=== PATIENT | female | born 1995 | race Caucasian/White ===

== ENCOUNTER 2023-11-01 23:56 | Emergency (ER) | payer BC, SELFPAY ==
[2023-11-02 00:06] VITALS: BP 163/98; PULSE 86; TEMP 36.7; O2SAT 100; BMI 32.1
--- NOTE | 2023-11-02 00:14 | ED_ITS ---
HPI - Abdominal Pain General Chief Complaint: Abdominal Pain Stated Complaint: nauseous/vomiting Time Seen by Provider: 11/02/23 00:04 Source: patient Mode of arrival: walk-in Limitations: no limitations History of Present Illness HPI narrative: This 28-year-old female who is 8 months and status post appendectomy presents for evaluation of low back and generalized abdominal pain. She states the majority of her pain is in the right lower quadrant. She is very nauseated but has not vomited. She has not had any diarrhea. She denies any urinary symptoms. She does the possibility of but is uncertain if she could be . She is not having any urinary symptoms. She thinks she may have had a fever several days ago. She is not breast-feeding. Related Data Allergies Allergy/AdvReac Type Severity Reaction Status Date / Time amoxicillin AdvReac Mild Hives Verified 11/02/23 00:06 Review of Systems ROS Status of ROS 10 or more systems reviewed and unremark able except as noted in history and below Exam Narrative Exam Narrative: Nurses note and vital signs reviewed and patient is not hypoxic. Blood pressure noted to be elevated at 163/98 General: Alert, nontoxic female, she is uncomfortable appearing, she is rubbing her lower abdomen, no respiratory distress, no active vomiting Skin: Warm, dry, no pallor noted. There is no rash noted. Head: Normocephalic, atraumatic Eye: Normal conjunctiva, no drainage, EOMI. PERRL. No scleral icterus Ears, Nose, Mouth, and Throat: oral mucosa is moist. Nares patent. Mouth without vesicles. Ear canals patent. Tm's without Erythema Cardiovascular: Regular Rate and Rhythm Respiratory: Patient is in no distress, no accessory muscle use, lungs are clear to auscultation, no wheezing, rales or rhonchi Back: non-tender, no CVA tenderness bilaterally to percussion. GI: Normal bowel sounds, Obese, soft, generalized abdominal tenderness, she localizes to the epigastrium and RUQ There is no McBurney's point tenderness, negative Rovsing sign Musculoskeletal:No CVA tenderness, no lower extremity swelling or tenderness Neurological: A&O x4, normal speech Psychiatric: Cooperative Constitutional Vital Signs, click to edit/add: Last Vital Signs Temp 98.1 F 11/02/23 00:06 Pulse 86 11/02/23 00:06 Resp 20 11/02/23 00:06 BP 163/98 H 11/02/23 00:06 Pulse Ox 100 11/02/23 00:06 O2 Del Method Room Air 11/02/23 00:06 Course Vital Signs Vital signs: Vital Signs Temperature 98.1 F 11/02/23 00:06 Pulse Rate 86 11/02/23 00:06 Respiratory Rate 20 11/02/23 00:06 Blood Pressure 163/98 H 11/02/23 00:06 Pulse Oximetry 100 11/02/23 00:06 Oxygen Delivery Method Room Air 11/02/23 00:06 Temperature 98.1 F 11/02/23 00:06 Pulse Rate 86 11/02/23 00:06 Respiratory Rate 20 11/02/23 00:06 Blood Pressure 163/98 H 11/02/23 00:06 Pulse Oximetry 100 11/02/23 00:06 Oxygen Delivery Method Room Air 11/02/23 00:06 MDM - Abdominal Pain MDM Narrative Medical decision making narrative: This 28-year-old female presents for evaluation of 3 days of abdominal pain and low back pain. She has had nausea but no vomiting. She does possibility of but is not on control. She thinks she may have had a fever several days ago but has not had a documented fever. She was tender in epigastrium and right upper quadrant. She has had her appendix out in the past. She denies any chest pain or shortness of breath. Her test was negative and she was medicated with IV fluids, Zofran and Toradol. She is driving so narcotics were withheld. She had moderate relief of her pain but still had ongoing nausea and was remedicated with IV Reglan. Routine labs are reviewed. She has a normal white count and hemoglobin. Electrolytes and liver function tests are normal. Her lipase is mildly elevated at 94. CT scan of the abdomen and pelvis shows gallbladder wall thickening and some cholecystic fluid without notable gallstones and a 7 mm left-sided kidney stone. The results of the scans were discussed with her and she was given a copy to share with her family physician. It also recommended the right upper quadrant ultrasound for further evaluation of the gallbladder. She will be discharged home with 2 [place] as a home pack and prescription for [place], Zofran and a requisition for right upper quadrant ultrasound with referral to outpatient general surgery. A low fat diet was discussed with her. Medical Records Medical records narrative: The [address] [address] [address] Scan Report Signed Patient: SILVER ALCOCER MR#: [id number] : 1995 Acct:[id number] Age/Sex: 28 / F ADM Date: 11/01/23 Loc: ER Attending Dr: Ordering Physician: Therese Carey Date of Service: 11/02/23 Procedure(s): CT abdomen pelvis w con Accession Number(s): [id number] cc: Physician,Non-Staff M.D.~ The [address] [address] Patient Name: SILVER ALCOCER MRN: [facility]:[id number] date: 1995 Sex: F Assigned Patient Location: ER Current Patient Location: ER Accession/Order Number: [id number] Exam Date: 11/02/2023 01:03 Report Date: 11/02/2023 01:40 At the request of: THERESE CAREY Procedure: CT abdomen pelvis w con EXAM: CT abdomen pelvis w con HISTORY: RLQ abd pain COMPARISON: Pelvic ultrasound 02/27/2020 TECHNIQUE: CT of abdomen and pelvis with intravenous contrast. Dose reduction techniques were achieved by using automated exposure control and/or adjustment of mA and/or kV according to patient size and/or use of iterative reconstruction technique. FINDINGS: TUBES AND IMPLANTS: None. LOWER CHEST: Unremarkable ABDOMEN and PELVIS ABDOMINAL WALL AND SOFT TISSUES: Unremarkable. BONES: No suspicious lesions. Multilevel degenerative changes of the spine. ARTERIES: No aortoiliac aneurysm VEINS: Unremarkable. LYMPH NODES: Unremarkable. PERITONEUM/ RETROPERITONEUM: Trace free pelvic fluid BOWEL: No obstruction APPENDIX: Unremarkable as visualized portions. LIVER: No suspicious lesions. GALLBLADDER: There is submucosal edema or pericholecystic fluid. No radiopaque stones. BILE DUCTS: Not dilated SPLEEN: Borderline enlarged measuring 12.6 centimeters PANCREAS: Unremarkable. ADRENALS: Unremarkable. KIDNEYS/ URETERS: Nonobstructive 7 millimeter left renal calculus seen within a mid pole calyx. No right stones or hydronephrosis.. REPRODUCTIVE ORGANS: Unremarkable URINARY BLADDER: Unremarkable. CT/CT abdomen pelvis w con IMPRESSION: 1. Gallbladder wall edema or pericholecystic fluid without radiopaque stones. This may represent acute on chronic cholecystitis. Right upper quadrant ultrasound for further evaluation as warranted. 2. Appendix appears unremarkable in its visualized segments. No secondary signs of inflammation to suggest acute appendicitis. 3. Trace pelvic fluid thought to be physiologic. 4. Nonobstructing 7 millimeter left renal calculus. 5. Borderline enlarged spleen. Electronically authenticated by: FORD BARRY Date: 11/02/2023 01:40 Lab Data Labs: Lab Results 11/02/23 11/02/23 Range/Units 00:25 00:30 WBC 10.4 (4.0-11.0) 10^3/uL RBC 4.85 (4.20-5.40) 10^6/uL Hgb 14.6 (12.0-16.0) g/dL Hct 41.6 (36.0-48.0) % MCV 85.8 (81.0-99.0) fL MCH 30.1 (26.7-34.0) pg MCHC 35.1 (29.9-35.2) g/dL RDW 11.9 (11.0-15.0) % Plt Count 335 (150-450) 10^3/uL MPV 9.6 (9.5-13.5) fL Neut % (Auto) 66.0 (43.0-75.0) % Lymph % (Auto) 25.0 (20.5-60.0) % Dougherty % (Auto) 8.0 (1.7-12.0) % Eos % (Auto) 0.3 L (0.9-7.0) % Baso % (Auto) 0.4 (0.2-2.0) % Neut # (Auto) 6.9 H (1.4-6.5) 10^3/uL Lymph # (Auto) 2.6 (1.2-3.8) 10^3/uL Dougherty # (Auto) 0.8 (0.3-0.8) 10^3/uL Eos # (Auto) 0.0 (0.0-0.7) 10^3/uL Baso # (Auto) 0.0 (0.0-0.1) 10^3/uL Abs Immat Gran (auto) 0.03 (0.00-0.03) 10^3/uL Imm/Tot Granulo (auto) 0.3 (0.0-0.5) % Sodium 136 (136-145) mmol/L Potassium 3.3 L (3.5-5.1) mmol/L Chloride 98 (98-107) mmol/L Carbon Dioxide 27.6 (21.0-32.0) mmol/L Anion Gap 13.7 BUN 19.0 H (7.0-18.0) mg/dL Creatinine 1.07 H (0.55-1.02) mg/dL Est GFR ( Amer) >60 (>=60) Est GFR (Non-Af Amer) >60 (>=60) BUN/Creatinine Ratio 17.8 Glucose 107 H (74-106) mg/dL Calcium 12.0 H (8.5-10.1) mg/dL Total Bilirubin 0.4 (0.2-1.0) mg/dL AST 17 (15-37) U/L ALT 32 (14-59) U/L Alkaline Phosphatase 106 (46-116) U/L Total Protein 9.1 H (6.4-8.2) g/dL Albumin 4.7 (3.4-5.0) g/dL Globulin 4.4 g/dL Albumin/Globulin Ratio 1.1 Lipase 94.0 H (16.0-77.0) U/L Urine Color Lt. yellow (YELLOW) Urine Clarity Clear (CLEAR) Urine pH 8.0 (5.0-9.0) Ur Specific Perkins 1.015 (1.005-1.025) Urine Protein Negative (NEG/TRACE) mg/dL Urine Glucose (UA) Negative (NEGATIVE) mg/dL Urine Ketones Negative (NEGATIVE) mg/dL Urine Occult Blood Negative (NEGATIVE) Urine Nitrite Negative (NEGATIVE) Urine Bilirubin Negative (NEGATIVE) Urine Urobilinogen 0.2 (0.2-1.0) EU/dL Ur Leukocyte Esterase Negative (NEGATIVE) Urine RBC 0-2 (0-2) #/HPF Urine WBC None seen (NONE SEEN) #/HPF Ur Squamous Epith Cells Many A (NONE/RARE) #/LPF Urine Crystals Seen A (None Seen) #/HPF Amorphous Sediment Many Urine Bacteria Moderate A (NONE SEEN) #/HPF Urine Casts None seen (NONE SEEN) #/LPF Urine Mucus None seen (NONE SEEN) Ur Culture Indicated? Yes Urine HCG, Qual Negative (NEGATIVE) Discharge Plan Discharge Stand Alone Forms: Portal Instructions Chief Complaint: Abdominal Pain Clinical Impression: Abdominal pain, Biliary colic Patient Disposition: Home, Self-Care Time of Disposition Decision: 02:14 Condition: Good Print Language: Hebrew Instructions: Biliary Colic (ED), Low Fat Diet (ED) Referrals: Milan Betts MD [Physician] - 1 week Physician,Non-StaffMD [Primary Care Provider] - 1 week
--- NOTE | 2023-11-02 00:35 | PC.NURSE ---
patient describes abdominal and back pain x3 days. Back pain is right sided to mid back, abdominal pain is bilateral lower abdomen. Pain increased last evening and has gotten so bad it is causing the patient to vomit and have constant nausea. she states she is not having pain with urination, but bladder feels heavy . Urine sample is obtained. Patient states she had 8 months ago and her incision has been hurting for a few weeks. She mentions wondering if the pain in her back could be from her epidural, but is not sure if it is in the same location. She denies history of kidney stones.
--- NOTE | 2023-11-02 00:40 | CT_ITS ---
[address] [address] Patient Name: SILVER ALCOCER MRN: [id number] date: 1995 Sex: F Assigned Patient Location: ER Current Patient Location: ER Accession/Order Number: [id number] Exam Date: 11/02/2023 01:03 Report Date: 11/02/2023 01:40 At the request of: KARINA MARKER Procedure: CT abdomen pelvis w con EXAM: CT abdomen pelvis w con HISTORY: RLQ abd pain COMPARISON: Pelvic ultrasound 02/27/2020 TECHNIQUE: CT of abdomen and pelvis with intravenous contrast. Dose reduction techniques were achieved by using automated exposure control and/or adjustment of mA and/or kV according to patient size and/or use of iterative reconstruction technique. FINDINGS: TUBES AND IMPLANTS: None. LOWER CHEST: Unremarkable ABDOMEN and PELVIS ABDOMINAL WALL AND SOFT TISSUES: Unremarkable. BONES: No suspicious lesions. Multilevel degenerative changes of the spine. ARTERIES: No aortoiliac aneurysm VEINS: Unremarkable. LYMPH NODES: Unremarkable. PERITONEUM/ RETROPERITONEUM: Trace free pelvic fluid BOWEL: No obstruction APPENDIX: Unremarkable as visualized portions. LIVER: No suspicious lesions. GALLBLADDER: There is submucosal edema or pericholecystic fluid. No radiopaque stones. BILE DUCTS: Not dilated SPLEEN: Borderline enlarged measuring 12.6 centimeters PANCREAS: Unremarkable. ADRENALS: Unremarkable. KIDNEYS/ URETERS: Nonobstructive 7 millimeter left renal calculus seen within a mid pole calyx. No right stones or hydronephrosis.. REPRODUCTIVE ORGANS: Unremarkable URINARY BLADDER: Unremarkable. CT/CT abdomen pelvis w con IMPRESSION: 1. Gallbladder wall edema or pericholecystic fluid without radiopaque stones. This may represent acute on chronic cholecystitis. Right upper quadrant ultrasound for further evaluation as warranted. 2. Appendix appears unremarkable in its visualized segments. No secondary signs of inflammation to suggest acute appendicitis. 3. Trace pelvic fluid thought to be physiologic. 4. Nonobstructing 7 millimeter left renal calculus. 5. Borderline enlarged spleen. Electronically authenticated by: FORD BARRY Date: 11/02/2023 01:40
[2023-11-02] MEDS: 0.9 % SODIUM CHLORIDE 1,000 ML 1000 ML IV (00:45)
[2023-11-02] MEDS: ONDANSETRON PF 4 MG/2 ML VIAL IV (00:45)
[2023-11-02 00:48] LABS: Basophils Percent Auto 0.4 % (0.2-2.0); Eosinophils Percent Auto 0.3 % (0.9-7.0); Hematocrit 41.6 % (36.0-48.0); Hemoglobin 14.6 g/dL (12.0-16.0); Immature Granulocytes Abs Auto 0.03 10^3/uL (0.00-0.03); Immature Granulocytes Pct Auto 0.3 % (0.0-0.5); Lymphocytes Absolute Auto 2.6 10^3/uL (1.2-3.8); Mean Corpuscular HGB Conc 35.1 g/dL (29.9-35.2); Mean Corpuscular Hemoglobin 30.1 pg (26.7-34.0); Mean Corpuscular Volume 85.8 fL (81.0-99.0); Mean Platelet Volume 9.6 fL (9.5-13.5); Monocytes Absolute Auto 0.8 10^3/uL (0.3-0.8); Neutrophils Absolute Auto 6.9 10^3/uL (1.4-6.5); Platelet Count 335 10^3/uL (150-450); Red Blood Count 4.85 10^6/uL (4.20-5.40); Red Cell Distribution Width 11.9 % (11.0-15.0); White Blood Count 10.4 10^3/uL (4.0-11.0)
[2023-11-02 00:53] LABS: HCG Qualitative Urine* NEGATIVE (NEGATIVE)
[2023-11-02 00:59] LABS: Bilirubin Urine NEGATIVE (NEGATIVE); Blood Urine NEGATIVE (NEGATIVE); Clarity Urine CLEAR (CLEAR); Color Urine LT. YELLOW (YELLOW); Glucose Urine UA NEGATIVE (NEGATIVE); Ketones Urine NEGATIVE (NEGATIVE); Leukocyte Esterase Urine NEGATIVE (NEGATIVE); Nitrite Urine NEGATIVE (NEGATIVE); Protein Urine NEGATIVE (NEG/TRACE); Specific Gravity Urine 1.015 (1.005-1.025); Urobilinogen Urine 0.2 EU/dL (0.2-1.0)
[2023-11-02 01:04] LABS: Alanine Aminotransferase 32 U/L (14-59); Albumin Globulin Ratio 1.1; Albumin Level 4.7 g/dL (3.4-5.0); Alkaline Phosphatase 106 U/L (46-116); Anion Gap 13.7; Aspartate Amino Transferase 17 U/L (15-37); BUN Creatinine Ratio 17.8; Bilirubin Total 0.4 mg/dL (0.2-1.0); Carbon Dioxide 27.6 mmol/L (21.0-32.0); Chloride 98 mmol/L (98-107); Estimated GFR (African America >60 (>=60); Estimated GFR (Non-African Ame >60 (>=60); Globulin 4.4 g/dL; Glucose 107 mg/dL (74-106); Potassium 3.3 mmol/L (3.5-5.1); Sodium 136 mmol/L (136-145); Total Protein 9.1 g/dL (6.4-8.2)
[2023-11-02 01:04] LABS: Amorphous Sediment Urine MANY; Bacteria Urine MODERATE #/HPF (NONE SEEN); Cast Seen? NONE SEEN #/LPF (NONE SEEN); Crystals Seen? Seen #/HPF (None Seen); Mucus Urine NONE SEEN (NONE SEEN); RBC Urine 0-2 #/HPF (0-2); Squamous Epithelial Cell Urine MANY #/LPF (NONE/RARE); Urine Culture Indicated YES; WBC Urine NONE SEEN #/HPF (NONE SEEN)
[2023-11-02] MEDS: KETOROLAC TROMETHAMINE 30 MG/ML VIAL IVP (01:45)
[2023-11-02] MEDS: METOCLOPRAMIDE HCL 10 MG/2 ML VIAL IVP (02:07)
[2023-11-02] MEDS: ONDANSETRON 4 MG RAPDIS TABLET SL (02:30)
[2023-11-02] MEDS: HYDROCODONE/ACET 5-325 MG TABLET 2 TAB PO (02:30)
== END 2023-11-02 02:30 | disposition home or self-care (01) ==
PROVIDERS: Emergency Provider Emergency Medicine
DX: R10.9 Unspecified abdominal pain (principal); N23 Unspecified renal colic
CPT/HCPCS: 36415; 74177; 80053; 81001; 83690; 84703; 85025; 87086; 96374; 96375; 99284; Q9967

== ENCOUNTER 2023-11-08 08:33 | Outpatient (OUT) | payer BC, SELFPAY ==
--- NOTE | 2023-11-08 08:35 | US_ITS ---
The [address] [address] Patient Name: SILVER ALCOCER MRN: [id number] date: 1995 Sex: F Assigned Patient Location: US Current Patient Location: US Accession/Order Number: [id number] Exam Date: 11/08/2023 08:40 Report Date: 11/08/2023 09:44 At the request of: KARINA MARKER Procedure: US right upper quadrant EXAM: US right upper quadrant HISTORY: Right Upper Abdominal Pain COMPARISON: None. TECHNIQUE: Grayscale, color and Doppler FINDINGS: The liver is normal in size, contour and echotexture measuring 17.2 cm in length. No hepatic mass. Hepatopedal flow in the main portal vein with velocity of 34 cm/s. The gallbladder is normal in size. The wall measures 2.5 mm, normal. Negative sonographic García sign. Echogenic material completely fills the gallbladder with acoustic shadowing likely representing a combination of gallbladder sludge and cholelithiasis. No pericholecystic fluid. The common bile duct measures 2.2 mm, normal. The visualized pancreatic body is normal. The pancreas is poorly visualized The right kidney is normal measuring 11.2 x 5.0 x 4.3 cm. Diffuse medullary hyperechogenicity, consider a medullary nephrocalcinosis No ascites US/US right upper quadrant IMPRESSION: Extensive cholelithiasis/gallbladder sludge without evidence of acute cholecystitis Findings suggesting right renal medullary nephrocalcinosis Electronically authenticated by: CALDERON OLSON Date: 11/08/2023 09:44
== END 2023-11-08 08:34 | disposition home or self-care (01) ==
LOC: US 08:33
PROVIDERS: Visit Provider Emergency Medicine
DX: R10.11 Right upper quadrant pain (principal); K80.20 Calculus of gallbladder without cholecystitis without obstruction; E83.59 Other disorders of calcium metabolism; N29 Other disorders of kidney and ureter in diseases classified elsewhere
CPT/HCPCS: 76705

== ENCOUNTER 2023-11-27 02:16 | Emergency (ER) | payer BC, SELFPAY ==
[2023-11-27 02:20] VITALS: BP 169/105; PULSE 86; TEMP 36.9; O2SAT 99; BMI 32.1
[2023-11-27 02:24] VITALS: BP 142/88; PULSE 84; O2SAT 99
--- NOTE | 2023-11-27 02:33 | ED.ABDPAIN1 ---
HPI - Abdominal Pain General Chief Complaint: Abdominal Pain Stated Complaint: ABD PAIN vomiting Time Seen by Provider: 11/27/23 02:28 Source: patient Mode of arrival: walk-in Limitations: no limitations History of Present Illness HPI narrative: patient has known gallbladder sludge/stones. Scheduled for elective cholecystectomy first week of December. Presents now complaining of pain since yesterday . Pain continues along with recurrent vomiting. No fever or dyspnea. Related Data Home Medications ?Medication ?Instructions ?Recorded ?Confirmed hydrocodone 5 mg-acetaminophen 325 tab 11/27/23 mg tablet ondansetron HCl 4 mg tablet mg 11/27/23 Allergies Allergy/AdvReac Type Severity Reaction Status Date / Time amoxicillin AdvReac Mild Hives Verified 11/27/23 02:23 Review of Systems ROS Status of ROS 10 or more systems reviewed and unremarkable except as noted in history and below Exam Constitutional Vital Signs, click to edit/add: Last Vital Signs Temp 98.4 F 11/27/23 02:20 Pulse 84 11/27/23 02:24 Resp 22 H 11/27/23 02:24 BP 142/88 H 11/27/23 02:24 Pulse Ox 99 11/27/23 02:24 Common normals: average body habitus, oriented x3, no limitations, healthy appearing, alert and well nourished General appearance: in distress (mild) Eye Common normals: EOMs intact bilaterally and conjunctivae normal Respiratory Common normals: normal respiratory effort, no retractions, no use of accessory muscles and clear to auscultation bilaterally Cardio Common normals: regular rate, regular rhythm, S1 normal heart sound and S2 normal heart sound GI Other: soft. RUQ tenderness Extremity Common normals: normal to inspection and full ROM Neuro Common normals: oriented x3, CN's II-XII intact bilaterally, moves all extremities and no focal motor deficits Psych Appearance: grossly normal Course Vital Signs Vital signs: Vital Signs Temperature 98.4 F 11/27/23 02:20 Pulse Rate 86 11/27/23 02:20 Respiratory Rate 18 11/27/23 02:20 Blood Pressure 169/105 H 11/27/23 02:20 Pulse Oximetry 99 11/27/23 02:20 Temperature 98.4 F 11/27/23 02:20 Pulse Rate 84 11/27/23 02:24 Respiratory Rate 22 H 11/27/23 02:24 Blood Pressure 142/88 H 11/27/23 02:24 Pulse Oximetry 99 11/27/23 02:24 MDM - Abdominal Pain MDM Narrative Medical decision making narrative: patient re examined after labs returned. States pain and nausea are returning. Additional fluids, anti emetics and pain meds order. GB US ordered for later this AM. care transferred to Dr Dolan at change of shift to review results of US and disposition the patient Lab Data Labs: Lab Results 11/27/23 11/27/23 Range/Units 02:58 05:37 WBC 15.1 H (4.0-11.0) 10^3/uL RBC 4.47 (4.20-5.40) 10^6/uL Hgb 13.1 (12.0-16.0) g/dL Hct 38.5 (36.0-48.0) % MCV 86.1 (81.0-99.0) fL MCH 29.3 (26.7-34.0) pg MCHC 34.0 (29.9-35.2) g/dL RDW 12.1 (11.0-15.0) % Plt Count 401 (150-450) 10^3/uL MPV 9.6 (9.5-13.5) fL Neut % (Auto) 72.7 (43.0-75.0) % Lymph % (Auto) 19.9 L (20.5-60.0) % Grainger % (Auto) 6.2 (1.7-12.0) % Eos % (Auto) 0.6 L (0.9-7.0) % Baso % (Auto) 0.3 (0.2-2.0) % Neut # (Auto) 11.0 H (1.4-6.5) 10^3/uL Lymph # (Auto) 3.0 (1.2-3.8) 10^3/uL Grainger # (Auto) 0.9 H (0.3-0.8) 10^3/uL Eos # (Auto) 0.1 (0.0-0.7) 10^3/uL Baso # (Auto) 0.1 (0.0-0.1) 10^3/uL Abs Immat Gran (auto) 0.05 H (0.00-0.03) 10^3/uL Imm/Tot Granulo (auto) 0.3 (0.0-0.5) % Sodium 140 (136-145) mmol/L Potassium 3.8 (3.5-5.1) mmol/L Chloride 101 (98-107) mmol/L Carbon Dioxide 22.9 (21.0-32.0) mmol/L Anion Gap 19.9 BUN 21.0 H (7.0-18.0) mg/dL Creatinine 1.11 H (0.55-1.02) mg/dL Est GFR ( Amer) >60 (>=60) Est GFR (Non-Af Amer) 58 L (>=60) BUN/Creatinine Ratio 18.9 Glucose 116 H (74-106) mg/dL Lactate 2.9 H* 0.8 (0.4-2.0) mmol/L Calcium 10.8 H (8.5-10.1) mg/dL Total Bilirubin 0.5 (0.2-1.0) mg/dL AST 12 L (15-37) U/L ALT 22 (14-59) U/L Alkaline Phosphatase 85 (46-116) U/L Troponin I High Sens 12.1 (4.0-51.3) pg/mL Total Protein 8.3 H (6.4-8.2) g/dL Albumin 4.4 (3.4-5.0) g/dL Globulin 3.9 g/dL Albumin/Globulin Ratio 1.1 Lipase 74.0 (16.0-77.0) U/L Discharge Plan Discharge Chief Complaint: Abdominal Pain Clinical Impression: Abdominal pain Patient Disposition: Still a Patient Prescriptions / Home Meds: No Action hydrocodone-acetaminophen 5-325 mg tablet ondansetron HCl 4 mg tablet Print Language: Italian Referrals: Physician,Non-Staff, MD [Primary Care Provider] - 1 week
--- OUTSIDE RECORDS SUMMARY | 2023-11-27 02:40 | XMS_ITS | CCD ---
Author Organization [facility] Care Team Providers Care Account Receivable Associate Name Role Phone Jeremiah, Vikas Unavailable Unavailable Aichholz, Mia Halie Unavailable Unavailable Mariza, Rosita C Unavailable Unavailable Jeremiah, Vikas J Unavailable Unavailable Aichholz, Mia Halie Unavailable Unavailable Mariza, Rosita C Unavailable Unavailable Jeremiah, Vikas J Unavailable Unavailable KARASIK ., DR RASHID Admitting Unavailabl e KARASIK ., DR RASHID Attending Unavailabl e MISC, DR ELAINE Primary Care Unavailable KARASIK ., DR RASHID Consulting Unavailabl e KARASIK ., DR RASHID Admitting Unavailabl e KARASIK ., DR RASHID Attending Unavailabl e MISC, DR ELAINE Primary Care Unavailable KARASIK ., DR RASHID Consulting Unavailabl e KARASIK ., DR RASHID Admitting Unavailabl e KARASIK ., DR RASHID Attending Unavailabl e MISC, DR ELAINE Primary Care Unavailable KARASIK ., DR RASHID Consulting Unavailabl e KARASIK ., DR RASHID Admitting Unavailabl e KARASIK ., DR RASHID Attending Unavailabl e REQUEST, DR NONE LISTED Primary Care Unavaila ble KARASIK ., DR RASHID Consulting Unavailabl e ZIEBUMBERTO, DR YOMAIRA De Jesus Consulting Unavailable MISC, DR EALINE Primary Care Unavailable PAY ., DR RUSSO Admitting Unavailable PAY ., DR RUSSO Attending Unavailable PAY ., DR RUSSO Consulting Unavailable HAY ., DR PARR Admitting Unavailable HAY ., DR PARR Attending Unavailable MISC, DR ELAINE Primary Care Unavailable HAY ., DR PARR Consulting Unavailable JENNIFER, DR JOSEPH Admitting Unavailable JENNIFER, DR JOSEPH Attending Unavailable AICHHOLZ, CASINO INVESTIGATOR MIA Primary Care Unavailable KARASIK ., DR RASHID Admitting Unavailabl e KARASIK ., DR RASHID Attending Unavailabl e REQUEST, DR NONE LISTED Primary Care Unavaila ble KARASIK ., DR RASHID Consulting Unavailabl e KARASIK ., DR RASHID Admitting Unavailisabel GLEZ ., DR RASHID Attending Unavailabl e [facility], DR ELAINE Primary Care Unavailable [place] ., DR RASHID Consulting Unavailabl e [place], DR CALDERON Young Consulting Unavailable Nataprjean carlosra, DO Dinaa Attending Provider [phone] NO FAMILY, PHYSICIAN Primary Care Provider Unava ilable Nataprjean carlosra, DO Diana Admit Provider [phone] MUNDO Ely Primary Care Provider MD Lilia Huber Attending Provider NO FAMILY, PHYSICIAN Primary Care Unavailable Nataprawira, Diana Admitting Unavailable Natnelsonra, Diana Attending Unavailable Celestina Ely Primary Care Unavailable Lilia Huber Admitting Unavailable Lilia Huber Attending Unavailable Nataprawira, Diana Admitting Unavailable Natnelsonra, Diana Attending Unavailable Celestina Ely Primary Care Unavailable NO PCP, NO PCP Primary Care Unavailable HUI POLLOCK Attending Unavailable NO PCP, NO PCP Primary Care Unavailable Allergies Allergy Classification Reported Allergen(s) Allergy Type Date of Onset Reaction(s) Facility Penicillins (antibiotic) (1 source) Amoxicillin Drug Allergy [facility] Work Phone: (10 sources) Amoxicillin; Translations: [Amoxicillin] Drug Allergy 10-12-2015 [facility] Repository Medications Current Medications Medication Drug Class(es) Dates Sig (Normalized) Sig (Original) acetaminophen 500 mg oral tablet (2 sources) Start: 02-23-2023 take 2 tablets by mouth every six hours Acetaminophen (Acetaminophen Extra Strength) 500 mg tablet Active 1000 MG PO Q6H 60 February 23, 2023 12:00am docusate sodium 100 mg oral capsule (2 sources) Start: 02-23-2023 take 1 capsule by mouth once daily at bedtime Docusate Sodium (Colace) 100 mg capsule Active 100 MG PO Daily at bedtime 30 February 23, 2023 12:00am ibuprofen 600 mg oral tablet (2 sources) Nonsteroidal Anti-inflammatory Drug Start: 02-23-2023 take 600 mg by mouth every six hours Ibuprofen Active 600 MG PO Q6H 60 February 23, 2023 12:00am Pnv,Calcium 19-Fxub-Uboxc Acid (M-Liza Plus) 27 mg iron- 1 mg tablet (2 sources) Start: 02-23-2023 Pnv,Calcium 51-Frsv-Hphok Acid (M-Liza Plus) 27 mg iron- 1 mg tablet Active TAB TABLET February 23, 2023 12:00am traMADol hydrochloride 50 mg oral tablet (2 sources) Opioid Agonist Start: 02-25-2023 take 50 mg by mouth every six hours Tramadol Active 50 MG PO Q6H 30 7 February 25, 2023 12:00am Completed/Discontinued Medications Medication Drug Class(es) Dates Sig (Normalized) Sig (Original) Nexplanon IMPL (6 sources) Progestin Nexplanon IMPL R efills: 0 DO Active Nexplanon IMPL R efills: 0 Active Magnesium (6 sources) Magnesium 500 MG Oral Tablet Refills: 0 DO Active Magnesium 500 MG Oral Tablet Refills: 0 Active ondansetron 4 mg disintegrating oral tablet (2 sources) Serotonin-3 Receptor Antagonist Start: 02-23-2023 End: 02-25-2023 take 1 tablet by mouth every six hours Ondansetron (Zofran Odt) 4 mg Tablet,Disintegrating Discontinued 4 MG PO Q6H February 23, 2023 12:00am February 25, 2023 9:36am tiZANidine 4 mg oral capsule (6 sources) Central alpha-2 Adrenergic Agonist tiZANidine HCl - 4 M G Oral Capsule Refills: 0 Active Problems Active Problems Problem Classification Problem Date Documented Date Episodic/Chronic Biliary tract disease (1 source) Calculus of gallbladder with chronic cholecystitis without obstruction; Translations: [Calculus of gallbladder with chronic cholecystitis without obstruction] Onset: 11-22-2023 Episodic Calculus of urinary tract (1 source) Calculus of kidney; Translations: [Calculus of kidney] Onset: 11-22-2023 Episodic Headache; including migraine (6 sources) Migraine; Translations: [Migraine, unspecified, without mention of intractable migraine without mention of status migrainosus] Chronic Miscellaneous mental health disorders (1 source) Primary insomnia; Translations: [PRIMARY INSOMNIA] Onset: 11-10-2021 Chronic Nausea and vomiting (4 sources) Nausea with vomiting, unspecified; Translations: [Nausea] Onset: 07-08-2022 Episodic Other complications of ; puerperium affecting management of mother (2 sources) Deliveries by ; Translations: [Encounter for delivery without indication] 02-24-2023 Episodic Other complications of ; puerperium affecting management of mother (2 sources) Encounter for delivery without indication; Translations: [ delivery, without mention of indication, delivered, with or without mention of antepartum condition] 02-26-2023 Episodic Other and delivery including normal (13 sources) Encounter for supervision of normal first , first trimester; Translations: [Encounter for supervision of other normal , first trimester] Onset: 08-10-2022 Episodic Other screening for suspected conditions (not mental disorders or infectious disease) (5 sources) Encounter for other specified screening; Translations: [Encounter for screening, unspecified] Onset: 10-07-2022 Episodic Other skin disorders (6 sources) Mass of neck; Translations: [Swelling, mass, or lump in head and neck] Episodic Other skin disorders (6 sources) Mass of thoracic structure; Translations: [Swelling, mass, or lump in chest] Episodic Residual codes; unclassified (4 sources) Obstructive sleep apnea (adult) (pediatric); Translations: [OBSTRUCTIVE SLEEP APNEA] Onset: 11-08-2021 Chronic Residual codes; unclassified (1 source) Idiopathic hypersomnia with long sleep time; Translations: [IDIO HYPERSOMNIA W/LONG SLEEP TIME] Onset: 11-10-2021 Chronic Residual codes; unclassified (1 source) History of uterine scar from previous surgery; Translations: [History of uterine scar from previous surgery] Onset: 02-23-2023 Episodic Residual codes; unclassified (1 source) Pain, unspecified; Translations: [Pain, unspecified] Onset: 11-22-2023 Episodic Spondylosis; intervertebral disc disorders; other back problems (6 sources) Neck pain; Translations: [Cervicalgia] Episodic Substance-related disorders (1 source) Cannabis use, unspecified, uncomplicated; Translations: [Cannabis use, unspecified, uncomplicated] Onset: 11-22-2023 Episodic Unclassified (1 source) Encounter for care and examination of lactating mother; Translations: [Encounter for care and examination of lactating mother] Onset: 02-27-2023 Unclassified (1 source) Encounter for screening for Streptococcus B; Translations: [Encounter for screening for Streptococcus B] Onset: 01-31-2023 Unclassified (1 source) Cholelithiasis Onset: 11-22-2023 Past or Other Problems Problem Classification Problem Date Documented Da te Episodic/Chronic Fluid and electrolyte disorders (1 source) Dehydration; Translations: [DEHYDRATION] Onset: 07-14-2022 Episodic Other aftercare (1 source) Other termite treater (current) drug therapy; Translations: [OTH LAN SUPPORT SPECIALIST CURRENT DRUG THERAPY] Onset: 07-12-2022 Episodic Other complications of (4 sources) Mild hyperemesis gravidarum; Translations: [MILD HYPEREMESIS GRAVIDARUM] Onset: 07-12-2022 Episodic Other complications of (1 source) Hyperemesis gravidarum with metabolic disturbance; Translations: [HYPEREMESIS W/METAB DISTURB] Onset: 07-14-2022 Episodic Other complications of (1 source) Other specified related conditions, first trimester; Translations: [OTH SPEC PREG RELATED COND 1ST TRI] Onset: 07-14-2022 Episodic Other complications of (1 source) Unspecified infection of urinary tract in , first trimester; Translations: [UNS INF URINARY TRACT PREG 1ST TRI] Onset: 07-14-2022 Episodic Residual codes; unclassified (1 source) 8 weeks gestation of ; Translations: [8 WEEKS GESTATION OF ] Onset: 07-14-2022 Episodic Residual codes; unclassified (1 source) Less than 8 weeks gestation of ; Translations: [< 8 WEEKS GESTATION ] Onset: 07-12-2022 Episodic Screening and history of mental health and substance abuse codes (1 source) Personal history of nicotine dependence; Translations: [PERSONAL HISTORY OF NICOTINE DEPEND] Onset: 07-14-2022 Episodic Unclassified (5 sources) Patient encounter status; Translations: [Preop testing] Urinary tract infections (1 source) Urinary tract infection, site not specified; Translations: [UTI SITE NOT SPECIFIED] Onset: 07-14-2022 Episodic NEGATED: Highlighted row has not occurred!Residual codes; unclassified (4 sources) Disease Episodic Results Test Name Value Interpretation Reference Range Facil ity Alanine aminotransferase [En zymatic activity/volume] in Serum or PlasmaOrdered By: Mitra Degroot on 02-25-2023 ALT [Catalytic activity/Vol] 12 U/L 752 [facility] Albumin [Mass/volume] in Ser um or Plasma by Bromocresol green (BCG) dye binding methoOrdered By: Mitra Degroot on 02-25-2023 Albumin BCG dye [Mass/Vol] 3.4 g/dL 3.5-5.7 [facility] Alkaline phosphatase [Enzyma tic activity/volume] in Serum or PlasmaOrdered By: Mitra Degroot on 02-25-2023 ALP [Catalytic activity/Vol] 107 U/L 34-104 [facility] Aspartate aminotransferase [ Enzymatic activity/volume] in Serum or PlasmaOrdered By: Mitra Degroot on 02-25-2023 AST [Catalytic activity/Vol] 11 U/L 13-39 [facility] Basophils Auto (Bld) [#/Vol] Ordered By: Mitra Degroot on 02-25-2023 Basophils (Bld) [#/Vol] 0.1 10*3/uL 0.0-0.2 [facility] Basophils/100 WBC Auto (Bld) Ordered By: Mitra Degroot on 02-25-2023 Basophils/100 WBC (Bld) 0.4 % . [facility] Bilirubin.total [Mass/volume ] in Serum or PlasmaOrdered By: Mitra Degroot on 02-25-2023 Bilirubin [Mass/Vol] 0.3 mg/dL 0.3-1.0 [facility] Calcium [Mass/volume] in Ser um or PlasmaOrdered By: Mitra Degroot 02-25-2023 Calcium [Mass/Vol] 11.3 mg/dL 8.6-10.3 [facility] Carbon dioxide, total [Moles /volume] in Serum or PlasmaOrdered By: Mitra Degroot on 02-25-2023 CO2 [Moles/Vol] 26.0 mmol/L 21.0-31.0 [facility] Chloride [Moles/volume] in S ophelia or PlasmaOrdered By: Mitra Degroot on 02-25-2023 Chloride [Moles/Vol] 106 mmol/L 98-107 [facility] Complete Blood Count Auto Di ffon 02-25-2023 Basophils (Bld) [#/Vol] 0.1 10*3/uL Normal 0.0-0.2 [facility] Comment on above: Result Comment: PERF ORMED BY: [place] [address] PATHOLOGIST [employer] FLORY JAIN M.D. Performed By: #### C MP, CBC #### [address] Basophils/100 WBC (Bld) 0.4 % Normal . [facility] Comment on above: Performed By: #### C MP, CBC #### [address] Eosinophils (Bld) [#/Vol] 0.0 10*3/uL Normal 0.0-0.45 [facility] Comment on above: Performed By: #### C MP, CBC #### [address] Eosinophils/100 WBC (Bld) 0.3 % Normal . [facility] Comment on above: Performed By: #### C MP, CBC #### [address] Erythrocyte distribution width (RBC) [Ratio] 14.1 % Normal 11.9-15.3 [facility] Comment on above: Performed By: #### C MP, CBC #### [address] Hematocrit (Bld) [Volume fraction] 34.4 % Normal 34.0-46.4 [facility] Comment on above: Performed By: #### C MP, CBC #### [place] [address] [place] Hemoglobin (Bld) [Mass/Vol] 11.5 g/dL Low 11.8-15.4 [facility] Comment on above: Performed By: #### C MP, CBC #### [address] Lymphocytes (Bld) [#/Vol] 2.3 10*3/uL Normal 1.00-4.8 [facility] Comment on above: Performed By: #### C MP, CBC #### [address] Lymphocytes/100 WBC (Bld) 14.7 % Normal . [facility] Comment on above: Performed By: #### C MP, CBC #### [address] MCH (RBC) [Entitic mass] 29.9 pg Normal 24.7-34.3 [facility] Comment on above: Performed By: #### C MP, CBC #### [address] MCV (RBC) [Entitic vol] 90.1 fL Normal 80-100 [facility] Comment on above: Performed By: #### C MP, CBC #### [address] Mean Corpuscular HGB Conc 33.2 g/dL Normal 32.0-35.0 [facility] Comment on above: Performed By: #### C MP, CBC #### [address] Monocytes (Bld) [#/Vol] 1.0 10*3/uL High 0.0-0.8 [facility] Comment on above: Performed By: #### C MP, CBC #### [address] Monocytes/100 WBC (Bld) 6.6 % Normal . [facility] Comment on above: Performed By: #### C MP, CBC #### [address] Neutrophils (Bld) [#/Vol] 12.2 10*3/uL High 1.8-7.7 [facility] Comment on above: Performed By: #### C MP, CBC #### [address] Neutrophils/100 WBC (Bld) 78.0 % Normal . [facility] Comment on above: Performed By: #### C MP, CBC #### [place] [address] [place] NRBC% 0.0 /100{WBC} Normal 0-0.5 [facility] Comment on above: Performed By: #### C MP, CBC #### [address] Platelet mean volume (Bld) [Entitic vol] 7.8 fL Normal 6.3-10.7 [facility] Comment on above: Performed By: #### C MP, CBC #### [address] Platelets (Bld) [#/Vol] 348 10*3/uL Normal 150-450 [facility] Comment on above: Performed By: #### C MP, CBC #### [address] RBC (Bld) [#/Vol] 3.82 10*6/uL Normal 3.60-5.00 [facility] Comment on above: Performed By: #### C MP, CBC #### [address] WBC (Bld) [#/Vol] 15.7 10*3/uL High 3.8-11.6 [facility] Comment on above: Performed By: #### C MP, CBC #### [address] Comprehensive Metabolic Pane namrata 02-25-2023 Albumin [Mass/Vol] 3.4 g/dL Low 3.5-5.7 [facility] Comment on above: Performed By: #### C MP, CBC #### [address] Albumin/Globulin [Mass ratio] 1.0 {ratio} Normal [facility] Comment on above: Performed By: #### C MP, CBC #### [address] ALP [Catalytic activity/Vol] 107 U/L High 34-104 [facility] Comment on above: Performed By: #### C MP, CBC #### [place] [id number] [place] ALT [Catalytic activity/Vol] 12 U/L Normal 7-52 [facility] Comment on above: Performed By: #### C MP, CBC #### [address] Anion gap [Moles/Vol] 9.5 mmol/L Normal 6.0-15.0 [facility] Comment on above: Performed By: #### C MP, CBC #### [address] AST [Catalytic activity/Vol] 11 U/L Low 13-39 [facility] Comment on above: Performed By: #### C MP, CBC #### [address] Bilirubin [Mass/Vol] 0.3 mg/dL Normal 0.3-1.0 [facility] Comment on above: Performed By: #### C MP, CBC #### [address] Calcium [Mass/Vol] 11.3 mg/dL High 8.6-10.3 [facility] Comment on above: Performed By: #### C MP, CBC #### [address] Chloride [Moles/Vol] 106 mmol/L Normal 98-107 [facility] Comment on above: Performed By: #### C MP, CBC #### [facility] [address] [place] [address] CO2 [Moles/Vol] 26.0 mmol/L Normal 21.0-31.0 [facility] Comment on above: Performed By: #### C MP, CBC #### [facility] [address] [place] [address] Creatinine [Mass/Vol] 0.99 mg/dL Normal 0.60-1.20 [facility] Comment on above: Performed By: #### C MP, CBC #### [facility] [address] [place] [address] [place] Creatinine Clr Calc Pharmacy 81.19 Normal [facility] Comment on above: Result Comment: PERF ORMED BY: [place] [address] PATHOLOGIST [employer] FLORY JAIN M.D. Performed By: #### C MP, CBC #### [place] [address] [place] GFR/1.73 sq M.predicted MDRD (S/P/Bld) [Vol rate/Area] mL/min/{1.73_m2} [facility] Comment on above: Performed By: #### C MP, CBC #### [place] [address] [place] Globulin (S) [Mass/Vol] 3.3 g/dL [facility] Comment on above: Performed By: #### C MP, CBC #### [address] Glucose [Mass/Vol] 73 mg/dL Normal 70-100 [facility] Comment on above: Result Comment: [facility] Glucose Reference Range is dependent on time and content of last meal. Glucose of more than 200 mg/dL in a nonstressed, ambulatory subject supports the diagnosis of Diabetes Mellitus. ADA recommended reference range Performed By: #### C MP, CBC #### [address] Potassium [Moles/Vol] 4.5 mmol/L Normal 3.5-5.1 [facility] Comment on above: Performed By: #### C MP, CBC #### [place] [address] [place] Protein [Mass/Vol] 6.7 g/dL Normal 6.4-8.9 [facility] Comment on above: Performed By: #### C MP, CBC #### [place] [address] [place] Sodium [Moles/Vol] 137 mmol/L Normal 136-145 [facility] Comment on above: Performed By: #### C MP, CBC #### [place] [address] [place] Urea nitrogen [Mass/Vol] 12 mg/dL Normal 7-25 [facility] Comment on above: Performed By: #### C MP, CBC #### [facility] [address] Creatinine [Mass/volume] in Serum or PlasmaOrdered By: Mitra Degroot on 02-25-2023 Creatinine [Mass/Vol] 0.99 mg/dL 0.60-1.20 [facility] Eosinophils Auto (Bld) [#/Vo l]Ordered By: Mitra Degroot on 02-25-2023 Eosinophils (Bld) [#/Vol] 0.0 10*3/uL 0.0-0.45 [facility] Eosinophils/100 WBC Auto (Bl d)Ordered By: Mitra Degroot on 02-25-2023 Eosinophils/100 WBC (Bld) 0.3 % . [facility] Erythrocyte distribution wid th Auto (RBC) [Ratio]Ordered By: Mitra Degroot on 02-25-2023 Erythrocyte distribution width (RBC) [Ratio] 14.1 % 11.9-15.3 [facility] Globulin Calc (S) [Mass/Vol] Ordered By: Mitra Degroot 02-25-2023 Globulin (S) [Mass/Vol] 3.3 g/dL [facility] Glucose [Mass/volume] in Ser um or PlasmaOrdered By: Mitra Degroot on 02-25-2023 Glucose [Mass/Vol] 73 mg/dL 70-100 [facility] Comment on above: ADA recommended refe rence rangeRandom Glucose Reference Range is dependent on time and content of last meal. Glucose of more than 200 mg/dL in a nonstressed, ambulatory subject supports the diagnosis of Diabetes Mellitus. Hematocrit Auto (Bld) [Volum e fraction]Ordered By: Mitra Degroot on 02-25-2023 Hematocrit (Bld) [Volume fraction] 34.4 % 34.0-46.4 [facility] Hemoglobin [Mass/volume] in BloodOrdered By: Mitra Degroot 02-25-2023 Hemoglobin (Bld) [Mass/Vol] 11.5 g/dL 11.8-15.4 [facility] Leukocytes [#/volume] correc rojas for nucleated erythrocytes in Blood by Automated counOrdered By: Mitra Degroot on 02-25-2023 WBC corrected for nucl RBC Auto (Bld) [#/Vol] 15.7 10*3/uL 3.8-11.6 [facility] Lymphocytes Auto (Bld) [#/Vo l]Ordered By: Mitra Degroot on 02-25-2023 Lymphocytes (Bld) [#/Vol] 2.3 10*3/uL 1.00-4.8 [facility] Lymphocytes/100 WBC Auto (Bl d)Ordered By: Mitra Degroot on 02-25-2023 Lymphocytes/100 WBC (Bld) 14.7 % . [facility] MCH Auto (RBC) [Entitic mass ]Ordered By: Mitra Degroot on 02-25-2023 MCH (RBC) [Entitic mass] 29.9 pg 24.7-34.3 [facility] MCHC Auto (RBC) [Mass/Vol]Or dered By: Mitra Degroot on 02-25-2023 MCHC (RBC) [Mass/Vol] 33.2 g/dL 32.0-35.0 [facility] MCV Auto (RBC) [Entitic vol] Ordered By: Mitra Degroot on 02-25-2023 MCV (RBC) [Entitic vol] 90.1 fL 80-100 [facility] Monocytes Auto (Bld) [#/Vol] Ordered By: Mitra Degroot on 02-25-2023 Monocytes (Bld) [#/Vol] 1.0 10*3/uL 0.0-0.8 [facility] Monocytes/100 WBC Auto (Bld) Ordered By: Mitra Degroot on 02-25-2023 Monocytes/100 WBC (Bld) 6.6 % . [facility] Neutrophils Auto (Bld) [#/Vo l]Ordered By: Mitra Degroot on 02-25-2023 Neutrophils (Bld) [#/Vol] 12.2 10*3/uL 1.8-7.7 [facility] Neutrophils/100 WBC Auto (Bl d)Ordered By: Mitra Degroot on 02-25-2023 Neutrophils/100 WBC (Bld) 78.0 % . [facility] No Panel InformationOrdered By: Mitra Degroot on 02-25-2023 Estimated GFR (CKD-EPI) > 60.0 mL/Min [facility] Creatinine Clearance (Chem 81.19 [facility] Nucleated erythrocytes [Pres ence] in Blood by Automated countOrdered By: Mitra Degroot on 02-25-2023 Nucleated RBC Auto Ql (Bld) 0.0 /100{WBC} 0-0.5 [facility] Platelet mean volume Auto (B ld) [Entitic vol]Ordered By: Mitra Degroot on 02-25-2023 Platelet mean volume (Bld) [Entitic vol] 7.8 fL 6.3-10.7 [facility] Platelets Auto (Bld) [#/Vol] Ordered By: Mitra Degroot on 02-25-2023 Platelets (Bld) [#/Vol] 348 10*3/uL 150-450 [facility] Potassium [Moles/volume] in Serum or PlasmaOrdered By: Mitra Degroot on 02-25-2023 Potassium [Moles/Vol] 4.5 mmol/L 3.5-5.1 [facility] Protein [Mass/volume] in Ser um or PlasmaOrdered By: Mitra Degroot on 02-25-2023 Protein [Mass/Vol] 6.7 g/dL 6.4-8.9 [facility] RBC Auto (Bld) [#/Vol]Ordere d By: Mitra Degroot on 02-25-2023 RBC (Bld) [#/Vol] 3.82 10*6/uL 3.60-5.00 [facility] Serum or plasma albumin/glob ulin mass ratioOrdered By: Mitra Degroot on 02-25-2023 Albumin/Globulin [Mass ratio] 1.0 {ratio} [facility] Serum or plasma anion gap de terminationOrdered By: Mitra Degroot on 02-25-2023 Anion gap [Moles/Vol] 9.5 mmol/L 6.0-15.0 [facility] Sodium [Moles/volume] in Ser um or PlasmaOrdered By: Mitra Degroot on 02-25-2023 Sodium [Moles/Vol] 137 mmol/L 136-145 [facility] Urea nitrogen [Mass/volume] in Serum or PlasmaOrdered By: Mitra Degroot on 02-25-2023 Urea nitrogen [Mass/Vol] 12 mg/dL 7-25 [facility] WBC Auto (Bld) [#/Vol]Ordere d By: Mitra Degroot on 02-25-2023 WBC (Bld) [#/Vol] 15.7 10*3/uL 3.8-11.6 [facility] Complete Blood Count Auto Di ffon 02-24-2023 Basophils (Bld) [#/Vol] 0.0 10*3/uL Normal 0.0-0.2 [facility] Comment on above: Result Comment: PERF ORMED BY: [facility] [address] [place] [address] PATHOLOGIST [employer] FLORY JAIN M.D. Performed By: #### R MS W RFX #### [facility] , Basophils/100 WBC (Bld) 0.2 % Normal . [facility] Comment on above: Performed By: #### R MS W RFX #### [facility] , Eosinophils (Bld) [#/Vol] 0.0 10*3/uL Normal 0.0-0.45 [facility] Comment on above: Performed By: #### R MS W RFX #### [facility] , Eosinophils/100 WBC (Bld) 0.0 % Normal . [facility] Comment on above: Performed By: #### R MS W RFX #### [facility] , Erythrocyte distribution width (RBC) [Ratio] 13.8 % Normal 11.9-15.3 [facility] Comment on above: Performed By: #### R MS W RFX #### [facility] , Hematocrit (Bld) [Volume fraction] 28.8 % Low 34.0-46.4 [facility] Comment on above: Performed By: #### R MS W RFX #### [facility] , Hemoglobin (Bld) [Mass/Vol] 9.9 g/dL Low 11.8-15.4 [facility] Comment on above: Performed By: #### R MS W RFX #### [facility] , Lymphocytes (Bld) [#/Vol] 3.1 10*3/uL Normal 1.00-4.8 [facility] Comment on above: Performed By: #### R MS W RFX #### [facility] , Lymphocytes/100 WBC (Bld) 15.8 % Normal . [facility] [facility] Comment on above: Performed By: #### R MS W RFX #### [facility] , MCH (RBC) [Entitic mass] 30.5 pg Normal 24.7-34.3 [facility] Comment on above: Performed By: #### R MS W RFX #### [facility] , MCV (RBC) [Entitic vol] 88.7 fL Normal 80-100 [facility] Comment on above: Performed By: #### R MS W RFX #### [facility] , Mean Corpuscular HGB Conc 34.4 g/dL Normal 32.0-35.0 [facility] Comment on above: Performed By: #### R MS W RFX #### [facility] , Monocytes (Bld) [#/Vol] 1.2 10*3/uL High 0.0-0.8 [facility] Comment on above: Performed By: #### R MS W RFX #### [facility] , Monocytes/100 WBC (Bld) 6.3 % Normal . [facility] Comment on above: Performed By: #### R MS W RFX #### [facility] , Neutrophils (Bld) [#/Vol] 15.1 10*3/uL High 1.8-7.7 [facility] Comment on above: Performed By: #### R MS W RFX #### [facility] , Neutrophils/100 WBC (Bld) 77.7 % Normal . [facility] Comment on above: Performed By: #### R MS W RFX #### [facility] , NRBC% 0.0 /100{WBC} Normal 0-0.5 [facility] Comment on above: Performed By: #### R MS W RFX #### [facility] , Platelet mean volume (Bld) [Entitic vol] 8.1 fL Normal 6.3-10.7 [facility] Comment on above: Performed By: #### R MS W RFX #### [facility] , Platelets (Bld) [#/Vol] 286 10*3/uL Normal 150-450 [facility] Comment on above: Performed By: #### R MS W RFX #### [facility] , RBC (Bld) [#/Vol] 3.24 10*6/uL Low 3.60-5.00 [facility] Comment on above: Performed By: #### R MS W RFX #### [facility] , WBC (Bld) [#/Vol] 19.4 10*3/uL High 3.8-11.6 [facility] Comment on above: Performed By: #### R MS W RFX #### [facility] , ABO/RH Typeon 02-23-2023 ABO and Rh group Nom (Bld) Blood group A Rh(D) positive Normal [facility] Comment on above: Result Comment: PERF ORMED BY: [facility] [place] [address] PATHOLOGIST [employer] FLORY JAIN M.D. ABO/Rh Retypeon 02-23-2023 ABO/RH Recheck Result Positive Normal [facility] Comment on above: Result Comment: PERF ORMED BY: [facility] [place] [address] PATHOLOGIST [employer] JAIN M.D. Amphetamine Screen Ql (U)Ord ered By: DIANA SORENSON on 02-23-2023 Amphetamines Ql (U) Negative Negative [facility] Automated erythrocytes count in urine sediment (number/area)Ordered By: DIANA SORENSON on 02-23-2023 RBC Auto (Urine sed) [#/Area] 3-4 [HPF] 0-4 [facility] Automated leukocytes count i n urine sediment (number/area)Ordered By: DIANA SORENSON on 02-23-2023 WBC Auto (Urine sed) [#/Area] 10-19 [HPF] 0-4 [facility] Automated urine hyaline cast s count (number/volume)Ordered By: DIANA SORENSON on 02-23-2023 Hyaline casts Auto (U) [#/Vol] None seen [LPF] 0-1 [facility] Barbiturates [Presence] in U rine by Screen methodOrdered By: DIANA SORENSON on 02-23-2023 Barbiturates Screen Ql (U) Negative Negative [facility] Benzodiazepines Screen Ql (U )Ordered By: DIANA SORENSON on 02-23-2023 Benzodiazepines Ql (U) Negative Negative [facility] Benzoylecgonine [Presence] i n Urine by Screen methodOrdered By: DIANA SORENSON on 02-23-2023 Benzoylecgonine Screen Ql (U) Negative Negative [facility] Bilirubin Test strip Ql (U)O rdered By: DIANA SORENSON on 02-23-2023 Bilirubin Ql (U) Negative Negative [facility] Casts typing in urine sedime nt by light microscopyOrdered By: DIANA SORENSON on 02-23-2023 Casts LM Nom (Urine sed) None seen [LPF] None Seen [facility] Color Auto (U)Ordered By: GILMAR SORENSON on 02-23-2023 Color (U) Yellow Yellow [facility] Complete Blood Count Auto Di ffon 02-23-2023 Basophils (Bld) [#/Vol] 0.0 10*3/uL Normal 0.0-0.2 [facility] Comment on above: Result Comment: PERF ORMED BY: [place] [address] PATHOLOGIST [employer] JAIN M.D. Performed By: #### C BC #### [address] Basophils/100 WBC (Bld) 0.4 % Normal . [facility] Comment on above: Performed By: #### C BC #### [address] Eosinophils (Bld) [#/Vol] 0.0 10*3/uL Normal 0.0-0.45 [facility] Comment on above: Performed By: #### C BC #### [address] Eosinophils/100 WBC (Bld) 0.4 % Normal . [facility] Comment on above: Performed By: #### C BC #### [address] Erythrocyte distribution width (RBC) [Ratio] 14.1 % Normal 11.9-15.3 [facility] Comment on above: Performed By: #### C BC #### [address] Hematocrit (Bld) [Volume fraction] 34.7 % Normal 34.0-46.4 [facility] Comment on above: Performed By: #### C BC #### [place] [address] [place] Hemoglobin (Bld) [Mass/Vol] 12.0 g/dL Normal 11.8-15.4 [facility] Comment on above: Performed By: #### C BC #### [address] Lymphocytes (Bld) [#/Vol] 2.9 10*3/uL Normal 1.00-4.8 [facility] Comment on above: Performed By: #### C BC #### [address] Lymphocytes/100 WBC (Bld) 23.1 % Normal . [facility] Comment on above: Performed By: #### C BC #### [address] MCH (RBC) [Entitic mass] 30.2 pg Normal 24.7-34.3 [facility] Comment on above: Performed By: #### C BC #### [address] MCV (RBC) [Entitic vol] 87.6 fL Normal 80-100 [facility] Comment on above: Performed By: #### C BC #### [address] Mean Corpuscular HGB Conc 34.5 g/dL Normal 32.0-35.0 [facility] Comment on above: Performed By: #### C BC #### [address] Monocytes (Bld) [#/Vol] 0.7 10*3/uL Normal 0.0-0.8 [facility] Comment on above: Performed By: #### C BC #### [address] Monocytes/100 WBC (Bld) 5.5 % Normal . [facility] Comment on above: Performed By: #### C BC #### [address] Neutrophils (Bld) [#/Vol] 9.0 10*3/uL High 1.8-7.7 [facility] Comment on above: Performed By: #### C BC #### [address] Neutrophils/100 WBC (Bld) 70.6 % Normal . [facility] Comment on above: Performed By: #### C BC #### [address] NRBC% 0.0 /100{WBC} Normal 0-0.5 [facility] Comment on above: Performed By: #### C BC #### [address] Platelet mean volume (Bld) [Entitic vol] 8.1 fL Normal 6.3-10.7 [facility] Comment on above: Performed By: #### C BC #### [address] Platelets (Bld) [#/Vol] 331 10*3/uL Normal 150-450 [facility] Comment on above: Performed By: #### C BC #### [address] RBC (Bld) [#/Vol] 3.96 10*6/uL Normal 3.60-5.00 [facility] Comment on above: Performed By: #### C BC #### [address] WBC (Bld) [#/Vol] 12.7 10*3/uL High 3.8-11.6 [facility] Comment on above: Performed By: #### C BC #### [address] Cord Blood Gason 02-23-2023 Cord Arterial Blood Total CO2 25.1 mmol/L Normal 23.0-27.0 [facility] Comment on above: Performed By: #### C ORDBG #### Point of Care testing , Cord Blood Base Excess -0.3 mmol/L Normal -3.0-3.0 [facility] Comment on above: Performed By: #### C ORDBG #### Point of Care testing , Cord Blood Capillary PO2 20.1 mm[Hg] Off scale low 90.0-100.0 [facility] Comment on above: Performed By: #### C ORDBG #### Point of Care testing , Cord Blood Frac Inspired O2 21 % Normal [facility] Comment on above: Performed By: #### C ORDBG #### Point of Care testing , Cord Blood HCO3 23.9 mmol/L Normal 23.0-29.0 [facility] Comment on above: Performed By: #### C ORDBG #### Point of Care testing , Cord Blood Oxygen Content 5.1 mmol/L Low 6.6-9.7 [facility] Comment on above: Performed By: #### C ORDBG #### Point of Care testing , Cord Blood Oxygen Sat 54.3 % Low 95.0-99.0 [facility] Comment on above: Performed By: #### C ORDBG #### Point of Care testing , Cord Blood PCO2 38.2 mm[Hg] Normal 35.0-45.0 [facility] Comment on above: Performed By: #### C ORDBG #### Point of Care testing , Cord Blood pH 7.42 Normal 7.35-7.45 [facility] Comment on above: Performed By: #### C ORDBG #### Point of Care testing , Respiratory Critical Normal [facility] Comment on above: Result Comment: Crit ical Value called on: 02/23/2023 at 14:53 PERFORMED BY: [place] [address] PATHOLOGIST [employer] JAIN M.D. Performed By: #### C ORDBG #### Point of Care testing , VBG Draw Site Umbilical Cord Normal [facility] Comment on above: Performed By: #### C ORDBG #### Point of Care testing , Dipstick and Microscopicon 0 02-23-2023 Appearance (U) Cloudy Critically abnormal Clear [facility] Comment on above: Order Comment: Name Collection Type:: Clean-Voided Midstream Performed By: #### A FEMI ONEAL OBUDS #### [facility] [address] [place] [address] [place] Bacteria,Urine 2+ High None Seen [facility] Comment on above: Order Comment: Name Collection Type:: Clean-Voided Midstream Performed By: #### A FEMI ONEAL OBUDS #### [facility] [address] [place] [address] [place] Bilirubin,Urine Negative Normal Negative [facility] Comment on above: Order Comment: Name Collection Type:: Clean-Voided Midstream Performed By: #### A DDONUAPLUS, CUU, OBUDS #### [facility] [address] [place] [address] [place] Color (U) Yellow Normal Yellow [facility] Comment on above: Order Comment: Name Collection Type:: Clean-Voided Midstream Performed By: #### A DDONUAPLUS, CUU, OBUDS #### [facility] [address] [place] [address] [place] Glucose Ql (U) Normal Normal Normal [facility] Comment on above: Order Comment: Name Collection Type:: Clean-Voided Midstream Performed By: #### A DDONUAPLUS, CUU, OBUDS #### [facility] [address] [place] [address] [place] Hyaline Casts,Urine None Seen Normal 0-1 [facility] Comment on above: Order Comment: Name Collection Type:: Clean-Voided Midstream Performed By: #### A DDONUAPLUS, CUU, OBUDS #### [facility] [address] [place] [address] [place] Ketones Ql (U) Trace High Negative [facility] Comment on above: Order Comment: Name Collection Type:: Clean-Voided Midstream Performed By: #### A DDONUAPLUS, CUU, OBUDS #### [facility] [address] [place] [address] [place] Leukocyte esterase Test strip Ql (U) 2+ High Negative [facility] Comment on above: Order Comment: Name Collection Type:: Clean-Voided Midstream Performed By: #### A DDONUAPLUS, CUU, OBUDS #### [facility] [address] [place] [address] [place] Nitrite,Urine Negative Normal Negative [facility] Comment on above: Order Comment: Name Collection Type:: Clean-Voided Midstream Performed By: #### A DDONUAPLUS, CUU, OBUDS #### [address] Occult Blood,Urine Negative Normal Negative [facility] Comment on above: Order Comment: Name Collection Type:: Clean-Voided Midstream Result Comment: PERF ORMED BY: [place] [address] PATHOLOGIST [employer] JAIN M.D. Performed By: #### A DDONUAPLUS, CUU, OBUDS #### [address] Other Casts,Urine None Seen Normal None Seen [facility] Comment on above: Order Comment: Name Collection Type:: Clean-Voided Midstream Result Comment: PERF ORMED BY: [place] [address] PATHOLOGIST [employer] JAIN M.D. Performed By: #### A DDONUAPLUS, CUU, OBUDS #### [address] pH (U) 7.0 [pH] Normal 5.0-9.0 [facility] Comment on above: Order Comment: Name Collection Type:: Clean-Voided Midstream Performed By: #### A DDONUAPLUS, CUU, OBUDS #### [address] Protein (U) [Mass/Vol] 30 mg/dL High Negative [facility] Comment on above: Order Comment: Name Collection Type:: Clean-Voided Midstream Performed By: #### A DDONUAPLUS, CUU, OBUDS #### [place] [address] [place] RBC,Urine 3-4 Normal 0-4 [facility] Comment on above: Order Comment: Name Collection Type:: Clean-Voided Midstream Performed By: #### A DDONUAPLUS, CUU, OBUDS #### [place] [address] [place] Specificy [employer],Urine 1.016 Normal 1.001-1.030 [facility] Comment on above: Order Comment: Name Collection Type:: Clean-Voided Midstream Performed By: #### A DDONUAPLUS, CUU, OBUDS #### [facility] [address] Squamous Epithelial Cell,Urine 10-19 High 0-2 [facility] Comment on above: Order Comment: Name Collection Type:: Clean-Voided Midstream Performed By: #### A DDONUAPLUS, CUU, OBUDS #### [facility] [address] Urobilinogen,Urine Normal Normal Normal [facility] Comment on above: Order Comment: Name Collection Type:: Clean-Voided Midstream Performed By: #### A DDONUAPLUS, CUU, OBUDS #### [facility] [address] [place] [address] WBC,Urine 10-19 High 0-4 [facility] Comment on above: Order Comment: Name Collection Type:: Clean-Voided Midstream Performed By: #### A DDONUAPLUS, CUU, OBUDS #### [facility] [address] [place] [address] Ketones Auto test strip (U) [Mass/Vol]Ordered By: DIANA SORENSON on 02-23-2023 Ketones (U) [Mass/Vol] Trace Negative [facility] Nitrite Test strip Ql (U)Ord ered By: DIANA SORENSON on 02-23-2023 Nitrite Ql (U) Negative Negative [facility] No Panel InformationOrdered By: DIANA SORENSON on 02-23-2023 Blood Gas Critical Value See comment [facility] Comment on above: Critical Value louis d on: 02/23/2023 at 14:53 Blood Gas Sample Site Umbilical cord [facility] Cord Arterial Bld Oxygen Saturation 54.3 % 95.0-99.0 [facility] Cord Arterial Blood Base Excess -0.3 mmol/L -3.0-3.0 [facility] Cord Arterial Blood O2 Content 5.1 mmol/L 6.6-9.7 [facility] Cord Blood HCO3 23.9 mmol/L 23.0-29.0 [facility] Cord Blood PCO2 38.2 mm[Hg] 35.0-45.0 [facility] Cord Blood pH 7.42 7.35-7.45 [facility] Cord Blood PO2 20.1 mm[Hg] 90.0-100.0 [facility] Cord Blood Total CO2 25.1 mmol/L 23.0-27.0 [facility] FiO2 21 % [facility] OB Urine Drug Screen (NO THC )on 02-23-2023 Amphetamine Screen,Urine Negative Normal Negative [facility] Comment on above: Performed By: #### A DDONUAPLUS, CUU, OBUDS #### [facility] [address] [place] [address] [place] Barbiturate Screen,Urine Negative Normal Negative [facility] Comment on above: Performed By: #### A DDONUAPLUS, CUU, OBUDS #### [facility] [address] [place] [address] [place] Benzodiazepines Screen,Urine Negative Normal Negative [facility] Comment on above: Performed By: #### A DDONUAPLUS, CUU, OBUDS #### [facility] [address] [place] [address] [place] Cocaine Screen,Urine Negative Normal Negative [facility] Comment on above: Performed By: #### A DDONUAPLUS, CUU, OBUDS #### [facility] [address] [place] [address] [place] Opiate Screen,Urine Negative Normal Negative [facility] Comment on above: Performed By: #### A DDONUAPLUS, CUU, OBUDS #### [facility] [address] [place] [address] [place] Phencyclidine Screen, Urine Negative Normal Negative [facility] Comment on above: Result Comment: Thes e are unconfirmed results and should not be used for legal purposes. Drug Cut-Off Concentration: AMPH 1000 ng/mL KIMMY 200 ng/mL DILMA 200 ng/mL COCM 300 ng/mL OP 300 ng/mL PCP 25 ng/mL PERFORMED BY: [place] [address] PATHOLOGIST [employer] JAIN M.D. Performed By: #### A FEMI ONEAL OBUDS #### [address] Opiates [Presence] in Urine by Screen methodOrdered By: DIANA SORENSON on 02-23-2023 Opiates Screen Ql (U) Negative Negative [facility] Phencyclidine Screen Ql (U)O rdered By: DIANA SORENSON on 02-23-2023 Phencyclidine Ql (U) Negative Negative [facility] Comment on above: These are unconfirme d results and should not be used for legal purposes. Drug Cut-Off Concentration: AMPH 1000 ng/mL KIMMY 200 ng/mL DILMA 200 ng/mL COCM 300 ng/mL OP 300 ng/mL PCP 25 ng/mL Protein Auto test strip (U) [Mass/Vol]Ordered By: DIANA SORENSON on 02-23-2023 Protein (U) [Mass/Vol] 30 mg/dL Negative [facility] RPR w/rfx to Quant TP Abson 02-23-2023 RPR, Rfx Quant RPR Non-Reactive Normal Non Reactive [facility] Comment on above: Result Comment: Perf ormed at: - [facility] [address] [place], [place] [id number] Director Private: Rashaad Trevino PhD, Phone: [phone] PERFORMED BY: [place] [address] PATHOLOGIST [employer] JAIN M.D. Performed By: #### R MS W RFX #### [facility] , Reagin Ab [Presence] in Seru m by RPROrdered By: DIANA SORENSON on 02-23-2023 Reagin Ab RPR Ql (S) Non-Reactive Non Reactive [facility] Comment on above: Performed at: - [facility] [address] [place] [id number] Director: Rashaad Trevino PhD, Phone: [phone] Specific gravity Auto test s trip (U) [Rel density]Ordered By: DIANA SORENSON on 02-23-2023 Specific gravity (U) [Rel density] 1.016 1.001-1.030 [facility] Squamous epithelial cells de tection in urine sediment by light microscopyOrdered By: DIANA SORENSON on 02-23-2023 Epithelial cells.squamous LM Ql (Urine sed) 10-19 [HPF] 0-2 [facility] Urine Cultureon 02-23-2023 Bacteria identified Cx Nom (U) <9,000 colonies/ml mixed bacterial skin contaminants 2 Days PERFORMED BY: [place] [address] PATHOLOGIST [employer] FL[employer] JAIN M.D. Normal [facility] Comment on above: Performed By: #### A DDONUAPLUS, CUU, OBUDS #### [address] Urine bacteria detection by automated methodOrdered By: DIANA SORENSON on 02-23-2023 Bacteria Auto Ql (U) 2+ None Seen [facility] Urine clarity by refractomet ry automatedOrdered By: DIANA SORENSON on 02-23-2023 Clarity Refractometry automated (U) Cloudy Clear [facility] Urine culture routineOrdered By: DIANA SORENSON on 02-23-2023 Bacteria identified Cx Nom (U) 2 Days [facility] Urine glucose measurement by automated test strip (mass/volume)Ordered By: DIANA SORENSON on 02-23-2023 Glucose Auto test strip (U) [Mass/Vol] Normal mg/dL Normal [facility] Urine hemoglobin detection b y automated test stripOrdered By: DIANA SORENSON on 02-23-2023 Hemoglobin Auto test strip Ql (U) Negative Negative [facility] Urine leukocyte esterase det ection by automated test stripOrdered By: DIANA SORENSON on 02-23-2023 Leukocyte esterase Auto test strip Ql (U) 2+ Negative [facility] Urobilinogen Auto test strip (U) [Mass/Vol]Ordered By: DIANA SORENSON on 02-23-2023 Urobilinogen (U) [Mass/Vol] Normal mg/dL Normal [facility] pH Auto test strip (U)Ordere d By: DIANA SORENSON on 02-23-2023 pH (U) 7.0 [pH] 5.0-9.0 [facility] Bacterial susceptibility wooten el EZEQUIEL (Isol)on 01-31-2023 Microorganism identified Cx Nom (Unsp spec) [id number] Abnormal [facility] Comment on above: Order Comment: Speci men Type: MICROBIAL ISOLATE Ordering Facility: [facility] Address: [address] [place] [address] Result Comment: Stre ptococcus agalactiae (group b streptococcus) Identification performed by client. Performed By: #### Hannah CRANE, [id number] #### [facility] CLIA [id number] [address] [place] [address] [place] MINIMUM INHIBITORY CONCENTRA TION (VIZION)on 01-31-2023 cefTRIAXone [Susc] 0.25 Susceptible Susceptib le <=0.5 , Nonsusceptible >.5 [facility] Comment on above: Order Comment: Order ing Facility: [facility] Address: [address] [place] [address] Performed By: #### Hannah CRANE, [id number] #### [facility] CLIA [id number] [address] [place] [address] [place] Clindamycin [Susc] <=0.12 Susceptible Susceptib le <=0.25 , Intermediate >.25 , Resistant >.5 [facility] Comment on above: Order Comment: Order ing Facility: [facility] Address: [address] [place], [place] [id number] Performed By: #### Hannah CRANE, 37461-9 #### [facility] CLIA [id number] [address] [place] [address] [place] Erythromycin [Susc] <=0.25 Susceptible Suscepti ble <=0.25 , Intermediate >.25 , Resistant >=1 [facility] Comment on above: Order Comment: Order ing Facility: [facility] Address: [address] [place] [address] Performed By: #### Hannah CRANE [id number] #### [facility] CLIA [id number] [address] [place] [address] Penicillin [Susc] 0.06 Susceptible Susceptibl e <=0.125 , Nonsusceptible >.125 [facility] Comment on above: Order Comment: Order ing Facility: [facility] Address: [address] [place] [address] Performed By: #### Hannah CRANE [id number] #### [facility] CLIA [id number] [address] [place] [address] Vancomycin [Susc] <=0.50 Susceptible Susceptibl e <=1 , Nonsusceptible >1 [facility] Comment on above: Order Comment: Order ing Facility: [facility] Address: [address] [place] [address] Performed By: #### Hannah CRANE [id number] #### [facility] CLIA [id number] [address] [place] [address] No Panel InformationOrdered By: DIANA SORENSON on 01-31-2023 Group B Streptococcus Culture Strep. agalactiae Grp B [facility] Strep B Culture (PCN Allergi c)on 01-31-2023 Strep B Culture (PCN Allergic) ORGANISM: Strep. agalactiae Grp B (O:B) Comments Sent to [facility] for Sensitivity Testing Please see scanned report located in the Laboratory/Scanned Reports section of the EMR. PERFORMED BY: [address] [place] [address] PATHOLOGIST [employer]ORY JAIN M.D. Normal [facility] Comment on above: Performed By: #### R MS W RFX #### [facility] , PREG ANATOMY SINGLEon US PREG ANATOMY SINGLE EXAMINATION: US P REG ANATOMY SINGLE HISTORY: screening COMPARISON: No relevant comparison available. TECHNIQUE: Transabdominal sonographic examination was performed for obstetrical and evaluation. FINDINGS: Number: 1 Heart Rate: 160.0 bpm H.B. /min Amniotic Fluid Volume: Subjectively normal Placental Location: Posterior with lower margin 3.5 cm from os. Cervix Length: 4.5 cm in length, closed. ANATOMY: Normal Structures -cerebellum, choroid plexus, cisterna magna, lateral cerebral ventricles, orbits, midline falx, hard palate, four-chamber heart, RVOT, LVOT, stomach, kidneys, bladder, umbilical cord insertion into abdomen, three-vessel cord, cervical spine, thoracic spine, lumbar spine, sacral spine, right upper extremity, left upper extremity, right lower extremity, left lower extremity. SUBOPTIMALLY SEEN: None ABNORMALITIES: None BIOMETRY: BPD: 4.9 cm , 21 weeks 0 days HC: 20.2 cm , 22 weeks 3 days AC: 16.6 cm , 21 weeks 5 days FL: 3.4 cm, 20 weeks 6 days EFW:417.8 grams; 72% by LMP; 33% by ultrasound FL/AC: 0.2 FL/BPD: 0.7 HC/AC: 1.2 GESTATIONAL AGE: Age by EDC: 20 weeks 6 days SERENE by EDC: 03/02/2023 Age by current US: 21 weeks 4 days SERENE by current US: 02/25/2023 IMPRESSION: 1. Single live intrauterine with growth detailed above. Electronically authenticated by: YOMAIRA SOSA Date: 2022-10-19 15:24 [address] [facility] AFP MATERNAL FOR SPINA BIFID Aon 10-07-2022 AFP MoM 1.[address] [facility] Comment on above: Performed By: #### A FPMAT #### [facility] [address] [address] [address] Calin Marshall AFP Value 45.3 ng/mL Normal [facility] Comment on above: Performed By: #### A FPMAT #### [facility] [address] [place], [place] [address] Dr. Calin Marshall AFP, Serum for Spina Bifida Report Normal [facility] Comment on above: Performed By: #### A FPMAT #### [facility] [address] [address] [address] Calin Marshall Comment Comment Normal [facility] Comment on above: Result Comment: Les Miller, Ph.D., [facility] Director . References: Available Upon Request. . Multiples Of Median Cutoffs For AFP Elevations Perry 2.5 Black 2.8 IDD 2.0 Twins 4.5 Abbreviation Definitions IDD - Insulin Dep Diabetes OSBR - Open Spina Bifida Risk . For further inquiries contact [facility] at [phone]. . This test was developed and its performance characteristics determined by [employer]. It has not been cleared or approved by the Food and Drug Administration. Performed By: #### A FPMAT #### [facility] [address] [address] [address] Calin Marshall Gest Age Collection Date 18.9 weeks Normal [facility] Comment on above: Performed By: #### A FPMAT #### [facility] [address] [address] [address] Calin Marshall Gestat, Age Based on Ultrasound Normal [facility] Comment on above: Result Comment: 8.6 on 07/25/2022 Recalculations are not recommended when gestational dating by LMP and ultrasound are within 10 days. Performed By: #### A FPMAT #### [facility] [address] [address] [address] Calin Marshall Insulin Dep Diabetes No Normal [facility] Comment on above: Performed By: #### A FPMAT #### [facility] [address] [address] [address] Calin Marshall Interpretation Comment Normal [facility] Comment on above: Result Comment: Inte rpretation: Screen Negative . This result is screen negative for OSB. The AFP MoM calculated is based on the gestational age provided. MS-AFP can identify up to 80% of open neural tube defects. Closed neural tube defects and some open defects may not be detected by this test. This test does not screen for Down Syndrome or Trisomy 18. If screening for Down Syndrome or Trisomy 18 is desired, contact [facility] to discuss available options. The [employer] recommends amniocentesis be offered to women age 35 and older. Performed By: #### A FPMAT #### [facility] [address] [place] [address] Dr. Calin Marshall Maternal Age at SERENE 27.[address] [facility] Comment on above: Performed By: #### A FPMAT #### [facility] [address] [place] [address] Dr. Calin Marshall Multiple Gestation No [facility] Comment on above: Performed By: #### A FPMAT #### [facility] [address] [place] [address] Dr. Calin Marshall OS[place] [address] [place] [id number] [facility] Comment on above: Performed By: #### A FPMAT #### [facility] [address] [place] [address] Dr. Calin Marshall PDF . [facility] Comment on above: Performed By: #### A FPMAT #### [facility] [address] [place] [address] Dr. Calin Marshall Race [facility] Comment on above: Performed By: #### A FPMAT #### [facility] [address] [place] [address] Dr. Calin Marshall Test Results: Negative [facility] Comment on above: Performed By: #### A FPMAT #### [facility] [address] [place] [address] Dr. Calin Marshall PAP ACOG PANEL 2: 21 to 29on 09-12-[address] [facility] Comment on above: Performed By: #### R UBIGG #### [facility] [address] [place] [address] Dr. Calin Marshall Age Gdln ACOG Testing - [facility] Comment on above: Performed By: #### R UBIGG #### [facility] [address] [place] [address] Dr. Calin Marshall DIAGNOSIS: Comment [facility] Comment on above: Result Comment: NEGA TIVE FOR INTRAEPITHELIAL LESION OR MALIGNANCY. Performed By: #### R UBIGG #### [facility] [address] [place] [address] Dr. Calin Marshall Methodology: Comment Normal [facility] Comment on above: Result Comment: This liquid based ThinPrep(R) pap test was screened with the use of an image guided system. Performed By: #### R UBIGG #### [facility] [address] [place] [address] Dr. Calin Marshall Note: Comment Normal [facility] Comment on above: Result Comment: The Pap smear is a screening test designed to aid in the detection of premalignant and malignant conditions of the uterine cervix. It is not a diagnostic procedure and should not be used as the sole means of detecting cervical cancer. Both false-positive and false-negative reports do occur. . Performed By: #### R UBIGG #### [facility] [address] [place] [address] Dr. Calin Marshall Performed by: Comment Normal [facility] Comment on above: Result Comment: Essence Salazar, Rn Urology (ASCP) Performed By: #### R UBIGG #### [facility] [address] [place] [address] Dr. Calin Marshall Reflex Criteria: Comment Normal [facility] Comment on above: Result Comment: The HPV DNA reflex criteria were not met with this specimen result therefore, no HPV testing was performed. . Performed By: #### R UBIGG #### [facility] [address] [place] [address] Dr. Calin Marshall Specimen adequacy: Comment Normal [facility] Comment on above: Result Comment: Sati sfactory for evaluation. No endocervical component is identified. Performed By: #### R UBIGG #### [facility] [address] [place] [address] Dr. Calin Marshall CHLAMYDIA/GONOCOCCUS RAUL (SW AB/URINE/PAPon 09-08-2022 Chlamydia trachomatis, RAUL Negative Normal Negative [facility] Comment on above: Performed By: #### C T/NGNA #### [facility] [address] [place] [address] Dr. Calin Marshall Neisseria gonorrhoeae, RAUL Negative Normal Negative [facility] Comment on above: Performed By: #### C T/NGNA #### [facility] [address] [place] [address] Dr. Calin Marshall HEP B SURFACE ANTIGEN SCREEN on 08-11-2022 HBsAg Screen Negative Normal Negative [facility] Comment on above: Performed By: #### C MP, LIPA #### [facility] [address] [place] [address] Dr. Calin Marshall HEPATITIS C VIRUS AB W/ REFL EX QUANTon 08-11-2022 HCV AB <0.1 Normal 0.0-0.9 [facility] Comment on above: Performed By: #### R UBIGG #### [facility] [address] [place] [address] Dr. Calin Marshall Interpretation: Comment Normal [facility] Comment on above: Result Comment: Nega tive Not infected with HCV, unless recent infection is suspected or other evidence exists to indicate HCV infection. Performed By: #### R UBIGG #### [facility] [address] [place] [address] Dr. Calin Marshall HIV 1 AND 2 WITH REFLEXon HIV Screen 4th Generation wRfx Non-Reactive Normal Non Reactive [facility] Comment on above: Result Comment: HIV Negative HIV-1/HIV-2 antibodies and HIV-1 p24 antigen were NOT detected. There is no laboratory evidence of HIV infection. Performed By: #### H IV12 #### [facility] [address] [place] [address] Dr. Calin Marshall RPR QUANTon 08-11-2022 Rapid Plasma Reagin, Quant Non-Reactive Normal NonRea<1:[address] [facility] Comment on above: Result Comment: Plea se Note: This test does not meet current guidelines for screening and diagnosis of syphilis. This test is intended for following treatment response in patients being treated for syphilis infection. To screen for syphilis infection, a reflex cascade that includes both RPR and a treponema-specific assay should be utilized, such as Treponema pallidum (Syphilis) Screening [place] (720356) or Rapid Plasma Reagin (RPR) Test With Reflex to Quantitative RPR and Confirmatory Treponema pallidum Antibodies (001560). Performed By: #### R PRQ #### [facility] [address] [place] [address] Dr. Calin Marshall RUBELLA AB IGGon 08-11-2022 Rubella Antibodies, IgG 12.10 index Normal Immune >0.99 [facility] Comment on above: Result Comment: Non- immune <0.90 Equivocal 0.90 - 0.99 Immune >0.99 Performed By: #### R UBIGG #### [facility] [address] [place] [address] Dr. Calin Marshall CBC AUTO DIFFon 08-10-2022 BASO # 0.0 103/ul Normal 0.0-0.1 [facility] Comment on above: Performed By: #### R UBIGG #### [facility] [address] [place] [address] Dr. Calin Marshall Basophils/100 WBC (Bld) 0.4 % Normal 0.2-2.0 [facility] Comment on above: Performed By: #### R UBIGG #### [facility] [address] [place] [address] Dr. Calin Marshall EO # 0.1 103/ul Normal 0.0-0.7 [facility] Comment on above: Performed By: #### R UBIGG #### [facility] [address] [place] [address] Dr. Calin Marshall Eosinophils/100 WBC (Bld) 0.7 % Critically low 0.9-7.0 [facility] Comment on above: Performed By: #### R UBIGG #### [facility] [address] [place] [address] Dr. Calin Marshall Erythrocyte distribution width (RBC) [Ratio] 12.6 % Normal 11.0-15.0 [facility] Comment on above: Performed By: #### R UBIGG #### [facility] [address] [place] [address] Dr. Calin Marshall Hematocrit (Bld) [Volume fraction] 37.6 % Normal 36.0-48.0 [facility] Comment on above: Performed By: #### R UBIGG #### [facility] [address] [place] [address] Dr. Calin Marshall Hemoglobin (Bld) [Mass/Vol] 12.5 g/dL Normal 12.0-16.0 [facility] Comment on above: Performed By: #### R UBIGG #### [facility] [address] [place] [address] Dr. Calin Marshall IG # 0.03 10e3/ul Normal 0.00-0.03 [facility] Comment on above: Performed By: #### R UBIGG #### [facility] [address] [place] [address] Dr. Calin Marshall IG % 0.3 % Normal 0.0-0.5 [facility] Comment on above: Performed By: #### R UBIGG #### [facility] [address] [place] [address] Dr. Calin Marshall LYMPH # 2.5 103/ul Normal 1.2-3.8 [facility] Comment on above: Performed By: #### R UBIGG #### [facility] [address] [place] [address] Dr. Calin Marshall Lymphocytes/100 WBC (Bld) 22.3 % Normal 20.5-60.0 [facility] Comment on above: Performed By: #### R UBIGG #### [facility] [address] [place] [address] Dr. Calin Marshall MANUAL DIFF REQ NO Normal [facility] Comment on above: Performed By: #### R UBIGG #### [facility] [address] [place] [address] Dr. Calin Marshall MCH (RBC) [Entitic mass] 29.8 pg Normal 26.7-34.0 [facility] Comment on above: Performed By: #### R UBIGG #### [facility] [address] [place] [address] Dr. Calin Marshall MCHC (RBC) [Mass/Vol] 33.2 g/dL Normal 29.9-35.[address] [facility] Comment on above: Performed By: #### R UBIGG #### [facility] [address] [place] [address] Dr. Calin Marshall MCV (RBC) [Entitic vol] 89.5 fL Normal 81.0-99.[address] [facility] Comment on above: Performed By: #### R UBIGG #### [facility] [address] [place] [address] Dr. Calin Marshall MONO # 0.5 103/ul Normal 0.3-0.[address] [facility] Comment on above: Performed By: #### R UBIGG #### [facility] [address] [place] [address] Dr. Calin Marshall Monocytes/100 WBC (Bld) 4.3 % Normal 1.7-12.0 [facility] Comment on above: Performed By: #### R UBIGG #### [facility] [address] [place] [address] Dr. Calin Marshall NEUT # 8.0 103/ul Critically high 1.4-6.5 [facility] Comment on above: Performed By: #### R UBIGG #### [facility] [address] [place] [address] Dr. Calin Marshall Neutrophils/100 WBC (Bld) 72.0 % Normal 43.0-75.0 [facility] Comment on above: Performed By: #### R UBIGG #### [facility] [address] [place] [address] Dr. Calin Marshall Platelet mean volume (Bld) [Entitic vol] 10.2 fL Normal 9.5-13.[address] [facility] Comment on above: Performed By: #### R UBIGG #### [facility] [address] [place] [address] Dr. Calin Marshall PLT 362 103/ul Normal 150-[address] [facility] Comment on above: Performed By: #### R UBIGG #### [facility] [address] [place] [address] Dr. Calin Marshall RBC 4.20 106/ul Normal 4.20-5.40 [facility] Comment on above: Performed By: #### R UBIGG #### [facility] [address] [place] [address] Dr. Calin Marshall WBC 11.0 103/ul Normal 4.0-11.0 [facility] Comment on above: Performed By: #### R UBIGG #### [facility] [address] [place] [address] Dr. Calin Marshall CULTURE URINEon 08-10-2022 CULTURE URINE Culture Observations : LIGHT GROWTH OF MIXED GENITAL MARIO. NO POTENTIAL PATHOGENS SEEN. Normal [facility] Comment on above: Performed By: #### R UBIGG #### [facility] [address] [place] [address] Dr. Calin Marshall DRUG SCREEN RAPID (URINE)on 08-10-2022 AMP Negative Normal NEGATIVE [facility] Comment on above: Performed By: #### D RUGRPD #### [facility] [address] [place] [address] Dr. Calin Marshall BAR Negative Normal NEGATIVE [facility] Comment on above: Performed By: #### D RUGRPD #### [facility] [address] [place] [address] Dr. Calin Marshall BUP Negative Normal NEGATIVE [facility] Comment on above: Performed By: #### D RUGRPD #### [facility] [address] [place] [address] Dr. Calin Marshall BZO Negative Normal NEGATIVE [facility] Comment on above: Performed By: #### D RUGRPD #### [facility] [address] [place] [address] Dr. Calin Marshall ROSARIO Negative Normal NEGATIVE [facility] Comment on above: Performed By: #### D RUGRPD #### [facility] [address] [place] [address] Dr. Calni Marshall CUT-OFFS SEE BELOW Normal [facility] Comment on above: Result Comment: AMP (Amphetamine): 500ng/mL, BAR (Barbituates): 200 ng/mL, BZO (Benzodiazepines): 150 ng/mL, BUP (Buprenorphine): 10 ng/mL, ROSARIO (Cocaine): 150 ng/mL, mAMP (Methamphetamine): 500 ng/mL, MTD (Methadone): 200 ng/mL, OPI (Opiates): 100 ng/mL, OXY (Oxycodone): 100 ng/mL, PCP (Phencyclidine): 25 ng/mL, PPX (Propoxyphene): 300 ng/mL, THC (Cannabinoids): 50 ng/mL, TCA (Trycyclic Antidepressants): 300 ng/mL Performed By: #### D RUGRPD #### [facility] [address] [place] [address] Dr. Calin Marshall DRUG CUT HEADER DRUG CLASS TEST SYST EM CUT-OFF CONCENTRATIONS ARE FOLLOWS: Normal [facility] Comment on above: Performed By: #### D RUGRPD #### [facility] [address] [place] [address] Dr. Calin Marshall mAMP Negative Normal NEGATIVE [facility] Comment on above: Performed By: #### D RUGRPD #### [facility] [address] [place] [address] Dr. Calin Marshall MTD Negative Normal NEGATIVE [facility] Comment on above: Performed By: #### D RUGRPD #### [facility] [address] [place] [address] Dr. Calin Marshall OPI Negative Normal NEGATIVE [facility] Comment on above: Performed By: #### D RUGRPD #### [facility] [address] [place] [address] Dr. Calin Marshall OXY Negative Normal NEGATIVE [facility] Comment on above: Performed By: #### D RUGRPD #### [facility] [address] [place] [address] Dr. Calin Marshall PCP Negative Normal NEGATIVE [facility] Comment on above: Performed By: #### D RUGRPD #### [facility] [address] [place] [address] Dr. Calin Marshall PPX Negative Normal NEGATIVE [facility] Comment on above: Performed By: #### D RUGRPD #### [facility] [address] [address] [address] Calin Marshall TCA Positive Abnormal NEGATIVE [facility] Comment on above: Performed By: #### D RUGRPD #### [facility] [address] [address] [address] Calin Marshall THC Positive Abnormal NEGATIVE [facility] Comment on above: Performed By: #### D RUGRPD #### [facility] [address] [place] [address] Dr. Calin Marshall GLYCOHEMOGLOBIN A1Con 2022 ADA RECOMMENDATION SEE BELOW Normal [facility] Comment on above: Result Comment: ADA RECOMMENDED LIMIT 4.0 - 6.0 ADA THERAPEUTIC TARGET < 7.0 ACTION SUGGESTED > 7.0 Performed By: #### C YULIANA, LIPA #### [facility] [address] [place] [address] Dr. Calin Marshall Glucose [Mass/Vol] 97 mg/dL Normal [facility] Comment on above: Performed By: #### C YULIANA, LIPA #### [facility] [address] [place] [address] Dr. Calin Marshall HbA1c (Bld) [Mass fraction] 5.0 % Normal 4.5-6.2 [facility] Comment on above: Performed By: #### C YULIANA, LIPA #### [facility] [address] [place] [address] Dr. Calin Marshall CHON BOX TEST PT SEND OUTo n 08-10-2022 SENT TO REF LAB 08/10/2022 Normal [facility] Comment on above: Performed By: #### R UBIGG #### [facility] [address] [place] [address] Dr. Calin Marshall TYPE AND SCREENon 08-10-2022 TYPE AND SCREEN Negative Normal [facility] Comment on above: Performed By: #### R UBIGG #### [facility] [address] [place] [address] Dr. Calin Marshall US PREG TVon 07-26-2022 US PREG TV EXAMINATION: US PREG TV HISTORY: Missed period COMPARISON: No relevant comparison available. FINDINGS: Transvaginal images Perry intrauterine gestation Gestational sac: Normal morphology Yolk sac: 5.2 mm CRL: 1.93 cm, 8 weeks 4 days Heart rate: 170 bpm The cervix is closed measuring 4.6 cm in length The uterus is normal, anteverted, anteflexed The ovaries are normal Clinical age: 10 weeks 2 days Clinical SERENE: 02/18/2023 Ultrasound age: 8 weeks 4 days Ultrasound SERENE: 03/02/2023 IMPRESSION: Viable perry intrauterine gestation measuring 8 weeks 4 days Electronically authenticated by: CALDERON OLSON Date: 2022-07-26 07:08 [address] [facility] CBC AUTO DIFFon 07-12-2022 BASO # 0.1 103/ul Normal 0.0-0.[address] [facility] Comment on above: Performed By: #### R UBIGG #### [facility] [address] [place] [address] Dr. Calin Marshall Basophils/100 WBC (Bld) 0.3 % Normal 0.2-2.0 [facility] Comment on above: Performed By: #### R UBIGG #### [facility] [address] [place] [address] Dr. Calin Marshall EO # 0.0 103/ul Normal 0.0-0.[address] [facility] Comment on above: Performed By: #### R UBIGG #### [facility] [address] [place] [address] Dr. Calin Marshall Eosinophils/100 WBC (Bld) 0.2 % Critically low 0.9-7.0 [facility] Comment on above: Performed By: #### R UBIGG #### [facility] [address] [place] [address] Dr. Calin Marshall Erythrocyte distribution width (RBC) [Ratio] 11.9 % Normal 11.0-15.[address] [facility] Comment on above: Performed By: #### R UBIGG #### [facility] [address] [place] [address] Dr. Calin Marshall Hematocrit (Bld) [Volume fraction] 40.8 % Normal 36.0-48.[address] [facility] Comment on above: Performed By: #### R UBIGG #### [facility] [address] [address] [address] Calin Marshall Hemoglobin (Bld) [Mass/Vol] 14.4 g/dL Normal 12.0-16.[address] [facility] Comment on above: Performed By: #### R UBIGG #### [facility] [address] [place] [address] Dr. Calin Marshall IG # 0.06 10e3/ul Critically high 0.00-0.03 [facility] Comment on above: Performed By: #### R UBIGG #### [facility] [address] [place] [address] Dr. Calin Marshall IG % 0.3 % Normal 0.0-0.[address] [facility] Comment on above: Performed By: #### R UBIGG #### [facility] [address] [place] [address] Dr. Calin Marshall LYMPH # 3.4 103/ul Normal 1.2-3.[address] [facility] Comment on above: Performed By: #### R UBIGG #### [facility] [address] [place] [address] Dr. Calin Marshall Lymphocytes/100 WBC (Bld) 18.6 % Critically low 20.5-60.0 [facility] Comment on above: Performed By: #### R UBIGG #### [facility] [address] [place] [address] Dr. Calin Marshall MANUAL DIFF REQ NO Normal [facility] Comment on above: Performed By: #### R UBIGG #### [facility] [address] [place] [address] Dr. Calin Marshall MCH (RBC) [Entitic mass] 30.3 pg Normal 26.7-34.[address] [facility] Comment on above: Performed By: #### R UBIGG #### [facility] [address] [place] [address] Dr. Calin Marshall MCHC (RBC) [Mass/Vol] 35.3 g/dL Critically high 29.9-35.[address] [facility] Comment on above: Performed By: #### R UBIGG #### [facility] [address] [address] [address] Calin Marshall MCV (RBC) [Entitic vol] 85.7 fL Normal 81.0-99.0 [facility] Comment on above: Performed By: #### R UBIGG #### [facility] [address] [place] [address] Dr. Calin Marshall MONO # 0.9 103/ul Critically high 0.3-0.8 [facility] Comment on above: Performed By: #### R UBIGG #### [facility] [facility] [address] [place] [address] Dr. Calin Marshall Monocytes/100 WBC (Bld) 4.9 % Normal 1.7-12.0 [facility] Comment on above: Performed By: #### R UBIGG #### [facility] [address] [place] [address] Dr. Calin Marshall NEUT # 13.8 103/ul Critically high 1.4-6.5 [facility] Comment on above: Performed By: #### R UBIGG #### [facility] [address] [place] [address] Dr. Calin Marshall Neutrophils/100 WBC (Bld) 75.7 % Critically high 43.0-75.0 [facility] Comment on above: Performed By: #### R UBIGG #### [facility] [address] [place] [address] Dr. Calin Marshall Platelet mean volume (Bld) [Entitic vol] 9.5 fL Normal 9.5-13.[address] [facility] Comment on above: Performed By: #### R UBIGG #### [facility] [address] [place] [address] Dr. Calin Marshall PLT 427 103/ul Normal 150-[address] [facility] Comment on above: Performed By: #### R UBIGG #### [facility] [address] [place] [address] Dr. Calin Marshall RBC 4.76 106/ul Normal 4.20-5.[address] [facility] Comment on above: Performed By: #### R UBIGG #### [facility] [address] [place] [address] Dr. Calin Marshall WBC 18.2 103/ul Critically high 4.0-11.0 [facility] Comment on above: Performed By: #### R UBIGG #### [facility] [address] [place] [address] Dr. Calin SHIPMAN URINE PROFILEon 3 Bilirubin Ql (U) Negative Normal NEGATIVE [facility] Comment on above: Performed By: #### C MP, LIPA #### [facility] [address] [place] [address] Dr. Calin Marshall Clarity (U) CLEAR Normal CLEAR [facility] Comment on above: Performed By: #### C MP, LIPA #### [facility] [address] [place] [address] Dr. Calin Marshall Color (U) YELLOW Normal YELLOW [facility] Comment on above: Performed By: #### C MP, LIPA #### [facility] [address] [place] [address] Dr. Calin HANDY A micrscopic examination will be performed if indicated. Normal [facility] Comment on above: Performed By: #### C MP, LIPA #### [facility] [address] [place] [address] Dr. Calin Marshall Glucose Ql (U) Negative Normal NEGATIVE [facility] Comment on above: Performed By: #### C MP, LIPA #### [facility] [address] [place] [address] Dr. Calin Marshall Hemoglobin Ql (U) SMALL Abnormal NEGATIVE [facility] Comment on above: Performed By: #### C MP, LIPA #### [facility] [address] [place] [address] Dr. Calin Marshall Ketones Ql (U) >=80 Abnormal NEGATIVE [facility] Comment on above: Performed By: #### C MP, LIPA #### [facility] [address] [place] [address] Dr. Calin Marshall LEUKOCYTES Negative Normal NEGATIVE [facility] Comment on above: Performed By: #### C MP, LIPA #### [facility] [address] [place] [address] Dr. Calin Marshall Nitrite Ql (U) Negative Normal NEGATIVE [facility] Comment on above: Performed By: #### C MP, LIPA #### [facility] [address] [place] [address] Dr. Calin Marshall pH (U) 6.0 [pH] Normal 5-9 [facility] Comment on above: Performed By: #### C MP, LIPA #### [facility] [address] [place] [address] Dr. Calin Marshall Protein (U) [Mass/Vol] 30 mg/dL Abnormal NEGATIVE/ TRA CE [facility] Comment on above: Performed By: #### C MP, LIPA #### [facility] [address] [place] [address] Dr. Calin Marshall SPEC GRAVITY >=1.030 Abnormal 1.005-<=1.025 [facility] Comment on above: Performed By: #### C MP, LIPA #### [facility] [address] [place] [address] Dr. Calin Marshall UR MICRO IND INDICATED Normal [facility] Comment on above: Performed By: #### C MP, LIPA #### [facility] [address] [place] [address] Dr. Calin Marshall Urobilinogen Qn (U) 0.2 {Bridger'U}/dL Normal 0.2 - 1. 0 [facility] Comment on above: Performed By: #### C MP, LIPA #### [facility] [address] [place] [address] Dr. Calin Marshall LIPASEon 07-12-2022 Lipase [Catalytic activity/Vol] 186.0 U/L Normal 73.0-393.0 [facility] Comment on above: Performed By: #### C MP, LIPA #### [facility] [address] [place] [address] Dr. Calin Marshall PROF 14(COMP METB)on 023 Albumin [Mass/Vol] 4.6 g/dL Normal 3.4-5.0 [facility] Comment on above: Performed By: #### C MP, LIPA #### [facility] [address] [place] [address] Dr. Calin Marshall Albumin/Globulin [Mass ratio] 1.0 {ratio} Normal [facility] Comment on above: Performed By: #### C MP, LIPA #### [facility] [address] [place] [address] Dr. Calin Marshall ALP [Catalytic activity/Vol] 100 U/L Normal 46-116 [facility] Comment on above: Performed By: #### C MP, LIPA #### [facility] [address] [place] [address] Dr. Calin Marshall ALT [Catalytic activity/Vol] 25 U/L Normal 14-59 [facility] Comment on above: Performed By: #### C MP, LIPA #### [facility] [address] [place] [address] Dr. Calin Marshall Anion gap [Moles/Vol] 18.6 mmol/L Normal [facility] Comment on above: Performed By: #### C MP, LIPA #### [facility] [address] [place] [address] Dr. Calin Marshall AST [Catalytic activity/Vol] 15 U/L Normal 15-37 [facility] Comment on above: Performed By: #### C MP, LIPA #### [facility] [address] [place] [address] Dr. Calin Marshall Bilirubin [Mass/Vol] 0.5 mg/dL Normal 0.2-1.0 [facility] Comment on above: Performed By: #### C MP, LIPA #### [facility] [address] [place] [address] Dr. Calin Marshall Calcium [Mass/Vol] 10.8 mg/dL Critically high 8.5-10.1 [facility] Comment on above: Performed By: #### C MP, LIPA #### [facility] [address] [place] [address] Dr. Calin Marshall Chloride [Moles/Vol] 95 mmol/L Critically low 98-[address] [facility] Comment on above: Performed By: #### C MP, LIPA #### [facility] [address] [place] [address] Dr. Calin Masrhall CO2 [Moles/Vol] 22.8 mmol/L Normal 21.0-32.0 [facility] Comment on above: Performed By: #### C MP, LIPA #### [facility] [address] [place] [address] Dr. Calin Marshall Creatinine [Mass/Vol] 0.86 mg/dL Normal 0.55-1.[address] [facility] Comment on above: Performed By: #### C MP, LIPA #### [facility] [address] [place] [address] Dr. Calin Marshall EGFR-AF SAMMARINESE >60 Normal >=60 [facility] Comment on above: Performed By: #### C MP, LIPA #### [facility] [address] [place] [address] Dr. Calin Marshall EGFR-NON AF SAMMARINESE >60 Normal >=60 [facility] Comment on above: Performed By: #### C MP, LIPA #### [facility] [address] [place] [address] Dr. Calin Marshall Globulin (S) [Mass/Vol] 4.6 g/dL Normal [facility] Comment on above: Performed By: #### C MP, LIPA #### [facility] [address] [place] [address] Dr. Calin Marshall Glucose [Mass/Vol] 79 mg/dL Normal 74-[address] [facility] Comment on above: Performed By: #### C MP, LIPA #### [facility] [address] [place] [address] Dr. Calin Marshall Potassium [Moles/Vol] 3.4 mmol/L Critically low 3.5-5.[address] [facility] Comment on above: Performed By: #### C MP, LIPA #### [facility] [address] [place] [address] Dr. Calin Marshall Protein [Mass/Vol] 9.2 g/dL Critically high 6.4-8.2 T [facility] Comment on above: Performed By: #### C MP, LIPA #### [facility] [address] [place] [address] Dr. Calin Marshall Sodium [Moles/Vol] 133 mmol/L Critically low 136-[address] [facility] Comment on above: Performed By: #### C MP, LIPA #### [facility] [address] [place] [address] Dr. Calin Marshall Urea nitrogen [Mass/Vol] 10.0 mg/dL Normal 7.0-18.0 [facility] Comment on above: Performed By: #### C MP, LIPA #### [facility] [address] [place] [address] Dr. Calin Marshall Urea nitrogen/Creatinine [Mass ratio] 11.6 mg/mg Normal [facility] Comment on above: Performed By: #### C MP, LIPA #### [facility] [address] [place] [address] Dr. Calin Marshall URINE MICROSCOPIC ONLYon BACTERIA TRACE Abnormal NONE SEEN [facility] Comment on above: Performed By: #### C YULIANA, LIPA #### [facility] [address] [place] [address] Dr. Calin Marshall Bacteria identified Cx Nom (U) NOT INDICATED Normal [facility] Comment on above: Performed By: #### C YULIANA, LIPA #### [facility] [address] [place] [address] Dr. Calin Marshall CAST NONE SEEN Normal NONE SEEN [facility] Comment on above: Performed By: #### C MP, LIPA #### [facility] [address] [place] [address] Dr. Calin Marshall Crystals LM Nom (Urine sed) NONE SEEN Normal NONE SEEN [facility] Comment on above: Performed By: #### C MP, LIPA #### [facility] [address] [place] [address] Dr. Calin Marshall Epithelial cells LM Ql (Urine sed) RARE Normal NONE SEEN /RARE [facility] Comment on above: Performed By: #### C MP, LIPA #### [facility] [address] [place] [address] Dr. Calin Marshall MUCOUS NONE SEEN Normal NONE SEEN [facility] Comment on above: Performed By: #### C MP, LIPA #### [facility] [address] [place] [address] Dr. Calin Marshall RBC 0-2 Normal 0-[address] [facility] Comment on above: Performed By: #### C MP, LIPA #### [facility] [address] [place] [address] Dr. Calin Marshall WBC NONE SEEN Normal NONE SEEN [facility] Comment on above: Performed By: #### C MP, LIPA #### [facility] [address] [place] [address] Dr. Calin Marshall CBC AUTO DIFFon 07-08-2022 BASO # 0.1 103/ul Normal 0.0-0.1 [facility] Comment on above: Performed By: #### C MP, LIPA #### [facility] [address] [place] [address] Dr. Calin Marshall Basophils/100 WBC (Bld) 0.4 % Normal 0.2-2.0 [facility] Comment on above: Performed By: #### C MP, LIPA #### [facility] [address] [place] [address] Dr. Calin Marshall EO # 0.1 103/ul Normal 0.0-0.[address] [facility] Comment on above: Performed By: #### C MP, LIPA #### [facility] [address] [place] [address] Dr. Calin Marshall Eosinophils/100 WBC (Bld) 0.3 % Critically low 0.9-7.[address] [facility] Comment on above: Performed By: #### C MP, LIPA #### [facility] [address] [place] [address] Dr. Calin Marshall Erythrocyte distribution width (RBC) [Ratio] 12.0 % Normal 11.0-15.0 [facility] Comment on above: Performed By: #### C MP, LIPA #### [facility] [address] [place] [address] Dr. Calin Marshall Hematocrit (Bld) [Volume fraction] 40.3 % Normal 36.0-48.0 [facility] Comment on above: Performed By: #### C MP, LIPA #### [facility] [address] [place] [address] Dr. Calin Marshall Hemoglobin (Bld) [Mass/Vol] 14.3 g/dL Normal 12.0-16.0 [facility] Comment on above: Performed By: #### C MP, LIPA #### [facility] [address] [place] [address] Dr. Calin Marshall IG # 0.05 10e3/ul Critically high 0.00-0.03 [facility] Comment on above: Performed By: #### C MP, LIPA #### [facility] [address] [place] [address] Dr. Calin Marshall IG % 0.3 % Normal 0.0-0.5 [facility] Comment on above: Performed By: #### C MP, LIPA #### [facility] [address] [place] [address] Dr. Calin Marshall LYMPH # 3.5 103/ul Normal 1.2-3.8 [facility] Comment on above: Performed By: #### C MP, LIPA #### [facility] [address] [place] [address] Dr. Calin Marshall Lymphocytes/100 WBC (Bld) 20.3 % Critically low 20.5-60.0 [facility] Comment on above: Performed By: #### C MP, LIPA #### [facility] [address] [place] [address] Dr. Calin Marshall MANUAL DIFF REQ NO Normal [facility] Comment on above: Performed By: #### C MP, LIPA #### [facility] [address] [place] [address] Dr. Calin Marshall MCH (RBC) [Entitic mass] 30.5 pg Normal 26.7-34.0 [facility] Comment on above: Performed By: #### C MP, LIPA #### [facility] [address] [place] [address] Dr. Calin Marshall MCHC (RBC) [Mass/Vol] 35.5 g/dL Critically high 29.9-35.[address] [facility] Comment on above: Performed By: #### C MP, LIPA #### [facility] [address] [place] [address] Dr. Calin Marshall MCV (RBC) [Entitic vol] 85.9 fL Normal 81.0-99.[address] [facility] Comment on above: Performed By: #### C MP, LIPA #### [facility] [address] [place] [address] Dr. Calin Marshall MONO # 0.8 103/ul Normal 0.3-0.[address] [facility] Comment on above: Performed By: #### C MP, LIPA #### [facility] [address] [place] [address] Dr. Calin Marshall Monocytes/100 WBC (Bld) 4.6 % Normal 1.7-12.[address] [facility] Comment on above: Performed By: #### C MP, LIPA #### [facility] [address] [place] [address] Dr. Calin Marshall NEUT # 12.8 103/ul Critically high 1.4-6.5 [facility] Comment on above: Performed By: #### C MP, LIPA #### [facility] [address] [place] [address] Dr. Calin Marshall Neutrophils/100 WBC (Bld) 74.1 % Normal 43.0-75.[address] [facility] Comment on above: Performed By: #### C MP, LIPA #### [facility] [address] [place] [address] Dr. Calin Marshall Platelet mean volume (Bld) [Entitic vol] 9.6 fL Normal 9.5-13.5 [facility] Comment on above: Performed By: #### C MP, LIPA #### [facility] [address] [place] [address] Dr. Calin Marshall PLT 415 103/ul Normal 150-[address] [facility] Comment on above: Performed By: #### C YULIANA, LIPA #### [facility] [address] [place] [address] Dr. Calin Marshall RBC 4.69 106/ul Normal 4.20-5.40 [facility] Comment on above: Performed By: #### C YULIANA, LIPA #### [facility] [address] [place] [address] Dr. Calin Marshall WBC 17.3 103/ul Critically high 4.0-11.0 [facility] Comment on above: Performed By: #### C YULIANA, LIPA #### [facility] [address] [place] [address] Dr. Calin Marshall CULTURE URINEon 07-08-2022 CULTURE URINE Culture Observations : MODERATE GROWTH OF MIXED GENITAL MARIO. NO POTENTIAL PATHOGENS SEEN. Normal [facility] Comment on above: Performed By: #### R UBIGG #### [facility] [address] [place] [address] Dr. Calin Marshall ER URINE PROFILEon Bilirubin Ql (U) Negative Normal NEGATIVE [facility] Comment on above: Performed By: #### ELDA ZHOURO #### [facility] [address] [place] [address] Dr. Calin Marshall Clarity (U) CLEAR Normal CLEAR [facility] Comment on above: Performed By: #### ELDA ZHOURO #### [facility] [address] [place] [address] Dr. Calin Marshall Color (U) LT. YELLOW Normal YELLOW [facility] Comment on above: Performed By: #### ELDA ZHOURO #### [facility] [address] [place] [address] Dr. Calin Marshall ERUAHJosh A micrscopic examination will be performed if indicated. Normal [facility] Comment on above: Performed By: #### Ivan FRAUSTO UMICRO #### [facility] [address] [place] [address] Dr. Calin Marshall Glucose Ql (U) Negative Normal NEGATIVE [facility] Comment on above: Performed By: #### Ivan FRAUSTO UMICRO #### [facility] [address] [place] [address] Dr. Calin Marshall Hemoglobin Ql (U) SMALL Abnormal NEGATIVE [facility] Comment on above: Performed By: #### E LISBET, UMICRO #### [facility] [address] [place] [address] Dr. Calin Marshall Ketones Ql (U) 15 mg/dl Abnormal NEGATIVE [facility] Comment on above: Performed By: #### Ivan FRAUSTO UMICRO #### [facility] [address] [place] [address] Dr. Calin Marshall LEUKOCYTES Negative Normal NEGATIVE [facility] Comment on above: Performed By: #### Ivan FRAUSTO UMICRO #### [facility] [address] [place] [address] Dr. Calin Marshall Nitrite Ql (U) Negative Normal NEGATIVE [facility] Comment on above: Performed By: #### Ivan FRAUSTO UMICRO #### [facility] [address] [place] [address] Dr. Calin Marshall pH (U) 6.0 [pH] Normal 5-9 [facility] Comment on above: Performed By: #### Ivan FRAUSTO UMICRO #### [facility] [address] [place] [address] Dr. Calin Marshall SPEC GRAVITY <=1.005 Abnormal 1.005-<=1.025 [facility] Comment on above: Performed By: #### Ivan FRAUSTO UMICRO #### [facility] [address] [place] [address] Dr. Calin Marshall UA PROTEIN Negative Normal NEGATIVE/ TRACE [facility] Comment on above: Performed By: #### Ivan FRAUSTO UMICRO #### [facility] [address] [place] [address] Dr. Calin Marshall UR MICRO IND INDICATED Normal [facility] Comment on above: Performed By: #### Ivan FRAUSTO UMICRO #### [facility] [address] [place] [address] Dr. Calin Marshall Urobilinogen Qn (U) 0.2 {Bridger'U}/dL Normal 0.2 - 1. 0 [facility] Comment on above: Performed By: #### E KENNA FRAUSTO #### [facility] [address] [place] [address] Dr. Calin Marshall PROF 14(COMP METB)on 022 Albumin [Mass/Vol] 4.4 g/dL Normal 3.4-5.0 [facility] Comment on above: Performed By: #### C MP, LIPA #### [facility] [address] [place] [address] Dr. Calin Marshall Albumin/Globulin [Mass ratio] 1.0 {ratio} Normal [facility] Comment on above: Performed By: #### C MP, LIPA #### [facility] [address] [place] [address] Dr. Calin Marshall ALP [Catalytic activity/Vol] 93 U/L Normal 46-116 [facility] Comment on above: Performed By: #### C MP, LIPA #### [facility] [address] [place] [address] Dr. Calin Marshall ALT [Catalytic activity/Vol] 34 U/L Normal 14-59 [facility] Comment on above: Performed By: #### C MP, LIPA #### [facility] [address] [place] [address] Dr. Calin Marshall Anion gap [Moles/Vol] 17.3 mmol/L Normal [facility] Comment on above: Performed By: #### C MP, LIPA #### [facility] [address] [place] [address] Dr. Calin Marshall AST [Catalytic activity/Vol] 21 U/L Normal 15-37 [facility] Comment on above: Performed By: #### C MP, LIPA #### [facility] [address] [place] [address] Dr. Calin Marshall Bilirubin [Mass/Vol] 0.6 mg/dL Normal 0.2-1.0 [facility] Comment on above: Performed By: #### C MP, LIPA #### [facility] [address] [place] [address] Dr. Calin Marshall Calcium [Mass/Vol] 10.7 mg/dL Critically high 8.5-10.1 [facility] Comment on above: Performed By: #### C MP, LIPA #### [facility] [address] [place] [address] Dr. Calin Marshall Chloride [Moles/Vol] 96 mmol/L Critically low 98-107 [facility] Comment on above: Performed By: #### C MP, LIPA #### [facility] [address] [place] [address] Dr. Calin Marshall CO2 [Moles/Vol] 23.1 mmol/L Normal 21.0-32.0 [facility] Comment on above: Performed By: #### C MP, LIPA #### [facility] [address] [place] [address] Dr. Calin Marshall Creatinine [Mass/Vol] 0.83 mg/dL Normal 0.55-1.02 [facility] Comment on above: Performed By: #### C MP, LIPA #### [facility] [address] [place] [address] Dr. Calin Marshall EGFR-AF SAMMARINESE >60 Normal >=60 [facility] Comment on above: Performed By: #### C MP, LIPA #### [facility] [address] [place] [address] Dr. Calin Marshall EGFR-NON AF SAMMARINESE >60 Normal >=60 [facility] Comment on above: Performed By: #### C MP, LIPA #### [facility] [address] [place] [address] Dr. Calin Marshall Globulin (S) [Mass/Vol] 4.4 g/dL Normal [facility] Comment on above: Performed By: #### C MP, LIPA #### [facility] [address] [place] [address] Dr. Calin Marshall Glucose [Mass/Vol] 98 mg/dL Normal 74-106 [facility] Comment on above: Performed By: #### C MP, LIPA #### [facility] [address] [place] [address] Dr. Calin Marshall Potassium [Moles/Vol] 3.4 mmol/L Critically low 3.5-5.1 [facility] Comment on above: Performed By: #### C MP, LIPA #### [facility] [address] [place] [address] Dr. Calin Marshall Protein [Mass/Vol] 8.8 g/dL Critically high 6.4-8.2 T [facility] Comment on above: Performed By: #### C MP, LIPA #### [facility] [address] [place] [address] Dr. Calin Marshall Sodium [Moles/Vol] 133 mmol/L Critically low 136-145 [facility] Comment on above: Performed By: #### C MP, LIPA #### [facility] [address] [place] [address] Dr. Calin Marshall Urea nitrogen [Mass/Vol] 8.0 mg/dL Normal 7.0-18.0 [facility] Comment on above: Performed By: #### C MP, LIPA #### [facility] [address] [place] [address] Dr. Calin Marshall Urea nitrogen/Creatinine [Mass ratio] 9.6 mg/mg Normal [facility] Comment on above: Performed By: #### C MP, LIPA #### [facility] [address] [place] [address] Dr. Calin Marshall URINE MICROSCOPIC ONLYon BACTERIA SMALL Abnormal NONE SEEN [facility] Comment on above: Performed By: #### ELDA ZHOURO #### [facility] [address] [place] [address] Dr. Calin Marshall Bacteria identified Cx Nom (U) INDICATED Normal [facility] Comment on above: Performed By: #### E LISBET UMICRO #### [facility] [address] [place] [address] Dr. Calin Marshall CAST NONE SEEN Normal NONE SEEN [facility] Comment on above: Performed By: #### E RUR, UMICRO #### [facility] [address] [address] [address] Calin Marshall Crystals LM Nom (Urine sed) NONE SEEN Normal NONE SEEN [facility] Comment on above: Performed By: #### E RUR, UMICRO #### [facility] [address] [address] [address] Calin Marshall Epithelial cells LM Ql (Urine sed) MODERATE Abnormal NONE SEEN /RARE [facility] Comment on above: Performed By: #### E RUR, UMICRO #### [facility] [address] [address] [address] Calin Marshall MUCOUS NONE SEEN Normal NONE SEEN [facility] Comment on above: Performed By: #### E RUR, UMICRO #### [facility] [address] [place] [address] Dr. Calin Marshall RBC 2-5 Abnormal 0-2 [facility] Comment on above: Performed By: #### E RUR, UMICRO #### [facility] [address] [address] [address] Calin Marshall WBC 2-5 Abnormal NONE SEEN [facility] Comment on above: Performed By: #### E RUR, UMICRO #### [facility] [address] [place] [address] Dr. Calin Marshall Vitamin D 25-OHon 08-09-2021 VIT D 25 OH 29 ng/ml Low >29 [facility] Comment on above: Result Comment: Baylee min D Status Deficiency <20 ng/mL Insufficiency 20-29 ng/mL Optimal 30-100 ng/mL Possible Toxicity >=150 ng/mL Performed By: #### V ITD #### [facility] [address] [facility] [facility] [place] [id number] [place] 06-15-2020 Consent [id number]. [id number]:127 Normal [facility] Registrationon 06-15-2020 Registration [id number]. [id number]:127 Normal [facility] Follow Up (Plastic Surgery)o n 07-17-2019 Follow Up (Plastic Surgery) Provider Impressions Status post excision epidermoid cyst right neck and chest, doing well Follow-up when necessary *Chief Complaint Chief Complaint Free Text Note Form: pt here for post op chest and neck History of Present Illness Status post excision epidermoid cysts of right neck and chest. Review of Systems Complete-Female_UH_opt imization: Constitutional: no fever, no chills, no recent weight gain, no recent weight loss and not feeling poorly. *Active Problems Chest mass (786.6) (R22.2) Migraine headache (346.90) (G43.909) Neck mass (784.2) (R22.1) Neck pain (723.1) (M54.2) Preop testing (V72.84) (Z01.818) Surgical History History of Appendectomy History of [place] tooth extraction Family History Family history of depression (V17.0) (Z81.8) Family history of diabetes mellitus (V18.0) (Z83.3) Family history of hypertension (V17.49) (Z82.49) Family history of diabetes mellitus (V18.0) (Z83.3) Social History Former smoker (V15.82) (Z87.891) quit 2014 Marijuana Occasional alcohol use *Allergies amoxicillin Hives;; Recorded By: Aimee Romero; 06/21/2019 9:07:24 AM *Current Meds Medication NameInstruction Magnesium 500 MG Oral Tablet Nexplanon IMPL tiZANidine HCl - 4 MG Oral Capsule *Vitals Vital Signs Recorded: 17Jul2019 09:48AM Jlgwmjkxyqq94.2 F, Oral Iunmpxlf047 Daxktlwty25 Height5 ft 2.5 in Gpyyht567 lb BMI Arnanojnup68.2 BSA Calculated1.88 Pain Scale0 Physical Exam Examination reveals some erythema in both sites. I have removed the sutures from the chest incision. We have discussed scar maturation and the use of mederma or scar guard 'Scores and Scales' Signatures Electronically signed by : Vikas Garrido MD,; Jul 17 2019 10:00AM EST (Author) Normal [facility]2019 [facility] Name NATALEE GUERRA Pathologist: BRIAN SHAH DO Date of Procedure: 06/25/2019 Date Received: 06/25/2019 Date Reported 06/27/2019 Submitting Physician: VIKAS GARRIDO MD Location: [facility] Copy To/Referring/Attending : VIKAS GARRIDO MD Other External # FINAL DIAGNOSIS A. RIGHT NECK MASS: -- EPIDERMOID CYST. B. RIGHT CHEST MASS: -- EPIDERMOID CYST. Electronically Signed Out By BRIAN SHAH DO/KXN By the signature on this report, the individual or group listed as making the Final Interpretation/Diagnos is certifies that they have reviewed this case. Clinical History: MASS RIGHT NECK AND CHEST Specimens Submitted As: A: RIGHT NECK MASS B: RIGHT CHEST MASS Gross Description: A. Received in formalin, labeled with the patient's name, hospital number, and Right Neck Mass , is an unoriented skin ellipse with subcutaneous tissue. The specimen measures 1.7 x 0.6 x 0.6 cm. The skin surface is cabello. The deep tissue is inked in black and the specimen is serially sectioned. The cut surface reveals a well-circumscribed cyst measuring 0.2 cm in diameter. The cyst contains white soft material. Submitted entirely in two cassettes. TAS B. Received in formalin, labeled with the patient's name, hospital number, and Right Chest Mass , is one irregular pale yellow to brown soft tissue fragment, measuring 1.9 x 1.4 x 1.3 cm. The specimen is inked and serially sectioned. The cut surface reveals a cyst containing white cabello soft material. Submitted entirely in one cassette. Summary of Cassettes: Specimen Label Site A 1 tips of ellipse 2 central area of specimen tas/06/26/2019 Normal [facility] History and Physical - Surgi endy Update < 30 dayson 06-25-2019 History and Physical - Surgical Update < 30 days History & Physical Reviewed: I have reviewed the History and Physical dated: 25-Jun-2019 History and Physical reviewed and relevant findings noted. Patient examined to review pertinent physical findings.: No significant changes Home Medications Reviewed: no changes noted Allergies Reviewed: no changes noted This patient has been seen and discussed with the attending physician responsible for performing the procedure: yes Signatures/Attestation /Certification: Note Completion: Attending Provider Inpatient Certification StatementObservation patient/other outpatient visits Electronic Signatures: Jeremiah, Vikas (MD) (Signed 25-Jun-2019 07:07) Authored: History & Physical Reviewed, Signatures/Attestation /Certification Last Updated: 25-Jun-2019 07:07 by Vikas Garrido) [facility] Operative Reports - [place] 06-25-2019 Operative Reports - [place] PREOPERATIVE DIAGNOSIS: Mass of right neck and chest. POSTOPERATIVE DIAGNOSIS: Mass of right neck and chest. PROCEDURE: Excision of mass of right neck and chest. TIN CONTAINER STRAIGHTENER: Henok Sanchez. ANESTHESIA: MAC. OPERATIVE INDICATIONS: The patient is a 24-year-old white female with a recurrent cystic mass on the right neck that became inflamed and infected and now has resolved but with a residual cystic mass which measures approximately 1.5 cm. There is also a mass in the sternal notch measuring 2 cm. The patient now is to undergo excision of both under MAC anesthesia. OPERATIVE PROCEDURE: The patient was taken to the operating suite and placed in supine position. After successful sedation by the anesthesia personnel, the each site was then locally infiltrated with 2% lidocaine with 1:100,000 epinephrine. After obtaining good anesthesia, the each site was then prepped and draped in appropriate sterile fashion. The operation was begun by first verifying the operative site verbally with the operating staff. Next, each mass was then removed in total by excising in a lenticular shaped fashion down to subcutaneous tissue. Hemostasis was then obtained using electrocautery for the neck lesion. There was residual scarring noted. The cyst was removed in its entirety. The sternal notch cystic mass was also excised in lenticular shaped fashion down the subcutaneous tissue. Again, hemostasis obtained using electrocautery. Both wounds were then irrigated with normal saline. Closure was then done using interrupted 4-0 Vicryl subdermal sutures and subcutaneous sutures interruptedly followed by a 5-0 fast absorbing sutures to reapproximate the skin of the neck lesion and 4-0 plain gut sutures in simple interrupted fashion to reapproximate the chest lesion. Aquacel Silver and thin DuoDerm were then applied. Gentamicin ointment was then applied to the neck lesion and left open to the air. The patient tolerated the procedure well. All instrument and sponge counts were correct. ESTIMATED BLOOD LOSS: Minimal. Vikas Garrido MD EST EST DICTATION NUMBER: [id number] INTERNAL JOB NUMBER: [id number] CC: MIA PENA JEFFERYBrendaCRISTOPHERJordy Electronic Signatures: Vikas Garrido) (Signed on 25-Jun-2019 09:40) Authored Unsigned, Draft (SYS GENERATED) (Entered on 25-Jun-2019 09:03) Entered Last Updated: 25-Jun-2019 09:40 by Vikas Garrido) [facility] Otheron 06-25-2019 Name NATALEE GUERRA Pathologist: AYALA BENTONate of Procedure: 06/25/2019Date Received: 06/25/2019Date Reported 06/27/2019Submitting Physician: VIKAS GARRIDO MDLocation: [facility] Copy To/Referring/Attending :VIKAS GARRIDO MD Other External # FINAL DIAGNOSISA. RIGHT NECK MASS: -- EPIDERMOID CYST.B. RIGHT CHEST MASS: -- EPIDERMOID CYST. Electronically Signed Out By BRIAN SHAH DO/KXNBy the signature on this report, the individual or group listed as making theFinal Interpretation/Diagnos is certifies that they have reviewed this case. Clinical History:MASS RIGHT NECK AND CHESTSpecimens Submitted As:A: RIGHT NECK MASS B: RIGHT CHEST MASS Gross Description:A. Received in formalin, labeled with the patient's name, hospital number, and Right Neck Mass , is an unoriented skin ellipse with subcutaneous tissue. Thespecimen measures 1.7 x 0.6 x 0.6 cm. The skin surface is cabello. The deep tissueis inked in black and the specimen is serially sectioned. The cut surfacereveals a well-circumscribed cyst measuring 0.2 cm in diameter. The cystcontains white soft material. Submitted entirely in two cassettes.TASB. Received in formalin, labeled with the patient's name, hospital number, and Right Chest Mass , is one irregular pale yellow to brown soft tissue fragment,measuring 1.9 x 1.4 x 1.3 cm. The specimen is inked and serially sectioned. Thecut surface reveals a cyst containing white cabello soft material. Submittedentirely in one cassette.Summary of Cassettes:Specimen Label SiteA 1 tips of ellipse 2 central area of specimen tas/06/26/2019 [facility] Work Phone: Preop Checkliston 06-25-2019 Preop Checklist Preop Checklist: Preop Checklist: Arrival [id number] Arrival Time05:51 Procedure Typecyst off neck, right and upper right chest NPO [id number] 23:00 ID Band Onyes Allergy Bandyes Consent Signedpending H&P Completepending Anesthesia Assessment Completedpending EKG Performednot ordered Chest X-Ray Performednot ordered HCG Urine TestComplete negative Chlorhexadine Bath Givennot applicable Nasal Antiseptic Appliednot applicable Hair Washednot applicable Soap and water bath with hair shampoo the night before surgerynot applicable Hat placed on prior to transportnot applicable SCD's Appliednot applicable ROJAS Hose Appliednot ordered Denturesnot applicable Prostheticsnot applicable Hearing Aidsnot applicable Valuables Securedpiercings in lip, bilateral breasts and belly button plastic not metal Glasses / Contactsnot applicable Bowel Prepno Cardiovascular Assessment: Commentsdeer to anthesia Respiratory Assessment: Breath Soundsdefer to anthesia Neurological Assessment: Level of Consciousnessalert, oriented Mobilitymoves all extremities Able to Express Selfyes Age Appropriateyes Emotional Statuscalm Preop Education: Surgical Site Infection Preventionyes Pain Scales and Managementyes Language / Communication: Language / CommunicationEnglish Electronic Signatures: Mary Jaimes (HALEY) (Signed 25-Jun-2019 06:11) Authored: Preop Checklist Last Updated: 25-Jun-2019 06:11 by Mary Jaimes (HALEY) [facility] Patient Profile - Preop v2on 06-24-2019 Patient Profile - Preop v2 Profile: Initial Info: How to be AddressedHailey Spoken Language PreferredEnglish Source of Informationpatient Are you currently using the Personal Electronic Health Record or MYUHCAREno Are you interested in learning more about MYCARE for the management of your healthnot at this time Instructions Givenbring responsible adult as the charter driver (procedure may be cancelled if no charter driver), center location, remove jewerly/piercings, instructed pt that nipple and umbilical piercings must be removed prior to surgery pt states she was told that as long as the lip, bilateral breasts. and belly button piercings were plastic and not metal she can keep them in Stated Reason for Admission cysts removed Primary Contact Name and NumberTrevolou GuerraFliylh-[phone] Other Contact Names and Numbersmatt dad [phone] Patient Belongingsclothes only Medications Brought to Hospitalno General Health: Weight in kg83 kilogram(s) Weight in xjf389 pound(s) Weight Methodstated Height in cm158.7 centimeter(s) Height in feet5 feet Height in inches2.5 inch(es) Height Methodstated BMI (kg/m2)32.955 square meter Patient or Family Member Reaction to Anesthesiano previous reaction; no previous family member reaction; no metal appendectomy wisdom teeth extracted control implant in left arm, under arm Blood Avoidance/Restrictions none Previous Transfusion Reactionno Health Mgmt: Symptoms/Conditions Managed at Homeneurological; obstetric/gynecologic; skin Are You Currently Breastfeedingno Neurological Symptoms/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/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 Commenthas Nexplanon implant; LMP 4 months ago; 4 months post- Barriers to Managing Healthnone Are You no Relationship/Environ: Resource/Environmental Concernsnone Services Anticipated at Transitionnone Lives Withspouse; dependent child(christelle) Living Arrangementshouse [facility] Substance: Current or Former Substance Use never: e-Cigarette/Vaping YES: Cigarette/Tobacco, Alcohol, Street Drugs Tobacco Cessation Education (provide if tobacco use within the last 12 mos)not applicable Other Tobacco Use Commentsquit 4 years ago Alcohol Use Statuscurrent alcohol Alcohol Amount1-2 drinks Alcohol Frequencymonthly or less Problems Related to Alcohol [address] Drug/Inhalant/ Medication Use Statuscurrent street drug/inhalant/medicati on abuse [address] Drug/Medication/ Inhalant Typemarijuana Street Drug/Medication/ Inhalant Routesmoking Frequency of Street Drug/Medication/Inhala nt Use2-4 times/month Risk Screens: Advance Directive/DNRno Advance Directive Mental Healthnot applicable During the past month, have you often been bothered by feeling down, depressed or hopelessno During the past month, have you often had little interest or pleasure in doing thingsno Have you had any thoughts of harming yourselfno Have you had any thoughts of harming anyone elseno Are you or have you been threatened or abused physically,emotionally or sexually abused by anyoneno Do you feel UNSAFE going back to the place you are livingno Patient is Able to be Assessed for Learningyes Factors Influencing Readiness to Learninterest in learning Factors that Impact Ability to Learnnone Devices/Methods Used to Communicatenone Learning Preferenceswritten material; verbal instruction Cultural Considerationsnone Developmental Considerationsnone Yarsanism Considerationsnone Other learner availableno Falls RiskPatient location auto qualifies him/her for HIGH RISK. Are there any cultural, spiritual, restorationist practices/values/needs that are important for us to knowno Pain Scalenumerical 0-10 Pain Scale Educationteaching provided Current Pain Level0 = None Acceptable Pain Level6 = Moderate Expression of Pain (nonverbal)none Lifestyle Changes/Adaptations in Response to Painno change Barriers to Reporting Painnone Chronic Painno Information Review: Allergies, Home Meds and Significant Events have been Reviewed and Verified with Patient/Familyyes Electronic Signatures: Milena Clarke) (Signed 24-Jun-2019 10:05) Authored: Mary Palacios) (Signed 25-Jun-2019 06:08) Authored: Danelle, Additional Information Last Updated: 25-Jun-2019 06:08 by Mary Jaimes (HALEY) Normal [facility] APTTon 06-21-2019 aPTT Coag (Bld) [Time] 37 s Normal 28 - 38 [facility] Comment on above: Result Comment: THE APTT IS NO LONGER USED FOR MONITORING UNFRACTIONATED HEPARIN THERAPY. FOR MONITORING HEPARIN THERAPY, USE THE HEPARIN ASSAY. Performed By: #### A PTT #### [address] [address] Activated Partial Thrombopla stin Timeon 06-21-2019 aPTT Coag (PPP) [Time] 37 {sec} 28 - 38 [facility] Work Phone: Comment on above: THE APTT IS NO LONGE R USED FOR MONITORING UNFRACTIONATED HEPARIN THERAPY. FOR MONITORING HEPARIN THERAPY, USE THE HEPARIN ASSAY. CBC AND DIFFERENTIALon 06-21 % AUTOMATED IMMATURE GRAN 0.1 % Normal 0.0 - 0.9 [facility] Comment on above: Result Comment: Perc ent differential counts (%) should be interpreted in the context of the absolute cell counts (cells/L). Performed By: #### C BCDF #### [address] [address] Basophils (Bld) [#/Vol] 0.03 10*3/uL Normal 0.00 - 0.10 [facility] Comment on above: Performed By: #### C BCDF #### [address] [address] Eosinophils (Bld) [#/Vol] 0.04 10*3/uL Normal 0.00 - 0.70 [facility] Comment on above: Performed By: #### C BCDF #### [address] [address] Lymphocytes (Bld) [#/Vol] 3.08 10*3/uL Normal 1.20 - 4.80 [facility] Comment on above: Performed By: #### C BCDF #### [address] [address] Monocytes (Bld) [#/Vol] 0.49 10*3/uL Normal 0.10 - 1.00 [facility] Comment on above: Performed By: #### C BCDF #### [address] [address] Neutrophils (Bld) [#/Vol] 5.85 10*3/uL Normal 1.20 - 7.70 [facility] Comment on above: Performed By: #### C BCDF #### [address] [address] Platelets (Bld) [#/Vol] 363 10*3/uL Normal 150 - 450 [facility] Comment on above: Performed By: #### C BCDF #### [address] [address] RBC (Bld) [#/Vol] 4.68 x10E12/L Normal 4.00 - 5.20 [facility] Comment on above: Performed By: #### C BCDF #### [address] [address] WBC (Bld) [#/Vol] 9.5 10*3/uL Normal 4.4 - 11.3 [facility] Comment on above: Performed By: #### C BCDF #### [facility] [address] [place] [address] Basophils/100 WBC (Bld) 0.3 % 0.0 - 2.0 [facility] Work Phone: Comment on above: Performed By: #### C BCDF #### [facility] [address] [place] [address] Eosinophils/100 WBC (Bld) 0.4 % 0.0 - 6.0 [facility] Work Phone: Comment on above: Performed By: #### C BCDF #### [facility] [address] [place] [address] Erythrocyte distribution width (RBC) [Ratio] 11.9 % See Below [facility] Work Phone: Comment on above: Performed By: #### C BCDF #### [address] [address] Reference Range: 11. 5 - 14.5 Hematocrit (Bld) [Volume fraction] 41.6 % See Below [facility] Work Phone: Comment on above: Performed By: #### C BCDF #### [address] [address] Reference Range: 36. 0 - 46.0 Hemoglobin (Bld) [Mass/Vol] 13.9 g/dL See Below [facility] Work Phone: Comment on above: Performed By: #### C BCDF #### [address] [address] Reference Range: 12. 0 - 16.0 Lymphocytes/100 WBC (Bld) 32.4 % See Below [facility] Work Phone: Comment on above: Performed By: #### C BCDF #### [address] [address] Reference Range: 13. 0 - 44.0 MCHC (RBC) [Mass/Vol] 33.4 g/dL See Below [facility] Work Phone: Comment on above: Performed By: #### C BCDF #### [address] [address] Reference Range: 32. 0 - 36.0 MCV (RBC) [Entitic vol] 89 fL 80 - 100 [facility] Work Phone: Comment on above: Performed By: #### C BCDF #### [address] [address] Monocytes/100 WBC (Bld) 5.2 % 2.0 - 10.0 [facility] Work Phone: Comment on above: Performed By: #### C BCDF #### [address] [address] Neutrophils/100 WBC (Bld) 61.6 % See Below [facility] Work Phone: Comment on above: Performed By: #### C BCDF #### [address] [address] Reference Range: 40. 0 - 80.0 [facility] Albumin [Mass/Vol] 4.8 g/dL Normal 3.4 - 5.0 [facility] Comment on above: Performed By: #### C MP #### [address] [address] ALP [Catalytic activity/Vol] 83 U/L Normal 33 - 110 [facility] Comment on above: Performed By: #### C MP #### [address] [address] ALT [Catalytic activity/Vol] 15 U/L Normal 7 - 45 [facility] Comment on above: Result Comment: Janet ents treated with Sulfasalazine may generate falsely decreased results for ALT. Performed By: #### C MP #### [facility] [address] [place] [address] Anion gap [Moles/Vol] 11 mmol/L Normal 10 - 20 [facility] Comment on above: Performed By: #### C MP #### [facility] [address] [place] [address] AST [Catalytic activity/Vol] 12 U/L Normal 9 - 39 [facility] Comment on above: Performed By: #### C MP #### [address] [address] Bilirubin [Mass/Vol] 0.3 mg/dL Normal 0.0 - 1.2 [facility] Comment on above: Performed By: #### C MP #### [address] [address] Calcium [Mass/Vol] 10.7 mg/dL High 8.6 - 10.3 [facility] Comment on above: Performed By: #### C MP #### [address] [address] Chloride [Moles/Vol] 102 mmol/L Normal 98 - 107 [facility] Comment on above: Performed By: #### C MP #### [address] [address] Creatinine [Mass/Vol] 0.80 mg/dL Normal 0.50 - 1.05 [facility] Comment on above: Performed By: #### C MP #### [address] [address] GFR- AM. >60 Normal >60 [facility] Comment on above: Result Comment: CALC ULATIONS OF ESTIMATED GFR ARE PERFORMED USING THE MDRD STUDY EQUATION FOR THE IDMS-TRACEABLE CREATININE METHODS. CLIN CHEM 2007;53:766-72 Performed By: #### C MP #### [address] [address] GFR-NON AM. >60 Normal >60 [facility] Comment on above: Performed By: #### C MP #### [facility] [address] [place] [address] Glucose [Mass/Vol] 82 mg/dL Normal 74 - 99 [facility] Comment on above: Performed By: #### C MP #### [address] [address] HCO3 (Bld) [Moles/Vol] 26 mmol/L Normal 21 - 32 [facility] Comment on above: Performed By: #### C MP #### [address] [address] Potassium [Moles/Vol] 4.1 mmol/L Normal 3.5 - 5.3 [facility] Comment on above: Performed By: #### C MP #### [address] [address] Protein [Mass/Vol] 8.2 g/dL Normal 6.4 - 8.2 [facility] Comment on above: Performed By: #### C MP #### [address] [address] Sodium [Moles/Vol] 135 mmol/L Low 136 - 145 [facility] Comment on above: Performed By: #### C MP #### [address] [address] Urea nitrogen [Mass/Vol] 16 mg/dL Normal 6 - 23 [facility] Comment on above: Performed By: #### C MP #### [address] [address] Complete Blood Count + Diffe [facility] 06-21-2019 Basophils (Bld) [#/Vol] 0.03 {x10E9/L} See Below [facility] Work Phone: Comment on above: Reference Range: 0.0 0 - 0.10 Eosinophils (Bld) [#/Vol] 0.04 {x10E9/L} See Below [facility] Work Phone: Comment on above: Reference Range: 0.0 0 - 0.70 Lymphocytes (Bld) [#/Vol] 3.08 {x10E9/L} See Below [facility] Work Phone: Comment on above: Reference Range: 1.2 0 - 4.80 Monocytes (Bld) [#/Vol] 0.49 {x10E9/L} See Below [facility] Work Phone: Comment on above: Reference Range: 0.1 0 - 1.00 Neutrophils (Bld) [#/Vol] 5.85 {x10E9/L} See Below [facility] Work Phone: Comment on above: Reference Range: 1.2 0 - 7.70 Platelets (Bld) [#/Vol] 363 {x10E9/L} 150 - 450 [facility] Work Phone: RBC (Bld) [#/Vol] 4.68 {x10E12/L} See Below [facility] Work Phone: Comment on above: Reference Range: 4.0 0 - 5.20 WBC (Bld) [#/Vol] 9.5 {x10E9/L} 4.4 - 11.3 [facility] Work Phone: Complete Blood Count + Differential 0.1 % 0.0 - 0.9 [facility] Work Phone: Comment on above: Percent differential counts (%) should be interpreted in the context of the absolute cell counts (cells/L). HCG, Serum - Qualitativeon 08-22-2018 HCG ( test) Ql Negative Negative [facility] Work Phone: HCG,SERUM QUALITATIVEon 06-09 HCG,SERUM QUALITATIVE Negative Normal Negative [facility] Comment on above: Performed By: #### H CGS #### [address] [address] Hematologyon 06-21-2019 INR Coag (PPP) [Relative time] 1.1 {INR} 0.9 - 1.1 [facility] Work Phone: PT Coag (PPP) [Time] 12.3 {sec} 9.7 - 12.7 [facility] Work Phone: Metabolic Panelon 06-21-2019 ALP [Catalytic activity/Vol] 83 U/L 33 - 110 [facility] Work Phone: Anion gap [Moles/Vol] 11 mmol/L 10 - 20 [facility] Work Phone: Bilirubin [Mass/Vol] 0.3 mg/dL 0.0 - 1.2 [facility] Work Phone: Calcium [Mass/Vol] 10.7 mg/dL above high threshold 8.6 - 10.3 [facility] Work Phone: Chloride [Moles/Vol] 102 mmol/L 98 - 107 [facility] Work Phone: CO2 [Moles/Vol] 26 mmol/L 21 - 32 [facility] Work Phone: Creatinine [Mass/Vol] 0.80 mg/dL See Below [facility] Work Phone: Comment on above: Reference Range: 0.5 0 - 1.05 Glucose [Mass/Vol] 82 mg/dL 74 - 99 [facility] Work Phone: Potassium [Moles/Vol] 4.1 mmol/L 3.5 - 5.3 [facility] Work Phone: Protein [Mass/Vol] 8.2 g/dL 6.4 - 8.2 [facility] Work Phone: Sodium [Moles/Vol] 135 mmol/L below low threshold 136 - 145 [facility] Work Phone: Urea nitrogen [Mass/Vol] 16 mg/dL 6 - 23 [facility] Work Phone: Otheron 06-21-2019 Albumin BCP dye [Mass/Vol] 4.8 g/dL 3.4 - 5.0 [facility] Work Phone: ALT With P-5'-P [Catalytic activity/Vol] 15 U/L 7 - 45 [facility] Work Phone: Comment on above: Patients treated wit h Sulfasalazine may generate falsely decreased results for ALT. AST With P-5'-P [Catalytic activity/Vol] 12 U/L 9 - 39 [facility] Work Phone: >60 >60 [facility] Work Phone: Comment on above: CALCULATIONS OF [place] MATED GFR ARE PERFORMED USING THE MDRD STUDY EQUATION FOR THE IDMS-TRACEABLE CREATININE METHODS. CLIN CHEM 2007;53:766-72 PT/INRon 06-21-2019 INR Coag (PPP) [Relative time] 1.1 {INR} Normal 0.9 - 1.1 [facility] Comment on above: Performed By: #### P TINR #### [facility] [address] [place] [address] PT Coag (PPP) [Time] 12.3 s Normal 9.7 - 12.7 [facility] Comment on above: Performed By: #### P TINR #### [facility] [address] [place] [address] Vital Signs Date Time Vital Sign Value Performing Clinician Facility 02-26-2023 08:42-0400 Body temperature 97.6 [degF] PHYSICIAN JAMILA [facility] 02-26-2023 08:42-0400 Diastolic blood pressure 90 mm[Hg] PHYSICIAN JAMILA [facility] 02-26-2023 08:42-0400 Heart rate 89 /min PHYSICIAN NO [place] 02-26-2023 08:42-0400 Respiratory rate 16 /min PHYSICIAN NO [facility] 02-26-2023 08:42-0400 SaO2% (BldA) [Mass fraction] 100 % PHYSICIAN NO [facility] 02-26-2023 08:42-0400 Systolic blood pressure 135 mm[Hg] PHYSICIAN NO [facility] 02-23-2023 09:26-0400 Body height 154.94 cm PHYSICIAN NO [place] 02-23-2023 09:26-0400 Body weight 81.64 kg PHYSICIAN NO [place] 10-07-2022 03:06-0400 Body weight 80.[address] RACHID GLEZ . [facility] Comment on above: Performed By: #### AFPMAT #### [facility] [address] [place] [address] Dr. Calin Marshall 07-17-2019 11:48-0500 BMI (Body Mass Index) 34.2 kg/m2 Vikas Jeremiah [facility] Work Phone: 07-17-2019 11:48-0500 Body Temperature 99.2 [degF] Vikas Jeremiah [facility] Work Phone: Comment on above: Method: Oral 07-17-2019 11:48-0500 Body weight 86.18 kg Vikas Jeremiah [facility] Work Phone: 07-17-2019 11:48-0500 BP Diastolic 92 mm[Hg] Vikas Jeremiah [facility] Work Phone: 07-17-2019 11:48-0500 BP Systolic 150 mm[Hg] Vikas Jeremiah [facility] Work Phone: 07-17-2019 11:48-0500 BSA (Body Surface Area) 1.88 m2 Vikas Jeremiah [facility] Work Phone: 07-17-2019 11:48-0500 Height 158.75 cm Vikas Jeremiah [facility] Work Phone: 07-17-2019 11:48-0500 0 1 Vikas Jeremiah [facility] Work Phone: Comment on above: Pain Scale 06-21-2019 11:01-0500 BMI (Body Mass Index) 32.94 kg/m2 Vikas Jeremiah [facility] Work Phone: 06-21-2019 11:01-0500 Body weight 83.01 kg Vikas Jeremiah [facility] Work Phone: 06-21-2019 11:01-0500 BP Diastolic 80 mm[Hg] Vikas Jeremiah [facility] Work Phone: Comment on above: Location: RUE; Position: Sitting 06-21-2019 11:01-0500 BP Systolic 138 mm[Hg] Vikas Jeremiah [facility] Work Phone: Comment on above: Location: [facility]UE; Position: Sitting 06-21-2019 11:01-0500 BSA (Body Surface Area) 1.85 m2 Vikas Jeremiah [facility] Work Phone: 06-21-2019 11:01-0500 Height 158.75 cm Vikas Jeremiah [facility] Work Phone: 06-21-2019 11:01-0500 0 1 Vikas Jeremiah [facility] Work Phone: Comment on above: Pain Scale Encounters Encounter Date Encounter Type Care Provider Facility Start: 11-22-2023 End: 11-22-2023 ambulatory HUI Ivan POLLOCK [facility] Start: 02-27-2023 End: 02-27-2023 ambulatory Celestina Ely Facility:[facility] Start: 02-27-2023 End: 02-27-2023 ambulatory PHYSICIAN NO [facility] Work Phone: Start: 02-27-2023 End: 02-27-2023 Patient encounter procedure PHYSICIAN NO [facility]- Visit Work Phone: Start: 02-23-2023 End: 02-26-2023 Evaluation and management of inpatient Diana Nataustinawira Facility:[facility] Start: 02-23-2023 End: 02-26-2023 Evaluation and management of inpatient PHYSICIAN NO [facility] Work Phone: Start: 01-31-2023 End: 01-31-2023 ambulatory PHYSICIAN NO Facility:[facility] Start: 01-31-2023 End: 01-31-2023 ambulatory DO Diana Nataustinawira Work Phone: [facility] Work Phone: Start: 01-31-2023 End: 01-31-2023 Departed Referred DO Diana Nataustinawira Work Phone: [facility] [place] Work Phone: Start: 10-19-2022 End: 10-20-[address] RACHID GLEZ . Facility:[facility] Start: 10-05-2022 End: 10-06-[address] RACHID GLEZ . Facility:[facility] Start: 09-07-2022 Encounter for gynecological examination (general) (routine) without abnormal findings DR RACHID GLEZ . [facility] Start: 09-05-2022 End: 09-05-[address] RACHID GLEZ . Facility:[facility] Start: 09-05-2022 End: 09-05-2022 Encounter for gynecological examination (general) (routine) without abnormal findings DR RACHID GLEZ . Facility:[facility] Start: 08-10-2022 End: 08-11-[address] RACHID GLEZ . Facility:[facility] Start: 07-25-2022 End: 07-26-[address] RACHID GLEZ . Facility:[facility] Start: 07-12-2022 End: 07-12-[address] DOCTOR BELLO Facility:[facility] Start: 07-08-2022 End: 07-08-[address] KAROLYN Chen Facility:[facility] Start: 11-08-2021 End: 11-09-[address] JAKE RODRIGUEZ Facility:[facility] Start: 07-17-2019 Patient encounter procedure Vikas Garrido [facility] Work Phone: Start: 06-21-2019 Patient encounter procedure Vikas Garrido [facility] Work Phone: Patient encounter status Mia Mckinley [facility] Work Phone: Procedures Date Procedure Procedure Detail Performing Clinician Start: 02-23-2023 Antibody screen PHYSICI AN NO FAMILY Comment on above: Result Comment: PERF ORMED BY: [facility] [place] [address] PATHOLOGIST [employer] FLORY JAIN M.D. Start: 02-23-2023 Urine culture PHYSICIAN NO FAMILY Start: 01-31-2023 Group B Streptococcus Culture PHYSICIAN NO FAMILY Start: 06-21-2019 Thromboplastin time partial plasma/whole blood Vikas Garrido Start: 06-21-2019 Follow-up visit Appendectomy Vikas Garrido Extraction of wisdom tooth R olargelia [place] H/O: section S/P PHYSI LELE NO FAMILY Plan of Treatment Date Care Activity Detail Author Start: 02-26-2023 [facility] Start: 02-24-2023 Hospital admission [facility] Start: 01-31-2023 Following clinical pathway protocol [facility] Start: 01-31-2023 Group B Streptococcus Culture Group B Streptococcus Culture [facility] Patient Education Post- Di reynaldo Instructions ([facility]) [facility] Work Phone: Patient referral [facility] Work Phone: Immunizations Immunization Date Immunization Notes Care Provider Loida lopez 02-24-2023 tetanus toxoid, redu ramila diphtheria toxoid, and acellular pertussis vaccine, adsorbed PHYSICIAN NO FAMILY [facility] Payers Date Payer Category Payer Unknown [id number] 1995 Unknown [id number] 2.16.84 [id number] 1993 Unknown [id number] 2.16.84 [id number] 1993 Unknown [id number] 2.16.84 [id number] 1993 Unknown [id number] 2.16.84 [id number] 1993 Unknown [id number] 2.16.84 [id number] 1993 Unknown [id number] 2.16.84 [id number] 1993 Unknown [id number] 2.16.84 [id number] 1993 Unknown [id number] 2.16.84 [id number] 1993 Unknown [id number] 2.16.8 [id number] 1993 Unknown [id number] 2.16.8 40.1.270827.3.579.2.1286 1993 Unknown [id number] 2.16.8 [id number] 1959 Self-pay 1959 Unknown [id number] 1959 Unknown [id number] Unknown [id number] 2.16.84 [id number] Unknown HCAP/HFA/FAP Active [id number] Unknown [id number] 2.16.8 [id number] Unknown [id number] 2.16.8 [id number] Unknown [id number] 2.16.8 [id number] Social History Date Type Detail Facility Start: 1995 Sex Assigned At Female F [facility] Start: 02-23-2023 Tobacco smoking status NHIS Never smoked tobacco (finding) [facility] NEGATED: Highlighted row - - [facility] Work Phone: Goals Date Patient Goal Desired Activity /State Functional Status Date Assessment Result Facility 02-26-2023 Functional status Patient at Baseline [facility] Work Phone: NEGATED: Highlighted row Functional performance Functional status health issues are not documented Disease [facility] Work Phone: Mental Status Date Assessment Result Facility 02-26-2023 Cognitive function Cognitive Sta tus Patient at Baseline [facility] Work Phone: NEGATED: Highlighted row Cognitive function [Interpretation] Cognitive status health issues are not documented Disease [facility] Work Phone: Progress note 02-26-2023 Note Date & Type Note Facility 02-26-2023 Progress note Note Date/Time February 26, 2023 9:01am [facility] [address] [place] [address] [employer] Progress Note Signed Patient: Natalee Guerra MR#: [id number] : 1995 Acct:[id number] Age/Sex: 27 / F Adm Date: 3 Loc: Room: [address] [place] [address] Type: ADM IN Attending Dr: Diana Sorenson DO Copies to: ~ Date of Service: 02/26/2023 OB - PN: Subj Subjective Post Delivery Day #: Day 3 Interval history: Patient doing well, no concerns. Feels much better today, no gas pains. Tolerating PO well, passing flatus Patient comments: pain well controlled, tolerating diet, flatus present (flatus present, no BM) and other; no incisional pain baby status: doing well feeding status: exclusively breast feeding OB - PN: Obj Exam Physical Exam Vital signs: Vital Signs - 8 hr 02/26/23 00:00 Temperature 98.1 F Pulse Rate [Apical] 84 Respiratory Rate 18 Blood Pressure [Left Arm] 132/87 02 Sat by Pulse Oximetry 97 Oxygen Delivery Method Room Air Constitutional Constitutional: no acute distress and cooperative Comments: patient is alert, awake, and appears comfortable Respiratory Exam Respiratory: Present CTA bilaterally; Absent accessory muscle use, decreased breath sounds, rhonchi, stridor, wheezes or crackles Cardiovascular Exam Cardiovascular: Present RRR; Absent murmur, gallop or rubs Abdominal Exam Abdominal: Present soft and normoactive bowel sounds; Absent tenderness, distended, rebound or guarding Fundus: Present firm Comments: U=-1 Extremities Exam Extremities: Present pulses intact; Absent cyanosis, clubbing, edema, calf tenderness or Delano's sign Skin Exam Skin: Present intact; Absent cyanosis or jaundice Psychiatric Exam Psychiatric: Present normal affect and normal thought process Wound Management Method: suture Examination: Present clean, dry and intact; Absent bloody drainage, serosanguinous drainage or edematous Urinary Catheter Management Urethral (Ibarra): Cath placed during this visit: no OB - PN: Obj Data Labs 02/25/23 12:44 02/25/23 12:44 Labs: 02/25/23 12:44: PHA Creatinine Clear 81.19, Est GFR (CKD-EPI) > 60.0, Total Bilirubin 0.3, AST 11 L, ALT 12, Alkaline Phosphatase 107 H, Total Protein 6.7, Albumin 3.4 L, Globulin 3.3, Albumin/Globulin Ratio 1.0 02/25/23 12:44: Uncorrected WBC Count 15.7 H, MCV 90.1, MCH 29.9, MCHC 33.2, RDW14.1, Plt Count 348, MPV 7.8, Neut % (Auto) 78.0, Lymph % (Auto) 14.7, [place] % (Auto) 6.6, Eos % (Auto) 0.3, Baso % (Auto) 0.4, Nucleat RBC Rel Count 0.0, Neut# (Auto) 12.2 H, Lymph # (Auto) 2.3, [place] # (Auto) 1.0 H, Eos # (Auto) 0.0, Baso# (Auto) 0.1 Microbiology Micro Results: Microbiology 02/23/23 09:34 Urine - Clean-Voided Midstream Urine Culture - Final <9,000 colonies/ml mixed bacterial skin contaminants 2 Days Assessment/Plan Assessment (1) delivery delivered: Code(s): O82 - Encounter for delivery without indication Status: Acute Plan: Home instructions and follow up instructions reviewed. Plan for discharge to home. 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 Was having nausea this morning due to the gas pain. Ambulating withoutdifficulty, passing flatus Patient comments: tolerating diet (patient did not feel nauseous after dinner last night) and flatus present; no incisional pain [place] baby status: doing well [place] feeding status: exclusively breast feeding OB - PN: Obj Exam Physical Exam Vital signs: Vital Signs - 8 hr 02/25/23 00:00 Temperature 97.7 F Pulse Rate 86 Respiratory Rate 20 Blood Pressure 130/83 02 Sat by Pulse Oximetry 95 Oxygen Delivery Method Room Air Constitutional Constitutional: no acute distress and cooperative Respiratory Exam Respiratory: Present CTA bilaterally; Absent accessory muscle use, decreased breath sounds, rhonchi, stridor, wheezes or crackles Cardiovascular Exam Cardiovascular: Present RRR; Absent murmur, gallop or rubs Abdominal Exam Abdominal: Present soft; Absent normoactive bowel sounds (hypoactive bowel sounds), tenderness, distended, rebound or guarding Fundus: Present firm Comments: U=0 Extremities Exam Extremities: Present pulses intact; Absent cyanosis, clubbing, edema, calf tenderness or Delano's sign Skin Exam Skin: Present intact; Absent cyanosis or jaundice Psychiatric Exam Psychiatric: Present normal affect and normal thought process Wound Management Method: suture Examination: Present clean, dry and intact; Absent erythematous, bloody drainageor serosanguinous drainage Urinary Catheter Management Urethral (Ibarra): Cath placed during this visit: no OB - PN: Obj Data Labs 02/24/23 06:33 Labs: 02/24/23 06:33: Uncorrected WBC Count 19.4 H, MCV 88.7, MCH 30.5, MCHC 34.4, RDW13.8, Plt Count 286, MPV 8.1, Neut % (Auto) 77.7, Lymph % (Auto) 15.8, [place] % (Auto) 6.3, Eos % (Auto) 0.0, Baso % (Auto) 0.2, Nucleat RBC Rel Count 0.0, Neut# (Auto) 15.1 H, Lymph # (Auto) 3.1, [place] # (Auto) 1.2 H, Eos # (Auto) 0.0, Baso# (Auto) 0.0 Microbiology Micro Results: Microbiology 02/23/23 09:34 Urine - Clean-Voided Midstream Urine Culture - Preliminary <9,000 colonies/ml mixed bacterial skin contaminants 1 Day Assessment/Plan Assessment (1) delivery delivered: Code(s): O82 - Encounter for delivery without indication Status: Acute Plan: Patient unsure if wanting discharge later today. Home instructions and follow upinstructions reviewed in case patient is wanting to leave. 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 Catheter was removed today, so she denies urinating on her own yet. She reports a headache that beganthis morning but has since subsided and minimal vaginal bleeding without clots. She denies dizziness, SOB, chest pain, calf edema/tenderness, vision changes); no incisional pain or no tolerating diet (Patient reports that she vomited yesterday night after eating crackers, pretzels, and a grilled cheese sandwich. She has not eaten since but has been drinking fluids.) [place] baby status: doing well and nursing well feeding status: exclusively breast feeding OB - PN: Obj Exam Physical Exam Vital signs: Vital Signs - 8 hr 02/23/23 22:38 02/23/23 22:42 02/23/23 22:35 Temperature Pulse Rate 99 H Pulse Rate [Monitor] Respiratory Rate 16 Blood Pressure 137/90 Blood Pressure [Left Arm] 02 Sat by Pulse Oximetry 97 Oxygen Delivery Method 02/24/23 00:12 02/24/23 03:00 02/24/23 04:00 Temperature 98.2 F 97.8 F Pulse Rate 81 Pulse Rate [Monitor] 77 Respiratory Rate 16 18 18 Blood Pressure 121/76 Blood Pressure [Left Arm] 136/81 02 Sat by Pulse Oximetry 95 97 Oxygen Delivery Method Room Air 02/24/23 04:00 Temperature Pulse Rate Pulse Rate [Monitor] Respiratory Rate 18 Blood Pressure Blood Pressure [Left Arm] 02 Sat by Pulse Oximetry Oxygen Delivery Method Constitutional Constitutional: no acute distress and cooperative Comments: Patient is awake, alert, and appears comfortable Respiratory Exam Respiratory: Present CTA bilaterally; Absent accessory muscle use, decreased breath sounds, rhonchi, stridor, wheezes or crackles Cardiovascular Exam Cardiovascular: Present RRR; Absent murmur, gallop or rubs Abdominal Exam Abdominal: Present soft; Absent normoactive bowel sounds (hypoactive bowel sounds), tenderness, distended, rebound or guarding Fundus: Present firm Comments: U=0 Extremities Exam Extremities: Present pulses intact; Absent cyanosis, clubbing, edema, calf tenderness or Delano's sign Skin Exam Skin: Present intact; Absent cyanosis or jaundice Psychiatric Exam Psychiatric: Present normal affect and normal thought process Wound Management Method: suture Examination: Present dressed, clean and dry Urinary Catheter Management Urethral (Ibarra): Cath placed during this visit: no OB - PN: Obj Data Labs 02/23/23 09:48 Labs: 02/23/23 17:02: Blood Type Recheck A Positive 02/23/23 14:50: Sample Site Umbilical cord, Cord Blood pH 7.42, Cord Blood PCO2 38.2, Cord Blood PO2 20.1 L*, Cord Blood HCO3 23.9, Cord Blood Total CO2 25.1, Cord ABG Base Excess -0.3, Cord ABG O2 Sat 54.3 L, Cord ABG O2 Content 5.1 L, FiO2 21, Critical Value 02/23/23 11:43: Blood Type A Positive, Antibody Screen Negative 02/23/23 09:48: Uncorrected WBC Count 12.7 H, MCV 87.6, MCH 30.2, MCHC 34.5, RDW14.1, Plt Count 331, MPV 8.1, Neut % (Auto) 70.6, Lymph % (Auto) 23.1, [place] % (Auto) 5.5, Eos % (Auto) 0.4, Baso % (Auto) 0.4, Nucleat RBC Rel Count 0.0, Neut# (Auto) 9.0 H, Lymph # (Auto) 2.9, [place] # (Auto) 0.7, Eos # (Auto) 0.0, Baso # (Auto) 0.0 02/23/23 09:48: RPR w/Rflx to Titer Non reactive 02/23/23 09:34: Urine Opiates Screen Negative, Ur Barbiturates Screen Negative, Ur Phencyclidine Scrn Negative, Ur Amphetamines Screen Negative, U Benzodiazepines Scrn Negative, Urine Cocaine Screen Negative 02/23/23 09:34: Urine Color Yellow, Urine Appearance Cloudy A, Urine pH 7.0, Ur Specific [employer] 1.016, Urine Protein 30 H, Urine Glucose (UA) Normal, Urine Ketones Trace H, Urine Occult Blood Negative, Urine Nitrite Negative, Urine Bilirubin Negative, Urine Urobilinogen Normal, Ur Leukocyte Esterase 2+ H, UrineRBC 3-4, Urine WBC 10-19 H, Ur Squamous Epith Cells 10-19 H, Urine Bacteria 2+ H, Hyaline Casts None seen, Other Casts None seen Assessment/Plan Assessment (1) delivery delivered: Code(s): O82 - Encounter for delivery without indication Status: Acute Plan plan (if applicable): routine postop care Documented By: CHRISTIANO Villanueva 02/24/23 06 29 Signed By: <Electronically signed by CHRISTIANO Kendall> 02/24/23 1153 [facility] Work Phone: Procedure note 02-23-2023 Note Date & Type Note Facility 02-23-2023 Procedure note [facility] Evaluation note Note Date & Type Note Facility Evaluation note No assessment information availa [facility] Work Phone: Evaluation note Note Date & Type Note Facility Evaluation note Diagnosis Onset Date delivery delivered acute [facility] Work Phone: Instructions Note Date & Type Note Facility Instructions Name Instructions not documented [facility] Work Phone: Summary Purpose Family History No Family History Records Found Mother Name Dates Details Family history of diabetes lily guillaume(V18.0, Z83.3) Status:Active Family history of hypertensi on(V17.49, Z82.49) Status:Active Family history of depression (V17.0, Z81.8) Status:Active Father Name Dates Details Family history of diabetes lily guillaume(V18.0, Z83.3) Status:Active Mother Name Dates Details Family history of diabetes m ellitus(V18.0, Z83.3) Status:Active Family history of hypertensi on(V17.49, Z82.49) Status:Active Family history of depression (V17.0, Z81.8) Status:Active Father Name Dates Details Family history of diabetes m ellitus(V18.0, Z83.3) Status:Active Mother Name Dates Details Family history of diabetes m ellitus(V18.0, Z83.3) Status:Active Family history of hypertensi on(V17.49, Z82.49) Status:Active Family history of depression (V17.0, Z81.8) Status:Active Father Name Dates Details Family history of diabetes m ellitus(V18.0, Z83.3) Status:Active Mother Name Dates Details Family history of diabetes m ellitus(V18.0, Z83.3) Status:Active Family history of hypertensi on(V17.49, Z82.49) Status:Active Family history of depression (V17.0, Z81.8) Status:Active Father Name Dates Details Family history of diabetes m ellitus(V18.0, Z83.3) Status:Active Mother Name Dates Details Family history of diabetes m ellitus(V18.0, Z83.3) Status:Active Family history of hypertensi on(V17.49, Z82.49) Status:Active Family history of depression (V17.0, Z81.8) Status:Active Father Name Dates Details Family history of diabetes m ellitus(V18.0, Z83.3) Status:Active Mother Name Dates Details Family history of diabetes m ellitus(V18.0, Z83.3) Status:Active Family history of hypertensi on(V17.49, Z82.49) Status:Active Family history of depression (V17.0, Z81.8) Status:Active Father Name Dates Details Family history of diabetes m ellitus(V18.0, Z83.3) Status:Active Advance Directives No Advanced Directives Records Found Advance Directive Response Recorded Date/ Time Advance Directives No March 08, 2021 8:48am Procedure Findings Note Post Operative Note: PreOp D iagnosis: mass of RIGHT neck and chest Post- Procedure Diagnosis: same Procedure: 1.excision mass of RIGHT neck and chest 2. 3. 4. 5. Surgeon: Vikas Garrido MD Resident/Fellow/Other Machinery Mechanic: trav Estimated Blood Loss (mL): minimal Specimen: yes. mass RIGHT neck and chest Findings: cystic mass of RIGHT neck and chest Signature/Cosignature/Attestation: Note Completion: Attending AttestationI performed the procedure without a resident Electronic Signatures: Vikas Garrido) (Signed 25-Jun-2019 08:31) Authored: Post Operative Note, Signature/Cosignature/Attestation Last Updated: 25-Jun-2019 08:31 by Vikas Garrido) Chief Complaint and Reason for Visit Chief Complaint Z36.85 C section Reason for Visit delivery de livered Chief Complaint Z36.85 C section z39.1 Reason for Visit delivery de livered Additional Source Comments INFORMATION SOURCE (unrecogn ized section and content) DATE CREATED AUTHOR 07/02/2019 [facility] DATE CREATED AUTHOR AUTHOR'S ORGANIZ ATION 07/17/2019 [facility] DATE CREATED AUTHOR AUTHOR'S ORGANIZ ATION [facility]/[address] [facility] DATE CREATED AUTHOR AUTHOR'S ORGANIZ ATION 08/10/2021 [facility] DATE CREATED AUTHOR AUTHOR'S ORGANIZ ATION 10/24/2022 [facility] DATE CREATED AUTHOR AUTHOR'S ORGANIZ ATION 02/07/2023 [facility] DATE CREATED AUTHOR AUTHOR'S ORGANIZ ATION 03/07/2023 [facility] DATE CREATED AUTHOR AUTHOR'S ORGANIZ ATION 11/24/2023 [facility] Care Teams (unrecognized sec tion and content) Team Status: Inactive Member Role Status Dates Diana Sorenson DO Attending Provider Active Team Status: Active Member Role Status Dates MUNDO Jennings Primary Care Provider Active Team Status: Inactive Member Role Status Dates Diana Sorenson DO Attending Provider Active PHYSICIAN NO FAMILY Primary Care Provider Active Team Status: Inactive Member Role Status Dates Diana Sorenson DO Admit Provider, Attending Provid er Active Celestina Ely NP-Karina Primary Care Provider Active Team Status: Inactive Member Role Status Dates MUNDO Jennings Primary Care Provider Active Lilia Huber MD Attending Provider Active Goals (unrecognized section and content) Goals may be documented in a n alternate section FOR RECORDS PERTAINING TO PATIENTS WHO ARE OR HAVE BEEN ENROLLED IN A CHEMICAL DEPENDENCY/SUBSTANCEABUSE PROGRAM, SOME INFORMATION MAY BE OMITTED. This clinical summary was aggregated from multiple sources. Caution should be exercised in using it in the provision of clinical care. This summary normalizes information from multiple sources, and as a consequence, information in this document may materially change the coding, format and clinical context of patient data. In addition, data may be omitted in some cases. CLINICAL DECISIONS SHOULD BE BASED ON THE PRIMARY CLINICAL RECORDS. [facility] [email or web address] [facility]. provides no warranty or guarantee of the accuracy or completeness of information in this document.
[2023-11-27 03:06] LABS: Basophils Absolute Auto 0.1 10^3/uL (0.0-0.1); Basophils Percent Auto 0.3 % (0.2-2.0); Eosinophils Absolute Auto 0.1 10^3/uL (0.0-0.7); Eosinophils Percent Auto 0.6 % (0.9-7.0); Hematocrit 38.5 % (36.0-48.0); Hemoglobin 13.1 g/dL (12.0-16.0); Immature Granulocytes Abs Auto 0.05 10^3/uL (0.00-0.03); Immature Granulocytes Pct Auto 0.3 % (0.0-0.5); Lymphocytes Percent Auto 19.9 % (20.5-60.0); Mean Corpuscular Hemoglobin 29.3 pg (26.7-34.0); Mean Corpuscular Volume 86.1 fL (81.0-99.0); Mean Platelet Volume 9.6 fL (9.5-13.5); Monocytes Absolute Auto 0.9 10^3/uL (0.3-0.8); Monocytes Percent Auto 6.2 % (1.7-12.0); Neutrophils Percent Auto 72.7 % (43.0-75.0); Platelet Count 401 10^3/uL (150-450); Red Blood Count 4.47 10^6/uL (4.20-5.40); Red Cell Distribution Width 12.1 % (11.0-15.0); White Blood Count 15.1 10^3/uL (4.0-11.0)
[2023-11-27] MEDS: 0.9 % SODIUM CHLORIDE 1,000 ML 999 ML IV ×2 (03:13→04:52)
[2023-11-27] MEDS: ONDANSETRON PF 4 MG/2 ML VIAL IV ×2 (03:13→04:56)
[2023-11-27] MEDS: HYDROMORPHONE HCL 1 MG/ML CARTRIDGE IVP (03:13)
[2023-11-27 03:23] LABS: Alanine Aminotransferase 22 U/L (14-59); Albumin Globulin Ratio 1.1; Albumin Level 4.4 g/dL (3.4-5.0); Alkaline Phosphatase 85 U/L (46-116); Anion Gap 19.9; Aspartate Amino Transferase 12 U/L (15-37); BUN Creatinine Ratio 18.9; Bilirubin Total 0.5 mg/dL (0.2-1.0); Calcium 10.8 mg/dL (8.5-10.1); Carbon Dioxide 22.9 mmol/L (21.0-32.0); Chloride 101 mmol/L (98-107); Estimated GFR (African America >60 (>=60); Estimated GFR (Non-African Ame 58 (>=60); Globulin 3.9 g/dL; Glucose 116 mg/dL (74-106); Potassium 3.8 mmol/L (3.5-5.1); Sodium 140 mmol/L (136-145); Total Protein 8.3 g/dL (6.4-8.2)
[2023-11-27 03:25] LABS: Troponin I High Sensitivity 12.1 pg/mL (4.0-51.3)
[2023-11-27 03:30] LABS: Lactate/Lactic Acid 2.9 mmol/L (0.4-2.0)
--- NOTE | 2023-11-27 04:24 | US_ITS ---
The [address] [address] Patient Name: SILVER ALCOCER MRN: [id number] date: 1995 Sex: F Assigned Patient Location: ED.MAIN Current Patient Location: Accession/Order Number: [id number] Exam Date: 11/27/2023 07:00 Report Date: 11/27/2023 07:47 At the request of: MIKE KERR Procedure: US right upper quadrant EXAM: US right upper quadrant HISTORY: Biliary colic; technologist notes state right upper quadrant abdominal pain and nausea/vomiting for one month. COMPARISON: Right upper quadrant abdomen ultrasound 11/08/[address] abdomen/pelvis dated 11/02/2023. TECHNIQUE: Routine ultrasound right upper quadrant abdomen. FINDINGS: Pancreas: Unremarkable. Liver: Rolando's lobe configuration, a variant of normal with the right lobe measuring 18.4 cm in longitudinal dimension. There is a 0.9 x 1.0 x 1.2 cm hyperechoic lesion within the right lobe of the liver which most commonly is a hemangioma. There is normal flow within the main portal vein. Gallbladder: There are numerous small gallstones within the dependent portion of the gallbladder and also sludge within the gallbladder. There is mild thickening of the gallbladder wall measuring 0.3 to 0.4 cm. There is no pericholecystic fluid and the histotechnologist states that there is no sonographic García's sign. Common duct: Borderline prominent measuring 0.6 to 0.7 cm in transverse dimension. Right kidney: Normal size measuring 11.1 x 4.5 x 4.7 cm. There are hyperechoic renal pyramids which can be associated with nephrocalcinosis. Ascites: None. US/US right upper quadrant IMPRESSION: Cholelithiasis. The gallbladder wall is borderline thickened measuring 0.3 to 0.4 cm. There is no pericholecystic fluid within the histotechnologist states that there is no sonographic García's sign. There is borderline prominence of the common duct measuring 0.6 to 0.7 cm in transverse dimension. Correlate with clinical findings. Rolando's lobe configuration of the liver, a variant of normal. There is a 0.9 x 1.0 x 1.2 cm hyperechoic lesion within the right lobe of the liver which most commonly is a hemangioma. The right renal pyramids are hyperechoic which can be associated with nephrocalcinosis. Electronically authenticated by: DAMIAN COOL Date: 11/27/2023 07:47
[2023-11-27] MEDS: HYDROMORPHONE HCL 1 MG/ML CARTRIDGE 0.5 MG IVP (04:56)
[2023-11-27 05:59] LABS: Lactate/Lactic Acid 0.8 mmol/L (0.4-2.0)
[2023-11-27 06:46] VITALS: BP 128/71; PULSE 79; O2SAT 100
--- NOTE | 2023-11-27 08:41 | ED_ITS ---
HPI - Abdominal Pain General Chief Complaint: Abdominal Pain Stated Complaint: ABD PAIN vomiting Time Seen by Provider: 11/27/23 02:28 Source: patient Mode of arrival: walk-in Limitations: no limitations History of Present Illness HPI narrative: The patient was initially seen by Dr. Stoll and signed out to me after discussing the case with him. Please see his full history and physical exam. Related Data Home Medications ?Medication ?Instructions ?Recorded ?Confirmed hydrocodone 5 mg-acetaminophen 325 tab 11/27/23 mg tablet ondansetron HCl 4 mg tablet mg 11/27/23 Previous Rx's ?Medication ?Instructions ?Recorded hydrocodone 5 mg-acetaminophen 325 1 tab PO Q6H PRN pain 5 days #20 11/27/23 mg tablet tabs ondansetron 4 mg disintegrating 4 mg PO Q6H PRN nausea and 11/27/23 tablet vomiting #20 tabs Allergies Allergy/AdvReac Type Severity Reaction Status Date / Time amoxicillin AdvReac Mild Hives Verified 11/27/23 02:23 Exam Constitutional Vital Signs, click to edit/add: Last Vital Signs Temp 98.4 F 11/27/23 02:20 Pulse 79 11/27/23 06:46 Resp 18 11/27/23 06:46 BP 128/71 11/27/23 06:46 Pulse Ox 100 11/27/23 06:46 Course Vital Signs Vital signs: Vital Signs Temperature 98.4 F 11/27/23 02:20 Pulse Rate 86 11/27/23 02:20 Respiratory Rate 18 11/27/23 02:20 Blood Pressure 169/105 H 11/27/23 02:20 Pulse Oximetry 99 11/27/23 02:20 Temperature 98.4 F 11/27/23 02:20 Pulse Rate 79 11/27/23 06:46 Respiratory Rate 18 11/27/23 06:46 Blood Pressure 128/71 11/27/23 06:46 Pulse Oximetry 100 11/27/23 06:46 MDM - Abdominal Pain MDM Narrative Medical decision making narrative: Gallbladder ultrasound shows stones and gallbladder wall minimally thickened. No pericholecystic fluid. The patient is completely asymptomatic now. LFTs and lipase are normal. WBC 15,000. At this point I do not clinically suspect acute cholecystitis. Case discussed with her surgeon Dr. Ibarra's and the patient is discharged home with pain medication. Patient is comfortable with that plan. Treatment diagnosis and follow-up were discussed with the patient. She is scheduled for surgery on December 12. Differential Diagnosis Differential diagnosis: Likely abdominal pain, constipation, gastroenteritis, pancreatitis and other (Acute cholecystitis) Lab Data Attestation: I reviewed the patient's lab results. Labs: Lab Results 11/27/23 11/27/23 Range/Units 02:58 05:37 WBC 15.1 H (4.0-11.0) 10^3/uL RBC 4.47 (4.20-5.40) 10^6/uL Hgb 13.1 (12.0-16.0) g/dL Hct 38.5 (36.0-48.0) % MCV 86.1 (81.0-99.0) fL MCH 29.3 (26.7-34.0) pg MCHC 34.0 (29.9-35.2) g/dL RDW 12.1 (11.0-15.0) % Plt Count 401 (150-450) 10^3/uL MPV 9.6 (9.5-13.5) fL Neut % (Auto) 72.7 (43.0-75.0) % Lymph % (Auto) 19.9 L (20.5-60.0) % Dougherty % (Auto) 6.2 (1.7-12.0) % Eos % (Auto) 0.6 L (0.9-7.0) % Baso % (Auto) 0.3 (0.2-2.0) % Neut # (Auto) 11.0 H (1.4-6.5) 10^3/uL Lymph # (Auto) 3.0 (1.2-3.8) 10^3/uL Dougherty # (Auto) 0.9 H (0.3-0.8) 10^3/uL Eos # (Auto) 0.1 (0.0-0.7) 10^3/uL Baso # (Auto) 0.1 (0.0-0.1) 10^3/uL Abs Immat Gran (auto) 0.05 H (0.00-0.03) 10^3/uL Imm/Tot Granulo (auto) 0.3 (0.0-0.5) % Sodium 140 (136-145) mmol/L Potassium 3.8 (3.5-5.1) mmol/L Chloride 101 (98-107) mmol/L Carbon Dioxide 22.9 (21.0-32.0) mmol/L Anion Gap 19.9 BUN 21.0 H (7.0-18.0) mg/dL Creatinine 1.11 H (0.55-1.02) mg/dL Est GFR ( Amer) >60 (>=60) Est GFR (Non-Af Amer) 58 L (>=60) BUN/Creatinine Ratio 18.9 Glucose 116 H (74-106) mg/dL Lactate 2.9 H* 0.8 (0.4-2.0) mmol/L Calcium 10.8 H (8.5-10.1) mg/dL Total Bilirubin 0.5 (0.2-1.0) mg/dL AST 12 L (15-37) U/L ALT 22 (14-59) U/L Alkaline Phosphatase 85 (46-116) U/L Troponin I High Sens 12.1 (4.0-51.3) pg/mL Total Protein 8.3 H (6.4-8.2) g/dL Albumin 4.4 (3.4-5.0) g/dL Globulin 3.9 g/dL Albumin/Globulin Ratio 1.1 Lipase 74.0 (16.0-77.0) U/L Imaging Data Gallbladder ultrasound: Radiologist's impression: ITS Impressions Upper Quadrant Ultrasound 11/27/23 04:24 IMPRESSION: Cholelithiasis. The gallbladder wall is borderline thickened measuring 0.3 to 0.4 cm. There is no pericholecystic fluid within the echocardiography radiology technologist states that there is no sonographic García's sign. There is borderline prominence of the common duct measuring 0.6 to 0.7 cm in transverse dimension. Correlate with clinical findings. Rolando's lobe configuration of the liver, a variant of normal. There is a 0.9 x 1.0 x 1.2 cm hyperechoic lesion within the right lobe of the liver which most commonly is a hemangioma. The right renal pyramids are hyperechoic which can be associated with nephrocalcinosis. Electronically authenticated by: DAMIAN COOL Date: 11/27/2023 07:47 Discharge Plan Discharge Stand Alone Forms: Portal Instructions Chief Complaint: Abdominal Pain Clinical Impression: Biliary colic Patient Disposition: Home, Self-Care Time of Disposition Decision: 08:37 Condition: Good Mode of Transportation: Private Vehicle Prescriptions / Home Meds: New hydrocodone-acetaminophen 5-325 mg tablet 1 tab PO Q6H PRN (Reason: pain) 5 Days Qty: 20 0RF ondansetron 4 mg tablet,disintegrating 4 mg PO Q6H PRN (Reason: nausea and vomiting) Qty: 20 0RF No Action hydrocodone-acetaminophen 5-325 mg tablet ondansetron HCl 4 mg tablet Print Language: Bhutanese Instructions: Biliary Colic (ED) Referrals: Physician,Non-Staff, MD [Primary Care Provider] - 1 week
== END 2023-11-27 09:30 | disposition home or self-care (01) ==
PROVIDERS: Internal Medicine; Emergency Provider Emergency Medicine
DX: K80.70 Calculus of gallbladder and bile duct without cholecystitis without obstruction (principal); Z79.899 Other long term (current) drug therapy
CPT/HCPCS: 36415; 76705; 80053; 83605; 83690; 84484; 85025; 96361; 96374; 96375; 96376; 99284; J1170

== ENCOUNTER 2023-12-01 08:04 | Emergency (ER) | payer BC, SELFPAY ==
[2023-12-01 08:10] VITALS: BP 166/108; PULSE 83; TEMP 36.5; O2SAT 98; BMI 32.1
--- OUTSIDE RECORDS SUMMARY | 2023-12-01 08:20 | XMS_ITS | CCD ---
Author Organization [facility] Care Team Providers Care Lehr Cutter Name Role Phone Jeremiah, Vikas Unavailable Unavailable [...] KARASIK ., DR RASHID Consulting Unavailabl e ZIEBER, DR YOMAIRA De Jesus Consulting Unavailable MISC, DR ELAINE Primary Care Unavailable PAY ., DR RUSSO Admitting Unavailable PAY ., DR RUSSO Attending Unavailable PAY ., DR RUSSO Consulting Unavailable HAY ., DR PARR Admitting Unavailable HAY ., DR PARR Attending Unavailable MISC, DR ELAINE Primary Care Unavailable HAY ., DR PARR Consulting Unavailable JENNIFER, DR JOSEPH Admitting Unavailable JENNIFER, DR JOSEPH Attending Unavailable AICHHOLZ, FLOOR TILING PROFESSIONAL MIA Primary Care Unavailable KARASIK ., DR RASHID Admitting Unavailabl e KARASIK ., DR RASHID Attending Unavailabl e REQUEST, NONE LISTED Primary Care Unavaila ble KARASIK ., DR RASHID Consulting Unavailabl e KARASIK ., DR RASHID Admitting Unavailabl e NEWTON ., DR RASHID Attending Unavailabl e [facility] [place] DR ELAINE Primary Care Unavailable NE[place]ON ., DR RASHID Consulting Unavailisabel OLSON, DR CALDERON Young Consulting Unavailable Nataprjean carlosra, DO Diana Attending Provider NO FAMILY, PHYSICIAN Primary Care Provider Unava ilable Natnaomie, DO Diana Admit Provider MUNDO Ely Primary Care Provider MD Lilia Huber Attending Provider [phone] NO FAMILY, PHYSICIAN Primary Care Unavailable Natnelsonra, Diana Admitting Unavailable Sebastian, Diana Attending Unavailable Celestina Ely Primary Care Unavailable Lilia Huber Admitting Unavailable Lilia Huber Attending Unavailable Lylara, Diana Admitting Unavailable Lylara, Diana Attending Unavailable Celestina Ely Primary Care Unavailable NO PCP, NO PCP Primary Care Unavailable HUI POLLOCK Attending Unavailable NO PCP, NO PCP Primary Care Unavailable Allergies Allergy Classification Reported Allergen(s) Allergy Type Date of Onset Reaction(s) Facility Penicillins (antibiotic) (1 source) Amoxicillin Drug [facility]ergy [facility] Work Phone: (10 sources) Amoxicillin; Translations: [Amoxicillin] Drug Allergy 10-12-2015 [facility] Medications Current Medications Medication Drug Class(es) [...] Q6H 60 February 23, 2023 12:00am Pnv,Calcium 68-Pwyr-Pkbwj Acid (M- Plus) 27 mg iron- 1 mg tablet (2 sources) Start: 02-23-2023 Pnv,Calcium 04-Kfdx-Katis Acid (M-Liza Plus) 27 mg iron- 1 [...] 07-14-2022 Episodic Other aftercare (1 source) [facility] [place] [facility] (current) drug therapy; Translations: [[facility] TECH CURRENT DRUG THERAPY] Onset: 07-12-2022 Episodic Other [...] on 02-25-2023 ALT [Catalytic activity/Vol] 12 U/L 7-52 [facility] Albumin [Mass/volume] in Ser um or Plasma by Bromocresol green (BCG) dye binding methoOrdered By: Mitra Degroot on 02-25-2023 Albumin BCG dye [Mass/Vol] 3.4 g/dL 3.5-5.7 [facility] Alkaline phosphatase [Enzyma tic activity/volume] in Serum or PlasmaOrdered By: Mitra Degroot on 02-25-2023 ALP [Catalytic activity/Vol] 107 U/L 34-104 [facility] Aspartate aminotransferase [ Enzymatic activity/volume] in Serum or PlasmaOrdered By: Mitra Degroot on 02-25-2023 AST [Catalytic activity/Vol] 11 U/L 13-39 [facility] Basophils Auto (Bld) [#/Vol] Ordered By: Mitra Degroot on 02-25-2023 Basophils (Bld) [#/Vol] 0.1 10*3/uL 0.0-0.2 [facility] Basophils/100 WBC Auto (Bld) Ordered By: Mitra Degroot on 02-25-2023 Basophils/100 WBC (Bld) 0.4 % . [facility] Bilirubin.total [Mass/volume ] in Serum or PlasmaOrdered By: Mitra Degroot on 02-25-2023 Bilirubin [Mass/Vol] 0.3 mg/dL 0.3-1.0 [facility] Calcium [Mass/volume] in Ser um or PlasmaOrdered By: Mitra Degroot on 02-25-2023 Calcium [Mass/Vol] 11.3 mg/dL 8.6-10.3 [facility] Carbon dioxide, total [Moles /volume] in Serum or PlasmaOrdered By: Mitra Degroot on 02-25-2023 CO2 [Moles/Vol] 26.0 mmol/L 21.0-31.0 [facility] Chloride [Moles/volume] in S ophelia or PlasmaOrdered By: Mitra Degroot on 02-25-2023 Chloride [Moles/Vol] 106 mmol/L 98-107 [facility] Complete Blood Count Auto Di ffon 02-25-2023 Basophils (Bld) [#/Vol] 0.1 10*3/uL Normal 0.0-0.2 [facility] Comment on above: Result Comment: PERF ORMED BY: [place] [address] PATHOLOGIST [employer] TECHNICIAN FLORY JAIN M.D. Performed By: #### C MP, CBC #### [address] Basophils/100 WBC (Bld) 0.4 % Normal . [facility] Comment on above: Performed By: #### C MP, CBC #### [address] Eosinophils (Bld) [#/Vol] 0.0 10*3/uL Normal 0.0-0.45 [facility] Comment on above: Performed By: #### C MP, CBC #### [address] Eosinophils/100 WBC (Bld) 0.3 % Normal . [facility] Comment on above: Performed By: #### C MP, CBC #### [address] Erythrocyte distribution width (RBC) [Ratio] 14.1 % Normal 11.9-15.3 [facility] Comment on above: Performed By: #### C MP, CBC #### [address] Hematocrit (Bld) [Volume fraction] 34.4 % Normal 34.0-46.4 [facility] Comment on above: Performed By: #### C MP, CBC #### [place] [address] [place] Hemoglobin (Bld) [Mass/Vol] 11.5 g/dL Low 11.8-15.4 [facility] Comment on above: Performed By: #### C MP, CBC #### [facility] [address] [place] [address] [place] Lymphocytes (Bld) [#/Vol] 2.3 10*3/uL Normal 1.00-4.8 [facility] Comment on above: Performed By: #### C MP, CBC #### [place] [address] [place] Lymphocytes/100 WBC (Bld) 14.7 % Normal . [facility] Comment on above: Performed By: #### C MP, CBC #### [address] MCH (RBC) [Entitic mass] 29.9 pg Normal 24.7-34.3 [facility] Comment on above: Performed By: #### C MP, CBC #### [address] MCV (RBC) [Entitic vol] 90.1 fL Normal 80-100 [facility] Comment on above: Performed By: #### C MP, CBC #### [address] Mean Corpuscular HGB Conc 33.2 g/dL Normal 32.0-35.0 [facility] Comment on above: Performed By: #### C MP, CBC #### [place] [address] [place] Monocytes (Bld) [#/Vol] 1.0 10*3/uL High 0.0-0.8 [facility] Comment on above: Performed By: #### C MP, CBC #### [address] Monocytes/100 WBC (Bld) 6.6 % Normal . [facility] Comment on above: Performed By: #### C MP, CBC #### [place] [address] [place] Neutrophils (Bld) [#/Vol] 12.2 10*3/uL High 1.8-7.7 [facility] Comment on above: Performed By: #### C MP, CBC #### [address] Neutrophils/100 WBC (Bld) 78.0 % Normal . [facility] Comment on above: Performed By: #### C MP, CBC #### [place] [id number] [place] NRBC% 0.0 /100{WBC} Normal 0-0.5 [facility] Comment on above: Performed By: #### C MP, CBC #### [address] Platelet mean volume (Bld) [Entitic vol] 7.8 fL Normal 6.3-10.7 [facility] Comment on above: Performed By: #### C MP, CBC #### [address] Platelets (Bld) [#/Vol] 348 10*3/uL Normal 150-450 [facility] Comment on above: Performed By: #### C MP, CBC #### [address] RBC (Bld) [#/Vol] 3.82 10*6/uL Normal 3.60-5.00 [facility] Comment on above: Performed By: #### C MP, CBC #### [address] WBC (Bld) [#/Vol] 15.7 10*3/uL High 3.8-11.6 [facility] Comment on above: Performed By: #### C MP, CBC #### [address] Comprehensive Metabolic Pane namrata 02-25-2023 Albumin [Mass/Vol] 3.4 g/dL Low 3.5-5.7 [facility] Comment on above: Performed By: #### C MP, CBC #### [address] Albumin/Globulin [Mass ratio] 1.0 {ratio} Normal [facility] Comment on above: Performed By: #### C MP, CBC #### [address] ALP [Catalytic activity/Vol] 107 U/L High 34-104 [facility] Comment on above: Performed By: #### C MP, CBC #### [address] [place] [address] [place] ALT [Catalytic activity/Vol] 12 U/L Normal 7-52 [facility] Comment on above: Performed By: #### C MP, CBC #### [address] Anion gap [Moles/Vol] 9.5 mmol/L Normal 6.0-15.0 [facility] Comment on above: Performed By: #### C MP, CBC #### [address] AST [Catalytic activity/Vol] 11 U/L Low 13-39 [facility] Comment on above: Performed By: #### C MP, CBC #### [address] Bilirubin [Mass/Vol] 0.3 mg/dL Normal 0.3-1.0 [facility] Comment on above: Performed By: #### C MP, CBC #### [address] Calcium [Mass/Vol] 11.3 mg/dL High 8.6-10.3 [facility] Comment on above: Performed By: #### C MP, CBC #### [address] Chloride [Moles/Vol] 106 mmol/L Normal 98-107 [facility] Comment on above: Performed By: #### C MP, CBC #### [address] CO2 [Moles/Vol] 26.0 mmol/L Normal 21.0-31.0 [facility] Comment on above: Performed By: #### C MP, CBC #### [address] Creatinine [Mass/Vol] 0.99 mg/dL Normal 0.60-1.20 [facility] Comment on above: Performed By: #### C MP, CBC #### [place] [address] [place] Creatinine Clr Calc Pharmacy 81.19 Normal [facility] Comment on above: Result Comment: PERF ORMED BY: [place] [address] PATHOLOGIST [employer] TECHNICIAN FLORY JAIN M.D. Performed By: #### C MP, CBC #### [place] [address] [place] GFR/1.73 sq M.predicted MDRD (S/P/Bld) [Vol rate/Area] mL/min/{1.73_m2} [facility] Comment on above: Performed By: #### C MP, CBC #### [address] Globulin (S) [Mass/Vol] 3.3 g/dL [facility] Comment on above: Performed By: #### C MP, CBC #### [address] Glucose [Mass/Vol] 73 mg/dL Normal 70-100 [facility] Comment on above: Result Comment: [facility] Glucose Reference Range is dependent on time and content of last meal. Glucose of more than 200 mg/dL in a nonstressed, ambulatory subject supports the diagnosis of Diabetes Mellitus. ADA recommended reference range Performed By: #### C MP, CBC #### [place] [address] [place] Potassium [Moles/Vol] 4.5 mmol/L Normal 3.5-5.1 [facility] Comment on above: Performed By: #### C MP, CBC #### [place] [address] [place] Protein [Mass/Vol] 6.7 g/dL Normal 6.4-8.9 [facility] Comment on above: Performed By: #### C MP, CBC #### [place] [address] [place] Sodium [Moles/Vol] 137 mmol/L Normal 136-145 [facility] Comment on above: Performed By: #### C MP, CBC #### [facility] [address] Urea nitrogen [Mass/Vol] 12 mg/dL Normal 7-25 [facility] Comment on above: Performed By: #### C MP, CBC #### [facility] [address] Creatinine [Mass/volume] in Serum or PlasmaOrdered By: Mitra Degroot on 02-25-2023 Creatinine [Mass/Vol] 0.99 mg/dL 0.60-1.20 [facility] Eosinophils Auto (Bld) [#/Vo l]Ordered By: Mitra Degroot on 02-25-2023 Eosinophils (Bld) [#/Vol] 0.0 10*3/uL 0.0-0.45 [facility] Eosinophils/100 WBC Auto (Bl d)Ordered By: Mitra Degroot on 02-25-2023 Eosinophils/100 WBC (Bld) 0.3 % . [facility] Erythrocyte distribution wid th Auto (RBC) [Ratio]Ordered By: Mitra Degroot on 02-25-2023 Erythrocyte distribution width (RBC) [Ratio] 14.1 % 11.9-15.3 [facility] Globulin Calc (S) [Mass/Vol] Ordered By: Mitra Degroot on 02-25-2023 Globulin (S) [Mass/Vol] 3.3 g/dL [facility] Glucose [Mass/volume] in Ser um or PlasmaOrdered By: Mitra Degroot on 02-25-2023 Glucose [Mass/Vol] 73 mg/dL 70-100 [facility] Comment on above: ADA recommended refe rence rangeRandom Glucose Reference Range is dependent on time and content of last meal. Glucose of more than 200 mg/dL in a nonstressed, ambulatory subject supports the diagnosis of Diabetes Mellitus. Hematocrit Auto (Bld) [Volum e fraction]Ordered By: Mitra Degroot on 02-25-2023 Hematocrit (Bld) [Volume fraction] 34.4 % 34.0-46.4 [facility] Hemoglobin [Mass/volume] in BloodOrdered By: Mitra Degroot on 02-25-2023 Hemoglobin (Bld) [Mass/Vol] 11.5 g/dL 11.8-15.4 [facility] Leukocytes [#/volume] correc rojas for nucleated erythrocytes in Blood by Automated counOrdered By: Mitra Degroot on 02-25-2023 WBC corrected for nucl RBC Auto (Bld) [#/Vol] 15.7 10*3/uL 3.8-11.6 [facility] Lymphocytes Auto (Bld) [#/Vo l]Ordered By: Mitra Degroot on 02-25-2023 Lymphocytes (Bld) [#/Vol] 2.3 10*3/uL 1.00-4.8 [facility] Lymphocytes/100 WBC Auto (Bl d)Ordered By: Mitra Degroot on 02-25-2023 Lymphocytes/100 WBC (Bld) 14.7 % . [facility] MCH Auto (RBC) [Entitic mass ]Ordered By: Mitra Degroot on 02-25-2023 MCH (RBC) [Entitic mass] 29.9 pg 24.7-34.3 [facility] MCHC Auto (RBC) [Mass/Vol]Or dered By: Mitra Degroot on 02-25-2023 MCHC (RBC) [Mass/Vol] 33.2 g/dL 32.0-35.0 [facility] MCV Auto (RBC) [Entitic vol] Ordered By: Mitra Degroot on 02-25-2023 MCV (RBC) [Entitic vol] 90.1 fL 80-100 [facility] Monocytes Auto (Bld) [#/Vol] Ordered By: Mitra Degroot on 02-25-2023 Monocytes (Bld) [#/Vol] 1.0 10*3/uL 0.0-0.8 [facility] Monocytes/100 WBC Auto (Bld) Ordered By: Mitra Degroot on 02-25-2023 Monocytes/100 WBC (Bld) 6.6 % . [facility] Neutrophils Auto (Bld) [#/Vo l]Ordered By: Mitra Degroot on 02-25-2023 Neutrophils (Bld) [#/Vol] 12.2 10*3/uL 1.8-7.7 [facility] Neutrophils/100 WBC Auto (Bl d)Ordered By: Mitra Degroot on 02-25-2023 Neutrophils/100 WBC (Bld) 78.0 % . [facility] No Panel InformationOrdered By: Mitra Degroot on 02-25-2023 Estimated GFR (CKD-EPI) > 60.0 mL/Min [facility] Creatinine Clearance (Chem 81.19 [facility] Nucleated erythrocytes [Pres ence] in Blood by Automated countOrdered By: Mitra Degroot on 02-25-2023 Nucleated RBC Auto Ql (Bld) 0.0 /100{WBC} 0-0.5 [facility] Platelet mean volume Auto (B ld) [Entitic vol]Ordered By: Mitra Degroot on 02-25-2023 Platelet mean volume (Bld) [Entitic vol] 7.8 fL 6.3-10.7 [facility] Platelets Auto (Bld) [#/Vol] Ordered By: Mitra Degroot on 02-25-2023 Platelets (Bld) [#/Vol] 348 10*3/uL 150-450 [facility] Potassium [Moles/volume] in Serum or PlasmaOrdered By: Mitra Degroot on 02-25-2023 Potassium [Moles/Vol] 4.5 mmol/L 3.5-5.1 [facility] Protein [Mass/volume] in Ser um or PlasmaOrdered By: Mitra Degroot on 02-25-2023 Protein [Mass/Vol] 6.7 g/dL 6.4-8.9 [facility] RBC Auto (Bld) [#/Vol]Ordere d By: Mitra Degroot on 02-25-2023 RBC (Bld) [#/Vol] 3.82 10*6/uL 3.60-5.00 [facility] Serum or plasma albumin/glob ulin mass ratioOrdered By: Mitra Degroot on 02-25-2023 Albumin/Globulin [Mass ratio] 1.0 {ratio} [facility] Serum or plasma anion gap de terminationOrdered By: Mitra Degroot on 02-25-2023 Anion gap [Moles/Vol] 9.5 mmol/L 6.0-15.0 [facility] Sodium [Moles/volume] in Ser um or PlasmaOrdered By: Mitra Degroot on 02-25-2023 Sodium [Moles/Vol] 137 mmol/L 136-145 [facility] Urea nitrogen [Mass/volume] in Serum or PlasmaOrdered By: Mitra Degroot on 02-25-2023 Urea nitrogen [Mass/Vol] 12 mg/dL 7-25 [facility] WBC Auto (Bld) [#/Vol]Ordere d By: Mitra Degroot on 02-25-2023 WBC (Bld) [#/Vol] 15.7 10*3/uL 3.8-11.6 [facility] Complete Blood Count Auto Di ffon 02-24-2023 Basophils (Bld) [#/Vol] 0.0 10*3/uL Normal 0.0-0.2 [facility] Comment on above: Result Comment: PERF ORMED BY: [facility] [address] [place] [address] PATHOLOGIST [employer] TECHNICIAN FLORY JAIN M.D. Performed By: #### R [place] W RFX #### [facility] , Basophils/100 WBC (Bld) 0.2 % Normal . [facility] Comment on above: Performed By: #### R UT W RFX #### [facility] , Eosinophils (Bld) [#/Vol] 0.0 10*3/uL Normal 0.0-0.45 [facility] Comment on above: Performed By: #### R UT W RFX #### [facility] , Eosinophils/100 WBC (Bld) 0.0 % Normal . [facility] Comment on above: Performed By: #### R UT W RFX #### [facility] , Erythrocyte distribution width (RBC) [Ratio] 13.8 % Normal 11.9-15.3 [facility] Comment on above: Performed By: #### R UT W RFX #### [facility] , Hematocrit (Bld) [Volume fraction] 28.8 % Low 34.0-46.4 [facility] Comment on above: Performed By: #### R UT W RFX #### [facility] , Hemoglobin (Bld) [Mass/Vol] 9.9 g/dL Low 11.8-15.4 [facility] Comment on above: Performed By: #### R UT W RFX #### [facility] , Lymphocytes (Bld) [#/Vol] 3.1 10*3/uL Normal 1.00-4.8 [facility] Comment on above: Performed By: #### R UT W RFX #### [facility] , Lymphocytes/100 WBC (Bld) 15.8 % Normal . [facility] Comment on above: Performed By: #### R UT W RFX #### [facility] , MCH (RBC) [Entitic mass] 30.5 pg Normal 24.7-34.3 [facility] Comment on above: Performed By: #### R UT W RFX #### [facility] , MCV (RBC) [Entitic vol] 88.7 fL Normal 80-100 [facility] Comment on above: Performed By: #### R UT W RFX #### [facility] , Mean Corpuscular HGB Conc 34.4 g/dL Normal 32.0-35.0 [facility] Comment on above: Performed By: #### R UT W RFX #### [facility] , Monocytes (Bld) [#/Vol] 1.2 10*3/uL High 0.0-0.8 [facility] Comment on above: Performed By: #### R UT W RFX #### [facility] , Monocytes/100 WBC (Bld) 6.3 % Normal . [facility] Comment on above: Performed By: #### R UT W RFX #### [facility] , Neutrophils (Bld) [#/Vol] 15.1 10*3/uL High 1.8-7.7 [facility] Comment on above: Performed By: #### R UT W RFX #### [facility] , Neutrophils/100 WBC (Bld) 77.7 % Normal . [facility] Comment on above: Performed By: #### R UT W RFX #### [facility] , NRBC% 0.0 /100{WBC} Normal 0-0.5 [facility] Comment on above: Performed By: #### R UT W RFX #### [facility] , Platelet mean volume (Bld) [Entitic vol] 8.1 fL Normal 6.3-10.7 [facility] Comment on above: Performed By: #### R UT W RFX #### [facility] , Platelets (Bld) [#/Vol] 286 10*3/uL Normal 150-450 [facility] Comment on above: Performed By: #### R UT W RFX #### [facility] , RBC (Bld) [#/Vol] 3.24 10*6/uL Low 3.60-5.00 [facility] Comment on above: Performed By: #### R UT W RFX #### [facility] , WBC (Bld) [#/Vol] 19.4 10*3/uL High 3.8-11.6 [facility] Comment on above: Performed By: #### R UT W RFX #### [facility] , ABO/RH Typeon 02-23-2023 ABO and Rh group Nom (Bld) Blood group A Rh(D) positive Normal [facility] Comment on above: Result Comment: PERF ORMED BY: [facility] [place] [id number] PATHOLOGIST [employer] TECHNICIAN FLORY JAIN M.D. ABO/Rh Retypeon 02-23-2023 ABO/RH Recheck Result Positive Normal [facility] Comment on above: Result Comment: PERF ORMED BY: [facility] [address] [place] [address] PATHOLOGIST [employer] TECHNICIAN FLORY JAIN M.D. Amphetamine Screen Ql (U)Ord ered By: DIANA SORENSON on 02-23-2023 Amphetamines Ql (U) Negative Negative [facility] Automated erythrocytes count in urine sediment (number/area)Ordered By: DIANA SORENSON on 02-23-2023 RBC Auto (Urine sed) [#/Area] 3-4 [HPF] 0-4 [facility] Automated leukocytes count i n urine sediment (number/area)Ordered By: DIANA SORENSON on 02-23-2023 WBC Auto (Urine sed) [#/Area] 10-19 [HPF] 0-4 [facility] Automated urine hyaline cast s count (number/volume)Ordered By: DIANA SORENSON on 02-23-2023 Hyaline casts Auto (U) [#/Vol] None seen [LPF] 0-1 [facility] Barbiturates [Presence] in U rine by Screen methodOrdered By: DIANA SORENSON on 02-23-2023 Barbiturates Screen Ql (U) Negative Negative [facility] Benzodiazepines Screen Ql (U )Ordered By: DIANA SORENSON on 02-23-2023 Benzodiazepines Ql (U) Negative Negative [facility] Benzoylecgonine [Presence] i n Urine by Screen methodOrdered By: DIANA SORENSON on 02-23-2023 Benzoylecgonine Screen Ql (U) Negative Negative [facility] Bilirubin Test strip Ql (U)O rdered By: DIANA SORENSON on 02-23-2023 Bilirubin Ql (U) Negative Negative [facility] Casts typing in urine sedime nt by light microscopyOrdered By: DIANA SORENSON on 02-23-2023 Casts LM Nom (Urine sed) None seen [LPF] None Seen [facility] Color Auto (U)Ordered By: MO NA SEBASTIAN on 02-23-2023 Color (U) Yellow Yellow [facility] Complete Blood Count Auto Di ffon 02-23-2023 Basophils (Bld) [#/Vol] 0.0 10*3/uL Normal 0.0-0.2 [facility] Comment on above: Result Comment: PERF ORMED BY: [place] [address] PATHOLOGIST [employer] TECHNICIAN FLORY JAIN M.D. Performed By: #### C BC #### [address] Basophils/100 WBC (Bld) 0.4 % Normal . [facility] Comment on above: Performed By: #### C BC #### [address] Eosinophils (Bld) [#/Vol] 0.0 10*3/uL Normal 0.0-0.45 [facility] Comment on above: Performed By: #### C BC #### [address] Eosinophils/100 WBC (Bld) 0.4 % Normal . [facility] Comment on above: Performed By: #### C BC #### [address] Erythrocyte distribution width (RBC) [Ratio] 14.1 % Normal 11.9-15.3 [facility] Comment on above: Performed By: #### C BC #### [address] Hematocrit (Bld) [Volume fraction] 34.7 % Normal 34.0-46.4 [facility] Comment on above: Performed By: #### C BC #### [place] [address] [place] Hemoglobin (Bld) [Mass/Vol] 12.0 g/dL Normal 11.8-15.4 [facility] Comment on above: Performed By: #### C BC #### [address] Lymphocytes (Bld) [#/Vol] 2.9 10*3/uL Normal 1.00-4.8 [facility] Comment on above: Performed By: #### C BC #### [address] Lymphocytes/100 WBC (Bld) 23.1 % Normal . [facility] Comment on above: Performed By: #### C BC #### [address] MCH (RBC) [Entitic mass] 30.2 pg Normal 24.7-34.3 [facility] Comment on above: Performed By: #### C BC #### [address] MCV (RBC) [Entitic vol] 87.6 fL Normal 80-100 [facility] Comment on above: Performed By: #### C BC #### [address] Mean Corpuscular HGB Conc 34.5 g/dL Normal 32.0-35.0 [facility] Comment on above: Performed By: #### C BC #### [address] Monocytes (Bld) [#/Vol] 0.7 10*3/uL Normal 0.0-0.8 [facility] Comment on above: Performed By: #### C BC #### [address] Monocytes/100 WBC (Bld) 5.5 % Normal . [facility] Comment on above: Performed By: #### C BC #### [address] Neutrophils (Bld) [#/Vol] 9.0 10*3/uL High 1.8-7.7 [facility] Comment on above: Performed By: #### C BC #### [address] Neutrophils/100 WBC (Bld) 70.6 % Normal . [facility] Comment on above: Performed By: #### C BC #### [address] NRBC% 0.0 /100{WBC} Normal 0-0.5 [facility] Comment on above: Performed By: #### C BC #### [address] Platelet mean volume (Bld) [Entitic vol] 8.1 fL Normal 6.3-10.7 [facility] Comment on above: Performed By: #### C BC #### [address] Platelets (Bld) [#/Vol] 331 10*3/uL Normal 150-450 [facility] Comment on above: Performed By: #### C BC #### [address] RBC (Bld) [#/Vol] 3.96 10*6/uL Normal 3.60-5.00 [facility] Comment on above: Performed By: #### C BC #### [address] WBC (Bld) [#/Vol] 12.7 10*3/uL High 3.8-11.6 [facility] Comment on above: Performed By: #### C BC #### [address] Cord Blood Gason 02-23-2023 Cord Arterial Blood Total CO2 25.1 mmol/L Normal 23.0-27.0 [facility] Comment on above: Performed By: #### C ORDBG #### Point of Care testing , Cord Blood Base Excess -0.3 mmol/L Normal -3.0-3.0 [facility] Comment on above: Performed By: #### C ORDBG #### Point of Care testing , Cord Blood Capillary PO2 20.1 mm[Hg] Off scale low 90.0-100.0 [facility] Comment on above: Performed By: #### C ORDBG #### Point of Care testing , Cord Blood Frac Inspired O2 21 % Normal [facility] Comment on above: Performed By: #### C ORDBG #### Point of Care testing , Cord Blood HCO3 23.9 mmol/L Normal 23.0-29.0 [facility] Comment on above: Performed By: #### C ORDBG #### Point of Care testing , Cord Blood Oxygen Content 5.1 mmol/L Low 6.6-9.7 [facility] Comment on above: Performed By: #### C ORDBG #### Point of Care testing , Cord Blood Oxygen Sat 54.3 % Low 95.0-99.0 [facility] Comment on above: Performed By: #### C ORDBG #### Point of Care testing , Cord Blood PCO2 38.2 mm[Hg] Normal 35.0-45.0 [facility] Comment on above: Performed By: #### C ORDBG #### Point of Care testing , Cord Blood pH 7.42 Normal 7.35-7.45 [facility] Comment on above: Performed By: #### C ORDBG #### Point of Care testing , Respiratory Critical Normal [facility] Comment on above: Result Comment: Crit ical Value called on: 02/23/2023 at 14:53 PERFORMED BY: [place] [address] PATHOLOGIST [employer] TECHNICIAN FLORY JAIN M.D. Performed By: #### C ORDBG #### Point of Care testing , VBG Draw Site Umbilical Cord Normal [facility] Comment on above: Performed By: #### C ORDBG #### Point of Care testing , Dipstick and Microscopicon 0 02-23-2023 Appearance (U) Cloudy Critically abnormal Clear [facility] Comment on above: Order Comment: Name Collection Type:: Clean-Voided Midstream Performed By: #### A FEMI ONEAL OBUDS #### [facility] [address] [place] [address] [place] Bacteria,Urine 2+ High None Seen [facility] Comment on above: Order Comment: Name Collection Type:: Clean-Voided Midstream Performed By: #### A FEMI ONEAL OBUDS #### [facility] [address] [place] [address] [place] Bilirubin,Urine Negative Normal Negative [facility] Comment on above: Order Comment: Name Collection Type:: Clean-Voided Midstream Performed By: #### A DDONUAPLUS, CUU, OBUDS #### [facility] [address] [place] [address] [place] Color (U) Yellow Normal Yellow [facility] Comment on above: Order Comment: Name Collection Type:: Clean-Voided Midstream Performed By: #### A DDONUAPLUS, CUU, OBUDS #### [facility] [address] [place] [address] Glucose Ql (U) Normal Normal Normal [facility] Comment on above: Order Comment: Name Collection Type:: Clean-Voided Midstream Performed By: #### A DDONUAPLUS, CUU, OBUDS #### [facility] [address] [place] [address] [place] Hyaline Casts,Urine None Seen Normal 0-1 [facility] Comment on above: Order Comment: Name Collection Type:: Clean-Voided Midstream Performed By: #### A DDONUAPLUS, CUU, OBUDS #### [facility] [address] [place] [address] [place] Ketones Ql (U) Trace High Negative [facility] Comment on above: Order Comment: Name Collection Type:: Clean-Voided Midstream Performed By: #### A DDONUAPLUS, CUU, OBUDS #### [facility] [address] [place] [address] [place] Leukocyte esterase Test strip Ql (U) 2+ High Negative [facility] Comment on above: Order Comment: Name Collection Type:: Clean-Voided Midstream Performed By: #### A DDONUAPLUS, CUU, OBUDS #### [facility] [address] [place] [address] [place] Nitrite,Urine Negative Normal Negative [facility] Comment on above: Order Comment: Name Collection Type:: Clean-Voided Midstream Performed By: #### A DDONUAPLUS, CUU, OBUDS #### [address] Occult Blood,Urine Negative Normal Negative [facility] Comment on above: Order Comment: Name Collection Type:: Clean-Voided Midstream Result Comment: PERF ORMED BY: [place] [address] PATHOLOGIST [employer] TECHNICIAN FLORY JAIN M.D. Performed By: #### A DDONUAPLUS, CUU, OBUDS #### [address] Other Casts,Urine None Seen Normal None Seen [facility] Comment on above: Order Comment: Name Collection Type:: Clean-Voided Midstream Result Comment: PERF ORMED BY: [place] [address] PATHOLOGIST [employer] TECHNICIAN FLORY JAIN M.D. Performed By: #### A DDONUAPLUS, CUU, OBUDS #### [address] pH (U) 7.0 [pH] Normal 5.0-9.0 [facility] Comment on above: Order Comment: Name Collection Type:: Clean-Voided Midstream Performed By: #### A DDONUAPLUS, CUU, OBUDS #### [address] Protein (U) [Mass/Vol] 30 mg/dL High Negative [facility] Comment on above: Order Comment: Name Collection Type:: Clean-Voided Midstream Performed By: #### A DDONUAPLUS, CUU, OBUDS #### [place] [address] [place] RBC,Urine 3-4 Normal 0-4 [facility] Comment on above: Order Comment: Name Collection Type:: Clean-Voided Midstream Performed By: #### A DDONUAPLUS, CUU, OBUDS #### [place] [address] [place] Specificy [place],Urine 1.016 Normal 1.001-1.030 [facility] Comment on above: Order Comment: Name Collection Type:: Clean-Voided Midstream Performed By: #### A DDONUAPLUS, CUU, OBUDS #### [facility] [address] Squamous Epithelial Cell,Urine 10-19 High 0-2 [facility] Comment on above: Order Comment: Name Collection Type:: Clean-Voided Midstream Performed By: #### A DDONUAPLUS, CUU, OBUDS #### [facility] [address] [place] [address] Urobilinogen,Urine Normal Normal Normal [facility] Comment on above: Order Comment: Name Collection Type:: Clean-Voided Midstream Performed By: #### A DDONUAPLUS, CUU, OBUDS #### [facility] [address] [place] [address] WBC,Urine 10-19 High 0-4 [facility] Comment on above: Order Comment: Name Collection Type:: Clean-Voided Midstream Performed By: #### A DDONUAPLUS, CUU, OBUDS #### [facility] [address] [place] [address] Ketones Auto test strip (U) [Mass/Vol]Ordered By: DIANA SORENSON on 02-23-2023 Ketones (U) [Mass/Vol] Trace Negative [facility] Nitrite Test strip Ql (U)Ord ered By: DIANA SORENSON on 02-23-2023 Nitrite Ql (U) Negative Negative [facility] No Panel InformationOrdered By: DIANA SORENSON on 02-23-2023 Blood Gas Critical Value See comment [facility] Comment on above: Critical Value louis d on: 02/23/2023 at 14:53 Blood Gas Sample Site Umbilical cord [facility] Cord Arterial Bld Oxygen Saturation 54.3 % 95.0-99.0 [facility] Cord Arterial Blood Base Excess -0.3 mmol/L -3.0-3.0 [facility] Cord Arterial Blood O2 Content 5.1 mmol/L 6.6-9.7 [facility] Cord Blood HCO3 23.9 mmol/L 23.0-29.0 [facility] Cord Blood PCO2 38.2 mm[Hg] 35.0-45.0 [facility] Cord Blood pH 7.42 7.35-7.45 [facility] Cord Blood PO2 20.1 mm[Hg] 90.0-100.0 [facility] Cord Blood Total CO2 25.1 mmol/L 23.0-27.0 [facility] FiO2 21 % [facility] OB Urine Drug Screen (NO THC )on 02-23-2023 Amphetamine Screen,Urine Negative Normal Negative [facility] Comment on above: Performed By: #### A DDONUAPLUSTAOU, OBUDS #### [facility] [address] Barbiturate Screen,Urine Negative Normal Negative [facility] Comment on above: Performed By: #### A DDONUAPLUSTAOU, OBUDS #### [facility] [address] [place] [address] [place] Benzodiazepines Screen,Urine Negative Normal Negative [facility] Comment on above: Performed By: #### A DDONUAPLUSTAOU, OBUDS #### [facility] [address] [place] [address] [place] Cocaine Screen,Urine Negative Normal Negative [facility] Comment on above: Performed By: #### A DDONUAPLUSTAOU, OBUDS #### [facility] [address] [place] [address] [place] Opiate Screen,Urine Negative Normal Negative [facility] Comment on above: Performed By: #### A DDONUAPLUS, CUU, OBUDS #### [facility] [address] [place] [address] [place] Phencyclidine Screen, Urine Negative Normal Negative [facility] Comment on above: Result Comment: Thes e are unconfirmed results and should not be used for legal purposes. Drug Cut-Off Concentration: AMPH 1000 ng/mL KIMMY 200 ng/mL DILMA 200 ng/mL COCM 300 ng/mL OP 300 ng/mL PCP 25 ng/mL PERFORMED BY: [place] [address] PATHOLOGIST [employer] TECHNICIAN FLORY JAIN M.D. Performed By: #### A FEMI ONEAL OBUDS #### [address] Opiates [Presence] in Urine by Screen methodOrdered By: DIANA SORENSON on 02-23-2023 Opiates Screen Ql (U) Negative Negative [facility] Phencyclidine Screen Ql (U)O rdered By: DIANA SORENSON on 02-23-2023 Phencyclidine Ql (U) Negative Negative [facility] Comment on above: These are unconfirme d results and should not be used for legal purposes. Drug Cut-Off Concentration: AMPH 1000 ng/mL KIMMY 200 ng/mL DILMA 200 ng/mL COCM 300 ng/mL OP 300 ng/mL PCP 25 ng/mL Protein Auto test strip (U) [Mass/Vol]Ordered By: DIANA SORENSON on 02-23-2023 Protein (U) [Mass/Vol] 30 mg/dL Negative [facility] RPR w/rfx to Quant TP Abson 02-23-2023 RPR, Rfx Quant RPR Non-Reactive Normal Non Reactive [facility] Comment on above: Result Comment: Perf ormed at: - [facility] [address] [place] [address] [id number] Technician Trainee: Rashaad Trevino PhD, Phone: [phone] PERFORMED BY: [place] [address] PATHOLOGIST [employer]LECT[employer] TECHNICIAN FLORY JAIN M.D. Performed By: #### R UT W RFX #### [facility] , Reagin Ab [Presence] in Seru m by RPROrdered By: DIANA SORENSON on 02-23-2023 Reagin Ab RPR Ql (S) Non-Reactive Non Reactive [facility] Comment on above: Performed at: - [facility] [id number] [place], [place] [id number] Director: Rashaad Trevino PhD, Phone: [phone] Specific gravity Auto test s trip (U) [Rel density]Ordered By: DIANA SORENSON on 02-23-2023 Specific gravity (U) [Rel density] 1.016 1.001-1.030 [facility] Squamous epithelial cells de tection in urine sediment by light microscopyOrdered By: DIANA SORENSON on 02-23-2023 Epithelial cells.squamous LM Ql (Urine sed) 10-19 [HPF] 0-2 [facility] Urine Cultureon 02-23-2023 Bacteria identified Cx Nom (U) <9,000 colonies/ml mixed bacterial skin contaminants 2 Days PERFORMED BY: [place] [address] PATHOLOGIST [employer] TECHNICIAN FLORY JAIN M.D. [facility] Comment on above: Performed By: #### A DDONUAPLUS, CUU, OBUDS #### [address] Urine bacteria detection by automated methodOrdered By: DIANA SORENSON on 02-23-2023 Bacteria Auto Ql (U) 2+ None Seen [facility] Urine clarity by refractomet ry automatedOrdered By: DIANA SORENSON on 02-23-2023 Clarity Refractometry automated (U) Cloudy Clear [facility] Urine culture routineOrdered By: DIANA SORENSON on 02-23-2023 Bacteria identified Cx Nom (U) 2 Days [facility] Urine glucose measurement by automated test strip (mass/volume)Ordered By: DIANA SORENSON on 02-23-2023 Glucose Auto test strip (U) [Mass/Vol] Normal mg/dL Normal [facility] Urine hemoglobin detection b y automated test stripOrdered By: DIANA SORENSON on 02-23-2023 Hemoglobin Auto test strip Ql (U) Negative Negative [facility] Urine leukocyte esterase det ection by automated test stripOrdered By: DIANA SORENSON on 02-23-2023 Leukocyte esterase Auto test strip Ql (U) 2+ Negative [facility] Urobilinogen Auto test strip (U) [Mass/Vol]Ordered By: DIANA SORENSON on 02-23-2023 Urobilinogen (U) [Mass/Vol] Normal mg/dL Normal [facility] pH Auto test strip (U)Ordere d By: DIANA SORENSON on 02-23-2023 pH (U) 7.0 [pH] 5.0-9.0 [facility] Bacterial susceptibility wooten el EZEQUIEL (Isol)on 01-31-2023 Microorganism identified Cx Nom (Unsp spec) [id number] Abnormal [facility] Comment on above: Order Comment: Speci men Type: MICROBIAL ISOLATE Ordering Facility: [facility] Address: [address] [place] [address] Result Comment: Stre ptococcus agalactiae (group b streptococcus) Identification performed by client. Performed By: #### Hannah CRANE, [id number] #### [facility] CLIA [id number] [address] [place] [address] [place] MINIMUM INHIBITORY CONCENTRA TION (VIZION)on 01-31-2023 cefTRIAXone [Susc] 0.25 Susceptible Susceptib le <=0.5 , Nonsusceptible >.5 [facility] Comment on above: Order Comment: Order ing Facility: [facility] Address: [address] [place] [address] Performed By: #### Hannah CRANE, [id number] #### [facility] CLIA [id number] [address] [place] [address] [place] Clindamycin [Susc] <=0.12 Susceptible Susceptib le <=0.25 , Intermediate >.25 , Resistant >.5 [facility] Comment on above: Order Comment: Order ing Facility: [facility] Address: [address] [place], [place] [id number] Performed By: #### Hannah CRANE, [id number] #### [facility] CLIA [id number] [facility] [place] [address] [place] Erythromycin [Susc] <=0.25 Susceptible Suscepti ble <=0.25 , Intermediate >.25 , Resistant >=1 [facility] Comment on above: Order Comment: Order ing Facility: [facility] Address: [address] [place] [address] Performed By: #### Hannah CRANE, [id number] #### [facility] CLIA [id number] [address] [place] [address] [place] Penicillin [Susc] 0.06 Susceptible Susceptibl e <=0.125 , Nonsusceptible >.125 [facility] Comment on above: Order Comment: Order ing Facility: [facility] Address: [address] [place] [address] Performed By: #### Hannah CRANE, [id number] #### [facility] CLIA [id number] [address] [place] [address] [place] Vancomycin [Susc] <=0.50 Susceptible Susceptibl e <=1 , Nonsusceptible >1 [facility] Comment on above: Order Comment: Order ing Facility: [facility] Address: [address] [place] [address] Performed By: #### Hannah CRANE, [id number] #### [facility] CLIA [id number] [address] [place] [address] [place] No Panel InformationOrdered By: DIANA SORENSON on 01-31-2023 Group B Streptococcus Culture Strep. agalactiae Grp B [facility] Strep B Culture (PCN Allergi c)on 01-31-2023 Strep B Culture (PCN Allergic) ORGANISM: Strep. agalactiae Grp B (O:B) Comments Sent to [facility] for Sensitivity Testing Please see scanned report located in the Laboratory/Scanned Reports section of the EMR. PERFORMED BY: [address] [place] [address] PATHOLOGIST [employer] W[employer] TECHNICIAN FLORY JAIN M.D. Normal [facility] Comment on above: Performed By: #### R UT W RFX #### [facility] , [place] PREG ANATOMY SINGLEon US PREG ANATOMY SINGLE [...] YOMAIRA SOSA Date: 2022-10-19 15:24 Normal [facility] AFP MATERNAL FOR SPINA BIFID Aon 10-07-2022 AFP MoM 1.00 Normal [facility] Comment on above: Performed By: #### A FPMAT #### [facility] [address] [address] [address] Calin Marshall AFP Value 45.3 ng/mL Normal [facility] Comment on above: Performed By: #### A FPMAT #### [facility] [address] [place], [place] [address] Dr. Calin Marshall AFP, Serum for Spina Bifida Report Normal [facility] Comment on above: Performed By: #### A FPMAT #### [facility] [address] [address] [address] Calin Marshall Comment Comment Normal [facility] Comment on above: Result Comment: Les Miller, Ph.D., [facility] Director . References: Available Upon Request. . Multiples Of Median Cutoffs For AFP Elevations Perry 2.5 Black 2.8 IDD 2.0 Twins 4.5 Abbreviation Definitions IDD - Insulin Dep Diabetes OSBR - Open Spina Bifida Risk . For further inquiries contact [facility] at [phone]. . This test was developed and its performance characteristics determined by [employer]. It has not been cleared or approved by the Food and Drug Administration. Performed By: #### A FPMAT #### [facility] [address] [place] [address] Dr. Calin Marshall Gest Age Collection Date 18.9 weeks Normal [facility] Comment on above: Performed By: #### A FPMAT #### [facility] [address] [address] [address] Calin Marshall Gestat, Age Based on Ultrasound Normal [facility] Comment on above: Result Comment: 8.6 on 07/25/2022 Recalculations are not recommended when gestational dating by LMP and ultrasound are within 10 days. Performed By: #### A FPMAT #### [facility] [address] [address] [address] Calin Marshall Insulin Dep Diabetes No Normal [facility] Comment on above: Performed By: #### A FPMAT #### [facility] [address] [place] [address] Dr. Calin Marshall Interpretation Comment Normal [facility] Comment on above: Result Comment: Inte rpretation: [...] Customer Services to discuss available options. The [employer] recommends amniocentesis be offered to women age 35 and older. Performed By: #### A FPMAT #### [facility] [address] [place] [address] Dr. Calin Marshall [age] [facility] Comment on above: Performed By: #### A FPMAT #### [facility] [address] [address] [address] Calin Marshall Multiple Gestation No [facility] Comment on above: Performed By: #### A FPMAT #### [facility] [address] [place] [address] Dr. Calin Marshall [place] [id number] [facility] Comment on above: Performed By: #### A FPMAT #### [facility] [address] [place] [address] Dr. Calin Marshall PDF . [facility] Comment on above: Performed By: #### A FPMAT #### [facility] [address] [place] [address] Dr. Calin Marshall Race [facility] Comment on above: Performed By: #### A FPMAT #### [facility] [address] [place] [address] Dr. Calin Marshall Test Results: Negative [facility] Comment on above: Performed By: #### A FPMAT #### [facility] [address] [place] [address] Dr. Calin Marshall PAP ACOG PANEL 2: 21 to 29on 09-12-2022 . . [facility] Comment on above: Performed By: #### R UBIGG #### [facility] [address] [place] [address] Dr. Calin Marshall Age Gdln ACOG Testing - [facility] Comment on above: Performed By: #### R UBIGG #### [facility] [address] [place] [address] Dr. Calin Marshall DIAGNOSIS: Comment [facility] Comment on above: Result Comment: NEGA TIVE FOR INTRAEPITHELIAL LESION OR MALIGNANCY. Performed By: #### R UBIGG #### [facility] [address] [place] [address] Dr. Calin Marshall Methodology: Comment Normal [facility] Comment on above: Result Comment: This liquid based ThinPrep(R) pap test was screened with the use of an image guided system. Performed By: #### R UBIGG #### [facility] [address] [place] [address] Dr. Calin Marshall Note: Comment Normal [facility] Comment on above: Result Comment: The Pap smear is a screening test designed to aid in the detection of premalignant and malignant conditions of the uterine cervix. It is not a diagnostic procedure and should not be used as the sole means of detecting cervical cancer. Both false-positive and false-negative reports do occur. . Performed By: #### R UBIGG #### [facility] [address] [place] [address] Dr. Calin Marshall Performed by: Comment Normal [facility] Comment on above: Result Comment: Essence Salazar, Skills Trainer (ASCP) Performed By: #### R UBIGG #### [facility] [address] [place] [address] Dr. Calin Marshall Reflex Criteria: Comment Normal [facility] Comment on above: Result Comment: The HPV DNA reflex criteria were not met with this specimen result therefore, no HPV testing was performed. . Performed By: #### R UBIGG #### [facility] [address] [place] [address] Dr. Calin Marshall Specimen adequacy: Comment Normal [facility] Comment on above: Result Comment: Sati sfactory for evaluation. No endocervical component is identified. Performed By: #### R UBIGG #### [facility] [facility] [address] [place] [address] Dr. Calin Marshall CHLAMYDIA/GONOCOCCUS RAUL (SW AB/URINE/PAPon 09-08-2022 Chlamydia trachomatis, RAUL Negative Normal Negative [facility] Comment on above: Performed By: #### C T/NGNA #### [facility] [address] [place] [address] Dr. Calin Marshall Neisseria gonorrhoeae, RAUL Negative Normal Negative [facility] Comment on above: Performed By: #### C T/NGNA #### [facility] [address] [place] [address] Dr. Calin Marshall HEP B SURFACE ANTIGEN SCREEN on 08-11-2022 HBsAg Screen Negative Normal Negative [facility] Comment on above: Performed By: #### C MP, LIPA #### [facility] [address] [place] [address] Dr. Calin Marshall HEPATITIS C VIRUS AB W/ REFL EX QUANTon 08-11-2022 HCV AB <0.1 Normal 0.0-0.9 [facility] Comment on above: Performed By: #### R UBIGG #### [facility] [address] [place] [address] Dr. Calin Marshall Interpretation: Comment Normal [facility] Comment on above: Result Comment: Nega tive Not infected with HCV, unless recent infection is suspected or other evidence exists to indicate HCV infection. Performed By: #### R UBIGG #### [facility] [address] [place] [address] Dr. Calin Marshall HIV 1 AND 2 WITH REFLEXon HIV Screen 4th Generation wRfx Non-Reactive Normal Non Reactive [facility] Comment on above: Result Comment: HIV Negative HIV-1/HIV-2 antibodies and HIV-1 p24 antigen were NOT detected. There is no laboratory evidence of HIV infection. Performed By: #### H IV12 #### [facility] [address] [place] [address] Dr. Calin Marshall RPR QUANTon 08-11-2022 Rapid Plasma Reagin, Quant Non-Reactive Normal NonRea<1:1 [facility] Comment on above: Result Comment: Plea se Note: This test does not meet current guidelines for screening and diagnosis of syphilis. This test is intended for following treatment response in patients being treated for syphilis infection. To screen for syphilis infection, a reflex cascade that includes both RPR and a treponema-specific assay should be utilized, such as Treponema pallidum (Syphilis) Screening [place] (655088) or Rapid Plasma Reagin (RPR) Test With Reflex to Quantitative RPR and Confirmatory Treponema pallidum Antibodies (270947). Performed By: #### R PRQ #### [facility] [address] [place] [address] Dr. Calin Marshall RUBELLA AB IGGon 08-11-2022 Rubella Antibodies, IgG 12.10 index Normal Immune >0.99 [facility] Comment on above: Result Comment: Non- immune <0.90 Equivocal 0.90 - 0.99 Immune >0.99 Performed By: #### R UBIGG #### [facility] [address] [place] [address] Dr. Calin Marshall CBC AUTO DIFFon 08-10-2022 BASO # 0.0 103/ul Normal 0.0-0.1 [facility] Comment on above: Performed By: #### R UBIGG #### [facility] [address] [place] [address] Dr. Calin Marshall Basophils/100 WBC (Bld) 0.4 % Normal 0.2-2.0 [facility] Comment on above: Performed By: #### R UBIGG #### [facility] [address] [place] [address] Dr. Calin Marshall EO # 0.1 103/ul Normal 0.0-0.7 [facility] Comment on above: Performed By: #### R UBIGG #### [facility] [address] [place] [address] Dr. Calin Marshall Eosinophils/100 WBC (Bld) 0.7 % Critically low 0.9-7.0 [facility] Comment on above: Performed By: #### R UBIGG #### [facility] [address] [place] [address] Dr. Calin Marshall Erythrocyte distribution width (RBC) [Ratio] 12.6 % Normal 11.0-15.0 [facility] Comment on above: Performed By: #### R UBIGG #### [facility] [address] [place] [address] Dr. Calin Marshall Hematocrit (Bld) [Volume fraction] 37.6 % Normal 36.0-48.0 [facility] Comment on above: Performed By: #### R UBIGG #### [facility] [address] [place] [address] Dr. Calin Marshall Hemoglobin (Bld) [Mass/Vol] 12.5 g/dL Normal 12.0-16.0 [facility] Comment on above: Performed By: #### R UBIGG #### [facility] [address] [place] [address] Dr. Calin Marshall IG # 0.03 10e3/ul Normal 0.00-0.03 [facility] Comment on above: Performed By: #### R UBIGG #### [facility] [address] [place] [address] Dr. Calin Marshall IG % 0.3 % Normal 0.0-0.5 [facility] Comment on above: Performed By: #### R UBIGG #### [facility] [address] [place] [address] Dr. Calin Marshall LYMPH # 2.5 103/ul Normal 1.2-3.8 [facility] Comment on above: Performed By: #### R UBIGG #### [facility] [address] [place] [address] Dr. Calin Marshall Lymphocytes/100 WBC (Bld) 22.3 % Normal 20.5-60.0 [facility] Comment on above: Performed By: #### R UBIGG #### [facility] [address] [place] [address] Dr. Calin Marshall MANUAL DIFF REQ NO Normal [facility] Comment on above: Performed By: #### R UBIGG #### [facility] [address] [place] [address] Dr. Calin Marshall MCH (RBC) [Entitic mass] 29.8 pg Normal 26.7-34.0 [facility] Comment on above: Performed By: #### R UBIGG #### [facility] [address] [place] [address] Dr. Calin Marshall MCHC (RBC) [Mass/Vol] 33.2 g/dL Normal 29.9-35.2 [facility] Comment on above: Performed By: #### R UBIGG #### [facility] [address] [address] [address] Calin Marshall MCV (RBC) [Entitic vol] 89.5 fL Normal 81.0-99.0 [facility] Comment on above: Performed By: #### R UBIGG #### [facility] [address] [place] [address] Dr. Calin Marshall MONO # 0.5 103/ul Normal 0.3-0.8 [facility] Comment on above: Performed By: #### R UBIGG #### [facility] [address] [place] [address] Dr. Calin Marshall Monocytes/100 WBC (Bld) 4.3 % Normal 1.7-12.0 [facility] Comment on above: Performed By: #### R UBIGG #### [facility] [address] [place] [address] Dr. Calin Marshall NEUT # 8.0 103/ul Critically high 1.4-6.5 [facility] Comment on above: Performed By: #### R UBIGG #### [facility] [address] [place] [address] Dr. Calin Marshall Neutrophils/100 WBC (Bld) 72.0 % Normal 43.0-75.0 [facility] Comment on above: Performed By: #### R UBIGG #### [facility] [address] [place] [address] Dr. Calin Marshall Platelet mean volume (Bld) [Entitic vol] 10.2 fL Normal 9.5-13.5 [facility] Comment on above: Performed By: #### R UBIGG #### [facility] [address] [place] [address] Dr. Calin Marshall PLT 362 103/ul Normal 150-450 [facility] Comment on above: Performed By: #### R UBIGG #### [facility] [address] [address] [address] Calin Marshall RBC 4.20 106/ul Normal 4.20-5.40 [facility] Comment on above: Performed By: #### R UBIGG #### [facility] [address] [place] [address] Dr. Calin Marshall WBC 11.0 103/ul Normal 4.0-11.0 [facility] Comment on above: Performed By: #### R UBIGG #### [facility] [address] [place] [address] Dr. Calin Marshall CULTURE URINEon 08-10-2022 CULTURE URINE Culture Observations : LIGHT GROWTH OF MIXED GENITAL MARIO. NO POTENTIAL PATHOGENS SEEN. Normal [facility] Comment on above: Performed By: #### R UBIGG #### [facility] [address] [place] [address] Dr. Calin Marshall DRUG SCREEN RAPID (URINE)on 08-10-2022 AMP Negative Normal NEGATIVE [facility] Comment on above: Performed By: #### D RUGRPD #### [facility] [address] [place] [address] Dr. Calin Marshall BAR Negative Normal NEGATIVE [facility] Comment on above: Performed By: #### D RUGRPD #### [facility] [address] [place] [address] Dr. Calin Marshall BUP Negative Normal NEGATIVE [facility] Comment on above: Performed By: #### D RUGRPD #### [facility] [address] [place] [address] Dr. Calin Marshall BZO Negative Normal NEGATIVE [facility] Comment on above: Performed By: #### D RUGRPD #### [facility] [address] [place] [address] Dr. Calin Marshall ROSARIO Negative Normal NEGATIVE [facility] Comment on above: Performed By: #### D RUGRPD #### [facility] [address] [place] [address] Dr. Calin Marshall CUT-OFFS SEE BELOW Normal [facility] Comment on above: Result Comment: AMP [...] ng/mL Performed By: #### D RUGRPD #### [facility] [address] [place] [address] Dr. Calin Marshall DRUG CUT HEADER DRUG CLASS TEST SYST EM CUT-OFF CONCENTRATIONS ARE FOLLOWS: Normal [facility] Comment on above: Performed By: #### D RUGRPD #### [facility] [address] [place] [address] Dr. Calin Marshall mAMP Negative Normal NEGATIVE [facility] Comment on above: Performed By: #### D RUGRPD #### [facility] [address] [place] [address] Dr. Calin Marshall MTD Negative Normal NEGATIVE [facility] Comment on above: Performed By: #### D RUGRPD #### [facility] [address] [place] [address] Dr. Calin Marshall OPI Negative Normal NEGATIVE [facility] Comment on above: Performed By: #### D RUGRPD #### [facility] [address] [place] [address] Dr. Calin Marshall OXY Negative Normal NEGATIVE [facility] Comment on above: Performed By: #### D RUGRPD #### [facility] [address] [place] [address] Dr. Calin Marshall PCP Negative Normal NEGATIVE [facility] Comment on above: Performed By: #### D RUGRPD #### [facility] [address] [place] [address] Dr. Calin Marshall PPX Negative Normal NEGATIVE [facility] Comment on above: Performed By: #### D RUGRPD #### [facility] [address] [address] [address] Calin Marshall TCA Positive Abnormal NEGATIVE [facility] Comment on above: Performed By: #### D RUGRPD #### [facility] [address] [address] [address] Calin Marshall THC Positive Abnormal NEGATIVE [facility] Comment on above: Performed By: #### D RUGRPD #### [facility] [address] [place] [address] Dr. Calin Marshall GLYCOHEMOGLOBIN A1Con 2022 ADA RECOMMENDATION SEE BELOW Normal [facility] Comment on above: Result Comment: ADA RECOMMENDED LIMIT 4.0 - 6.0 ADA THERAPEUTIC TARGET < 7.0 ACTION SUGGESTED > 7.0 Performed By: #### C MP, LIPA #### [facility] [address] [place] [address] Dr. Calin Marshall Glucose [Mass/Vol] 97 mg/dL Normal [facility] Comment on above: Performed By: #### C MP, LIPA #### [facility] [address] [place] [address] Dr. Calin Marshall HbA1c (Bld) [Mass fraction] 5.0 % Normal 4.5-6.2 [facility] Comment on above: Performed By: #### C MP, LIPA #### [facility] [address] [place] [address] Dr. Calin Marshall CHON BOX TEST PT SEND OUTo n 08-10-2022 SENT TO REF LAB 08/10/2022 Normal [facility] Comment on above: Performed By: #### R UBIGG #### [facility] [address] [place] [address] Dr. Calin Marshall TYPE AND SCREENon 08-10-2022 TYPE AND SCREEN Negative Normal [facility] Comment on above: Performed By: #### R UBIGG #### [facility] [address] [place] [address] Dr. Calin Marshall US PREG TVon 07-26-2022 [...] CALDERON OLSON Date: 2022-07-26 07:08 Normal [facility] CBC AUTO DIFFon 07-12-2022 BASO # 0.1 103/ul Normal 0.0-0.1 [facility] Comment on above: Performed By: #### R UBIGG #### [facility] [address] [place] [address] Dr. Calin Marshall Basophils/100 WBC (Bld) 0.3 % Normal 0.2-2.0 [facility] Comment on above: Performed By: #### R UBIGG #### [facility] [address] [address] [address] Calin Marshall EO # 0.0 103/ul Normal 0.0-0.7 [facility] Comment on above: Performed By: #### R UBIGG #### [facility] [address] [place] [address] Dr. Calin Marshall Eosinophils/100 WBC (Bld) 0.2 % Critically low 0.9-7.0 [facility] Comment on above: Performed By: #### R UBIGG #### [facility] [address] [address] [address] Calin Marshall Erythrocyte distribution width (RBC) [Ratio] 11.9 % Normal 11.0-15.0 [facility] Comment on above: Performed By: #### R UBIGG #### [facility] [address] [place] [address] Dr. Calin Marshall Hematocrit (Bld) [Volume fraction] 40.8 % Normal 36.0-48.0 [facility] Comment on above: Performed By: #### R UBIGG #### [facility] [address] [place] [address] Dr. Calin Marshall Hemoglobin (Bld) [Mass/Vol] 14.4 g/dL Normal 12.0-16.0 [facility] Comment on above: Performed By: #### R UBIGG #### [facility] [address] [place] [address] Dr. Calin Marshall IG # 0.06 10e3/ul Critically high 0.00-0.03 [facility] Comment on above: Performed By: #### R UBIGG #### [facility] [address] [place] [address] Dr. Calin Marshall IG % 0.3 % Normal 0.0-0.5 [facility] Comment on above: Performed By: #### R UBIGG #### [facility] [address] [place] [address] Dr. Calin Marshall LYMPH # 3.4 103/ul Normal 1.2-3.8 [facility] Comment on above: Performed By: #### R UBIGG #### [facility] [address] [place] [address] Dr. Calin Marshall Lymphocytes/100 WBC (Bld) 18.6 % Critically low 20.5-60.0 [facility] Comment on above: Performed By: #### R UBIGG #### [facility] [address] [place] [address] Dr. Calin Marshall MANUAL DIFF REQ NO Normal [facility] Comment on above: Performed By: #### R UBIGG #### [facility] [address] [place] [address] Dr. Calin Marshall MCH (RBC) [Entitic mass] 30.3 pg Normal 26.7-34.0 [facility] Comment on above: Performed By: #### R UBIGG #### [facility] [address] [place] [address] Dr. Calin Marshall MCHC (RBC) [Mass/Vol] 35.3 g/dL Critically high 29.9-35.2 [facility] Comment on above: Performed By: #### R UBIGG #### [facility] [address] [address] [address] Calin Marshall MCV (RBC) [Entitic vol] 85.7 fL Normal 81.0-99.0 [facility] Comment on above: Performed By: #### R UBIGG #### [facility] [address] [place] [address] Dr. Calin Marshall MONO # 0.9 103/ul Critically high 0.3-0.8 [facility] Comment on above: Performed By: #### R UBIGG #### [facility] [address] [place] [address] Dr. Calin Marshall Monocytes/100 WBC (Bld) 4.9 % Normal 1.7-12.0 [facility] Comment on above: Performed By: #### R UBIGG #### [facility] [address] [place] [address] Dr. Calin Marshall NEUT # 13.8 103/ul Critically high 1.4-6.5 [facility] Comment on above: Performed By: #### R UBIGG #### [facility] [address] [place] [address] Dr. Calin Marshall Neutrophils/100 WBC (Bld) 75.7 % Critically high 43.0-75.0 [facility] Comment on above: Performed By: #### R UBIGG #### [facility] [address] [place] [address] Dr. Calin Marshall Platelet mean volume (Bld) [Entitic vol] 9.5 fL Normal 9.5-13.5 [facility] Comment on above: Performed By: #### R UBIGG #### [facility] [address] [place] [address] Dr. Calin Marshall PLT 427 103/ul Normal 150-450 [facility] Comment on above: Performed By: #### R UBIGG #### [facility] [address] [place] [address] Dr. Calin Marshall RBC 4.76 106/ul Normal 4.20-5.40 [facility] Comment on above: Performed By: #### R UBIGG #### [facility] [address] [address] [address] Calin Marshall WBC 18.2 103/ul Critically high 4.0-11.0 [facility] Comment on above: Performed By: #### R UBIGG #### [facility] [address] [place] [address] Dr. Calin Marshall ER URINE PROFILEon 3 Bilirubin Ql (U) Negative Normal NEGATIVE [facility] Comment on above: Performed By: #### C MP, LIPA #### [facility] [address] [place] [address] Dr. Calin Marshall Clarity (U) CLEAR Normal CLEAR [facility] Comment on above: Performed By: #### C MP, LIPA #### [facility] [address] [place] [address] Dr. Calin Marshall Color (U) YELLOW Normal YELLOW [facility] Comment on above: Performed By: #### C MP, LIPA #### [facility] [address] [place] [address] Dr. Calin HANDY A micrscopic examination will be performed if indicated. Normal [facility] Comment on above: Performed By: #### C MP, LIPA #### [facility] [address] [place] [address] Dr. Calin Marshall Glucose Ql (U) Negative Normal NEGATIVE [facility] Comment on above: Performed By: #### C MP, LIPA #### [facility] [address] [place] [address] Dr. Calin Marshall Hemoglobin Ql (U) SMALL Abnormal NEGATIVE [facility] Comment on above: Performed By: #### C MP, LIPA #### [facility] [address] [place] [address] Dr. Calin Marshall Ketones Ql (U) >=80 Abnormal NEGATIVE [facility] Comment on above: Performed By: #### C MP, LIPA #### [facility] [address] [place] [address] Dr. Calin Marshall LEUKOCYTES Negative Normal NEGATIVE [facility] Comment on above: Performed By: #### C MP, LIPA #### [facility] [address] [place] [address] Dr. Calin Marshall Nitrite Ql (U) Negative Normal NEGATIVE [facility] Comment on above: Performed By: #### C MP, LIPA #### [facility] [address] [place] [address] Dr. Calin Marshall pH (U) 6.0 [pH] Normal 5-9 [facility] Comment on above: Performed By: #### C MP, LIPA #### [facility] [address] [place] [address] Dr. Calin Marshall Protein (U) [Mass/Vol] 30 mg/dL Abnormal NEGATIVE/ TRA CE [facility] Comment on above: Performed By: #### C MP, LIPA #### [facility] [address] [place] [address] Dr. Calin Marshall SPEC GRAVITY >=1.030 Abnormal 1.005-<=1.025 [facility] Comment on above: Performed By: #### C MP, LIPA #### [facility] [address] [place] [address] Dr. Calin Marshall UR MICRO IND INDICATED Normal [facility] Comment on above: Performed By: #### C MP, LIPA #### [facility] [address] [place] [address] Dr. Calin Marshall Urobilinogen Qn (U) 0.2 {Bridger'U}/dL Normal 0.2 - 1. 0 [facility] Comment on above: Performed By: #### C MP, LIPA #### [facility] [address] [place] [address] Dr. Calin Marshall LIPASEon 07-12-2022 Lipase [Catalytic activity/Vol] 186.0 U/L Normal 73.0-393.0 [facility] Comment on above: Performed By: #### C MP, LIPA #### [facility] [address] [place] [address] Dr. Calin Marshall PROF 14(COMP METB)on 01-03-2 023 Albumin [Mass/Vol] 4.6 g/dL Normal 3.4-5.0 [facility] Comment on above: Performed By: #### C MP, LIPA #### [facility] [address] [place] [address] Dr. Calin Marshall Albumin/Globulin [Mass ratio] 1.0 {ratio} Normal [facility] Comment on above: Performed By: #### C MP, LIPA #### [facility] [address] [place] [address] Dr. Calin Marshall ALP [Catalytic activity/Vol] 100 U/L Normal 46-116 [facility] Comment on above: Performed By: #### C MP, LIPA #### [facility] [address] [place] [address] Dr. Calin Marshall ALT [Catalytic activity/Vol] 25 U/L Normal 14-59 [facility] Comment on above: Performed By: #### C MP, LIPA #### [facility] [address] [place] [address] Dr. Calin Marshall Anion gap [Moles/Vol] 18.6 mmol/L Normal [facility] Comment on above: Performed By: #### C MP, LIPA #### [facility] [address] [place] [address] Dr. Calin Marshall AST [Catalytic activity/Vol] 15 U/L Normal 15-37 [facility] Comment on above: Performed By: #### C MP, LIPA #### [facility] [address] [place] [address] Dr. Calin Marshall Bilirubin [Mass/Vol] 0.5 mg/dL Normal 0.2-1.0 [facility] Comment on above: Performed By: #### C MP, LIPA #### [facility] [address] [place] [address] Dr. Calin Marshall Calcium [Mass/Vol] 10.8 mg/dL Critically high 8.5-10.1 [facility] Comment on above: Performed By: #### C MP, LIPA #### [facility] [address] [place] [address] Dr. Calin Marshall Chloride [Moles/Vol] 95 mmol/L Critically low 98-107 [facility] Comment on above: Performed By: #### C MP, LIPA #### [facility] [address] [place] [address] Dr. Calin Marshall CO2 [Moles/Vol] 22.8 mmol/L Normal 21.0-32.0 [facility] Comment on above: Performed By: #### C MP, LIPA #### [facility] [address] [place] [address] Dr. Calin Marshall Creatinine [Mass/Vol] 0.86 mg/dL Normal 0.55-1.02 [facility] Comment on above: Performed By: #### C MP, LIPA #### [facility] [address] [place] [address] Dr. Calin Marshall EGFR-AF BELGIAN >60 Normal >=60 [facility] Comment on above: Performed By: #### C MP, LIPA #### [facility] [address] [place] [address] Dr. Calin Marshall EGFR-NON AF BELGIAN >60 Normal >=60 [facility] Comment on above: Performed By: #### C MP, LIPA #### [facility] [address] [place] [address] Dr. Calin Marshall Globulin (S) [Mass/Vol] 4.6 g/dL Normal [facility] Comment on above: Performed By: #### C MP, LIPA #### [facility] [address] [place] [address] Dr. Calin Marshall Glucose [Mass/Vol] 79 mg/dL Normal 74-106 [facility] Comment on above: Performed By: #### C MP, LIPA #### [facility] [address] [place] [address] Dr. Calin Marshall Potassium [Moles/Vol] 3.4 mmol/L Critically low 3.5-5.1 [facility] Comment on above: Performed By: #### C MP, LIPA #### [facility] [address] [place] [address] Dr. Calin Marshall Protein [Mass/Vol] 9.2 g/dL Critically high 6.4-8.2 T [facility] Comment on above: Performed By: #### C MP, LIPA #### [facility] [address] [place] [address] Dr. Calin Marshall Sodium [Moles/Vol] 133 mmol/L Critically low 136-145 [facility] Comment on above: Performed By: #### C MP, LIPA #### [facility] [address] [place] [address] Dr. Calin Marshall Urea nitrogen [Mass/Vol] 10.0 mg/dL Normal 7.0-18.0 [facility] Comment on above: Performed By: #### C MP, LIPA #### [facility] [address] [place] [address] Dr. Calin Marshall Urea nitrogen/Creatinine [Mass ratio] 11.6 mg/mg Normal [facility] Comment on above: Performed By: #### C MP, LIPA #### [facility] [address] [place] [address] Dr. Calin Marshall URINE MICROSCOPIC ONLYon BACTERIA TRACE Abnormal NONE SEEN [facility] Comment on above: Performed By: #### C YULIANA, LIPA #### [facility] [address] [place] [address] Dr. Calin Marshall Bacteria identified Cx Nom (U) NOT INDICATED Normal [facility] Comment on above: Performed By: #### C MP, LIPA #### [facility] [address] [place] [address] Dr. Calin Marshall CAST NONE SEEN Normal NONE SEEN [facility] Comment on above: Performed By: #### C MP, LIPA #### [facility] [address] [place] [address] Dr. Calin Marshall Crystals LM Nom (Urine sed) NONE SEEN Normal NONE SEEN [facility] Comment on above: Performed By: #### C MP, LIPA #### [facility] [address] [place] [address] Dr. Calin Marshall Epithelial cells LM Ql (Urine sed) RARE Normal NONE SEEN /RARE [facility] Comment on above: Performed By: #### C MP, LIPA #### [facility] [address] [place] [address] Dr. Calin Marshall MUCOUS NONE SEEN Normal NONE SEEN [facility] Comment on above: Performed By: #### C MP, LIPA #### [facility] [address] [place] [address] Dr. Calin Marshall RBC 0-2 Normal 0-2 [facility] Comment on above: Performed By: #### C MP, LIPA #### [facility] [address] [place] [address] Dr. Calin Marshall WBC NONE SEEN Normal NONE SEEN [facility] Comment on above: Performed By: #### C MP, LIPA #### [facility] [address] [place] [address] Dr. Calin Marshall CBC AUTO DIFFon 07-08-2022 BASO # 0.1 103/ul Normal 0.0-0.1 [facility] Comment on above: Performed By: #### C MP, LIPA #### [facility] [address] [place] [address] Dr. Calin Marshall Basophils/100 WBC (Bld) 0.4 % Normal 0.2-2.0 [facility] Comment on above: Performed By: #### C MP, LIPA #### [facility] [address] [place] [address] Dr. Calin Marshall EO # 0.1 103/ul Normal 0.0-0.7 [facility] Comment on above: Performed By: #### C MP, LIPA #### [facility] [address] [place] [address] Dr. Calin Marshall Eosinophils/100 WBC (Bld) 0.3 % Critically low 0.9-7.0 [facility] Comment on above: Performed By: #### C MP, LIPA #### [facility] [address] [place] [address] Dr. Calin Marshall Erythrocyte distribution width (RBC) [Ratio] 12.0 % Normal 11.0-15.0 [facility] Comment on above: Performed By: #### C MP, LIPA #### [facility] [address] [place] [address] Dr. Calin Marshall Hematocrit (Bld) [Volume fraction] 40.3 % Normal 36.0-48.0 [facility] Comment on above: Performed By: #### C MP, LIPA #### [facility] [address] [place] [address] Dr. Calin Marshall Hemoglobin (Bld) [Mass/Vol] 14.3 g/dL Normal 12.0-16.0 [facility] Comment on above: Performed By: #### C MP, LIPA #### [facility] [address] [place] [address] Dr. Calin Marshall IG # 0.05 10e3/ul Critically high 0.00-0.03 [facility] Comment on above: Performed By: #### C MP, LIPA #### [facility] [address] [place] [address] Dr. Calin Marshall IG % 0.3 % Normal 0.0-0.5 [facility] Comment on above: Performed By: #### C MP, LIPA #### [facility] [address] [place] [address] Dr. Calin Marshall LYMPH # 3.5 103/ul Normal 1.2-3.8 [facility] Comment on above: Performed By: #### C MP, LIPA #### [facility] [address] [place] [address] Dr. Calin Marshall Lymphocytes/100 WBC (Bld) 20.3 % Critically low 20.5-60.0 [facility] Comment on above: Performed By: #### C MP, LIPA #### [facility] [address] [place] [address] Dr. Calin Marshall MANUAL DIFF REQ NO Normal [facility] Comment on above: Performed By: #### C MP, LIPA #### [facility] [address] [place] [address] Dr. Calin Marshall MCH (RBC) [Entitic mass] 30.5 pg Normal 26.7-34.0 [facility] Comment on above: Performed By: #### C MP, LIPA #### [facility] [address] [place] [address] Dr. Calin Marshall MCHC (RBC) [Mass/Vol] 35.5 g/dL Critically high 29.9-35.2 [facility] Comment on above: Performed By: #### C MP, LIPA #### [facility] [address] [place] [address] Dr. Calin Marshall MCV (RBC) [Entitic vol] 85.9 fL Normal 81.0-99.0 [facility] Comment on above: Performed By: #### C MP, LIPA #### [facility] [address] [place] [address] Dr. Calin Marshall MONO # 0.8 103/ul Normal 0.3-0.8 [facility] Comment on above: Performed By: #### C MP, LIPA #### [facility] [address] [place] [address] Dr. Calin Marshall Monocytes/100 WBC (Bld) 4.6 % Normal 1.7-12.0 [facility] Comment on above: Performed By: #### C MP, LIPA #### [facility] [address] [place] [address] Dr. Calin Marshall NEUT # 12.8 103/ul Critically high 1.4-6.5 [facility] Comment on above: Performed By: #### C MP, LIPA #### [facility] [address] [place] [address] Dr. Calin Marshall Neutrophils/100 WBC (Bld) 74.1 % Normal 43.0-75.0 [facility] Comment on above: Performed By: #### C MP, LIPA #### [facility] [address] [place] [address] Dr. Calin Marshall Platelet mean volume (Bld) [Entitic vol] 9.6 fL Normal 9.5-13.5 [facility] Comment on above: Performed By: #### C MP, LIPA #### [facility] [address] [place] [address] Dr. Calin Marshall PLT 415 103/ul Normal 150-450 [facility] Comment on above: Performed By: #### C YULIANA, LIPA #### [facility] [address] [place] [address] Dr. Calin Marshall RBC 4.69 106/ul Normal 4.20-5.40 [facility] Comment on above: Performed By: #### C YULIANA, LIPA #### [facility] [address] [place] [address] Dr. Calin Marshall WBC 17.3 103/ul Critically high 4.0-11.0 [facility] Comment on above: Performed By: #### C YULIANA, LIPA #### [facility] [address] [place] [address] Dr. Calin Marshall CULTURE URINEon 07-08-2022 CULTURE URINE Culture Observations : MODERATE GROWTH OF MIXED GENITAL MARIO. NO POTENTIAL PATHOGENS SEEN. Normal [facility] Comment on above: Performed By: #### R UBIGG #### [facility] [address] [place] [address] Dr. Calin Marshall ER URINE PROFILEon Bilirubin Ql (U) Negative Normal NEGATIVE [facility] Comment on above: Performed By: #### ELDA ZHOURO #### [facility] [address] [place] [address] Dr. Calin Marshall Clarity (U) CLEAR Normal CLEAR [facility] Comment on above: Performed By: #### ELDA ZHOURO #### [facility] [address] [place] [address] Dr. Calin Marshall Color (U) LT. YELLOW Normal YELLOW [facility] Comment on above: Performed By: #### ELDA ZHOURO #### [facility] [address] [place] [address] Dr. Calin HANDY A micrscopic examination will be performed if indicated. Normal [facility] Comment on above: Performed By: #### ELDA ZHOURO #### [facility] [address] [place] [address] Dr. Calin Marshall Glucose Ql (U) Negative Normal NEGATIVE [facility] Comment on above: Performed By: #### Ivan FRAUSTO UMICRO #### [facility] [address] [place] [address] Dr. Calin Marshall Hemoglobin Ql (U) SMALL Abnormal NEGATIVE [facility] Comment on above: Performed By: #### Ivan FRAUSTO UMICRO #### [facility] [address] [address] [address] Calin Marshall Ketones Ql (U) 15 mg/dl Abnormal NEGATIVE [facility] Comment on above: Performed By: #### Ivan FRAUSTO UMICRO #### [facility] [address] [place] [address] Dr. Calin Marshall LEUKOCYTES Negative Normal NEGATIVE [facility] Comment on above: Performed By: #### Ivan FRAUSTO UMICRO #### [facility] [address] [place] [address] Dr. Calin Marshall Nitrite Ql (U) Negative Normal NEGATIVE [facility] Comment on above: Performed By: #### Ivan FRAUSTO UMICRO #### [facility] [address] [place] [address] Dr. Calin Marshall pH (U) 6.0 [pH] Normal 5-9 [facility] Comment on above: Performed By: #### Ivan FRAUSTO UMICRO #### [facility] [address] [place] [address] Dr. Calin Marshall SPEC GRAVITY <=1.005 Abnormal 1.005-<=1.025 [facility] Comment on above: Performed By: #### Ivan FRAUSTO UMICRO #### [facility] [address] [place] [address] Dr. Calin Marshall UA PROTEIN Negative Normal NEGATIVE/ TRACE [facility] Comment on above: Performed By: #### Ivan FRAUSTO UMICRO #### [facility] [address] [place] [address] Dr. Calin Marshall UR MICRO IND INDICATED Normal [facility] Comment on above: Performed By: #### Ivan FRAUSTO UMICRO #### [facility] [address] [place] [address] Dr. Calin Marshall Urobilinogen Qn (U) 0.2 {Bridger'U}/dL Normal 0.2 - 1. 0 [facility] Comment on above: Performed By: #### E KENNA FRAUSTO #### [facility] [address] [place] [address] Dr. Calin Marshall PROF 14(COMP METB)on 022 Albumin [Mass/Vol] 4.4 g/dL Normal 3.4-5.0 [facility] Comment on above: Performed By: #### C MP, LIPA #### [facility] [address] [place] [address] Dr. Calin Marshall Albumin/Globulin [Mass ratio] 1.0 {ratio} Normal [facility] Comment on above: Performed By: #### C MP, LIPA #### [facility] [address] [place] [address] Dr. Calin Marshall ALP [Catalytic activity/Vol] 93 U/L Normal 46-116 [facility] Comment on above: Performed By: #### C MP, LIPA #### [facility] [address] [place] [address] Dr. Calin Marshall ALT [Catalytic activity/Vol] 34 U/L Normal 14-59 [facility] Comment on above: Performed By: #### C MP, LIPA #### [facility] [address] [place] [address] Dr. Calin Marshall Anion gap [Moles/Vol] 17.3 mmol/L Normal [facility] Comment on above: Performed By: #### C MP, LIPA #### [facility] [address] [place] [address] Dr. Calin Marshall AST [Catalytic activity/Vol] 21 U/L Normal 15-37 [facility] Comment on above: Performed By: #### C MP, LIPA #### [facility] [address] [place] [address] Dr. Calin Marshall Bilirubin [Mass/Vol] 0.6 mg/dL Normal 0.2-1.0 [facility] Comment on above: Performed By: #### C MP, LIPA #### [facility] [address] [place] [address] Dr. Calin Marshall Calcium [Mass/Vol] 10.7 mg/dL Critically high 8.5-10.1 [facility] Comment on above: Performed By: #### C MP, LIPA #### [facility] [address] [place] [address] Dr. Calin Marshall Chloride [Moles/Vol] 96 mmol/L Critically low 98-107 [facility] Comment on above: Performed By: #### C MP, LIPA #### [facility] [address] [place] [address] Dr. Calin Marshall CO2 [Moles/Vol] 23.1 mmol/L Normal 21.0-32.0 [facility] Comment on above: Performed By: #### C MP, LIPA #### [facility] [address] [place] [address] Dr. Calin Marshall Creatinine [Mass/Vol] 0.83 mg/dL Normal 0.55-1.02 [facility] Comment on above: Performed By: #### C MP, LIPA #### [facility] [address] [place] [address] Dr. Calin Marshall EGFR-AF BELGIAN >60 Normal >=60 [facility] Comment on above: Performed By: #### C MP, LIPA #### [facility] [address] [place] [address] Dr. Calin Marshall EGFR-NON AF BELGIAN >60 Normal >=60 [facility] Comment on above: Performed By: #### C MP, LIPA #### [facility] [address] [place] [address] Dr. Calin Marshall Globulin (S) [Mass/Vol] 4.4 g/dL Normal [facility] Comment on above: Performed By: #### C MP, LIPA #### [facility] [address] [place] [address] Dr. Calin Marshall Glucose [Mass/Vol] 98 mg/dL Normal 74-106 [facility] Comment on above: Performed By: #### C MP, LIPA #### [facility] [address] [place] [address] Dr. Calin Marshall Potassium [Moles/Vol] 3.4 mmol/L Critically low 3.5-5.1 [facility] Comment on above: Performed By: #### C MP, LIPA #### [facility] [address] [place] [address] Dr. Calin Marshall Protein [Mass/Vol] 8.8 g/dL Critically high 6.4-8.2 [facility] Comment on above: Performed By: #### C YULIANA, LIPA #### [facility] [address] [place] [address] Dr. Calin Marshall Sodium [Moles/Vol] 133 mmol/L Critically low 136-145 [facility] Comment on above: Performed By: #### C YULIANA, LIPA #### [facility] [address] [place] [address] Dr. Calin Marshall Urea nitrogen [Mass/Vol] 8.0 mg/dL Normal 7.0-18.0 [facility] Comment on above: Performed By: #### C YULIANA, LIPA #### [facility] [address] [place] [address] Dr. Calin Marshall Urea nitrogen/Creatinine [Mass ratio] 9.6 mg/mg Normal [facility] Comment on above: Performed By: #### C YULIANA, LIPA #### [facility] [address] [place] [address] Dr. Calin Marshall URINE MICROSCOPIC ONLYon BACTERIA SMALL Abnormal NONE SEEN [facility] Comment on above: Performed By: #### ELDA ZHOURO #### [facility] [address] [place] [address] Dr. Calin Marshall Bacteria identified Cx Nom (U) INDICATED Normal [facility] Comment on above: Performed By: #### Ivan FRAUSTO UMICRO #### [facility] [address] [place] [address] Dr. Calin Marshall CAST NONE SEEN Normal NONE SEEN [facility] Comment on above: Performed By: #### E RUR, UMICRO #### [facility] [address] [address] [address] Calin Marshall Crystals LM Nom (Urine sed) NONE SEEN Normal NONE SEEN [facility] Comment on above: Performed By: #### E RUR, UMICRO #### [facility] [address] [address] [address] Calin Marshall Epithelial cells LM Ql (Urine sed) MODERATE Abnormal NONE SEEN /RARE [facility] Comment on above: Performed By: #### E RUR, UMICRO #### [facility] [address] [address] [address] Calin Marshall MUCOUS NONE SEEN Normal NONE SEEN [facility] Comment on above: Performed By: #### E RUR, UMICRO #### [facility] [address] [place] [address] Dr. Calin Marshall RBC 2-5 Abnormal 0-2 [facility] Comment on above: Performed By: #### E RUR, UMICRO #### [facility] [address] [address] [address] Calin Marshall WBC 2-5 Abnormal NONE SEEN [facility] Comment on above: Performed By: #### E RUR, UMICRO #### [facility] [address] [place] [address] Dr. Calin Marshall Vitamin D 25-OHon 08-09-2021 VIT D 25 OH 29 ng/ml Low >29 [facility] [employer] Comment on above: Result Comment: Baylee min D Status Deficiency <20 ng/mL Insufficiency 20-29 ng/mL Optimal 30-100 ng/mL Possible Toxicity >=150 ng/mL Performed By: #### V ITD #### [facility] [address] [place] [id number] [place] 06-15-2020 Consent [id number]. [id number]:127 Normal [facility] Registrationon 06-15-2020 Registration [id number]. [id number]:127 Normal [facility] Follow Up (Plastic Surgery)o n 07-17-2019 [...] Surgical History History of Appendectomy History of [place] tooth extraction Family History Family history of [...] Capsule *Vitals Vital Signs Recorded: 17Jul2019 09:48AM Eehxsmeavel58.2 F, Oral Ejpwxkke516 Dbfxtzwea13 Height5 ft 2.5 in Hjpojx939 lb BMI Hyxjtwtlkg07.2 BSA Calculated1.88 Pain Scale0 Physical Exam Examination reveals some erythema in both sites. I have removed the sutures from the chest incision. We have discussed scar maturation and the use of mederma or scar guard 'Scores and Scales' Signatures Electronically signed by : Vikas Garrido MD,; Jul 17 2019 10:00AM EST (Author) Normal [employer] Name NATALEE GUERRA Pathologist: BRIAN SHAH DO Date of Procedure: 06/25/2019 Date Received: 06/25/2019 Date Reported 06/27/2019 Submitting Physician: VIKAS GARRIDO MD Location: [facility] Copy To/Referring/Attending : VIKAS GARRIDO MD Other [...] 2 central area of specimen tas/06/26/2019 Normal [facility] History and Physical - Surgi endy Update [...] Certification StatementObservation patient/other outpatient visits Electronic Signatures: Vikas Garrido) (Signed 25-Jun-2019 07:07) Authored: History & Physical Reviewed, Signatures/Attestation /Certification Last Updated: 25-Jun-2019 07:07 by Vikas Garrido) [facility] Operative Reports - [place] 06-25-2019 Operative Reports - [place] PREOPERATIVE DIAGNOSIS: Mass of right neck and chest. POSTOPERATIVE DIAGNOSIS: Mass of right neck and chest. PROCEDURE: Excision of mass of right neck and chest. CENTRAL PROCESSING TECH: Henok Sanchez. ANESTHESIA: MAC. OPERATIVE INDICATIONS: The [...] Vikas Garrido MD EST EST DICTATION NUMBER: [id number] INTERNAL JOB NUMBER: [id number] CC: MIA PENA JEFFERYBrendaCRISTOPHERJordy Electronic Signatures: Vikas Garrido) (Signed on 25-Jun-2019 09:40) Authored Unsigned, Draft (SYS GENERATED) (Entered on 25-Jun-2019 09:03) Entered Last Updated: 25-Jun-2019 09:40 by Vikas Garrido) [facility] Otheron 06-25-2019 Name NATALEE GUERRA Pathologist: Mikal BENTON of Procedure: 06/25/2019Date Received: 06/25/2019Date Reported 06/27/2019Submitting Physician: VIKAS GARRIDO MDLocation: [facility] Copy To/Referring/Attending :VIKAS GARRIDO MD Other External [...] Preop Checklist Preop Checklist: Preop Checklist: Arrival [id number] Arrival Time05:51 Procedure Typecyst off neck, right and upper right chest NPO [id number] 23:00 ID Band Onyes Allergy Bandyes Consent [...] Updated: 25-Jun-2019 06:11 by Mary Jaimes (HALEY) Normal [facility] Patient Profile - Preop v2on 06-24-2019 Patient Profile - Preop v2 Profile: Initial Info: How to be AddressedHailey Spoken Language PreferredEnglish Source of Informationpatient Are you currently using the Personal Electronic Health Record or MetrolightUHCAREno Are you interested in learning more about [facility] for the management of your healthnot at this time Instructions 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 Symptoms/Conditions Commenthas Nexplanon implant; LMP 4 months ago; 4 months post- Barriers to Managing Healthnone Are You no Relationship/Environ: Resource/Environmental Concernsnone Services Anticipated at Transitionnone Lives Withspouse; dependent child(christelle) Living Arrangementshouse [facility] Substance: Current or Former Substance Use [...] material; verbal instruction Cultural Considerationsnone Developmental Considerationsnone Jehovah'S Witness Considerationsnone Other learner availableno [place] RiskPatient location auto qualifies him/her for HIGH RISK. Are there any cultural, spiritual, quaker practices/values/needs that are important for us to knowno Pain Scalenumerical 0-10 Pain Scale Educationteaching provided Current Pain Level0 = None Acceptable Pain Level6 = Moderate Expression of Pain (nonverbal)none Lifestyle Changes/Adaptations in Response to Painno change Barriers to Reporting Painnone Chronic Painno Information Review: Allergies, Home Meds and Significant Events have been Reviewed and Verified with Patient/Familyyes Electronic Signatures: Milena Clarke (HALEY) (Signed 24-Jun-2019 10:05) Authored: Mary Palacios) (Signed 25-Jun-2019 06:08) Authored: Profile, Additional Information Last Updated: 25-Jun-2019 06:08 by Mary Jaimes (HALEY) Normal [facility] APTTon 06-21-2019 aPTT Coag (Bld) [Time] 37 s Normal 28 - 38 [facility] Comment on above: Result Comment: THE APTT IS NO LONGER USED FOR MONITORING UNFRACTIONATED HEPARIN THERAPY. FOR MONITORING HEPARIN THERAPY, USE THE HEPARIN ASSAY. Performed By: #### A PTT #### [address] [id number] Activated Partial Thrombopla stin Timeon 06-21-2019 aPTT Coag (PPP) [Time] 37 {sec} 28 - 38 [facility] -Plastic Surgery-Og n Work Phone: Comment on above: THE APTT IS NO LONGE R USED FOR MONITORING UNFRACTIONATED HEPARIN THERAPY. FOR MONITORING HEPARIN THERAPY, USE THE HEPARIN ASSAY. CBC AND DIFFERENTIALon 06-21 % AUTOMATED IMMATURE GRAN 0.1 % Normal 0.0 - 0.9 [facility] Comment on above: Result Comment: Perc ent differential counts (%) should be interpreted in the context of the absolute cell counts (cells/L). Performed By: #### C BCDF #### [address] [address] Basophils (Bld) [#/Vol] 0.03 10*3/uL Normal 0.00 - 0.10 [facility] Comment on above: Performed By: #### C BCDF #### [address] [address] Eosinophils (Bld) [#/Vol] 0.04 10*3/uL Normal 0.00 - 0.70 [facility] Comment on above: Performed By: #### C BCDF #### [address] [address] Lymphocytes (Bld) [#/Vol] 3.08 10*3/uL Normal 1.20 - 4.80 [facility] Comment on above: Performed By: #### C BCDF #### [address] [address] Monocytes (Bld) [#/Vol] 0.49 10*3/uL Normal 0.10 - 1.00 [facility] Comment on above: Performed By: #### C BCDF #### [address] [address] Neutrophils (Bld) [#/Vol] 5.85 10*3/uL Normal 1.20 - 7.70 [facility] Comment on above: Performed By: #### C BCDF #### [address] [address] Platelets (Bld) [#/Vol] 363 10*3/uL Normal 150 - 450 [facility] Comment on above: Performed By: #### C BCDF #### [address] [address] RBC (Bld) [#/Vol] 4.68 x10E12/L Normal 4.00 - 5.20 [facility] Comment on above: Performed By: #### C BCDF #### [address] [address] WBC (Bld) [#/Vol] 9.5 10*3/uL Normal 4.4 - 11.3 [facility] Comment on above: Performed By: #### C BCDF #### [facility] [address] [place] [address] Basophils/100 WBC (Bld) 0.3 % 0.0 - 2.0 [facility] Work Phone: Comment on above: Performed By: #### C BCDF #### [facility] [address] [place] [address] Eosinophils/100 WBC (Bld) 0.4 % 0.0 - 6.0 [facility] Work Phone: Comment on above: Performed By: #### C BCDF #### [address] [address] Erythrocyte distribution width (RBC) [Ratio] 11.9 % See Below [facility] Work Phone: Comment on above: Performed By: #### C BCDF #### [address] [address] Reference Range: 11. 5 - 14.5 Hematocrit (Bld) [Volume fraction] 41.6 % See Below [facility] Work Phone: Comment on above: Performed By: #### C BCDF #### [address] [address] Reference Range: 36. 0 - 46.0 Hemoglobin (Bld) [Mass/Vol] 13.9 g/dL See Below [facility] Work Phone: Comment on above: Performed By: #### C BCDF #### [address] [address] Reference Range: 12. 0 - 16.0 Lymphocytes/100 WBC (Bld) 32.4 % See Below [facility] Work Phone: Comment on above: Performed By: #### C BCDF #### [address] [address] Reference Range: 13. 0 - 44.0 MCHC (RBC) [Mass/Vol] 33.4 g/dL See Below [facility] Work Phone: Comment on above: Performed By: #### C BCDF #### [address] [address] Reference Range: 32. 0 - 36.0 MCV (RBC) [Entitic vol] 89 fL 80 - 100 [facility] Work Phone: Comment on above: Performed By: #### C BCDF #### [address] [address] Monocytes/100 WBC (Bld) 5.2 % 2.0 - 10.0 [facility] Work Phone: Comment on above: Performed By: #### C BCDF #### [address] [address] Neutrophils/100 WBC (Bld) 61.6 % See Below [facility] Work Phone: Comment on above: Performed By: #### C BCDF #### [address] [address] Reference Range: 40. 0 - 80.0 [facility] 2018 Albumin [Mass/Vol] 4.8 g/dL Normal 3.4 - 5.0 [facility] Comment on above: Performed By: #### C MP #### [address] [address] ALP [Catalytic activity/Vol] 83 U/L Normal 33 - 110 [facility] Comment on above: Performed By: #### C MP #### [address] [address] ALT [Catalytic activity/Vol] 15 U/L Normal 7 - 45 [facility] Comment on above: Result Comment: Janet ents treated with Sulfasalazine may generate falsely decreased results for ALT. Performed By: #### C MP #### [facility] [address] [place] [address] Anion gap [Moles/Vol] 11 mmol/L Normal 10 - 20 [facility] Comment on above: Performed By: #### C MP #### [facility] [address] [place] [address] AST [Catalytic activity/Vol] 12 U/L Normal 9 - 39 [facility] Comment on above: Performed By: #### C MP #### [address] [address] Bilirubin [Mass/Vol] 0.3 mg/dL Normal 0.0 - 1.2 [facility] Comment on above: Performed By: #### C MP #### [facility] [address] [place] [address] Calcium [Mass/Vol] 10.7 mg/dL High 8.6 - 10.3 [facility] Comment on above: Performed By: #### C MP #### [address] [address] Chloride [Moles/Vol] 102 mmol/L Normal 98 - 107 [facility] Comment on above: Performed By: #### C MP #### [address] [address] Creatinine [Mass/Vol] 0.80 mg/dL Normal 0.50 - 1.05 [facility] Comment on above: Performed By: #### C MP #### [address] [address] GFR- AM. >60 Normal >60 [facility] Comment on above: Result Comment: CALC ULATIONS OF ESTIMATED GFR ARE PERFORMED USING THE MDRD STUDY EQUATION FOR THE IDMS-TRACEABLE CREATININE METHODS. CLIN CHEM 2007;53:766-72 Performed By: #### C MP #### [address] [address] GFR-NON AM. >60 Normal >60 [facility] Comment on above: Performed By: #### C MP #### [facility] [address] [place] [address] Glucose [Mass/Vol] 82 mg/dL Normal 74 - 99 [facility] Comment on above: Performed By: #### C MP #### [address] [address] HCO3 (Bld) [Moles/Vol] 26 mmol/L Normal 21 - 32 [facility] Comment on above: Performed By: #### C MP #### [address] [address] Potassium [Moles/Vol] 4.1 mmol/L Normal 3.5 - 5.3 [facility] Comment on above: Performed By: #### C MP #### [address] [address] Protein [Mass/Vol] 8.2 g/dL Normal 6.4 - 8.2 [facility] Comment on above: Performed By: #### C MP #### [address] [address] Sodium [Moles/Vol] 135 mmol/L Low 136 - 145 [facility] Comment on above: Performed By: #### C MP #### [address] [address] Urea nitrogen [Mass/Vol] 16 mg/dL Normal 6 - 23 [facility] Comment on above: Performed By: #### C MP #### [address] [address] Complete Blood Count + Diffe rentialon 06-21-2019 Basophils (Bld) [#/Vol] 0.03 {x10E9/L} See [...] QUALITATIVEon 06-09 HCG,SERUM QUALITATIVE Negative Normal Negative [facility] Comment on above: Performed By: #### H CGS #### [address] [address] Hematologyon 06-21-2019 INR Coag (PPP) [Relative time] 1.1 {INR} 0.9 - 1.1 [facility] Work Phone: PT Coag (PPP) [Time] 12.3 {sec} 9.7 - 12.7 [facility] Work Phone: Metabolic Panelon 06-21-2019 ALP [Catalytic activity/Vol] 83 U/L 33 - 110 [facility] Work Phone: [phone] Anion gap [Moles/Vol] 11 mmol/L 10 - [...] time] 1.1 {INR} Normal 0.9 - 1.1 [facility] Comment on above: Performed By: #### P TINR #### [facility] [address] [place] [address] PT Coag (PPP) [Time] 12.3 s Normal 9.7 - 12.7 [facility] Comment on above: Performed By: #### P TINR #### [facility] [address] [place] [address] Vital Signs Date Time Vital Sign Value Performing Clinician Facility 02-26-2023 08:42-0400 Body temperature 97.6 [degF] PHYSICIAN NO [facility] 02-26-2023 08:42-0400 Diastolic blood pressure 90 mm[Hg] PHYSICIAN NO [facility] 02-26-2023 08:42-0400 Heart rate 89 /min PHYSICIAN NO [facility] 02-26-2023 08:42-0400 Respiratory rate 16 /min PHYSICIAN NO [facility] 02-26-2023 08:42-0400 SaO2% (BldA) [Mass fraction] 100 % PHYSICIAN NO [facility] 02-26-2023 08:42-0400 Systolic blood pressure 135 mm[Hg] PHYSICIAN NO [facility] 02-23-2023 09:26-0400 Body height 154.94 cm PHYSICIAN NO [facility] 02-23-2023 09:26-0400 Body weight 81.64 kg PHYSICIAN NO [facility] 10-07-2022 03:06-0400 Body weight 80.[address] RACHID GLEZ . [facility] Comment on above: Performed By: #### AFPMAT #### [facility] [address] [place] [address] Dr. Calin Marshall 07-17-2019 11:48-0500 BMI (Body Mass Index) 34.2 kg/m2 Vikasargelia Henleys [facility] Work Phone: 07-17-2019 11:48-0500 Body Temperature 99.2 [degF] Vikasargelia Henleys [facility] Work Phone: Comment on above: Method: Oral 07-17-2019 11:48-0500 Body weight 86.18 kg Vikasargelia Henleys [facility] Work Phone: 07-17-2019 11:48-0500 BP Diastolic 92 mm[Hg] Vikas Jeremiah [facility] Work Phone: 07-17-2019 11:48-0500 BP Systolic 150 mm[Hg] Vikas Jeremiah [facility] Work Phone: 07-17-2019 11:48-0500 BSA (Body Surface Area) 1.88 m2 Vikas Jeremiah [facility] Work Phone: 07-17-2019 11:48-0500 Height 158.75 cm Vikas Jeremiah [facility] Work Phone: 07-17-2019 11:48-0500 0 1 Vikas Jeremiah [facility] Work Phone: Comment on above: Pain Scale 06-21-2019 11:01-0500 BMI (Body Mass Index) 32.94 kg/m2 Vikas Jeremiah [facility] Work Phone: 06-21-2019 11:01-0500 Body weight 83.01 kg Vikas Jeremiah [facility] Work Phone: 06-21-2019 11:01-0500 BP Diastolic 80 mm[Hg] Vikas Jeremiah [facility] Work Phone: Comment on above: Location: [facility]; Position: Sitting 06-21-2019 11:01-0500 BP Systolic 138 mm[Hg] Vikas Jeremiah [facility] Work Phone: Comment on above: Location: [facility]; Position: Sitting 06-21-2019 11:01-0500 BSA (Body Surface Area) 1.85 m2 Vikas Jeremiah [facility] Work Phone: 06-21-2019 11:01-0500 Height 158.75 cm Vikas Jeremiah [facility] Work Phone: 06-21-2019 11:01-0500 0 1 Vikas Jeremiah [facility] Work Phone: Comment on above: Pain Scale Encounters Encounter Date Encounter Type Care Provider Facility Start: 11-22-2023 End: 11-22-2023 ambulatory HUI Ivan POLLOCK [facility] Start: 02-27-2023 End: 02-27-2023 ambulatory Celestina Ely Facility:[facility] Start: 02-27-2023 End: 02-27-2023 ambulatory PHYSICIAN NO [facility] Work Phone: Start: 02-27-2023 End: 02-27-2023 Patient encounter procedure PHYSICIAN NO [facility]- Visit Work Phone: Start: 02-23-2023 End: 02-26-2023 Evaluation and management of inpatient Diana Nataustinawira Facility:[facility] Start: 02-23-2023 End: 02-26-2023 Evaluation and management of inpatient PHYSICIAN NO FAMILY [facility] Work Phone: Start: 01-31-2023 End: 01-31-2023 ambulatory PHYSICIAN NO FAMILY Facility:[facility] Start: 01-31-2023 End: 01-31-2023 ambulatory DO Diana Nataustinawira Work Phone: [facility] Work Phone: Start: 01-31-2023 End: 01-31-2023 Departed Referred DO Diana Nataprawira Work Phone: [facility] [place] Work Phone: Start: 10-19-2022 End: 10-20-[address] RACHID GLEZ . Facility:[facility] Start: 10-05-2022 End: 10-06-[address] RACHID GLEZ . Facility:[facility] Start: 09-07-2022 Encounter for gynecological examination (general) (routine) without abnormal findings DR RACHID GLEZ . [facility] Start: 09-05-2022 End: 09-05-[address] [...] Start: 07-17-2019 Patient encounter procedure Vikas Garrido [facility] Work Phone: Start: 06-21-2019 Patient encounter procedure Vikas Garrido [facility] Work Phone: Patient encounter status Mia Mckinley [facility] Work Phone: Procedures Date Procedure Procedure Detail Performing Clinician Start: 02-23-2023 Antibody screen PHYSICI AN NO FAMILY Comment on above: Result Comment: PERF ORMED BY: [facility] [address] [place] [address] PATHOLOGIST [employer] TECHNICIAN FLORY JAIN M.D. Start: 02-23-2023 Urine culture PHYSICIAN NO FAMILY Start: 01-31-2023 Group B Streptococcus Culture PHYSICIAN NO FAMILY Start: 06-21-2019 Thromboplastin time partial plasma/whole blood Vikas Garrido Start: 06-21-2019 Follow-up visit Appendectomy Vikas Garrido Extraction of wisdom tooth R olargelia Garrido H/O: section S/P PHYSI LELE NO FAMILY Plan of Treatment Date Care Activity Detail Author Start: 02-26-2023 [facility] Start: 02-24-2023 Hospital admission [facility] Start: 01-31-2023 Following clinical pathway protocol [facility] Start: 01-31-2023 Group B Streptococcus Culture Group B Streptococcus Culture [facility] Patient Education Post- Di reynaldo Instructions ([facility] [facility] Work Phone: Patient referral [facility] Work Phone: Immunizations Immunization Date Immunization Notes Care Provider Fa cility 02-24-2023 tetanus toxoid, redu ramila diphtheria toxoid, and acellular pertussis vaccine, adsorbed PHYSICIAN NO FAMILY [facility] Payers Date Payer Category Payer Unknown [id number] 1995 Unknown [id number] 2.16.84 [id number] 1993 Unknown [id number] 2.16.84 [id number] 1993 Unknown [id number] 2.16.84 [id number] 1993 Unknown [id number] 2.16.84 [id number] 1993 Unknown [id number] 2.16.84 [id number] 1993 Unknown [id number] 2.16.84 [id number] 1993 Unknown [id number] 2.16.84 [id number] 1993 Unknown [id number] 2.16.84 [id number] 1993 Unknown [id number] 2.16.8 40.1.319542.3.579.2.1286 1993 Unknown [id number] 2.16.8 [id number] 1993 Unknown [id number] 2.16.8 [id number] 1959 Self-pay 1959 Unknown [id number] 1959 Unknown [id number] Unknown [id number] 2.16.84 [id number] Unknown HCAP/HFA/FAP Active [id number] Unknown [id number] 2.16.8 [id number] Unknown [id number] 2.16.8 [id number] Unknown [id number] 2.16.8 [id number] Social History Date Type Detail Facility Start: 1995 Sex Assigned At Female F [facility] Start: 02-23-2023 Tobacco smoking status NHIS Never smoked tobacco (finding) [facility] NEGATED: Highlighted row - - [facility] Work Phone: Goals Date Patient Goal Desired Activity /State Functional Status Date Assessment Result Facility 02-26-2023 Functional status Patient at Baseline [facility] Work Phone: NEGATED: Highlighted row Functional performance Functional status health issues are not documented Disease [facility] Work Phone: Mental Status Date Assessment Result Facility 02-26-2023 Cognitive function Cognitive Sta tus Patient at Baseline [facility] Work Phone: NEGATED: Highlighted row Cognitive function [Interpretation] Cognitive status health issues are not documented Disease [facility] Work Phone: Progress note 02-26-2023 Note Date & Type Note Facility 02-26-2023 Progress note Note Date/Time February 26, 2023 9:01am [facility] [address] [place] [address] SALES AND SERVICE ASSOCIATE Progress Note Signed Patient: Natalee Guerra MR#: [id number] : 1995 Acct:[id number] Age/Sex: 27 / F Adm Date: 3 Loc: 3S Room: [address] [place] [address] Type: ADM IN Attending Dr: Diana Sorenson DO Copies to: ~ Date of Service: 02/26/2023 OB - PN: Subj Subjective Post Delivery Day #: Day 3 Interval history: Patient doing well, no concerns. Feels much better today, no gas pains. Tolerating PO well, passing flatus Patient comments: pain well controlled, tolerating diet, flatus present (flatus present, no BM) and other; no incisional pain [place] baby status: doing well [place] feeding status: exclusively breast feeding OB - [...] % (Auto) 78.0, Lymph % (Auto) 14.7, [place] % (Auto) 6.6, Eos % (Auto) 0.3, Baso % (Auto) 0.4, Nucleat RBC Rel Count 0.0, Neut# (Auto) 12.2 H, Lymph # (Auto) 2.3, [place] # (Auto) 1.0 H, Eos # (Auto) [...] 35 Signed By: <Electronically signed by Mitra Degroot, > 02/26/23 0901 [facility] Work Phone: Progress note 02-25-2023 Note Date & Type Note Facility 02-25-2023 Progress note Note Date/Time February 25, 2023 9:32am [facility] [address] [place] [address] SALES AND SERVICE ASSOCIATE Progress Note Signed Patient: Natalee Guerra MR#: [id number] : 1995 Acct:[id number] Age/Sex: 27 / F Adm Date: 3 Loc: Room: [address] [place] [address] Type: ADM IN Attending Dr: Diana Sorenson [...] night) and flatus present; no incisional pain baby status: doing well [place] feeding status: exclusively breast feeding OB - [...] % (Auto) 77.7, Lymph % (Auto) 15.8, [place] % (Auto) 6.3, Eos % (Auto) 0.0, Baso % (Auto) 0.2, Nucleat RBC Rel Count 0.0, Neut# (Auto) 15.1 H, Lymph # (Auto) 3.1, [place] # (Auto) 1.2 H, Eos # (Auto) [...] signed by Mitra Degroot DO> 02/25/[address] [facility] Work Phone: Progress note 02-24-2023 Note Date & Type Note Facility 02-24-2023 Progress note Note Date/Time February 24, 2023 11:53am [facility] [address] [place] [address] SALES AND SERVICE ASSOCIATE Progress Note Signed Patient: Natalee Guerra MR#: [id number] : 1995 Acct:[id number] Age/Sex: 27 / F Adm Date: 3 Loc: Room: [address] [place] [address] Type: ADM IN Attending Dr: Diana Sorenson [...] eaten since but has been drinking fluids.) [place] baby status: doing well and nursing well [...] % (Auto) 70.6, Lymph % (Auto) 23.1, [place] % (Auto) 5.5, Eos % (Auto) 0.4, Baso % (Auto) 0.4, Nucleat RBC Rel Count 0.0, Neut# (Auto) 9.0 H, Lymph # (Auto) 2.9, [place] # (Auto) 0.7, Eos # (Auto) 0.0, Baso # (Auto) 0.0 02/23/23 09:48: RPR w/Rflx to Titer Non reactive 02/23/23 09:34: Urine Opiates Screen Negative, Ur Barbiturates Screen Negative, Ur Phencyclidine Scrn Negative, Ur Amphetamines Screen Negative, U Benzodiazepines Scrn Negative, Urine Cocaine Screen Negative 02/23/23 09:34: Urine Color Yellow, Urine Appearance Cloudy A, Urine pH 7.0, Ur Specific [place] 1.016, Urine Protein 30 H, Urine Glucose [...] <Electronically signed by CHRISTIANO Kendall> 02/24/[address] [facility] Work Phone: Procedure note 02-23-2023 Note Date & Type Note Facility 02-23-2023 Procedure note [facility] Evaluation note Note Date & Type Note Facility Evaluation note No assessment information availa [facility] Work Phone: Evaluation note Note Date & Type Note Facility Evaluation note Diagnosis Onset Date delivery delivered acute [facility] Work Phone: Instructions Note Date & Type Note Facility Instructions Name Instructions not documented [facility] Work Phone: Summary Purpose Family History No [...] 4. 5. 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 [employer]: trav Estimated Blood Loss (mL): minimal Specimen: [...] section and content) DATE CREATED AUTHOR 07/02/2019 [facility] DATE CREATED AUTHOR AUTHOR'S ORGANIZ ATION 07/17/2019 [employer] DATE CREATED AUTHOR AUTHOR'S ORGANIZ ATION 06/16/2020 [facility] DATE CREATED AUTHOR AUTHOR'S ORGANIZ ATION 08/10/2021 [facility] dical Specialist DATE CREATED AUTHOR AUTHOR'S ORGANIZ ATION 10/24/2022 [facility] DATE CREATED AUTHOR AUTHOR'S ORGANIZ ATION 02/07/2023 [facility] DATE CREATED AUTHOR AUTHOR'S ORGANIZ ATION 03/07/2023 [facility] DATE CREATED AUTHOR AUTHOR'S ORGANIZ ATION 11/30/2023 [facility] Care Teams (unrecognized sec tion [...] DO Admit Provider, Attending Provid er Active MUNDO Jennings Primary Care Provider Active Team [...] BE BASED ON THE PRIMARY CLINICAL RECORDS. [facility] [employer] [facility]. provides no warranty or guarantee of the accuracy or completeness of information in this document.
--- NOTE | 2023-12-01 08:26 | ED_ITS ---
HPI - Nausea/Vomiting/Diarrhea General Chief complaint: Abdominal Pain Stated complaint: ABDOMINAL PAIN, VOMITING, POST SURGERY Time Seen by Provider: 12/01/23 08:21 Source: patient Mode of arrival: walk-in History of Present Illness HPI Narrative: 28-year-old female presents for nausea and vomiting. She is postop day 1 from cholecystectomy. She started vomiting an hour after she got home yesterday. No fever. Related Data Home Medications ?Medication ?Instructions ?Recorded ?Confirmed hydrocodone 5 mg-acetaminophen 325 tab 11/27/23 mg tablet ondansetron HCl 4 mg tablet mg 11/27/23 Previous Rx's ?Medication ?Instructions ?Recorded hydrocodone 5 mg-acetaminophen 325 1 tab PO Q6H PRN pain 5 days #20 11/27/23 mg tablet tabs ondansetron 4 mg disintegrating 4 mg PO Q6H PRN nausea and 11/27/23 tablet vomiting #20 tabs Allergies Allergy/AdvReac Type Severity Reaction Status Date / Time amoxicillin AdvReac Mild Hives Verified 11/27/23 02:23 Review of Systems ROS Narrative A ten point review of systems is negative except as noted above. Exam Narrative Exam Narrative: Nurses note and vital signs reviewed and patient is not hypoxic. General: The patient appears uncomfortable. Skin: Warm, dry, no pallor noted. There is no rash noted. Head: Normocephalic, atraumatic Eye: Sclera are icteric Ears, Nose, Mouth, and Throat: oral mucosa is moist. Nares patent. Cardiovascular: Regular Rate and Rhythm Respiratory: Patient is in no distress, no accessory muscle use, lungs are clear to auscultation, no wheezing, rales or rhonchi, mildly tachypneic Back: non-tender GI: Mild tenderness Musculoskeletal: The patient has no evidence of calf tenderness, no pitting edema, symmetrical pulses noted bilaterally Neurological: A&O, normal speech Psychiatric: Cooperative Constitutional Vital Signs, click to edit/add: Last Vital Signs Temp 97.7 F 12/01/23 08:10 Pulse 90 12/01/23 10:53 Resp 18 12/01/23 10:53 BP 170/100 H 12/01/23 10:53 Pulse Ox 99 12/01/23 10:53 O2 Del Method Room Air 12/01/23 08:10 Course Vital Signs Vital signs: Vital Signs Temperature 97.7 F 12/01/23 08:10 Pulse Rate 83 12/01/23 08:10 Respiratory Rate 16 12/01/23 08:10 Blood Pressure 166/108 H 12/01/23 08:10 Pulse Oximetry 98 12/01/23 08:10 Oxygen Delivery Method Room Air 12/01/23 08:10 Temperature 97.7 F 12/01/23 08:10 Pulse Rate 90 12/01/23 10:53 Respiratory Rate 18 12/01/23 10:53 Blood Pressure 170/100 H 12/01/23 10:53 Pulse Oximetry 99 12/01/23 10:53 Oxygen Delivery Method Room Air 12/01/23 08:10 MDM - Nausea/Vomiting/Diarrhea MDM Narrative Medical decision making narrative: The patient has elevated LFTs and elevated bilirubin. Case discussed with her general surgeon, Dr. Betts. She likely has stone in common duct and needs ERCP. This procedure is not available at this hospital or at [facility]. The patient is requesting transfer to [facility] and this is being accomplished. I have spoken to gastroenterology service as well as the hospitalist service and the patient is excepted there. She is agreeable and stable for transfer. She has required pain medication here and was also given IV Zosyn. Differential Diagnosis Differential diagnosis: Likely other (Common bile duct stone, postoperative pain, hepatitis, bowel obstruction) Lab Data Attestation: I reviewed the patient's lab results. Labs: Lab Results 12/01/23 Range/Units 08:21 WBC 19.4 H (4.0-11.0) 10^3/uL RBC 4.94 (4.20-5.40) 10^6/uL Hgb 14.7 (12.0-16.0) g/dL Hct 43.6 (36.0-48.0) % MCV 88.3 (81.0-99.0) fL MCH 29.8 (26.7-34.0) pg MCHC 33.7 (29.9-35.2) g/dL RDW 13.1 (11.0-15.0) % Plt Count 406 (150-450) 10^3/uL MPV 9.9 (9.5-13.5) fL Neut % (Auto) 84.4 H (43.0-75.0) % Lymph % (Auto) 7.9 L (20.5-60.0) % Ashe % (Auto) 7.1 (1.7-12.0) % Eos % (Auto) 0.0 L (0.9-7.0) % Baso % (Auto) 0.2 (0.2-2.0) % Neut # (Auto) 16.4 H (1.4-6.5) 10^3/uL Lymph # (Auto) 1.5 (1.2-3.8) 10^3/uL Ashe # (Auto) 1.4 H (0.3-0.8) 10^3/uL Eos # (Auto) 0.0 (0.0-0.7) 10^3/uL Baso # (Auto) 0.0 (0.0-0.1) 10^3/uL Abs Immat Gran (auto) 0.08 H (0.00-0.03) 10^3/uL Imm/Tot Granulo (auto) 0.4 (0.0-0.5) % Sodium 134 L (136-145) mmol/L Potassium 4.2 (3.5-5.1) mmol/L Chloride 96 L (98-107) mmol/L Carbon Dioxide 18.5 L (21.0-32.0) mmol/L Anion Gap 23.7 BUN 8.0 (7.0-18.0) mg/dL Creatinine 0.65 (0.55-1.02) mg/dL Est GFR ( Amer) >60 (>=60) Est GFR (Non-Af Amer) >60 (>=60) BUN/Creatinine Ratio 12.3 Glucose 84 (74-106) mg/dL Calcium 10.2 H (8.5-10.1) mg/dL Total Bilirubin 7.6 H (0.2-1.0) mg/dL Direct Bilirubin 4.6 H* (0.0-0.2) mg/dL AST 198 H (15-37) U/L ALT 522 H* (14-59) U/L Alkaline Phosphatase 260 H (46-116) U/L Total Protein 8.9 H (6.4-8.2) g/dL Albumin 4.2 (3.4-5.0) g/dL Globulin 4.7 g/dL Albumin/Globulin Ratio 0.9 Amylase 29 (25-115) U/L Lipase 30.0 (16.0-77.0) U/L Serum HCG, Qual Negative (NEGATIVE) Discharge Plan Discharge Chief Complaint: Abdominal Pain Clinical Impression: Elevated LFTs, Elevated bilirubin Patient Disposition: [facility] Time of Disposition Decision: 11:58 Discharge Location: [facility] Condition: Good Mode of Transportation: Private Vehicle
[2023-12-01] MEDS: 0.9 % SODIUM CHLORIDE 1,000 ML 1000 ML IV (08:33)
[2023-12-01] MEDS: ONDANSETRON PF 4 MG/2 ML VIAL IV ×3 (08:33→14:00)
[2023-12-01 08:44] LABS: Basophils Percent Auto 0.2 % (0.2-2.0); Hematocrit 43.6 % (36.0-48.0); Hemoglobin 14.7 g/dL (12.0-16.0); Immature Granulocytes Abs Auto 0.08 10^3/uL (0.00-0.03); Immature Granulocytes Pct Auto 0.4 % (0.0-0.5); Lymphocytes Absolute Auto 1.5 10^3/uL (1.2-3.8); Lymphocytes Percent Auto 7.9 % (20.5-60.0); Mean Corpuscular HGB Conc 33.7 g/dL (29.9-35.2); Mean Corpuscular Hemoglobin 29.8 pg (26.7-34.0); Mean Corpuscular Volume 88.3 fL (81.0-99.0); Mean Platelet Volume 9.9 fL (9.5-13.5); Monocytes Absolute Auto 1.4 10^3/uL (0.3-0.8); Monocytes Percent Auto 7.1 % (1.7-12.0); Neutrophils Absolute Auto 16.4 10^3/uL (1.4-6.5); Neutrophils Percent Auto 84.4 % (43.0-75.0); Platelet Count 406 10^3/uL (150-450); Red Blood Count 4.94 10^6/uL (4.20-5.40); Red Cell Distribution Width 13.1 % (11.0-15.0); White Blood Count 19.4 10^3/uL (4.0-11.0)
[2023-12-01 08:46] LABS: HCG Qualitative NEGATIVE (NEGATIVE)
[2023-12-01 08:49] LABS: Albumin Globulin Ratio 0.9; Albumin Level 4.2 g/dL (3.4-5.0); Alkaline Phosphatase 260 U/L (46-116); Amylase 29 U/L (25-115); Anion Gap 23.7; Aspartate Amino Transferase 198 U/L (15-37); BUN Creatinine Ratio 12.3; Bilirubin Total 7.6 mg/dL (0.2-1.0); Calcium 10.2 mg/dL (8.5-10.1); Carbon Dioxide 18.5 mmol/L (21.0-32.0); Chloride 96 mmol/L (98-107); Estimated GFR (African America >60 (>=60); Estimated GFR (Non-African Ame >60 (>=60); Globulin 4.7 g/dL; Glucose 84 mg/dL (74-106); Potassium 4.2 mmol/L (3.5-5.1); Sodium 134 mmol/L (136-145); Total Protein 8.9 g/dL (6.4-8.2)
[2023-12-01 09:01] LABS: Alanine Aminotransferase 522 U/L (14-59); Bilirubin Direct 4.6 mg/dL (0.0-0.2)
[2023-12-01] MEDS: MORPHINE SULFATE 4 MG/ML VIAL IV ×2 (09:24→09:42)
[2023-12-01 10:53] VITALS: BP 170/100; PULSE 90; O2SAT 99
[2023-12-01] MEDS: HYDROMORPHONE HCL 1 MG/ML CARTRIDGE IVP (11:14)
[2023-12-01] MEDS: PIPERACILLIN SODIUM/TAZOBACTAM 3.375 GM in 0.9 % SODIUM CHLORIDE 50 ML IV (12:08)
[2023-12-01 12:11] VITALS: BP 149/92; PULSE 81; TEMP 36.9; O2SAT 99
[2023-12-01] MEDS: HYDROMORPHONE HCL 1 MG/ML CARTRIDGE IV (14:02)
[2023-12-01 15:48] VITALS: BP 163/98; PULSE 105; O2SAT 100
== END 2023-12-01 17:04 | disposition short-term general hospital (02) ==
PROVIDERS: Emergency Provider Emergency Medicine
DX: R79.89 Other specified abnormal findings of blood chemistry (principal); E80.6 Other disorders of bilirubin metabolism; Z90.49 Acquired absence of other specified parts of digestive tract
CPT/HCPCS: 36415; 80048; 80076; 82150; 83690; 84703; 85025; 96361; 96365; 96375; 96376; 99285; J1170

== ENCOUNTER 2023-12-08 08:42 | Outpatient (OUT) | payer BC, SELFPAY ==
--- OUTSIDE RECORDS SUMMARY | 2023-12-08 09:02 | XMS_ITS | CCD ---
Author Organization [facility] Care Team Providers Care Director [facility] Name Role Phone Jeremiah, Vikas Unavailable Unavailable [...] Unavailable JENNIFER, DR JOSEPH Attending Unavailable AICHHOLZ, INFORMATION COORDINATOR MIA Primary Care Unavailable KARASIK ., DR RASHID Admitting Unavailabl e KARASIK ., DR RASHID Attending Unavailabl e REQUEST, NONE LISTED Primary Care Unavaila ble KARASIK ., DR RASHID Consulting Unavailabl e KARASIK ., DR RASHID Admitting Unavailabl e NEWTON ., DR RASHID Attending Unavailabl e [facility], DR ELAINE Primary Care Unavailable NEWTON ., DR RASHID Consulting Unavailabl e BLACKWELL, DR CALDERON Young Consulting Unavailable Nataprawira, DO Diana Attending Provider NO FAMILY, PHYSICIAN Primary Care Provider Unava ilable Nataprawira, DO Diana Admit Provider MUNDO Ely Primary Care Provider MD Lilia Huber Attending Provider [phone] NO FAMILY, PHYSICIAN Primary Care Unavailable Nataprawira, Diana Admitting Unavailable Nataprawira, Diana Attending Unavailable Warnadira, Celestina Primary Care Unavailable Lilia Huber Admitting Unavailable Lilia Huber Attending Unavailable Nataprawira, Diana Admitting Unavailable Nataprawira, Diana Attending Unavailable Warnadira, Celestina Primary Care Unavailable NO PCP, NO PCP Primary Care Unavailable HUI POLLOCK Attending Unavailable NO PCP, NO PCP Primary Care Unavailable HUI POLLOCK Referring Unavailable NO PCP, NO PCP Primary Care Unavailable HUI POLLOCK Referring Unavailable NO PCP, NO PCP Primary Care Unavailable HUI POLLOCK Admitting Unavailable DIRKILLIHUI Pride Attending Unavailable HUI POLLOCK Referring Unavailable NO PCP, NO PCP Primary Care Unavailable JUDI HUMPHREYS Attending Unavailable NO PCP, NO PCP Primary Care Unavailable Allergies Allergy Classification Reported Allergen(s) Allergy Type Date of Onset Reaction(s) Facility Penicillins (antibiotic) (1 source) Amoxicillin Drug Allergy [facility] Work Phone: (11 sources) Amoxicillin; Translations: [Amoxicillin] Drug All[facility] Medications Current Medications Medication Drug Class(es) [...] Q6H 60 February 23, 2023 12:00am Pnv,Calcium 27-Fiuj-Ulclc Acid (M-Liza Plus) 27 mg iron- 1 mg tablet (2 sources) Start: 02-23-2023 Pnv,Calcium 21-Iwon-Gwcva Acid (M-Liza Plus) 27 mg iron- 1 [...] Date Documented Date Episodic/Chronic Biliary tract disease (3 sources) Calculus of gallbladder with chronic cholecystitis without obstruction; Translations: [Calculus of gallbladder with acute cholecystitis without obstruction] Onset: 11-22-2023 Episodic Calculus [...] 01-31-2023 Unclassified (1 source) Cholelithiasis Onset: 11-22-2023 Unclassified (1 source) cholelithiasis, chronic cholecystitis Onset: 11-30-2023 Past or Other Problems Problem Classification Problem Date Documented Da te Episodic/Chronic Fluid and electrolyte disorders (1 source) Dehydration; Translations: [DEHYDRATION] Onset: 07-14-2022 Episodic Other aftercare (1 source) Other oil heaterman (current) drug therapy; Translations: [OTH USP CURRENT DRUG THERAPY] Onset: 07-12-2022 Episodic Other [...] Test Name Value Interpretation Reference Range Facil gualberto Surgical Pathologyon 024 Surgical Pathology Normal [facility] Comment on above: Result Comment: [facility] [address] [place] [address] Surgical Pathology Consultation Patient Name:NATALEE GUERRA:1995 (Age: 28)Gender:FTaken:4Reported:12/05/2023hysician(s):Lelo Pollock D.O. ([phone])Copy To: Rec. #:[id number]: #[id number] Final Pathologic Diagnosis Gallbladder, cholecystectomy: Cholesterolosis. Cholelithiasis. Benign lymph node. Report Electronically Signed Out nxk/12/05/2023Paolo Dc MD Interpretation performed at [facility], [address] [place] [address], License number: [id number]. Clinical History Cholelithiasis, chronic cholecystitis. Gross Description Received in formalin labeled myron, gallbladder is a disrupted gallbladder, 7.5 x 3 x 2.5 cm, with cystic duct, 0.3 cm in diameter. A 0.9 cm periductal lymph node is identified, serially section, and entirely submitted in cassette A. The serosa is garcía-blue, smooth and glistening; the hepatic bed is rough and irregular with a 0.2 cm transmural defect noted near the fundus. The specimen is opened to exude a cabello-green, viscous bile with numerous (at least 30), cabello-green, multifaceted calculi (0.3 to 0.5 cm in greatest dimension), 3.5 x 2.5 x 1 cm in aggregate. The mucosa is cabello-green and velvety. The wall of the gallbladder ranges from 0.1 to 0.3 cm in thickness. Possum Trapper sections of the gallbladder are submitted in cassette B. (2, ss, [id number], A???B, m2) [facility]12/01/2023SSI Specimen(s) Received Gallbladder Fee Codes(s): 1; 76205 COMPLETE BLOOD COUNTon 11-28 Erythrocyte distribution width (RBC) [Ratio] 13.0 % Normal 11.5-15.0 [facility] Comment on above: Performed By: #### C BC CMP, 3039-3 #### [facility] ([id number]) [address], [address] [place] [address] Hematocrit (Bld) [Volume fraction] 39.5 % Normal 35-47 [facility] Comment on above: Performed By: #### Karina BC CMP, 3039-3 #### [facility] ([id number]) [address] [address] [place] [address] Hemoglobin (Bld) [Mass/Vol] 13.2 g/dL Normal 11.7-15.5 [facility] Comment on above: Performed By: #### Karina BC, CMP, 3039-3 #### [facility] ([id number]) [address], [address] [place] [address] MCH (RBC) [Entitic mass] 29.7 pg Normal 27-34 [facility] Comment on above: Performed By: #### Karina BC CMP, 3039-3 #### [facility] ([id number]) [address], [address] [place] [address] MCHC (RBC) [Mass/Vol] 33.5 g/dL Normal 32-36 [facility] Comment on above: Performed By: #### Karina BC, CMP, 3039-3 #### [facility] ([id number]) [address], [address] [place] [address] MCV (RBC) [Entitic vol] 89 fL Normal 80-100 [facility] Comment on above: Performed By: #### C BC, CMP, 0-3 #### [facility] ([id number]) [address] [address] [place] [address] Platelet mean volume (Bld) [Entitic vol] 8.5 fL Normal 7-12 [facility] Comment on above: Performed By: #### Karina MARTELL CMP, 3039-3 #### [facility] ([id number]) [address], [facility] [address] [place] [address] Platelets (Bld) [#/Vol] 346 10*3/uL Normal 150-450 [facility] Comment on above: Performed By: #### Karina MARTELL CMP, 3039-3 #### [facility] ([id number]) [address], [facility] [address] [place] [address] RBC COUNT 4.44 X10E12/L Normal 3.80-5.20 [facility] Comment on above: Performed By: #### Karina MARTELL CMP, 3039-3 #### [facility] ([id number]) [address] [address] [place] [address] WBC (Bld) [#/Vol] 11.5 10*3/uL High 4.0-11.0 [facility] Comment on above: Performed By: #### Karina MARTELL CMP, 3039-3 #### [facility] ([id number]) [address], [address] [place] [address] COMPREHENSIVE METABOLIC PANE Jose 11-29-2023 Albumin [Mass/Vol] 4.6 g/dL Normal 3.2-5.3 [facility] Comment on above: Performed By: #### Karina MARTELL CMP, 3039-3 #### [facility] ([id number]) [address] [address] [place] [address] ALP [Catalytic activity/Vol] 176 U/L High 39-130 [facility] Comment on above: Performed By: #### Karina MARTELL CMP, 3040-3 #### [facility] ([id number]) [address], [address] [place] [address] ALT [Catalytic activity/Vol] 487 U/L High 0-31 [facility] Comment on above: Performed By: #### Karina MARTELL CMP, 3040-3 #### [facility] ([id number]) [address], [address] [place] [address] Anion gap [Moles/Vol] 17 mmol/L High 5-15 [facility] Comment on above: Performed By: #### Karina MARTELL CMP, 0-3 #### [facility] ([id number]) [address], [address] [place] [address] AST [Catalytic activity/Vol] 172 U/L High 0-41 [facility] Comment on above: Performed By: #### Karina MARTELL CMP, 0-3 #### [facility] ([id number]) [address], [address] [place] [address] Bilirubin [Mass/Vol] 3.8 mg/dL High 0.3-1.2 [facility] Comment on above: Performed By: #### Karina MARTELL CMP, 0-3 #### [facility] ([id number]) [address], [address] [place] [address] Calcium [Mass/Vol] 9.6 mg/dL Normal 8.5-10.5 [facility] Comment on above: Performed By: #### Karina MARTELL CMP, 0-3 #### [facility] ([id number]) [address], [address] [place] [address] Chloride [Moles/Vol] 99 mmol/L Normal 98-109 [facility] Comment on above: Performed By: #### Karina MARTELL, CMP, 3040-3 #### [facility] ([id number]) [address], [address] [place] [address] CO2 [Moles/Vol] 18 mmol/L Low 22-32 [facility] Comment on above: Performed By: #### Karina MARTELL CMP, 3040-3 #### [facility] ([id number]) [address] [address] [place] [address] Creatinine [Mass/Vol] 0.80 mg/dL Normal 0.40-1.00 [facility] Comment on above: Result Comment: METH OD TRACEABLE TO IDMS STANDARD Performed By: #### Karina MARTELL CMP, 0-3 #### [facility] ([id number]) [address] [address] [place] [address] eGFR (CKD-EPI) NON-RACE DEPENDENT >90 Normal >59 [facility] Comment on above: Result Comment: Reported eGFR is based on the CKD-EPI 2020 equation that does not use a race coefficient. Performed By: #### Karina MARTELL CMP, 0-3 #### [facility] ([id number]) [address] [address] [place] [address] Glucose [Mass/Vol] 70 mg/dL Normal 65-99 [facility] Comment on above: Performed By: #### Karina MARTELL CMP, 0-3 #### [facility] ([id number]) [address] [address] [place] [address] Potassium [Moles/Vol] 4.1 mmol/L Normal 3.5-5.0 [facility] Comment on above: Performed By: #### Karina MARTELL CMP, 0-3 #### [facility] ([id number]) [address] [address] [place] [address] Protein [Mass/Vol] 7.8 g/dL Normal 6.0-8.0 [facility] Comment on above: Performed By: #### Karina MARTELL CMP, 0-3 #### [facility] ([id number]) [address] [address] [place] [address] Sodium [Moles/Vol] 134 mmol/L Normal 134-146 [facility] Comment on above: Performed By: #### C JAYSHREE, [facility], 3040-3 #### [facility] ([id number]) [address], [address] [place] [address] Urea nitrogen [Mass/Vol] 12 mg/dL Normal 5-23 [facility] Comment on above: Performed By: #### Karina MARTELL, [facility], 3040-3 #### [facility] ([id number]) [address], [address] [place] [address] LIPASEon 11-29-2023 Lipase [Catalytic activity/Vol] 30 U/L Normal 11-82 [facility] Comment on above: Performed By: #### Karina MARTELL, [facility], 3040-3 #### [facility] ([id number]) [address], [address] [place] [address] Alanine aminotransferase [En zymatic activity/volume] in Serum or PlasmaOrdered By: Mitra Degroot on 02-25-2023 ALT [Catalytic activity/Vol] 12 U/L 7-52 [facility] Albumin [Mass/volume] in Ser um or Plasma by Bromocresol green (BCG) dye binding methoOrdered By: Mitra Degroot on 02-25-2023 Albumin BCG dye [Mass/Vol] 3.4 g/dL 3.5-5.7 [facility] Alkaline phosphatase [Enzyma tic activity/volume] in Serum or PlasmaOrdered By: Mitra Degroot on 02-25-2023 ALP [Catalytic activity/Vol] 107 U/L 34-104 [facility] Aspartate aminotransferase [ Enzymatic activity/volume] in Serum or PlasmaOrdered By: Mitra Degroot on 02-25-2023 AST [Catalytic activity/Vol] 11 U/L 13-39 [facility] Basophils Auto (Bld) [#/Vol] Ordered By: Mitra Degroot on 02-25-2023 Basophils (Bld) [#/Vol] 0.1 10*3/uL 0.0-0.2 [facility] Basophils/100 WBC Auto (Bld) Ordered By: Mitra Degroot on 02-25-2023 Basophils/100 WBC (Bld) 0.4 % . [facility] Bilirubin.total [Mass/volume ] in Serum or PlasmaOrdered By: Mitra Degroot on 02-25-2023 Bilirubin [Mass/Vol] 0.3 mg/dL 0.3-1.0 [facility] Calcium [Mass/volume] in Ser um or PlasmaOrdered By: Mitra Degroot on 02-25-2023 Calcium [Mass/Vol] 11.3 mg/dL 8.6-10.3 [facility] Carbon dioxide, total [Moles /volume] in Serum or PlasmaOrdered By: Mitra Degroot on 02-25-2023 CO2 [Moles/Vol] 26.0 mmol/L 21.0-31.0 [facility] Chloride [Moles/volume] in S ophelia or PlasmaOrdered By: Mitra Degroot on 02-25-2023 Chloride [Moles/Vol] 106 mmol/L 98-107 [facility] Complete Blood Count Auto Di ffon 02-25-2023 Basophils (Bld) [#/Vol] 0.1 10*3/uL Normal 0.0-0.2 [facility] Comment on above: Result Comment: PERF ORMED BY: [place] [address] PATHOLOGIST PRISONER CLASSIFICATION INTERVIEWER FLORY JAIN M.D. Performed By: #### C MP, CBC #### [address] Basophils/100 WBC (Bld) 0.4 % Normal . [facility] Comment on above: Performed By: #### C MP, CBC #### [facility] [address] Eosinophils (Bld) [#/Vol] 0.0 10*3/uL Normal 0.0-0.45 [facility] Comment on above: Performed By: #### C MP, CBC #### [address] [place] [address] [place] Eosinophils/100 WBC (Bld) 0.3 % Normal . [facility] Comment on above: Performed By: #### C MP, CBC #### [address] Erythrocyte distribution width (RBC) [Ratio] 14.1 % Normal 11.9-15.3 [facility] Comment on above: Performed By: #### C MP, CBC #### [address] Hematocrit (Bld) [Volume fraction] 34.4 % Normal 34.0-46.4 [facility] Comment on above: Performed By: #### C MP, CBC #### [address] Hemoglobin (Bld) [Mass/Vol] 11.5 g/dL Low 11.8-15.4 [facility] Comment on above: Performed By: #### C MP, CBC #### [address] Lymphocytes (Bld) [#/Vol] 2.3 10*3/uL Normal 1.00-4.8 [facility] Comment on above: Performed By: #### C MP, CBC #### [address] Lymphocytes/100 WBC (Bld) 14.7 % Normal . [facility] Comment on above: Performed By: #### C MP, CBC #### [address] MCH (RBC) [Entitic mass] 29.9 pg Normal 24.7-34.3 [facility] Comment on above: Performed By: #### C MP, CBC #### [address] MCV (RBC) [Entitic vol] 90.1 fL Normal 80-100 [facility] Comment on above: Performed By: #### C MP, CBC #### [address] Mean Corpuscular HGB Conc 33.2 g/dL Normal 32.0-35.0 [facility] Comment on above: Performed By: #### C MP, CBC #### [address] Monocytes (Bld) [#/Vol] 1.0 10*3/uL High 0.0-0.8 [facility] Comment on above: Performed By: #### C MP, CBC #### [address] Monocytes/100 WBC (Bld) 6.6 % Normal . [facility] Comment on above: Performed By: #### C MP, CBC #### [address] Neutrophils (Bld) [#/Vol] 12.2 10*3/uL High 1.8-7.7 [facility] Comment on above: Performed By: #### C MP, CBC #### [address] Neutrophils/100 WBC (Bld) 78.0 % Normal . [facility] Comment on above: Performed By: #### C MP, CBC #### [address] NRBC% 0.0 /100{WBC} Normal 0-0.5 [facility] Comment on above: Performed By: #### C MP, CBC #### [address] Platelet mean volume (Bld) [Entitic vol] 7.8 fL Normal 6.3-10.7 [facility] Comment on above: Performed By: #### C MP, CBC #### [address] Platelets (Bld) [#/Vol] 348 10*3/uL Normal 150-450 [facility] Comment on above: Performed By: #### C MP, CBC #### [address] RBC (Bld) [#/Vol] 3.82 10*6/uL Normal 3.60-5.00 [facility] Comment on above: Performed By: #### C MP, CBC #### [address] WBC (Bld) [#/Vol] 15.7 10*3/uL High 3.8-11.6 [facility] Comment on above: Performed By: #### C MP, CBC #### [address] Comprehensive Metabolic Pane jose 02-25-2023 Albumin [Mass/Vol] 3.4 g/dL Low 3.5-5.7 [facility] Comment on above: Performed By: #### C MP, CBC #### [address] Albumin/Globulin [Mass ratio] 1.0 {ratio} Normal [facility] Comment on above: Performed By: #### C MP, CBC #### [address] ALP [Catalytic activity/Vol] 107 U/L High 34-104 [facility] Comment on above: Performed By: #### C MP, CBC #### [address] ALT [Catalytic activity/Vol] 12 U/L Normal 7-52 [facility] Comment on above: Performed By: #### C MP, CBC #### [address] Anion gap [Moles/Vol] 9.5 mmol/L Normal 6.0-15.0 [facility] Comment on above: Performed By: #### C MP, CBC #### [address] AST [Catalytic activity/Vol] 11 U/L Low 13-39 [facility] Comment on above: Performed By: #### C MP, CBC #### [address] Bilirubin [Mass/Vol] 0.3 mg/dL Normal 0.3-1.0 [facility] Comment on above: Performed By: #### C MP, CBC #### [facility] [address] Calcium [Mass/Vol] 11.3 mg/dL High 8.6-10.3 [facility] Comment on above: Performed By: #### C MP, CBC #### [facility] [address] Chloride [Moles/Vol] 106 mmol/L Normal 98-107 [facility] Comment on above: Performed By: #### C MP, CBC #### [facility] [address] CO2 [Moles/Vol] 26.0 mmol/L Normal 21.0-31.0 [facility] Comment on above: Performed By: #### C MP, CBC #### [facility] [address] Creatinine [Mass/Vol] 0.99 mg/dL Normal 0.60-1.20 [facility] Comment on above: Performed By: #### C MP, CBC #### [facility] [address] [place] [address] [place] Creatinine Clr Calc Pharmacy 81.19 [facility] Comment on above: Result Comment: PERF ORMED BY: [place] [address] PATHOLOGIST PRISONER CLASSIFICATION INTERVIEWER FLORY JAIN M.D. Performed By: #### C MP, CBC #### [facility] [address] [place] [address] [place] GFR/1.73 sq M.predicted MDRD (S/P/Bld) [Vol rate/Area] mL/min/{1.73_m2} [facility] Comment on above: Performed By: #### C MP, CBC #### [facility] [address] [place] [address] [place] Globulin (S) [Mass/Vol] 3.3 g/dL [facility] Comment on above: Performed By: #### C MP, CBC #### [facility] [address] Glucose [Mass/Vol] 73 mg/dL Normal 70-100 [facility] Comment on above: Result Comment: [facility] Glucose Reference Range is dependent on time and content of last meal. Glucose of more than 200 mg/dL in a nonstressed, ambulatory subject supports the diagnosis of Diabetes Mellitus. ADA recommended reference range Performed By: #### C MP, CBC #### [facility] [address] Potassium [Moles/Vol] 4.5 mmol/L Normal 3.5-5.1 [facility] Comment on above: Performed By: #### C MP, CBC #### [facility] [address] [place] [address] Protein [Mass/Vol] 6.7 g/dL Normal 6.4-8.9 [facility] Comment on above: Performed By: #### C MP, CBC #### [facility] [address] Sodium [Moles/Vol] 137 mmol/L Normal 136-145 [facility] Comment on above: Performed By: #### C MP, CBC #### [facility] [address] [place] [address] Urea nitrogen [Mass/Vol] 12 mg/dL Normal 7-25 [facility] Comment on above: Performed By: #### C MP, CBC #### [facility] [address] [place] [address] [place] Creatinine [Mass/volume] in Serum or PlasmaOrdered By: Mitra Degroot on 02-25-2023 Creatinine [Mass/Vol] 0.99 mg/dL 0.60-1.20 [facility] Eosinophils Auto (Bld) [#/Vo l]Ordered By: Mitra Degroot on 02-25-2023 Eosinophils (Bld) [#/Vol] 0.0 10*3/uL 0.0-0.45 [facility] Eosinophils/100 WBC Auto (Bl d)Ordered By: Mitra Degroot on 02-25-2023 Eosinophils/100 WBC (Bld) 0.3 % . [facility] Erythrocyte distribution wid th Auto (RBC) [Ratio]Ordered By: Mitra Degroot on 02-25-2023 Erythrocyte distribution width (RBC) [Ratio] 14.1 % 11.9-15.3 [facility] Globulin Calc (S) [Mass/Vol] Ordered By: Mitra Degroot on 02-25-2023 Globulin (S) [Mass/Vol] 3.3 g/dL [facility] Glucose [Mass/volume] in Ser um or PlasmaOrdered By: Mitra Degroot on 02-25-2023 Glucose [Mass/Vol] 73 mg/dL 70-100 [facility] Comment on above: ADA recommended refe rence rangeRandom Glucose Reference Range is dependent on time and content of last meal. Glucose of more than 200 mg/dL in a nonstressed, ambulatory subject supports the diagnosis of Diabetes Mellitus. Hematocrit Auto (Bld) [Volum e fraction]Ordered By: Mitra Degroot on 02-25-2023 Hematocrit (Bld) [Volume fraction] 34.4 % 34.0-46.4 [facility] Hemoglobin [Mass/volume] in BloodOrdered By: Mitra Degroot on 02-25-2023 Hemoglobin (Bld) [Mass/Vol] 11.5 g/dL 11.8-15.4 [facility] Leukocytes [#/volume] correc rojas for nucleated erythrocytes in Blood by Automated counOrdered By: Mitra Degroot on 02-25-2023 WBC corrected for nucl RBC Auto (Bld) [#/Vol] 15.7 10*3/uL 3.8-11.6 [facility] Lymphocytes Auto (Bld) [#/Vo l]Ordered By: Mitra Degroot on 02-25-2023 Lymphocytes (Bld) [#/Vol] 2.3 10*3/uL 1.00-4.8 [facility] Lymphocytes/100 WBC Auto (Bl d)Ordered By: Mitra Degroot on 02-25-2023 Lymphocytes/100 WBC (Bld) 14.7 % . [facility] MCH Auto (RBC) [Entitic mass ]Ordered By: Mitra Degroot on 02-25-2023 MCH (RBC) [Entitic mass] 29.9 pg 24.7-34.3 [facility] MCHC Auto (RBC) [Mass/Vol]Or dered By: Mitra Degroot on 02-25-2023 MCHC (RBC) [Mass/Vol] 33.2 g/dL 32.0-35.0 [facility] MCV Auto (RBC) [Entitic vol] Ordered By: Mitra Degroot on 02-25-2023 MCV (RBC) [Entitic vol] 90.1 fL 80-100 [facility] Monocytes Auto (Bld) [#/Vol] Ordered By: Mitra Degroot on 02-25-2023 Monocytes (Bld) [#/Vol] 1.0 10*3/uL 0.0-0.8 [facility] Monocytes/100 WBC Auto (Bld) Ordered By: Mitra Degroot on 02-25-2023 Monocytes/100 WBC (Bld) 6.6 % . [facility] Neutrophils Auto (Bld) [#/Vo l]Ordered By: Mitra Degroot on 02-25-2023 Neutrophils (Bld) [#/Vol] 12.2 10*3/uL 1.8-7.7 [facility] Neutrophils/100 WBC Auto (Bl d)Ordered By: Mitra Degroot on 02-25-2023 Neutrophils/100 WBC (Bld) 78.0 % . [facility] No Panel InformationOrdered By: Mitra Degroot on 02-25-2023 Estimated GFR (CKD-EPI) > 60.0 mL/Min [facility] Creatinine Clearance (Chem 81.19 [facility] Nucleated erythrocytes [Pres ence] in Blood by Automated countOrdered By: Mitra Degroot on 02-25-2023 Nucleated RBC Auto Ql (Bld) 0.0 /100{WBC} 0-0.5 [facility] Platelet mean volume Auto (B ld) [Entitic vol]Ordered By: Mitra Degroot on 02-25-2023 Platelet mean volume (Bld) [Entitic vol] 7.8 fL 6.3-10.7 [facility] Platelets Auto (Bld) [#/Vol] Ordered By: Mitra Degroot on 02-25-2023 Platelets (Bld) [#/Vol] 348 10*3/uL 150-450 [facility] Potassium [Moles/volume] in Serum or PlasmaOrdered By: Mitra Degroot on 02-25-2023 Potassium [Moles/Vol] 4.5 mmol/L 3.5-5.1 [facility] Protein [Mass/volume] in Ser um or PlasmaOrdered By: Mitra Degroot on 02-25-2023 Protein [Mass/Vol] 6.7 g/dL 6.4-8.9 [facility] RBC Auto (Bld) [#/Vol]Ordere d By: Mitra Degroot on 02-25-2023 RBC (Bld) [#/Vol] 3.82 10*6/uL 3.60-5.00 [facility] Serum or plasma albumin/glob ulin mass ratioOrdered By: Mitra Degroot on 02-25-2023 Albumin/Globulin [Mass ratio] 1.0 {ratio} [facility] Serum or plasma anion gap de terminationOrdered By: Mitra Degroot on 02-25-2023 Anion gap [Moles/Vol] 9.5 mmol/L 6.0-15.0 [facility] Sodium [Moles/volume] in Ser um or PlasmaOrdered By: Mitra Degroot on 02-25-2023 Sodium [Moles/Vol] 137 mmol/L 136-145 [facility] Urea nitrogen [Mass/volume] in Serum or PlasmaOrdered By: Mitra Degroot on 02-25-2023 Urea nitrogen [Mass/Vol] 12 mg/dL 7-25 [facility] WBC Auto (Bld) [#/Vol]Ordere d By: Mitra Degroot on 02-25-2023 WBC (Bld) [#/Vol] 15.7 10*3/uL 3.8-11.6 [facility] Complete Blood Count Auto Di ffon 02-24-2023 Basophils (Bld) [#/Vol] 0.0 10*3/uL Normal 0.0-0.2 [facility] Comment on above: Result Comment: PERF ORMED BY: [facility] [address] PATHOLOGIST PRISONER CLASSIFICATION INTERVIEWER FLORY JAIN M.D. Performed By: #### R AK W RFX #### [facility] , Basophils/100 WBC (Bld) 0.2 % Normal . [facility] Comment on above: Performed By: #### R AK W RFX #### [facility] , Eosinophils (Bld) [#/Vol] 0.0 10*3/uL Normal 0.0-0.45 [facility] Comment on above: Performed By: #### R AK W RFX #### [facility] , Eosinophils/100 WBC (Bld) 0.0 % Normal . [facility] Comment on above: Performed By: #### R AK W RFX #### [facility] , Erythrocyte distribution width (RBC) [Ratio] 13.8 % Normal 11.9-15.3 [facility] Comment on above: Performed By: #### R AK W RFX #### [facility] , Hematocrit (Bld) [Volume fraction] 28.8 % Low 34.0-46.4 [facility] Comment on above: Performed By: #### R AK W RFX #### [facility] , Hemoglobin (Bld) [Mass/Vol] 9.9 g/dL Low 11.8-15.4 [facility] Comment on above: Performed By: #### R AK W RFX #### [facility] , Lymphocytes (Bld) [#/Vol] 3.1 10*3/uL Normal 1.00-4.8 [facility] Comment on above: Performed By: #### R AK W RFX #### [facility] , Lymphocytes/100 WBC (Bld) 15.8 % Normal . [facility] Comment on above: Performed By: #### R AK W RFX #### [facility] , MCH (RBC) [Entitic mass] 30.5 pg Normal 24.7-34.3 [facility] Comment on above: Performed By: #### R AK W RFX #### [facility] , MCV (RBC) [Entitic vol] 88.7 fL Normal 80-100 [facility] Comment on above: Performed By: #### R AK W RFX #### [facility] , Mean Corpuscular HGB Conc 34.4 g/dL Normal 32.0-35.0 [facility] Comment on above: Performed By: #### R AK W RFX #### [facility] , Monocytes (Bld) [#/Vol] 1.2 10*3/uL High 0.0-0.8 [facility] Comment on above: Performed By: #### R AK W RFX #### [facility] , Monocytes/100 WBC (Bld) 6.3 % Normal . [facility] Comment on above: Performed By: #### R AK W RFX #### [facility] , Neutrophils (Bld) [#/Vol] 15.1 10*3/uL High 1.8-7.7 [facility] Comment on above: Performed By: #### R AK W RFX #### [facility] , Neutrophils/100 WBC (Bld) 77.7 % Normal . [facility] Comment on above: Performed By: #### R AK W RFX #### [facility] , NRBC% 0.0 /100{WBC} Normal 0-0.5 [facility] Comment on above: Performed By: #### R AK W RFX #### [facility] , Platelet mean volume (Bld) [Entitic vol] 8.1 fL Normal 6.3-10.7 [facility] Comment on above: Performed By: #### R AK W RFX #### [facility] , Platelets (Bld) [#/Vol] 286 10*3/uL Normal 150-450 [facility] Comment on above: Performed By: #### R AK W RFX #### [facility] , RBC (Bld) [#/Vol] 3.24 10*6/uL Low 3.60-5.00 [facility] Comment on above: Performed By: #### R AK W RFX #### [facility] , WBC (Bld) [#/Vol] 19.4 10*3/uL High 3.8-11.6 [facility] Comment on above: Performed By: #### R AK W RFX #### [facility] , ABO/RH Typeon 02-23-2023 ABO and Rh group Nom (Bld) Blood group A Rh(D) positive Normal [facility] Comment on above: Result Comment: PERF ORMED BY: [address] [place] [address] PATHOLOGIST PRISONER CLASSIFICATION INTERVIEWER FLORY JAIN M.D. ABO/Rh Retypeon 02-23-2023 ABO/RH Recheck Result Positive Normal [facility] Comment on above: Result Comment: PERF ORMED BY: [address] [place] [address] PATHOLOGIST PRISONER CLASSIFICATION INTERVIEWER FLORY JAIN M.D. Amphetamine Screen Ql (U)Ord ered By: DIANA SORENSON on 02-23-2023 Amphetamines Ql (U) Negative Negative [facility] Automated erythrocytes count in urine sediment (number/area)Ordered By: DIANA SORENSON on 02-23-2023 RBC Auto (Urine sed) [#/Area] 3-4 [HPF] 0-4 [facility] Automated leukocytes count i n urine sediment (number/area)Ordered By: DIANA SORENSON on 02-23-2023 WBC Auto (Urine sed) [#/Area] 10-19 [HPF] 0-4 [facility] Automated urine hyaline cast s count (number/volume)Ordered By: DIANA SORENSON on 02-23-2023 Hyaline casts Auto (U) [#/Vol] None seen [LPF] 0-1 [facility] Barbiturates [Presence] in U rine by Screen methodOrdered By: DIANA SORENSON on 02-23-2023 Barbiturates Screen Ql (U) Negative Negative [facility] Benzodiazepines Screen Ql (U )Ordered By: DIANA SORENSON on 02-23-2023 Benzodiazepines Ql (U) Negative Negative [facility] Benzoylecgonine [Presence] i n Urine by Screen methodOrdered By: DIANA SORENSON on 02-23-2023 Benzoylecgonine Screen Ql (U) Negative Negative [facility] Bilirubin Test strip Ql (U)O rdered By: DIANA SORENSON on 02-23-2023 Bilirubin Ql (U) Negative Negative [facility] Casts typing in urine sedime nt by light microscopyOrdered By: DIANA SORENSON on 02-23-2023 Casts LM Nom (Urine sed) None seen [LPF] None Seen [facility] Color Auto (U)Ordered By: MO KAREN SORENSON on 02-23-2023 Color (U) Yellow Yellow [facility] Complete Blood Count Auto Di ffon 02-23-2023 Basophils (Bld) [#/Vol] 0.0 10*3/uL Normal 0.0-0.2 [facility] Comment on above: Result Comment: PERF ORMED BY: [place] [address] PATHOLOGIST PRISONER CLASSIFICATION INTERVIEWER FLORY JAIN M.D. Performed By: #### C BC #### [facility] [address] [place] [address] [place] Basophils/100 WBC (Bld) 0.4 % Normal . [facility] Comment on above: Performed By: #### C BC #### [facility] [address] Eosinophils (Bld) [#/Vol] 0.0 10*3/uL Normal 0.0-0.45 [facility] Comment on above: Performed By: #### C BC #### [address] Eosinophils/100 WBC (Bld) 0.4 % Normal . [facility] Comment on above: Performed By: #### C BC #### [address] Erythrocyte distribution width (RBC) [Ratio] 14.1 % Normal 11.9-15.3 [facility] Comment on above: Performed By: #### C BC #### [address] Hematocrit (Bld) [Volume fraction] 34.7 % Normal 34.0-46.4 [facility] Comment on above: Performed By: #### C BC #### [address] Hemoglobin (Bld) [Mass/Vol] 12.0 g/dL Normal 11.8-15.4 [facility] Comment on above: Performed By: #### C BC #### [address] Lymphocytes (Bld) [#/Vol] 2.9 10*3/uL Normal 1.00-4.8 [facility] Comment on above: Performed By: #### C BC #### [address] Lymphocytes/100 WBC (Bld) 23.1 % Normal . [facility] Comment on above: Performed By: #### C BC #### [address] MCH (RBC) [Entitic mass] 30.2 pg Normal 24.7-34.3 [facility] Comment on above: Performed By: #### C BC #### [address] MCV (RBC) [Entitic vol] 87.6 fL Normal 80-100 [facility] Comment on above: Performed By: #### C BC #### [address] Mean Corpuscular HGB Conc 34.5 g/dL Normal 32.0-35.0 [facility] Comment on above: Performed By: #### C BC #### [address] Monocytes (Bld) [#/Vol] 0.7 10*3/uL Normal 0.0-0.8 [facility] Comment on above: Performed By: #### C BC #### [address] Monocytes/100 WBC (Bld) 5.5 % Normal . [facility] Comment on above: Performed By: #### C BC #### [address] Neutrophils (Bld) [#/Vol] 9.0 10*3/uL High 1.8-7.7 [facility] Comment on above: Performed By: #### C BC #### [address] Neutrophils/100 WBC (Bld) 70.6 % Normal . [facility] Comment on above: Performed By: #### C BC #### [address] NRBC% 0.0 /100{WBC} Normal 0-0.5 [facility] Comment on above: Performed By: #### C BC #### [address] Platelet mean volume (Bld) [Entitic vol] 8.1 fL Normal 6.3-10.7 [facility] Comment on above: Performed By: #### C BC #### [address] Platelets (Bld) [#/Vol] 331 10*3/uL Normal 150-450 [facility] Comment on above: Performed By: #### C BC #### [address] RBC (Bld) [#/Vol] 3.96 10*6/uL Normal 3.60-5.00 [facility] Comment on above: Performed By: #### C BC #### [facility] [address] WBC (Bld) [#/Vol] 12.7 10*3/uL High 3.8-11.6 [facility] Comment on above: Performed By: #### C BC #### [facility] [address] Cord Blood Gason 02-23-2023 Cord Arterial Blood Total CO2 25.1 mmol/L Normal 23.0-27.0 [facility] Comment on above: Performed By: #### C ORDBG #### Point of Care testing , Cord Blood Base Excess -0.3 mmol/L Normal -3.0-3.0 [facility] Comment on above: Performed By: #### C ORDBG #### Point of Care testing , Cord Blood Capillary PO2 20.1 mm[Hg] Off scale low 90.0-100.0 [facility] Comment on above: Performed By: #### C ORDBG #### Point of Care testing , Cord Blood Frac Inspired O2 21 % Normal [facility] Comment on above: Performed By: #### C ORDBG #### Point of Care testing , Cord Blood HCO3 23.9 mmol/L Normal 23.0-29.0 [facility] Comment on above: Performed By: #### C ORDBG #### Point of Care testing , Cord Blood Oxygen Content 5.1 mmol/L Low 6.6-9.7 [facility] Comment on above: Performed By: #### C ORDBG #### Point of Care testing , Cord Blood Oxygen Sat 54.3 % Low 95.0-99.0 [facility] Comment on above: Performed By: #### C ORDBG #### Point of Care testing , Cord Blood PCO2 38.2 mm[Hg] Normal 35.0-45.0 [facility] Comment on above: Performed By: #### C ORDBG #### Point of Care testing , Cord Blood pH 7.42 Normal 7.35-7.45 [facility] Comment on above: Performed By: #### C ORDBG #### Point of Care testing , Respiratory Critical Normal [facility] Comment on above: Result Comment: Crit ical Value called on: 02/23/2023 at 14:53 PERFORMED BY: [place] [address] PATHOLOGIST PRISONER CLASSIFICATION INTERVIEWER FLORY JAIN M.D. Performed By: #### C ORDBG #### Point of Care testing , VBG Draw Site Umbilical Cord Normal [facility] Comment on above: Performed By: #### C ORDBG #### Point of Care testing , Dipstick and Microscopicon 0 02-23-2023 Appearance (U) Cloudy Critically abnormal Clear [facility] Comment on above: Order Comment: Name Collection Type:: Clean-Voided Midstream Performed By: #### A DDONUAPLUS, CUU, OBUDS #### [facility] [address] [place] [address] [place] Bacteria,Urine 2+ High None Seen [facility] Comment on above: Order Comment: Name Collection Type:: Clean-Voided Midstream Performed By: #### A DDONUAPLUS, CUU, OBUDS #### [facility] [address] [place] [address] [place] Bilirubin,Urine Negative Normal Negative [facility] Comment on above: Order Comment: Name Collection Type:: Clean-Voided Midstream Performed By: #### A DDONUAPLUS, CUU, OBUDS #### [facility] [address] [place] [address] [place] Color (U) Yellow Normal Yellow [facility] Comment on above: Order Comment: Name Collection Type:: Clean-Voided Midstream Performed By: #### A DDONUAPLUS, CUU, OBUDS #### [facility] [address] [place] [address] [place] Glucose Ql (U) Normal Normal Normal [facility] Comment on above: Order Comment: Name Collection Type:: Clean-Voided Midstream Performed By: #### A DDONUAPLUS, CUU, OBUDS #### [facility] [address] Hyaline Casts,Urine None Seen Normal 0-1 [facility] Comment on above: Order Comment: Name Collection Type:: Clean-Voided Midstream Performed By: #### A DDONUAPLUS, CUU, OBUDS #### [facility] [address] Ketones Ql (U) Trace High Negative [facility] Comment on above: Order Comment: Name Collection Type:: Clean-Voided Midstream Performed By: #### A DDONUAPLUS, CUU, OBUDS #### [address] Leukocyte esterase Test strip Ql (U) 2+ High Negative [facility] Comment on above: Order Comment: Name Collection Type:: Clean-Voided Midstream Performed By: #### A DDONUAPLUS, CUU, OBUDS #### [place] [address] [place] Nitrite,Urine Negative Normal Negative [facility] Comment on above: Order Comment: Name Collection Type:: Clean-Voided Midstream Performed By: #### A DDONUAPLUS, CUU, OBUDS #### [address] Occult Blood,Urine Negative Normal Negative [facility] Comment on above: Order Comment: Name Collection Type:: Clean-Voided Midstream Result Comment: PERF ORMED BY: [place] [address] PATHOLOGIST PRISONER CLASSIFICATION INTERVIEWER FLORY JAIN M.D. Performed By: #### A DDONUAPLUS, CUU, OBUDS #### [facility] [address] [place] [address] Other Casts,Urine None Seen Normal None Seen [facility] Comment on above: Order Comment: Name Collection Type:: Clean-Voided Midstream Result Comment: PERF ORMED BY: [place] [address] PATHOLOGIST PRISONER CLASSIFICATION INTERVIEWER FLORY JAIN M.D. Performed By: #### A DDONUAPLUS, CUU, OBUDS #### [address] pH (U) 7.0 [pH] Normal 5.0-9.0 [facility] Comment on above: Order Comment: Name Collection Type:: Clean-Voided Midstream Performed By: #### A DDONUAPLUS, CUU, OBUDS #### [address] Protein (U) [Mass/Vol] 30 mg/dL High Negative [facility] Comment on above: Order Comment: Name Collection Type:: Clean-Voided Midstream Performed By: #### A DDONUAPLUS, CUU, OBUDS #### [address] RBC,Urine 3-4 Normal 0-4 [facility] Comment on above: Order Comment: Name Collection Type:: Clean-Voided Midstream Performed By: #### A DDONUAPLUS, CUU, OBUDS #### [address] Specificy [place],Urine 1.016 Normal 1.001-1.030 [facility] Comment on above: Order Comment: Name Collection Type:: Clean-Voided Midstream Performed By: #### A DDONUAPLUS, CUU, OBUDS #### [address] Squamous Epithelial Cell,Urine 10-19 High 0-2 [facility] Comment on above: Order Comment: Name Collection Type:: Clean-Voided Midstream Performed By: #### A DDONUAPLUS, CUU, OBUDS #### [address] Urobilinogen,Urine Normal Normal Normal [facility] Comment on above: Order Comment: Name Collection Type:: Clean-Voided Midstream Performed By: #### A DDONUAPLUS, CUU, OBUDS #### [address] [place] [address] [place] WBC,Urine 10-19 High 0-4 [facility] Comment on above: Order Comment: Name Collection Type:: Clean-Voided Midstream Performed By: #### A FEMI ONEAL, OBUDS #### [facility] [address] Ketones Auto test strip (U) [Mass/Vol]Ordered By: DIANA SORENSON on 02-23-2023 Ketones (U) [Mass/Vol] Trace Negative [facility] Nitrite Test strip Ql (U)Ord ered By: DIANA SORENSON on 02-23-2023 Nitrite Ql (U) Negative Negative [facility] No Panel InformationOrdered By: DIANA SORENSON on 02-23-2023 Blood Gas Critical Value See comment [facility] Comment on above: Critical Value louis d on: 02/23/2023 at 14:53 Blood Gas Sample Site Umbilical cord [facility] Cord Arterial Bld Oxygen Saturation 54.3 % 95.0-99.0 [facility] Cord Arterial Blood Base Excess -0.3 mmol/L -3.0-3.0 [facility] Cord Arterial Blood O2 Content 5.1 mmol/L 6.6-9.7 [facility] Cord Blood HCO3 23.9 mmol/L 23.0-29.0 [facility] Cord Blood PCO2 38.2 mm[Hg] 35.0-45.0 [facility] Cord Blood pH 7.42 7.35-7.45 [facility] Cord Blood PO2 20.1 mm[Hg] 90.0-100.0 [facility] Cord Blood Total CO2 25.1 mmol/L 23.0-27.0 [facility] FiO2 21 % [facility] OB Urine Drug Screen (NO THC )on 02-23-2023 Amphetamine Screen,Urine Negative Normal Negative [facility] Comment on above: Performed By: #### A FEMI ONEAL, OBUDS #### [facility] [address] Barbiturate Screen,Urine Negative Normal Negative [facility] Comment on above: Performed By: #### A DDONUAPLUS, CUU, OBUDS #### [facility] [address] Benzodiazepines Screen,Urine Negative Normal Negative [facility] Comment on above: Performed By: #### A DDONUAPLUS, CUU, OBUDS #### [place] [address] [place] Cocaine Screen,Urine Negative Normal Negative [facility] Comment on above: Performed By: #### A DDONUAPLUS, CUU, OBUDS #### [address] Opiate Screen,Urine Negative Normal Negative [facility] Comment on above: Performed By: #### A DDONUAPLUS, CUU, OBUDS #### [address] Phencyclidine Screen, Urine Negative Normal Negative [facility] Comment on above: Result Comment: Thes e are unconfirmed results and should not be used for legal purposes. Drug Cut-Off Concentration: AMPH 1000 ng/mL KIMMY 200 ng/mL DILMA 200 ng/mL COCM 300 ng/mL OP 300 ng/mL PCP 25 ng/mL PERFORMED BY: [place] [address] PATHOLOGIST PRISONER CLASSIFICATION INTERVIEWER FLORY JAIN M.D. Performed By: #### A DDONUAPLUS, CUU, OBUDS #### [address] Opiates [Presence] in Urine by Screen methodOrdered By: DIANA SORENSON on 02-23-2023 Opiates Screen Ql (U) Negative Negative [facility] Phencyclidine Screen Ql (U)O rdered By: DIANA SORENSON on 02-23-2023 Phencyclidine Ql (U) Negative Negative [facility] Comment on above: These are unconfirme d results and should not be used for legal purposes. Drug Cut-Off Concentration: AMPH 1000 ng/mL KIMMY 200 ng/mL DILMA 200 ng/mL COCM 300 ng/mL OP 300 ng/mL PCP 25 ng/mL Protein Auto test strip (U) [Mass/Vol]Ordered By: DIANA SORENSON on 02-23-2023 Protein (U) [Mass/Vol] 30 mg/dL Negative Fi [facility] RPR w/rfx to Quant TP Abson 02-23-2023 RPR, Rfx Quant RPR Non-Reactive Normal Non Reactive Fi [facility] Comment on above: Result Comment: Perf ormed at: CB - [facility] [place] [id number] Preparing Box Tender: Rashaad Trevino PhD, Phone: [phone] PERFORMED BY: [place] [address] PATHOLOGIST PRISONER CLASSIFICATION INTERVIEWER FLORY JAIN M.D. Performed By: #### R AK W RFX #### [facility] , Reagin Ab [Presence] in Seru m by RPROrdered By: DIANA SORENSON on 02-23-2023 Reagin Ab RPR Ql (S) Non-Reactive Non Reactive [facility] Comment on above: Performed at: - [facility] [address] [id number] Director: Rashaad Trevino PhD, Phone: [phone] Specific gravity Auto test s trip (U) [Rel density]Ordered By: DIANA SORENSON on 02-23-2023 Specific gravity (U) [Rel density] 1.016 1.001-1.030 [facility] Squamous epithelial cells de tection in urine sediment by light microscopyOrdered By: DIANA SORENSON on 02-23-2023 Epithelial cells.squamous LM Ql (Urine sed) 10-19 [HPF] 0-2 [facility] Urine Cultureon 02-23-2023 Bacteria identified Cx Nom (U) <9,000 colonies/ml mixed bacterial skin contaminants 2 Days PERFORMED BY: [address] [place] [address] PATHOLOGIST PRISONER CLASSIFICATION INTERVIEWER FLORY JAIN M.D. Normal [facility] Comment on above: Performed By: #### A FEMI ONEAL, OBUDS #### [facility] [address] [place] [id number] [facility] Urine bacteria detection by automated methodOrdered By: DIANA SORENSON on 02-23-2023 Bacteria Auto Ql (U) 2+ None Seen [facility] Urine clarity by refractomet ry automatedOrdered By: DIANA SORENSON on 02-23-2023 Clarity Refractometry automated (U) Cloudy Clear [facility] Urine culture routineOrdered By: DIANA SORENSON on 02-23-2023 Bacteria identified Cx Nom (U) 2 Days [facility] Urine glucose measurement by automated test strip (mass/volume)Ordered By: DIANA SORENSON on 02-23-2023 Glucose Auto test strip (U) [Mass/Vol] Normal mg/dL Normal [facility] Urine hemoglobin detection b y automated test stripOrdered By: DIANA SORENSON on 02-23-2023 Hemoglobin Auto test strip Ql (U) Negative Negative [facility] Urine leukocyte esterase det ection by automated test stripOrdered By: DIANA SORENSON on 02-23-2023 Leukocyte esterase Auto test strip Ql (U) 2+ Negative [facility] Urobilinogen Auto test strip (U) [Mass/Vol]Ordered By: DIANA SORENSON on 02-23-2023 Urobilinogen (U) [Mass/Vol] Normal mg/dL Normal [facility] pH Auto test strip (U)Ordere d By: DIANA SORENSON on 02-23-2023 pH (U) 7.0 [pH] 5.0-9.0 [facility] Bacterial susceptibility wooten el EZEQUIEL (Isol)on 01-31-2023 Microorganism identified Cx Nom (Unsp spec) [id number] Abnormal [facility] Comment on above: Order Comment: Speci men Type: MICROBIAL ISOLATE Ordering Facility: [facility] Address: [address] [place] [id number] Result Comment: Stre ptococcus agalactiae (group b streptococcus) Identification performed by client. Performed By: #### [facility], [id number] #### [facility] CLIA [id number] [address] [place] [address] [place] MINIMUM INHIBITORY CONCENTRA TION (VIZION)on 01-31-2023 cefTRIAXone [Susc] 0.25 Susceptible Susceptib le <=0.5 , Nonsusceptible >.5 [facility] Comment on above: Order Comment: Order ing Facility: [facility] Address: [address] [place] [address] Performed By: #### Hannah CRANE, [id number] #### [facility] CLIA [id number] [address] [place] [address] [place] Clindamycin [Susc] <=0.12 Susceptible Susceptib le <=0.25 , Intermediate >.25 , Resistant >.5 [facility] Comment on above: Order Comment: Order ing Facility: [facility] Address: [address] [place] [address] Performed By: #### Hannah CRANE, 79554-4 #### [facility] [place] [id number] [address] [place] [address] [place] Erythromycin [Susc] <=0.25 Susceptible Suscepti ble <=0.25 , Intermediate >.25 , Resistant >=1 [facility] [facility] Comment on above: Order Comment: Order ing Facility: [facility] Address: [address] [place] [address] Performed By: #### Hannah CRANE, [id number] #### [facility] [place] [id number] [address] [place] [address] [place] Penicillin [Susc] 0.06 Susceptible Susceptibl e <=0.125 , Nonsusceptible >.125 [facility] Comment on above: Order Comment: Order ing Facility: [facility] Address: [address] [place] [address] Performed By: #### Hannah CRANE, [id number] #### [facility] CLIA [id number] [address] [place], [place] [id number] [place] Vancomycin [Susc] <=0.50 Susceptible Susceptibl e <=1 , Nonsusceptible >1 [facility] Comment on above: Order Comment: Order ing Facility: [facility] Address: [address] [place] [id number] Performed By: #### V ZMIC, [id number] #### [facility] CLIA [id number] [address] [id number] [place] No Panel InformationOrdered By: DIANA SORENSON on 01-31-2023 Group B Streptococcus Culture Strep. agalactiae Grp B [facility] Strep B Culture (PCN Allergi c)on 01-31-2023 Strep B Culture (PCN Allergic) ORGANISM: Strep. agalactiae Grp B (O:B) Comments Sent to [facility] for Sensitivity Testing Please see scanned report located in the Laboratory/Scanned Reports section of the EMR. PERFORMED BY: [place] [id number] PATHOLOGIST PRISONER CLASSIFICATION INTERVIEWER FLORY JAIN M.D. Normal [facility] Comment on above: Performed By: #### R AK W RFX #### [facility] , [place] PREG [...] by: YOMAIRA SOSA Date: 2022-10-19 15:24 Normal [facility] AFP MATERNAL FOR SPINA BIFID Aon 10-07-2022 AFP MoM 1.00 Normal [facility] Comment on above: Performed By: #### A FPMAT #### [facility] [address] [address] [address] Calin Marshall AFP Value 45.3 ng/mL Normal [facility] Comment on above: Performed By: #### A FPMAT #### [facility] [address] [address] [address] Calin Marshall AFP, Serum for Spina Bifida Report Normal [facility] Comment on above: Performed By: #### A FPMAT #### [facility] [address] [address] [address] Calin Marshall Comment Comment Normal [facility] Comment on above: Result Comment: Les Miller, Ph.D., [facility] Director . References: Available Upon Request. . Multiples Of Median Cutoffs For AFP Elevations Perry 2.5 Black 2.8 IDD 2.0 Twins 4.5 Abbreviation Definitions IDD - Insulin Dep Diabetes OSBR - Open Spina Bifida Risk . For further inquiries contact [employer] [facility] at [phone]. . This test was developed and its performance characteristics determined by [employer]. It has not been cleared or approved by the Food and Drug Administration. Performed By: #### A FPMAT #### [facility] [address] [address] [address] Calin Marshall Gest Age Collection Date 18.9 weeks Normal [facility] Comment on above: Performed By: #### A FPMAT #### [facility] [address] [place] [address] Dr. Calin Marshall Gestat, Age Based on Ultrasound Normal [facility] Comment on above: Result Comment: 8.6 on 07/25/2022 Recalculations are not recommended when gestational dating by LMP and ultrasound are within 10 days. Performed By: #### A FPMAT #### [facility] [address] [place] [address] Dr. Calin Marshall Insulin Dep Diabetes No Normal [facility] Comment on above: Performed By: #### A FPMAT #### [facility] [address] [place] [address] Dr. Calin Marshall Interpretation Comment Normal [facility] Comment on above: Result Comment: Inte rpretation: [...] Customer Services to discuss available options. The [employer] recommends amniocentesis be offered to women age 35 and older. Performed By: #### A FPMAT #### [facility] [address] [place] [address] Dr. Calin Marshall [age] Normal [facility] Comment on above: Performed By: #### A FPMAT #### [facility] [address] [address] [address] Calin Marshall Multiple Gestation No Normal [facility] Comment on above: Performed By: #### A FPMAT #### [facility] [address] [place] [address] Dr. Calin Marshall [place] [address] Normal [facility] Comment on above: Performed By: #### A FPMAT #### [facility] [address] [place] [address] Dr. Calin Marshall PDF . [facility] Comment on above: Performed By: #### A FPMAT #### [facility] [address] [place] [address] Dr. Calin Marshall Race [facility] Comment on above: Performed By: #### A FPMAT #### [facility] [address] [place] [address] Dr. Calin Marshall Test Results: Negative [facility] Comment on above: Performed By: #### A FPMAT #### [facility] [address] [place] [address] Dr. Calin Marshall PAP ACOG PANEL 2: 21 to 29on 09-12-2022 . . [facility] Comment on above: Performed By: #### R UBIGG #### [facility] [address] [place] [address] Dr. Calin Marshall Age Gdln ACOG Testing - [facility] Comment on above: Performed By: #### R UBIGG #### [facility] [address] [place] [address] Dr. Calin Marshall DIAGNOSIS: Comment [facility] Comment on above: Result Comment: NEGA TIVE FOR INTRAEPITHELIAL LESION OR MALIGNANCY. Performed By: #### R UBIGG #### [facility] [address] [place] [address] Dr. Calin Marshall Methodology: Comment [facility] Comment on above: Result Comment: This liquid based ThinPrep(R) pap test was screened with the use of an image guided system. Performed By: #### R UBIGG #### [facility] [address] [place] [address] Dr. Calin Marshall Note: Comment [facility] Comment on above: Result Comment: The Pap smear is a screening test designed to aid in the detection of premalignant and malignant conditions of the uterine cervix. It is not a diagnostic procedure and should not be used as the sole means of detecting cervical cancer. Both false-positive and false-negative reports do occur. . Performed By: #### R UBIGG #### [facility] [address] [place] [address] Dr. Calin Marshall Performed by: Comment Normal [facility] Comment on above: Result Comment: Essence Salazar, Desk Officer (ASCP) Performed By: #### R UBIGG #### [facility] [address] [place] [address] Dr. Calin Marshall Reflex Criteria: Comment Normal [facility] Comment on above: Result Comment: The HPV DNA reflex criteria were not met with this specimen result therefore, no HPV testing was performed. . Performed By: #### R UBIGG #### [facility] [address] [place] [address] Dr. Calin Marshall Specimen adequacy: Comment Normal [facility] Comment on above: Result Comment: Sati sfactory for evaluation. No endocervical component is identified. Performed By: #### R UBIGG #### [facility] [address] [place] [address] Dr. Calin Marshall CHLAMYDIA/GONOCOCCUS RAUL (SW AB/URINE/PAPon 09-08-2022 Chlamydia trachomatis, RAUL Negative Normal Negative [facility] Comment on above: Performed By: #### C T/NGNA #### [facility] [address] [place] [address] Dr. Calin Marshall Neisseria gonorrhoeae, RAUL Negative Normal Negative [facility] Comment on above: Performed By: #### C T/NGNA #### [facility] [address] [place] [address] Dr. Calin Marshall HEP B SURFACE ANTIGEN SCREEN on 08-11-2022 HBsAg Screen Negative Normal Negative [facility] Comment on above: Performed By: #### C MP, LIPA #### [facility] [address] [place] [address] Dr. Calin Marshall HEPATITIS C VIRUS AB W/ REFL EX QUANTon 08-11-2022 HCV AB <0.1 Normal 0.0-0.9 [facility] Comment on above: Performed By: #### R UBIGG #### [facility] [address] [place] [address] Dr. Calin Marshall Interpretation: Comment Normal [facility] Comment on above: Result Comment: Nega tive Not infected with HCV, unless recent infection is suspected or other evidence exists to indicate HCV infection. Performed By: #### R UBIGG #### [facility] [address] [place] [address] Dr. Calin Marshall HIV 1 AND 2 WITH REFLEXon HIV Screen 4th Generation wRfx Non-Reactive Normal Non Reactive [facility] Comment on above: Result Comment: HIV Negative HIV-1/HIV-2 antibodies and HIV-1 p24 antigen were NOT detected. There is no laboratory evidence of HIV infection. Performed By: #### H IV12 #### [facility] [address] [place] [address] Dr. Calin Marshall RPR QUANTon 08-11-2022 Rapid Plasma Reagin, Quant Non-Reactive Normal NonRea<1:1 [facility] Comment on above: Result Comment: Plea se Note: This test does not meet current guidelines for screening and diagnosis of syphilis. This test is intended for following treatment response in patients being treated for syphilis infection. To screen for syphilis infection, a reflex cascade that includes both RPR and a treponema-specific assay should be utilized, such as Treponema pallidum (Syphilis) Screening [place] (599241) or Rapid Plasma Reagin (RPR) Test With Reflex to Quantitative RPR and Confirmatory Treponema pallidum Antibodies (720205). Performed By: #### R PRQ #### [facility] [address] [place] [address] Dr. Calin Marshall RUBELLA AB IGGon 08-11-2022 Rubella Antibodies, IgG 12.10 index Normal Immune >0.99 [facility] Comment on above: Result Comment: Non- immune <0.90 Equivocal 0.90 - 0.99 Immune >0.99 Performed By: #### R UBIGG #### [facility] [address] [place] [address] Dr. Calin Marshall CBC AUTO DIFFon 08-10-2022 BASO # 0.0 103/ul Normal 0.0-0.1 [facility] Comment on above: Performed By: #### R UBIGG #### [facility] [address] [place] [address] Dr. Calin Marshall Basophils/100 WBC (Bld) 0.4 % Normal 0.2-2.0 [facility] Comment on above: Performed By: #### R UBIGG #### [facility] [address] [place] [address] Dr. Calin Marshall EO # 0.1 103/ul Normal 0.0-0.7 [facility] Comment on above: Performed By: #### R UBIGG #### [facility] [address] [place] [address] Dr. Calin Marshall Eosinophils/100 WBC (Bld) 0.7 % Critically low 0.9-7.0 [facility] Comment on above: Performed By: #### R UBIGG #### [facility] [address] [place] [address] Dr. Calin Marshall Erythrocyte distribution width (RBC) [Ratio] 12.6 % Normal 11.0-15.0 [facility] Comment on above: Performed By: #### R UBIGG #### [facility] [address] [place] [address] Dr. Calin Marshall Hematocrit (Bld) [Volume fraction] 37.6 % Normal 36.0-48.0 [facility] Comment on above: Performed By: #### R UBIGG #### [facility] [address] [place] [address] Dr. Calin Marshall Hemoglobin (Bld) [Mass/Vol] 12.5 g/dL Normal 12.0-16.0 [facility] Comment on above: Performed By: #### R UBIGG #### [facility] [address] [place] [address] Dr. Calin Marshall IG # 0.03 10e3/ul Normal 0.00-0.03 [facility] Comment on above: Performed By: #### R UBIGG #### [facility] [address] [place] [address] Dr. Calin Marshall IG % 0.3 % Normal 0.0-0.5 [facility] Comment on above: Performed By: #### R UBIGG #### [facility] [address] [place] [address] Dr. Calin Marshall LYMPH # 2.5 103/ul Normal 1.2-3.8 [facility] Comment on above: Performed By: #### R UBIGG #### [facility] [address] [place] [address] Dr. Calin Marshall Lymphocytes/100 WBC (Bld) 22.3 % Normal 20.5-60.0 [facility] Comment on above: Performed By: #### R UBIGG #### [facility] [address] [place] [address] Dr. Calin Marshall MANUAL DIFF REQ NO Normal [facility] Comment on above: Performed By: #### R UBIGG #### [facility] [address] [place] [address] Dr. Calin Marshall MCH (RBC) [Entitic mass] 29.8 pg Normal 26.7-34.0 [facility] Comment on above: Performed By: #### R UBIGG #### [facility] [address] [place] [address] Dr. Calin Marshall MCHC (RBC) [Mass/Vol] 33.2 g/dL Normal 29.9-35.2 [facility] Comment on above: Performed By: #### R UBIGG #### [facility] [address] [place] [address] Dr. Calin Marshall MCV (RBC) [Entitic vol] 89.5 fL Normal 81.0-99.0 [facility] Comment on above: Performed By: #### R UBIGG #### [facility] [address] [place] [address] Dr. Calin Marshall MONO # 0.5 103/ul Normal 0.3-0.8 [facility] Comment on above: Performed By: #### R UBIGG #### [facility] [address] [place] [address] Dr. Calin Mrashall Monocytes/100 WBC (Bld) 4.3 % Normal 1.7-12.0 [facility] Comment on above: Performed By: #### R UBIGG #### [facility] [address] [place] [address] Dr. Calin Marshall NEUT # 8.0 103/ul Critically high 1.4-6.5 [facility] Comment on above: Performed By: #### R UBIGG #### [facility] [address] [place] [address] Dr. Calin Marshall Neutrophils/100 WBC (Bld) 72.0 % Normal 43.0-75.0 [facility] Comment on above: Performed By: #### R UBIGG #### [facility] [address] [place] [address] Dr. Calin Marshall Platelet mean volume (Bld) [Entitic vol] 10.2 fL Normal 9.5-13.5 [facility] Comment on above: Performed By: #### R UBIGG #### [facility] [address] [place] [address] Dr. Calin Marshall PLT 362 103/ul Normal 150-450 [facility] Comment on above: Performed By: #### R UBIGG #### [facility] [address] [place] [address] Dr. Calin Marshall RBC 4.20 106/ul Normal 4.20-5.40 [facility] Comment on above: Performed By: #### R UBIGG #### [facility] [address] [place] [address] Dr. Calin Marshall WBC 11.0 103/ul Normal 4.0-11.0 [facility] Comment on above: Performed By: #### R UBIGG #### [facility] [address] [place] [address] Dr. Calin Marshall CULTURE URINEon 08-10-2022 CULTURE URINE Culture Observations : LIGHT GROWTH OF MIXED GENITAL MARIO. NO POTENTIAL PATHOGENS SEEN. Normal [facility] Comment on above: Performed By: #### R UBIGG #### [facility] [address] [place] [address] Dr. Calin Marshall DRUG SCREEN RAPID (URINE)on 08-10-2022 AMP Negative Normal NEGATIVE [facility] Comment on above: Performed By: #### D RUGRPD #### [facility] [address] [place] [address] Dr. Calin Marshall BAR Negative Normal NEGATIVE [facility] Comment on above: Performed By: #### D RUGRPD #### [facility] [address] [place] [address] Dr. Calin Marshall BUP Negative Normal NEGATIVE [facility] Comment on above: Performed By: #### D RUGRPD #### [facility] [address] [place] [address] Dr. Calin Marshall BZO Negative Normal NEGATIVE [facility] Comment on above: Performed By: #### D RUGRPD #### [facility] [address] [place] [address] Dr. Calin Marshall ROSARIO Negative Normal NEGATIVE [facility] Comment on above: Performed By: #### D RUGRPD #### [facility] [address] [place] [address] Dr. Calin Marshall CUT-OFFS SEE BELOW Normal [facility] Comment on above: Result Comment: AMP (Amphetamine): 500ng/mL, BAR (Barbituates): 200 ng/mL, BZO (Benzodiazepines): 150 ng/mL, BUP (Buprenorphine): 10 ng/mL, ROSARIO (Cocaine): 150 ng/mL, mAMP (Methamphetamine): 500 ng/mL, MTD (Methadone): 200 ng/mL, OPI (Opiates): 100 ng/mL, OXY (Oxycodone): 100 ng/mL, PCP (Phencyclidine): 25 ng/mL, PPX (Propoxyphene): 300 ng/mL, THC (Cannabinoids): 50 ng/mL, TCA (Trycyclic Antidepressants): 300 ng/mL Performed By: #### D RUGRPD #### [facility] [address] [place] [address] Dr. Calin Marshall DRUG CUT HEADER DRUG CLASS TEST SYST EM CUT-OFF CONCENTRATIONS ARE FOLLOWS: Normal [facility] Comment on above: Performed By: #### D RUGRPD #### [facility] [address] [address] [address] Calin Marshall mAMP Negative Normal NEGATIVE [facility] Comment on above: Performed By: #### D RUGRPD #### [facility] [address] [address] [address] Calin Marshall MTD Negative Normal NEGATIVE [facility] Comment on above: Performed By: #### D RUGRPD #### [facility] [address] [address] [address] Calin Marshall OPI Negative Normal NEGATIVE [facility] Comment on above: Performed By: #### D RUGRPD #### [facility] [address] [address] [address] Calin Marshall OXY Negative Normal NEGATIVE [facility] Comment on above: Performed By: #### D RUGRPD #### [facility] [address] [place] [address] Dr. Calin Marshall PCP Negative Normal NEGATIVE [facility] Comment on above: Performed By: #### D RUGRPD #### [facility] [address] [place] [address] Dr. Calin Marshall PPX Negative Normal NEGATIVE [facility] Comment on above: Performed By: #### D RUGRPD #### [facility] [address] [place] [address] Dr. Calin Marshall TCA Positive Abnormal NEGATIVE [facility] Comment on above: Performed By: #### D RUGRPD #### [facility] [address] [place] [address] Dr. Calin Marshall THC Positive Abnormal NEGATIVE [facility] Comment on above: Performed By: #### D RUGRPD #### [facility] [address] [place] [address] Dr. Calin Marshall GLYCOHEMOGLOBIN A1Con 2022 ADA RECOMMENDATION SEE BELOW Normal [facility] Comment on above: Result Comment: ADA RECOMMENDED LIMIT 4.0 - 6.0 ADA THERAPEUTIC TARGET < 7.0 ACTION SUGGESTED > 7.0 Performed By: #### C MP, LIPA #### [facility] [address] [place] [address] Dr. Calin Marshall Glucose [Mass/Vol] 97 mg/dL Normal [facility] Comment on above: Performed By: #### C YULIANA LIPA #### [facility] [address] [place] [address] Dr. Calin Marshall HbA1c (Bld) [Mass fraction] 5.0 % Normal 4.5-6.2 [facility] Comment on above: Performed By: #### C YULIANA LIPA #### [facility] [address] [place] [address] Dr. Calin Marshall CHON BOX TEST PT SEND OUTo n 08-10-2022 SENT TO REF LAB 08/10/2022 Normal [facility] Comment on above: Performed By: #### R UBIGG #### [facility] [address] [place] [address] Dr. Calin Marshall TYPE AND SCREENon 08-10-2022 TYPE AND SCREEN Negative Normal [facility] Comment on above: Performed By: #### R UBIGG #### [facility] [address] [place] [address] Dr. Calin Marshall US PREG TVon 07-26-2022 [...] CALDERON OLSON Date: 2022-07-26 07:08 Normal [facility] CBC AUTO DIFFon 07-12-2022 BASO # 0.1 103/ul Normal 0.0-0.1 [facility] Comment on above: Performed By: #### R UBIGG #### [facility] [address] [place] [address] Dr. Calin Marshall Basophils/100 WBC (Bld) 0.3 % Normal 0.2-2.0 [facility] Comment on above: Performed By: #### R UBIGG #### [facility] [address] [place] [address] Dr. Calin Marshall EO # 0.0 103/ul Normal 0.0-0.7 [facility] Comment on above: Performed By: #### R UBIGG #### [facility] [address] [place] [address] Dr. Calin Marshall Eosinophils/100 WBC (Bld) 0.2 % Critically low 0.9-7.0 [facility] Comment on above: Performed By: #### R UBIGG #### [facility] [address] [place] [address] Dr. Calin Marshall Erythrocyte distribution width (RBC) [Ratio] 11.9 % Normal 11.0-15.0 [facility] Comment on above: Performed By: #### R UBIGG #### [facility] [address] [place] [address] Dr. Calin Marshall Hematocrit (Bld) [Volume fraction] 40.8 % Normal 36.0-48.0 [facility] Comment on above: Performed By: #### R UBIGG #### [facility] [address] [place] [address] Dr. Calin Marshall Hemoglobin (Bld) [Mass/Vol] 14.4 g/dL Normal 12.0-16.0 [facility] Comment on above: Performed By: #### R UBIGG #### [facility] [address] [place] [address] Dr. Calin Marshall IG # 0.06 10e3/ul Critically high 0.00-0.03 [facility] Comment on above: Performed By: #### R UBIGG #### [facility] [address] [place] [address] Dr. Calin Marshall IG % 0.3 % Normal 0.0-0.5 [facility] Comment on above: Performed By: #### R UBIGG #### [facility] [address] [address] [address] Calin Marshall LYMPH # 3.4 103/ul Normal 1.2-3.8 [facility] Comment on above: Performed By: #### R UBIGG #### [facility] [address] [place] [address] Dr. Calin Marshall Lymphocytes/100 WBC (Bld) 18.6 % Critically low 20.5-60.0 [facility] Comment on above: Performed By: #### R UBIGG #### [facility] [address] [place] [address] Dr. Calin Marshall MANUAL DIFF REQ NO Normal [facility] Comment on above: Performed By: #### R UBIGG #### [facility] [address] [place] [address] Dr. Calin Marshall MCH (RBC) [Entitic mass] 30.3 pg Normal 26.7-34.0 [facility] Comment on above: Performed By: #### R UBIGG #### [facility] [address] [place] [address] Dr. Calin Marshall MCHC (RBC) [Mass/Vol] 35.3 g/dL Critically high 29.9-35.2 [facility] Comment on above: Performed By: #### R UBIGG #### [facility] [address] [place] [address] Dr. Calin Marshall MCV (RBC) [Entitic vol] 85.7 fL Normal 81.0-99.0 [facility] Comment on above: Performed By: #### R UBIGG #### [facility] [address] [place] [address] Dr. Calin Marshall MONO # 0.9 103/ul Critically high 0.3-0.8 [facility] Comment on above: Performed By: #### R UBIGG #### [facility] [address] [place] [address] Dr. Calin Marshall Monocytes/100 WBC (Bld) 4.9 % Normal 1.7-12.0 [facility] Comment on above: Performed By: #### R UBIGG #### [facility] [address] [place] [address] Dr. Calin Marshall NEUT # 13.8 103/ul Critically high 1.4-6.5 [facility] Comment on above: Performed By: #### R UBIGG #### [facility] [address] [place] [address] Dr. Calin Marshall Neutrophils/100 WBC (Bld) 75.7 % Critically high 43.0-75.0 [facility] Comment on above: Performed By: #### R UBIGG #### [facility] [address] [place] [address] Dr. Calin Marshall Platelet mean volume (Bld) [Entitic vol] 9.5 fL Normal 9.5-13.5 [facility] Comment on above: Performed By: #### R UBIGG #### [facility] [address] [place] [address] Dr. Calin Marshall PLT 427 103/ul Normal 150-450 [facility] Comment on above: Performed By: #### R UBIGG #### [facility] [address] [place] [address] Dr. Calin Marsahll RBC 4.76 106/ul Normal 4.20-5.40 [facility] Comment on above: Performed By: #### R UBIGG #### [facility] [address] [place] [address] Dr. Calin Marshall WBC 18.2 103/ul Critically high 4.0-11.0 [facility] Comment on above: Performed By: #### R UBIGG #### [facility] [address] [place] [address] Dr. Calin Marshall ER URINE PROFILEon 3 Bilirubin Ql (U) Negative Normal NEGATIVE [facility] Comment on above: Performed By: #### C YULIANA LIPA #### [facility] [address] [place] [address] Dr. Calin Marshall Clarity (U) CLEAR Normal CLEAR [facility] Comment on above: Performed By: #### C MP LIPA #### [facility] [address] [place] [address] Dr. Calin Marshall Color (U) YELLOW Normal YELLOW [facility] Comment on above: Performed By: #### C MP, LIPA #### [facility] [address] [place] [address] Dr. Calin HANDY A micrscopic examination will be performed if indicated. Normal [facility] Comment on above: Performed By: #### C MP, LIPA #### [facility] [address] [place] [address] Dr. Calin Marshall Glucose Ql (U) Negative Normal NEGATIVE [facility] Comment on above: Performed By: #### C MP, LIPA #### [facility] [address] [place] [address] Dr. Calin Marshall Hemoglobin Ql (U) SMALL Abnormal NEGATIVE [facility] Comment on above: Performed By: #### C MP, LIPA #### [facility] [address] [place] [address] Dr. Calin Marshall Ketones Ql (U) >=80 Abnormal NEGATIVE [facility] Comment on above: Performed By: #### C MP, LIPA #### [facility] [address] [place] [address] Dr. Calin Marshall LEUKOCYTES Negative Normal NEGATIVE [facility] Comment on above: Performed By: #### C MP, LIPA #### [facility] [address] [place] [address] Dr. Calin Marshall Nitrite Ql (U) Negative Normal NEGATIVE [facility] Comment on above: Performed By: #### C MP, LIPA #### [facility] [address] [place] [address] Dr. Calin Marshall pH (U) 6.0 [pH] Normal 5-9 [facility] Comment on above: Performed By: #### C MP, LIPA #### [facility] [address] [place] [address] Dr. Calin Marshall Protein (U) [Mass/Vol] 30 mg/dL Abnormal NEGATIVE/ TRA CE [facility] Comment on above: Performed By: #### C MP, LIPA #### [facility] [address] [place] [address] Dr. Calin Marshall SPEC GRAVITY >=1.030 Abnormal 1.005-<=1.025 [facility] Comment on above: Performed By: #### C MP, LIPA #### [facility] [address] [place] [address] Dr. Calin Marshall UR MICRO IND INDICATED Normal [facility] Comment on above: Performed By: #### C MP, LIPA #### [facility] [address] [place] [address] Dr. Calin Marshall Urobilinogen Qn (U) 0.2 {Bridger'U}/dL Normal 0.2 - 1. 0 [facility] Comment on above: Performed By: #### C MP, LIPA #### [facility] [address] [place] [address] Dr. Calin Marshall LIPASEon 07-12-2022 Lipase [Catalytic activity/Vol] 186.0 U/L Normal 73.0-393.0 [facility] Comment on above: Performed By: #### C MP, LIPA #### [facility] [address] [place] [address] Dr. Calin Marshall PROF 14(COMP METB)on 023 Albumin [Mass/Vol] 4.6 g/dL Normal 3.4-5.0 [facility] Comment on above: Performed By: #### C MP, LIPA #### [facility] [address] [place] [address] Dr. Calin Marshall Albumin/Globulin [Mass ratio] 1.0 {ratio} Normal [facility] Comment on above: Performed By: #### C MP, LIPA #### [facility] [address] [place] [address] Dr. Calin Marshall ALP [Catalytic activity/Vol] 100 U/L Normal 46-116 [facility] Comment on above: Performed By: #### C MP, LIPA #### [facility] [address] [place] [address] Dr. Calin Marshall ALT [Catalytic activity/Vol] 25 U/L Normal 14-59 [facility] Comment on above: Performed By: #### C MP, LIPA #### [facility] [address] [address] [address] Calin Marshall Anion gap [Moles/Vol] 18.6 mmol/L Normal [facility] Comment on above: Performed By: #### C MP, LIPA #### [facility] [address] [address] [address] Calin Marshall AST [Catalytic activity/Vol] 15 U/L Normal 15-37 [facility] Comment on above: Performed By: #### C MP, LIPA #### [facility] [address] [address] [address] Calin Marshall Bilirubin [Mass/Vol] 0.5 mg/dL Normal 0.2-1.0 [facility] Comment on above: Performed By: #### C MP, LIPA #### [facility] [address] [place] [address] Dr. Calin Marshall Calcium [Mass/Vol] 10.8 mg/dL Critically high 8.5-10.1 [facility] Comment on above: Performed By: #### C MP, LIPA #### [facility] [address] [place] [address] Dr. Calin Marshall Chloride [Moles/Vol] 95 mmol/L Critically low 98-107 [facility] Comment on above: Performed By: #### C MP, LIPA #### [facility] [address] [address] [address] Calin Marshall CO2 [Moles/Vol] 22.8 mmol/L Normal 21.0-32.0 [facility] Comment on above: Performed By: #### C MP, LIPA #### [facility] [address] [place] [address] Dr. Calin Marshall Creatinine [Mass/Vol] 0.86 mg/dL Normal 0.55-1.02 [facility] Comment on above: Performed By: #### C MP, LIPA #### [facility] [address] [place] [address] Dr. Calin Marshall EGFR-AF BENINESE >60 Normal >=60 [facility] Comment on above: Performed By: #### C MP, LIPA #### [facility] [address] [address] [address] Calin Marshall EGFR-NON AF BENINESE >60 Normal >=60 [facility] Comment on above: Performed By: #### C MP, LIPA #### [facility] [address] [address] [address] Calin Marshall Globulin (S) [Mass/Vol] 4.6 g/dL Normal [facility] Comment on above: Performed By: #### C MP, LIPA #### [facility] [address] [address] [address] Calin Marshall Glucose [Mass/Vol] 79 mg/dL Normal 74-106 [facility] Comment on above: Performed By: #### C MP, LIPA #### [facility] [address] [place] [address] Dr. Calin Marshall Potassium [Moles/Vol] 3.4 mmol/L Critically low 3.5-5.1 [facility] Comment on above: Performed By: #### C MP, LIPA #### [facility] [address] [address] [address] Calin Marshall Protein [Mass/Vol] 9.2 g/dL Critically high 6.4-8.2 [facility] Comment on above: Performed By: #### C MP, LIPA #### [facility] [address] [place] [address] Dr. Calin Marshall Sodium [Moles/Vol] 133 mmol/L Critically low 136-145 [facility] Comment on above: Performed By: #### C MP, LIPA #### [facility] [address] [place] [address] Dr. Calin Marshall Urea nitrogen [Mass/Vol] 10.0 mg/dL Normal 7.0-18.0 [facility] Comment on above: Performed By: #### C MP, LIPA #### [facility] [address] [place] [address] Dr. Calin Marshall Urea nitrogen/Creatinine [Mass ratio] 11.6 mg/mg Normal [facility] Comment on above: Performed By: #### C MP, LIPA #### [facility] [address] [place] [address] Dr. Calin Marshall URINE MICROSCOPIC ONLYon BACTERIA TRACE Abnormal NONE SEEN [facility] Comment on above: Performed By: #### C MP, LIPA #### [facility] [address] [place] [address] Dr. Calin Marshall Bacteria identified Cx Nom (U) NOT INDICATED Normal [facility] Comment on above: Performed By: #### C MP, LIPA #### [facility] [address] [place] [address] Dr. Calin Marshall CAST NONE SEEN Normal NONE SEEN [facility] Comment on above: Performed By: #### C MP, LIPA #### [facility] [address] [place] [address] Dr. Calin Marshall Crystals LM Nom (Urine sed) NONE SEEN Normal NONE SEEN [facility] Comment on above: Performed By: #### C MP, LIPA #### [facility] [address] [place] [address] Dr. Calin Marshall Epithelial cells LM Ql (Urine sed) RARE Normal NONE SEEN /RARE [facility] Comment on above: Performed By: #### C MP, LIPA #### [facility] [address] [place] [address] Dr. Calin Marshall MUCOUS NONE SEEN Normal NONE SEEN [facility] Comment on above: Performed By: #### C MP, LIPA #### [facility] [address] [place] [address] Dr. Calin Marshall RBC 0-2 Normal 0-2 [facility] Comment on above: Performed By: #### C MP, LIPA #### [facility] [address] [place] [address] Dr. Calin Marshall WBC NONE SEEN Normal NONE SEEN [facility] Comment on above: Performed By: #### C MP, LIPA #### [facility] [address] [place] [address] Dr. Calin Marshall CBC AUTO DIFFon 12-30-2022 BASO # 0.1 103/ul Normal 0.0-0.1 [facility] Comment on above: Performed By: #### C MP, LIPA #### [facility] [address] [place] [address] Dr. Calin Marshall Basophils/100 WBC (Bld) 0.4 % Normal 0.2-2.0 [facility] Comment on above: Performed By: #### C MP, LIPA #### [facility] [address] [place] [address] Dr. Calin Marshall EO # 0.1 103/ul Normal 0.0-0.7 [facility] Comment on above: Performed By: #### C MP, LIPA #### [facility] [address] [place] [address] Dr. Calin Marshall Eosinophils/100 WBC (Bld) 0.3 % Critically low 0.9-7.0 [facility] Comment on above: Performed By: #### C MP, LIPA #### [facility] [address] [place] [address] Dr. Calin Marshall Erythrocyte distribution width (RBC) [Ratio] 12.0 % Normal 11.0-15.0 [facility] Comment on above: Performed By: #### C MP, LIPA #### [facility] [address] [place] [address] Dr. Calin Marshall Hematocrit (Bld) [Volume fraction] 40.3 % Normal 36.0-48.0 [facility] Comment on above: Performed By: #### C MP, LIPA #### [facility] [address] [place] [address] Dr. Calin Marshall Hemoglobin (Bld) [Mass/Vol] 14.3 g/dL Normal 12.0-16.0 [facility] Comment on above: Performed By: #### C MP, LIPA #### [facility] [address] [place] [address] Dr. Calin Marshall IG # 0.05 10e3/ul Critically high 0.00-0.03 [facility] Comment on above: Performed By: #### C MP, LIPA #### [facility] [address] [address] [address] Calin Marshall IG % 0.3 % Normal 0.0-0.5 [facility] Comment on above: Performed By: #### C MP, LIPA #### [facility] [address] [address] [address] Calin Marshall LYMPH # 3.5 103/ul Normal 1.2-3.8 [facility] Comment on above: Performed By: #### C MP, LIPA #### [facility] [address] [place] [address] Dr. Calin Marshall Lymphocytes/100 WBC (Bld) 20.3 % Critically low 20.5-60.0 [facility] Comment on above: Performed By: #### C MP, LIPA #### [facility] [address] [place] [address] Dr. Calin Marshall MANUAL DIFF REQ NO Normal [facility] Comment on above: Performed By: #### C MP, LIPA #### [facility] [address] [place] [address] Dr. Calin Marshall MCH (RBC) [Entitic mass] 30.5 pg Normal 26.7-34.0 [facility] Comment on above: Performed By: #### C MP, LIPA #### [facility] [address] [place] [address] Dr. Calin Marshall MCHC (RBC) [Mass/Vol] 35.5 g/dL Critically high 29.9-35.2 [facility] Comment on above: Performed By: #### C MP, LIPA #### [facility] [address] [address] [address] Calin Marshall MCV (RBC) [Entitic vol] 85.9 fL Normal 81.0-99.0 [facility] Comment on above: Performed By: #### C MP, LIPA #### [facility] [address] [place] [address] Dr. Calin Marshall MONO # 0.8 103/ul Normal 0.3-0.8 [facility] Comment on above: Performed By: #### C MP, LIPA #### [facility] [address] [place] [address] Dr. Calin Marshall Monocytes/100 WBC (Bld) 4.6 % Normal 1.7-12.0 [facility] Comment on above: Performed By: #### C MP, LIPA #### [facility] [address] [place] [address] Dr. Calin Marshall NEUT # 12.8 103/ul Critically high 1.4-6.5 [facility] Comment on above: Performed By: #### C MP, LIPA #### [facility] [address] [place] [address] Dr. Calin Marshall Neutrophils/100 WBC (Bld) 74.1 % Normal 43.0-75.0 [facility] Comment on above: Performed By: #### C MP, LIPA #### [facility] [address] [place] [address] Dr. Calin Marshall Platelet mean volume (Bld) [Entitic vol] 9.6 fL Normal 9.5-13.5 [facility] Comment on above: Performed By: #### C MP, LIPA #### [facility] [address] [place] [address] Dr. Calin Marshall PLT 415 103/ul Normal 150-450 [facility] Comment on above: Performed By: #### C MP, LIPA #### [facility] [address] [place] [address] Dr. Calin Marshall RBC 4.69 106/ul Normal 4.20-5.40 [facility] Comment on above: Performed By: #### C MP, LIPA #### [facility] [address] [place] [address] Dr. Calin Marshall WBC 17.3 103/ul Critically high 4.0-11.0 [facility] Comment on above: Performed By: #### C MP, LIPA #### [facility] [address] [place] [address] Dr. Calin Marshall CULTURE URINEon 12-30-2022 CULTURE URINE Culture Observations : MODERATE GROWTH OF MIXED GENITAL MARIO. NO POTENTIAL PATHOGENS SEEN. Normal [facility] Comment on above: Performed By: #### R UBIGG #### [facility] [address] [place] [address] Dr. Calin Marshall ER URINE PROFILEon 2 Bilirubin Ql (U) Negative Normal NEGATIVE [facility] Comment on above: Performed By: #### E RUR, UMICRO #### [facility] [address] [place] [address] Dr. Calin Marshall Clarity (U) CLEAR Normal CLEAR [facility] Comment on above: Performed By: #### E RUR, UMICRO #### [facility] [address] [place] [address] Dr. Calin Marshall Color (U) LT. YELLOW Normal YELLOW [facility] Comment on above: Performed By: #### E RUR, UMICRO #### [facility] [address] [place] [address] Dr. Calin Marshall ERUAHJosh A micrscopic examination will be performed if indicated. Normal [facility] Comment on above: Performed By: #### E RUR UMICRO #### [facility] [address] [place] [address] Dr. Calin Marshall Glucose Ql (U) Negative Normal NEGATIVE [facility] Comment on above: Performed By: #### E RUR, UMICRO #### [facility] [address] [place] [address] Dr. Calin Marshall Hemoglobin Ql (U) SMALL Abnormal NEGATIVE [facility] Comment on above: Performed By: #### E RUR, UMICRO #### [facility] [address] [place] [address] Dr. Calin Marshall Ketones Ql (U) 15 mg/dl Abnormal NEGATIVE [facility] Comment on above: Performed By: #### E RUR, UMICRO #### [facility] [address] [place] [address] Dr. Calin Marshall LEUKOCYTES Negative Normal NEGATIVE [facility] Comment on above: Performed By: #### E RUR, UMICRO #### [facility] [address] [place] [address] Dr. Calin Marshall Nitrite Ql (U) Negative Normal NEGATIVE [facility] Comment on above: Performed By: #### KENNA ZHOU #### [facility] [address] [place] [address] Dr. Calin Marhsall pH (U) 6.0 [pH] Normal 5-9 [facility] Comment on above: Performed By: #### KENNA ZHOU #### [facility] [address] [place] [address] Dr. Calin Marshall SPEC GRAVITY <=1.005 Abnormal 1.005-<=1.025 [facility] Comment on above: Performed By: #### KENNA ZHOU #### [facility] [address] [place] [address] Dr. Calin Marshall UA PROTEIN Negative Normal NEGATIVE/ TRACE [facility] Comment on above: Performed By: #### KENNA ZHOU #### [facility] [address] [place] [address] Dr. Calin Marshall UR MICRO IND INDICATED Normal [facility] Comment on above: Performed By: #### ELDA ZHOURO #### [facility] [address] [place] [address] Dr. Calin Marshall Urobilinogen Qn (U) 0.2 {Bridger'U}/dL Normal 0.2 - 1. 0 [facility] Comment on above: Performed By: #### ELDA ZHOURO #### [facility] [address] [place] [address] Dr. Calin Marshall PROF 14(COMP METB)on 022 Albumin [Mass/Vol] 4.4 g/dL Normal 3.4-5.0 [facility] Comment on above: Performed By: #### C YULIANA LIPA #### [facility] [address] [place] [address] Dr. Calin Marshall Albumin/Globulin [Mass ratio] 1.0 {ratio} Normal [facility] Comment on above: Performed By: #### C YULIANA LIPA #### [facility] [address] [address] [address] Calin Marshall ALP [Catalytic activity/Vol] 93 U/L Normal 46-116 [facility] Comment on above: Performed By: #### C MP, LIPA #### [facility] [address] [address] [address] Calin Marshall ALT [Catalytic activity/Vol] 34 U/L Normal 14-59 [facility] Comment on above: Performed By: #### C MP, LIPA #### [facility] [address] [address] [address] Calin Marshall Anion gap [Moles/Vol] 17.3 mmol/L Normal [facility] Comment on above: Performed By: #### C MP, LIPA #### [facility] [address] [place] [address] Dr. Calin Marshall AST [Catalytic activity/Vol] 21 U/L Normal 15-37 [facility] Comment on above: Performed By: #### C MP, LIPA #### [facility] [address] [address] [address] Calin Marshall Bilirubin [Mass/Vol] 0.6 mg/dL Normal 0.2-1.0 [facility] Comment on above: Performed By: #### C MP, LIPA #### [facility] [address] [place] [address] Dr. Calin Marshall Calcium [Mass/Vol] 10.7 mg/dL Critically high 8.5-10.1 [facility] Comment on above: Performed By: #### C MP, LIPA #### [facility] [address] [place] [address] Dr. Calin Marshall Chloride [Moles/Vol] 96 mmol/L Critically low 98-107 [facility] Comment on above: Performed By: #### C MP, LIPA #### [facility] [address] [address] [address] Calin Marshall CO2 [Moles/Vol] 23.1 mmol/L Normal 21.0-32.0 [facility] Comment on above: Performed By: #### C MP, LIPA #### [facility] [address] [address] [address] Calin Marshall Creatinine [Mass/Vol] 0.83 mg/dL Normal 0.55-1.02 [facility] Comment on above: Performed By: #### C MP, LIPA #### [facility] [address] [address] [address] Calin Marshall EGFR-AF BENINESE >60 Normal >=60 [facility] Comment on above: Performed By: #### C MP, LIPA #### [facility] [address] [address] [address] Calin Marshall EGFR-NON AF BENINESE >60 Normal >=60 [facility] Comment on above: Performed By: #### C MP, LIPA #### [facility] [address] [address] [address] Calin Marshall Globulin (S) [Mass/Vol] 4.4 g/dL Normal [facility] Comment on above: Performed By: #### C MP, LIPA #### [facility] [address] [address] [address] Calin Marshall Glucose [Mass/Vol] 98 mg/dL Normal 74-106 [facility] Comment on above: Performed By: #### C MP, LIPA #### [facility] [address] [address] [address] Calin Marshall Potassium [Moles/Vol] 3.4 mmol/L Critically low 3.5-5.1 [facility] Comment on above: Performed By: #### C MP, LIPA #### [facility] [address] [address] [address] Calin Marshall Protein [Mass/Vol] 8.8 g/dL Critically high 6.4-8.2 [facility] Comment on above: Performed By: #### C MP, LIPA #### [facility] [address] [address] [address] Calin Marshall Sodium [Moles/Vol] 133 mmol/L Critically low 136-145 [facility] Comment on above: Performed By: #### C MP, LIPA #### [facility] [address] [address] [address] Calin Marshall Urea nitrogen [Mass/Vol] 8.0 mg/dL Normal 7.0-18.0 [facility] Comment on above: Performed By: #### C MP, LIPA #### [facility] [address] [address] [address] Calin Marshall Urea nitrogen/Creatinine [Mass ratio] 9.6 mg/mg Normal [facility] Comment on above: Performed By: #### C MP, LIPA #### [facility] [address] [address] [address] Calin Marshall URINE MICROSCOPIC ONLYon BACTERIA SMALL Abnormal NONE SEEN [facility] Comment on above: Performed By: #### E RUR, UMICRO #### [facility] [address] [place] [address] Dr. Calin Marshall Bacteria identified Cx Nom (U) INDICATED Normal [facility] Comment on above: Performed By: #### E RUR, UMICRO #### [facility] [address] [place] [address] Dr. Calin Marshall CAST NONE SEEN Normal NONE SEEN [facility] Comment on above: Performed By: #### E RUR, UMICRO #### [facility] [address] [place] [address] Dr. Calin Marshall Crystals LM Nom (Urine sed) NONE SEEN Normal NONE SEEN [facility] Comment on above: Performed By: #### E RUR, UMICRO #### [facility] [address] [place] [address] Dr. Calin Marshall Epithelial cells LM Ql (Urine sed) MODERATE Abnormal NONE SEEN /RARE [facility] Comment on above: Performed By: #### E RUR, UMICRO #### [facility] [address] [place] [address] Dr. Calin Marshall MUCOUS NONE SEEN Normal NONE SEEN [facility] Comment on above: Performed By: #### E RUR, UMICRO #### [facility] [address] [place], [place] [address] Dr. Calin Marshall RBC 2-5 Abnormal 0-2 [facility] Comment on above: Performed By: #### KENNA ZHOU #### [facility] [address] [place], [place] [address] Dr. Calin Marshall WBC 2-5 Abnormal NONE SEEN [facility] Comment on above: Performed By: #### KENNA ZHOU #### [facility] [address] [place], [place] [address] Dr. Calin Marshall Vitamin D 25-OHon 08-09-2021 VIT D 25 OH 29 ng/ml Low >29 [facility] [employer] Comment on above: Result Comment: Baylee min D Status Deficiency <20 ng/mL Insufficiency 20-29 ng/mL Optimal 30-100 ng/mL Possible Toxicity >=150 ng/mL Performed By: #### V ITD #### [facility] [address] [place], [place] [id number] [place] 06-15-2020 Consent [id number]. [id number]:[address] [facility] Registrationon 06-15-2020 Registration [id number]. [id number]:[address] [facility] Follow Up (Plastic Surgery)o n 07-17-2019 Follow [...] Surgical History History of Appendectomy History of [place] tooth extraction Family History Family history of [...] Capsule *Vitals Vital Signs Recorded: 17Jul2019 09:48AM Ucsalefchwu24.2 F, Oral Yfybhnds680 Mqqdicsjv89 Height5 ft 2.5 in Eyqooc040 lb BMI Nifbihexnl62.2 BSA Calculated1.88 Pain Scale0 Physical Exam Examination reveals some erythema in both sites. I have removed the sutures from the chest incision. We have discussed scar maturation and the use of mederma or scar guard 'Scores and Scales' Signatures Electronically signed by : Vikas Garrido MD,; Jul 17 2019 10:00AM EST (Author) Normal [facility] 06-25-2019 [facility] Name NATALEE GUERRA Pathologist: BRIAN SHAH DO Date of Procedure: 06/25/2019 Date Received: 06/25/2019 Date Reported 06/27/2019 Submitting Physician: VIKAS GARRIDO MD Location: [facility] Copy To/Referring/Attending : VIKAS GARRIDO MD Other External # FINAL DIAGNOSIS A. RIGHT NECK MASS: -- EPIDERMOID CYST. B. RIGHT CHEST MASS: -- EPIDERMOID CYST. Electronically Signed Out By BRIAN SHAH DO/JEROME By the signature on this report, the [...] of ellipse 2 central area of specimen /06/26/2019 Normal [facility] History and Physical - Surgi [...] Last Updated: 25-Jun-2019 07:07 by Vikas Garrido) [facility] Operative Reports - yriaon 06-25-2019 Operative Reports - Round O PREOPERATIVE DIAGNOSIS: Mass of right neck and chest. POSTOPERATIVE DIAGNOSIS: Mass of right neck and chest. PROCEDURE: Excision of mass of right neck and chest. 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 ANESTHESIA: MAC. OPERATIVE INDICATIONS: The [...] Vikas Garrido MD EST EST DICTATION NUMBER: [id number] INTERNAL JOB NUMBER: [id number] CC: MIA DORSEY Electronic Signatures: Vikas Garrido) (Signed on 25-Jun-2019 09:40) Authored Unsigned, Draft (SYS GENERATED) (Entered on 25-Jun-2019 09:03) Entered Last Updated: 25-Jun-2019 09:40 by Vikas Garrido) [facility] Otheron 06-25-2019 Name MYRON NATALEE Garrett Chen Pathologist: Mikal BENTON of Procedure: 06/25/2019Date Received: 06/25/2019Date Reported 06/27/2019Submitting Physician: VIKAS GARRIDO MDLocation: [facility] Copy To/Referring/Attending :VIKAS GARRIDO MD Other External # FINAL DIAGNOSISA. RIGHT NECK MASS: -- EPIDERMOID CYST.B. RIGHT CHEST MASS: -- EPIDERMOID CYST. Electronically Signed Out By BRIAN SHAH DO/Igor the signature on this report, the individual [...] ellipse 2 central area of specimen tas/06/26/2019 [facility] Work Phone: Preop Checkliston 06-25-2019 Preop Checklist Preop Checklist: Preop Checklist: Arrival [id number] Arrival Time05:51 Procedure Typecyst off neck, right and upper right chest NPO [id number] 23:00 ID Band Onyes Allergy Bandyes Consent [...] applicable Bowel Prepno Cardiovascular Assessment: Commentsdeer to abelino Respiratory Assessment: Breath Soundsdefer to abelino Neurological Assessment: Level of Consciousnessalert, oriented Mobilitymoves all extremities Able to Express Selfyes Age Appropriateyes Emotional Statuscalm Preop Education: Surgical Site Infection Preventionyes Pain Scales and Managementyes Language / Communication: Language / CommunicationEnglish Electronic Signatures: Mary Jaimes (RN) (Signed 25-Jun-2019 06:11) Authored: Preop Checklist Last Updated: 25-Jun-2019 06:11 by Mary Jaimes (HALEY) [facility] Patient Profile - Preop v2on 06-24-2019 Patient Profile - Preop v2 Profile: Initial Info: How to be AddressedHailey Spoken Language PreferredEnglish Source of Informationpatient Are you currently using the Personal Electronic Health Record or yourdeliverygetFound.ieno Are you interested in learning more about yourdeliverygetFound.ie for the management of your healthnot at this time Instructions Givenbring responsible adult as the jitney driver (procedure may be cancelled if no jitney driver), center location, remove jewerly/piercings, instructed pt that nipple and umbilical piercings must be removed prior to surgery pt states she was told that as long as the lip, bilateral breasts. and belly button piercings were plastic and not metal she can keep them in Stated Reason for Admission cysts removed Primary Contact Name and NumberTrevor Sghjeo-[phone] Other Contact Names and Numbersmatt [facility] [phone] Patient Belongingsclothes only Medications Brought to Hospitalno General Health: Weight in kg83 kilogram(s) Weight in ydj892 pound(s) Weight Methodstated Height in cm158.7 centimeter(s) [...] Are You Currently Breastfeedingno Neurological Symptoms/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 angel ACID LEVELER Symptoms/Conditions Commenthas Nexplanon implant; LMP 4 months ago; 4 months post- Barriers to Managing Healthnone Are You no Relationship/Environ: Resource/Environmental Concernsnone Services Anticipated at Transitionnone Lives Withspouse; dependent child(christelle) Living Arrangementshouse [facility] Substance: Current or Former Substance Use never: [...] material; verbal instruction Cultural Considerationsnone Developmental Considerationsnone Confucianist Considerationsnone Other learner availableno [place] RiskPatient location auto qualifies him/her for HIGH RISK. Are there any cultural, spiritual, zoroastrianism practices/values/needs that are important for us to knowno Pain Scalenumerical 0-10 Pain Scale Educationteaching provided Current Pain Level0 = None Acceptable Pain Level6 = Moderate Expression of Pain (nonverbal)none Lifestyle Changes/Adaptations in Response to Painno change Barriers to Reporting Painnone Chronic Painno Information Review: Allergies, Home Meds and Significant Events have been Reviewed and Verified with Patient/Familyyes Electronic Signatures: Milena Clarke (RN) (Signed 24-Jun-2019 10:05) Authored: Mary Palacios (RN) (Signed 25-Jun-2019 06:08) Authored: Danelle, Additional Information Last Updated: 25-Jun-2019 06:08 by Mary Jaimes (RN) Normal [facility] APTTon 06-21-2019 aPTT Coag (Bld) [Time] 37 s Normal 28 - 38 [facility] Comment on above: Result Comment: THE APTT IS NO LONGER USED FOR MONITORING UNFRACTIONATED HEPARIN THERAPY. FOR MONITORING HEPARIN THERAPY, USE THE HEPARIN ASSAY. Performed By: #### A PTT #### [address] [address] Activated Partial Thrombopla stin Timeon 06-21-2019 aPTT Coag (PPP) [Time] 37 {sec} 28 - 38 [facility] Work Phone: Comment on above: THE APTT IS NO LONGE R USED FOR MONITORING UNFRACTIONATED HEPARIN THERAPY. FOR MONITORING HEPARIN THERAPY, USE THE HEPARIN ASSAY. CBC AND DIFFERENTIALon 06-21 % AUTOMATED IMMATURE GRAN 0.1 % Normal 0.0 - 0.9 [facility] Comment on above: Result Comment: Perc ent differential counts (%) should be interpreted in the context of the absolute cell counts (cells/L). Performed By: #### C BCDF #### [address] [address] Basophils (Bld) [#/Vol] 0.03 10*3/uL Normal 0.00 - 0.10 [facility] Comment on above: Performed By: #### C BCDF #### [address] [address] Eosinophils (Bld) [#/Vol] 0.04 10*3/uL Normal 0.00 - 0.70 [facility] Comment on above: Performed By: #### C BCDF #### [address] [address] Lymphocytes (Bld) [#/Vol] 3.08 10*3/uL Normal 1.20 - 4.80 [facility] Comment on above: Performed By: #### C BCDF #### [address] [address] Monocytes (Bld) [#/Vol] 0.49 10*3/uL Normal 0.10 - 1.00 [facility] Comment on above: Performed By: #### C BCDF #### [address] [address] Neutrophils (Bld) [#/Vol] 5.85 10*3/uL Normal 1.20 - 7.70 [facility] Comment on above: Performed By: #### C BCDF #### [address] [address] Platelets (Bld) [#/Vol] 363 10*3/uL Normal 150 - 450 [facility] Comment on above: Performed By: #### C BCDF #### [address] [address] RBC (Bld) [#/Vol] 4.68 x10E12/L Normal 4.00 - 5.20 [facility] Comment on above: Performed By: #### C BCDF #### [address] [address] WBC (Bld) [#/Vol] 9.5 10*3/uL Normal 4.4 - 11.3 [facility] Comment on above: Performed By: #### C BCDF #### [address] [address] Basophils/100 WBC (Bld) 0.3 % 0.0 - 2.0 [facility] Work Phone: Comment on above: Performed By: #### C BCDF #### [address] [address] Eosinophils/100 WBC (Bld) 0.4 % 0.0 - 6.0 [facility] Work Phone: Comment on above: Performed By: #### C BCDF #### [address] [address] Erythrocyte distribution width (RBC) [Ratio] 11.9 % See Below [facility] Work Phone: Comment on above: Performed By: #### C BCDF #### [facility] [address] [place] [address] Reference Range: 11. 5 - 14.5 Hematocrit (Bld) [Volume fraction] 41.6 % See Below [facility] Work Phone: Comment on above: Performed By: #### C BCDF #### [address] [address] Reference Range: 36. 0 - 46.0 Hemoglobin (Bld) [Mass/Vol] 13.9 g/dL See Below [facility] Work Phone: Comment on above: Performed By: #### C BCDF #### [facility] [address] [place] [address] Reference Range: 12. 0 - 16.0 Lymphocytes/100 WBC (Bld) 32.4 % See Below [facility] Work Phone: Comment on above: Performed By: #### C BCDF #### [facility] [address] [place] [address] Reference Range: 13. 0 - 44.0 MCHC (RBC) [Mass/Vol] 33.4 g/dL See Below [facility] Work Phone: Comment on above: Performed By: #### C BCDF #### [address] [address] Reference Range: 32. 0 - 36.0 MCV (RBC) [Entitic vol] 89 fL 80 - 100 [facility] Work Phone: Comment on above: Performed By: #### C BCDF #### [address] [address] Monocytes/100 WBC (Bld) 5.2 % 2.0 - 10.0 [facility] Work Phone: Comment on above: Performed By: #### C BCDF #### [address] [address] Neutrophils/100 WBC (Bld) 61.6 % See Below [facility] Work Phone: Comment on above: Performed By: #### C BCDF #### [address] [address] Reference Range: 40. 0 - 80.0 [facility] 2018 Albumin [Mass/Vol] 4.8 g/dL Normal 3.4 - 5.0 [facility] Comment on above: Performed By: #### C MP #### [address] [address] ALP [Catalytic activity/Vol] 83 U/L Normal 33 - 110 [facility] Comment on above: Performed By: #### C MP #### [address] [address] ALT [Catalytic activity/Vol] 15 U/L Normal 7 - 45 [facility] Comment on above: Result Comment: Janet ents treated with Sulfasalazine may generate falsely decreased results for ALT. Performed By: #### C MP #### [address] [address] Anion gap [Moles/Vol] 11 mmol/L Normal 10 - 20 [facility] Comment on above: Performed By: #### C MP #### [address] [address] AST [Catalytic activity/Vol] 12 U/L Normal 9 - 39 [facility] Comment on above: Performed By: #### C MP #### [address] [address] Bilirubin [Mass/Vol] 0.3 mg/dL Normal 0.0 - 1.2 [facility] Comment on above: Performed By: #### C MP #### [address] [address] Calcium [Mass/Vol] 10.7 mg/dL High 8.6 - 10.3 [facility] Comment on above: Performed By: #### C MP #### [address] [address] Chloride [Moles/Vol] 102 mmol/L Normal 98 - 107 [facility] Comment on above: Performed By: #### C MP #### [address] [address] Creatinine [Mass/Vol] 0.80 mg/dL Normal 0.50 - 1.05 [facility] Comment on above: Performed By: #### C MP #### [address] [address] GFR- AM. >60 Normal >60 [facility] Comment on above: Result Comment: CALC ULATIONS OF ESTIMATED GFR ARE PERFORMED USING THE MDRD STUDY EQUATION FOR THE IDMS-TRACEABLE CREATININE METHODS. CLIN CHEM 2007;53:766-72 Performed By: #### C MP #### [address] [address] GFR-NON AM. >60 Normal >60 [facility] Comment on above: Performed By: #### C MP #### [address] [address] Glucose [Mass/Vol] 82 mg/dL Normal 74 - 99 [facility] Comment on above: Performed By: #### C MP #### [address] [address] HCO3 (Bld) [Moles/Vol] 26 mmol/L Normal 21 - 32 [facility] Comment on above: Performed By: #### C MP #### [address] [address] Potassium [Moles/Vol] 4.1 mmol/L Normal 3.5 - 5.3 [facility] Comment on above: Performed By: #### C MP #### [address] [address] Protein [Mass/Vol] 8.2 g/dL Normal 6.4 - 8.2 [facility] Comment on above: Performed By: #### C MP #### [facility] [address] [place] [address] Sodium [Moles/Vol] 135 mmol/L Low 136 - 145 [facility] Comment on above: Performed By: #### C MP #### [facility] [address] [place] [address] Urea nitrogen [Mass/Vol] 16 mg/dL Normal 6 - 23 [facility] Comment on above: Performed By: #### C MP #### [facility] [address] [place] [address] Complete Blood Count + Diffe youngon 06-21-2019 Basophils (Bld) [#/Vol] 0.03 {x10E9/L} See [...] QUALITATIVEon 06-09 HCG,SERUM QUALITATIVE Negative Normal Negative [facility] Comment on above: Performed By: #### H CGS #### [address] [address] Hematologyon 06-21-2019 INR Coag (PPP) [Relative time] [...] 82 mg/dL 74 - 99 [facility] Work Phone: Potassium [Moles/Vol] 4.1 mmol/L [...] time] 1.1 {INR} Normal 0.9 - 1.1 [facility] Comment on above: Performed By: #### P TINR #### [facility] [address] [place] [address] PT Coag (PPP) [Time] 12.3 s Normal 9.7 - 12.7 [facility] Comment on above: Performed By: #### P TINR #### [facility] [address] [place] [address] Vital Signs Date Time Vital Sign Value Performing Clinician Facility 02-26-2023 08:42-0400 Body temperature 97.6 [degF] PHYSICIAN NO [facility] 02-26-2023 08:42-0400 Diastolic blood pressure 90 mm[Hg] PHYSICIAN NO [facility] 02-26-2023 08:42-0400 Heart rate 89 /min PHYSICIAN NO [facility] 02-26-2023 08:42-0400 Respiratory rate 16 /min PHYSICIAN NO [facility] 02-26-2023 08:42-0400 SaO2% (BldA) [Mass fraction] 100 % PHYSICIAN NO [facility] 02-26-2023 08:42-0400 Systolic blood pressure 135 mm[Hg] PHYSICIAN NO [facility] 02-23-2023 09:26-0400 Body height 154.94 cm PHYSICIAN NO [facility] 02-23-2023 09:26-0400 Body weight 81.64 kg PHYSICIAN NO [facility] 10-07-2022 03:060400 Body weight 80.[address] RACHID GLEZ . [facility] Comment on above: Performed By: #### AFPMAT #### [facility] [address] [place] [address] Dr. Calin Marshall 07-17-2019 11:48-0500 BMI (Body Mass Index) 34.2 kg/m2 Vikas Jeremiah [facility] Work Phone: 07-17-2019 11:48-0500 Body Temperature 99.2 [degF] Vikas Jeremiah [facility] Work Phone: Comment on above: Method: Oral 07-17-2019 11:48-0500 Body weight 86.18 kg Vikas Jereimah [facility] Work Phone: 07-17-2019 11:48-0500 BP Diastolic 92 mm[Hg] Vikas Jeremiah [facility] Work Phone: 07-17-2019 11:48-0500 BP Systolic 150 mm[Hg] Vikas Jeremiah [facility] Work Phone: 07-17-2019 11:48-0500 BSA (Body Surface Area) 1.88 m2 Vikas Jeremiah [facility] Work Phone: 07-17-2019 11:48-0500 Height 158.75 cm Vikas Jeremiah [facility] Work Phone: 07-17-2019 11:48-0500 0 1 Vikas [...] 06-21-2019 11:01-0500 BP Systolic 138 mm[Hg] Vikas Garrido -[facility] Work Phone: Comment on above: Location: RUE; Position: Sitting 06-21-2019 11:01-0500 BSA (Body Surface Area) 1.85 m2 Vikas Garrido [facility] Work Phone: 06-21-2019 11:01-0500 Height 158.75 cm Vikas Garrido -[facility] Work Phone: 06-21-2019 11:01-0500 0 1 Vikas Garrido [facility] Work Phone: Comment on above: Pain Scale Encounters Encounter Date Encounter Type Care Provider Facility Start: 11-30-2023 End: 11-30-2023 Evaluation and management of inpatient JUDI Moreno [facility] Start: 11-30-2023 End: 11-30-2023 Evaluation and management of inpatient [facility] Start: 11-29-2023 End: 11-30-2023 ambulatory [facility] Start: 11-22-2023 End: 11-22-2023 ambulatory [facility] Start: 02-27-2023 End: 02-27-2023 ambulatory Celestina Warchol Facility:[facility] Start: 02-27-2023 End: 02-27-2023 ambulatory PHYSICIAN NO [facility] Work Phone: Start: 02-27-2023 End: 02-27-2023 Patient encounter procedure PHYSICIAN NO [facility]- Visit Work Phone: Start: 02-23-2023 End: 02-26-2023 Evaluation and management of inpatient Diana Nataprawira Facility:[facility] Start: 02-23-2023 End: 02-26-2023 Evaluation and management of inpatient PHYSICIAN NO [facility] Work Phone: Start: 01-31-2023 End: 01-31-2023 ambulatory PHYSICIAN JAMILA FAMILY Facility:[facility] Start: 01-31-2023 End: 01-31-2023 ambulatory DO Diana Sorenson Work Phone: [facility] Work Phone: Start: 01-31-2023 End: 01-31-2023 Departed Referred DO Diana Nataprawi Work Phone: [facility] [place] Work Phone: Start: 10-19-2022 End: 10-20-[address] RACHID GLEZ . Facility:[facility] Start: 10-05-2022 End: 10-06-[address] RACHID GLEZ . Facility:[facility] Start: 09-07-2022 Encounter for gynecological examination (general) (routine) without abnormal findings DR RACHID GLEZ . [facility] Start: 09-05-2022 End: 09-05-[address] RACHID [...] Start: 07-08-2022 End: 07-08-[address] KAROLYN HULL . Facility:[facility] Start: 11-08-2021 End: 11-09-[address] JAKE RODRIGUEZ Facility:[facility] Start: 07-17-2019 Patient encounter procedure Vikas Jeremiah [facility] Work Phone: Start: 06-21-2019 Patient encounter procedure Vikas Jeremiah [facility] Work Phone: Patient encounter status Mia Dillardbangernst [facility] Work Phone: Procedures Date Procedure Procedure Detail Performing Clinician Start: 02-23-2023 Antibody screen PHYSICI AN NO FAMILY Comment on above: Result Comment: PERF ORMED BY: [facility] [address] [place] [address] PATHOLOGIST PRISONER CLASSIFICATION INTERVIEWER FLORY JAIN M.D. Start: 02-23-2023 Urine culture PHYSICIAN NO FAMILY Start: 01-31-2023 Group B Streptococcus Culture PHYSICIAN NO FAMILY Start: 06-21-2019 Thromboplastin time partial plasma/whole blood Vikas Jeremiah Start: 06-21-2019 Follow-up visit Appendectomy Vikas Jeremiah Extraction of wisdom tooth R o[place] Jeremiah H/O: section S/P PHYSI LELE NO FAMILY Plan of Treatment Date Care Activity Detail Author Start: 02-26-2023 [facility] Start: 02-24-2023 Hospital admission [facility] Start: 01-31-2023 Following clinical pathway protocol [facility] Start: 01-31-2023 Group B Streptococcus Culture Group B Streptococcus Culture [facility] Patient Education Post- Di reynaldo Instructions ([facility]) [facility] Work Phone: Patient referral [facility] Work Phone: Immunizations Immunization Date Immunization Notes Care Provider Fa cility 02-24-2023 tetanus toxoid, redu ramila diphtheria toxoid, and acellular pertussis vaccine, adsorbed PHYSICIAN NO FAMILY [facility] Payers Date Payer Category Payer Unknown [id number] 1993 Unknown [id number] 2.16.84 [id number] 1993 Unknown [id number] 2.16.84 0.1.995702.3.579.2.593 1993 Unknown [id number] 2.16.84 0.1.743758.3.579.2.593 1993 Unknown [id number] 2.16.84 0.1.958606.3.579.2.593 1993 Unknown [id number] 2.16.84 0.1.236128.3.579.2.593 1993 Unknown [id number] 2.16.84 0.1.092961.3.579.2.593 1993 Unknown [id number] 2.16.84 0.1.948463.3.579.2.593 1993 Unknown [id number] 2.16.84 0.1.727018.3.579.2.593 1993 Unknown [id number] 2.16.8 40.1.253760.3.579.2.1286 1993 Unknown [id number] 2.16.8 40.1.520236.3.579.2.1285 1993 Unknown [id number] 2.16.8 40.1.457176.3.579.2.1286 1993 Unknown [id number] 2.16.8 40.1.196813.3.579.2.1286 1993 Unknown [id number] 2.16.8 40.1.844923.3.579.2.1286 1993 Unknown [id number] 2.16.8 40.1.094522.3.579.2.128 1993 Unknown [id number] 2.16.8 40.1.003754.3.579.2.1286 1993 Unknown [id number] 2.16.8 40.1.505834.3.579.2.1286 1959 Self-pay 1959 Unknown [id number] 1959 Unknown [id number] Unknown [id number] 2.16.84 0.1.065989.3.579.2.593 Unknown HCAP/HFA/FAP Active [id number] Unknown [id number] 2.16.8 40.1.707395.3.579.2.531 Unknown [id number] .16.8 40.1.017508.3.579.2.531 Unknown [id number] 2.16.8 40.1.663191.3.579.2.531 Social History Date Type Detail Facility Start: 1995 Sex Assigned At Female F [facility] Start: 02-23-2023 Tobacco smoking status NHIS Never smoked tobacco (finding) [facility] NEGATED: Highlighted row - - [facility] Work Phone: Goals Date Patient Goal Desired Activity /State Functional Status Date Assessment Result Facility 02-26-2023 Functional status Patient at [facility] Work Phone: NEGATED: Highlighted row Functional performance Functional status health issues are not documented Disease [facility] Work Phone: Mental Status Date Assessment Result Facility 02-26-2023 Cognitive function Cognitive Sta tus Patient at Baseline [facility] Work Phone: NEGATED: Highlighted row Cognitive function [Interpretation] Cognitive status health issues are not documented Disease [facility] Work Phone: Progress note 02-26-2023 Note Date & Type Note Facility 02-26-2023 Progress note Note Date/Time February 26, 2023 9:01am [facility] [address] [place] [address] ACID LEVELER Progress Note Signed Patient: Natalee Guerra MR#: [id number] : 1995 Acct:[id number] Age/Sex: 27 / F Adm Date: 3 Loc: 3S Room: [address] [place] [address] Type: ADM IN Attending Dr: Diana Sorenson [...] no incisional pain baby status: doing well [place] feeding status: exclusively breast feeding OB - [...] % (Auto) 78.0, Lymph % (Auto) 14.7, Wharton % (Auto) 6.6, Eos % (Auto) 0.3, Baso % (Auto) 0.4, Nucleat RBC Rel Count 0.0, Neut# (Auto) 12.2 H, Lymph # (Auto) 2.3, Wharton # (Auto) 1.0 H, Eos # (Auto) [...] signed by Mitra Degroot DO> 02/26/23 0901 [facility] Work Phone: Progress note 02-25-2023 Note Date & Type Note Facility 02-25-2023 Progress note Note Date/Time February 25, 2023 9:32am [facility] [address] [place] [address] ACID LEVELER Progress Note Signed Patient: Natalee Guerra MR#: [id number] : 1995 Acct:[id number] Age/Sex: 27 / F Adm Date: 3 Loc: Room: [address] [place] [address] Type: ADM IN Attending Dr: Diana Sorenson [...] % (Auto) 77.7, Lymph % (Auto) 15.8, Wharton % (Auto) 6.3, Eos % (Auto) 0.0, Baso % (Auto) 0.2, Nucleat RBC Rel Count 0.0, Neut# (Auto) 15.1 H, Lymph # (Auto) 3.1, Wharton # (Auto) 1.2 H, Eos # (Auto) [...] signed by Mitra Degroot DO> 02/25/23 0932 [facility] Work Phone: Progress note 02-24-2023 Note Date & Type Note Facility 02-24-2023 Progress note Note Date/Time February 24, 2023 11:53am [facility] [address] [place], [place] [id number] ACID LEVELER Progress Note Signed Patient: Natalee Guerra MR#: [id number] : 1995 Acct:[id number] Age/Sex: 27 / F Adm Date: 3 Loc: Room: [address] [place] [address] Type: ADM IN Attending Dr: Diana Sorenson [...] eaten since but has been drinking fluids.) baby status: doing well and nursing well [place] feeding status: exclusively breast feeding OB - [...] % (Auto) 70.6, Lymph % (Auto) 23.1, Wharton % (Auto) 5.5, Eos % (Auto) 0.4, Baso % (Auto) 0.4, Nucleat RBC Rel Count 0.0, Neut# (Auto) 9.0 H, Lymph # (Auto) 2.9, Wharton # (Auto) 0.7, Eos # (Auto) 0.0, Baso # (Auto) 0.0 02/23/23 09:48: RPR w/Rflx to Titer Non reactive 02/23/23 09:34: Urine Opiates Screen Negative, Ur Barbiturates Screen Negative, Ur Phencyclidine Scrn Negative, Ur Amphetamines Screen Negative, U Benzodiazepines Scrn Negative, Urine Cocaine Screen Negative 02/23/23 09:34: Urine Color Yellow, Urine Appearance Cloudy A, Urine pH 7.0, Ur Specific [place] 1.016, Urine Protein 30 H, Urine Glucose [...] <Electronically signed by CHRISTIANO Kendall> 02/24/23 1153 [facility] Work Phone: Procedure note 02-23-2023 Note Date & Type Note Facility 02-23-2023 Procedure note [facility] Evaluation note Note Date & Type Note Facility Evaluation note No assessment information availa ble [facility] Work Phone: Evaluation note Note Date & Type Note Facility Evaluation note Diagnosis Onset Date delivery delivered acute [facility] Work Phone: Instructions Note Date & Type Note Facility Instructions Name Instructions not documented [facility] Work Phone: Summary Purpose Family History No [...] 4. 5. Surgeon: Vikas Garrido MD Resident/Fellow/Other Cleaning Maid: dearth Estimated Blood Loss (mL): minimal Specimen: yes. [...] section and content) DATE CREATED AUTHOR 07/02/2019 [facility] DATE CREATED AUTHOR AUTHOR'S ORGANIZ ATION 07/17/2019 [employer] DATE CREATED AUTHOR AUTHOR'S ORGANIZ ATION 06/16/2020 [facility] DATE CREATED AUTHOR AUTHOR'S ORGANIZ ATION 08/10/2021 [facility] dical Specialist DATE CREATED AUTHOR AUTHOR'S ORGANIZ ATION 10/24/2022 [facility] DATE CREATED AUTHOR AUTHOR'S ORGANIZ ATION 02/07/2023 [facility] DATE CREATED AUTHOR AUTHOR'S ORGANIZ ATION 03/07/2023 [facility] DATE CREATED AUTHOR AUTHOR'S ORGANIZ ATION 11/30/2023 [facility] DATE CREATED AUTHOR AUTHOR'S ORGANIZ ATION 12/06/2023 [facility] Care Teams (unrecognized sec tion and content) Team Status: Inactive Member Role Status Dates Diana Sorenson DO Attending Provider Active Team Status: Active Member Role Status Dates MUNDO Jennings Primary Care Provider Active Team Status: Inactive Member Role Status Dates Diana Sorenson , DO Attending Provider Active PHYSICIAN NO FAMILY Primary Care Provider Active Team Status: Inactive Member Role Status Dates Diana Sorenson , DO Admit Provider, Attending Provid er Active Celestina Ely , BENEFIT DIRECTOR-C Primary Care Provider Active Team Status: Inactive Member Role Status Dates Celestina Ely NP-C Primary Care Provider Active Lilia Huber MD [...] BE BASED ON THE PRIMARY CLINICAL RECORDS. [employer] provides no warranty or guarantee of the accuracy or completeness of information in this document.
[2023-12-08 10:29] LABS: Albumin Globulin Ratio 0.8; Alkaline Phosphatase 694 U/L (46-116); Anion Gap 14.7; Bilirubin Total 2.8 mg/dL (0.2-1.0); Calcium 10.5 mg/dL (8.5-10.1); Carbon Dioxide 22.3 mmol/L (21.0-32.0); Chloride 98 mmol/L (98-107); Estimated GFR (African America >60 (>=60); Estimated GFR (Non-African Ame >60 (>=60); Globulin 4.9 g/dL; Glucose 91 mg/dL (74-106); Sodium 131 mmol/L (136-145); Total Protein 8.9 g/dL (6.4-8.2)
[2023-12-08 13:28] LABS: Alanine Aminotransferase 1293 U/L (14-59); Aspartate Amino Transferase 675 U/L (15-37)
== END 2023-12-08 08:43 | disposition home or self-care (01) ==
LOC: LAB 08:44
PROVIDERS: PCP Nurse Practitioner Family
DX: E87.20 Acidosis, unspecified (principal); R74.01 Elevation of levels of liver transaminase levels; E80.6 Other disorders of bilirubin metabolism
CPT/HCPCS: 36415; 80053

== ENCOUNTER 2023-12-12 15:56 | Emergency (ER) | payer BC, SELFPAY ==
[2023-12-12] VITALS (10 sets, daily range): BP systolic 100–130; BP diastolic 53–78; PULSE 73–123; TEMP 37.2–38.6; O2SAT 94–98; BMI 32.1
--- OUTSIDE RECORDS SUMMARY | 2023-12-12 16:38 | XMS_ITS | CCD ---
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 Role Phone Jeremiah, Vikas Unavailable Unavailable [...] DR RASHID Attending Unavailabl e MISC, DR LEAINE Primary Care Unavailable KARASIK ., DR RASHID [...] Unavailable JENNIFER, DR JOSEPH Attending Unavailable AICHHOLZ, SATELLITE TV INSTALLER MIA Primary Care Unavailable KARASIK ., DR RASHID Admitting Unavailabl e KARASIK ., DR RASHID Attending Unavailabl e REQUEST, NONE LISTED Primary Care Unavaila ble KARASIK ., DR RASHID Consulting Unavailabl e KARASIK ., DR RASHID Admitting Unavailabl e NEWTON ., DR RASHID Attending Unavailabl e [facility], DR ELAINE Primary Care Unavailable NEWTON ., DR RASHID Consulting Unavailabl e BRAINARD, DR CALDERON Young Consulting Unavailable Nataprawira, DO Diana Attending Provider NO FAMILY, PHYSICIAN Primary Care Provider Unava ilable Nataprawira, DO Diana Admit Provider [phone] MUNDO Ely Primary Care Provider MD Lilia Huber Attending Provider [phone] NO FAMILY, PHYSICIAN Primary Care Unavailable Nataprawira, [...] NO PCP, NO PCP Primary Care Unavailable PHILL HUI Ivan Referring Unavailable NO PCP, NO PCP Primary Care Unavailable HUI POLLOCK Admitting Unavailable GRILLISHUI Attending Unavailable GRILLIS HUI E Referring Unavailable NO PCP, NO PCP Primary Care Unavailable JUDI HUMPHREYS Attending Unavailable NO PCP, NO PCP Primary Care Unavailable Allergies Allergy Classification Reported Allergen(s) Allergy Type Date of Onset Reaction(s) Facility Penicillins (antibiotic) (2 sources) Amoxicillin; Translations: [AMOXICILLIN] Drug Allergy 10-12-2015 [facility] Repository (10 sources) Amoxicillin; Translations: [Amoxicillin] Drug Allergy 10-12-2015 [facility] Repository Medications Current Medications Medication Drug [...] Q6H 60 February 23, 2023 12:00am Pnv,Calcium 87-Tdbc-Oiaom Acid (M-Liza Plus) 27 mg iron- 1 mg tablet (2 sources) Start: 02-23-2023 Pnv,Calcium 62-Bbld-Lvxjo Acid (M-Liza Plus) 27 mg iron- 1 [...] 07-14-2022 Episodic Other aftercare (1 source) Other senior living (current) drug therapy; Translations: [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] Onset: 07-12-2022 Episodic Other [...] Name Value Interpretation Reference Range Facil ity HCG ( test) Ql (U)o n 11-30-2023 Beta HCG ( test) Ql (U) Negative Normal NEG [facility] Comment on above: Performed By: #### 2 106-3 #### [facility] ([id number]) [address] [place] [address], [place] [address] Surgical Pathologyon 024 Surgical Pathology Normal [facility] Comment on above: Result Comment: [facility] [address] [place] [address] Surgical Pathology Consultation Patient Name:NATALEE GUERRA:1995 (Age: 28)Gender:FTaken:4Reported:12/05/2023hysician(s):Lelo Pollock D.O. ([phone])Copy To: Rec. #:[id number]: #[id number] Final Pathologic Diagnosis Gallbladder, cholecystectomy: Cholesterolosis. Cholelithiasis. Benign lymph node. Report Electronically Signed Out nxk/12/05/2023Paolo Dc MD [facility] [place] [address], License number: [id number]. Clinical History Cholelithiasis, chronic cholecystitis. Gross Description [...] from 0.1 to 0.3 cm in thickness. Aws Architect sections of the gallbladder are submitted in cassette B. (2, ss, [id number], A???B, m2) [facility]/12/01/2023SSI Specimen(s) Received Gallbladder Fee Codes(s): 1; 96943 COMPLETE BLOOD COUNTon 11-28 Erythrocyte distribution width (RBC) [Ratio] 13.0 % Normal 11.5-15.0 [facility] Comment on above: Performed By: #### Karina MARTELL CMP, 3040-3 #### [facility] ([id number]) [address], [address] [place] [address] Hematocrit (Bld) [Volume fraction] 39.5 % Normal 35-47 [facility] Comment on above: Performed By: #### Karina MARTELL CMP, 3040-3 #### [facility] ([id number]) [address] [address] [place] [address] Hemoglobin (Bld) [Mass/Vol] 13.2 g/dL Normal 11.7-15.5 [facility] Comment on above: Performed By: #### Karina MARTELL CMP, 3040-3 #### [facility] ([id number]) [address], [address] [place] [address] MCH (RBC) [Entitic mass] 29.7 pg Normal 27-34 [facility] Comment on above: Performed By: #### Karina MARTELL CMP, 3040-3 #### [facility] ([id number]) [address] [place] [address] MCHC (RBC) [Mass/Vol] 33.5 g/dL Normal 32-36 [facility] Comment on above: Performed By: #### Karina MARTELL CMP, 3040-3 #### [facility] ([id number]) [address], [address] [place] [address] MCV (RBC) [Entitic vol] 89 fL Normal 80-100 [facility] Comment on above: Performed By: #### Karina BC, CMP, 3039-3 #### [facility] ([id number]) [address], [facility] [address] [place] [address] Platelet mean volume (Bld) [Entitic vol] 8.5 fL Normal 7-12 [facility] Comment on above: Performed By: #### Karina BC CMP, 3039-3 #### [facility] ([id number]) [address], [facility] [address] [place] [address] Platelets (Bld) [#/Vol] 346 10*3/uL Normal 150-450 [facility] Comment on above: Performed By: #### Karina BC, CMP, 3039-3 #### [facility] ([id number]) [address] [address] [place] [address] RBC COUNT 4.44 X10E12/L Normal 3.80-5.20 [facility] Comment on above: Performed By: #### Karina MARTELL CMP, 3039-3 #### [facility] ([id number]) [address], [facility] [address] [place] [address] WBC (Bld) [#/Vol] 11.5 10*3/uL High 4.0-11.0 [facility] Comment on above: Performed By: #### Karina BC, CMP, 0-3 #### [facility] ([id number]) [address], [address] [place] [address] COMPREHENSIVE METABOLIC PANE Jose 11-29-2023 Albumin [Mass/Vol] 4.6 g/dL Normal 3.2-5.3 [facility] Comment on above: Performed By: #### Karina BC, CMP, 3040-3 #### [facility] ([id number]) [address], [address] [place] [address] ALP [Catalytic activity/Vol] 176 U/L High 39-130 [facility] Comment on above: Performed By: #### Karina BC, CMP, 3039-3 #### [facility] ([id number]) [address], [address] [place] [address] ALT [Catalytic activity/Vol] 487 U/L High 0-31 [facility] Comment on above: Performed By: #### Karina MARTELL, CMP, 3039-3 #### [facility] ([id number]) [address], [address] [place] [address] Anion gap [Moles/Vol] 17 mmol/L High 5-15 [facility] Comment on above: Performed By: #### Karina MARTELL, CMP, 3039-3 #### [facility] ([id number]) [address], [address] [place] [address] AST [Catalytic activity/Vol] 172 U/L High 0-41 [facility] Comment on above: Performed By: #### Karina MARTELL, CMP, 0-3 #### [facility] ([id number]) [address], [address] [place] [address] Bilirubin [Mass/Vol] 3.8 mg/dL High 0.3-1.2 [facility] Comment on above: Performed By: #### Karina MARTELL, CMP, 0-3 #### [facility] ([id number]) [address], [address] [place] [address] Calcium [Mass/Vol] 9.6 mg/dL Normal 8.5-10.5 [facility] Comment on above: Performed By: #### Karina BC, CMP, 0-3 #### [facility] ([id number]) [address], [address] [place] [address] Chloride [Moles/Vol] 99 mmol/L Normal 98-109 [facility] Comment on above: Performed By: #### Karina MARTELL CMP, 3040-3 #### [facility] ([id number]) [address], [facility] [address] [place] [address] CO2 [Moles/Vol] 18 mmol/L Low 22-32 [facility] Comment on above: Performed By: #### Karina MARTELL [facility], 3039-3 #### [facility] ([id number]) [address] [address] [place] [address] Creatinine [Mass/Vol] 0.80 mg/dL Normal 0.40-1.00 [facility] Comment on above: Result Comment: METH OD TRACEABLE TO IDMS STANDARD Performed By: #### Karina MARTELL CMP, 3039-3 #### [facility] ([id number]) [address], [facility] [address] [place] [address] eGFR (CKD-EPI) NON-RACE DEPENDENT >90 Normal >59 [facility] Comment on above: Result Comment: Reported eGFR is based on the CKD-EPI 2020 equation that does not use a race coefficient. Performed By: #### Karina MARTELL CMP, 0-3 #### [facility] ([id number]) [address] [address] [place] [address] Glucose [Mass/Vol] 70 mg/dL Normal 65-99 [facility] Comment on above: Performed By: #### Karina MARTELL CMP, 0-3 #### [facility] ([id number]) [address] [address] [place] [address] Potassium [Moles/Vol] 4.1 mmol/L Normal 3.5-5.0 [facility] Comment on above: Performed By: #### Karina MARTELL CMP, 0-3 #### [facility] ([id number]) [address] [place] [address] Protein [Mass/Vol] 7.8 g/dL Normal 6.0-8.0 [facility] Comment on above: Performed By: #### Karina MARTELL CMP, 3040-3 #### [facility] ([id number]) [address] [place] [address] Sodium [Moles/Vol] 134 mmol/L Normal 134-146 [facility] Comment on above: Performed By: #### Karina MARTELL CMP, 3040-3 #### [facility] ([id number]) [address] [place] [address] Urea nitrogen [Mass/Vol] 12 mg/dL Normal 5-23 [facility] Comment on above: Performed By: #### Karina MARTELL CMP, 3040-3 #### [facility] ([id number]) [address], [address] [place] [address] LIPASEon 11-29-2023 Lipase [Catalytic activity/Vol] 30 U/L Normal 11-82 [facility] Comment on above: Performed By: #### Karina MARTELL CMP, 3040-3 #### [facility] ([id number]) [address] [place] [address] Alanine aminotransferase [En zymatic activity/volume] in Serum or PlasmaOrdered By: Mitra Degroot on 02-25-2023 ALT [Catalytic activity/Vol] 12 U/L 7-52 [facility] Albumin [Mass/volume] in Ser um or Plasma by Bromocresol green (BCG) dye binding methoOrdered By: Mitra eDgroot on 02-25-2023 Albumin BCG dye [Mass/Vol] 3.4 g/dL 3.5-5.7 [facility] Alkaline phosphatase [Enzyma tic activity/volume] in Serum or PlasmaOrdered By: Mitra Degroot on 02-25-2023 ALP [Catalytic activity/Vol] 107 U/L 34-104 [facility] Aspartate aminotransferase [ Enzymatic activity/volume] in Serum or PlasmaOrdered By: Mitra Degroot on 02-25-2023 AST [Catalytic activity/Vol] 11 U/L 13-39 [facility] Basophils Auto (Bld) [#/Vol] Ordered By: Mitra Degroot on 02-25-2023 Basophils (Bld) [#/Vol] 0.1 10*3/uL 0.0-0.2 [facility] Basophils/100 WBC Auto (Bld) Ordered By: Mitra Degroot on 02-25-2023 Basophils/100 WBC (Bld) 0.4 % . [facility] Bilirubin.total [Mass/volume ] in Serum or PlasmaOrdered By: Mitra Degroot on 02-25-2023 Bilirubin [Mass/Vol] 0.3 mg/dL 0.3-1.0 [facility] Calcium [Mass/volume] in Ser um or PlasmaOrdered By: Mitra Degroot on 02-25-2023 Calcium [Mass/Vol] 11.3 mg/dL 8.6-10.3 [facility] Carbon dioxide, total [Moles /volume] in Serum or PlasmaOrdered By: Mitra Degroot on 02-25-2023 CO2 [Moles/Vol] 26.0 mmol/L 21.0-31.0 [facility] Chloride [Moles/volume] in S ophelia or PlasmaOrdered By: Mitra Degroot on 02-25-2023 Chloride [Moles/Vol] 106 mmol/L 98-107 [facility] Complete Blood Count Auto Di ffon 02-25-2023 Basophils (Bld) [#/Vol] 0.1 10*3/uL Normal 0.0-0.2 [facility] Comment on above: Result Comment: PERF ORMED BY: [facility] [address] [place] [address] PATHOLOGIST MANAGER APPLICATION FLORY JAIN M.D. Performed By: #### C MP, CBC #### [facility] [address] Basophils/100 WBC (Bld) 0.4 % Normal . [facility] Comment on above: Performed By: #### C MP, CBC #### [facility] [address] Eosinophils (Bld) [#/Vol] 0.0 10*3/uL Normal 0.0-0.45 [facility] Comment on above: Performed By: #### C MP, CBC #### [facility] [address] Eosinophils/100 WBC (Bld) 0.3 % Normal . [facility] Comment on above: Performed By: #### C MP, CBC #### [address] Erythrocyte distribution width (RBC) [Ratio] 14.1 % Normal 11.9-15.3 [facility] Comment on above: Performed By: #### C MP, CBC #### [address] Hematocrit (Bld) [Volume fraction] 34.4 % Normal 34.0-46.4 [facility] Comment on above: Performed By: #### C MP, CBC #### [address] Hemoglobin (Bld) [Mass/Vol] 11.5 g/dL Low 11.8-15.4 [facility] Comment on above: Performed By: #### C MP, CBC #### [address] Lymphocytes (Bld) [#/Vol] 2.3 10*3/uL Normal 1.00-4.8 [facility] Comment on above: Performed By: #### C MP, CBC #### [place] [address] [place] Lymphocytes/100 WBC (Bld) 14.7 % Normal . [facility] Comment on above: Performed By: #### C MP, CBC #### [address] MCH (RBC) [Entitic mass] 29.9 pg Normal 24.7-34.3 [facility] Comment on above: Performed By: #### C MP, CBC #### [facility] [address] MCV (RBC) [Entitic vol] 90.1 fL Normal 80-100 [facility] Comment on above: Performed By: #### C MP, CBC #### [facility] [address] Mean Corpuscular HGB Conc 33.2 g/dL Normal 32.0-35.0 [facility] Comment on above: Performed By: #### C MP, CBC #### [facility] [address] Monocytes (Bld) [#/Vol] 1.0 10*3/uL High 0.0-0.8 [facility] Comment on above: Performed By: #### C MP, CBC #### [address] Monocytes/100 WBC (Bld) 6.6 % Normal . [facility] Comment on above: Performed By: #### C MP, CBC #### [address] Neutrophils (Bld) [#/Vol] 12.2 10*3/uL High 1.8-7.7 [facility] Comment on above: Performed By: #### C MP, CBC #### [address] Neutrophils/100 WBC (Bld) 78.0 % Normal . [facility] Comment on above: Performed By: #### C MP, CBC #### [address] NRBC% 0.0 /100{WBC} Normal 0-0.5 [facility] Comment on above: Performed By: #### C MP, CBC #### [address] Platelet mean volume (Bld) [Entitic vol] 7.8 fL Normal 6.3-10.7 [facility] Comment on above: Performed By: #### C MP, CBC #### [place] [id number] [place] Platelets (Bld) [#/Vol] 348 10*3/uL Normal 150-450 [facility] Comment on above: Performed By: #### C MP, CBC #### [address] RBC (Bld) [#/Vol] 3.82 10*6/uL Normal 3.60-5.00 [facility] Comment on above: Performed By: #### C MP, CBC #### [address] WBC (Bld) [#/Vol] 15.7 10*3/uL High 3.8-11.6 [facility] Comment on above: Performed By: #### C MP, CBC #### [address] Comprehensive Metabolic Pane jose 02-25-2023 Albumin [Mass/Vol] 3.4 g/dL Low 3.5-5.7 [facility] Comment on above: Performed By: #### C MP, CBC #### [address] Albumin/Globulin [Mass ratio] 1.0 {ratio} Normal [facility] Comment on above: Performed By: #### C MP, CBC #### [address] ALP [Catalytic activity/Vol] 107 U/L High 34-104 [facility] Comment on above: Performed By: #### C MP, CBC #### [address] ALT [Catalytic activity/Vol] 12 U/L Normal 7-52 [facility] Comment on above: Performed By: #### C MP, CBC #### [address] Anion gap [Moles/Vol] 9.5 mmol/L Normal 6.0-15.0 [facility] Comment on above: Performed By: #### C MP, CBC #### [address] [place] [address] [place] AST [Catalytic activity/Vol] 11 U/L Low 13-39 [facility] Comment on above: Performed By: #### C MP, CBC #### [facility] [address] Bilirubin [Mass/Vol] 0.3 mg/dL Normal 0.3-1.0 [facility] Comment on above: Performed By: #### C MP, CBC #### [facility] [address] Calcium [Mass/Vol] 11.3 mg/dL High 8.6-10.3 [facility] Comment on above: Performed By: #### C MP, CBC #### [facility] [address] Chloride [Moles/Vol] 106 mmol/L Normal 98-107 [facility] Comment on above: Performed By: #### C MP, CBC #### [facility] [address] CO2 [Moles/Vol] 26.0 mmol/L Normal 21.0-31.0 [facility] Comment on above: Performed By: #### C MP, CBC #### [facility] [address] Creatinine [Mass/Vol] 0.99 mg/dL Normal 0.60-1.20 [facility] Comment on above: Performed By: #### C MP, CBC #### [place] [address] [place] Creatinine Clr Calc Pharmacy 81.19 Normal [facility] Comment on above: Result Comment: PERF ORMED BY: [place] [address] PATHOLOGIST MANAGER APPLICATION FLORY JAIN M.D. Performed By: #### C MP, CBC #### [place] [address] [place] GFR/1.73 sq M.predicted MDRD (S/P/Bld) [Vol rate/Area] mL/min/{1.73_m2} Normal [facility] Comment on above: Performed By: #### C MP, CBC #### [facility] [address] [place] [address] [place] Globulin (S) [Mass/Vol] 3.3 g/dL Normal [facility] Comment on above: Performed By: #### C MP, CBC #### [facility] [address] [place] [id number] [place] Glucose [Mass/Vol] 73 mg/dL Normal 70-100 [facility] Comment on above: Result Comment: [facility] Glucose Reference Range is dependent on time and content of last meal. Glucose of more than 200 mg/dL in a nonstressed, ambulatory subject supports the diagnosis of Diabetes Mellitus. ADA recommended reference range Performed By: #### C MP, CBC #### [facility] [address] Potassium [Moles/Vol] 4.5 mmol/L Normal 3.5-5.1 [facility] Comment on above: Performed By: #### C MP, CBC #### [facility] [address] [place] [address] [place] Protein [Mass/Vol] 6.7 g/dL Normal 6.4-8.9 [facility] Comment on above: Performed By: #### C MP, CBC #### [facility] [address] [place] [address] [place] Sodium [Moles/Vol] 137 mmol/L Normal 136-145 [facility] Comment on above: Performed By: #### C MP, CBC #### [facility] [address] [place] [address] [place] Urea nitrogen [Mass/Vol] 12 mg/dL Normal 7-25 [facility] Comment on above: Performed By: #### C MP, CBC #### [facility] [address] [place] [address] [place] Creatinine [Mass/volume] in Serum or PlasmaOrdered By: Mitra Degroot on 02-25-2023 Creatinine [Mass/Vol] 0.99 mg/dL 0.60-1.20 [facility] Eosinophils Auto (Bld) [#/Vo l]Ordered By: Mitra Degroot on 02-25-2023 Eosinophils (Bld) [#/Vol] 0.0 10*3/uL 0.0-0.45 [facility] Eosinophils/100 WBC Auto (Bl d)Ordered By: Mitra Degroot on 02-25-2023 Eosinophils/100 WBC (Bld) 0.3 % . [facility] Erythrocyte distribution wid th Auto (RBC) [Ratio]Ordered By: Mitra Degroot on 02-25-2023 Erythrocyte distribution width (RBC) [Ratio] 14.1 % 11.9-15.3 [facility] Globulin Calc (S) [Mass/Vol] Ordered By: Mitra Degroot on 02-25-2023 Globulin (S) [Mass/Vol] 3.3 g/dL [facility] Glucose [Mass/volume] in Ser um or PlasmaOrdered By: Mitra Degroot on 02-25-2023 Glucose [Mass/Vol] 73 mg/dL 70-100 [facility] Comment on above: ADA recommended refe rence rangeRandom Glucose Reference Range is dependent on time and content of last meal. Glucose of more than 200 mg/dL in a nonstressed, ambulatory subject supports the diagnosis of Diabetes Mellitus. Hematocrit Auto (Bld) [Volum e fraction]Ordered By: Mitra Degroot on 02-25-2023 Hematocrit (Bld) [Volume fraction] 34.4 % 34.0-46.4 [facility] Hemoglobin [Mass/volume] in BloodOrdered By: Mitra Degroot on 02-25-2023 Hemoglobin (Bld) [Mass/Vol] 11.5 g/dL 11.8-15.4 [facility] Leukocytes [#/volume] correc rojas for nucleated erythrocytes in Blood by Automated counOrdered By: Mitra Degroot on 02-25-2023 WBC corrected for nucl RBC Auto (Bld) [#/Vol] 15.7 10*3/uL 3.8-11.6 [facility] Lymphocytes Auto (Bld) [#/Vo l]Ordered By: Mitra Degroot on 02-25-2023 Lymphocytes (Bld) [#/Vol] 2.3 10*3/uL 1.00-4.8 [facility] Lymphocytes/100 WBC Auto (Bl d)Ordered By: Mitra Degroot on 02-25-2023 Lymphocytes/100 WBC (Bld) 14.7 % . [facility] MCH Auto (RBC) [Entitic mass ]Ordered By: Mitra Degroot on 02-25-2023 MCH (RBC) [Entitic mass] 29.9 pg 24.7-34.3 [facility] MCHC Auto (RBC) [Mass/Vol]Or dered By: Mitra Degroot on 02-25-2023 MCHC (RBC) [Mass/Vol] 33.2 g/dL 32.0-35.0 [facility] MCV Auto (RBC) [Entitic vol] Ordered By: Mitra Degroot on 02-25-2023 MCV (RBC) [Entitic vol] 90.1 fL 80-100 [facility] Monocytes Auto (Bld) [#/Vol] Ordered By: Mitra Degroot on 02-25-2023 Monocytes (Bld) [#/Vol] 1.0 10*3/uL 0.0-0.8 [facility] Monocytes/100 WBC Auto (Bld) Ordered By: Mitra Degroot on 02-25-2023 Monocytes/100 WBC (Bld) 6.6 % . [facility] Neutrophils Auto (Bld) [#/Vo l]Ordered By: Mitra Degroot on 02-25-2023 Neutrophils (Bld) [#/Vol] 12.2 10*3/uL 1.8-7.7 [facility] Neutrophils/100 WBC Auto (Bl d)Ordered By: Mitra Degroot on 02-25-2023 Neutrophils/100 WBC (Bld) 78.0 % . [facility] No Panel InformationOrdered By: Mitra Degroot on 02-25-2023 Estimated GFR (CKD-EPI) > 60.0 mL/Min [facility] Creatinine Clearance (Chem 81.19 [facility] Nucleated erythrocytes [Pres ence] in Blood by Automated countOrdered By: Mitra Degroot on 02-25-2023 Nucleated RBC Auto Ql (Bld) 0.0 /100{WBC} 0-0.5 [facility] Platelet mean volume Auto (B ld) [Entitic vol]Ordered By: Mitra Degroot on 02-25-2023 Platelet mean volume (Bld) [Entitic vol] 7.8 fL 6.3-10.7 [facility] Platelets Auto (Bld) [#/Vol] Ordered By: Mitra Degroot on 02-25-2023 Platelets (Bld) [#/Vol] 348 10*3/uL 150-450 [facility] Potassium [Moles/volume] in Serum or PlasmaOrdered By: Mitra Degroot on 02-25-2023 Potassium [Moles/Vol] 4.5 mmol/L 3.5-5.1 [facility] Protein [Mass/volume] in Ser um or PlasmaOrdered By: Mitra Degroot on 02-25-2023 Protein [Mass/Vol] 6.7 g/dL 6.4-8.9 [facility] RBC Auto (Bld) [#/Vol]Ordere d By: Mitra Degroot on 02-25-2023 RBC (Bld) [#/Vol] 3.82 10*6/uL 3.60-5.00 [facility] Serum or plasma albumin/glob ulin mass ratioOrdered By: Mitra Degroot on 02-25-2023 Albumin/Globulin [Mass ratio] 1.0 {ratio} [facility] Serum or plasma anion gap de terminationOrdered By: Mitra Degroot on 02-25-2023 Anion gap [Moles/Vol] 9.5 mmol/L 6.0-15.0 [facility] Sodium [Moles/volume] in Ser um or PlasmaOrdered By: Mitra Degroot on 02-25-2023 Sodium [Moles/Vol] 137 mmol/L 136-145 [facility] Urea nitrogen [Mass/volume] in Serum or PlasmaOrdered By: Mitra Degroot on 02-25-2023 Urea nitrogen [Mass/Vol] 12 mg/dL 7-25 [facility] WBC Auto (Bld) [#/Vol]Ordere d By: Mitra Degroot on 02-25-2023 WBC (Bld) [#/Vol] 15.7 10*3/uL 3.8-11.6 [facility] Complete Blood Count Auto Di ffon 02-24-2023 Basophils (Bld) [#/Vol] 0.0 10*3/uL Normal 0.0-0.2 [facility] Comment on above: Result Comment: PERF ORMED BY: [facility] [place] [address] PATHOLOGIST MANAGER APPLICATION FLORY JAIN M.D. Performed By: #### R FL W RFX #### [facility] , Basophils/100 WBC (Bld) 0.2 % Normal . [facility] Comment on above: Performed By: #### R FL W RFX #### [facility] , Eosinophils (Bld) [#/Vol] 0.0 10*3/uL Normal 0.0-0.45 [facility] Comment on above: Performed By: #### R FL W RFX #### [facility] , Eosinophils/100 WBC (Bld) 0.0 % Normal . [facility] Comment on above: Performed By: #### R FL W RFX #### [facility] , Erythrocyte distribution width (RBC) [Ratio] 13.8 % Normal 11.9-15.3 [facility] Comment on above: Performed By: #### R FL W RFX #### [facility] , Hematocrit (Bld) [Volume fraction] 28.8 % Low 34.0-46.4 [facility] Comment on above: Performed By: #### R FL W RFX #### [facility] , Hemoglobin (Bld) [Mass/Vol] 9.9 g/dL Low 11.8-15.4 [facility] Comment on above: Performed By: #### R FL W RFX #### [facility] , Lymphocytes (Bld) [#/Vol] 3.1 10*3/uL Normal 1.00-4.8 [facility] Comment on above: Performed By: #### R FL W RFX #### [facility] , Lymphocytes/100 WBC (Bld) 15.8 % Normal . [facility] Comment on above: Performed By: #### R FL W RFX #### [facility] , MCH (RBC) [Entitic mass] 30.5 pg Normal 24.7-34.3 [facility] Comment on above: Performed By: #### R FL W RFX #### [facility] , MCV (RBC) [Entitic vol] 88.7 fL Normal 80-100 [facility] Comment on above: Performed By: #### R FL W RFX #### [facility] , Mean Corpuscular HGB Conc 34.4 g/dL Normal 32.0-35.0 [facility] Comment on above: Performed By: #### R FL W RFX #### [facility] , Monocytes (Bld) [#/Vol] 1.2 10*3/uL High 0.0-0.8 [facility] Comment on above: Performed By: #### R FL W RFX #### [facility] , Monocytes/100 WBC (Bld) 6.3 % Normal . [facility] Comment on above: Performed By: #### R FL W RFX #### [facility] , Neutrophils (Bld) [#/Vol] 15.1 10*3/uL High 1.8-7.7 [facility] Comment on above: Performed By: #### R FL W RFX #### [facility] , Neutrophils/100 WBC (Bld) 77.7 % Normal . [facility] Comment on above: Performed By: #### R FL W RFX #### [facility] , NRBC% 0.0 /100{WBC} Normal 0-0.5 [facility] Comment on above: Performed By: #### R FL W RFX #### [facility] , Platelet mean volume (Bld) [Entitic vol] 8.1 fL Normal 6.3-10.7 [facility] Comment on above: Performed By: #### R FL W RFX #### [facility] , Platelets (Bld) [#/Vol] 286 10*3/uL Normal 150-450 [facility] Comment on above: Performed By: #### R FL W RFX #### [facility] , RBC (Bld) [#/Vol] 3.24 10*6/uL Low 3.60-5.00 [facility] Comment on above: Performed By: #### R FL W RFX #### [facility] , WBC (Bld) [#/Vol] 19.4 10*3/uL High 3.8-11.6 [facility] Comment on above: Performed By: #### R FL W RFX #### [facility] , ABO/RH Typeon 02-23-2023 ABO and Rh group Nom (Bld) Blood group A Rh(D) positive Normal [facility] Comment on above: Result Comment: PERF ORMED BY: [facility] [address] [place] [address] PATHOLOGIST MANAGER APPLICATION FLORY JAIN M.D. ABO/Rh Retypeon 02-23-2023 ABO/RH Recheck Result Positive Normal [facility] Comment on above: Result Comment: PERF ORMED BY: [facility] [address] [place] [address] PATHOLOGIST MANAGER APPLICATION FLORY JAIN M.D. Amphetamine Screen Ql (U)Ord ered By: DIANA SORENSON on 02-23-2023 Amphetamines Ql (U) Negative Negative [facility] Automated erythrocytes count in urine sediment (number/area)Ordered By: DIANA SORENSON on 02-23-2023 RBC Auto (Urine sed) [#/Area] 3-4 [HPF] 0-4 [facility] Automated leukocytes count i n urine sediment (number/area)Ordered By: DIANA SORENSON on 02-23-2023 WBC Auto (Urine sed) [#/Area] 10-19 [HPF] 0-4 [facility] Automated urine hyaline cast s count (number/volume)Ordered By: DIANA SORENSON on 02-23-2023 Hyaline casts Auto (U) [#/Vol] None seen [LPF] 0-1 [facility] Barbiturates [Presence] in U rine by Screen methodOrdered By: DIANA SORENSON on 02-23-2023 Barbiturates Screen Ql (U) Negative Negative [facility] Benzodiazepines Screen Ql (U )Ordered By: DIANA SORENSON on 02-23-2023 Benzodiazepines Ql (U) Negative Negative [facility] Benzoylecgonine [Presence] i n Urine by Screen methodOrdered By: DIANA SORENSON on 02-23-2023 Benzoylecgonine Screen Ql (U) Negative Negative [facility] Bilirubin Test strip Ql (U)O rdered By: DIANA SORENSON on 02-23-2023 Bilirubin Ql (U) Negative Negative [facility] Casts typing in urine sedime nt by light microscopyOrdered By: DIANA SORENSON on 02-23-2023 Casts LM Nom (Urine sed) None seen [LPF] None Seen [facility] Color Auto (U)Ordered By: GILMAR SORENSON on 02-23-2023 Color (U) Yellow Yellow [facility] Complete Blood Count Auto Di ffon 02-23-2023 Basophils (Bld) [#/Vol] 0.0 10*3/uL Normal 0.0-0.2 [facility] Comment on above: Result Comment: PERF ORMED BY: [place] [address] PATHOLOGIST MANAGER APPLICATION FLORY JAIN M.D. Performed By: #### C BC #### [address] Basophils/100 WBC (Bld) 0.4 % Normal . [facility] Comment on above: Performed By: #### C BC #### [facility] [address] Eosinophils (Bld) [#/Vol] 0.0 10*3/uL Normal 0.0-0.45 [facility] Comment on above: Performed By: #### C BC #### [facility] [address] Eosinophils/100 WBC (Bld) 0.4 % Normal . [facility] Comment on above: Performed By: #### C BC #### [address] Erythrocyte distribution width (RBC) [Ratio] 14.1 % Normal 11.9-15.3 [facility] Comment on above: Performed By: #### C BC #### [address] Hematocrit (Bld) [Volume fraction] 34.7 % Normal 34.0-46.4 [facility] Comment on above: Performed By: #### C BC #### [address] Hemoglobin (Bld) [Mass/Vol] 12.0 g/dL Normal 11.8-15.4 [facility] Comment on above: Performed By: #### C BC #### [place] [address] [place] Lymphocytes (Bld) [#/Vol] 2.9 10*3/uL Normal 1.00-4.8 [facility] Comment on above: Performed By: #### C BC #### [place] [address] [place] Lymphocytes/100 WBC (Bld) 23.1 % Normal . [facility] Comment on above: Performed By: #### C BC #### [address] MCH (RBC) [Entitic mass] 30.2 pg Normal 24.7-34.3 [facility] Comment on above: Performed By: #### C BC #### [address] MCV (RBC) [Entitic vol] 87.6 fL Normal 80-100 [facility] Comment on above: Performed By: #### C BC #### [facility] [address] Mean Corpuscular HGB Conc 34.5 g/dL Normal 32.0-35.0 [facility] Comment on above: Performed By: #### C BC #### [address] Monocytes (Bld) [#/Vol] 0.7 10*3/uL Normal 0.0-0.8 [facility] Comment on above: Performed By: #### C BC #### [address] Monocytes/100 WBC (Bld) 5.5 % Normal . [facility] Comment on above: Performed By: #### C BC #### [address] Neutrophils (Bld) [#/Vol] 9.0 10*3/uL High 1.8-7.7 [facility] Comment on above: Performed By: #### C BC #### [address] Neutrophils/100 WBC (Bld) 70.6 % Normal . [facility] Comment on above: Performed By: #### C BC #### [address] NRBC% 0.0 /100{WBC} Normal 0-0.5 [facility] Comment on above: Performed By: #### C BC #### [address] Platelet mean volume (Bld) [Entitic vol] 8.1 fL Normal 6.3-10.7 [facility] Comment on above: Performed By: #### C BC #### [place] [address] [place] Platelets (Bld) [#/Vol] 331 10*3/uL Normal 150-450 [facility] Comment on above: Performed By: #### C BC #### [facility] [address] RBC (Bld) [#/Vol] 3.96 10*6/uL Normal 3.60-5.00 [facility] Comment on above: Performed By: #### C BC #### [facility] [address] WBC (Bld) [#/Vol] 12.7 10*3/uL High 3.8-11.6 [facility] Comment on above: Performed By: #### C BC #### [facility] [address] [place] [address] Cord Blood Gason 02-23-2023 Cord Arterial Blood Total CO2 25.1 mmol/L Normal 23.0-27.0 [facility] Comment on above: Performed By: #### C ORDBG #### Point of Care testing , Cord Blood Base Excess -0.3 mmol/L Normal -3.0-3.0 [facility] Comment on above: Performed By: #### C ORDBG #### Point of Care testing , Cord Blood Capillary PO2 20.1 mm[Hg] Off scale low 90.0-100.0 [facility] Comment on above: Performed By: #### C ORDBG #### Point of Care testing , Cord Blood Frac Inspired O2 21 % Normal [facility] Comment on above: Performed By: #### C ORDBG #### Point of Care testing , Cord Blood HCO3 23.9 mmol/L Normal 23.0-29.0 [facility] Comment on above: Performed By: #### C ORDBG #### Point of Care testing , Cord Blood Oxygen Content 5.1 mmol/L Low 6.6-9.7 [facility] Comment on above: Performed By: #### C ORDBG #### Point of Care testing , Cord Blood Oxygen Sat 54.3 % Low 95.0-99.0 [facility] Comment on above: Performed By: #### C ORDBG #### Point of Care testing , Cord Blood PCO2 38.2 mm[Hg] Normal 35.0-45.0 [facility] Comment on above: Performed By: #### C ORDBG #### Point of Care testing , Cord Blood pH 7.42 Normal 7.35-7.45 [facility] Comment on above: Performed By: #### C ORDBG #### Point of Care testing , Respiratory Critical Normal [facility] Comment on above: Result Comment: Crit ical Value called on: 02/23/2023 at 14:53 PERFORMED BY: [place] [address] PATHOLOGIST MANAGER APPLICATION FLORY JAIN M.D. Performed By: #### C ORDBG #### Point of Care testing , VBG Draw Site Umbilical Cord Normal [facility] Comment on above: Performed By: #### C ORDBG #### Point of Care testing , Dipstick and Microscopicon 0 02-23-2023 Appearance (U) Cloudy Critically abnormal Clear [facility] Comment on above: Order Comment: Name Collection Type:: Clean-Voided Midstream Performed By: #### A FEMI ONEAL OBUDS #### [facility] [address] [place] [address] [place] Bacteria,Urine 2+ High None Seen [facility] Comment on above: Order Comment: Name Collection Type:: Clean-Voided Midstream Performed By: #### A FEMI ONEAL OBUDS #### [facility] [address] [place] [address] [place] Bilirubin,Urine Negative Normal Negative [facility] Comment on above: Order Comment: Name Collection Type:: Clean-Voided Midstream Performed By: #### A FEMI ONEAL OBUDS #### [facility] [address] [place] [address] [place] Color (U) Yellow Normal Yellow [facility] Comment on above: Order Comment: Name Collection Type:: Clean-Voided Midstream Performed By: #### A DALEUAPLUS, CUU, OBUDS #### [facility] [address] [place] [address] Glucose Ql (U) Normal Normal Normal [facility] Comment on above: Order Comment: Name Collection Type:: Clean-Voided Midstream Performed By: #### A DDONUAPLUS, CUU, OBUDS #### [facility] [address] [place] [address] [place] Hyaline Casts,Urine None Seen Normal 0-1 [facility] Comment on above: Order Comment: Name Collection Type:: Clean-Voided Midstream Performed By: #### A DDONUAPLUS, CUU, OBUDS #### [address] Ketones Ql (U) Trace High Negative [facility] Comment on above: Order Comment: Name Collection Type:: Clean-Voided Midstream Performed By: #### A DDONUAPLUS, CUU, OBUDS #### [address] Leukocyte esterase Test strip Ql (U) 2+ High Negative [facility] Comment on above: Order Comment: Name Collection Type:: Clean-Voided Midstream Performed By: #### A DDONUAPLUS, CUU, OBUDS #### [address] Nitrite,Urine Negative Normal Negative [facility] Comment on above: Order Comment: Name Collection Type:: Clean-Voided Midstream Performed By: #### A DDONUAPLUS, CUU, OBUDS #### [facility] [address] [place] [address] [place] Occult Blood,Urine Negative Normal Negative [facility] Comment on above: Order Comment: Name Collection Type:: Clean-Voided Midstream Result Comment: PERF ORMED BY: [place] [address] PATHOLOGIST MANAGER APPLICATION FLORY JAIN M.D. Performed By: #### A DDONUAPLUS, CUU, OBUDS #### [address] Other Casts,Urine None Seen Normal None Seen [facility] Comment on above: Order Comment: Name Collection Type:: Clean-Voided Midstream Result Comment: PERF ORMED BY: [place] [address] PATHOLOGIST MANAGER APPLICATION FLORY JAIN M.D. Performed By: #### A DDONUAPLUS, CUU, OBUDS #### [address] pH (U) 7.0 [pH] Normal 5.0-9.0 [facility] Comment on above: Order Comment: Name Collection Type:: Clean-Voided Midstream Performed By: #### A DDONUAPLUS, CUU, OBUDS #### [address] Protein (U) [Mass/Vol] 30 mg/dL High Negative [facility] Comment on above: Order Comment: Name Collection Type:: Clean-Voided Midstream Performed By: #### A DDONUAPLUS, CUU, OBUDS #### [address] RBC,Urine 3-4 Normal 0-4 [facility] Comment on above: Order Comment: Name Collection Type:: Clean-Voided Midstream Performed By: #### A DDONUAPLUS, CUU, OBUDS #### [address] [place],Urine 1.016 Normal 1.001-1.030 [facility] Comment on above: Order Comment: Name Collection Type:: Clean-Voided Midstream Performed By: #### A DDONUAPLUS, CUU, OBUDS #### [address] Squamous Epithelial Cell,Urine 10-19 High 0-2 [facility] Comment on above: Order Comment: Name Collection Type:: Clean-Voided Midstream Performed By: #### A DDONUAPLUS, CUU, OBUDS #### [facility] [address] Urobilinogen,Urine Normal Normal Normal [facility] Comment on above: Order Comment: Name Collection Type:: Clean-Voided Midstream Performed By: #### A DDONUAPLUS, CUU, OBUDS #### [facility] [address] [place] [address] [place] WBC,Urine 10-19 High 0-4 [facility] Comment on above: Order Comment: Name Collection Type:: Clean-Voided Midstream Performed By: #### A DDONUAPLUS, CUU, OBUDS #### [facility] [address] Ketones Auto test strip (U) [Mass/Vol]Ordered By: DIANA SORENSON on 02-23-2023 Ketones (U) [Mass/Vol] Trace Negative [facility] Nitrite Test strip Ql (U)Ord ered By: DIANA SORENSON on 02-23-2023 Nitrite Ql (U) Negative Negative [facility] No Panel InformationOrdered By: DIANA SORENSON on 02-23-2023 Blood Gas Critical Value See comment [facility] Comment on above: Critical Value louis d on: 02/23/2023 at 14:53 Blood Gas Sample Site Umbilical cord [facility] Cord Arterial Bld Oxygen Saturation 54.3 % 95.0-99.0 [facility] Cord Arterial Blood Base Excess -0.3 mmol/L -3.0-3.0 [facility] Cord Arterial Blood O2 Content 5.1 mmol/L 6.6-9.7 [facility] Cord Blood HCO3 23.9 mmol/L 23.0-29.0 [facility] Cord Blood PCO2 38.2 mm[Hg] 35.0-45.0 [facility] Cord Blood pH 7.42 7.35-7.45 [facility] Cord Blood PO2 20.1 mm[Hg] 90.0-100.0 [facility] Cord Blood Total CO2 25.1 mmol/L 23.0-27.0 [facility] FiO2 21 % [facility] OB Urine Drug Screen (NO THC )on 02-23-2023 Amphetamine Screen,Urine Negative Normal Negative [facility] Comment on above: Performed By: #### A DDONUAPLUSTAOU, OBUDS #### [address] Barbiturate Screen,Urine Negative Normal Negative [facility] Comment on above: Performed By: #### A DDONUAPLUSTAOU, OBUDS #### [place] [address] [place] Benzodiazepines Screen,Urine Negative Normal Negative [facility] Comment on above: Performed By: #### A DDONUAPLUSTAOU, OBUDS #### [address] Cocaine Screen,Urine Negative Normal Negative [facility] Comment on above: Performed By: #### A DDONUATAO GOLDBERGU, OBUDS #### [address] Opiate Screen,Urine Negative Normal Negative [facility] Comment on above: Performed By: #### A DDONUAPLUSTAOU, OBUDS #### [address] Phencyclidine Screen, Urine Negative Normal Negative [facility] Comment on above: Result Comment: Thes e are unconfirmed results and should not be used for legal purposes. Drug Cut-Off Concentration: AMPH 1000 ng/mL KIMMY 200 ng/mL DILMA 200 ng/mL COCM 300 ng/mL OP 300 ng/mL PCP 25 ng/mL PERFORMED BY: [place] [address] PATHOLOGIST MANAGER APPLICATION FLORY JAIN M.D. Performed By: #### A DDONUAPLUS CUU, OBUDS #### [address] Opiates [Presence] in Urine by Screen methodOrdered By: DIANA SORENSON on 02-23-2023 Opiates Screen Ql (U) Negative Negative [facility] Phencyclidine Screen Ql (U)O rdered By: DIANA SORENSON on 02-23-2023 Phencyclidine Ql (U) Negative Negative [facility] Comment on above: These are unconfirme d results and should not be used for legal purposes. Drug Cut-Off Concentration: AMPH 1000 ng/mL KIMMY 200 ng/mL DILMA 200 ng/mL COCM 300 ng/mL OP 300 ng/mL PCP 25 ng/mL Protein Auto test strip (U) [Mass/Vol]Ordered By: DIANA SORENSON on 02-23-2023 Protein (U) [Mass/Vol] 30 mg/dL Negative [facility] RPR w/rfx to Quant TP Abson 02-23-2023 RPR, Rfx Quant RPR Non-Reactive Normal Non Reactive [facility] Comment on above: Result Comment: Perf ormed at: - [facility] [address] [id number] Nutrition Technician: Rashaad Trevino PhD, Phone: [phone] PERFORMED BY: [place] [address] PATHOLOGIST MANAGER APPLICATION FLORY JAIN M.D. Performed By: #### R FL W RFX #### [facility] , Reagin Ab [Presence] in Seru m by RPROrdered By: DIANA SORENSON on 02-23-2023 Reagin Ab RPR Ql (S) Non-Reactive Non Reactive [facility] Comment on above: Performed at: - [facility] [address] [id number] Director: Rashaad Trevino PhD, Phone: [phone] Specific gravity Auto test s trip (U) [Rel density]Ordered By: DIANA SORENSON on 02-23-2023 Specific gravity (U) [Rel density] 1.016 1.001-1.030 [facility] Squamous epithelial cells de tection in urine sediment by light microscopyOrdered By: DIANA SORENSON on 02-23-2023 Epithelial cells.squamous LM Ql (Urine sed) 10-19 [HPF] 0-2 [facility] Urine Cultureon 02-23-2023 Bacteria identified Cx Nom (U) <9,000 colonies/ml mixed bacterial skin contaminants 2 Days PERFORMED BY: [place] [address] PATHOLOGIST MANAGER APPLICATION FLORY JAIN M.D. Normal [facility] Comment on above: Performed By: #### A DDONUAPLUS, CUU, OBUDS #### [address] Urine bacteria detection by automated methodOrdered By: DIANA SORENSON on 02-23-2023 Bacteria Auto Ql (U) 2+ None Seen [facility] Urine clarity by refractomet ry automatedOrdered By: DIANA SORENSON on 02-23-2023 Clarity Refractometry automated (U) Cloudy Clear [facility] Urine culture routineOrdered By: DIANA SORENSON on 02-23-2023 Bacteria identified Cx Nom (U) 2 Days [facility] Urine glucose measurement by automated test strip (mass/volume)Ordered By: DIANA SORENSON on 02-23-2023 Glucose Auto test strip (U) [Mass/Vol] Normal mg/dL Normal [facility] Urine hemoglobin detection b y automated test stripOrdered By: DIANA SORENSON on 02-23-2023 Hemoglobin Auto test strip Ql (U) Negative Negative [facility] Urine leukocyte esterase det ection by automated test stripOrdered By: DIANA SORENSON on 02-23-2023 Leukocyte esterase Auto test strip Ql (U) 2+ Negative [facility] Urobilinogen Auto test strip (U) [Mass/Vol]Ordered By: DIANA SORENSON on 02-23-2023 Urobilinogen (U) [Mass/Vol] Normal mg/dL Normal [facility] pH Auto test strip (U)Ordere d By: DIANA SORENSON on 02-23-2023 pH (U) 7.0 [pH] 5.0-9.0 [facility] Bacterial susceptibility wooten el EZEQUIEL (Isol)on 01-31-2023 Microorganism identified Cx Nom (Unsp spec) [id number] Abnormal [facility] Comment on above: Order Comment: Speci men Type: MICROBIAL ISOLATE Ordering Facility: [facility] Address: [address] [place] [address] Result Comment: Stre ptococcus agalactiae (group b streptococcus) Identification performed by client. Performed By: #### Hannah CRANE, [id number] #### [facility] CLIA [id number] [address] [place] [address] [place] MINIMUM INHIBITORY CONCENTRA TION (VIZION)on 01-31-2023 cefTRIAXone [Susc] 0.25 Susceptible Susceptib le <=0.5 , Nonsusceptible >.5 [facility] Comment on above: Order Comment: Order ing Facility: [facility] Address: [address] [place] [address] Performed By: #### Hannah CRANE, [id number] #### [facility] CLIA [id number] [address] [place] [address] [place] Clindamycin [Susc] <=0.12 Susceptible Susceptib le <=0.25 , Intermediate >.25 , Resistant >.5 [facility] Comment on above: Order Comment: Order ing Facility: [facility] Address: [address] [place] [address] Performed By: #### Hannah CRANE, [id number] #### [facility] CLIA [id number] [address] [place] [address] [place] Erythromycin [Susc] <=0.25 Susceptible Suscepti ble <=0.25 , Intermediate >.25 , Resistant >=1 [facility] Comment on above: Order Comment: Order ing Facility: [facility] Address: [address] [place] [address] Performed By: #### Hannah CRANE, [id number] #### [facility] CLIA [id number] [address] [place] [address] [place] Penicillin [Susc] 0.06 Susceptible Susceptibl e <=0.125 , Nonsusceptible >.125 [facility] Comment on above: Order Comment: Order ing Facility: [facility] Address: [address] [place], [place] [id number] Performed By: #### V ROSA MARIA, [id number] #### [facility] CLIA [id number] [address] [place] [address] [place] Vancomycin [Susc] <=0.50 Susceptible Susceptibl e <=1 , Nonsusceptible >1 [facility] Comment on above: Order Comment: Order ing Facility: [facility] Address: [address] [place], [place] [id number] Performed By: #### V ROSA MARIA, [id number] #### [facility] CLIA [id number] [address] [place] [address] [place] No Panel InformationOrdered By: DIANA SORENSON on 01-31-2023 Group B Streptococcus Culture Strep. agalactiae Grp B [facility] Strep B Culture (PCN Allergi c)on 01-31-2023 Strep B Culture (PCN Allergic) ORGANISM: Strep. agalactiae Grp B (O:B) Comments Sent to [facility] for Sensitivity Testing Please see scanned report located in the Laboratory/Scanned Reports section of the EMR. PERFORMED BY: [place] [address] PATHOLOGIST MANAGER APPLICATION FLORY JAIN M.D. Normal [facility] Comment on above: Performed By: #### R FL W RFX #### [facility] , [place] PREG [...] FPMAT #### [facility] [address] [address] [address] Calin Marshall AFP Value 45.3 ng/mL Normal [facility] Comment on above: Performed By: #### A FPMAT #### [facility] [address] [address] [address] Calin Marshall AFP, Serum for Spina Bifida Report Normal [facility] Comment on above: Performed By: #### A FPMAT #### [facility] [address] [address] [address] Calin Marshall Comment Comment Normal [facility] Comment on above: Result Comment: Les Miller, Ph.D., [facility] Director . References: Available Upon Request. . Multiples Of Median Cutoffs For AFP Elevations Perry 2.5 Black 2.8 IDD 2.0 Twins 4.5 Abbreviation Definitions IDD - Insulin Dep Diabetes OSBR - Open Spina Bifida Risk . For further inquiries contact [facility] at [phone]. . This test was developed and its performance characteristics determined by [employer]. It has not been cleared or approved by the Food and Drug Administration. Performed By: #### A FPMAT #### [facility] [address] [address] [address] Calin Fung Age Collection Date 18.9 weeks Normal [facility] Comment on above: Performed By: #### A FPMAT #### [facility] [address] [address] [address] Calin Marshall Gestat, Age Based on Ultrasound Normal [facility] Comment on above: Result Comment: 8.6 on 07/25/2022 Recalculations are not recommended when gestational dating by LMP and ultrasound are within 10 days. Performed By: #### A FPMAT #### [facility] [address] [place] [address] Dr. Calin Marshall Insulin Dep Diabetes No Normal [facility] Comment on above: Performed By: #### A FPMAT #### [facility] [address] [place] [address] Dr. Calin Marshall Interpretation Comment Normal [facility] Comment on above: Result Comment: Inte rpretation: [...] Customer Services to discuss available options. The [employer] recommends amniocentesis be offered to women age 35 and older. Performed By: #### A FPMAT #### [facility] [address] [place] [address] Dr. Calin Marshall [age] Normal [facility] Comment on above: Performed By: #### A FPMAT #### [facility] [address] [place] [address] Dr. Calin Marshall Multiple Gestation No Normal [facility] Comment on above: Performed By: #### A FPMAT #### [facility] [address] [place] [address] Dr. Calin Marshall [place] [id number] [facility] Comment on above: Performed By: #### A FPMAT #### [facility] [address] [place] [address] Dr. Calin Marshall PDF . [facility] Comment on above: Performed By: #### A FPMAT #### [facility] [address] [place] [address] Dr. Clain Marshall Race [facility] Comment on above: Performed By: #### A FPMAT #### [facility] [address] [place] [address] Dr. Calin Marshall Test Results: Negative [facility] Comment on above: Performed By: #### A FPMAT #### [facility] [address] [place] [address] Dr. Calin Marshall PAP ACOG PANEL 2: 21 to 29on 09-12-2022 . . [facility] Comment on above: Performed By: #### R UBIGG #### [facility] [address] [place] [address] Dr. Calin Marshall Age Gdln ACOG Testing 21-29 [facility] Comment on above: Performed By: #### R UBIGG #### [facility] [address] [place] [address] Dr. Calin Marshall DIAGNOSIS: Comment [facility] Comment on above: Result Comment: NEGA TIVE FOR INTRAEPITHELIAL LESION OR MALIGNANCY. Performed By: #### R UBIGG #### [facility] [address] [place] [address] Dr. Calin Marshall Methodology: Comment [facility] Comment on above: Result Comment: This liquid based ThinPrep(R) pap test was screened with the use of an image guided system. Performed By: #### R UBIGG #### [facility] [address] [place] [address] Dr. Calin Marshall Note: Comment Normal [facility] Comment on above: Result Comment: The Pap [...] R UBIGG #### [facility] [address] [place] [address] Dr. Calin Marshall Performed by: Comment Normal [facility] Comment on above: Result Comment: Essence Salazar, Salt Washer (ASCP) Performed By: #### R UBIGG #### [facility] [address] [place] [address] Dr. Calin Marshall Reflex Criteria: Comment [facility] Comment on above: Result Comment: The HPV DNA reflex criteria were not met with this specimen result therefore, no HPV testing was performed. . Performed By: #### R UBIGG #### [facility] [address] [place] [address] Dr. Calin Marshall Specimen adequacy: Comment [facility] Comment on above: Result Comment: Sati sfactory for evaluation. No endocervical component is identified. Performed By: #### R UBIGG #### [facility] [address] [place] [address] Dr. Calin Marshall CHLAMYDIA/GONOCOCCUS RAUL (SW AB/URINE/PAPon 09-08-2022 Chlamydia trachomatis, RAUL Negative Normal Negative [facility] Comment on above: Performed By: #### C T/NGNA #### [facility] [address] [place] [address] Dr. Calin Marshall Neisseria gonorrhoeae, RAUL Negative Normal Negative [facility] Comment on above: Performed By: #### C T/NGNA #### [facility] [address] [place] [address] Dr. Calin Marshall HEP B SURFACE ANTIGEN SCREEN on 08-11-2022 HBsAg Screen Negative Normal Negative [facility] Comment on above: Performed By: #### C MP, LIPA #### [facility] [address] [address] [address] Calin Marshall HEPATITIS C VIRUS AB W/ REFL EX QUANTon 08-11-2022 HCV AB <0.1 Normal 0.0-0.9 [facility] Comment on above: Performed By: #### R UBIGG #### [facility] [address] [place] [address] Dr. Calin Marshall Interpretation: Comment Normal [facility] Comment on above: Result Comment: Nega tive Not infected with HCV, unless recent infection is suspected or other evidence exists to indicate HCV infection. Performed By: #### R UBIGG #### [facility] [address] [place] [address] Dr. Calin Marshall HIV 1 AND 2 WITH REFLEXon HIV Screen 4th Generation wRfx Non-Reactive Normal Non Reactive [facility] Comment on above: Result Comment: HIV Negative HIV-1/HIV-2 antibodies and HIV-1 p24 antigen were NOT detected. There is no laboratory evidence of HIV infection. Performed By: #### H IV12 #### [facility] [address] [place] [address] Dr. Calin Marshall RPR QUANTon 08-11-2022 Rapid Plasma Reagin, Quant Non-Reactive Normal NonRea<1:1 [facility] Comment on above: Result Comment: Plea se Note: This test does not meet current guidelines for screening and diagnosis of syphilis. This test is intended for following treatment response in patients being treated for syphilis infection. To screen for syphilis infection, a reflex cascade that includes both RPR and a treponema-specific assay should be utilized, such as Treponema pallidum (Syphilis) Screening [place] (964463) or Rapid Plasma Reagin (RPR) Test With Reflex to Quantitative RPR and Confirmatory Treponema pallidum Antibodies (848897). Performed By: #### R PRQ #### [facility] [address] [place] [address] Dr. Calin Marshall RUBELLA AB IGGon 08-11-2022 Rubella Antibodies, IgG 12.10 index Normal Immune >0.99 [facility] Comment on above: Result Comment: Non- immune <0.90 Equivocal 0.90 - 0.99 Immune >0.99 Performed By: #### R UBIGG #### [facility] [address] [place] [address] Dr. Calin Marshall CBC AUTO DIFFon 08-10-2022 BASO # 0.0 103/ul Normal 0.0-0.1 [facility] Comment on above: Performed By: #### R UBIGG #### [facility] [address] [place] [address] Dr. Calin Marshall Basophils/100 WBC (Bld) 0.4 % Normal 0.2-2.0 [facility] Comment on above: Performed By: #### R UBIGG #### [facility] [address] [place] [address] Dr. Calin Marshall EO # 0.1 103/ul Normal 0.0-0.7 [facility] Comment on above: Performed By: #### R UBIGG #### [facility] [address] [place] [address] Dr. Calin Marshall Eosinophils/100 WBC (Bld) 0.7 % Critically low 0.9-7.0 [facility] Comment on above: Performed By: #### R UBIGG #### [facility] [address] [place] [address] Dr. Calin Marshall Erythrocyte distribution width (RBC) [Ratio] 12.6 % Normal 11.0-15.0 [facility] Comment on above: Performed By: #### R UBIGG #### [facility] [address] [place] [address] Dr. Calin Marshall Hematocrit (Bld) [Volume fraction] 37.6 % Normal 36.0-48.0 [facility] Comment on above: Performed By: #### R UBIGG #### [facility] [address] [place] [address] Dr. Calin Marshall Hemoglobin (Bld) [Mass/Vol] 12.5 g/dL Normal 12.0-16.0 [facility] Comment on above: Performed By: #### R UBIGG #### [facility] [address] [place] [address] Dr. Calin Marshall IG # 0.03 10e3/ul Normal 0.00-0.03 [facility] Comment on above: Performed By: #### R UBIGG #### [facility] [address] [place] [address] Dr. Calin Marshall IG % 0.3 % Normal 0.0-0.5 [facility] Comment on above: Performed By: #### R UBIGG #### [facility] [address] [place] [address] Dr. Calin Marshall LYMPH # 2.5 103/ul Normal 1.2-3.8 [facility] Comment on above: Performed By: #### R UBIGG #### [facility] [address] [place] [address] Dr. Calin Marshall Lymphocytes/100 WBC (Bld) 22.3 % Normal 20.5-60.0 [facility] Comment on above: Performed By: #### R UBIGG #### [facility] [address] [place] [address] Dr. Calin Marshall MANUAL DIFF REQ NO Normal [facility] Comment on above: Performed By: #### R UBIGG #### [facility] [address] [place] [address] Dr. Calin Marshall MCH (RBC) [Entitic mass] 29.8 pg Normal 26.7-34.0 [facility] Comment on above: Performed By: #### R UBIGG #### [facility] [address] [place] [address] Dr. Calin Marshall MCHC (RBC) [Mass/Vol] 33.2 g/dL Normal 29.9-35.2 [facility] Comment on above: Performed By: #### R UBIGG #### [facility] [address] [place] [address] Dr. Calin Marshall MCV (RBC) [Entitic vol] 89.5 fL Normal 81.0-99.0 [facility] Comment on above: Performed By: #### R UBIGG #### [facility] [address] [address] [address] Calin Marshall MONO # 0.5 103/ul Normal 0.3-0.8 [facility] Comment on above: Performed By: #### R UBIGG #### [facility] [address] [place] [address] Dr. Calin Marshall Monocytes/100 WBC (Bld) 4.3 % Normal 1.7-12.0 [facility] Comment on above: Performed By: #### R UBIGG #### [facility] [address] [place] [address] Dr. Calin Marshall NEUT # 8.0 103/ul Critically high 1.4-6.5 [facility] Comment on above: Performed By: #### R UBIGG #### [facility] [address] [place] [address] Dr. Calin Marshall Neutrophils/100 WBC (Bld) 72.0 % Normal 43.0-75.0 [facility] Comment on above: Performed By: #### R UBIGG #### [facility] [address] [place] [address] Dr. Calin Marshall Platelet mean volume (Bld) [Entitic vol] 10.2 fL Normal 9.5-13.5 [facility] Comment on above: Performed By: #### R UBIGG #### [facility] [address] [place] [address] Dr. Calin Marshall PLT 362 103/ul Normal 150-450 [facility] Comment on above: Performed By: #### R UBIGG #### [facility] [address] [place] [address] Dr. Calin Marshall RBC 4.20 106/ul Normal 4.20-5.40 [facility] Comment on above: Performed By: #### R UBIGG #### [facility] [address] [place] [address] Dr. Calin Marshall WBC 11.0 103/ul Normal 4.0-11.0 [facility] Comment on above: Performed By: #### R UBIGG #### [facility] [address] [place], [place] [id number] Dr. Calin Marshall CULTURE URINEon 08-10-2022 CULTURE URINE Culture Observations : LIGHT GROWTH OF MIXED GENITAL MARIO. NO POTENTIAL PATHOGENS SEEN. Normal [facility] Comment on above: Performed By: #### R UBIGG #### [facility] [address] [place] [address] Dr. Calin Marshall DRUG SCREEN RAPID (URINE)on 08-10-2022 AMP Negative Normal NEGATIVE [facility] Comment on above: Performed By: #### D RUGRPD #### [facility] [address] [place] [address] Dr. Calin Marshall BAR Negative Normal NEGATIVE [facility] Comment on above: Performed By: #### D RUGRPD #### [facility] [address] [place] [address] Dr. Calin Marshall BUP Negative Normal NEGATIVE [facility] Comment on above: Performed By: #### D RUGRPD #### [facility] [address] [place] [address] Dr. Calin Marshall BZO Negative Normal NEGATIVE [facility] Comment on above: Performed By: #### D RUGRPD #### [facility] [address] [place] [address] Dr. Calin Marshall ROSARIO Negative Normal NEGATIVE [facility] Comment on above: Performed By: #### D RUGRPD #### [facility] [address] [place] [address] Dr. Calin Marshall CUT-OFFS SEE BELOW Normal [...] RUGRPD #### [facility] [address] [address] [address] Calin Marshall DRUG CUT HEADER DRUG CLASS TEST SYST EM CUT-OFF CONCENTRATIONS ARE FOLLOWS: Normal [facility] Comment on above: Performed By: #### D RUGRPD #### [facility] [address] [address] [address] Calin Marshall mAMP Negative Normal NEGATIVE [facility] Comment on above: Performed By: #### D RUGRPD #### [facility] [address] [address] [address] Calin Marshall MTD Negative Normal NEGATIVE [facility] Comment on above: Performed By: #### D RUGRPD #### [facility] [address] [place] [address] Dr. Calin Marshall OPI Negative Normal NEGATIVE [facility] Comment on above: Performed By: #### D RUGRPD #### [facility] [address] [address] [address] Calin Marshall OXY Negative Normal NEGATIVE [facility] Comment on above: Performed By: #### D RUGRPD #### [facility] [address] [address] [address] Calin Marshall PCP Negative Normal NEGATIVE [facility] Comment on above: Performed By: #### D RUGRPD #### [facility] [address] [address] [address] Calin Marshall PPX Negative Normal NEGATIVE [facility] Comment on above: Performed By: #### D RUGRPD #### [facility] [address] [address] [address] Calin Marshall TCA Positive Abnormal NEGATIVE [facility] Comment on above: Performed By: #### D RUGRPD #### [facility] [address] [place] [address] Dr. Calin Marshall THC Positive Abnormal NEGATIVE [facility] Comment on above: Performed By: #### D RUGRPD #### [facility] [address] [address] [address] Calin Marshall GLYCOHEMOGLOBIN A1Con 2022 ADA RECOMMENDATION SEE BELOW Normal [facility] Comment on above: Result Comment: ADA RECOMMENDED LIMIT 4.0 - 6.0 ADA THERAPEUTIC TARGET < 7.0 ACTION SUGGESTED > 7.0 Performed By: #### C YULIANA, LIPA #### [facility] [address] [place] [address] Dr. Calin Marshall Glucose [Mass/Vol] 97 mg/dL Normal [facility] Comment on above: Performed By: #### C MP, LIPA #### [facility] [address] [place] [address] Dr. Calin Marshall HbA1c (Bld) [Mass fraction] 5.0 % Normal 4.5-6.2 [facility] Comment on above: Performed By: #### C YULIANA, LIPA #### [facility] [address] [place] [address] Dr. Calin Marshall CHON BOX TEST PT SEND OUTo n 08-10-2022 SENT TO REF LAB 08/10/2022 Normal [facility] Comment on above: Performed By: #### R UBIGG #### [facility] [address] [place] [address] Dr. Calin Marshall TYPE AND SCREENon 08-10-2022 TYPE AND SCREEN Negative Normal [facility] Comment on above: Performed By: #### R UBIGG #### [facility] [address] [place] [address] Dr. Calin Marshall US PREG TVon 07-26-2022 [...] R UBIGG #### [facility] [address] [place] [address] Dr. Calin Marshall Basophils/100 WBC (Bld) 0.3 % Normal 0.2-2.0 [facility] Comment on above: Performed By: #### R UBIGG #### [facility] [address] [place] [address] Dr. Calin Marshall EO # 0.0 103/ul Normal 0.0-0.7 [facility] Comment on above: Performed By: #### R UBIGG #### [facility] [address] [place] [address] Dr. Calin Marshall Eosinophils/100 WBC (Bld) 0.2 % Critically low 0.9-7.0 [facility] Comment on above: Performed By: #### R UBIGG #### [facility] [address] [place] [address] Dr. Calin Marshall Erythrocyte distribution width (RBC) [Ratio] 11.9 % Normal 11.0-15.0 [facility] Comment on above: Performed By: #### R UBIGG #### [facility] [address] [place] [address] Dr. Calin Marshall Hematocrit (Bld) [Volume fraction] 40.8 % Normal 36.0-48.0 [facility] Comment on above: Performed By: #### R UBIGG #### [facility] [address] [place] [address] Dr. Calin Marshall Hemoglobin (Bld) [Mass/Vol] 14.4 g/dL Normal 12.0-16.0 [facility] Comment on above: Performed By: #### R UBIGG #### [facility] [address] [place] [address] Dr. Calin Marshall IG # 0.06 10e3/ul Critically high 0.00-0.03 [facility] Comment on above: Performed By: #### R UBIGG #### [facility] [address] [place] [address] Dr. Calin Marshall IG % 0.3 % Normal 0.0-0.5 [facility] Comment on above: Performed By: #### R UBIGG #### [facility] [address] [place] [address] Dr. Calin Marshall LYMPH # 3.4 103/ul Normal 1.2-3.8 [facility] Comment on above: Performed By: #### R UBIGG #### [facility] [address] [place] [address] Dr. Calin Marshall Lymphocytes/100 WBC (Bld) 18.6 % Critically low 20.5-60.0 [facility] Comment on above: Performed By: #### R UBIGG #### [facility] [address] [place] [address] Dr. Calin Marshall MANUAL DIFF REQ NO Normal [facility] Comment on above: Performed By: #### R UBIGG #### [facility] [address] [place] [address] Dr. Calin Marshall MCH (RBC) [Entitic mass] 30.3 pg Normal 26.7-34.0 [facility] Comment on above: Performed By: #### R UBIGG #### [facility] [address] [place] [address] Dr. Calin Marshall MCHC (RBC) [Mass/Vol] 35.3 g/dL Critically high 29.9-35.2 [facility] Comment on above: Performed By: #### R UBIGG #### [facility] [address] [place] [address] Dr. Calin Marshall MCV (RBC) [Entitic vol] 85.7 fL Normal 81.0-99.0 [facility] Comment on above: Performed By: #### R UBIGG #### [facility] [address] [place] [address] Dr. Calin Marshall MONO # 0.9 103/ul Critically high 0.3-0.8 [facility] Comment on above: Performed By: #### R UBIGG #### [facility] [address] [address] [address] Calin Marshall Monocytes/100 WBC (Bld) 4.9 % Normal 1.7-12.0 [facility] Comment on above: Performed By: #### R UBIGG #### [facility] [address] [place] [address] Dr. Calin Marshall NEUT # 13.8 103/ul Critically high 1.4-6.5 [facility] Comment on above: Performed By: #### R UBIGG #### [facility] [address] [place] [address] Dr. Calin Marshall Neutrophils/100 WBC (Bld) 75.7 % Critically high 43.0-75.0 [facility] Comment on above: Performed By: #### R UBIGG #### [facility] [address] [place] [address] Dr. Calin Marshall Platelet mean volume (Bld) [Entitic vol] 9.5 fL Normal 9.5-13.5 [facility] Comment on above: Performed By: #### R UBIGG #### [facility] [address] [place] [address] Dr. Calin Marshall PLT 427 103/ul Normal 150-450 [facility] Comment on above: Performed By: #### R UBIGG #### [facility] [address] [place] [address] Dr. Calin Marshall RBC 4.76 106/ul Normal 4.20-5.40 [facility] Comment on above: Performed By: #### R UBIGG #### [facility] [address] [place] [address] Dr. Calin Marshall WBC 18.2 103/ul Critically high 4.0-11.0 [facility] Comment on above: Performed By: #### R UBIGG #### [facility] [address] [place] [address] Dr. Calin Marshall ER URINE PROFILEon 3 Bilirubin Ql (U) Negative Normal NEGATIVE [facility] Comment on above: Performed By: #### C MP, LIPA #### [facility] [address] [place] [address] Dr. Calin Marshall Clarity (U) CLEAR Normal CLEAR [facility] Comment on above: Performed By: #### C MP, LIPA #### [facility] [address] [place] [address] Dr. Calin Marshall Color (U) YELLOW Normal YELLOW [facility] Comment on above: Performed By: #### C MP, LIPA #### [facility] Laboratory [address] [place] [address] Dr. Calin HANDY A micrscopic examination will be performed if indicated. Normal [facility] Comment on above: Performed By: #### C MP, LIPA #### [facility] [address] [place] [address] Dr. Calin Marshall Glucose Ql (U) Negative Normal NEGATIVE [facility] Comment on above: Performed By: #### C MP, LIPA #### [facility] [address] [place] [address] Dr. Calin Marshall Hemoglobin Ql (U) SMALL Abnormal NEGATIVE [facility] Comment on above: Performed By: #### C MP, LIPA #### [facility] [address] [place] [address] Dr. Calin Marshall Ketones Ql (U) >=80 Abnormal NEGATIVE [facility] Comment on above: Performed By: #### C MP, LIPA #### [facility] [address] [place] [address] Dr. Calin Marshall LEUKOCYTES Negative Normal NEGATIVE [facility] Comment on above: Performed By: #### C MP, LIPA #### [facility] [address] [place] [address] Dr. Calin Marshall Nitrite Ql (U) Negative Normal NEGATIVE [facility] Comment on above: Performed By: #### C MP, LIPA #### [facility] [address] [place] [address] Dr. Calin Marshall pH (U) 6.0 [pH] Normal 5-9 [facility] Comment on above: Performed By: #### C MP, LIPA #### [facility] [address] [place] [address] Dr. Calin Marshall Protein (U) [Mass/Vol] 30 mg/dL Abnormal NEGATIVE/ TRA CE [facility] Comment on above: Performed By: #### C MP, LIPA #### [facility] [address] [place] [address] Dr. Calin Marshall SPEC GRAVITY >=1.030 Abnormal 1.005-<=1.025 [facility] Comment on above: Performed By: #### C MP, LIPA #### [facility] [address] [place] [address] Dr. Calin Marshall UR MICRO IND INDICATED Normal [facility] Comment on above: Performed By: #### C MP, LIPA #### [facility] [address] [place] [address] Dr. Calin Marshall Urobilinogen Qn (U) 0.2 {Bridger'U}/dL Normal 0.2 - 1. 0 [facility] Comment on above: Performed By: #### C MP, LIPA #### [facility] [address] [place] [address] Dr. Calin Marshall LIPASEon 07-12-2022 Lipase [Catalytic activity/Vol] 186.0 U/L Normal 73.0-393.0 [facility] Comment on above: Performed By: #### C MP, LIPA #### [facility] [address] [place] [address] Dr. Calin Marshall PROF 14(COMP METB)on 023 Albumin [Mass/Vol] 4.6 g/dL Normal 3.4-5.0 [facility] Comment on above: Performed By: #### C MP, LIPA #### [facility] [address] [place] [address] Dr. Calin Marshall Albumin/Globulin [Mass ratio] 1.0 {ratio} Normal [facility] Comment on above: Performed By: #### C MP, LIPA #### [facility] [address] [place] [address] Dr. Calin Marshall ALP [Catalytic activity/Vol] 100 U/L Normal 46-116 [facility] Comment on above: Performed By: #### C MP, LIPA #### [facility] [address] [place] [address] Dr. Calin Marshall ALT [Catalytic activity/Vol] 25 U/L Normal 14-59 [facility] Comment on above: Performed By: #### C MP, LIPA #### [facility] [address] [place] [address] Dr. Calin Marshall Anion gap [Moles/Vol] 18.6 mmol/L Normal [facility] Comment on above: Performed By: #### C MP, LIPA #### [facility] [address] [place] [address] Dr. Calin Marshall AST [Catalytic activity/Vol] 15 U/L Normal 15-37 [facility] Comment on above: Performed By: #### C MP, LIPA #### [facility] [address] [place] [address] Dr. Calin Marshall Bilirubin [Mass/Vol] 0.5 mg/dL Normal 0.2-1.0 [facility] Comment on above: Performed By: #### C MP, LIPA #### [facility] [address] [place] [address] Dr. Calin Marshall Calcium [Mass/Vol] 10.8 mg/dL Critically high 8.5-10.1 [facility] Comment on above: Performed By: #### C MP, LIPA #### [facility] [address] [place] [address] Dr. Calin Marshall Chloride [Moles/Vol] 95 mmol/L Critically low 98-107 [facility] Comment on above: Performed By: #### C MP, LIPA #### [facility] [address] [place] [address] Dr. Calin Marshall CO2 [Moles/Vol] 22.8 mmol/L Normal 21.0-32.0 [facility] Comment on above: Performed By: #### C MP, LIPA #### [facility] [address] [place] [address] Dr. Calin Marshall Creatinine [Mass/Vol] 0.86 mg/dL Normal 0.55-1.02 [facility] Comment on above: Performed By: #### C MP, LIPA #### [facility] [address] [place] [address] Dr. Calin Marshall EGFR-AF BAHRAINI >60 Normal >=60 [facility] Comment on above: Performed By: #### C MP, LIPA #### [facility] [address] [place] [address] Dr. Calin Marshall EGFR-NON AF BAHRAINI >60 Normal >=60 [facility] Comment on above: Performed By: #### C MP, LIPA #### [facility] [address] [place] [address] Dr. Calin Marshall Globulin (S) [Mass/Vol] 4.6 g/dL Normal [facility] Comment on above: Performed By: #### C MP, LIPA #### [facility] [address] [place] [address] Dr. Calin Marshall Glucose [Mass/Vol] 79 mg/dL Normal 74-106 [facility] Comment on above: Performed By: #### C MP, LIPA #### [facility] [address] [place] [address] Dr. Calin Marshall Potassium [Moles/Vol] 3.4 mmol/L Critically low 3.5-5.1 [facility] Comment on above: Performed By: #### C MP, LIPA #### [facility] [address] [place] [address] Dr. Calin Marshall Protein [Mass/Vol] 9.2 g/dL Critically high 6.4-8.2 [facility] Comment on above: Performed By: #### C MP, LIPA #### [facility] [address] [place] [address] Dr. Calin Marshall Sodium [Moles/Vol] 133 mmol/L Critically low 136-145 [facility] Comment on above: Performed By: #### C MP, LIPA #### [facility] [address] [place] [address] Dr. Calin Marshall Urea nitrogen [Mass/Vol] 10.0 mg/dL Normal 7.0-18.0 [facility] Comment on above: Performed By: #### C MP, LIPA #### [facility] [address] [place] [address] Dr. Calin Marshall Urea nitrogen/Creatinine [Mass ratio] 11.6 mg/mg Normal [facility] Comment on above: Performed By: #### C MP, LIPA #### [facility] [address] [place] [address] Dr. Calin Marshall URINE MICROSCOPIC ONLYon BACTERIA TRACE Abnormal NONE SEEN [facility] Comment on above: Performed By: #### C MP, LIPA #### [facility] [address] [place] [address] Dr. Calin Marshall Bacteria identified Cx Nom (U) NOT INDICATED Normal [facility] Comment on above: Performed By: #### C MP, LIPA #### [facility] [address] [place] [address] Dr. Calin Marshall CAST NONE SEEN Normal NONE SEEN [facility] Comment on above: Performed By: #### C MP, LIPA #### [facility] [address] [place] [address] Dr. Calin Marshall Crystals LM Nom (Urine sed) NONE SEEN Normal NONE SEEN [facility] Comment on above: Performed By: #### C MP, LIPA #### [facility] [address] [place] [address] Dr. Calin Marshall Epithelial cells LM Ql (Urine sed) RARE Normal NONE SEEN /RARE [facility] Comment on above: Performed By: #### C MP, LIPA #### [facility] [address] [place] [address] Dr. Calin Marshall MUCOUS NONE SEEN Normal NONE SEEN [facility] Comment on above: Performed By: #### C MP, LIPA #### [facility] [address] [place] [address] Dr. Calin Marshall RBC 0-2 Normal 0-2 [facility] Comment on above: Performed By: #### C MP, LIPA #### [facility] [address] [place] [address] Dr. Calin Marshall WBC NONE SEEN Normal NONE SEEN [facility] Comment on above: Performed By: #### C MP, LIPA #### [facility] [address] [place] [address] Dr. Calin Marshall CBC AUTO DIFFon 07-08-2022 BASO # 0.1 103/ul Normal 0.0-0.1 [facility] Comment on above: Performed By: #### C MP, LIPA #### [facility] [address] [place] [address] Dr. Calin Marshall Basophils/100 WBC (Bld) 0.4 % Normal 0.2-2.0 [facility] Comment on above: Performed By: #### C MP, LIPA #### [facility] [address] [place] [address] Dr. Calin Marshall EO # 0.1 103/ul Normal 0.0-0.7 [facility] Comment on above: Performed By: #### C MP, LIPA #### [facility] [address] [place] [address] Dr. Calin Marshall Eosinophils/100 WBC (Bld) 0.3 % Critically low 0.9-7.0 [facility] Comment on above: Performed By: #### C MP, LIPA #### [facility] [address] [place] [address] Dr. Calin Marshall Erythrocyte distribution width (RBC) [Ratio] 12.0 % Normal 11.0-15.0 [facility] Comment on above: Performed By: #### C MP, LIPA #### [facility] [address] [place] [address] Dr. Calin Marshall Hematocrit (Bld) [Volume fraction] 40.3 % Normal 36.0-48.0 [facility] Comment on above: Performed By: #### C MP, LIPA #### [facility] [address] [place] [address] Dr. Calin Marshall Hemoglobin (Bld) [Mass/Vol] 14.3 g/dL Normal 12.0-16.0 [facility] Comment on above: Performed By: #### C MP, LIPA #### [facility] [address] [place] [address] Dr. Calin Marshall IG # 0.05 10e3/ul Critically high 0.00-0.03 [facility] Comment on above: Performed By: #### C MP, LIPA #### [facility] [address] [place] [address] Dr. Calin Marshall IG % 0.3 % Normal 0.0-0.5 [facility] Comment on above: Performed By: #### C MP, LIPA #### [facility] [address] [place] [address] Dr. Calin Marshall LYMPH # 3.5 103/ul Normal 1.2-3.8 [facility] Comment on above: Performed By: #### C MP, LIPA #### [facility] [address] [place] [address] Dr. Calin Marshall Lymphocytes/100 WBC (Bld) 20.3 % Critically low 20.5-60.0 [facility] Comment on above: Performed By: #### C MP, LIPA #### [facility] [address] [place] [address] Dr. Calin Marshall MANUAL DIFF REQ NO Normal [facility] Comment on above: Performed By: #### C MP, LIPA #### [facility] [address] [place] [address] Dr. Calin Marshall MCH (RBC) [Entitic mass] 30.5 pg Normal 26.7-34.0 [facility] Comment on above: Performed By: #### C MP, LIPA #### [facility] [address] [place] [address] Dr. Calin Marshall MCHC (RBC) [Mass/Vol] 35.5 g/dL Critically high 29.9-35.2 [facility] Comment on above: Performed By: #### C MP, LIPA #### [facility] [address] [place] [address] Dr. Calin Marshall MCV (RBC) [Entitic vol] 85.9 fL Normal 81.0-99.0 [facility] Comment on above: Performed By: #### C MP, LIPA #### [facility] [address] [place] [address] Dr. Calin Marshall MONO # 0.8 103/ul Normal 0.3-0.8 [facility] Comment on above: Performed By: #### C MP, LIPA #### [facility] [address] [place] [address] Dr. Calin Marshall Monocytes/100 WBC (Bld) 4.6 % Normal 1.7-12.0 [facility] Comment on above: Performed By: #### C MP, LIPA #### [facility] [address] [place] [address] Dr. Calin Marshall NEUT # 12.8 103/ul Critically high 1.4-6.5 [facility] Comment on above: Performed By: #### C MP, LIPA #### [facility] [address] [place] [address] Dr. Calin Marshall Neutrophils/100 WBC (Bld) 74.1 % Normal 43.0-75.0 [facility] Comment on above: Performed By: #### C MP, LIPA #### [facility] [address] [place] [address] Dr. Calin Marshall Platelet mean volume (Bld) [Entitic vol] 9.6 fL Normal 9.5-13.5 [facility] Comment on above: Performed By: #### C MP, LIPA #### [facility] [address] [place] [address] Dr. Calin Marshall PLT 415 103/ul Normal 150-450 [facility] Comment on above: Performed By: #### C MP, LIPA #### [facility] [address] [place] [address] Dr. Calin Marshall RBC 4.69 106/ul Normal 4.20-5.40 [facility] Comment on above: Performed By: #### C MP, LIPA #### [facility] [address] [place] [address] Dr. Calin Marshall WBC 17.3 103/ul Critically high 4.0-11.0 [facility] Comment on above: Performed By: #### C BLADIMIR BRIDGES #### [facility] [address] [place] [address] Dr. Calin Marshall CULTURE URINEon 07-08-2022 CULTURE URINE Culture Observations : MODERATE GROWTH OF MIXED GENITAL MARIO. NO POTENTIAL PATHOGENS SEEN. Normal [facility] Comment on above: Performed By: #### R UBIGG #### [facility] [address] [place] [address] Dr. Calin Marshall ER URINE PROFILEon Bilirubin Ql (U) Negative Normal NEGATIVE [facility] Comment on above: Performed By: #### Ivan FRAUSTO UMICRO #### [facility] [address] [place] [address] Dr. Calin Marshall Clarity (U) CLEAR Normal CLEAR [facility] Comment on above: Performed By: #### ELDA ZHOURO #### [facility] [address] [place] [address] Dr. Calin Marshall Color (U) LT. YELLOW Normal YELLOW [facility] Comment on above: Performed By: #### AZUL ZHOUICRO #### [facility] [address] [place] [address] Dr. Calin HANDY A micrscopic examination will be performed if indicated. Normal [facility] Comment on above: Performed By: #### Ivan FRAUSTO UMICRO #### [facility] [address] [place] [address] Dr. Calin Marshall Glucose Ql (U) Negative Normal NEGATIVE [facility] Comment on above: Performed By: #### Ivan FRAUSTO UMICRO #### [facility] [address] [place] [address] Dr. Calin Marshall Hemoglobin Ql (U) SMALL Abnormal NEGATIVE [facility] Comment on above: Performed By: #### Ivan FRAUSTO UMICRO #### [facility] [address] [place] [address] Dr. Calin Marshall Ketones Ql (U) 15 mg/dl Abnormal NEGATIVE [facility] Comment on above: Performed By: #### Ivan FRAUSTO UMICRO #### [facility] [address] [place] [address] Dr. Calin Marshall LEUKOCYTES Negative Normal NEGATIVE [facility] Comment on above: Performed By: #### Ivan FRAUSTO, UMICRO #### [facility] [address] [place] [address] Dr. Calin Marshall Nitrite Ql (U) Negative Normal NEGATIVE [facility] Comment on above: Performed By: #### Ivan FRAUSTO UMICRO #### [facility] [address] [place] [address] Dr. Calin Marshall pH (U) 6.0 [pH] Normal 5-9 [facility] Comment on above: Performed By: #### Ivan FRAUSTO UMICRO #### [facility] [address] [place] [address] Dr. Calin Marshall SPEC GRAVITY <=1.005 Abnormal 1.005-<=1.025 [facility] Comment on above: Performed By: #### Ivan FRAUSTO UMICRO #### [facility] [address] [place] [address] Dr. Calin Marshall UA PROTEIN Negative Normal NEGATIVE/ TRACE [facility] Comment on above: Performed By: #### Ivan FRAUSTO UMICRO #### [facility] [address] [place] [address] Dr. Calin Marshall UR MICRO IND INDICATED Normal [facility] Comment on above: Performed By: #### Ivan FRAUSTO UMICRO #### [facility] [address] [place] [address] Dr. Calin Marshall Urobilinogen Qn (U) 0.2 {Bridger'U}/dL Normal 0.2 - 1. 0 [facility] Comment on above: Performed By: #### Ivan FRAUSTO, UMICRO #### [facility] [address] [place] [address] Dr. Calin Marshall PROF 14(COMP METB)on 022 Albumin [Mass/Vol] 4.4 g/dL Normal 3.4-5.0 [facility] Comment on above: Performed By: #### C MP, LIPA #### [facility] [address] [address] [address] Calin Marshall Albumin/Globulin [Mass ratio] 1.0 {ratio} Normal [facility] Comment on above: Performed By: #### C MP, LIPA #### [facility] [address] [address] [address] Calin Marshall ALP [Catalytic activity/Vol] 93 U/L Normal 46-116 [facility] Comment on above: Performed By: #### C MP, LIPA #### [facility] [address] [address] [address] Calin Marshall ALT [Catalytic activity/Vol] 34 U/L Normal 14-59 [facility] Comment on above: Performed By: #### C MP, LIPA #### [facility] [address] [address] [address] Calin Marshall Anion gap [Moles/Vol] 17.3 mmol/L [facility] Comment on above: Performed By: #### C MP, LIPA #### [facility] [address] [address] [address] Calin Marshall AST [Catalytic activity/Vol] 21 U/L Normal 15-37 [facility] Comment on above: Performed By: #### C MP, LIPA #### [facility] [address] [address] [address] Calin Marshall Bilirubin [Mass/Vol] 0.6 mg/dL Normal 0.2-1.0 [facility] Comment on above: Performed By: #### C MP, LIPA #### [facility] [address] [address] [address] Calin Marshall Calcium [Mass/Vol] 10.7 mg/dL Critically high 8.5-10.1 [facility] Comment on above: Performed By: #### C MP, LIPA #### [facility] [address] [address] [address] Calin Marshall Chloride [Moles/Vol] 96 mmol/L Critically low 98-107 [facility] Comment on above: Performed By: #### C MP, LIPA #### [facility] [address] [place] [address] Dr. Calin Marshall CO2 [Moles/Vol] 23.1 mmol/L Normal 21.0-32.0 [facility] Comment on above: Performed By: #### C MP, LIPA #### [facility] [address] [place] [address] Dr. Calin Marshall Creatinine [Mass/Vol] 0.83 mg/dL Normal 0.55-1.02 [facility] Comment on above: Performed By: #### C MP, LIPA #### [facility] [address] [place] [address] Dr. Calin Marshall EGFR-AF BAHRAINI >60 Normal >=60 [facility] Comment on above: Performed By: #### C MP, LIPA #### [facility] [address] [place] [address] Dr. Calin Marshall EGFR-NON AF BAHRAINI >60 Normal >=60 [facility] Comment on above: Performed By: #### C MP, LIPA #### [facility] [address] [place] [address] Dr. Calin Marshall Globulin (S) [Mass/Vol] 4.4 g/dL Normal [facility] Comment on above: Performed By: #### C MP, LIPA #### [facility] [address] [place] [address] Dr. Calin Marshall Glucose [Mass/Vol] 98 mg/dL Normal 74-106 [facility] Comment on above: Performed By: #### C MP, LIPA #### [facility] [address] [place] [address] Dr. Calin Marshall Potassium [Moles/Vol] 3.4 mmol/L Critically low 3.5-5.1 [facility] Comment on above: Performed By: #### C MP, LIPA #### [facility] [address] [place] [address] Dr. Calin Marshall Protein [Mass/Vol] 8.8 g/dL Critically high 6.4-8.2 [facility] Comment on above: Performed By: #### C YULIANA, LIPA #### [facility] [address] [place] [address] Dr. Calin Marshall Sodium [Moles/Vol] 133 mmol/L Critically low 136-145 [facility] Comment on above: Performed By: #### C YULIANA, LIPA #### [facility] [address] [place] [address] Dr. Calin Marshall Urea nitrogen [Mass/Vol] 8.0 mg/dL Normal 7.0-18.0 [facility] Comment on above: Performed By: #### C YULIANA, LIPA #### [facility] [address] [place] [address] Dr. Calin Marshall Urea nitrogen/Creatinine [Mass ratio] 9.6 mg/mg Normal [facility] Comment on above: Performed By: #### C YULIANA, LIPA #### [facility] [address] [place] [address] Dr. Calin Marshall URINE MICROSCOPIC ONLYon BACTERIA SMALL Abnormal NONE SEEN [facility] Comment on above: Performed By: #### Ivan FRAUSTO UMICRO #### [facility] [address] [place] [address] Dr. Calin Marshall Bacteria identified Cx Nom (U) INDICATED Normal [facility] Comment on above: Performed By: #### Ivan FRAUSTO UMICRO #### [facility] [address] [place] [address] Dr. Calin Marshall CAST NONE SEEN Normal NONE SEEN [facility] Comment on above: Performed By: #### Ivan FRAUSTO UMICRO #### [facility] [address] [place] [address] Dr. Calin Marshall Crystals LM Nom (Urine sed) NONE SEEN Normal NONE SEEN [facility] Comment on above: Performed By: #### E RUR, UMICRO #### [facility] [address] [place] [address] Dr. Calin Marshall Epithelial cells LM Ql (Urine sed) MODERATE Abnormal NONE SEEN /RARE [facility] Comment on above: Performed By: #### E RUR, UMICRO #### [facility] [address] [address] [address] Calin Marshall MUCOUS NONE SEEN Normal NONE SEEN [facility] Comment on above: Performed By: #### E RUR, UMICRO #### [facility] [address] [address] [address] Calin Marshall RBC 2-5 Abnormal 0-2 [facility] Comment on above: Performed By: #### E RUR, UMICRO #### [facility] [address] [address] [address] Calin Marshall WBC 2-5 Abnormal NONE SEEN [facility] Comment on above: Performed By: #### E RUR, UMICRO #### [facility] [address] [address] [address] Calin Marshall Vitamin D 25-OHon 08-09-2021 VIT D 25 OH 29 ng/ml Low >29 [facility] [employer] Comment on above: Result Comment: Baylee min D Status Deficiency <20 ng/mL Insufficiency 20-29 ng/mL Optimal 30-100 ng/mL Possible Toxicity >=150 ng/mL Performed By: #### V ITD #### [facility] [address], [place] [id number] [place] 06-15-2020 Consent [id number]:127 Normal [facility] Registrationon 06-15-2020 Registration [id number]:127 Normal [facility] Follow Up (Plastic Surgery)o n 07-17-2019 Follow [...] Surgical History History of Appendectomy History of [place] tooth extraction Family History Family history of [...] Capsule *Vitals Vital Signs Recorded: 17Jul2019 09:48AM Raogcyqnhkf44.2 F, Oral Qkzqoizh606 Pxbaxcdhm73 Height5 ft 2.5 in Aozfva569 lb BMI Kctejtlwof84.2 BSA Calculated1.88 Pain Scale0 Physical Exam Examination reveals some erythema in both sites. I have removed the sutures from the chest incision. We have discussed scar maturation and the use of mederma or scar guard 'Scores and Scales' Signatures Electronically signed by : Vikas Garrido MD,; Jul 17 2019 10:00AM EST (Author) Normal [employer] [facility] 06[facility]25[facility]2019 [facility] Name NATALEE GUERRA Pathologist: BRIAN SHAH DO Date of Procedure: 06/25/2019 Date Received: 06/25/2019 Date Reported 06/27/2019 Submitting Physician: VIKAS GARRIDO MD Location: [facility] [place] Copy To/Referring/Attending : VIKAS GARRIDO MD Other External # FINAL DIAGNOSIS A. RIGHT NECK MASS: -- EPIDERMOID CYST. B. RIGHT CHEST MASS: -- EPIDERMOID CYST. Electronically Signed Out By BRIAN NAEMI, DO/KXN By the signature on this report, [...] 2 central area of specimen tas/06/26/2019 Normal [facility] History and Physical - Surgi [...] Last Updated: 25-Jun-2019 07:07 by Vikas Garrido) [facility] Operative Reports - [place] PREOPERATIVE DIAGNOSIS: Mass of right neck and chest. POSTOPERATIVE DIAGNOSIS: Mass of right neck and chest. PROCEDURE: Excision of mass of right neck and chest. SOLDERER TORCH: Henok Sanchez. ANESTHESIA: MAC. OPERATIVE INDICATIONS: The [...] Vikas Garrido MD EST EST DICTATION NUMBER: [id number] INTERNAL JOB NUMBER: [id number] CC: MIA MCKINLEY Electronic Signatures: Vikas Garrido) (Signed on 25-Jun-2019 09:40) Authored Unsigned, Draft (SYS GENERATED) (Entered on 25-Jun-2019 09:03) Entered Last Updated: 25-Jun-2019 09:40 by Vikas Garrido) Normal [facility] Otheron 06-25-2019 Name NATALEE GUERRA Pathologist: AYALA BENTONate of Procedure: 06/25/2019Date Received: 06/25/2019Date Reported 06/27/2019Submitting Physician: VIKAS GARRIDO [facility]DL[facility] Copy To/Referring/Attending :VIKAS GARRIDO MD Other External [...] Preop Checklist Preop Checklist: Preop Checklist: Arrival [id number] Arrival Time05:51 Procedure Typecyst off neck, right and upper right chest NPO [id number] 23:00 ID Band Onyes Allergy Bandyes Consent Signedpending H&P Completepending Anesthesia Assessment Completedpending EKG Performednot ordered Chest X-Ray Performednot ordered HCG Urine TestComplete negative Chlorhexadine Bath Givennot applicable Nasal Antiseptic Appliednot applicable Hair Washednot applicable Soap and water bath with hair shampoo the night before surgerynot applicable Hat placed on infant prior to transportnot applicable SCD's Appliednot applicable ROJAS Hose Appliednot ordered Denturesnot applicable Prostheticsnot applicable Hearing Aidsnot applicable Valuables Securedpiercings in lip, bilateral breasts and belly button plastic not metal Glasses / Contactsnot applicable Bowel Prepno Cardiovascular Assessment: Commentsdeer to abelion Respiratory Assessment: Breath Soundsdefer to abelino Neurological Assessment: Level of Consciousnessalert, oriented Mobilitymoves all extremities Able to Express Selfyes Age Appropriateyes Emotional Statuscalm Preop Education: Surgical Site Infection Preventionyes Pain Scales and Managementyes Language / Communication: Language / CommunicationEnglish Electronic Signatures: Mary Jaimes (HALEY) (Signed 25-Jun-2019 06:11) Authored: Preop Checklist Last Updated: 25-Jun-2019 06:11 by Mary Jaimes (HALEY) Normal [facility] Patient Profile - Preop v2on 06-24-2019 Patient Profile - Preop v2 Profile: Initial Info: How to be AddressedHailey Spoken Language PreferredEnglish Source of Informationpatient Are you currently using the Personal Electronic Health Record or EnsocareUHCAREno Are you interested in learning more about MYCARE for the management of your healthnot at this time Instructions Givenbring responsible adult as the motorcoach driver (procedure may be cancelled if no motorcoach driver), center location, remove jewerly/piercings, instructed pt that nipple and umbilical piercings must be removed prior to surgery pt states she was told that as long as the lip, bilateral breasts. 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 Substance: Current or Former Substance [...] material; verbal instruction Cultural Considerationsnone Developmental Considerationsnone Judaism Considerationsnone Other learner availableno [place] RiskPatient location auto qualifies him/her for HIGH RISK. Are there any cultural, spiritual, jewish practices/values/needs that are important for us to [...] (RN) (Signed 24-Jun-2019 10:05) Authored: Mary Palacios (HALEY) (Signed 25-Jun-2019 06:08) Authored: Danelle, Additional Information Last Updated: 25-Jun-2019 06:08 by Mary Jaimes (RN) Normal [facility] APTTon 06-21-2019 aPTT Coag (Bld) [Time] 37 s Normal 28 - 38 [facility] Comment on above: Result Comment: THE APTT IS NO LONGER USED FOR MONITORING UNFRACTIONATED HEPARIN THERAPY. FOR MONITORING HEPARIN THERAPY, USE THE HEPARIN ASSAY. Performed By: #### A PTT #### [address] [address] Activated Partial Thrombopla stin Timeon 06-21-2019 aPTT Coag (PPP) [Time] 37 {sec} 28 - 38 [facility] Work Phone: Comment on above: THE APTT IS NO LONGE R USED FOR MONITORING UNFRACTIONATED HEPARIN THERAPY. FOR MONITORING HEPARIN THERAPY, USE THE HEPARIN ASSAY. CBC AND DIFFERENTIALon 06-21 % AUTOMATED IMMATURE GRAN 0.1 % Normal 0.0 - 0.9 [facility] Comment on above: Result Comment: Perc ent differential counts (%) should be interpreted in the context of the absolute cell counts (cells/L). Performed By: #### C BCDF #### [address] [address] Basophils (Bld) [#/Vol] 0.03 10*3/uL Normal 0.00 - 0.10 [facility] Comment on above: Performed By: #### C BCDF #### [address] [place] [address] Eosinophils (Bld) [#/Vol] 0.04 10*3/uL Normal 0.00 - 0.70 [facility] Comment on above: Performed By: #### C BCDF #### [address] [address] Lymphocytes (Bld) [#/Vol] 3.08 10*3/uL Normal 1.20 - 4.80 [facility] Comment on above: Performed By: #### C BCDF #### [address] [address] Monocytes (Bld) [#/Vol] 0.49 10*3/uL Normal 0.10 - 1.00 [facility] Comment on above: Performed By: #### C BCDF #### [address] [address] Neutrophils (Bld) [#/Vol] 5.85 10*3/uL Normal 1.20 - 7.70 [facility] Comment on above: Performed By: #### C BCDF #### [address] [address] Platelets (Bld) [#/Vol] 363 10*3/uL Normal 150 - 450 [facility] Comment on above: Performed By: #### C BCDF #### [address] [address] RBC (Bld) [#/Vol] 4.68 x10E12/L Normal 4.00 - 5.20 [facility] Comment on above: Performed By: #### C BCDF #### [address] [address] WBC (Bld) [#/Vol] 9.5 10*3/uL Normal 4.4 - 11.3 [facility] Comment on above: Performed By: #### C BCDF #### [address] [address] Basophils/100 WBC (Bld) 0.3 % 0.0 - 2.0 [facility] Work Phone: Comment on above: Performed By: #### C BCDF #### [address] [address] Eosinophils/100 WBC (Bld) 0.4 % 0.0 - 6.0 [facility] Work Phone: Comment on above: Performed By: #### C BCDF #### [facility] [address] [place] [address] Erythrocyte distribution width (RBC) [Ratio] 11.9 % See Below [facility] Work Phone: Comment on above: Performed By: #### C BCDF #### [address] [address] Reference Range: 11. 5 - 14.5 Hematocrit (Bld) [Volume fraction] 41.6 % See Below [facility] Work Phone: Comment on above: Performed By: #### C BCDF #### [facility] [address] [place] [address] Reference Range: 36. 0 - 46.0 Hemoglobin (Bld) [Mass/Vol] 13.9 g/dL See Below [facility] Work Phone: Comment on above: Performed By: #### C BCDF #### [facility] [address] [place] [address] Reference Range: 12. 0 - 16.0 Lymphocytes/100 WBC (Bld) 32.4 % See Below [facility] Work Phone: Comment on above: Performed By: #### C BCDF #### [address] [address] Reference Range: 13. 0 - 44.0 MCHC (RBC) [Mass/Vol] 33.4 g/dL See Below [facility] Work Phone: Comment on above: Performed By: #### C BCDF #### [address] [place] [address] Reference Range: 32. 0 - 36.0 MCV (RBC) [Entitic vol] 89 fL 80 - 100 [facility] Work Phone: Comment on above: Performed By: #### C BCDF #### [address] [address] Monocytes/100 WBC (Bld) 5.2 % 2.0 - 10.0 [facility] Work Phone: Comment on above: Performed By: #### C BCDF #### [address] [address] Neutrophils/100 WBC (Bld) 61.6 % See Below [facility] Work Phone: Comment on above: Performed By: #### C BCDF #### [address] [address] Reference Range: 40. 0 - 80.0 [facility] 2018 Albumin [Mass/Vol] 4.8 g/dL Normal 3.4 - 5.0 [facility] Comment on above: Performed By: #### C MP #### [address] [address] ALP [Catalytic activity/Vol] 83 U/L Normal 33 - 110 [facility] Comment on above: Performed By: #### C MP #### [address] [address] ALT [Catalytic activity/Vol] 15 U/L Normal 7 - 45 [facility] Comment on above: Result Comment: Janet ents treated with Sulfasalazine may generate falsely decreased results for ALT. Performed By: #### C MP #### [address] [address] Anion gap [Moles/Vol] 11 mmol/L Normal 10 - 20 [facility] Comment on above: Performed By: #### C MP #### [address] [address] AST [Catalytic activity/Vol] 12 U/L Normal 9 - 39 [facility] Comment on above: Performed By: #### C MP #### [facility] [address] [place] [address] Bilirubin [Mass/Vol] 0.3 mg/dL Normal 0.0 - 1.2 [facility] Comment on above: Performed By: #### C MP #### [facility] [address] [place] [address] Calcium [Mass/Vol] 10.7 mg/dL High 8.6 - 10.3 [facility] Comment on above: Performed By: #### C MP #### [address] [address] Chloride [Moles/Vol] 102 mmol/L Normal 98 - 107 [facility] Comment on above: Performed By: #### C MP #### [address] [address] Creatinine [Mass/Vol] 0.80 mg/dL Normal 0.50 - 1.05 [facility] Comment on above: Performed By: #### C MP #### [address] [address] GFR- AM. >60 Normal >60 [facility] Comment on above: Result Comment: CALC ULATIONS OF ESTIMATED GFR ARE PERFORMED USING THE MDRD STUDY EQUATION FOR THE IDMS-TRACEABLE CREATININE METHODS. CLIN CHEM 2007;53:766-72 Performed By: #### C MP #### [facility] [address] [place] [address] GFR-NON AM. >60 Normal >60 [facility] Comment on above: Performed By: #### C MP #### [address] [address] Glucose [Mass/Vol] 82 mg/dL Normal 74 - 99 [facility] Comment on above: Performed By: #### C MP #### [address] [address] HCO3 (Bld) [Moles/Vol] 26 mmol/L Normal 21 - 32 [facility] Comment on above: Performed By: #### C MP #### [address] [address] Potassium [Moles/Vol] 4.1 mmol/L Normal 3.5 - 5.3 [facility] Comment on above: Performed By: #### C MP #### [facility] [address] [place] [address] Protein [Mass/Vol] 8.2 g/dL Normal 6.4 - 8.2 [facility] Comment on above: Performed By: #### C MP #### [address] [address] Sodium [Moles/Vol] 135 mmol/L Low 136 - 145 [facility] Comment on above: Performed By: #### C MP #### [address] [address] Urea nitrogen [Mass/Vol] 16 mg/dL Normal 6 - 23 [facility] Comment on above: Performed By: #### C MP #### [address] [address] Complete Blood Count + Diffe [facility] 06-21-2019 Basophils (Bld) [#/Vol] 0.03 {x10E9/L} See [...] QUALITATIVEon 06-09 HCG,SERUM QUALITATIVE Negative Normal Negative [facility] Comment on above: Performed By: #### H CGS #### [address] [address] Hematologyon 06-21-2019 INR Coag (PPP) [Relative time] [...] time] 1.1 {INR} Normal 0.9 - 1.1 [facility] Comment on above: Performed By: #### P TINR #### [facility] [address] [place] [address] PT Coag (PPP) [Time] 12.3 s Normal 9.7 - 12.7 [facility] Comment on above: Performed By: #### P TINR #### [facility] [address] [place] [address] Vital Signs Date Time Vital Sign Value Performing Clinician Facility 02-26-2023 08:42-0400 Body temperature 97.6 [degF] PHYSICIAN NO [facility] 02-26-2023 08:42-0400 Diastolic blood pressure 90 mm[Hg] PHYSICIAN NO [facility] 02-26-2023 08:42-0400 Heart rate 89 /min PHYSICIAN NO [facility] 02-26-2023 08:42-0400 Respiratory rate 16 /min PHYSICIAN NO [facility] 02-26-2023 08:42-0400 SaO2% (BldA) [Mass fraction] 100 % PHYSICIAN NO [facility] 02-26-2023 08:42-0400 Systolic blood pressure 135 mm[Hg] PHYSICIAN NO [facility] 02-23-2023 09:26-0400 Body height 154.94 cm PHYSICIAN NO [facility] 02-23-2023 09:26-0400 Body weight 81.64 kg PHYSICIAN NO [facility] 10-07-2022 03:06-0400 Body weight 80.[address] RACHID GLEZ . [facility] Comment on above: Performed By: #### AFPMAT #### [facility] [address] [place] [address] Dr. Calin Marshall 07-17-2019 11:48-0500 BMI (Body Mass Index) 34.2 kg/m2 Vikas Jeremiah [facility] Work Phone: 07-17-2019 11:48-0500 Body Temperature 99.2 [degF] Vikas Jeremiah [facility] Work Phone: Comment on above: Method: Oral 07-17-2019 11:48-0500 Body weight 86.18 kg Vikas Jeremiah [facility] Work Phone: 07-17-2019 11:48-0500 BP Diastolic 92 mm[Hg] Vikas Jeremiah [facility] Work Phone: 07-17-2019 11:48-0500 BP Systolic 150 mm[Hg] Vikas Jeremiah [facility] Work Phone: 07-17-2019 11:48-0500 BSA (Body Surface Area) 1.88 m2 Vikas Jeremiah [facility] Work Phone: 07-17-2019 11:48-0500 Height 158.75 cm Vikas Jeremiah [facility] Work Phone: 07-17-2019 11:48-0500 0 1 Vikas Jeremiah [facility] Work Phone: Comment on above: Pain Scale 06-21-2019 11:01-0500 BMI (Body Mass Index) 32.94 kg/m2 Vikas Jeremiah [facility] Work Phone: 06-21-2019 11:01-0500 Body weight 83.01 kg Vikas Garrido [facility] Work Phone: 06-21-2019 11:01-0500 BP Diastolic 80 mm[Hg] Vikas Garrido [facility] Work Phone: Comment on above: Location: [facility]; Position: Sitting 06-21-2019 11:01-0500 BP Systolic 138 mm[Hg] Vikas Garrido [facility] Work Phone: Comment on above: Location: [facility]; Position: Sitting 06-21-2019 11:01-0500 BSA (Body Surface Area) 1.85 m2 Vikas Garrido [facility] Work Phone: 06-21-2019 11:01-0500 Height 158.75 cm Vikas Garrido [facility] Work Phone: 06-21-2019 11:01-0500 0 1 Vikas Garrido [facility] Work Phone: Comment on above: Pain Scale Encounters Encounter Date Encounter Type Care Provider Facility Start: 11-30-2023 End: 11-30-2023 Evaluation and management of inpatient JUDI Moreno [facility] Start: 11-30-2023 End: 11-30-2023 Evaluation and management of inpatient [facility] Start: 11-29-2023 End: 11-29-2023 ambulatory [facility] Start: 11-22-2023 End: 11-22-2023 ambulatory [facility] Start: 02-27-2023 End: 02-27-2023 ambulatory Celestina Warnadira Facility:[facility] Start: 02-27-2023 End: 02-27-2023 ambulatory PHYSICIAN NO [facility] Work Phone: Start: 02-27-2023 End: 02-27-2023 Patient encounter procedure PHYSICIAN NO [facility]- Visit Work Phone: Start: 02-23-2023 End: 02-26-2023 Evaluation and management of inpatient Diana Nataprawira Facility:[facility] Start: 02-23-2023 End: 02-26-2023 Evaluation and management of inpatient PHYSICIAN NO [facility] Work Phone: Start: 01-31-2023 End: 01-31-2023 ambulatory PHYSICIAN NO Facility:[facility] Start: 01-31-2023 End: 01-31-2023 ambulatory DO Diana Nataprawira Work Phone: [facility] Work Phone: Start: 01-31-2023 End: 01-31-2023 Departed Referred DO Diana Nataprawira Work Phone: [facility] [place] Work Phone: Start: 10-19-2022 End: 10-20-[address] RACHID GLEZ . Facility:[facility] Start: 10-05-2022 End: 10-06-[address] RACHID GLEZ . Facility:[facility] Start: 09-07-2022 Encounter for gynecological examination (general) (routine) without abnormal findings DR RACHID GLEZ . [facility] Start: 09-05-2022 End: 09-05-[address] [...] 07-17-2019 Patient encounter procedure Vikas Garrido [facility] Work Phone: Start: 06-21-2019 Patient encounter procedure Vikas Garrido [facility] Work Phone: Patient encounter status Mia Mckinley [facility] Work Phone: Procedures Date Procedure Procedure Detail Performing Clinician Start: 02-23-2023 Antibody screen PHYSICI AN NO FAMILY Comment on above: Result Comment: PERF ORMED BY: [facility] [address] [place] [address] PATHOLOGIST MANAGER APPLICATION FLORY JAIN M.D. Start: 02-23-2023 Urine culture PHYSICIAN NO FAMILY Start: 01-31-2023 Group B Streptococcus Culture PHYSICIAN NO FAMILY Start: 06-21-2019 Thromboplastin time partial plasma/whole blood Vikas Garrido Start: 06-21-2019 Follow-up visit Appendectomy Vikas Garrido Extraction of wisdom tooth [place] Jeremiah H/O: section S/P PHYSI LELE NO FAMILY Plan of Treatment Date Care Activity Detail Author Start: 02-26-2023 [facility] Start: 02-24-2023 Hospital admission [facility] Start: 01-31-2023 Following clinical pathway protocol [facility] Start: 01-31-2023 Group B Streptococcus Culture Group B Streptococcus Culture [facility] Patient Education Post- Di reynaldo Instructions ([facility]) [facility] Work Phone: Patient referral [facility] Work Phone: Immunizations Immunization Date Immunization Notes Care Provider Fa john 02-24-2023 tetanus toxoid, redu ramila diphtheria toxoid, and acellular pertussis vaccine, adsorbed PHYSICIAN NO FAMILY [facility] Payers Date Payer Category Payer Unknown [id number] 1995 Unknown [id number] 2.16.84 [id number] 1993 Unknown [id number] 2.16.84 0.1.186166.3.579.2.593 1993 Unknown [id number] 2.16.84 0.1.353672.3.579.2.593 1993 Unknown [id number] 2.16.84 0.1.652388.3.579.2.593 1993 Unknown [id number] 2.16.84 0.1.739655.3.579.2.593 1993 Unknown [id number] 2.16.84 0.1.984956.3.579.2.593 1993 Unknown [id number] 2.16.84 0.1.999841.3.579.2.593 1993 Unknown [id number] 2.16.84 0.1.993073.3.579.2.593 1993 Unknown [id number] 2.16.8 40.1.496059.3.579.2.1286 1993 Unknown [id number] 2.16.8 40.1.889789.3.579.2.1286 1993 Unknown [id number] 2.16.8 40.1.012637.3.579.2.1286 1993 Unknown [id number] 2.16.8 40.1.715095.3.579.2.1286 1993 Unknown [id number] 2.16.8 40.1.174115.3.579.2.1286 1993 Unknown [id number] 2.16.8 40.1.273882.3.579.2.128 1993 Unknown [id number] 2.16.8 40.1.450013.3.579.2.1286 1993 Unknown [id number] 2.16.8 40.1.894773.3.579.2.1286 1959 Self-pay 1959 Unknown [id number] 1959 Unknown [id number] Unknown [id number] 2.16.84 0.1.812938.3.579.2.593 Unknown HCAP/HFA/FAP Active [id number] Unknown [id number] 2.16.8 40.1.936524.3.579.2.531 Unknown [id number] 2.16.8 40.1.627552.3.579.2.531 Unknown [id number] 2.16.8 40.1.146015.3.579.2.531 Social History Date Type Detail Facility Start: 1995 Sex Assigned At Female F [facility] Start: 02-23-2023 Tobacco smoking status NHIS Never smoked tobacco (finding) [facility] NEGATED: Highlighted row - - [facility] Work Phone: Goals Date Patient Goal Desired Activity /State Functional Status Date Assessment Result Facility 02-26-2023 Functional status Patient at Baseline [facility] Work Phone: NEGATED: Highlighted row Functional performance Functional status health issues are not documented Disease [facility] Work Phone: Mental Status Date Assessment Result Facility 02-26-2023 Cognitive function Cognitive Sta tus Patient at Baseline [facility] Work Phone: NEGATED: Highlighted row Cognitive function [Interpretation] Cognitive status health issues are not documented Disease [facility] Work Phone: Progress note 02-26-2023 Note Date & Type Note Facility 02-26-2023 Progress note Note Date/Time February 26, 2023 9:01am [facility] [address] [place] [id number] 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 Feels much better today, no gas pains. Tolerating PO well, passing flatus Patient comments: pain well controlled, tolerating diet, flatus present (flatus present, no BM) and other; no incisional pain [place] baby status: doing well [place] feeding status: exclusively breast feeding OB - [...] % (Auto) 78.0, Lymph % (Auto) 14.7, [place] % (Auto) 6.6, Eos % (Auto) 0.3, Baso % (Auto) 0.4, Nucleat RBC Rel Count 0.0, Neut# (Auto) 12.2 H, Lymph # (Auto) 2.3, [place] # (Auto) 1.0 H, Eos # (Auto) [...] signed by Mitra Degroot DO> 02/26/23 0901 [facility] Work Phone: Progress note 02-25-2023 Note Date & Type Note Facility 02-25-2023 Progress note Note Date/Time February 25, 2023 9:32am [facility] [address] [place] [address] 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 Patient: Natalee Guerra MR#: [id number] : 1995 Acct:[id number] Age/Sex: 27 / F Adm Date: 3 Loc: 3S Room: [address] [place] [address] Type: ADM IN Attending Dr: Diana Sorenson [...] night) and flatus present; no incisional pain [place] baby status: doing well [place] feeding status: exclusively breast feeding OB - [...] % (Auto) 77.7, Lymph % (Auto) 15.8, [place] % (Auto) 6.3, Eos % (Auto) 0.0, Baso % (Auto) 0.2, Nucleat RBC Rel Count 0.0, Neut# (Auto) 15.1 H, Lymph # (Auto) 3.1, [place] # (Auto) 1.2 H, Eos # (Auto) [...] signed by Mitra Degroot DO> 02/25/23 0932 [facility] Work Phone: Progress note 02-24-2023 Note Date & Type Note Facility 02-24-2023 Progress note Note Date/Time February 24, 2023 11:53am [facility] [address] [place] [address] 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 Patient: Natalee Guerra MR#: [id number] : 1995 Acct:[id number] Age/Sex: 27 / F Adm Date: 3 Loc: Room: [address] [place] [address] Type: ADM IN Attending Dr: Diana Sorenson [...] eaten since but has been drinking fluids.) [place] baby status: doing well and nursing well [place] feeding status: exclusively breast feeding OB - [...] % (Auto) 70.6, Lymph % (Auto) 23.1, [place] % (Auto) 5.5, Eos % (Auto) 0.4, Baso % (Auto) 0.4, Nucleat RBC Rel Count 0.0, Neut# (Auto) 9.0 H, Lymph # (Auto) 2.9, [place] # (Auto) 0.7, Eos # (Auto) 0.0, Baso # (Auto) 0.0 02/23/23 09:48: RPR w/Rflx to Titer Non reactive 02/23/23 09:34: Urine Opiates Screen Negative, Ur Barbiturates Screen Negative, Ur Phencyclidine Scrn Negative, Ur Amphetamines Screen Negative, U Benzodiazepines Scrn Negative, Urine Cocaine Screen Negative 02/23/23 09:34: Urine Color Yellow, Urine Appearance Cloudy A, Urine pH 7.0, Ur Specific Lake 1.016, Urine Protein 30 H, Urine Glucose [...] <Electronically signed by CHRISTIANO Kendall> 02/24/23 1153 [facility] Work Phone: Procedure note 02-23-2023 Note Date & Type Note Facility 02-23-2023 Procedure note [facility] Evaluation note Note Date & Type Note Facility Evaluation note No assessment information availa ble [facility] Work Phone: Evaluation note Note Date & Type Note Facility Evaluation note Diagnosis Onset Date delivery delivered acute [facility] Work Phone: Instructions Note Date & Type Note Facility Instructions Name Instructions not documented [facility] Work Phone: Summary Purpose Family History No [...] history of diabetes lily guillaume(V18.0, Z83.3) Status:Active Advance Directives No Advanced Directives Records Found Advance Directive Response Recorded Date/ Time Advance Directives No March 08, 2021 8:48am Procedure Findings Note Post Operative Note: PreOp D iagnosis: mass of RIGHT neck and chest Post- Procedure Diagnosis: same Procedure: 1.excision mass of RIGHT neck and chest 2. 3. 4. 5. Surgeon: Vikas Garrido MD Resident/Fellow/Other Early Education Teacher: trav Estimated Blood Loss (mL): minimal Specimen: [...] section and content) DATE CREATED AUTHOR 07/02/2019 [facility] DATE CREATED AUTHOR AUTHOR'S ORGANIZ ATION 07/17/2019 [employer] DATE CREATED AUTHOR AUTHOR'S ORGANIZ ATION 06/16/2020 [facility] DATE CREATED AUTHOR AUTHOR'S ORGANIZ ATION 08/10/2021 [facility] dical Specialist DATE CREATED AUTHOR AUTHOR'S ORGANIZ ATION 10/24/2022 [facility] DATE CREATED AUTHOR AUTHOR'S ORGANIZ ATION 02/07/2023 [facility] DATE CREATED AUTHOR AUTHOR'S ORGANIZ ATION 03/07/2023 [facility] DATE CREATED AUTHOR AUTHOR'S ORGANIZ ATION 11/30/2023 [facility] DATE CREATED AUTHOR AUTHOR'S MILE CORONADO 12/09/2023 [facility] Care Teams (unrecognized sec tion and content) Team Status: Inactive Member Role Status Dates Diana Sorenson , DO Attending Provider Active Team Status: Active Member Role Status Dates Celestina Ely , COAL SAMPLE TESTER-C Primary Care Provider Active Team Status: Inactive Member Role Status Dates Diana Sorenson , DO Attending Provider Active PHYSICIAN NO FAMILY Primary Care Provider Active Team Status: Inactive Member Role Status Dates Diana Palmaaprawira , DO Admit Provider, Attending Provid er Active Celestina Ely , COAL SAMPLE TESTER-C Primary Care Provider Active Team Status: Inactive Member Role Status Dates Celestina Ely , COAL SAMPLE TESTER-C Primary Care Provider Active Lilia Huber MD [...] BE BASED ON THE PRIMARY CLINICAL RECORDS. [employer] provides no warranty or guarantee of the accuracy or completeness of information in this document.
--- NOTE | 2023-12-12 17:40 | CT_ITS ---
The [address] [address] Patient Name: SILVER ALCOCER MRN: [id number] date: 1995 Sex: F Assigned Patient Location: ED.MAIN Current Patient Location: ED.MAIN Accession/Order Number: [id number] Exam Date: 12/12/2023 19:00 Report Date: 12/12/2023 20:28 At the request of: KARLO NUR Procedure: CT abdomen pelvis w con CT OF THE ABDOMEN AND PELVIS WITH CONTRAST: 12/12/2023 7:00 PM EDT CLINICAL HISTORY: Abdominal pain and vomiting. Prior cholecystectomy with CBD stent placed. COMPARISONS: CT abdomen and pelvis 11/02/2023. TECHNIQUE: Thin section axial CT images were obtained from the lung bases to the pubis symphysis. This CT exam was performed using one or more of the following dose reduction techniques: Automated exposure control, adjustment of the mA and/or kV according to patient size, or use of iterative reconstruction technique. Thin section coronal and sagittal images were reconstructed from the axial data set. All images were reviewed and interpreted. CONTRAST: Omnipaque 300, 100 mL IV without event FINDINGS: LUNG BASES: No consolidation or pleural fluid. LIVER: Normal. GALLBLADDER: Gallbladder is surgically absent. BILIARY TREE: There is a stent in the common bile duct. There is some pneumobilia with air in nondependent left hepatic lobe. There is some fluid and air within region of stent with some focal stent narrowing in the distal CBD proximal to the ampulla. Uncertain etiology of narrowing. Possible stricture. PANCREAS: No obvious pancreatic mass. No pancreatic duct dilation. SPLEEN: Normal. ADRENALS: Normal. KIDNEYS: Normal, without urolithiasis or hydronephrosis. URINARY BLADDER: Grossly unremarkable. PELVIC STRUCTURES: Unremarkable. Reproductive organs are unremarkable. BOWEL: No evidence of obstruction, gross mass, or inflammatory change. There is no significant diverticulosis. There is no evidence of diverticulitis. Trace nonspecific fluid within nondilated distal small bowel loops and cecum and ascending large bowel. Typical stool distal large bowel. APPENDIX: Negative. LYMPH NODES: No pathologically enlarged lymph nodes identified. PERITONEUM: No intraperitoneal free air. No free intraperitoneal fluid. MESENTERY: Unremarkable. RETROPERITONEUM: The retroperitoneum is unremarkable. AORTA: Normal in caliber. BODY WALL: No body wall mass. OSSEOUS STRUCTURES: No destructive osseous lesion or displaced fracture. CT/CT abdomen pelvis w con IMPRESSION: 1. Status post recent cholecystectomy and placement of common bile duct stent. There is some pneumobilia in the left hepatic lobe from stent placement. There is some focal narrowing in region of the distal common bile duct and stent just proximal to the ampulla of uncertain etiology. No pancreatic duct dilation or obvious pancreatic mass. No overt intrahepatic bile duct distention. 2. Nonspecific trace fluid in nondilated distal small bowel and cecal region. No obvious bowel wall thickening or evidence of bowel obstruction. Electronically authenticated by: RENU ZHAO Date: 12/12/2023 20:28
--- NOTE | 2023-12-12 17:46 | ED_ITS ---
HPI HPI - General Adult General Chief complaint: Nausea/Vomiting/Diarrhea Stated complaint: POSTOPERATIVE COMPLICATION Time Seen by Provider: 12/12/23 17:39 Source: patient Mode of arrival: Wheelchair History of Present Illness HPI narrative: Patient is a 28-year-old female who presents to the emergency department for the evaluation of jaundice, increased right upper quadrant abdominal pain, nausea and vomiting that began yesterday. She states that she had her gallbladder removed approximately 4 weeks ago, she was seen in this emergency department 2 weeks ago for increasing pain and was found to have a retained stone with pancreatitis, she was sent to [facility] at the request of her local general surgeon. She states she had an ERCP done and she is due to have a repeat ERCP next week. She states she called her surgeon and was instructed to drive to [facility] where she was previously hospitalized but she was not able to find a ride to take her to [place] so she came to this facility. She is not concerned for . No medications taken prior to arrival. She denies fevers. Related Data Home Medications ?Medication ?Instructions ?Recorded ?Confirmed No Known Home Medications 12/12/23 12/12/23 Allergies Allergy/AdvReac Type Severity Reaction Status Date / Time amoxicillin AdvReac Mild Hives Verified 11/27/23 02:23 Opioid HPI Opioid Management Most Recent Opioid Data: Last Pain Scale 4 12/12/23 19:26 Last ED Pain Assessment 12/12/23 19:26 Last MAR Pain Assessment 12/12/23 19:42 Review of Systems ROS Constitutional Denies: fever or chills Ears, nose, mouth, and throat Denies: throat pain Cardiovascular Denies: chest pain Respiratory Denies: shortness of breath or cough Gastrointestinal Reports: abdominal pain, nausea and vomiting Musculoskeletal Denies: back pain Integumentary/Breast Denies: rash Neurological Denies: headache Hematologic/Lymphatic Denies: easy bruising or easy bleeding Exam Narrative Exam Narrative: Gen.: Awake, alert, in no distress Head: Normocephalic, atraumatic ENT: Moist mucous membranes, Scleral icterus noted Respiratory: No respiratory distress, lungs clear bilaterally Cardio: Tachycardia Gastrointestinal: Abdomen is soft, diffusely tender to palpation, no guarding or rebound. Moderate tenderness in the right upper quadrant. Healing ecchymosis of the abdominal wall with healing laparoscopic incisions of the abdominal wall. Extremities: Moves extremities equally Psych: Normal mood and affect Neuro: No focal neuro deficit Skin: Warm, dry, intact Constitutional Vital Signs, click to edit/add: Last Vital Signs Temp 100 F 12/12/23 20:19 Pulse 105 H 12/12/23 20:19 Resp 16 12/12/23 20:19 BP 111/66 12/12/23 20:19 Pulse Ox 94 L 12/12/23 20:19 O2 Del Method Room Air 12/12/23 20:19 Course Vital Signs Vital signs: Vital Signs Temperature 99.0 F 12/12/23 16:10 Pulse Rate 123 H 12/12/23 16:10 Respiratory Rate 18 12/12/23 16:10 Blood Pressure 130/76 12/12/23 16:10 Pulse Oximetry 98 12/12/23 16:10 Oxygen Delivery Method Room Air 12/12/23 16:10 Temperature 100 F 12/12/23 20:19 Pulse Rate 105 H 12/12/23 20:19 Respiratory Rate 16 12/12/23 20:19 Blood Pressure 111/66 12/12/23 20:19 Pulse Oximetry 94 L 12/12/23 20:19 Oxygen Delivery Method Room Air 12/12/23 20:19 Medical Decision Making MDM Narrative Medical decision making narrative: On arrival to the emergency department, there was a delay in obtaining a bed for this patient. When she was able to be placed in a room, an IV was established, she was placed on cardiac monitoring and sepsis labs were obtained. She was found to have a 30,000 white count with mild hyponatremia, stable kidney function and continued elevated bilirubin, total and direct as well as LFTs. Lipase is normal. Lactic acid is normal but procalcitonin is mildly elevated. INR is 1.18. CT shows postsurgical changes with common bile stent and pneumobilia, no other evidence of abscess. [facility] was contacted as the patient was recently hospitalized there and is due to have another procedure. Dr. Hawk Requested the patient be kept n.p.o. after midnight with continued antibiotics and his service will see the patient tomorrow for GI. Patient is stable at time of transfer to [facility], excepted by RUMA Lorenzana for hospitalist service on behalf of Dr. Deleon. Critical care time 35 minutes Medical Records Medical records reviewed: Yes I reviewed the patient's medical records Lab Data Lab results reviewed: Yes I reviewed the patient's lab results Labs: Lab Results 12/12/23 Range/Units 17:48 WBC 30.4 H* (4.0-11.0) 10^3/uL RBC 4.56 (4.20-5.40) 10^6/uL Hgb 13.5 (12.0-16.0) g/dL Hct 40.2 (36.0-48.0) % MCV 88.2 (81.0-99.0) fL MCH 29.6 (26.7-34.0) pg MCHC 33.6 (29.9-35.2) g/dL RDW 14.4 (11.0-15.0) % Plt Count 389 (150-450) 10^3/uL MPV 10.2 (9.5-13.5) fL Seg Neuts % (Manual) 91.0 Lymphocytes % (Manual) 6.0 L (20.5-60.0) % Monocytes % (Manual) 3.0 (1.7-12.0) % Eosinophils % (Manual) 0.0 L (0.9-7.0) % Basophils % (Manual) 0.0 L (0.2-2.0) % Neutrophils # (Manual) 27.66 H (1.4-6.5) 10^3/uL Lymphocytes # (Manual) 1.82 (1.20-3.80) 10^3/uL Monocytes # (Manual) 0.91 H (0.30-0.80) 10^3/uL Eosinophils # (Manual) 0.00 (0.00-0.70) 10^3/uL Basophils # (Manual) 0.00 (0.00-0.10) 10^3/uL PT 12.3 H (9.0-11.6) sec INR 1.18 VBG pH 7.608 H (7.330-7.430) VBG pCO2 19.2 L (40.0-52.0) mmHg Sodium 129 L (136-145) mmol/L Potassium 3.8 (3.5-5.1) mmol/L Chloride 95 L (98-107) mmol/L Carbon Dioxide 19.1 L (21.0-32.0) mmol/L Anion Gap 18.7 BUN 13.0 (7.0-18.0) mg/dL Creatinine 1.02 (0.55-1.02) mg/dL Est GFR ( Amer) >60 (>=60) Est GFR (Non-Af Amer) >60 (>=60) BUN/Creatinine Ratio 12.7 Glucose 89 (74-106) mg/dL Lactate 1.7 (0.4-2.0) mmol/L Calcium 10.8 H (8.5-10.1) mg/dL Total Bilirubin 4.4 H (0.2-1.0) mg/dL Direct Bilirubin 3.1 H* (0.0-0.2) mg/dL AST 527 H* (15-37) U/L ALT 1329 H* (14-59) U/L Alkaline Phosphatase 773 H (46-116) U/L Total Protein 8.8 H (6.4-8.2) g/dL Albumin 3.9 (3.4-5.0) g/dL Globulin 4.9 g/dL Albumin/Globulin Ratio 0.8 Lipase 68.0 (16.0-77.0) U/L Procalcitonin 2.82 H (0.00-0.50) ng/mL Serum HCG, Qual Negative (NEGATIVE) Imaging Data CT scan - abdomen: Attestation: I have reviewed the pertinent imaging results. Radiologist's impression: ITS Impressions Abdomen/Pelvis CT 12/12/23 17:40 IMPRESSION: 1. Status post recent cholecystectomy and placement of common bile duct stent. There is some pneumobilia in the left hepatic lobe from stent placement. There is some focal narrowing in region of the distal common bile duct and stent just proximal to the ampulla of uncertain etiology. No pancreatic duct dilation or obvious pancreatic mass. No overt intrahepatic bile duct distention. 2. Nonspecific trace fluid in nondilated distal small bowel and cecal region. No obvious bowel wall thickening or evidence of bowel obstruction. Electronically authenticated by: RENU ZHAO Date: 12/12/2023 20:28 Discharge Plan Discharge Chief Complaint: Nausea/Vomiting/Diarrhea Clinical Impression: Abdominal pain, Elevated LFTs, Elevated bilirubin, Fever Patient Disposition: [facility] Time of Disposition Decision: 21:45 Discharge location: [facility] Mode of Transportation: EMS Prescriptions / Home Meds: No Action No Known Home Medications Print Language: Salvadorean Referrals: ANUP BRUCE [Primary Care Provider] - 1 week
[2023-12-12] MEDS: 0.9 % SODIUM CHLORIDE 1,000 ML 999 ML IV (17:51)
[2023-12-12 17:57] LABS: Hematocrit 40.2 % (36.0-48.0); Hemoglobin 13.5 g/dL (12.0-16.0); Mean Corpuscular HGB Conc 33.6 g/dL (29.9-35.2); Mean Corpuscular Hemoglobin 29.6 pg (26.7-34.0); Mean Corpuscular Volume 88.2 fL (81.0-99.0); Mean Platelet Volume 10.2 fL (9.5-13.5); Platelet Count 389 10^3/uL (150-450); Red Blood Count 4.56 10^6/uL (4.20-5.40); Red Cell Distribution Width 14.4 % (11.0-15.0)
[2023-12-12 17:58] LABS: PCO2 VBG 19.2 mmHg (40.0-52.0); pH VBG 7.608 (7.330-7.430)
[2023-12-12 17:59] LABS: White Blood Count 30.4 10^3/uL (4.0-11.0)
[2023-12-12 18:05] LABS: HCG Qualitative NEGATIVE (NEGATIVE)
[2023-12-12] MEDS: HYDROMORPHONE HCL 1 MG/ML CARTRIDGE IVP (18:06)
[2023-12-12] MEDS: ONDANSETRON PF 4 MG/2 ML VIAL IV (18:06)
[2023-12-12 18:10] LABS: INR 1.18; Prothrombin Time 12.3 sec (9.0-11.6)
[2023-12-12 18:16] LABS: Lactate/Lactic Acid 1.7 mmol/L (0.4-2.0)
[2023-12-12 18:23] LABS: Albumin Globulin Ratio 0.8; Albumin Level 3.9 g/dL (3.4-5.0); Alkaline Phosphatase 773 U/L (46-116); Anion Gap 18.7; BUN Creatinine Ratio 12.7; Bilirubin Total 4.4 mg/dL (0.2-1.0); Calcium 10.8 mg/dL (8.5-10.1); Carbon Dioxide 19.1 mmol/L (21.0-32.0); Chloride 95 mmol/L (98-107); Estimated GFR (African America >60 (>=60); Estimated GFR (Non-African Ame >60 (>=60); Globulin 4.9 g/dL; Glucose 89 mg/dL (74-106); Potassium 3.8 mmol/L (3.5-5.1); Sodium 129 mmol/L (136-145); Total Protein 8.8 g/dL (6.4-8.2)
[2023-12-12] MEDS: CEFTAZIDIME 2,000 MG in 0.9 % SODIUM CHLORIDE 100 ML 200 MG IV (18:29)
[2023-12-12] MEDS: 0.9 % SODIUM CHLORIDE 1,000 ML 125 ML IV (18:38)
[2023-12-12 18:45] LABS: Aspartate Amino Transferase 527 U/L (15-37); Bilirubin Direct 3.1 mg/dL (0.0-0.2)
[2023-12-12 18:46] LABS: Alanine Aminotransferase 1329 U/L (14-59)
[2023-12-12 18:48] LABS: PROCALCITONIN 2.82 ng/mL (0.00-0.50)
[2023-12-12 18:50] LABS: Lymphocytes Absolute Manual 1.82 10^3/uL (1.20-3.80); Monocytes Absolute Manual 0.91 10^3/uL (0.30-0.80); Segmented Neut Absolute Manual 27.66 10^3/uL (1.4-6.5)
[2023-12-12] MEDS: METRONIDAZOLE/SODIUM CHLORIDE 500 MG/100 ML PREMIX 100 MG IV (19:17)
[2023-12-12] MEDS: KETOROLAC TROMETHAMINE 30 MG/ML VIAL IVP (19:42)
[2023-12-12] MEDS: DIPHENHYDRAMINE HCL 50 MG/ML VIAL 25 MG IV (20:59)
[2023-12-12] MEDS: FAMOTIDINE/PF 20 MG/2 ML VIAL IV (22:34)
[2023-12-13 00:28] VITALS: BP 95/80; PULSE 73; O2SAT 95
[2023-12-13 00:46] VITALS: BP 101/61; PULSE 79; TEMP 36.6; O2SAT 96
[2023-12-13 00:50] VITALS: BP 101/61; PULSE 79; TEMP 36.6; O2SAT 96
--- NOTE | 2023-12-13 01:02 | PC.NURSE ---
Report to Ratna [phone] at [facility]
== END 2023-12-13 01:00 | disposition short-term general hospital (02) ==
PROVIDERS: Physician Assistant; Emergency Provider Emergency Medicine; PCP Nurse Practitioner Family
DX: Z90.49 Acquired absence of other specified parts of digestive tract (principal); R50.9 Fever, unspecified; R79.89 Other specified abnormal findings of blood chemistry; E80.6 Other disorders of bilirubin metabolism; R10.9 Unspecified abdominal pain; R74.01 Elevation of levels of liver transaminase levels
CPT/HCPCS: 36415; 74177; 80048; 80076; 82800; 83605; 83690; 84145; 84703; 85007; 85027; 85610; 87040; 96361; 96365; 96367; 96375; 99284; J1170; Q9967

== ENCOUNTER 2024-02-08 09:37 | Outpatient (OUT) | payer BC, SELFPAY ==
--- OUTSIDE RECORDS SUMMARY | 2024-02-08 09:52 | XMS_ITS | CCD ---
Author Organization [facility] Care Team Providers Care Equal Employment Opportunity Officer Name Role Phone Jeremiah, Vikas Unavailable Unavailable [...] Unavailable JENNIFER, DR JOSEPH Attending Unavailable AICHHOLZ, MANAGER OF COMMUNITY RELATIONS MIA Primary Care Unavailable KARASIK ., DR RASHID Admitting Unavailabl e KARASIK ., DR RASHID Attending Unavailabl e REQUEST, NONE LISTED Primary Care Unavaila ble KARASIK ., DR RASHID Consulting Unavailabl e KARASIK ., DR RASHID Admitting Unavailabl e NEWT[place] ., DR RASHID Attending Unavailabl e [facility] [place] [facility] [place] ELAINE Primary Care Unavailable NEWTON ., DR RASHID Consulting Unavailabl e [place], DR CALDERON Young Consulting Unavailable Nataprawira, DO Diana Attending Provider NO FAMILY, PHYSICIAN Primary Care Provider Unava ilable Nataprawira, DO Diana Admit Provider MUNDO Ely Primary Care Provider MD Lilia Huber Attending Provider [phone] NO FAMILY, PHYSICIAN Primary Care Unavailable Nataprawira, Diana Admitting Unavailable Nataprawira, Diana Attending Unavailable Warchol, Celestina Primary Care Unavailable Lilia Huber Admitting Unavailable Lilia Huber Attending Unavailable Nataprawira, Diana Admitting Unavailable Nataprawira, Diana Attending Unavailable Warchol, Celestina Primary Care Unavailable Unavailable Primary Care Provider Unavailabl e GRTERRAS, HUI E Referring Unavailable NO PCP, NO PCP Primary Care Unavailable DIRKILLIShannen HUI E Referring Unavailable NO PCP, NO PCP Primary Care Unavailable GRILLIS HUI E Admitting Unavailable GRILLIS, HUI E Attending Unavailable GRILLIS, HUI E Referring Unavailable NO PCP, NO PCP Primary Care Unavailable JUDI HUMPHREYS Attending Unavailable NO PCP, NO PCP Primary Care Unavailable NO PCP, NO PCP Primary Care Unavailable GRILLIS HUI E Attending Unavailable NO PCP, NO PCP Primary Care Unavailable TEOABIGAILANUP L Attending Unavailable TEO, ANUP L Primary Care Unavailable TEO, ANUP L Referring Unavailable TEO, ANUP L Primary Care Unavailable Zeenat Herndon CNP Primary Care Provider [phone] Annamarie Ochoa APRN Unavailable Teo DIRECTOR OF INDUSTRIAL RELATIONS - Abigail AGUILARiana L Primary Care Provider MARIE, BRADEN GENARO T Admitting Unavailabl e HAMDANI, BRADEN GENARO T Attending Unavailabl e TEO, ANUP L Primary Care Unavailable SOFIADAMARIO, BRADEN GENARO T Consulting Unavailabl e NI DOLAN Referring Unavailable TEO, ANUP L Primary Care Unavailable AHMAD, SHOWKAT Admitting Unavailable AHMAD, SHOWKAT Attending Unavailable GIROGI MAHMOOD Consulting Unavailable HUI LOCKE Consulting Unavailable NI DOLAN Referring Unavailable FLIP HERNANDEZ Admitting Unavailable FLIP HERNANDEZ Attending Unavailable SHALA PRINCE Referring Unavailable SHALA PRINCE Attending Unavailable ZEENAT HERNDON Primary Care Unavailable DEXTER PALUMBO Referring Unavailable ANUP BRUCE Primary Care Unavailable Allergies Allergy Classification Reported Allergen(s) Allergy Type Date of Onset Reaction(s) Facility Penicillins (antibiotic) (4 sources) Amoxicillin; Translations: [AMOXICILLIN] Drug Allergy 6 Hives, Rash, Other (See Comments) [facility] Repository (17 sources) Amoxicillin; Translations: [Amoxicillin] Drug Allergy 6 Hives, Rash, Other (See Comments) [facility] Repository Medications Current Medications Medication Drug Class(es) Dates Sig (Normalized) Sig (Original) acetaminophen 500 mg oral tablet (2 sources) Start: 3 take 2 tablets by mouth every six hours Acetaminophen (Acetaminophen Extra Strength) 500 mg tablet Active 1000 MG PO Q6H 60 February 23, 2023 12:00am calcium chloride 0.0014 meq/ml / potassium chloride 0.004 meq/ml / sodium chloride 0.103 meq/ml / sodium lactate 0.028 meq/ml injectable solution (1 source) Start: 4 lactated ringers IV soln infusion cholecalciferol, vitamin D3, (VITAMIN D3 ORAL) (5 sources) take 5 mg by mouth once daily cholecalciferol, vitamin D3, (VITAMIN D3 ORAL) Take 5 mg by mouth once daily. 0 Active ciprofloxacin 500 mg oral tablet (1 source) Quinolone Antimicrobial Start: 4 End: 4 take 1 tablet by mouth once daily ciprofloxacin (CIPRO) 500 MG tablet Take 1 tablet by mouth daily for 7 days 7 tablet 0 12/03/2023 12/10/2023 Active 1 ml diphenhydrAMINE hydrochloride 50 mg/ml cartridge (1 source) Histamine-1 Receptor Antagonist Start: 4 diphenhydrAMINE (BENADRYL) injection 25 mg docusate sodium 100 mg oral capsule (2 sources) Start: 3 take 1 capsule by mouth once daily at bedtime Docusate Sodium (Colace) 100 mg capsule Active 100 MG PO Daily at bedtime 30 February 23, 2023 12:00am famotidine (PEPCID) 20 mg in sodium chloride (PF) 0.9 % 10 mL injection (1 source) Start: famotidine (PEPCID) 20 mg in sodium chloride (PF) 0.9 % 10 mL injection 2 ml fentaNYL 0.05 mg/ml injection (1 source) Opioid Agonist Start: fentaNYL (SUBLIMAZE) injection 25 mcg glucagon (rdna) 1 mg injection (1 source) Antihypoglycemic Agent Start: 4 glucagon injection 1 mg 1000 ml glucose 100 mg/ml injection (3 sources) Start: dextrose 10 % infusion Start: 12-02-2023 dextrose bolus 10% 125 mL Start: 12-02-2023 glucose chewab le tablet 16 g 1 ml HYDROmorphone hydrochloride 1 mg/ml cartridge (1 source) Opioid Agonist Start: 12-01-2023 HYDROmorphone (DILAUDID) injection 0.25 mg ibuprofen 600 mg oral tablet (7 sources) Nonsteroidal Anti-inflammatory Drug Start: 02-23-2023 take 600 mg by mouth every six hours Ibuprofen Active 600 MG PO Q6H 60 February 23, 2023 12:00am ibuprofen (MOTRI N) 800 mg tablet Take 800 mg by mouth as needed. 0 Active 10 ml lidocaine hydrochloride 10 mg/ml injection (1 source) Antiarrhythmic, Amide Local Anesthetic Start: 01-15-2024 End: 01-16-2024 lidocaine PF 1 % injection 1 mL 100 ml magnesium sulfate 10 mg/ml injection (1 source) Start: 12-01-2023 magnesium sulf ate 1000 mg in dextrose 5% 100 mL IVPB 2 ml ondansetron 2 mg/ml injection (4 sources) Serotonin-3 Receptor Antagonist Start: 01-15-2024 End: 01-16-2024 ondansetron (ZOFRAN) injection 4 mg Start: 02-23-2023 End: 02-25-2023 take 1 tablet by mouth every six hours Ondansetron (Zofran Odt) 4 mg Tablet,Disintegrating Discontinued 4 MG PO Q6H February 23, 2023 12:00am February 25, 2023 9:36am End: 12-01-2023 take 1 tablet by mouth every eight hours as needed for nausea ondansetron (ZOFRAN) 4 MG tablet Take 1 tablet by mouth every 8 hours as needed for Nausea or Vomiting 0 12/01/2023 Discontinued ondansetron (ZOFRAN-ODT) disintegrating tablet 4 mg (1 source) Start: 12-01-2023 ondansetron (Z OFRAN-ODT) disintegrating tablet 4 mg piperacillin-tazobactam (ZOSYN) 3,375 mg in sodium chloride 0.9 % 50 mL IVPB (mini-bag) (1 source) Start: 12-01-2023 piperacillin-t azobactam (ZOSYN) 3,375 mg in sodium chloride 0.9 % 50 mL IVPB (mini-bag) Pnv,Calcium 58-Rtyj-Urvcl Acid (M-Liza Plus) 27 mg iron- 1 mg tablet (2 sources) Start: 02-23-2023 Pnv,Calcium 49-Kwlp-Kcoum Acid (M-Liza Plus) 27 mg iron- 1 mg tablet Active TAB TABLET February 23, 2023 12:00am polyethylene glycol 3350 07061 mg powder for oral solution (1 source) Osmotic Laxative Start: 12-01-2023 polyethylene glycol (GLYCOLAX) packet 17 g Potassium Chloride (1 source) Start: 12-01-2023 potassium chlo ride (KLOR-CON M) extended release tablet 40 mEq prochlorperazine 5 mg/ml injectable solution (2 sources) Phenothiazine Start: 01-15-2024 End: 01-16-2024 prochlorperazine (COMPAZINE) injection 5 mg Start: 12-01-2023 prochlorperazi ne (COMPAZINE) injection 10 mg sodium bicarbonate 650 mg oral tablet (2 sources) Start: 12-03-2023 End: 12-10-2023 take 1 tablet by mouth twice daily sodium bicarbonate 650 MG tablet Take 1 tablet by mouth 2 times daily for 7 days 14 tablet 0 12/03/2023 12/10/2023 Active sodium bicarbonate 150 mEq in dextrose 5 % 1,000 mL infusion (1 source) Start: 12-02-2023 sodium bicarbo rajinder 150 mEq in dextrose 5 % 1,000 mL infusion 5 ml sodium chloride 9 mg/ml injection (8 sources) Start: 01-15-2024 sodium chlorid e flush 0.9 % injection 5-40 mL Start: 01-15-2024 0.9 % sodium c hloride infusion Start: 01-15-2024 sodium chlorid e flush 0.9 % injection 5-40 mL Start: 12-01-2023 sodium chlorid e flush 0.9 % injection 5-40 mL Start: 12-01-2023 End: 12-03-2023 0.9 % sodium chloride infusi on traMADol hydrochloride 50 mg oral tablet (2 sources) Opioid Agonist Start: 02-25-2023 take 50 mg by mouth every six hours Tramadol Active 50 MG PO Q6H 30 February 25, 2023 12:00am Completed/Discontinued Medications Medication Drug Class(es) Dates Sig (Normalized) Sig (Original) acetaminophen 325 mg / HYDROcodone bitartrate 5 mg oral tablet (1 source) Opioid Agonist End: 12-01-2023 HYDROcodone-acetami nophen (NORCO) 5-325 MG per tablet Take 1 tablet by mouth every 6 hours as needed for Pain. Max Daily Amount: 4 tablets 0 12/01/2023 Discontinued Nexplanon IMPL (6 sources) Progestin Nexplanon IMPL Refills: 0 DO Active Nexplanon IMPL R efills: 0 Active Magnesium (6 sources) Magnesium 500 MG Oral Tablet Refills: 0 DO Active Magnesium 500 MG Oral Tablet Refills: 0 Active sodium phosphate 20 mmol in sodium chloride 0.9 % 500 mL IVPB (2 sources) Start: 12-03-2023 End: 12-03-2023 sodium phosphate 20 mmol in sodium chloride 0.9 % 500 mL IVPB Start: 12-02-2023 End: 12-02-2023 sodium phosphate 20 mmol in sodium chloride 0.9 % 500 mL IVPB tiZANidine 4 mg oral capsule (6 sources) Central alpha-2 Adrenergic Agonist tiZANidine HCl - 4 M G Oral Capsule Refills: 0 Active Problems Active Problems Problem Classification Problem Date Documented Date Episodic/Chronic Biliary tract disease (4 sources) Calculus of bile duct with cholangitis; Translations: [Calculus of bile duct with acute and chronic cholangitis without obstruction] Onset: 12-13-2023 01-15-2024 Chronic Biliary tract disease (3 sources) Calculus of gallbladder with acute cholecystitis without obstruction; Translations: [Calculus of gallbladder with chronic cholecystitis without obstruction] Onset: 11-22-2023 Episodic Calculus of urinary tract (1 source) Calculus of kidney; Translations: [Calculus of kidney] Onset: 11-22-2023 Episodic Fluid and electrolyte disorders (5 sources) Dehydration; Translations: [Metabolic acidosis] Onset: 07-14-2022 12-03-2023 Episodic Headache; including migraine (6 sources) Migraine; Translations: [Migraine, unspecified, without mention of intractable migraine without mention of status migrainosus] Chronic Miscellaneous mental health disorders (1 source) Primary insomnia; Translations: [PRIMARY INSOMNIA] Onset: 11-10-2021 Chronic Nausea and vomiting (8 sources) Nausea with vomiting, unspecified; Translations: [Nausea] Onset: 07-08-2022 Resolved: 12-03-2023 Episodic Other complications of ; puerperium affecting management of mother (2 sources) Deliveries by ; Translations: [Encounter for delivery without indication] 02-24-2023 Episodic Other complications of ; puerperium affecting management of mother (2 sources) Encounter for delivery without indication; Translations: [ delivery, without mention of indication, delivered, with or without mention of antepartum condition] 02-26-2023 Episodic Other liver diseases (4 sources) Enzyme level - finding; Translations: [Transaminitis] Onset: 12-01-2023 12-03-2023 Episodic Other liver diseases (3 sources) Jaundice; Translations: [Unspecified jaundice] Onset: 12-01-2023 12-01-2023 Episodic Other nutritional; endocrine; and metabolic disorders (4 sources) Hyperbilirubinemia; Translations: [Other disorders of bilirubin metabolism] Onset: 12-01-2023 12-03-2023 Chronic Other nutritional; endocrine; and metabolic disorders (3 sources) Hypophosphatemia; Translations: [Other disorders of phosphorus metabolism] Onset: 12-02-2023 12-02-2023 Chronic Other nutritional; endocrine; and metabolic disorders (1 source) Other disorders of bilirubin metabolism; Translations: [Other disorders of bilirubin metabolism] Onset: 12-01-2023 Chronic Other and delivery including normal (13 sources) [...] [Swelling, mass, or lump in chest] Episodic Pancreatic disorders (not diabetes) (7 sources) Other chronic pancreatitis; Translations: [Chronic pancreatitis] Onset: 12-22-2023 01-04-2024 Chronic Residual codes; unclassified (4 sources) Obstructive sleep [...] unspecified; Translations: [Pain, unspecified] Onset: 11-22-2023 Episodic Septicemia (except in labor) (2 sources) Sepsis; Translations: [Sepsis, unspecified organism] Onset: 12-13-2023 12-13-2023 Episodic Spondylosis; intervertebral disc disorders; other back [...] Streptococcus B] Onset: 01-31-2023 Unclassified (1 source) cholelithiasis, chronic cholecystitis Onset: 11-30-2023 Unclassified (1 source) New Patient Onset: 12-22-2023 Unclassified (1 source) Cholelithiasis Onset: 11-22-2023 Unclassified (1 source) Acidosis, unspecified; Translations: [Acidosis, unspecified] Onset: 12-02-2023 Unclassified (1 source) Elevation of levels of liver transaminase levels; Translations: [Elevation of levels of liver transaminase levels] Onset: 12-01-2023 Past or Other Problems Problem Classification Problem Date Documented Da te Episodic/Chronic Abdominal pain (3 sources) Upper abdominal pain; Translations: [Upper abdominal pain, unspecified] Onset: 12-01-2023 Resolved: 12-03-2023 12-03-2023 Episodic Other aftercare (1 source) 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 Performed By: [employer] [address] [place], [place] [id number] Surgical Garment Fitter: Cooper Lundberg MD, PhD CLIA Number: [id number] Performed By: #### A IMG4 #### [address] [id number] Venetian Blind Mechanic: Felipe Early MD #### TRIG CPBILC #### [place] [id number] [employer] Blind Mechanic: Raul Miller MD Comp Metab w/Bili Pron 02-01 Albumin [Mass/Vol] 5.2 g/dL Normal 3.5-5.2 [facility] Comment on above: Performed By: #### A IMG4 #### [address] [id number] [employer] Mechanic: Felipe Early MD #### TRIG CPBILC #### [place] [id number] [employer] Mechanic: Raul Miller MD Albumin/Glob Ratio 2.0 Normal 1.0-2.5 [facility] Comment on above: Performed By: #### A IMG4 #### [address] [id number] [employer] Blind Mechanic: Felipe Early MD #### TRIG CPBILC #### [address] [id number] [employer]ian Blind Mechanic: Raul Miller MD Alkaline Phos 102 U/L Normal 35-104 [facility] Comment on above: Performed By: #### A IMG4 #### [facility] [address] [place] [address] Venetian Blind Mechanic: Felipe Early MD #### TRIG, CPBILC #### [address] [id number] [employer] Blind Mechanic: Raul Miller MD ALT [Catalytic activity/Vol] 20 U/L Normal 10-35 [facility] Comment on above: Performed By: #### A IMG4 #### [facility] [address] [place] [id number] [employer] Blind Mechanic: Felipe Early MD #### TRIG, CPBILC #### [address] [id number] [employer] Blind Mechanic: Raul Miller MD Anion gap [Moles/Vol] 10 mmol/L Normal 9-16 [facility] Comment on above: Performed By: #### A IMG4 #### [facility] [address] [place] [address] [employer] Mechanic: Felipe Early MD #### TRIG, CPBILC #### [address] [id number] [employer] Blind Mechanic: Raul Miller MD AST [Catalytic activity/Vol] 19 U/L Normal 10-35 [facility] Comment on above: Performed By: #### A IMG4 #### [facility] [address] [place] [address] [employer] Mechanic: Felipe Early MD #### TRIG, CPBILC #### [address] [id number] [employer] Blind Mechanic: Raul Miller MD Bilirubin [Mass/Vol] 0.3 mg/dL Normal 0.00-1.20 [facility] Comment on above: Performed By: #### A IMG4 #### [facility] [address] [place] [address] [employer]ian Blind Mechanic: Felipe Early MD #### TRIG, CPBILC #### [address] [id number] [employer] Mechanic: Raul Miller MD Bilirubin, Indirect Can not be calculated Normal 0.0-1 .0 [facility] Comment on above: Performed By: #### A IMG4 #### [facility] [address] [place] [address] [employer] Mechanic: Felipe Early MD #### ROSIE CPBILC #### [address] [id number] [employer]ian Blind Mechanic: Raul Miller MD Bilirubin.indirect [Mass/Vol] mg/dL Normal 0.0-0.2 [facility] Comment on above: Performed By: #### A IMG4 #### [facility] [address] [place] [address] [employer]ian Blind Mechanic: Felipe Early MD #### ROSIE CPBILC #### [address] [id number] [employer] Blind Mechanic: Raul Miller MD Calcium [Mass/Vol] 10.8 mg/dL High 8.6-10.4 [facility] Comment on above: Performed By: #### A IMG4 #### [facility] [address] [place] [address] [employer]ian Blind Mechanic: Felipe Early MD #### TRIG, CPBILC #### [address] [id number] [employer]ian Blind Mechanic: Raul Miller MD Chloride [Moles/Vol] 103 mmol/L Normal 98-107 [facility] Comment on above: Performed By: #### A IMG4 #### [facility] [address] [place] [address] [employer] Blind Mechanic: Felipe Early MD #### TRIG CPBILC #### [address] [id number] [employer] Blind Mechanic: Raul Miller MD CO2 [Moles/Vol] 25 mmol/L Normal 20-31 [facility] Comment on above: Performed By: #### A IMG4 #### [facility] [address] [place] [address] Venetian Blind Mechanic: Felipe Early MD #### TRIG CPBILC #### [address] [id number] Venetian Blind Mechanic: Raul Miller MD Creatinine [Mass/Vol] 0.8 mg/dL Normal 0.50-0.90 [facility] Comment on above: Performed By: #### Garrett IMG4 #### [facility] [address] [place] [address] Venetian Blind Mechanic: Felipe Early MD #### TRIG, CPBILC #### [address] [address] Venetian Blind Mechanic: Raul Miller MD GFR/1.73 sq M.predicted among non-blacks MDRD (S/P/Bld) [Vol rate/Area] mL/min/{1.73_m2} Normal >60 [facility] Comment on above: Result Comment: These results are not intended for use in patients <18 years of age. eGFR results are calculated without a race factor using the 2020 CKD-EPI equation. Careful clinical correlation is recommended, particularly when comparing to results calculated using previous equations. The CKD-EPI equation is less accurate in patients with extremes of muscle mass, extra-renal metabolism of creatine, excessive creatine ingestion, or following therapy that affects renal tubular secretion. Performed By: #### A IMG4 #### [facility] [address] [place] [address] Venetian Blind Mechanic: Felipe Early MD #### TRIG, CPBILC #### [facility] [address] [place] [address] [id number] [employer]ian Blind Mechanic: Raul Miller MD Glucose [Mass/Vol] 86 mg/dL Normal 74-99 [facility] Comment on above: Performed By: #### A IMG4 #### [facility] [address] [place], [place] [id number] Venetian Blind Mechanic: Felipe Early MD #### TRIG, CPBILC #### [address] [phone] [employer]ian Blind Mechanic: Raul Miller MD Potassium [Moles/Vol] 4.4 mmol/L Normal 3.7-5.3 [facility] Comment on above: Performed By: #### A IMG4 #### [facility] [address] [place], [place] [id number] Venetian Blind Mechanic: Felipe Early MD #### TRIG, CPBILC #### [address] [id number] [employer]ian Blind Mechanic: Raul Miller MD Protein [Mass/Vol] 8.5 g/dL Normal 6.6-8.7 [facility] Comment on above: Performed By: #### A IMG4 #### [facility] [address] [place] [address] Venetian Blind Mechanic: Felipe Early MD #### TRIG, CPBILC #### [address] [id number] [employer]ian Blind Mechanic: Raul Miller MD Sodium [Moles/Vol] 138 mmol/L Normal 136-145 [facility] Comment on above: Performed By: #### A IMG4 #### [facility] [address] [place] [address] Venetian Blind Mechanic: Felipe Early MD #### TRIG, CPBILC #### [address] [place], [place] [phone] Venetian Blind Mechanic: Raul Miller MD Urea nitrogen [Mass/Vol] 13 mg/dL Normal 6-20 [facility] Comment on above: Performed By: #### A IMG4 #### [facility] [address] [place] [address] Venetian Blind Mechanic: Felipe Early MD #### TRIG CPBILC #### [facility] [address] [place], [place] [id number] Venetian Blind Mechanic: Raul Miller MD Triglycerideson 02-02-2024 Triglyceride [Mass/Vol] 207 mg/dL High <150 [facility] Comment on above: Result Comment: Triglyceride Guidelines: <150 Desirable 150-199 Borderline 200-499 High >499 Very high Based on AHA Guidelines for fasting triglyceride, April 2012. Performed By: #### A IMG4 #### [facility] [address] [place] [address] Venetian Blind Mechanic: Felipe Ealry MD #### TRIG CPBILC #### [facility] [address] [place], [place] [id number] [employer]ian Blind Mechanic: Raul Miller MD [facility] 01-24-2024 [facility] Telephone ([id number]) NATALEE ALCOCER ([id number]) 1995 F Date Time Provider Department 01/24/24 SHALA PRINCE [id number] During your visit today, we recorded the following information about you: Allergies As of Date: 01/24/2024 Noted Allergy Reaction AMOXICILLIN 10/12/2015 4 - Hives Date Reviewed: 01/23/2024 Reviewed by: Chris Monterroso MA - Fully Assessed 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 - cholecalciferol, vitamin D3, (VITAMIN D3 ORAL) Take 5 mg by mouth once daily. Problem List As Of Date: 01/24/2024 (None) Encounter Status:Closed by BOSTON FELDMAN on 01/24/24 [facility] CNOVon 01-23-2024 CNOV Office Visit ([id number] ) NATALEE ALCOCER ([id number]) 1995 F Date Time Provider Department 01/23/24 11:00 AM SHALA PRINCE [id number] During your visit today, we recorded the following information about you: Temperature Pulse Blood pressure Weight 97.4 degrees 70/minute 133/86 71.2 kg Height 1.549 m Shala Prince MD 01/23/2024 4:22 PM Signed INITIAL PANCREATITIS PATIENT PATIENT NAME: Natalee Alcocer REASON FOR CONSULT: Chronic Biliary Pancreatitis Ascending Cholangitis REQUESTING PHYSICIAN: Self-Referred DATE of SERVICE: 01/22/2024 TIME of SERVICE: 3:11 PM PCP: Zeenat Herndon MD, MANAGER OF COMMUNITY RELATIONS HPI: Ms. Alcocer is a 28 year old healthy female s/p laparoscopic cholecystectomy who presents for a second opinion of her chronic pancreatitis. Natalee presented to the ED on 11/28 for symptoms of cholithiasis/acute cholecystitis which was treated with laparoscopic cholecystectomy on 11/29 and discharged home. On 11/30 she returned to the ED with jaundice, severe RUQ, N/V. ERCP done on 12/01 in which a sphincterotomy and stent placement were done. On 12/12 she presented to the ED again for ascending cholangitis secondary to stent obstruction. Stent was removed and replaced. Patients stent was removed 01/14. She presents today for a second opinion regarding her chronic pancreatitis. She currently is asymptomatic except for mild RUQ and epigastric tenderness. Patient does not complain of jaundice, loss of weight, loss of appetite, pale colored stools, generalized itching, abdominal pain, history of pancreatitis. Any alcohol use? no Previous alcohol use? no Binge alcohol use Current tobacco use? no Prior tobacco use? no Pack year smoking history? N/A Previous cholecystectomy and year? 12/01/2023 Gallstone at cholecystectomy? yes Gallbladder insitu with gallstones/sludge? yes Gallbladder insitu no gallstone/sludge?N/A First diagnoses of pancreatitis? 12/13/2023 Hospital, state? Medication induced pancreatitis? no Hypertriglyceridemia? no Family history of pancreatitis? no Family history of pancreatic cancer or hepatobiliary cancers? no Previous pancreatic stenting: no Previous pancreatic surgery:no Previous pancreatic biopsy: no MEDICATIONS: Morphine equivalents for narcotics: N/A Other pain medication use: N/A CURRENT KP TESTING RESULTS: N/A PAST MEDICAL HISTORY: No past medical history on file. PAST SURGICAL HISTORY: No past surgical history on file. FAMILY HISTORY: No family history on file. SOCIAL HISTORY: Social History Tobacco Use Smoking status: Every Day Smokeless tobacco: Never Tobacco comments: Smokes Marijuana* Substance Use Topics Drug use: Yes Types: Marijuana Review of Systems: PAIN ASSESSMENT: Negative for pain, history of chronic pain, or current treatment for a chronic pain condition. GENERAL: No weight loss, malaise or fevers., Negative for fatigue, malaise, weakness, fevers, chills, night sweats, and weight loss. RESPIRATORY: Negative for cough, hemoptysis, wheezing, COPD, dyspnea or shortness of breath CARDIOVASCULAR: Negative for chest pain, leg swelling, hypertension, CHF or palpitations, Negative for chest pain, leg swelling, CHF or palpitations GI: No nausea, vomiting, or diarrhea and No heartburn or reflux symptoms : No history of dysuria, frequency or incontinence MUSCULOSKELETAL: Negative for joint pain or swelling, back pain or muscle pain The remainder of the review of systems is negative. PHYSICAL EXAMINATION: BP 133/86 Pulse 70 Temp 36.3 ?C (97.4 ?F) (Temporal) Ht 154.9 cm (5' 0.98 ) Wt 71.2 kg (157 lb) SpO2 99% BMI 29.68 kg/m? @BMI General appearance: Well appearing, alert, in no acute distress, well-hydrated, well nourished. Skin: Skin color, texture, turgor normal, no suspicious rashes or lesions Eyes: Anicteric sclera. Pupils are equally round and reactive to light. Extraocular movements are intact. Oropharynx: Lips, mucosa, and tongue normal, teeth and gums normal, oropharynx normal Lungs: Lungs clear to auscultation. No wheezing, rhonchi, rales. Heart: RRR without murmur, gallop, or rubs. No ectopy Abdomen: Normal abdominal exam, Abdomen soft, non-tender. Bowel sounds normal. No masses, organomegaly Labs IgG4: Genetic testing: Triglyceride: LFTs: Amylase: Lipase: Imaging 12/12/2023 CT A/P 11/08/2023 US RUQ [facility] Operative Report 11/30/2023 Dr. Betts 11/02/2023 CT A/P Procedures: 12/13/2023 ERCP/EUS Pancreatic duct dilation: no Pancreatic duct stones: no Parenchymal stones: no Pancreatic Atrophy: no Focal pancreatitis: no Location of focal pancreatitis: (Head, Body/tail, Groove) No abnormal pancreatic imaging findings on all imaging review: ASSESSMENT: Chronic pancreatitis Etiology Biliary ( Idiopathic, gallstones, alcohol induced, medication induced, genetic, hypertriglyceridemia, (more content not included)... Normal [facility] FLUORO FOR SURGICAL PROCEDUR ESon 01-15-2024 FLUORO FOR SURGICAL PROCEDURES Radiology exam is complete. No Radiologist dictation. Please follow up with ordering provider. Final result Normal [facility] Guidance-- during surgeryon 01-15-2024 Radiology exam is complete. No Radiologist dictation. Please follow up with ordering provider. [facility] RIS CONSOLIDATED HCG,,Ur(POC)on HCG,,Ur(POC) Negative Normal NEG [facility] Comment on above: Result Comment: Spec imens with hCG levels near the threshold of the test (25 mIU/mL) may give a negative or indeterminate result. In such cases, another test should be performed with a new specimen in 48-72 hours. If early is suspected clinically in this setting, correlation with quantitative serum b-hCG level is suggested. Performed By: #### U HARIKA HEWITT #### [facility] [address] [place], [place] [id number] [employer]: Emiliano Henderson MD POCT urine pregnancyon 01-14 Beta HCG ( test) Ql (U) Negative NEGATIVE [facility] Comment on above: Specimens with hCG l evels near the threshold of the test (25 mIU/mL) may give a negative or indeterminate result. In such cases, another test should be performed with a new specimen in 48-72 hours. If early is suspected clinically in this setting, correlation with quantitative serum b-hCG level is suggested. [facility] Surgical Pathology Reporton 01-15-2024 Surgical Pathology Report (NOTE) Path Number: [id number] -- Diagnosis -- A. BILE DUCT STENT, GROSS EXAMINATION ONLY B. COMMON BILE DUCT, BIOPSY: -BENIGN COLUMNAR MUCOSA WITH CHRONIC INFLAMMATION Ulysses Bustillos D.O. Electronically Signed Out [facility]01/17/[facility]24 Clinical Information Pre-Op Diagnosis: CALCULUS OF BILE DUCT WITH ACUTE AND CHRONIC CHOLANGITIS WITHOUT OBSTRUCTION Operative Findings: CALCULUS OF BILE DUCT WITH ACUTE AND CHRONIC CHOLANGITIS WITHOUT OBSTRUCTION; COMMON BILE DUCT MICRO BIOPSIES Operation Performed: ENDOSCOPIC RETROGRADE CHOLANGIOPANCREATOGRA PHY WITH STENT EXCHANGE; ESOPHAGOGASTRODUODENO SCOPY; ENDOSCOPIC ULTRASOUND kb Source of Specimen A: CALCULUS OF BILE DUCT WITH ACUTE AND CHRONIC CHOLANGITIS WITHOUT OBSTRUCTION B: COMMON BILE DUCT MICRO BIOPSIES Gross Description A. NATALEE BAEZUMBERTO, CALCULUS OF BILE DUCT WITH ACUTE AND CHRONIC CHOLANGITIS WITHOUT OBSTRUCTION Received fresh is a mesh-like cylindrical patent tubular structure, 6.0 cm in length and 0.8 cm in diameter. A small amount of partly solidified green bile is adherent to it as well as a small amount of white chalky substance. No soft tissue is seen. No calculi are grossly identified. Gross exam only. tm B. NATALEE LEODAN, COMMON BILE DUCT MICRO BIOPSIES Received in formalin are three garcía-white fragments from 0.3 to 2.2 cm in length and are 2.2 x 0.4 x 0.1 cm in aggregate. Entirely 1cs. jj susan Damon/kb2:01/16/2024 Microscopic Description B. Microscopic examination performed. Processing Lab: [address] [address] Interpretation Performed at [address] [phone] SURGICAL PATHOLOGY CONSULTATION Patient Name: NATALEE ALCOCER [facility] Rec: [id number] [facility] [address] [place] [id number] [facility] Surgical Pathology Report (NOTE) Path Number: [id number] INTERPRETATION A. LYMPH NODE, DAVID HEPATIS, EUS FINE-NEEDLE ASPIRATION: -NEGATIVE FOR MALIGNANCY -NUMEROUS LYMPHOCYTES CONSISTENT WITH ORIGIN IN LYMPH NODE B. COMMON BILE DUCT, EUS, FINE NEEDLE ASPIRATION: -NEGATIVE FOR MALIGNANCY Electronically Signed Out Ulysses Bustillos D.O. ljf/01/17/2024 Source of Specimen: A: FINE NEEDLE ASPIRATION EUS DAVID HEPATIS LYMP NODE B: FINE NEEDLE ASPIRATION EUS COMMON BILE DUCT Clinical History Calculus of bile duct with acute and chronic cholangitis without obstruction K80.36. Gross Description A. DAVID HEPATIS LYMPH NODE Specimen received in CytoLyt solution, light red fluid. B. COMMON BILE DUCT ASPIRATE 2ml of yellow fluid. MICROSCOPIC DESCRIPTION Microscopic examination performed. Non Metal Filer Thin Prep x 1, Cell Block w/ MIGUEL x 1 Non Metal Filer Thin Prep x 1, Cell Block w/ MIGUEL x 1 Processing Lab: [address] [id number] Interpretation performed at [address] [address] NONGYNECOLOGICAL CYTOPATHOLOGY CONSULTATION Patient Name: NATALEE ALCOCER [facility] Rec: [id number] [employer] [facility] [address] [place] [phone] [facility] Miky 01-08-2024 [facility] Telephone ([id number]) NATALEE ALCOCER ([id number]) 1995 F Date Time Provider Department 01/08/24 SHALA PRINCE [id number] During your visit today, we recorded the following information about you: Marie Larios Butch 01/08/2024 8:18 AM Signed Received Operative report from [facility]/ Dr. Betts dated 11/30/2023, please review. Thank you! Allergies As of Date: 01/08/2024 Noted Allergy Reaction AMOXICILLIN 10/12/2015 4 - Hives Date Reviewed: 01/26/2021 Reviewed by: Jake Middleton) - Fully Assessed Reason for Visit: Received Outside Medical Records [[id number]] Prescriptions as of 01/12/2024 - ibuprofen (MOTRIN) 800 mg tablet Take 800 mg by mouth as needed. - cholecalciferol, vitamin D3, (VITAMIN D3 ORAL) Take 5 mg by mouth once daily. Problem List As Of Date: 01/08/2024 (None) Encounter Status:Closed by BOSTON FELDMAN on 01/12/24 [facility] Miky 12-29-2023 [facility] Telephone ([id number]) NATALEE ALCOCER ([id number]) 1995 F Date Time Provider Department 12/29/23 SHALA PRINCE [id number] During your visit today, we recorded the following information about you: Chris Monterroso MA 12/29/2023 3:50 PM Signed Attached are Outside Records From [facility]: Allergies As of Date: 12/29/2023 Noted Allergy Reaction AMOXICILLIN 10/12/2015 4 - Hives Date Reviewed: 01/26/2021 Reviewed by: Jake Middleton) - Fully Assessed Reason for Visit: Received Outside Medical Records [[id number]] Prescriptions as of 01/04/2024 - ibuprofen (MOTRIN) 800 mg tablet Take 800 mg by mouth as needed. - cholecalciferol, vitamin D3, (VITAMIN D3 ORAL) Take 5 mg by mouth once daily. Problem List As Of Date: 12/29/2023 (None) Encounter Status:Closed by CHRIS MONTERROSO on 01/01/24 Normal [facility] Telephone ([id number]) NATALEE ALCOCER ([id number]) 1995 F Date Time Provider Department 12/29/23 SHALA PRINCE [id number] During your visit today, we recorded the following information about you: Boston Feldman 01/04/2024 10:38 AM Addendum Hepatobiliary Surgery Consult - 28 year old female with chronic biliary pancreatitis requesting second opinion - 11/30/2023 s/p salma hoyt by Dr. Hui Betts at [facility] - 12/01/[address] [facility] with intractable nausea/vomiting and abdominal pain; elevated liver enzymes and jaundice, slightly elevated WBC; transferred to [place] for concern of stone in CBD - 12/02/2023 ERCP for sphincterotomy, balloon sweep, stone and sludge removal, mid CBD stricture and stent placement - 12/13/[address] [facility] for worsening RUQ/epigastric pain; elevated bilirubin and leukocytosis 30,000; transferred back to [place]; admitted for ascending cholangitis secondary to stent obstruction. - 12/13/2023 ERCP/EUS revealing distal biliary stricture and upstream CBD dilation. Patient's old biliary stent was removed and new 8 mm x 60 mm stent placed Received Records From: [facility]- [phone] -ER summary 12/01/23 and 12/13/2023 -11/02/23 CT A/p, 11/08/23 US RUQ, 12/12/23 CT A/P [facility] ph [phone] fx [phone] -Lap evelina operative note [facility] ph [phone] fx [phone] -12/12- Discharge Summary -12/02/23 ERCP, 12/13/23 ERCP/EUS Records Review Imagin12/12/2023 CT A/P 11/08/2023 US RUQ 11/02/2023 CT A/P Procedures: 12/13/2023 ERCP/EUS Pathology: Biospy Cytology Allergies As of Date: 12/29/2023 Noted Allergy Reaction AMOXICILLIN 10/12/2015 4 - Hives Date Reviewed: 01/26/2021 Reviewed by: Jake Middleton (Betito) - Fully Assessed Reason for Visit: New Patient [172] 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 - cholecalciferol, vitamin D3, (VITAMIN D3 ORAL) Take 5 mg by mouth once daily. Problem List As Of Date: 12/29/2023 (None) Encounter Status:Closed by BOSTON FELDMAN on 01/12/24 Normal [facility] METABOLIC PANE Jose 12-22-2023 Albumin [Mass/Vol] 4.9 g/dL Normal 3.2-5.3 [facility] Comment on above: Performed By: #### C YULIANA, 3040-3 #### [facility] ([id number]) [address], [address] [place] [address] ALP [Catalytic activity/Vol] 240 U/L High 39-130 [facility] Comment on above: Performed By: #### Karina BRIDGES, 3040-3 #### [facility] ([id number]) [address], [address] [place] [address] ALT [Catalytic activity/Vol] 87 U/L High 0-31 [facility] Comment on above: Performed By: #### Karina BRIDGES, 0-3 #### [facility] ([id number]) [address], [address] [place] [address] Anion gap [Moles/Vol] 13 mmol/L Normal 5-15 [facility] Comment on above: Performed By: #### Karina BRIDGES, 3039-3 #### [facility] ([id number]) [address], [address] [place] [address] AST [Catalytic activity/Vol] 23 U/L Normal 0-41 [facility] Comment on above: Performed By: #### Karina BRIDGES, 3039-3 #### [facility] ([id number]) [address] [place] [address] Bilirubin [Mass/Vol] 1.3 mg/dL High 0.3-1.2 [facility] Comment on above: Performed By: #### Karina BRIDGES, 3039-3 #### [facility] ([id number]) [address], [address] [place] [address] Calcium [Mass/Vol] 11.5 mg/dL High 8.5-10.5 [facility] Comment on above: Performed By: #### Karina BRIDGES, 3039-3 #### [facility] ([id number]) [address] [place] [address] Chloride [Moles/Vol] 105 mmol/L Normal 98-109 [facility] Comment on above: Performed By: #### Karina BRIDGES, 3039-3 #### [facility] ([id number]) [address], [address] [place] [address] CO2 [Moles/Vol] 23 mmol/L Normal 22-32 [facility] Comment on above: Performed By: #### Karina BRIDGES, 3040-3 #### [facility] ([id number]) [address] [address] [place] [address] Creatinine [Mass/Vol] 0.74 mg/dL Normal 0.40-1.00 [facility] Comment on above: Result Comment: METH OD TRACEABLE TO IDMS STANDARD Performed By: #### C YULIANA, 3039-3 #### [facility] ([id number]) [address] [address] [place] [address] eGFR (CKD-EPI) NON-RACE DEPENDENT >90 Normal >59 [facility] Comment on above: Result Comment: Reported eGFR is based on the CKD-EPI 2020 equation that does not use a race coefficient. Performed By: #### Karina BRIDGES, 3039-3 #### [facility] ([id number]) [address] [address] [place] [address] Glucose [Mass/Vol] 68 mg/dL Normal 65-99 [facility] Comment on above: Performed By: #### Karina BRIDGES, 3039-3 #### [facility] ([id number]) [address] [address] [place] [address] Potassium [Moles/Vol] 4.3 mmol/L Normal 3.5-5.0 [facility] Comment on above: Performed By: #### Karina BRIDGES, 3039-3 #### [facility] ([id number]) [address] [address] [place] [address] Protein [Mass/Vol] 8.4 g/dL High 6.0-8.0 [facility] Comment on above: Performed By: #### Karina BRIDGES, 3039-3 #### [facility] ([id number]) [address] [address] [place] [address] Sodium [Moles/Vol] 141 mmol/L Normal 134-146 [facility] Comment on above: Performed By: #### Karina BRIDGES, 3039-3 #### [facility] ([id number]) [address] [place] [address] Urea nitrogen [Mass/Vol] 19 mg/dL Normal 5-23 [facility] Comment on above: Performed By: #### C YULIANA, 3040-3 #### [facility] ([id number]) [address], [address] [place] [address] LIPASEon 12-22-2023 Lipase [Catalytic activity/Vol] 97 U/L High 11-82 [facility] Comment on above: Performed By: #### C YULIANA, 3040-3 #### [facility] ([id number]) [address], [address] [place] [address] CBC with Diffon 12-14-2023 Abs. Basophil <0.03 Normal 0.00-0.20 [facility] Comment on above: Performed By: #### Chelly HEWITT UAX #### [facility] [address] [facility] [place] [address] [employer]: Emiliano Henderson MD Abs.Imm.Granulocyte 0.03 k/uL Normal 0.00-0.30 [facility] Comment on above: Performed By: #### Chelly HEWITT UAX #### [facility] [address] [facility] [place] [address] [employer]ic: Emiliano Henderson MD Abs.Neutrophil (Seg) 6.31 k/uL Normal 1.50-8.10 [facility] Comment on above: Performed By: #### Chelly HEWITT UAX #### [facility] [address] [facility] [place] [address] [employer]ic: Emiliano Henderson MD Basophils/100 WBC (Bld) 0 % Normal 0-2 [facility] Comment on above: Performed By: #### Chelly HEWITT UAX #### [facility] [address] [facility] [place] [address] [employer]ic: Emiliano Henderson MD Eosinophils (Bld) [#/Vol] 0.03 10*3/uL Normal 0.00-0.44 [facility] Comment on above: Performed By: #### U MICAO, UAX #### [facility] [address] [place] [address]. [place] [address] [employer]ic: Emiliano Henderson MD Eosinophils/100 WBC (Bld) 0 % Low 1-4 [facility] Comment on above: Performed By: #### U LEVYO, UAX #### [facility] [address] [place] [address]. [place] [address] [employer]ic: Emiliano Henderson MD Erythrocyte distribution width (RBC) [Ratio] 13.7 % Normal 11.8-14.4 [facility] Comment on above: Performed By: #### U LEVYO, UAX #### [facility] [address] [place] [address]. [place] [address] [employer]ic: Emiliano Henderson MD Hematocrit (Bld) [Volume fraction] 33.7 % Low 36.3-47.1 [facility] Comment on above: Performed By: #### U LEVYO, UAX #### [facility] [address] [place] [address]. [place] [address] [employer]ic: Emiliano Henderson MD Hemoglobin (Bld) [Mass/Vol] 10.8 g/dL Low 11.9-15.1 [facility] Comment on above: Performed By: #### U MICAO, UAX #### [facility] [address] [place], [place] [address]ia [facility] [place] [address] [employer]ic: Emiliano Henderson MD Immature granulocytes/100 WBC (Bld) 0 % Normal 0 [facility] Comment on above: Performed By: #### U MICAO, UAX #### [facility] [address] [facility] [place] [address] [employer]ic: Emiliano Henderson MD Lymphocytes (Bld) [#/Vol] 1.03 10*3/uL Low 1.10-3.70 [facility] Comment on above: Performed By: #### U MARCELINA, UAX #### [facility] [address] [place] [address]. [place] [address] [employer]ic: Emiliano Henderson MD Lymphocytes/100 WBC (Bld) 13 % Low 24-43 [facility] Comment on above: Performed By: #### Chelly HEWITT, UAX #### [facility] [address] [place] [address]. [place] [address] [employer]ic: Emiliano Henderson MD MCH (RBC) [Entitic mass] 29.8 pg Normal 25.2-33.5 [facility] Comment on above: Performed By: #### Chelly HEWITT, UAX #### [facility] [address] [place] [address]. [place] [address] [employer]ic: Emiliano Henderson MD MCHC (RBC) [Mass/Vol] 32.0 g/dL Normal 28.4-34.8 [facility] Comment on above: Performed By: #### U MARCELINA, UAX #### [facility] [address] [place], [place] [address]ia [facility] [place] [address] [employer]ic: Emiliano Henderson MD MCV (RBC) [Entitic vol] 93.1 fL Normal 82.6-102.9 [facility] Comment on above: Performed By: #### U MARCELINA, UAX #### [facility] [facility] [place] [address] [employer]ic: Emiliano Henderson MD Monocytes (Bld) [#/Vol] 0.78 10*3/uL Normal 0.10-1.20 [facility] Comment on above: Performed By: #### U MARCELINA UAX #### [facility] [address] [place] [address] [employer]ic: Emiliano Henderson MD Monocytes/100 WBC (Bld) 10 % Normal 3-12 [facility] Comment on above: Performed By: #### U MARCELINA UAX #### [facility] [address] [place] [address] [employer]ic: Emiliano Henderson MD Neutrophil (Seg) 77 % High 36-65 [facility] Comment on above: Performed By: #### Chelly HEWITT, UAX #### [facility] [place] [address] [employer]ic: Emiliano Henderson MD NRBC Automated 0.0 per 100 WBC Normal 0.0 [facility] Comment on above: Performed By: #### Chelly HEWITT UAX #### [facility] [address] [place] [address] [employer]ic: Emiliano Henderson MD Platelet mean volume (Bld) [Entitic vol] 10.3 fL Normal 8.1-13.5 [facility] Comment on above: Performed By: #### Chelly HEWITT UAX #### [facility] [address] [place] [address] [employer]ic: Emiliano Henderson MD Platelets (Bld) [#/Vol] 282 10*3/uL Normal 138-453 [facility] Comment on above: Performed By: #### U MARCELINA, UAX #### [facility] [address] [place] [address] [employer]ic: Emiliano Henderson MD RBC (Bld) [#/Vol] 3.62 10*6/uL Low 3.95-5.11 [facility] Comment on above: Performed By: #### U MARCELINA, UAX #### [facility] [address] [place] [address] [employer]ic: Emiliano Henderson MD WBC (Bld) [#/Vol] 8.2 10*3/uL Normal 3.5-11.3 [facility] Comment on above: Performed By: #### U LEVYO, UAX #### [facility] [place] [address] [employer]ic: Emiliano Henderson MD Comp Metabolic Pr/rfx MGon 0 12-14-2023 Albumin [Mass/Vol] 3.4 g/dL Low 3.5-5.2 [facility] Comment on above: Performed By: #### U MARCELINA, UAX #### [facility] [address] [place] [address] [employer]ic: Emiliano Henderson MD Alkaline Phos 459 U/L High 35-104 [facility] Comment on above: Performed By: #### U LEVYO, UAX #### [facility] [place] [address] [employer]ic: Emiliano Henderson MD ALT [Catalytic activity/Vol] 501 U/L High 5-33 [facility] Comment on above: Performed By: #### U LEVYO, UAX #### [facility] [address] [place] [address] [employer]ic: Emiliano Henderson MD Anion gap [Moles/Vol] 11 mmol/L Normal 9-17 [facility] Comment on above: Performed By: #### U LEVYO, UAX #### [facility] [address] [place] [address] [employer]ic: Emiliano Henderson MD AST [Catalytic activity/Vol] 77 U/L High <32 [facility] Comment on above: Performed By: #### U MICAO, UAX #### [facility] [address] [place] [address] [employer]ic: Emiliano Henderson MD Bilirubin [Mass/Vol] 1.1 mg/dL Normal 0.3-1.2 [facility] Comment on above: Performed By: #### U LEVYO, UAX #### [facility] [place] [address] [employer]ic: Emiliano Henderson MD BUN/CRE Ratio 20 Normal 9-20 [facility] Comment on above: Performed By: #### U LEVYO, UAX #### [facility] [address] [place] [address] [employer]ic: Emiliano Henderson MD Calcium [Mass/Vol] 8.7 mg/dL Normal 8.6-10.4 [facility] Comment on above: Performed By: #### U LEVYO, UAX #### [facility] [place] [address] [employer]ic: Emiliano Henderson MD Chloride [Moles/Vol] 107 mmol/L Normal 98-107 [facility] Comment on above: Performed By: #### U MICAO, UAX #### [facility] [address] [place] [address] [employer]ic: Emiliano Henderson MD CO2 [Moles/Vol] 20 mmol/L Normal 20-31 [facility] Comment on above: Performed By: #### U LEVYO, UAX #### [facility] [address] [place] [address] [employer]ic: Emiliano Henderson MD Creatinine [Mass/Vol] 0.6 mg/dL Normal 0.5-0.9 [facility] Comment on above: Performed By: #### U LEVYO, UAX #### [facility] [address] [facility] [place] [address] [employer]: Emiliano Henderson MD GFR/1.73 sq M.predicted among non-blacks MDRD (S/P/Bld) [Vol rate/Area] mL/min/{1.73_m2} Normal >60 [facility] Comment on above: Result Comment: These results are not intended for use in patients <18 years of age. eGFR results are calculated without a race factor using the 2020 CKD-EPI equation. Careful clinical correlation is recommended, particularly when comparing to results calculated using previous equations. The CKD-EPI equation is less accurate in patients with extremes of muscle mass, extra-renal metabolism of creatine, excessive creatine ingestion, or following therapy that affects renal tubular secretion. Performed By: #### Chelly HEWITT UAX #### [facility] [place] [address] [employer] Mechanic: Emiliano Henderson MD Glucose [Mass/Vol] 88 mg/dL Normal 70-99 [facility] Comment on above: Performed By: #### Chelly HEWITT UAX #### [facility] [place] [address] [employer] Mechanic: Emiliano Henderson MD Potassium [Moles/Vol] 4.5 mmol/L Normal 3.7-5.3 [facility] Comment on above: Performed By: #### U MARCELINA UAX #### [facility] [place] [address] [employer]ic: Emiliano Henderson MD Protein [Mass/Vol] 6.4 g/dL Normal 6.4-8.3 [facility] Comment on above: Performed By: #### U MARCELINA, UAX #### [facility] [address] [place] [address] [employer]ic: Emiliano Henderson MD Sodium [Moles/Vol] 138 mmol/L Normal 135-144 [facility] Comment on above: Performed By: #### U MARCELINA UAX #### [facility] [address] [place] [address] [employer]ic: Emiliano Henderson MD Urea nitrogen [Mass/Vol] 12 mg/dL Normal 6-20 [facility] Comment on above: Performed By: #### Chelly HEWITT, UAX #### [facility] [address] [place] [address] [employer] Mechanic: Emiliano Henderson MD Lactic Acidon 12-14-2023 Lactate [Moles/Vol] 1.1 mmol/L Normal 0.5-2.2 [facility] Comment on above: Performed By: #### Chelly HEWITT UAX #### [facility] [address] [place] [address] [employer]ic: Emiliano Henderson MD NA (Sodium)on 12-14-2023 Sodium [Moles/Vol] 138 mmol/L Normal 135-144 [facility] Comment on above: Performed By: #### U MARCELINA, UAX #### [facility] [address] [place] [address] [employer]ic: Emiliano Henderson MD CBC with Diffon 12-13-2023 Abs. Basophil 0.00 k/uL Normal 0.0-0.2 [facility] Comment on above: Performed By: #### B C #### [facility] [address] [place] [address] [employer] Mechanic: Emiliano Henderson MD [address] [address] [employer] Mechanic: Raul Miller MD Abs.Imm.Granulocyte 0.00 k/uL Normal 0.00-0.30 [facility] Comment on above: Performed By: #### B C #### [facility] [address] [place] [address] [employer]ic: Emiliano Henderson MD [address] [address] [employer] Mechanic: Raul Miller MD Abs.Neutrophil (Seg) 9.79 k/uL High 1.8-7.7 [facility] Comment on above: Performed By: #### B C #### [facility] [address] [place] [address] [employer]ic: Emiliano Henderson MD [address] [address] [employer] Mechanic: Raul Miller MD Basophils/100 WBC (Bld) 0 % Normal [facility] Comment on above: Performed By: #### B C #### [facility] [address] [place] [address] [employer]ic: Emiliano Henderson MD [address] [address] [employer] Mechanic: Raul Miller MD Eosinophils (Bld) [#/Vol] 0.00 10*3/uL Normal 0.0-0.4 [facility] Comment on above: Performed By: #### B C #### [facility] [address] [place] [address] [employer]ic: Emiliano Henderson MD [address] [address] [employer] Mechanic: Raul Miller MD Eosinophils/100 WBC (Bld) 0 % Low 1-4 [facility] Comment on above: Performed By: #### B C #### [facility] [address] [place] [address] [employer]ic: Emiliano Henderson MD [address] [address] [employer] Mechanic: Raul Miller MD Immature granulocytes/100 WBC (Bld) 0 % Normal 0 [facility] Comment on above: Performed By: #### B C #### [facility] [address] [place] [address] [employer]ic: Emiliano Henderson MD [address] [address] [employer] Mechanic: Raul Miller MD Lymphocytes (Bld) [#/Vol] 0.55 10*3/uL Low 1.0-4.8 [facility] Comment on above: Performed By: #### B C #### [facility] [address] [place] [address] [employer]ic: Emiliano Henderson MD [address] [address] [employer] Mechanic: Raul Miller MD Lymphocytes/100 WBC (Bld) 5 % Low 24-44 [facility] Comment on above: Performed By: #### B C #### [facility] [address] [place] [address] [employer]ic: Emiliano Henderson MD [facility] [employer] [address] [place] [address] [employer] Mechanic: Raul Miller MD Monocytes (Bld) [#/Vol] 0.66 10*3/uL Normal 0.2-0.8 [facility] Comment on above: Performed By: #### B C #### [facility] [address] [place] [address] [employer]ic: Emiliano Henderson MD [facility] [employer] [address] [place] [address] [employer]ic: Raul Miller MD Monocytes/100 WBC (Bld) 6 % Normal 1-7 [facility] Comment on above: Performed By: #### B C #### [facility] [address] [place] [address] [employer]ic: Emiliano Henderson MD [facility] [employer] [address] [place] [address] [employer] Mechanic: Raul Miller MD Neutrophil (Seg) 89 % High 36-66 [facility] Comment on above: Performed By: #### B C #### [facility] [address] [place] [address] [employer]ic: Emiliano Henderson MD [address] [address] [employer] Mechanic: Raul Miller MD Erythrocyte distribution width (RBC) [Ratio] 14.5 % High 11.8-14.4 [facility] Comment on above: Performed By: #### B C #### [facility] [address] [place] [address] [employer]ic: Emiliano Henderson MD [address] [address] [employer] Mechanic: Raul Miller MD Hematocrit (Bld) [Volume fraction] 32.9 % Low 36.3-47.1 [facility] Comment on above: Performed By: #### B C #### [facility] [address] [place] [address] [employer]ic: Emiliano Henderson MD [facility] [employer] [address] [place] [address] [employer] Mechanic: Raul Miller MD Hemoglobin (Bld) [Mass/Vol] 10.6 g/dL Low 11.9-15.1 [facility] Comment on above: Performed By: #### B C #### [facility] [address] [place] [address] [employer]ic: Emiliano Henderson MD [address] [address] [employer] Mechanic: Raul Miller MD MCH (RBC) [Entitic mass] 30.4 pg Normal 25.2-33.5 [facility] Comment on above: Performed By: #### B C #### [facility] [address] [place] [address] [employer]ic: Emiliano Henderson MD [address] [address] [employer] Mechanic: Raul Miller MD MCHC (RBC) [Mass/Vol] 32.2 g/dL Normal 28.4-34.8 [facility] Comment on above: Performed By: #### B C #### [facility] [address] [place] [address] [employer]ic: Emiliano Henderson MD [address] [address] [employer] Mechanic: Ralu Miller MD MCV (RBC) [Entitic vol] 94.3 fL Normal 82.6-102.9 [facility] Comment on above: Performed By: #### B C #### [facility] [address] [place] [address] [employer]ic: Emiliano Henderson MD [address] [address] [employer] Blind Mechanic: Raul Miller MD NRBC Automated 0.0 per 100 WBC Normal 0.0 [facility] Comment on above: Performed By: #### B C #### [facility] [address] [place] [address] [employer] Mechanic: Emiliano Henderson MD [address] [address] [employer] Blind Mechanic: Raul Miller MD Platelet mean volume (Bld) [Entitic vol] 10.2 fL Normal 8.1-13.5 [facility] Comment on above: Performed By: #### B C #### [facility] [address] [place] [address] [employer] Mechanic: Emiliano Henderson MD [address] [address] [employer] Blind Mechanic: Raul Miller MD Platelets (Bld) [#/Vol] 256 10*3/uL Normal 138-453 [facility] Comment on above: Performed By: #### B C #### [facility] [address] [place] [address] [employer] Mechanic: Emiliaon Henderson MD [address] [address] [employer] Mechanic: Rual Miller MD RBC (Bld) [#/Vol] 3.49 10*6/uL Low 3.95-5.11 [facility] Comment on above: Performed By: #### B C #### [facility] [address] [place] [address] [employer] Mechanic: Emiliano Henderson MD [facility] [employer] [address] [place] [address] [employer] Mechanic: Raul Miller MD WBC (Bld) [#/Vol] 11.0 10*3/uL Normal 3.5-11.3 [facility] Comment on above: Performed By: #### B C #### [facility] [address] [place] [address] [employer] Mechanic: Emiliano Henderson MD [address] [address] Venet[employer] Blind Mechanic: Raul Miller MD Comp Metabolic Profon 2023 Albumin [Mass/Vol] 3.2 g/dL Low 3.5-5.2 [facility] Comment on above: Performed By: #### B C #### [facility] [address] [place] [address] [employer] Mechanic: Emiliano Henderson MD [address] [address] [employer] Mechanic: Raul Miller MD Alkaline Phos 510 U/L High 35-104 [facility] Comment on above: Performed By: #### B C #### [facility] [address] [place] [address] [employer] Mechanic: Emiliano Henderson MD [address] [address] Venet[employer] Blind Mechanic: Raul Miller MD ALT [Catalytic activity/Vol] 767 U/L High 5-33 [facility] Comment on above: Performed By: #### B C #### [facility] [address] [place] [address] [employer] Mechanic: Emiliano Henderson MD [address] [address] [employer] Blind Mechanic: Raul Miller MD Anion gap [Moles/Vol] 11 mmol/L Normal 9-17 [facility] Comment on above: Performed By: #### B C #### [facility] [address] [place] [address] [employer] Mechanic: Emiliano Henderson MD [address] [address] Venet[employer] Blind Mechanic: Raul Miller MD AST [Catalytic activity/Vol] 237 U/L High <32 [facility] Comment on above: Performed By: #### B C #### [facility] [address] [place] [address] [employer] Mechanic: Emiliano Henderson MD [address] [address] Venet[employer] Blind Mechanic: Raul Miller MD Bilirubin [Mass/Vol] 1.8 mg/dL High 0.3-1.2 [facility] Comment on above: Performed By: #### B C #### [facility] [address] [place] [address] [employer] Mechanic: Emiliano Henderson MD [address] [address] Venet[employer] Blind Mechanic: Raul Miller MD BUN/CRE Ratio 19 Normal 9-20 [facility] Comment on above: Performed By: #### B C #### [facility] [address] [place] [address] [employer] Mechanic: Emiliano Henderson MD [address] [address] Venet[employer] Blind Mechanic: Raul Miller MD Calcium [Mass/Vol] 9.0 mg/dL Normal 8.6-10.4 [facility] Comment on above: Performed By: #### B C #### [facility] [address] [place] [address] [employer] Mechanic: Emiliano Henderson MD [address] [address] Venet[employer] Blind Mechanic: Raul Miller MD Chloride [Moles/Vol] 101 mmol/L Normal 98-107 [facility] Comment on above: Performed By: #### B C #### [facility] [address] [place] [address] [employer] Mechanic: Emiliano Henderson MD [address] [address] [employer] Blind Mechanic: Raul Miller MD CO2 [Moles/Vol] 20 mmol/L Normal 20-31 [facility] Comment on above: Performed By: #### B C #### [facility] [address] [place] [address] [employer] Mechanic: Emiliano Henderson MD [address] [address] Venet[employer] Blind Mechanic: Raul Miller MD Creatinine [Mass/Vol] 0.7 mg/dL Normal 0.5-0.9 [facility] Comment on above: Performed By: #### B C #### [facility] [address] [place] [address] [employer] Mechanic: Emiliano Henderson MD [address] [address] [employer] Blind Mechanic: Raul Miller MD GFR/1.73 sq M.predicted among non-blacks MDRD (S/P/Bld) [Vol rate/Area] mL/min/{1.73_m2} Normal >60 [facility] Comment on above: Result Comment: These results are not intended for use in patients <18 years of age. eGFR results are calculated without a race factor using the 2020 CKD-EPI equation. Careful clinical correlation is recommended, particularly when comparing to results calculated using previous equations. The CKD-EPI equation is less accurate in patients with extremes of muscle mass, extra-renal metabolism of creatine, excessive creatine ingestion, or following therapy that affects renal tubular secretion. Performed By: #### B C #### [facility] [address] [place] [address] [employer] Mechanic: Emiliano Henderson MD [address] [address] Venet[employer] Blind Mechanic: Raul Miller MD Glucose [Mass/Vol] 75 mg/dL Normal 70-99 [facility] Comment on above: Performed By: #### B C #### [facility] [address] [place] [address] [employer] Mechanic: Emiliano Henderson MD [address] [address] [employer] Mechanic: Raul Miller MD Potassium [Moles/Vol] 3.9 mmol/L Normal 3.7-5.3 [facility] Comment on above: Performed By: #### B C #### [facility] [address] [place] [address] [employer] Mechanic: Emiliano Henderson MD [address] [address] Venet[employer] Blind Mechanic: Raul Miller MD Protein [Mass/Vol] 6.4 g/dL Normal 6.4-8.3 [facility] Comment on above: Performed By: #### B C #### [facility] [address] [place] [address] [employer] Mechanic: Emiliano Henderson MD [address] [address] Venet[employer] Blind Mechanic: Raul Miller MD Sodium [Moles/Vol] 132 mmol/L Low 135-144 [facility] Comment on above: Performed By: #### B C #### [facility] [address] [place] [address] [employer] Mechanic: Emiliano Henderson MD [address] [address] Venet[employer] Blind Mechanic: Raul Miller MD Urea nitrogen [Mass/Vol] 13 mg/dL Normal 6-20 [facility] Comment on above: Performed By: #### B C #### [facility] [address] [facility] [place] [address] [employer] Mechanic: Emiliano Henderson MD [facility] [employer] [address] [place] [phone] [employer] Mechanic: Raul Miller MD FLUORO FOR SURGICAL PROCEDUR ESon 12-13-2023 FLUORO FOR SURGICAL PROCEDURES Radiology exam is complete. No Radiologist dictation. Please follow up with ordering provider. Final result Normal [facility] HCG, ,Urineon 12-12 Beta HCG ( test) Ql (U) Negative Normal NEG [facility] Comment on above: Result Comment: Spec imens with hCG levels near the threshold of the test (25 mIU/mL) may give a negative or indeterminate result. In such cases, another test should be performed with a new specimen in 48-72 hours. If early is suspected clinically in this setting, correlation with quantitative serum b-hCG level is suggested. Performed By: #### U LEVYO, UAX #### [facility] [address] [facility] [place] [address] [employer] Mechanic: Emiliano Henderson MD NA (Sodium)on 12-13-2023 Sodium [Moles/Vol] 137 mmol/L Normal 135-144 [facility] Comment on above: Performed By: #### B C #### [facility] [place] [address] [employer] Mechanic: Emiliano Henderson MD [facility] [employer] [address] [place] [address] [employer] Mechanic: Raul Miller MD Sodium [Moles/Vol] 136 mmol/L Normal 135-144 [facility] Comment on above: Performed By: #### U MICAO, UAX #### [facility] [address] [facility] [place] [address] [employer] Mechanic: Emiliano Henderson MD Sodium [Moles/Vol] 132 mmol/L Low 135-144 [facility] Comment on above: Performed By: #### B C #### [facility] [address] [place] [address] [employer] Mechanic: Emiliano Henderson MD [address] [address] Venetian Blind Mechanic: Raul Miller MD Osmolalityon 12-13-2023 Osmolality [Osmolality] 282 mosm/kg Normal 275-295 [facility] Comment on above: Performed By: #### B C #### [facility] [address] [place] [address] [employer] Mechanic: Emiliano Henderson MD [address] [address] Venet[employer] Blind Mechanic: Raul Miller MD Osmolality, Urineon 12-13-19 24 Osmolality - Urine 843 mOsm/kg Normal 80-1300 [facility] Comment on above: Performed By: #### U MICAO, UAX #### [facility] [address] [place] [address] [employer] Mechanic: Emiliano Henderson MD PTon 12-13-2023 INR Coag (PPP) [Relative time] 1.2 {INR} Normal [facility] Comment on above: Result Comment: Therapeutic Range: Moderate Anticoagulant Intensity: INR = 2.0-3.0 High Anticoagulant Intensity: INR = 2.5-3.5 Performed By: #### B C #### [facility] [address] [place] [address] [employer] Blind Mechanic: Emiliano Henderson MD [address] [address] Venetian Blind Mechanic: Raul Miller MD PT Coag (PPP) [Time] 14.8 s High 11.5-14.2 [facility] Comment on above: Performed By: #### B C #### [facility] [address] [place], [place] [phone] Venetian Blind Mechanic: Emiliano Henderson MD [facility] [address] [place], [place] [phone] Venet[employer] Blind Mechanic: Raul Miller MD Sodium, Random Uron 12-13-19 24 Sodium (U) [Moles/Vol] 36 mmol/L Normal [facility] Comment on above: Result Comment: No n ormal range established. Performed By: #### U MICAO, UAX #### [facility] [address] [place], [place] [id number] Venetian Blind Mechanic: Emiliano Henderson MD Surgical Pathology Reporton 12-13-2023 Surgical Pathology Report (NOTE) Path Number: [id number] -- Diagnosis -- A. STOMACH, BIOPSY: -MINIMAL TO MILD CHRONIC GASTRITIS -BY MIGUEL STAINING, HELICOBACTER PYLORI MICROORGANISMS ARE NOT IDENTIFIED B. STOMACH, BIOPSY: -FUNDIC GLAND POLYP C. DISTAL BILIARY STRICTURE, BIOPSY: -FRAGMENTS OF BENIGN COLUMNAR EPITHELIUM -FIBROUS CONNECTIVE TISSUE WITH ASSOCIATED INFLAMMATORY EXUDATE AND GRANULATION TISSUE -NEGATIVE FOR MALIGNANCY Ulysses Bustillos D.O. Electronically Signed Out 12/14/2023 Clinical Information Pre-Op Diagnosis: SEPSIS, DUE TO UNSPECIFIED ORGANISM, UNSPECIFIED WHETHER ACUTE ORGAN DYSFUNCTION PRESENT Operative Findings: GASTRIC BIOPSY; GASTRIC POLYP; DISTAL BILIARY STRUCTURE BIOPSY Operation Performed: ENDOSCOPIC RETROGRADE; ENDOSCOPIC ULTRASOUND; ESOPHAGOGASTRODUODENO SCOPY BIOPSY dw Source of Specimen A: GASTRIC BIOPSY B: GASTRIC POLYP C: DISTAL BILIARY STRICTURE BIOPSY Gross Description A. NATALEE ALCOCER, GASTRIC BIOPSY Received in formalin are two cabello-white tissue fragments, 0.2 x 0.1 x 0.1 cm and 0.6 x 0.2 x 0.1 cm. Entirely 1cs. B. NATALEE ALCOCER, GASTRIC POLYP Received in formalin are two cabello-white tissue fragments, 0.1 x 0.1 x < 0.1 cm and 0.5 x 0.2 x 0.2 cm. Entirely 1cs. C. NATALEE ALCOCER, DISTAL BILIARY STRICTURE BIOPSY Received in formalin is one cabello-white tissue fragment, 0.1 x < 0.1 x < 0.1 cm. Entirely 1cs. jj tm Ulysses Bustillos D.O./dw1:12/13/2023 Microscopic Description A-C. Microscopic examination performed. Processing Lab: [address] [address] Interpretation Performed at [address] [id number] SURGICAL PATHOLOGY CONSULTATION Patient Name: NATALEE ALCOCER [facility] Rec: [id number] [facility] ANATOMIC PATHOLOGY [address] [place] [address]. [place], [place] [address] Normal [facility] Surgical Pathology Report (NOTE) Path Number: [id number] INTERPRETATION EUS PORTAL HEPATIC LYMPH NODE BIOPSIES: NEGATIVE FOR MALIGNANCY. EUS PANCREATIC HEAD BIOPSY: NEGATIVE FOR MALIGNANCY. BILIARY STENT: NEGATIVE FOR MALIGNANCY. Electronically Signed Out Calderon Smyth M.D. thuy/12/14/2023 Source of Specimen: A: EUS PORTAL HEPATIC LYMPH NODE BIOPSIES B: EUS PANCREATIC HEAD BIOPSY C: BILIARY STENT Clinical History Sepsis due to unspecified organism, unspecified whether acute organ dysfunction present A41.9. Gross Description A. PORTAL HEPATIC LYMPH NODE BIOPSY are cores and fragments received in CytoLyt. One ThinPrep slide and one cellblock are prepared. A. PANCREATIC HEAD BIOPSY are cores and fragments received in CytoLyt. One ThinPrep slide and one cellblock are prepared. C. BILIARY STENT is one a foreign body received fresh. Specimen is vortexed in CytoLyt, and one cellblock is prepared. MICROSCOPIC DESCRIPTION Microscopic examination performed. A. The ThinPrep slide shows scattered benign lymphocytes. The cellblock slide shows small pieces of benign lymph node tissue, some with associated sinus histiocytes. No malignancy identified. B. The ThinPrep slide shows debris material and scant benign clusters of epithelial cells. The cellblock section shows small pieces of fat necrosis and separate pieces of benign epithelium. There are also scant pieces of fibroadipose tissue and background blood with neutrophils and lymphocytes. No malignancy identified. C. The cellblock section shows fragmented squamous epithelium and reactive appearing columnar epithelium. There are also scattered nests of bacterial colonies. No malignancy identified. Non Metal Filer Thin Prep x 1, Cell Block w/ MIGUEL x 1 Non Metal Filer Thin Prep x 1, Cell Block w/ MIGUEL x 1 Cell Block w/ MIGUEL x 1 Processing Lab: [address] [address] Interpretation performed at [address] [phone] NONGYNECOLOGICAL CYTOPATHOLOGY CONSULTATION Patient Name: NATALEE ALCOCER [facility] Rec: [id number] [facility] ANATOMIC PATHOLOGY [address] [place] [phone] Normal [facility] US ABDOMEN LIMITEDon 024 US ABDOMEN LIMITED EXAMINATION: RIGHT UPPER QUADRANT ULTRASOUND 12/13/2023 7:52 am COMPARISON: None. HISTORY: ORDERING SYSTEM PROVIDED HISTORY: transaminitis TECHNOLOGIST PROVIDED HISTORY: transaminitis FINDINGS: LIVER: The liver demonstrates normal echogenicity without evidence of intrahepatic biliary ductal dilatation. The liver measures 19 cm in length. BILIARY SYSTEM: Gallbladder is surgically absent. Common bile duct is not well visualized but likely normal in caliber. RIGHT KIDNEY: The right kidney is grossly unremarkable without evidence of hydronephrosis. PANCREAS: Pancreas not well visualized. OTHER: No evidence of right upper quadrant ascites. IMPRESSION: Unremarkable right upper quadrant ultrasound status post cholecystectomy. Interpreted by: Gavino Rosas MD Signed by: Gavino Rosas MD 12/13/23 Final result Normal [facility] XR CHEST PORTABLEon 12-13-19 XR CHEST PORTABLE EXAMINATION: ONE XRAY VIEW OF THE CHEST 12/13/2023 8:45 am COMPARISON: None. HISTORY: ORDERING SYSTEM PROVIDED HISTORY: Leukocytosis TECHNOLOGIST PROVIDED HISTORY: Leukocytosis Reason for Exam: port ap upright leukocytosis FINDINGS: The lungs are without acute focal process. There is no effusion or pneumothorax. The cardiomediastinal silhouette is without acute process. The osseous structures are without acute process. Monitor leads overlie the chest. IMPRESSION: No acute process. Interpreted by: Gael Bhatia MD Signed by: Gael Bhatia MD 12/13/23 Final result Normal [facility] Cult,Bloodon 12-07-2023 Cult,Blood Specimen Description .BLOOD Special Requests LAC 10ML Culture NO GROWTH 5 DAYS Report Status FINAL 12/07/2023 Normal [facility] Comment on above: Performed By: #### B C #### [facility] [address] [place], [place] [phone] [employer] Mechanic: Emiliano Henderson MD [facility] [employer] [address] [place] [phone] [employer] Mechanic: Raul Miller MD Cult,Blood Specimen Description .BLOOD Special Requests LAC 10ML Culture NO GROWTH 5 DAYS Report Status FINAL 12/07/2023 Normal [facility] Comment on above: Performed By: #### B C #### [facility] [address] [place], [place] [phone] [employer] Mechanic: Emiliano Henderson MD [facility] [employer] [address] [place] [phone] [employer] Mechanic: Raul Miller MD CBCon 12-03-2023 Erythrocyte distribution width (RBC) [Ratio] 13.3 % 11.8 - 14.4 % [facility] Hematocrit (Bld) [Volume fraction] 40.1 % 36.3 - 47.1 % [facility] Hemoglobin (Bld) [Mass/Vol] 12.9 g/dL 11.9 - 15.1 g/dL [facility] Interpretation and review of laboratory results Abnormal [facility] MCH (RBC) [Entitic mass] 29.5 pg 25.2 - 33.5 pg [facility] MCHC (RBC) [Mass/Vol] 32.2 g/dL 28.4 - 34.8 g/dL [facility] MCV (RBC) [Entitic vol] 91.8 fL 82.6 - 102.9 fL [facility] Platelet mean volume (Bld) [Entitic vol] 9.7 fL 8.1 - 13.5 fL [facility] Platelets (Bld) [#/Vol] 375 10*3/uL [facility] RBC (Bld) [#/Vol] 4.37 10*6/uL 3.95 - 5.1 1 m/uL [facility] WBC other (Bld) [#/Vol] 11.4 High [facility] Erythrocyte distribution width (RBC) [Ratio] 13.3 % Normal 11.8-14.4 [facility] Comment on above: Performed By: #### U MARCELINA UAX #### [facility] [place] [address] [employer]: Emiliano Henderson MD Hematocrit (Bld) [Volume fraction] 40.1 % Normal 36.3-47.1 [facility] Comment on above: Performed By: #### Chelly HEWITT, UAX #### [facility] [address] [place] [address]. [place] [address] [employer]: Emiliano Henderson MD Hemoglobin (Bld) [Mass/Vol] 12.9 g/dL Normal 11.9-15.1 [facility] Comment on above: Performed By: #### Chelly HEWITT UAX #### [facility] [address] [place] [address]. [place] [address] [employer]: Emiliano Henderson MD MCH (RBC) [Entitic mass] 29.5 pg Normal 25.2-33.5 [facility] Comment on above: Performed By: #### Chelly HEWITT UAX #### [facility] [facility] [place] [address] [employer]: Emiliano Henderson MD MCHC (RBC) [Mass/Vol] 32.2 g/dL Normal 28.4-34.8 [facility] Comment on above: Performed By: #### Chelly HEWITT, UAX #### [facility] [place] [address] [employer]: Emiliano Henderson MD MCV (RBC) [Entitic vol] 91.8 fL Normal 82.6-102.9 [facility] Comment on above: Performed By: #### U MARCELINA, UAX #### [facility] [address] [place] [address] [employer]: Emiliano Henderson MD Platelet mean volume (Bld) [Entitic vol] 9.7 fL Normal 8.1-13.5 [facility] Comment on above: Performed By: #### U MARCELINA, UAX #### [facility] [address] [place] [address] [employer]: Emiliano Henderson MD Platelets (Bld) [#/Vol] 375 10*3/uL Normal 138-453 [facility] Comment on above: Performed By: #### Chelly HEWITT, UAX #### [facility] [address] [place] [address] [employer]: Emiliano Henderson MD RBC (Bld) [#/Vol] 4.37 10*6/uL Normal 3.95-5.11 [facility] Comment on above: Performed By: #### Chelly HEWITT, UAX #### [facility] [facility] [place] [address] [employer]: Emiliano Henderson MD WBC (Bld) [#/Vol] 11.4 10*3/uL High 3.5-11.3 [facility] Comment on above: Performed By: #### U MARCELINA, UAX #### [facility] [facility] [place] [address] [employer]: Emiliano Henderson MD Comp Met+Bili/rfx MGon 12-02 Albumin [Mass/Vol] 3.9 g/dL Normal 3.5-5.2 [facility] Comment on above: Performed By: #### U MICAO, UAX #### [facility] [address] [place] [address] [employer]: Emiliano Henderson MD Alkaline Phos 296 U/L High 35-104 [facility] Comment on above: Performed By: #### U MICAO, UAX #### [facility] [address] [place] [address] [employer]: Emiliano Henderson MD ALT [Catalytic activity/Vol] 370 U/L High 5-33 [facility] Comment on above: Performed By: #### U MICAO, UAX #### [facility] [address] [place] [address] [employer]: Emiliano Henderson MD Anion gap [Moles/Vol] 14 mmol/L Normal 9-17 [facility] Comment on above: Performed By: #### U MICAO, UAX #### [facility] [address] [place] [address] [employer]: Emiliano Henderson MD AST [Catalytic activity/Vol] 120 U/L High <32 [facility] Comment on above: Performed By: #### U MICAO, UAX #### [facility] [address] [place] [address] [employer]: Emiliano Henderson MD Bilirubin [Mass/Vol] 3.0 mg/dL High 0.3-1.2 [facility] Comment on above: Performed By: #### U MICAO, UAX #### [facility] [address] [place] [address] [employer]: Emiliano Henderson MD Bilirubin, Indirect 1.1 mg/dL High 0.0-1.0 [facility] Comment on above: Performed By: #### U MICAO, UAX #### [facility] [address] [place] [address] [employer]: Emiliano Henderson MD Bilirubin.indirect [Mass/Vol] 1.9 mg/dL High <0.3 [facility] Comment on above: Performed By: #### U LEVYO, UAX #### [facility] [address] [place] [address] [employer]: Emiliano Henderson MD Calcium [Mass/Vol] 9.5 mg/dL Normal 8.6-10.4 [facility] Comment on above: Performed By: #### U LEVYO, UAX #### [facility] [place] [address] [employer]: Emiliano Henderson MD Chloride [Moles/Vol] 103 mmol/L Normal 98-107 [facility] Comment on above: Performed By: #### U MARCELINA, UAX #### [facility] [address] [place] [address] [employer]: Emiliano Henderson MD CO2 [Moles/Vol] 17 mmol/L Low 20-31 [facility] Comment on above: Performed By: #### U MARCELINA, UAX #### [facility] [facility] [place] [address] [employer]: Emiliano Henderson MD Creatinine [Mass/Vol] 0.6 mg/dL Normal 0.5-0.9 [facility] Comment on above: Result Comment: ICTE ROSIE SPECIMEN Performed By: #### U MARCELINA, UAX #### [facility] [place] [address] [employer]: Emiliano Henderson MD GFR/1.73 sq M.predicted among non-blacks MDRD (S/P/Bld) [Vol rate/Area] mL/min/{1.73_m2} Normal >60 [facility] Comment on above: Result Comment: These results are not intended for use in patients <18 years of age. eGFR results are calculated without a race factor using the 2020 CKD-EPI equation. Careful clinical correlation is recommended, particularly when comparing to results calculated using previous equations. The CKD-EPI equation is less accurate in patients with extremes of muscle mass, extra-renal metabolism of creatine, excessive creatine ingestion, or following therapy that affects renal tubular secretion. Performed By: #### U MICAO, UAX #### [facility] [address] [facility] [place] [address] [employer]: Emiliano Henderson MD Glucose [Mass/Vol] 98 mg/dL Normal 70-99 [facility] Comment on above: Performed By: #### U MICAO, UAX #### [facility] [place] [address] [employer]: Emiliano Henderson MD Potassium [Moles/Vol] 4.1 mmol/L Normal 3.7-5.3 [facility] Comment on above: Performed By: #### U MICAO, UAX #### [facility] [place] [address] [employer]: Emiliano Henderson MD Protein [Mass/Vol] 7.3 g/dL Normal 6.4-8.3 [facility] Comment on above: Performed By: #### U MICAO, UAX #### [facility] [facility] [place] [address] [employer]: Emiliano Henderson MD Sodium [Moles/Vol] 134 mmol/L Low 135-144 [facility] Comment on above: Performed By: #### U MICAO, UAX #### [facility] [address] [place], [place] [address] [employer]: Emiliano Henderson MD Urea nitrogen [Mass/Vol] 7 mg/dL Normal 6-20 [facility] Comment on above: Performed By: #### U MARCELINA UAX #### [facility] [address] [place] [address] [employer]: Emiliano Henderson MD Comprehensive Metabolic w/ B ilir Profile w/ Reflex to MGon 12-03-2023 Albumin [Mass/Vol] 3.9 g/dL 3.5 - 5.2 g/dL [facility] ALP [Catalytic activity/Vol] 296 U/L High 35 - 104 U/L [facility] ALT [Catalytic activity/Vol] 370 U/L High 5 - 33 U/L [facility] Anion gap [Moles/Vol] 14 mmol/L 9 - 17 mmol/L [facility] AST [Catalytic activity/Vol] 120 U/L High NINF - 32 U/L [facility] Bilirubin [Mass/Vol] 3.0 mg/dL High 0.3 - 1.2 mg/dL [facility] Bilirubin.direct [Mass/Vol] 1.9 mg/dL High [facility] mg/dL [facility] Bilirubin.indirect [Mass/Vol] 1.1 mg/dL High 0.0 - 1.0 mg/dL [facility] Calcium [Mass/Vol] 9.5 mg/dL 8.6 - 10. 4 mg/dL [facility] Chloride [Moles/Vol] 103 mmol/L 98 - 107 mmol/L [facility] CO2 [Moles/Vol] 17 mmol/L Low 20 - 31 mmol/L [facility] Creatinine [Mass/Vol] 0.6 mg/dL 0.5 - 0.9 mg/d L [facility] Comment on above: ICTERIC SPECIMEN Est, Glom Filt Rate - PINF [facility] Comment on above: These results are not intended for use in patients <18 years of age. eGFR results are calculated without a race factor using the 2020 CKD-EPI equation. Careful clinical correlation is recommended, particularly when comparing to results calculated using previous equations. The CKD-EPI equation is less accurate in patients with extremes of muscle mass, extra-renal metabolism of creatine, excessive creatine ingestion, or following therapy that affects renal tubular secretion. Glucose [Mass/Vol] 98 mg/dL 70 - 99 mg/dL [facility] Interpretation and review of laboratory results Abnormal [facility] Potassium [Moles/Vol] 4.1 mmol/L 3.7 - 5.3 mmol/L [facility] Protein [Mass/Vol] 7.3 g/dL 6.4 - 8.3 g/dL [facility] Sodium [Moles/Vol] 134 mmol/L Low 135 - 144 mmol/L [facility] Urea nitrogen [Mass/Vol] 7 mg/dL 6 - 20 mg/dL [facility] Phosphoruson 12-03-2023 Interpretation and review of laboratory results Abnormal [facility] Phosphate [Mass/Vol] 2.0 mg/dL Low 2.6 - 4.5 mg/dL [facility] Phosphorus, Inorg.on 024 Phosphorus, Inorg. 2.0 mg/dL Low 2.6-4.5 [facility] Comment on above: Performed By: #### U HARIKA HEWITT #### [facility] [address] [place] [address] [employer]: Emiliano Henderson MD CBC auto differentialon 11-08 Basophils (Bld) [#/Vol] 0.05 10*3/uL [facility] Basophils/100 WBC (Bld) 0 % 0 - 2 % [facility] Eosinophils (Bld) [#/Vol] 0.03 10*3/uL [facility] Eosinophils/100 WBC (Bld) 0 % Low 1 - 4 % [facility] Erythrocyte distribution width (RBC) [Ratio] 13.5 % 11.8 - 14.4 % [facility] Hematocrit (Bld) [Volume fraction] 40.4 % 36.3 - 47.1 % [facility] Hemoglobin (Bld) [Mass/Vol] 13.1 g/dL 11.9 - 15.1 g/dL [facility] Immature granulocytes (Bld) [#/Vol] 0.10 10*3/uL [facility] Immature granulocytes/100 WBC (Bld) 1 % High 0 [facility] Interpretation and review of laboratory results Abnormal [facility] Lymphocytes/100 WBC (Bld) 14 % Low 24 - 43 % [facility] Lymphocytes/100 WBC (Bld) 1.85 % [facility] MCH (RBC) [Entitic mass] 29.6 pg 25.2 - 33.5 pg [facility] MCHC (RBC) [Mass/Vol] 32.4 g/dL 28.4 - 34.8 g/dL [facility] MCV (RBC) [Entitic vol] 91.4 fL 82.6 - 102.9 fL [facility] Monocytes/100 WBC (Bld) 7 % 3 - 12 % [facility] Monocytes/100 WBC (Bld) 0.98 % [facility] Neutrophils/100 WBC (Bld) 78 % High 36 - 65 % [facility] Nucleated RBC/100 WBC (Bld) [Ratio] 0.0 % 0.0 per 100 WBC [facility] Platelet mean volume (Bld) [Entitic vol] 9.7 fL 8.1 - 13.5 fL [facility] Platelets (Bld) [#/Vol] 352 10*3/uL [facility] RBC (Bld) [#/Vol] 4.42 10*6/uL 3.95 - 5.1 1 m/uL [facility] Segmented neutrophils/100 WBC (Bld) 10.41 % High [facility] WBC other (Bld) [#/Vol] 13.4 High [facility] CBC with Diffon 12-02-2023 Abs. Basophil 0.05 k/uL Normal 0.00-0.20 [facility] Comment on above: Performed By: #### L IP, CMPX, CDP, PT, MG, NOEL #### [facility] [facility] [place] [address] [employer]: Emiliano Henderson MD Abs.Imm.Granulocyte 0.10 k/uL Normal 0.00-0.30 [facility] Comment on above: Performed By: #### L IP, CMPX, CDP, PT, MG, NOEL #### [facility] [address] [place] [address]. [place] [address] [employer]: Emiliano Henderson MD Abs.Neutrophil (Seg) 10.41 k/uL High 1.50-8.10 [facility] Comment on above: Performed By: #### L IP, CMPX, CDP, PT, MG, NOEL #### [facility] [address] [place] [address]. [place] [address] [employer]: Emiilano Henderson MD Basophils/100 WBC (Bld) 0 % Normal 0-2 [facility] Comment on above: Performed By: #### L IP, CMPX, CDP, PT, MG, NOEL #### [facility] [address] [place] [address] [employer]: Emiliano Henderson MD Eosinophils (Bld) [#/Vol] 0.03 10*3/uL Normal 0.00-0.44 [facility] Comment on above: Performed By: #### L IP, CMPX, CDP, PT, MG, NOEL #### [facility] [address] [place] [address]. [place] [address] [employer]: Emiliano Henderson MD Eosinophils/100 WBC (Bld) 0 % Low 1-4 [facility] Comment on above: Performed By: #### L IP, CMPX, CDP, PT, MG, NOEL #### [facility] [address] [place] [address]. [place] [address] [employer]: Emiliano Henderson MD Erythrocyte distribution width (RBC) [Ratio] 13.5 % Normal 11.8-14.4 [facility] Comment on above: Performed By: #### L IP, CMPX, CDP, PT, MG, NOEL #### [facility] [address] [place] [address] [employer]: Emiliano Henderson MD Hematocrit (Bld) [Volume fraction] 40.4 % Normal 36.3-47.1 [facility] Comment on above: Performed By: #### L IP, CMPX, CDP, PT, MG, NOEL #### [facility] [address] [place], [place] [address]ia [facility] [place] [address] [employer]: Emiliano Henderson MD Hemoglobin (Bld) [Mass/Vol] 13.1 g/dL Normal 11.9-15.1 [facility] Comment on above: Performed By: #### L IP, CMPX, CDP, PT, MG, NOEL #### [facility] [address] [place], [place] [address] [place] [address] [employer]: Emiliano Henderson MD Immature granulocytes/100 WBC (Bld) 1 % High 0 [facility] Comment on above: Performed By: #### L IP, CMPX, CDP, PT, MG, NOEL #### [facility] [address] [place], [place] [address] [place] [address] [employer]: Emiliano Henderson MD Lymphocytes (Bld) [#/Vol] 1.85 10*3/uL Normal 1.10-3.70 [facility] Comment on above: Performed By: #### L IP, CMPX, CDP, PT, MG, NOEL #### [facility] [place] [address] [employer]: Emiliano Henderson MD Lymphocytes/100 WBC (Bld) 14 % Low 24-43 [facility] Comment on above: Performed By: #### L IP, CMPX, CDP, PT, MG, NOEL #### [facility] [address] [place] [address] [employer]: Emiliano Henderson MD MCH (RBC) [Entitic mass] 29.6 pg Normal 25.2-33.5 [facility] Comment on above: Performed By: #### L IP, CMPX, CDP, PT, MG, NOEL #### [facility] [address] [place] [address] [employer]: Emiliano Henderson MD MCHC (RBC) [Mass/Vol] 32.4 g/dL Normal 28.4-34.8 [facility] Comment on above: Performed By: #### L IP, CMPX, CDP, PT, MG, NOEL #### [facility] [address] [place] [address] [employer]: Emiliano Henderson MD MCV (RBC) [Entitic vol] 91.4 fL Normal 82.6-102.9 [facility] Comment on above: Performed By: #### L IP, CMPX, CDP, PT, MG, NOEL #### [facility] [address] [place] [address] [employer]: Emiliano Henderson MD Monocytes (Bld) [#/Vol] 0.98 10*3/uL Normal 0.10-1.20 [facility] Comment on above: Performed By: #### L IP, CMPX, CDP, PT, MG, NOEL #### [facility] [address] [place] [address] [employer]: Emiliano Henderson MD Monocytes/100 WBC (Bld) 7 % Normal 3-12 [facility] Comment on above: Performed By: #### L IP, CMPX, CDP, PT, MG, NOEL #### [facility] [address] [place] [address] [employer]: Emiliano Henderson MD Neutrophil (Seg) 78 % High 36-65 [facility] Comment on above: Performed By: #### L IP, CMPX, CDP, PT, MG, NOEL #### [facility] [address] [place] [address] [employer]: Emiliano Henderson MD NRBC Automated 0.0 per 100 WBC Normal 0.0 [facility] Comment on above: Performed By: #### L IP, CMPX, CDP, PT, MG, NOEL #### [facility] [place] [address] [employer]: Emiliano Henderson MD Platelet mean volume (Bld) [Entitic vol] 9.7 fL Normal 8.1-13.5 [facility] Comment on above: Performed By: #### L IP, CMPX, CDP, PT, MG, NOEL #### [facility] [address] [place], [place] [address] [place] [address] [employer]: Emiliano Henderson MD Platelets (Bld) [#/Vol] 352 10*3/uL Normal 138-453 [facility] Comment on above: Performed By: #### L IP, CMPX, CDP, PT, MG, NOEL #### [facility] [place] [address] [employer]: Emiliano Henderson MD RBC (Bld) [#/Vol] 4.42 10*6/uL Normal 3.95-5.11 [facility] Comment on above: Performed By: #### L IP, CMPX, CDP, PT, MG, NOEL #### [facility] [place] [address] [employer]: Emiliano Henderson MD WBC (Bld) [#/Vol] 13.4 10*3/uL High 3.5-11.3 [facility] Comment on above: Performed By: #### L IP, CMPX, CDP, PT, MG, NOEL #### [facility] [address] [facility] [place] [address] [employer]: Emiliano Henderson MD Comp Metabolic Pr/rfx MGon 0 12-02-2023 Albumin [Mass/Vol] 4.1 g/dL Normal 3.5-5.2 [facility] Comment on above: Performed By: #### L IP, CMPX, CDP, PT, MG, NOEL #### [facility] [address] [place] [address] [employer]: Emiliano Henderson MD Alkaline Phos 269 U/L High 35-104 [facility] Comment on above: Performed By: #### L IP, CMPX, CDP, PT, MG, NOEL #### [facility] [address] [place] [address] [employer]: Emiliano Henderson MD ALT [Catalytic activity/Vol] 352 U/L High 5-33 [facility] Comment on above: Performed By: #### L IP, CMPX, CDP, PT, MG, NOEL #### [facility] [address] [place] [address]. [place] [address] [employer]: Emiliano Henderson MD Anion gap [Moles/Vol] 19 mmol/L High 9-17 [facility] Comment on above: Performed By: #### L IP, CMPX, CDP, PT, MG, NOEL #### [facility] [address] [place] [address] [employer]: Emiliano Henderson MD AST [Catalytic activity/Vol] 108 U/L High <32 [facility] Comment on above: Performed By: #### L IP, CMPX, CDP, PT, MG, NOEL #### [facility] [address] [place] [address] [employer]: Emiliano Henderson MD Bilirubin [Mass/Vol] 5.9 mg/dL High 0.3-1.2 [facility] Comment on above: Performed By: #### L IP, CMPX, CDP, PT, MG, NOEL #### [facility] [address] [place] [address] [employer]: Emiliano Henderson MD BUN/CRE Ratio 10 Normal 9-20 [facility] Comment on above: Performed By: #### L IP, CMPX, CDP, PT, MG, NOEL #### [facility] [address] [place], [place] [address] [place] [address] [employer]: Emiliano Henderson MD Calcium [Mass/Vol] 9.2 mg/dL Normal 8.6-10.4 [facility] Comment on above: Performed By: #### L IP, CMPX, CDP, PT, MG, NOEL #### [facility] [address] [place] [address] [employer]: Emiliano Henderson MD Chloride [Moles/Vol] 103 mmol/L Normal 98-107 [facility] Comment on above: Performed By: #### L IP, CMPX, CDP, PT, MG, NOEL #### [facility] [address] [place] [address] [employer]: Emiliano Henderson MD CO2 [Moles/Vol] 12 mmol/L Low 20-31 [facility] Comment on above: Performed By: #### L IP, CMPX, CDP, PT, MG, NOEL #### [facility] [address], [place] [id number] [employer]ic: Emiliano Henderson MD Creatinine [Mass/Vol] 0.6 mg/dL Normal 0.5-0.9 [facility] Comment on above: Result Comment: ICTE ROSIE SPECIMEN Performed By: #### L IP, CMPX, CDP, PT, MG, NOEL #### [facility] [address] [facility] [place], [place] [id number] [employer]: Emiliano Henderson MD GFR/1.73 sq M.predicted among non-blacks MDRD (S/P/Bld) [Vol rate/Area] mL/min/{1.73_m2} Normal >60 [facility] Comment on above: Result Comment: These results are not intended for use in patients <18 years of age. eGFR results are calculated without a race factor using the 2020 CKD-EPI equation. Careful clinical correlation is recommended, particularly when comparing to results calculated using previous equations. The CKD-EPI equation is less accurate in patients with extremes of muscle mass, extra-renal metabolism of creatine, excessive creatine ingestion, or following therapy that affects renal tubular secretion. Performed By: #### L IP, CMPX, CDP, PT, MG, NOEL #### [facility] [place] [address] [employer]: Emiliano Henderson MD Glucose [Mass/Vol] 65 mg/dL Low 70-99 [facility] Comment on above: Performed By: #### L IP, CMPX, CDP, PT, MG, NOEL #### [facility] [address] [facility] [place] [address] [employer]: Emiliano Henderson MD Potassium [Moles/Vol] 4.3 mmol/L Normal 3.7-5.3 [facility] Comment on above: Performed By: #### L IP, CMPX, CDP, PT, MG, NOEL #### [facility] [place], [place] [id number] [employer]: Emiliano Henderson MD Protein [Mass/Vol] 7.4 g/dL Normal 6.4-8.3 [facility] Comment on above: Performed By: #### L IP, CMPX, CDP, PT, MG, NOEL #### [facility] [address] [place], [place] [id number] [employer]: Emiliano Henderson MD Sodium [Moles/Vol] 134 mmol/L Low 135-144 [facility] Comment on above: Performed By: #### L IP, CMPX, CDP, PT, MG, NOEL #### [facility] [address] [facility] [place], [place] [id number] [employer]: Emiliano Henderson MD Urea nitrogen [Mass/Vol] 6 mg/dL Normal 6-20 [facility] Comment on above: Performed By: #### L IP, CMPX, CDP, PT, MG, NOEL #### [facility] [address] [facility] [place], [place] [id number] [employer]: Emiliano Henderson MD Comprehensive Metabolic Pane l w/ Reflex to MGon 12-02-2023 Albumin [Mass/Vol] 4.1 g/dL 3.5 - 5.2 g/dL [facility] ALP [Catalytic activity/Vol] 269 U/L High 35 - 104 U/L [facility] ALT [Catalytic activity/Vol] 352 U/L High 5 - 33 U/L [facility] Anion gap [Moles/Vol] 19 mmol/L High 9 - 17 mmol/L [facility] AST [Catalytic activity/Vol] 108 U/L High NINF - 32 U/L [facility] Bilirubin [Mass/Vol] 5.9 mg/dL High 0.3 - 1.2 mg/dL [facility] Calcium [Mass/Vol] 9.2 mg/dL 8.6 - 10. 4 mg/dL [facility] Chloride [Moles/Vol] 103 mmol/L 98 - 107 mmol/L [facility] CO2 [Moles/Vol] 12 mmol/L Low 20 - 31 mmol/L [facility] Creatinine [Mass/Vol] 0.6 mg/dL 0.5 - 0.9 mg/d L [facility] Comment on above: ICTERIC SPECIMEN Est, Max Swan Rate - PINF [facility] Comment on above: These results are not intended for use in patients <18 years of age. eGFR results are calculated without a race factor using the 2020 CKD-EPI equation. Careful clinical correlation is recommended, particularly when comparing to results calculated using previous equations. The CKD-EPI equation is less accurate in patients with extremes of muscle mass, extra-renal metabolism of creatine, excessive creatine ingestion, or following therapy that affects renal tubular secretion. Glucose [Mass/Vol] 65 mg/dL Low 70 - 99 mg/dL [facility] Potassium [Moles/Vol] 4.3 mmol/L 3.7 - 5.3 mmol/L [facility] Protein [Mass/Vol] 7.4 g/dL 6.4 - 8.3 g/dL [facility] Sodium [Moles/Vol] 134 mmol/L Low 135 - 144 mmol/L [facility] Urea nitrogen [Mass/Vol] 6 mg/dL 6 - 20 mg/dL [facility] Urea nitrogen/Creatinine [Mass ratio] 10 mg/mg 9 - 20 [facility] FLUORO FOR SURGICAL PROCEDUR ESon 12-02-2023 FLUORO FOR SURGICAL PROCEDURES Radiology exam is complete. No Radiologist dictation. Please follow up with ordering provider. Final result Normal [facility] Guidance-- during surgeryon 12-02-2023 Radiology exam is complete. No Radiologist dictation. Please follow up with ordering provider. [facility] RIS CONSOLIDATED Lipaseon 12-02-2023 Lipase [Catalytic activity/Vol] 49 U/L 13 - 60 U/L [facility] Lipase [Catalytic activity/Vol] 49 U/L Normal 13-60 [facility] Comment on above: Performed By: #### L IP, CMPX, CDP, PT, MG, NOEL #### [facility] [address] [place], [place] [phone] [employer]: Emiliano Henderson MD Magnesiumon 12-02-2023 Magnesium [Mass/Vol] 1.9 mg/dL 1.6 - 2.6 mg/dL [facility] Magnesium [Mass/Vol] 1.9 mg/dL Normal 1.6-2.6 [facility] Comment on above: Performed By: #### L IP, CMPX, CDP, PT, MG, NOEL #### [facility] [address], [place] [id number] [employer]ic: Emiliano Henderson MD Microscopic Urinalysison Bacteria LM Ql (Urine sed) RARE Abnormal None [facility] Epithelial cells LM.HPF (Urine sed) [#/Area] 0 TO 2 [facility] Interpretation and review of laboratory results Abnormal [facility] RBC LM.HPF (Urine sed) [#/Area] None [facility] WBC LM.HPF (Urine sed) [#/Area] None [facility] No Panel Informationon 12-01 Interpretation and review of laboratory results Abnormal [facility] PTon 12-02-2023 INR Coag (PPP) [Relative time] 1.1 {INR} Normal [facility] Comment on above: Result Comment: Therapeutic Range: Moderate Anticoagulant Intensity: INR = 2.0-3.0 High Anticoagulant Intensity: INR = 2.5-3.5 Performed By: #### L IP, CMPX, CDP, PT, MG, NOEL #### [facility] [address] [facility] [place] [address] [employer]ic: Emiliano Henderson MD PT Coag (PPP) [Time] 14.0 s Normal 11.5-14.2 [facility] Comment on above: Performed By: #### L IP, CMPX, CDP, PT, MG, NOEL #### [facility] [address] [facility] [place], [place] [phone] [employer]ic: Emiliano Henderson MD Phosphoruson 12-02-2023 Phosphate [Mass/Vol] 1.5 mg/dL Low 2.6 - 4.5 mg/dL [facility] Phosphorus, Inorg.on 024 Phosphorus, Inorg. 1.5 mg/dL Low 2.6-4.5 [facility] Comment on above: Performed By: #### L IP, CMPX, CDP, PT, MG, NOEL #### [facility] [address] [place] [address] [employer]: Emiliano Henderson MD Protime-INRon 12-02-2023 INR Coag (PPP) [Relative time] 1.1 {INR} [facility] Comment on above: Therapeutic Range: Moderate Anticoagulant Intensity: INR = 2.0-3.0 High Anticoagulant Intensity: INR = 2.5-3.5 PT Coag (PPP) [Time] 14.0 s [facility] UA w/Reflex Cultureon 2023 Bilirubin, SemiQt,Ur Presumptive positiv e. Unable to confirm due to unavailability of reagent. Abnormal NEG [facility] Comment on above: Performed By: #### U MICAO, UAX #### [facility] [address] [place] [address] [employer]ic: Emiliano Henderson MD Blood, Urine Negative Normal NEG [facility] Comment on above: Performed By: #### U MICAO, UAX #### [facility] [address] [place] [address] [employer]ic: Emiliano Henderson MD Clarity (U) Clear Normal CLEAR [facility] Comment on above: Performed By: #### U MICAO, UAX #### [facility] [address] [place], [place] [address] [employer]ic: Emiliano Henderson MD Color (U) Yellow Normal YEL [facility] Comment on above: Performed By: #### U MICAO, UAX #### [facility] [address] [place] [address]. [place] [address] [employer]ic: Emiliano Henderson MD Glucose Ql (U) Negative Normal NEG [facility] Comment on above: Performed By: #### U MICAO, UAX #### [facility] [address] [place] [address]. [place] [address] [employer]ic: Emiliano Henderson MD Ketones Ql (U) 3+ mg/dL Abnormal NEG [facility] Comment on above: Performed By: #### U MICAO, UAX #### [facility] [address] [place] [address]. [place] [address] [employer]ic: Emiliano Henderson MD Leukocyte esterase Test strip Ql (U) Negative Normal NEG [facility] Comment on above: Performed By: #### U MICAO, UAX #### [facility] [address] [place] [address]. [place] [address] [employer]ic: Emiliano Henderson MD Nitrite,Ur Negative Normal NEG [facility] Comment on above: Performed By: #### U MICAO, UAX #### [facility] [address] [place] [address]. [place] [address] [employer]ic: Emiliano Henderson MD PH,Ur 5.5 Normal 5.0-8.0 [facility] Comment on above: Performed By: #### U MICAO, UAX #### [facility] [address] [place] [address]. [place] [address] [employer]ic: Emiliano Henderson MD Protein Ql (U) TRACE Abnormal NEG [facility] Comment on above: Performed By: #### U MICAO, UAX #### [facility] [address] [place], [place] [phone] [employer]ic: Emiliano Henderson MD Spec. [place],Ur 1.024 Normal 1.005-1.030 [facility] Comment on above: Performed By: #### U MICAO, UAX #### [facility] [address] [place] [address]. [place], [place] [id number] [employer]ic: Emiliano Henderson MD Urobilinogen,Ur Normal Normal 0.0-1.0 [facility] Comment on above: Performed By: #### U MICAO, UAX #### [facility] [address] [place] [id number] [employer]ic: Emiliano Henderson MD Urinalysis with Reflex to Cu ltureon 12-02-2023 Bilirubin Ql (U) Presumptive positive . Unable to confirm due to unavailability of reagent. Abnormal NEGATIVE [facility] Clarity (U) Clear Clear [facility] Color (U) Yellow Yellow [facility] Glucose Test strip (U) [Mass/Vol] Negative NEGATIVE mg/dL [facility] Hemoglobin Auto test strip Ql (U) Negative NEGATIVE [facility] Interpretation and review of laboratory results Abnormal [facility] Ketones (U) [Mass/Vol] 3+ Abnormal NEGATIVE mg/dL [facility] Leukocyte esterase Test strip Ql (U) Negative NEGATIVE [facility] Nitrite Ql (U) Negative NEGATIVE [facility] pH (U) 5.5 [pH] 5.0 - 8.0 [facility] Protein (U) [Mass/Vol] TRACE Abnormal NEGATIVE mg/dL [facility] Specific gravity (U) [Rel density] 1.024 1.005 - 1.030 [facility] Urobilinogen Qn (U) Normal 0.0 - 1.0 EU/dL [facility] Urinalysis,Microon 4 Bacteria RARE Abnormal NONE [facility] Comment on above: Performed By: #### U MICAO, UAX #### [facility] [address] [place] [address] [employer]ic: Emiliano Henderson MD Epithelial cells LM Ql (Urine sed) 0 TO 2 Normal 0-5 [facility] Comment on above: Performed By: #### U MICAO, UAX #### [facility] [address] [facility] [place] [address] [employer]ic: Emiliano Henderson MD Urine RBC's None Normal 0-2 [facility] Comment on above: Performed By: #### U LEVYO, UAX #### [facility] [address] [facility] [place] [address] [employer]ic: Emiliano Henderson MD Urine WBC's None Normal 0-5 [facility] Comment on above: Performed By: #### U LEVYO, UAX #### [facility] [address] [facility] [place] [address] [employer]ic: Emiliano Henderson MD CBCon 12-01-2023 Erythrocyte distribution width (RBC) [Ratio] 13.3 % 11.8 - 14.4 % [facility] Hematocrit (Bld) [Volume fraction] 42.9 % 36.3 - 47.1 % [facility] Hemoglobin (Bld) [Mass/Vol] 13.7 g/dL 11.9 - 15.1 g/dL [facility] Interpretation and review of laboratory results Abnormal [facility] MCH (RBC) [Entitic mass] 29.8 pg 25.2 - 33.5 pg [facility] MCHC (RBC) [Mass/Vol] 31.9 g/dL 28.4 - 34.8 g/dL [facility] MCV (RBC) [Entitic vol] 93.3 fL 82.6 - 102.9 fL [facility] Nucleated RBC/100 WBC (Bld) [Ratio] 0.0 % 0.0 per 100 WBC [facility] Platelet mean volume (Bld) [Entitic vol] 9.6 fL 8.1 - 13.5 fL [facility] Platelets (Bld) [#/Vol] 323 10*3/uL [facility] RBC (Bld) [#/Vol] 4.60 10*6/uL 3.95 - 5.1 1 m/uL [facility] WBC other (Bld) [#/Vol] 14.2 High [facility] Erythrocyte distribution width (RBC) [Ratio] 13.3 % Normal 11.8-14.4 [facility] Comment on above: Performed By: #### Chelly HEWITT UAX #### [facility] [place], [place] [phone] [employer]ic: Emiliano Henderson MD Hematocrit (Bld) [Volume fraction] 42.9 % Normal 36.3-47.1 [facility] Comment on above: Performed By: #### Chelly HEWITT, UAX #### [facility] [place], [place] [address] [employer]ic: Emiliano Henderson MD Hemoglobin (Bld) [Mass/Vol] 13.7 g/dL Normal 11.9-15.1 [facility] Comment on above: Performed By: #### Chelly HEWITT, UAX #### [facility] [place] [address] [employer]ic: Emiliano Henderson MD MCH (RBC) [Entitic mass] 29.8 pg Normal 25.2-33.5 [facility] Comment on above: Performed By: #### U MARCELINA, UAX #### [facility] [place], [place] [address] [employer]ic: Emiliano Henderson MD MCHC (RBC) [Mass/Vol] 31.9 g/dL Normal 28.4-34.8 [facility] Comment on above: Performed By: #### U LEVYO, UAX #### [facility] [address] [place] [address] [employer]ic: Emiliano Henderson MD MCV (RBC) [Entitic vol] 93.3 fL Normal 82.6-102.9 [facility] Comment on above: Performed By: #### U LEVYO, UAX #### [facility] [address] [place] [address] [employer]ic: Emiliano Henderson MD NRBC Automated 0.0 per 100 WBC Normal 0.0 [facility] Comment on above: Performed By: #### U LEVYO, UAX #### [facility] [address] [place], [place] [address] [place] [address] [employer]ic: Emiliano Henderson MD Platelet mean volume (Bld) [Entitic vol] 9.6 fL Normal 8.1-13.5 [facility] Comment on above: Performed By: #### U MARCELINA, UAX #### [facility] [address] [place], [place] [address] [address] [employer]ic: Emiliano Henderson MD Platelets (Bld) [#/Vol] 323 10*3/uL Normal 138-453 [facility] Comment on above: Performed By: #### U LEVYO, UAX #### [facility] [place] [address] [employer]ic: Emiliano Henderson MD RBC (Bld) [#/Vol] 4.60 10*6/uL Normal 3.95-5.11 [facility] Comment on above: Performed By: #### U LEVYO, UAX #### [facility] [place] [address] [employer]ic: Emiliano Henderson MD WBC (Bld) [#/Vol] 14.2 10*3/uL High 3.5-11.3 [facility] Comment on above: Performed By: #### U HARIKA HEWITT #### [facility] [address] [place] [address] [employer]ic: Emiliano Henderson MD Procalcitoninon 12-01-2023 Interpretation and review of laboratory results Abnormal [facility] Procalcitonin [Mass/Vol] 0.14 ng/mL High 0.00 - 0.09 ng/mL [facility] Comment on above: Suspected Sepsis: <0.50 ng/mL Low likelihood of sepsis. 0.50-2.00 ng/mL Increased likelihood of sepsis. Antibiotics encouraged. >2.00 ng/mL High risk of sepsis/shock. Antibiotics strongly encouraged. Suspected Lower Resp Tract Infections: <0.24 ng/mL Low likelihood of bacterial infection. >0.24 ng/mL Increased likelihood of bacterial infection. Antibiotics encouraged. With successful antibiotic therapy, PCT levels should decrease rapidly. (Half-life of 24 to 36 hours.) Procalcitonin values from samples collected within the first 6 hours of systemic infection may still be low. Retesting may be indicated. Values from day 1 and day 4 can be entered into the Change in Procalcitonin Calculator (www.xfuoqk-jkx-mpmqhrxmze.BEZ Systems) to determine the patient's Mortality Risk Prognosis In healthy neonates, plasma Procalcitonin (PCT) concentrations increase gradually after , reaching peak values at about 24 hours of age then decrease to normal values below 0.5 ng/mL by 48-72 hours of age. [facility] Procalcitonin 0.14 ng/mL High 0.00-0.09 [facility] Comment on above: Result Comment: Suspected Sepsis: <0.50 ng/mL Low likelihood of sepsis. 0.50-2.00 ng/mL Increased likelihood of sepsis. Antibiotics encouraged. >2.00 ng/mL High risk of sepsis/shock. Antibiotics strongly encouraged. Suspected Lower Resp Tract Infections: <0.24 ng/mL Low likelihood of bacterial infection. >0.24 ng/mL Increased likelihood of bacterial infection. Antibiotics encouraged. With successful antibiotic therapy, PCT levels should decrease rapidly. (Half-life of 24 to 36 hours.) Procalcitonin values from samples collected within the first 6 hours of systemic infection may still be low. Retesting may be indicated. Values from day 1 and day 4 can be entered into the Change in Procalcitonin Calculator (www.eepshq-rcv-qwwsdqurns.com) to determine the patient's Mortality Risk Prognosis In healthy neonates, plasma Procalcitonin (PCT) concentrations increase gradually after , reaching peak values at about 24 hours of age then decrease to normal values below 0.5 ng/mL by 48-72 hours of age. Performed By: #### U MARCELINA UAX #### [facility] [address] [facility] [place], [place] [address] [employer]ic: Emiliano Henderson MD HCG ( test) Ql (U)o n 11-30-2023 Beta HCG ( test) Ql (U) Negative Normal NEG [facility] Comment on above: Performed By: #### 2 106-3 #### [facility] ([id number]) [address] [place] [address], [place] [address] Surgical Pathologyon 024 Surgical Pathology Normal [facility] Comment on above: Result Comment: [facility] [address] [place] [address] Surgical Pathology Consultation Patient Name:NATALEE ALCOCER:1995 (Age: 28)Gender:FTaken:4Reported:12/05/2023hysician(s):Hui Betts D.O. ([phone])Copy To: Rec. #:[id number]: #[id number] Final Pathologic Diagnosis Gallbladder, cholecystectomy: Cholesterolosis. Cholelithiasis. Benign lymph node. Report Electronically Signed Out nxk/12/05/2023Paolo Dc MD Interpretation performed at [facility], [address] [place] [address], License number: [id number]. Clinical History Cholelithiasis, chronic cholecystitis. Gross Description Received in formalin labeled shimer, gallbladder is a disrupted gallbladder, 7.5 x [...] from 0.1 to 0.3 cm in thickness. Professor Of Geology sections of the gallbladder are submitted in cassette B. (2, ss, [id number], A???B, m2) JG g/12/01/2023SSI Specimen(s) Received Gallbladder Fee Codes(s): 1; 05917 COMPLETE BLOOD COUNTon 11-28 Erythrocyte distribution width (RBC) [Ratio] 13.0 % Normal 11.5-15.0 [facility] Comment on above: Performed By: #### C MIGDALIA MARTELL, 3040-3 #### [facility] ([id number]) [address], [address] [place] [address] Hematocrit (Bld) [Volume fraction] 39.5 % Normal 35-47 [facility] Comment on above: Performed By: #### C MIGDALIA MARTELL, 3040-3 #### [facility] ([id number]) [address] [place] [address] Hemoglobin (Bld) [Mass/Vol] 13.2 g/dL Normal 11.7-15.5 [facility] Comment on above: Performed By: #### C MIGDALIA MARTELL, 0-3 #### [facility] ([id number]) [address], [address] [place] [address] MCH (RBC) [Entitic mass] 29.7 pg Normal 27-34 [facility] Comment on above: Performed By: #### Karina BC, CMP, 3039-3 #### [facility] ([id number]) [address], [facility] [address] [place] [address] MCHC (RBC) [Mass/Vol] 33.5 g/dL Normal 32-[address] [facility] Comment on above: Performed By: #### Karina MARTELL, CMP, 3039-3 #### [facility] ([id number]) [address] [address] [place] [address] MCV (RBC) [Entitic vol] 89 fL Normal 80-100 [facility] Comment on above: Performed By: #### Karina MARTELL, CMP, 3039-3 #### [facility] ([id number]) [address] [place] [address] Platelet mean volume (Bld) [Entitic vol] 8.5 fL Normal 7-12 [facility] Comment on above: Performed By: #### Karina BC, CMP, 3039-3 #### [facility] ([id number]) [address] [address] [place] [address] Platelets (Bld) [#/Vol] 346 10*3/uL Normal 150-450 [facility] Comment on above: Performed By: #### Karina BC, CMP, 3039-3 #### [facility] ([id number]) [address] [address] [place] [address] RBC COUNT 4.44 X10E12/L Normal 3.80-5.20 [facility] Comment on above: Performed By: #### Karina BC, CMP, 3039-3 #### [facility] ([id number]) [address] [place] [address] WBC (Bld) [#/Vol] 11.5 10*3/uL High 4.0-11.0 [facility] Comment on above: Performed By: #### Karina MARTELL CMP, 3040-3 #### [facility] ([id number]) [address], [address] [place] [address] COMPREHENSIVE METABOLIC PANE Jose 11-29-2023 Albumin [Mass/Vol] 4.6 g/dL Normal 3.2-5.3 [facility] Comment on above: Performed By: #### Karina MARTELL CMP, 0-3 #### [facility] ([id number]) [address], [address] [place] [address] ALP [Catalytic activity/Vol] 176 U/L High 39-130 [facility] Comment on above: Performed By: #### Karina MARTELL CMP, 3039-3 #### [facility] ([id number]) [address] [place] [address] ALT [Catalytic activity/Vol] 487 U/L High 0-31 [facility] Comment on above: Performed By: #### Karina MARTELL CMP, 0-3 #### [facility] ([id number]) [address] [place] [address] Anion gap [Moles/Vol] 17 mmol/L High 5-[address] [facility] Comment on above: Performed By: #### Karina MARTELL CMP, 0-3 #### [facility] ([id number]) [address] [place] [address] AST [Catalytic activity/Vol] 172 U/L High 0-41 [facility] Comment on above: Performed By: #### Karina MARTELL CMP, 3040-3 #### [facility] ([id number]) [address] [place] [address] Bilirubin [Mass/Vol] 3.8 mg/dL High 0.3-1.2 [facility] Comment on above: Performed By: #### Karina MARTELL CMP, 3040-3 #### [facility] ([id number]) [address], [address] [place] [address] Calcium [Mass/Vol] 9.6 mg/dL Normal 8.5-10.5 [facility] Comment on above: Performed By: #### Karina MARTELL CMP, 3039-3 #### [facility] ([id number]) [address], [address] [place] [address] Chloride [Moles/Vol] 99 mmol/L Normal 98-109 [facility] Comment on above: Performed By: #### Karina MARTELL CMP, 0-3 #### [facility] ([id number]) [address], [address] [place] [address] CO2 [Moles/Vol] 18 mmol/L Low 22-32 [facility] Comment on above: Performed By: #### Karina MARTELL CMP, 0-3 #### [facility] ([id number]) [address] [place] [address] Creatinine [Mass/Vol] 0.80 mg/dL Normal 0.40-1.[address] [facility] Comment on above: Result Comment: METH OD TRACEABLE TO IDMS STANDARD Performed By: #### Karina MARTELL CMP, 0-3 #### [facility] ([id number]) [address], [address] [place] [address] eGFR (CKD-EPI) NON-RACE DEPENDENT >90 Normal >59 [facility] Comment on above: Result Comment: Reported eGFR is based on the CKD-EPI 2020 equation that does not use a race coefficient. Performed By: #### Karina MARTELL CMP, 3040-3 #### [facility] ([id number]) [address] [place] [address] Glucose [Mass/Vol] 70 mg/dL Normal 65-99 [facility] Comment on above: Performed By: #### Karina MARTELL CMP, 3040-3 #### [facility] ([id number]) [address] [place] [address] Potassium [Moles/Vol] 4.1 mmol/L Normal 3.5-5.[address] [facility] Comment on above: Performed By: #### Karina MARTELL CMP, 0-3 #### [facility] ([id number]) [address] [place] [address] Protein [Mass/Vol] 7.8 g/dL Normal 6.0-8.0 [facility] Comment on above: Performed By: #### Karina MARTELL CMP, 0-3 #### [facility] ([id number]) [address] [place] [address] Sodium [Moles/Vol] 134 mmol/L Normal 134-146 [facility] Comment on above: Performed By: #### Karina MARTELL CMP, 3040-3 #### [facility] ([id number]) [address] [place] [address] Urea nitrogen [Mass/Vol] 12 mg/dL Normal 5-23 [facility] Comment on above: Performed By: #### Karina MARTELL CMP, 3040-3 #### [facility] ([id number]) [address] [place], [place] [address] LIPASEon 11-29-2023 Lipase [Catalytic activity/Vol] 30 U/L Normal 11-82 [facility] Comment on above: Performed By: #### Karina MARTELL CMP, 3040-3 #### [facility] ([id number]) [address], [address] [place] [address] Alanine aminotransferase [En zymatic activity/volume] in Serum or PlasmaOrdered By: Mitra Degroot on 02-25-2023 ALT [Catalytic activity/Vol] 12 U/L 7-52 [facility] Albumin [Mass/volume] in Ser um or Plasma by Bromocresol green (BCG) dye binding methoOrdered By: Mitra Degroot on 02-25-2023 Albumin BCG dye [Mass/Vol] 3.4 g/dL 3.5-5.7 [facility] Alkaline phosphatase [Enzyma tic activity/volume] in Serum or PlasmaOrdered By: Mitra Degroot on 02-25-2023 ALP [Catalytic activity/Vol] 107 U/L 34-104 [facility] Aspartate aminotransferase [ Enzymatic activity/volume] in Serum or PlasmaOrdered By: Mitra Degroot 02-25-2023 AST [Catalytic activity/Vol] 11 U/L 13-39 [facility] Basophils Auto (Bld) [#/Vol] Ordered By: Mitra Degroot 02-25-2023 Basophils (Bld) [#/Vol] 0.1 10*3/uL 0.0-0.2 [facility] Basophils/100 WBC Auto (Bld) Ordered By: Mitra Degroot on 02-25-2023 Basophils/100 WBC (Bld) 0.4 % . [facility] Bilirubin.total [Mass/volume ] in Serum or PlasmaOrdered By: Mitra Degroot 02-25-2023 Bilirubin [Mass/Vol] 0.3 mg/dL 0.3-1.0 [facility] Calcium [Mass/volume] in Ser um or PlasmaOrdered By: Mitra Degroot 02-25-2023 Calcium [Mass/Vol] 11.3 mg/dL 8.6-10.3 [facility] Carbon dioxide, total [Moles /volume] in Serum or PlasmaOrdered By: Mitra Degroot 02-25-2023 CO2 [Moles/Vol] 26.0 mmol/L 21.0-31.0 [facility] Chloride [Moles/volume] in S ophelia or PlasmaOrdered By: Mitra Degroot 02-25-2023 Chloride [Moles/Vol] 106 mmol/L 98-107 [facility] Complete Blood Count Auto Di ffon 02-25-2023 Basophils (Bld) [#/Vol] 0.1 10*3/uL Normal 0.0-0.2 [facility] Comment on above: Result Comment: PERF ORMED BY: [place] [address] PATHOLOGIST [employer] FLORY JAIN M.D. Performed By: #### C MP, CBC #### [address] Basophils/100 WBC (Bld) 0.4 % Normal . [facility] Comment on above: Performed By: #### C MP, CBC #### [address] Eosinophils (Bld) [#/Vol] 0.0 10*3/uL Normal 0.0-0.45 [facility] Comment on above: Performed By: #### C MP, CBC #### [address] Eosinophils/100 WBC (Bld) 0.3 % Normal . [facility] Comment on above: Performed By: #### C MP, CBC #### [address] Erythrocyte distribution width (RBC) [Ratio] 14.1 % Normal 11.9-15.3 [facility] Comment on above: Performed By: #### C MP, CBC #### [facility] [address] [place] [address] Hematocrit (Bld) [Volume fraction] 34.4 % Normal 34.0-46.4 [facility] Comment on above: Performed By: #### C MP, CBC #### [place] [id number] [place] Hemoglobin (Bld) [Mass/Vol] 11.5 g/dL Low 11.8-15.4 [facility] Comment on above: Performed By: #### C MP, CBC #### [place] [id number] [place] Lymphocytes (Bld) [#/Vol] 2.3 10*3/uL Normal 1.00-4.8 [facility] Comment on above: Performed By: #### C MP, CBC #### [facility] [address] Lymphocytes/100 WBC (Bld) 14.7 % Normal . [facility] Comment on above: Performed By: #### C MP, CBC #### [facility] [address] MCH (RBC) [Entitic mass] 29.9 pg Normal 24.7-34.3 [facility] Comment on above: Performed By: #### C MP, CBC #### [facility] [address] MCV (RBC) [Entitic vol] 90.1 fL Normal 80-100 [facility] Comment on above: Performed By: #### C MP, CBC #### [facility] [address] Mean Corpuscular HGB Conc 33.2 g/dL Normal 32.0-35.0 [facility] Comment on above: Performed By: #### C MP, CBC #### [facility] [address] [place] [address] [place] Monocytes (Bld) [#/Vol] 1.0 10*3/uL High 0.0-0.8 [facility] Comment on above: Performed By: #### C MP, CBC #### [facility] [address] [place] [address] [place] Monocytes/100 WBC (Bld) 6.6 % Normal . [facility] Comment on above: Performed By: #### C MP, CBC #### [facility] [address] [place] [address] [place] Neutrophils (Bld) [#/Vol] 12.2 10*3/uL High 1.8-7.7 [facility] Comment on above: Performed By: #### C MP, CBC #### [facility] [address] Neutrophils/100 WBC (Bld) 78.0 % Normal . [facility] Comment on above: Performed By: #### C MP, CBC #### [facility] [address] NRBC% 0.0 /100{WBC} Normal 0-0.5 [facility] Comment on above: Performed By: #### C MP, CBC #### [facility] [address] Platelet mean volume (Bld) [Entitic vol] 7.8 fL Normal 6.3-10.7 [facility] Comment on above: Performed By: #### C MP, CBC #### [address] Platelets (Bld) [#/Vol] 348 10*3/uL Normal 150-450 [facility] Comment on above: Performed By: #### C MP, CBC #### [address] RBC (Bld) [#/Vol] 3.82 10*6/uL Normal 3.60-5.00 [facility] Comment on above: Performed By: #### C MP, CBC #### [address] WBC (Bld) [#/Vol] 15.7 10*3/uL High 3.8-11.6 [facility] Comment on above: Performed By: #### C MP, CBC #### [address] Comprehensive Metabolic Pane jose 02-25-2023 Albumin [Mass/Vol] 3.4 g/dL Low 3.5-5.7 [facility] Comment on above: Performed By: #### C MP, CBC #### [address] Albumin/Globulin [Mass ratio] 1.0 {ratio} Normal [facility] Comment on above: Performed By: #### C MP, CBC #### [address] ALP [Catalytic activity/Vol] 107 U/L High 34-104 [facility] Comment on above: Performed By: #### C MP, CBC #### [facility] [address] [place] [address] [place] ALT [Catalytic activity/Vol] 12 U/L Normal 7-52 [facility] Comment on above: Performed By: #### C MP, CBC #### [facility] [address] Anion gap [Moles/Vol] 9.5 mmol/L Normal 6.0-15.0 [facility] Comment on above: Performed By: #### C MP, CBC #### [facility] [address] AST [Catalytic activity/Vol] 11 U/L Low 13-39 [facility] Comment on above: Performed By: #### C MP, CBC #### [facility] [address] Bilirubin [Mass/Vol] 0.3 mg/dL Normal 0.3-1.0 [facility] Comment on above: Performed By: #### C MP, CBC #### [facility] [address] [place] [address] [place] Calcium [Mass/Vol] 11.3 mg/dL High 8.6-10.3 [facility] Comment on above: Performed By: #### C MP, CBC #### [facility] [address] [place] [address] [place] Chloride [Moles/Vol] 106 mmol/L Normal 98-107 [facility] Comment on above: Performed By: #### C MP, CBC #### [facility] [address] [place] [address] [place] CO2 [Moles/Vol] 26.0 mmol/L Normal 21.0-31.0 [facility] Comment on above: Performed By: #### C MP, CBC #### [facility] [address] [place] [address] [place] Creatinine [Mass/Vol] 0.99 mg/dL Normal 0.60-1.20 [facility] Comment on above: Performed By: #### C MP, CBC #### [place] [id number] [place] Creatinine Clr Calc Pharmacy 81.19 [facility] Comment on above: Result Comment: PERF ORMED BY: [place] [address] PATHOLOGIST [employer] FLORY JAIN M.D. Performed By: #### C MP, CBC #### [place] [id number] [place] GFR/1.73 sq M.predicted MDRD (S/P/Bld) [Vol rate/Area] mL/min/{1.73_m2} [facility] Comment on above: Performed By: #### C MP, CBC #### [address] Globulin (S) [Mass/Vol] 3.3 g/dL [facility] Comment on above: Performed By: #### C MP, CBC #### [address] Glucose [Mass/Vol] 73 mg/dL Normal 70-100 [facility] Comment on above: Result Comment: [facility] Glucose Reference Range is dependent on time and content of last meal. Glucose of more than 200 mg/dL in a nonstressed, ambulatory subject supports the diagnosis of Diabetes Mellitus. ADA recommended reference range Performed By: #### C MP, CBC #### [place] [id number] [place] Potassium [Moles/Vol] 4.5 mmol/L Normal 3.5-5.1 [facility] Comment on above: Performed By: #### C MP, CBC #### [place] [id number] [place] Protein [Mass/Vol] 6.7 g/dL Normal 6.4-8.9 [facility] Comment on above: Performed By: #### C MP, CBC #### [place] [id number] [place] Sodium [Moles/Vol] 137 mmol/L Normal 136-145 [facility] Comment on above: Performed By: #### C MP, CBC #### [facility] [address] [place] [address] [place] Urea nitrogen [Mass/Vol] 12 mg/dL Normal 7-25 [facility] Comment on above: Performed By: #### C MP, CBC #### [facility] [address] [place] [address] [place] Creatinine [Mass/volume] in Serum or PlasmaOrdered By: Mitra Degroot on 02-25-2023 Creatinine [Mass/Vol] 0.99 mg/dL 0.60-1.20 [facility] Eosinophils Auto (Bld) [#/Vo l]Ordered By: Mitra Degroot on 02-25-2023 Eosinophils (Bld) [#/Vol] 0.0 10*3/uL 0.0-0.45 [facility] Eosinophils/100 WBC Auto (Bl d)Ordered By: Mitra Degroot on 02-25-2023 Eosinophils/100 WBC (Bld) 0.3 % . [facility] Erythrocyte distribution wid th Auto (RBC) [Ratio]Ordered By: Mitra Degroot on 02-25-2023 Erythrocyte distribution width (RBC) [Ratio] 14.1 % 11.9-15.3 [facility] Globulin Calc (S) [Mass/Vol] Ordered By: Mitra Degroot on 02-25-2023 Globulin (S) [Mass/Vol] 3.3 g/dL [facility] Glucose [Mass/volume] in Ser um or PlasmaOrdered By: Mitra Degroot on 02-25-2023 Glucose [Mass/Vol] 73 mg/dL 70-100 [facility] Comment on above: ADA recommended refe rence rangeRandom Glucose Reference Range is dependent on time and content of last meal. Glucose of more than 200 mg/dL in a nonstressed, ambulatory subject supports the diagnosis of Diabetes Mellitus. Hematocrit Auto (Bld) [Volum e fraction]Ordered By: Mitra Degroot on 02-25-2023 Hematocrit (Bld) [Volume fraction] 34.4 % 34.0-46.4 [facility] Hemoglobin [Mass/volume] in BloodOrdered By: Mitra Degroot on 02-25-2023 Hemoglobin (Bld) [Mass/Vol] 11.5 g/dL 11.8-15.4 [facility] Leukocytes [#/volume] correc rojas for nucleated erythrocytes in Blood by Automated counOrdered By: Mitra Degroot on 02-25-2023 WBC corrected for nucl RBC Auto (Bld) [#/Vol] 15.7 10*3/uL 3.8-11.6 [facility] Lymphocytes Auto (Bld) [#/Vo l]Ordered By: Mitra Degroot on 02-25-2023 Lymphocytes (Bld) [#/Vol] 2.3 10*3/uL 1.00-4.8 [facility] Lymphocytes/100 WBC Auto (Bl d)Ordered By: Mitra Degroot on 02-25-2023 Lymphocytes/100 WBC (Bld) 14.7 % . [facility] MCH Auto (RBC) [Entitic mass ]Ordered By: Mitra Degroot on 02-25-2023 MCH (RBC) [Entitic mass] 29.9 pg 24.7-34.3 [facility] MCHC Auto (RBC) [Mass/Vol]Or dered By: Mitra Degroot on 02-25-2023 MCHC (RBC) [Mass/Vol] 33.2 g/dL 32.0-35.0 [facility] MCV Auto (RBC) [Entitic vol] Ordered By: Mitra Degroot on 02-25-2023 MCV (RBC) [Entitic vol] 90.1 fL 80-100 [facility] Monocytes Auto (Bld) [#/Vol] Ordered By: Mitra Degroot on 02-25-2023 Monocytes (Bld) [#/Vol] 1.0 10*3/uL 0.0-0.8 [facility] Monocytes/100 WBC Auto (Bld) Ordered By: Mitra Degroot on 02-25-2023 Monocytes/100 WBC (Bld) 6.6 % . [facility] Neutrophils Auto (Bld) [#/Vo l]Ordered By: Mitra Degroot on 02-25-2023 Neutrophils (Bld) [#/Vol] 12.2 10*3/uL 1.8-7.7 [facility] Neutrophils/100 WBC Auto (Bl d)Ordered By: Mitra Degroot on 02-25-2023 Neutrophils/100 WBC (Bld) 78.0 % . [facility] No Panel InformationOrdered By: Mitra Degroot on 02-25-2023 Estimated GFR (CKD-EPI) > 60.0 mL/Min [facility] Creatinine Clearance (Chem 81.19 [facility] Nucleated erythrocytes [Pres ence] in Blood by Automated countOrdered By: Mitra Degroot on 02-25-2023 Nucleated RBC Auto Ql (Bld) 0.0 /100{WBC} 0-0.5 [facility] Platelet mean volume Auto (B ld) [Entitic vol]Ordered By: Mitra Degroot on 02-25-2023 Platelet mean volume (Bld) [Entitic vol] 7.8 fL 6.3-10.7 [facility] Platelets Auto (Bld) [#/Vol] Ordered By: Mitra Degroot on 02-25-2023 Platelets (Bld) [#/Vol] 348 10*3/uL 150-450 [facility] Potassium [Moles/volume] in Serum or PlasmaOrdered By: Mitra Degroot on 02-25-2023 Potassium [Moles/Vol] 4.5 mmol/L 3.5-5.1 [facility] Protein [Mass/volume] in Ser um or PlasmaOrdered By: Mitra Degroot on 02-25-2023 Protein [Mass/Vol] 6.7 g/dL 6.4-8.9 [facility] RBC Auto (Bld) [#/Vol]Ordere d By: Mitra Degroot on 02-25-2023 RBC (Bld) [#/Vol] 3.82 10*6/uL 3.60-5.00 [facility] Serum or plasma albumin/glob ulin mass ratioOrdered By: Mitra Degroot on 02-25-2023 Albumin/Globulin [Mass ratio] 1.0 {ratio} [facility] Serum or plasma anion gap de terminationOrdered By: Mitra Degroot on 02-25-2023 Anion gap [Moles/Vol] 9.5 mmol/L 6.0-15.0 [facility] Sodium [Moles/volume] in Ser um or PlasmaOrdered By: Mitra Degroot on 02-25-2023 Sodium [Moles/Vol] 137 mmol/L 136-145 [facility] Urea nitrogen [Mass/volume] in Serum or PlasmaOrdered By: Mitra Degroot on 02-25-2023 Urea nitrogen [Mass/Vol] 12 mg/dL 7-25 [facility] WBC Auto (Bld) [#/Vol]Ordere d By: Mitra Degroot on 02-25-2023 WBC (Bld) [#/Vol] 15.7 10*3/uL 3.8-11.6 [facility] Complete Blood Count Auto Di ffon 02-24-2023 Basophils (Bld) [#/Vol] 0.0 10*3/uL Normal 0.0-0.2 [facility] Comment on above: Result Comment: PERF ORMED BY: [facility] [address] [place] [address] PATHOLOGIST [employer] FLORY JAIN M.D. Performed By: #### R MI W RFX #### [facility] , Basophils/100 WBC (Bld) 0.2 % Normal . [facility] Comment on above: Performed By: #### R MI W RFX #### [facility] , Eosinophils (Bld) [#/Vol] 0.0 10*3/uL Normal 0.0-0.45 [facility] Comment on above: Performed By: #### R MI W RFX #### [facility] , Eosinophils/100 WBC (Bld) 0.0 % Normal . [facility] Comment on above: Performed By: #### R MI W RFX #### [facility] , Erythrocyte distribution width (RBC) [Ratio] 13.8 % Normal 11.9-15.3 [facility] Comment on above: Performed By: #### R MI W RFX #### [facility] , Hematocrit (Bld) [Volume fraction] 28.8 % Low 34.0-46.4 [facility] Comment on above: Performed By: #### R MI W RFX #### [facility] , Hemoglobin (Bld) [Mass/Vol] 9.9 g/dL Low 11.8-15.4 [facility] Comment on above: Performed By: #### R MI W RFX #### [facility] , Lymphocytes (Bld) [#/Vol] 3.1 10*3/uL Normal 1.00-4.8 [facility] Comment on above: Performed By: #### R MI W RFX #### [facility] , Lymphocytes/100 WBC (Bld) 15.8 % Normal . [facility] Comment on above: Performed By: #### R MI W RFX #### [facility] , MCH (RBC) [Entitic mass] 30.5 pg Normal 24.7-34.3 [facility] Comment on above: Performed By: #### R MI W RFX #### [facility] , MCV (RBC) [Entitic vol] 88.7 fL Normal 80-100 [facility] Comment on above: Performed By: #### R MI W RFX #### [facility] , Mean Corpuscular HGB Conc 34.4 g/dL Normal 32.0-35.0 [facility] Comment on above: Performed By: #### R MI W RFX #### [facility] , Monocytes (Bld) [#/Vol] 1.2 10*3/uL High 0.0-0.8 [facility] Comment on above: Performed By: #### R MI W RFX #### [facility] , Monocytes/100 WBC (Bld) 6.3 % Normal . [facility] Comment on above: Performed By: #### R MI W RFX #### [facility] , Neutrophils (Bld) [#/Vol] 15.1 10*3/uL High 1.8-7.7 [facility] Comment on above: Performed By: #### R MI W RFX #### [facility] , Neutrophils/100 WBC (Bld) 77.7 % Normal . [facility] Comment on above: Performed By: #### R MI W RFX #### [facility] , NRBC% 0.0 /100{WBC} Normal 0-0.5 [facility] Comment on above: Performed By: #### R MI W RFX #### [facility] , Platelet mean volume (Bld) [Entitic vol] 8.1 fL Normal 6.3-10.7 [facility] Comment on above: Performed By: #### R MI W RFX #### [facility] , Platelets (Bld) [#/Vol] 286 10*3/uL Normal 150-450 [facility] Comment on above: Performed By: #### R MI W RFX #### [facility] , RBC (Bld) [#/Vol] 3.24 10*6/uL Low 3.60-5.00 [facility] Comment on above: Performed By: #### R MI W RFX #### [facility] , WBC (Bld) [#/Vol] 19.4 10*3/uL High 3.8-11.6 [facility] Comment on above: Performed By: #### R MI W RFX #### [facility] , ABO/RH Typeon 02-23-2023 ABO and Rh group Nom (Bld) Blood group A Rh(D) positive Normal [facility] Comment on above: Result Comment: PERF ORMED BY: [facility] [address] [place] [address] PATHOLOGIST [employer] FLORY JAIN M.D. ABO/Rh Retypeon 02-23-2023 ABO/RH Recheck Result Positive Normal [facility] Comment on above: Result Comment: PERF ORMED BY: [facility] [place] [address] PATHOLOGIST [employer] FLORY JAIN M.D. Amphetamine Screen Ql (U)Ord ered By: DIANA SORENSON on 02-23-2023 Amphetamines Ql (U) Negative Negative [facility] Automated erythrocytes count in urine sediment (number/area)Ordered By: DIANA SORENSON on 02-23-2023 RBC Auto (Urine sed) [#/Area] 3-4 [HPF] 0-4 [facility] Automated leukocytes count i n urine sediment (number/area)Ordered By: DIANA SORENSON on 02-23-2023 WBC Auto (Urine sed) [#/Area] 10-19 [HPF] 0-4 [facility] Automated urine hyaline cast s count (number/volume)Ordered By: DIANA SORENSON on 02-23-2023 Hyaline casts Auto (U) [#/Vol] None seen [LPF] 0-1 [facility] Barbiturates [Presence] in U rine by Screen methodOrdered By: DIANA SORENSON on 02-23-2023 Barbiturates Screen Ql (U) Negative Negative [facility] Benzodiazepines Screen Ql (U )Ordered By: DIANA SORENSON on 02-23-2023 Benzodiazepines Ql (U) Negative Negative [facility] Benzoylecgonine [Presence] i n Urine by Screen methodOrdered By: DIANA SORENSON on 02-23-2023 Benzoylecgonine Screen Ql (U) Negative Negative [facility] Bilirubin Test strip Ql (U)O rdered By: DIANA SORENSON on 02-23-2023 Bilirubin Ql (U) Negative Negative [facility] Casts typing in urine sedime nt by light microscopyOrdered By: DIANA SORENSON on 02-23-2023 Casts LM Nom (Urine sed) None seen [LPF] None Seen [facility] Color Auto (U)Ordered By: GILMAR SORENSON on 02-23-2023 Color (U) Yellow Yellow [facility] Complete Blood Count Auto Di ffon 02-23-2023 Basophils (Bld) [#/Vol] 0.0 10*3/uL Normal 0.0-0.2 [facility] Comment on above: Result Comment: PERF ORMED BY: [place] [address] PATHOLOGIST [employer] FLORY JAIN M.D. Performed By: #### C BC #### [address] Basophils/100 WBC (Bld) 0.4 % Normal . [facility] Comment on above: Performed By: #### C BC #### [address] Eosinophils (Bld) [#/Vol] 0.0 10*3/uL Normal 0.0-0.45 [facility] Comment on above: Performed By: #### C BC #### [address] Eosinophils/100 WBC (Bld) 0.4 % Normal . [facility] Comment on above: Performed By: #### C BC #### [address] Erythrocyte distribution width (RBC) [Ratio] 14.1 % Normal 11.9-15.3 [facility] Comment on above: Performed By: #### C BC #### [address] Hematocrit (Bld) [Volume fraction] 34.7 % Normal 34.0-46.4 [facility] Comment on above: Performed By: #### C BC #### [place] [id number] [place] Hemoglobin (Bld) [Mass/Vol] 12.0 g/dL Normal 11.8-15.4 [facility] Comment on above: Performed By: #### C BC #### [place] [id number] [place] Lymphocytes (Bld) [#/Vol] 2.9 10*3/uL Normal 1.00-4.8 [facility] Comment on above: Performed By: #### C BC #### [address] Lymphocytes/100 WBC (Bld) 23.1 % Normal . [facility] Comment on above: Performed By: #### C BC #### [address] MCH (RBC) [Entitic mass] 30.2 pg Normal 24.7-34.3 [facility] Comment on above: Performed By: #### C BC #### [address] MCV (RBC) [Entitic vol] 87.6 fL Normal 80-100 [facility] Comment on above: Performed By: #### C BC #### [address] Mean Corpuscular HGB Conc 34.5 g/dL Normal 32.0-35.0 [facility] Comment on above: Performed By: #### C BC #### [address] Monocytes (Bld) [#/Vol] 0.7 10*3/uL Normal 0.0-0.8 [facility] Comment on above: Performed By: #### C BC #### [address] Monocytes/100 WBC (Bld) 5.5 % Normal . [facility] Comment on above: Performed By: #### C BC #### [address] Neutrophils (Bld) [#/Vol] 9.0 10*3/uL High 1.8-7.7 [facility] Comment on above: Performed By: #### C BC #### [address] Neutrophils/100 WBC (Bld) 70.6 % Normal . [facility] Comment on above: Performed By: #### C BC #### [facility] [address] NRBC% 0.0 /100{WBC} Normal 0-0.5 [facility] Comment on above: Performed By: #### C BC #### [address] Platelet mean volume (Bld) [Entitic vol] 8.1 fL Normal 6.3-10.7 [facility] Comment on above: Performed By: #### C BC #### [address] Platelets (Bld) [#/Vol] 331 10*3/uL Normal 150-450 [facility] Comment on above: Performed By: #### C BC #### [address] RBC (Bld) [#/Vol] 3.96 10*6/uL Normal 3.60-5.00 [facility] Comment on above: Performed By: #### C BC #### [address] WBC (Bld) [#/Vol] 12.7 10*3/uL High 3.8-11.6 [facility] Comment on above: Performed By: #### C BC #### [address] Cord Blood Gason 02-23-2023 Cord Arterial Blood Total CO2 25.1 mmol/L Normal 23.0-27.0 [facility] Comment on above: Performed By: #### C ORDBG #### Point of Care testing , Cord Blood Base Excess -0.3 mmol/L Normal -3.0-3.0 [facility] Comment on above: Performed By: #### C ORDBG #### Point of Care testing , Cord Blood Capillary PO2 20.1 mm[Hg] Off scale low 90.0-100.0 [facility] Comment on above: Performed By: #### C ORDBG #### Point of Care testing , Cord Blood Frac Inspired O2 21 % Normal [facility] Comment on above: Performed By: #### C ORDBG #### Point of Care testing , Cord Blood HCO3 23.9 mmol/L Normal 23.0-29.0 [facility] Comment on above: Performed By: #### C ORDBG #### Point of Care testing , Cord Blood Oxygen Content 5.1 mmol/L Low 6.6-9.7 [facility] Comment on above: Performed By: #### C ORDBG #### Point of Care testing , Cord Blood Oxygen Sat 54.3 % Low 95.0-99.0 [facility] Comment on above: Performed By: #### C ORDBG #### Point of Care testing , Cord Blood PCO2 38.2 mm[Hg] Normal 35.0-45.0 [facility] Comment on above: Performed By: #### C ORDBG #### Point of Care testing , Cord Blood pH 7.42 Normal 7.35-7.45 [facility] Comment on above: Performed By: #### C ORDBG #### Point of Care testing , Respiratory Critical Normal [facility] Comment on above: Result Comment: Crit ical Value called on: 02/23/2023 at 14:53 PERFORMED BY: [place] [address] PATHOLOGIST [employer] FLORY JAIN M.D. Performed By: #### C ORDBG #### Point of Care testing , VBG Draw Site Umbilical Cord Normal [facility] Comment on above: Performed By: #### C ORDBG #### Point of Care testing , Dipstick and Microscopicon 0 02-23-2023 Appearance (U) Cloudy Critically abnormal Clear [facility] Comment on above: Order Comment: Name Collection Type:: Clean-Voided Midstream Performed By: #### A DALEUATAO GOLDBERGU OBUDS #### [place] [id number] [place] Bacteria,Urine 2+ High None Seen [facility] Comment on above: Order Comment: Name Collection Type:: Clean-Voided Midstream Performed By: #### A DDONUAPLUS, CUU, OBUDS #### [facility] [address] [place] [address] [place] Bilirubin,Urine Negative Normal Negative [facility] Comment on above: Order Comment: Name Collection Type:: Clean-Voided Midstream Performed By: #### A DDONUAPLUS, CUU, OBUDS #### [facility] [address] [place] [address] [place] Color (U) Yellow Normal Yellow [facility] Comment on above: Order Comment: Name Collection Type:: Clean-Voided Midstream Performed By: #### A DDONUAPLUS, CUU, OBUDS #### [facility] [address] [place] [address] Glucose Ql (U) Normal Normal Normal [facility] Comment on above: Order Comment: Name Collection Type:: Clean-Voided Midstream Performed By: #### A DDONUAPLUS, CUU, OBUDS #### [facility] [address] [place] [address] [place] Hyaline Casts,Urine None Seen Normal 0-1 [facility] Comment on above: Order Comment: Name Collection Type:: Clean-Voided Midstream Performed By: #### A DDONUAPLUS, CUU, OBUDS #### [facility] [address] [place] [address] [place] Ketones Ql (U) Trace High Negative [facility] Comment on above: Order Comment: Name Collection Type:: Clean-Voided Midstream Performed By: #### A DDONUAPLUS, CUU, OBUDS #### [facility] [address] [place] [address] [place] Leukocyte esterase Test strip Ql (U) 2+ High Negative [facility] Comment on above: Order Comment: Name Collection Type:: Clean-Voided Midstream Performed By: #### A DDONUAPLUS, CUU, OBUDS #### [facility] [address] [place] [address] [place] Nitrite,Urine Negative Normal Negative [facility] Comment on above: Order Comment: Name Collection Type:: Clean-Voided Midstream Performed By: #### A DDONUAPLUS, CUU, OBUDS #### [place] [id number] [place] Occult Blood,Urine Negative Normal Negative [facility] Comment on above: Order Comment: Name Collection Type:: Clean-Voided Midstream Result Comment: PERF ORMED BY: [place] [address] PATHOLOGIST [employer] FLORY JAIN M.D. Performed By: #### A DDONUAPLUS, CUU, OBUDS #### [address] Other Casts,Urine None Seen Normal None Seen [facility] Comment on above: Order Comment: Name Collection Type:: Clean-Voided Midstream Result Comment: PERF ORMED BY: [place] [address] PATHOLOGIST [employer] FLORY JAIN M.D. Performed By: #### A DDONUAPLUS, CUU, OBUDS #### [address] pH (U) 7.0 [pH] Normal 5.0-9.0 [facility] Comment on above: Order Comment: Name Collection Type:: Clean-Voided Midstream Performed By: #### A DDONUAPLUS, CUU, OBUDS #### [place] [id number] [place] Protein (U) [Mass/Vol] 30 mg/dL High Negative [facility] Comment on above: Order Comment: Name Collection Type:: Clean-Voided Midstream Performed By: #### A DDONUAPLUS, CUU, OBUDS #### [place] [id number] [place] RBC,Urine 3-4 Normal 0-4 [facility] Comment on above: Order Comment: Name Collection Type:: Clean-Voided Midstream Performed By: #### A DDONUAPLUS, CUU, OBUDS #### [address] [place] [address] [place] Specificy [place],Urine 1.016 Normal 1.001-1.030 [facility] Comment on above: Order Comment: Name Collection Type:: Clean-Voided Midstream Performed By: #### A DDONUAPLUS, CUU, OBUDS #### [facility] [address] [place] [address] Squamous Epithelial Cell,Urine 10-19 High 0-2 [facility] Comment on above: Order Comment: Name Collection Type:: Clean-Voided Midstream Performed By: #### A DDONUAPLUS, CUU, OBUDS #### [facility] [address] [place] [address] Urobilinogen,Urine Normal Normal Normal [facility] Comment on above: Order Comment: Name Collection Type:: Clean-Voided Midstream Performed By: #### A DDONUAPLUS, CUU, OBUDS #### [facility] [address] [place] [address] WBC,Urine 10-19 High 0-4 [facility] Comment on above: Order Comment: Name Collection Type:: Clean-Voided Midstream Performed By: #### A DDONUAPLUS, CUU, OBUDS #### [facility] [address] [place] [address] Ketones Auto test strip (U) [Mass/Vol]Ordered By: DIANA SORENSON on 02-23-2023 Ketones (U) [Mass/Vol] Trace Negative [facility] Nitrite Test strip Ql (U)Ord ered By: DIANA SORENSON on 02-23-2023 Nitrite Ql (U) Negative Negative [facility] No Panel InformationOrdered By: DIANA SORENSON on 02-23-2023 Blood Gas Critical Value See comment [facility] Comment on above: Critical Value louis d on: 02/23/2023 at 14:53 Blood Gas Sample Site Umbilical cord [facility] Cord Arterial Bld Oxygen Saturation 54.3 % 95.0-99.0 [facility] Cord Arterial Blood Base Excess -0.3 mmol/L -3.0-3.0 [facility] Cord Arterial Blood O2 Content 5.1 mmol/L 6.6-9.7 [facility] Cord Blood HCO3 23.9 mmol/L 23.0-29.0 [facility] Cord Blood PCO2 38.2 mm[Hg] 35.0-45.0 [facility] Cord Blood pH 7.42 7.35-7.45 [facility] Cord Blood PO2 20.1 mm[Hg] 90.0-100.0 [facility] Cord Blood Total CO2 25.1 mmol/L 23.0-27.0 [facility] FiO2 21 % [facility] OB Urine Drug Screen (NO THC )on 02-23-2023 Amphetamine Screen,Urine Negative Normal Negative [facility] Comment on above: Performed By: #### A DDONUATAO GOLDBERGU, OBUDS #### [facility] [address] [place] [address] [place] Barbiturate Screen,Urine Negative Normal Negative [facility] Comment on above: Performed By: #### A DDONUAPLUSTAOU, OBUDS #### [facility] [address] [place] [address] [place] Benzodiazepines Screen,Urine Negative Normal Negative [facility] Comment on above: Performed By: #### A DDONUAPLUSTAOU, OBUDS #### [facility] [address] [place] [address] [place] Cocaine Screen,Urine Negative Normal Negative [facility] Comment on above: Performed By: #### A DDONUAPLUSTAOU, OBUDS #### [facility] [address] [place] [address] [place] Opiate Screen,Urine Negative Normal Negative [facility] Comment on above: Performed By: #### A DDONUAPLUSTAOU, OBUDS #### [facility] [address] [place] [address] [place] Phencyclidine Screen, Urine Negative Normal Negative [facility] Comment on above: Result Comment: Thes e are unconfirmed results and should not be used for legal purposes. Drug Cut-Off Concentration: AMPH 1000 ng/mL KIMMY 200 ng/mL DILMA 200 ng/mL COCM 300 ng/mL OP 300 ng/mL PCP 25 ng/mL PERFORMED BY: [place] [address] PATHOLOGIST [employer] FLORY JAIN M.D. Performed By: #### A FEMI ONEAL OBUDS #### [address] Opiates [Presence] in Urine by Screen methodOrdered By: DIANA SORENSON on 02-23-2023 Opiates Screen Ql (U) Negative Negative [facility] Phencyclidine Screen Ql (U)O rdered By: DIANA SORENSON on 02-23-2023 Phencyclidine Ql (U) Negative Negative [facility] Comment on above: These are unconfirme d results and should not be used for legal purposes. Drug Cut-Off Concentration: AMPH 1000 ng/mL KIMMY 200 ng/mL DILMA 200 ng/mL COCM 300 ng/mL OP 300 ng/mL PCP 25 ng/mL Protein Auto test strip (U) [Mass/Vol]Ordered By: DIANA SROENSON on 02-23-2023 Protein (U) [Mass/Vol] 30 mg/dL Negative [facility] RPR w/rfx to Quant TP Abson 02-23-2023 RPR, Rfx Quant RPR Non-Reactive Normal Non Reactive [facility] Comment on above: Result Comment: Perf ormed at: - [facility] [address] [id number] [employer]ic: Rashaad Trevino PhD, Phone: [phone] PERFORMED BY: [address] [address] PATHOLOGIST [employer] FLORY JAIN M.D. Performed By: #### R MI W RFX #### [facility] , Reagin Ab [Presence] in Seru m by RPROrdered By: DIANA SORENSON on 02-23-2023 Reagin Ab RPR Ql (S) Non-Reactive Non Reactive [facility] Comment on above: Performed at: CB - [facility] [id number] [place], [place] [id number] Director: Rashaad Trevino PhD, Phone: [phone] Specific gravity Auto test s trip (U) [Rel density]Ordered By: DIANA SORENSON on 02-23-2023 Specific gravity (U) [Rel density] 1.016 1.001-1.030 [facility] Squamous epithelial cells de tection in urine sediment by light microscopyOrdered By: DIANA SORENSON on 02-23-2023 Epithelial cells.squamous LM Ql (Urine sed) 10-19 [HPF] 0-2 [facility] Urine Cultureon 02-23-2023 Bacteria identified Cx Nom (U) <9,000 colonies/ml mixed bacterial skin contaminants 2 Days PERFORMED BY: [place] [address] PATHOLOGIST [employer] FLORY JAIN M.D. [facility] Comment on above: Performed By: #### A FEMI ONEAL OBJONASS #### [address] Urine bacteria detection by automated methodOrdered By: DIANA SORENSON on 02-23-2023 Bacteria Auto Ql (U) 2+ None Seen [facility] Urine clarity by refractomet ry automatedOrdered By: DIANA SORENSON on 02-23-2023 Clarity Refractometry automated (U) Cloudy Clear [facility] Urine culture routineOrdered By: DIANA SORENSON on 02-23-2023 Bacteria identified Cx Nom (U) 2 Days [facility] Urine glucose measurement by automated test strip (mass/volume)Ordered By: DIANA SORENSON on 02-23-2023 Glucose Auto test strip (U) [Mass/Vol] Normal mg/dL Normal [facility] Urine hemoglobin detection b y automated test stripOrdered By: DIANA SORENSON on 02-23-2023 Hemoglobin Auto test strip Ql (U) Negative Negative [facility] Urine leukocyte esterase det ection by automated test stripOrdered By: DIANA SORENSON on 02-23-2023 Leukocyte esterase Auto test strip Ql (U) 2+ Negative [facility] Urobilinogen Auto test strip (U) [Mass/Vol]Ordered By: DIANA SORENSON on 02-23-2023 Urobilinogen (U) [Mass/Vol] Normal mg/dL Normal [facility] pH Auto test strip (U)Ordere d By: DIANA SORENSON on 02-23-2023 pH (U) 7.0 [pH] 5.0-9.0 [facility] Bacterial susceptibility wooten el EZEQUIEL (Isol)on 01-31-2023 Microorganism identified Cx Nom (Unsp spec) [id number] Abnormal [facility] Comment on above: Order Comment: Speci men Type: MICROBIAL ISOLATE Ordering Facility: [facility] Address: [address] [place] [address] Result Comment: Stre ptococcus agalactiae (group b streptococcus) Identification performed by client. Performed By: #### Hannah CRANE, [id number] #### [facility] CLIA [id number] [address] [place] [address] [place] MINIMUM INHIBITORY CONCENTRA TION (VIZION)on 01-31-2023 cefTRIAXone [Susc] 0.25 Susceptible Susceptib le <=0.5 , Nonsusceptible >.5 [facility] Comment on above: Order Comment: Order ing Facility: [facility] Address: [address] [place] [address] Performed By: #### Hannah CRANE, [id number] #### [facility] CLIA [id number] [address] [place] [address] [place] Clindamycin [Susc] <=0.12 Susceptible Susceptib le <=0.25 , Intermediate >.25 , Resistant >.5 [facility] Comment on above: Order Comment: Order ing Facility: [facility] Address: [address] [place] [address] Performed By: #### Hannah CRANE, [id number] #### [facility] CLIA [id number] [address] [place] [address] [place] Erythromycin [Susc] <=0.25 Susceptible Suscepti ble <=0.25 , Intermediate >.25 , Resistant >=1 [facility] Comment on above: Order Comment: Order ing Facility: [facility] Address: [address] [place], [place] [id number] Performed By: #### V ROSA MARIA, [id number] #### [facility] CLIA [id number] [address] [place] [address] [place] Penicillin [Susc] 0.06 Susceptible Susceptibl e <=0.125 , Nonsusceptible >.125 [facility] Comment on above: Order Comment: Order ing Facility: [facility] Address: [address] [place] [address] Performed By: #### V ROSA MARIA, [id number] #### [facility] CLIA [id number] [address] [place] [address] [place] Vancomycin [Susc] <=0.50 Susceptible Susceptibl e <=1 , Nonsusceptible >1 [facility] Comment on above: Order Comment: Order ing Facility: [facility] Address: [address] [place] [address] Performed By: #### V ROSA MARIA, [id number] #### [facility] CLIA [id number] [address] [place] [address] [place] No Panel InformationOrdered By: DIANA SORENSON on 01-31-2023 Group B Streptococcus Culture Strep. agalactiae Grp B [facility] Strep B Culture (PCN Allergi c)on 01-31-2023 Strep B Culture (PCN Allergic) ORGANISM: Strep. agalactiae Grp B (O:B) Comments Sent to [facility] for Sensitivity Testing Please see scanned report located in the Laboratory/Scanned Reports section of the EMR. PERFORMED BY: [address] [place] [address] PATHOLOGIST [employer]OX [employer] LOAD[employer] FLORY JAIN M.D. [facility] Comment on above: Performed By: #### R MI W RFX #### [facility] , [place] PREG ANATOMY SINGLEon US PREG ANATOMY SINGLE EXAMINATION: US PREG ANATOMY SINGLE HISTORY: screening COMPARISON: No relevant [...] YOMAIRA SOSA Date: 2022-10-19 15:24 Normal [facility] AFP MATERNAL FOR SPINA BIFID Aon 10-07-2022 AFP MoM 1.00 Normal [facility] Comment on above: Performed By: #### A FPMAT #### [facility] [address] [place] [address] Dr. Calin Marshall AFP Value 45.3 ng/mL Normal [facility] Comment on above: Performed By: #### A FPMAT #### [facility] [address] [address] [address] Calin Marshall AFP, Serum for Spina Bifida Report Normal [facility] Comment on above: Performed By: #### A FPMAT #### [facility] [address] [address] [address] Calin Marshall Comment Comment Normal [facility] Comment on above: Result Comment: Les Miller, Ph.D., [facility] Director . References: Available Upon Request. . Multiples Of Median Cutoffs For AFP Elevations Perry 2.5 Black 2.8 IDD 2.0 Twins 4.5 Abbreviation Definitions IDD - Insulin Dep Diabetes OSBR - Open Spina Bifida Risk . For further inquiries contact [facility] at [phone]. . This test was developed and its performance characteristics determined by [facility]. It has not been cleared or approved by the Food and Drug Administration. Performed By: #### A FPMAT #### [facility] [address] [address] [address] Calin Marshall Gest Age Collection Date 18.9 weeks Normal [facility] Comment on above: Performed By: #### A FPMAT #### [facility] [address] [address] [address] Calin Marshall Gestat, Age Based on Ultrasound Normal [facility] Comment on above: Result Comment: 8.6 on 07/25/2022 Recalculations are not recommended when gestational dating by LMP and ultrasound are within 10 days. Performed By: #### A FPMAT #### [facility] [address] [address] [address] Calin Marshall Insulin Dep Diabetes No Normal [facility] Comment on above: Performed By: #### A FPMAT #### [facility] [address] [address] [address] Calin Marshall Interpretation Comment Normal [facility] Comment on above: Result Comment: Inte rpretation: [...] Customer Services to discuss available options. The [employer] recommends amniocentesis be offered to women age 35 and older. Performed By: #### A FPMAT #### [facility] [address] [place] [address] Dr. Calin Marshall [age] Normal [facility] Comment on above: Performed By: #### A FPMAT #### [facility] [address] [place] [address] Dr. Calin Marshall Multiple Gestation No Normal [facility] Comment on above: Performed By: #### A FPMAT #### [facility] [address] [place] [address] Dr. Calin Marshall [place] [address] Normal [facility] Comment on above: Performed By: #### A FPMAT #### [facility] [address] [place] [address] Dr. Calin Marshall PDF . [facility] Comment on above: Performed By: #### A FPMAT #### [facility] [address] [place] [address] Dr. Calin Marshall Race [facility] Comment on above: Performed By: #### A FPMAT #### [facility] [address] [place] [address] Dr. Calin Marshall Test Results: Negative [facility] Comment on above: Performed By: #### A FPMAT #### [facility] [address] [place] [address] Dr. Calin Marshall PAP ACOG PANEL 2: 21 to 29on 09-12-2022 . . [facility] Comment on above: Performed By: #### R UBIGG #### [facility] [address] [place] [address] Dr. Calin Marshall Age Gdln ACOG Testing 19- [facility] Comment on above: Performed By: #### R UBIGG #### [facility] [address] [address] [address] Calin Marshall DIAGNOSIS: Comment Normal [facility] Comment on above: Result Comment: NEGA TIVE FOR INTRAEPITHELIAL LESION OR MALIGNANCY. Performed By: #### R UBIGG #### [facility] [address] [place] [address] Dr. Calin Marshall Methodology: Comment Normal [facility] Comment on above: Result Comment: This liquid based ThinPrep(R) pap test was screened with the use of an image guided system. Performed By: #### R UBIGG #### [facility] [address] [address] [address] Calin Marshall Note: Comment Normal [facility] Comment on above: Result Comment: The Pap smear is a screening test designed to aid in the detection of premalignant and malignant conditions of the uterine cervix. It is not a diagnostic procedure and should not be used as the sole means of detecting cervical cancer. Both false-positive and false-negative reports do occur. . Performed By: #### R UBIGG #### [facility] [address] [place] [address] Dr. Calin Marshall Performed by: Comment Normal [facility] Comment on above: Result Comment: Essence Salazar [employer] Attendant (ASCP) Performed By: #### R UBIGG #### [facility] [address] [place] [address] Dr. Calin Marshall Reflex Criteria: Comment Normal [facility] Comment on above: Result Comment: The HPV DNA reflex criteria were not met with this specimen result therefore, no HPV testing was performed. . Performed By: #### R UBIGG #### [facility] [address] [place] [address] Dr. Calin Marshall Specimen adequacy: Comment Normal [facility] Comment on above: Result Comment: Sati sfactory for evaluation. No endocervical component is identified. Performed By: #### R UBIGG #### [facility] [address] [place] [address] Dr. Calin Marshall CHLAMYDIA/GONOCOCCUS RAUL (SW AB/URINE/PAPon 09-08-2022 Chlamydia trachomatis, RAUL Negative Normal Negative [facility] Comment on above: Performed By: #### C T/NGNA #### [facility] [address] [place] [address] Dr. Calin Marshall Neisseria gonorrhoeae, RAUL Negative Normal Negative [facility] Comment on above: Performed By: #### C T/NGNA #### [facility] [address] [place] [address] Dr. Calin Marshall HEP B SURFACE ANTIGEN SCREEN on 08-11-2022 HBsAg Screen Negative Normal Negative [facility] Comment on above: Performed By: #### C MP, LIPA #### [facility] [address] [place] [address] Dr. Calin Marshall HEPATITIS C VIRUS AB W/ REFL EX QUANTon 08-11-2022 HCV AB <0.1 Normal 0.0-0.9 [facility] Comment on above: Performed By: #### R UBIGG #### [facility] [address] [place] [address] Dr. Calin Marshall Interpretation: Comment Normal [facility] Comment on above: Result Comment: Nega tive Not infected with HCV, unless recent infection is suspected or other evidence exists to indicate HCV infection. Performed By: #### R UBIGG #### [facility] [address] [place] [address] Dr. Calin Marshall HIV 1 AND 2 WITH REFLEXon HIV Screen 4th Generation wRfx Non-Reactive Normal Non Reactive [facility] Comment on above: Result Comment: HIV Negative HIV-1/HIV-2 antibodies and HIV-1 p24 antigen were NOT detected. There is no laboratory evidence of HIV infection. Performed By: #### H IV12 #### [facility] [address] [place] [address] Dr. Calin Marshall RPR QUANTon 08-11-2022 Rapid Plasma Reagin, Quant Non-Reactive Normal NonRea<1:1 [facility] Comment on above: Result Comment: Plea se Note: This test does not meet current guidelines for screening and diagnosis of syphilis. This test is intended for following treatment response in patients being treated for syphilis infection. To screen for syphilis infection, a reflex cascade that includes both RPR and a treponema-specific assay should be utilized, such as Treponema pallidum (Syphilis) Screening [place] (628603) or Rapid Plasma Reagin (RPR) Test With Reflex to Quantitative RPR and Confirmatory Treponema pallidum Antibodies (602064). Performed By: #### R PRQ #### [facility] [address] [place] [address] Dr. Calin Marshall RUBELLA AB IGGon 08-11-2022 Rubella Antibodies, IgG 12.10 index Normal Immune >0.99 [facility] Comment on above: Result Comment: Non- immune <0.90 Equivocal 0.90 - 0.99 Immune >0.99 Performed By: #### R UBIGG #### [facility] [address] [place] [address] Dr. Calin Marshall CBC AUTO DIFFon 08-10-2022 BASO # 0.0 103/ul Normal 0.0-0.1 [facility] Comment on above: Performed By: #### R UBIGG #### [facility] [address] [place] [address] Dr. Calin Marshall Basophils/100 WBC (Bld) 0.4 % Normal 0.2-2.0 [facility] Comment on above: Performed By: #### R UBIGG #### [facility] [address] [place] [address] Dr. Calin Marshall EO # 0.1 103/ul Normal 0.0-0.7 [facility] Comment on above: Performed By: #### R UBIGG #### [facility] [address] [place] [address] Dr. Calin Marshall Eosinophils/100 WBC (Bld) 0.7 % Critically low 0.9-7.0 [facility] Comment on above: Performed By: #### R UBIGG #### [facility] [address] [place] [address] Dr. Calin Marshall Erythrocyte distribution width (RBC) [Ratio] 12.6 % Normal 11.0-15.0 [facility] Comment on above: Performed By: #### R UBIGG #### [facility] [address] [address] [address] Calin Marshall Hematocrit (Bld) [Volume fraction] 37.6 % Normal 36.0-48.0 [facility] Comment on above: Performed By: #### R UBIGG #### [facility] [address] [address] [address] Calin Marshall Hemoglobin (Bld) [Mass/Vol] 12.5 g/dL Normal 12.0-16.0 [facility] Comment on above: Performed By: #### R UBIGG #### [facility] [address] [place] [address] Dr. Calin Marshall IG # 0.03 10e3/ul Normal 0.00-0.03 [facility] Comment on above: Performed By: #### R UBIGG #### [facility] [address] [place] [address] Dr. Calin Marshall IG % 0.3 % Normal 0.0-0.5 [facility] Comment on above: Performed By: #### R UBIGG #### [facility] [address] [address] [address] Calin Marshall LYMPH # 2.5 103/ul Normal 1.2-3.8 [facility] Comment on above: Performed By: #### R UBIGG #### [facility] [address] [place] [address] Dr. Calin Marshall Lymphocytes/100 WBC (Bld) 22.3 % Normal 20.5-60.0 [facility] Comment on above: Performed By: #### R UBIGG #### [facility] [address] [place] [address] Dr. Calin Marshall MANUAL DIFF REQ NO Normal [facility] Comment on above: Performed By: #### R UBIGG #### [facility] [address] [place] [address] Dr. Calin Marshall MCH (RBC) [Entitic mass] 29.8 pg Normal 26.7-34.0 [facility] Comment on above: Performed By: #### R UBIGG #### [facility] [address] [address] [address] Calin Marshall MCHC (RBC) [Mass/Vol] 33.2 g/dL Normal 29.9-35.2 [facility] Comment on above: Performed By: #### R UBIGG #### [facility] [address] [address] [address] Calin Marshall MCV (RBC) [Entitic vol] 89.5 fL Normal 81.0-99.0 [facility] Comment on above: Performed By: #### R UBIGG #### [facility] [address] [address] [address] Calin Marshall MONO # 0.5 103/ul Normal 0.3-0.8 [facility] Comment on above: Performed By: #### R UBIGG #### [facility] [address] [address] [address] Calin Marshall Monocytes/100 WBC (Bld) 4.3 % Normal 1.7-12.0 [facility] Comment on above: Performed By: #### R UBIGG #### [facility] [address] [address] [address] Calin Marshall NEUT # 8.0 103/ul Critically high 1.4-6.5 [facility] Comment on above: Performed By: #### R UBIGG #### [facility] [address] [address] [address] Calin Marshall Neutrophils/100 WBC (Bld) 72.0 % Normal 43.0-75.0 [facility] Comment on above: Performed By: #### R UBIGG #### [facility] [address] [address] [address] Calin Marshall Platelet mean volume (Bld) [Entitic vol] 10.2 fL Normal 9.5-13.5 [facility] Comment on above: Performed By: #### R UBIGG #### [facility] [address] [address] [address] Calin Marshall PLT 362 103/ul Normal 150-450 [facility] Comment on above: Performed By: #### R UBIGG #### [facility] [address] [address] [address] Calin Marshall RBC 4.20 106/ul Normal 4.20-5.40 [facility] Comment on above: Performed By: #### R UBIGG #### [facility] [address] [place] [address] Dr. Calin Marshall WBC 11.0 103/ul Normal 4.0-11.0 [facility] Comment on above: Performed By: #### R UBIGG #### [facility] [address] [place] [address] Dr. Calin Marshall CULTURE URINEon 08-10-2022 CULTURE URINE Culture Observations : LIGHT GROWTH OF MIXED GENITAL MARIO. NO POTENTIAL PATHOGENS SEEN. Normal [facility] Comment on above: Performed By: #### R UBIGG #### [facility] [address] [place] [address] Dr. Calin Marshall DRUG SCREEN RAPID (URINE)on 08-10-2022 AMP Negative Normal NEGATIVE [facility] Comment on above: Performed By: #### D RUGRPD #### [facility] [address] [place] [address] Dr. Calin Marshall BAR Negative Normal NEGATIVE [facility] Comment on above: Performed By: #### D RUGRPD #### [facility] [address] [place] [address] Dr. Calin Marshall BUP Negative Normal NEGATIVE [facility] Comment on above: Performed By: #### D RUGRPD #### [facility] [address] [place] [address] Dr. Calin Marshall BZO Negative Normal NEGATIVE [facility] Comment on above: Performed By: #### D RUGRPD #### [facility] [address] [place] [address] Dr. Calin Marshall ROSARIO Negative Normal NEGATIVE [facility] Comment on above: Performed By: #### D RUGRPD #### [facility] [address] [place] [address] Dr. Calin Marshall CUT-OFFS SEE BELOW Normal [facility] Comment on above: Result Comment: AMP [...] ng/mL Performed By: #### D RUGRPD #### [facility] [address] [place] [address] Dr. Calin Marshall DRUG CUT HEADER DRUG CLASS TEST SYSTEM CUT-OFF CONCENTRATIONS ARE FOLLOWS: Normal [facility] Comment on above: Performed By: #### D RUGRPD #### [facility] [address] [place] [address] Dr. Calin Marshall mAMP Negative Normal NEGATIVE [facility] Comment on above: Performed By: #### D RUGRPD #### [facility] [address] [place] [address] Dr. Calin Marshall MTD Negative Normal NEGATIVE [facility] Comment on above: Performed By: #### D RUGRPD #### [facility] [address] [place] [address] Dr. Calin Marshall OPI Negative Normal NEGATIVE [facility] Comment on above: Performed By: #### D RUGRPD #### [facility] [address] [place] [address] Dr. Calin Marshall OXY Negative Normal NEGATIVE [facility] Comment on above: Performed By: #### D RUGRPD #### [facility] [address] [place] [address] Dr. Calin Marshall PCP Negative Normal NEGATIVE [facility] Comment on above: Performed By: #### D RUGRPD #### [facility] [address] [place] [address] Dr. Calin Marshall PPX Negative Normal NEGATIVE [facility] Comment on above: Performed By: #### D RUGRPD #### [facility] [address] [place] [address] Dr. Calin Marshall TCA Positive Abnormal NEGATIVE [facility] Comment on above: Performed By: #### D RUGRPD #### [facility] [address] [place] [address] Dr. Calin Marshall THC Positive Abnormal NEGATIVE [facility] Comment on above: Performed By: #### D RUGRPD #### [facility] [address] [place] [address] Dr. Calin Marshall GLYCOHEMOGLOBIN A1Con 2022 ADA RECOMMENDATION SEE BELOW Normal [facility] Comment on above: Result Comment: ADA RECOMMENDED LIMIT 4.0 - 6.0 ADA THERAPEUTIC TARGET < 7.0 ACTION SUGGESTED > 7.0 Performed By: #### C MP, LIPA #### [facility] [address] [place] [address] Dr. Calin Marshall Glucose [Mass/Vol] 97 mg/dL Normal [facility] Comment on above: Performed By: #### C MP, LIPA #### [facility] [address] [place] [address] Dr. Calin Marshall HbA1c (Bld) [Mass fraction] 5.0 % Normal 4.5-6.2 [facility] Comment on above: Performed By: #### C MP, LIPA #### [facility] [address] [place] [address] Dr. Calin Marshall CHON BOX TEST PT SEND OUTo n 08-10-2022 SENT TO REF LAB 08/10/2022 Normal [facility] Comment on above: Performed By: #### R UBIGG #### [facility] [address] [place] [address] Dr. Calin Marshall TYPE AND SCREENon 08-10-2022 TYPE AND SCREEN Negative Normal [facility] Comment on above: Performed By: #### R UBIGG #### [facility] [address] [place] [address] Dr. Calin Marshall US PREG TVon 07-26-2022 [...] CALDERON OLSON Date: 2022-07-26 07:08 Normal [facility] CBC AUTO DIFFon 07-12-2022 BASO # 0.1 103/ul Normal 0.0-0.1 [facility] Comment on above: Performed By: #### R UBIGG #### [facility] [address] [place] [address] Dr. Calin Marshall Basophils/100 WBC (Bld) 0.3 % Normal 0.2-2.0 [facility] Comment on above: Performed By: #### R UBIGG #### [facility] [address] [place] [address] Dr. Calin Marshall EO # 0.0 103/ul Normal 0.0-0.7 [facility] Comment on above: Performed By: #### R UBIGG #### [facility] [address] [place] [address] Dr. Calin Marshall Eosinophils/100 WBC (Bld) 0.2 % Critically low 0.9-7.0 [facility] Comment on above: Performed By: #### R UBIGG #### [facility] [address] [place] [address] Dr. Calin Marshall Erythrocyte distribution width (RBC) [Ratio] 11.9 % Normal 11.0-15.0 [facility] Comment on above: Performed By: #### R UBIGG #### [facility] [address] [place] [address] Dr. Calin Marshall Hematocrit (Bld) [Volume fraction] 40.8 % Normal 36.0-48.0 [facility] Comment on above: Performed By: #### R UBIGG #### [facility] [address] [address] [address] Calin Marshall Hemoglobin (Bld) [Mass/Vol] 14.4 g/dL Normal 12.0-16.0 [facility] Comment on above: Performed By: #### R UBIGG #### [facility] [address] [address] [address] Calin Marshall IG # 0.06 10e3/ul Critically high 0.00-0.03 [facility] Comment on above: Performed By: #### R UBIGG #### [facility] [address] [place] [address] Dr. Calin Marshall IG % 0.3 % Normal 0.0-0.5 [facility] Comment on above: Performed By: #### R UBIGG #### [facility] [address] [place] [address] Dr. Calin Marshall LYMPH # 3.4 103/ul Normal 1.2-3.8 [facility] Comment on above: Performed By: #### R UBIGG #### [facility] [address] [place] [address] Dr. Calin Marshall Lymphocytes/100 WBC (Bld) 18.6 % Critically low 20.5-60.0 [facility] Comment on above: Performed By: #### R UBIGG #### [facility] [address] [place] [address] Dr. Calin Marshall MANUAL DIFF REQ NO Normal [facility] Comment on above: Performed By: #### R UBIGG #### [facility] [address] [place] [address] Dr. Calin Marshall MCH (RBC) [Entitic mass] 30.3 pg Normal 26.7-34.0 [facility] Comment on above: Performed By: #### R UBIGG #### [facility] [address] [place] [address] Dr. Calin Marshall MCHC (RBC) [Mass/Vol] 35.3 g/dL Critically high 29.9-35.2 [facility] Comment on above: Performed By: #### R UBIGG #### [facility] [address] [place] [address] Dr. Calin Marshall MCV (RBC) [Entitic vol] 85.7 fL Normal 81.0-99.0 [facility] Comment on above: Performed By: #### R UBIGG #### [facility] [address] [address] [address] Calin Marshall MONO # 0.9 103/ul Critically high 0.3-0.8 [facility] Comment on above: Performed By: #### R UBIGG #### [facility] [address] [place] [address] Dr. Calin Marshall Monocytes/100 WBC (Bld) 4.9 % Normal 1.7-12.0 [facility] Comment on above: Performed By: #### R UBIGG #### [facility] [address] [place] [address] Dr. Calin Marshall NEUT # 13.8 103/ul Critically high 1.4-6.5 [facility] Comment on above: Performed By: #### R UBIGG #### [facility] [address] [place] [address] Dr. Calin Marshall Neutrophils/100 WBC (Bld) 75.7 % Critically high 43.0-75.0 [facility] Comment on above: Performed By: #### R UBIGG #### [facility] [address] [place] [address] Dr. Calin Marshall Platelet mean volume (Bld) [Entitic vol] 9.5 fL Normal 9.5-13.5 [facility] Comment on above: Performed By: #### R UBIGG #### [facility] [address] [place] [address] Dr. Calin Marshall PLT 427 103/ul Normal 150-450 [facility] Comment on above: Performed By: #### R UBIGG #### [facility] [address] [place] [address] Dr. Calin Marshall RBC 4.76 106/ul Normal 4.20-5.40 [facility] Comment on above: Performed By: #### R UBIGG #### [facility] [address] [place] [address] Dr. Calin Marshall WBC 18.2 103/ul Critically high 4.0-11.0 [facility] Comment on above: Performed By: #### R UBIGG #### [facility] [address] [place] [address] Dr. Calin Marshall ER URINE PROFILEon 3 Bilirubin Ql (U) Negative Normal NEGATIVE [facility] Comment on above: Performed By: #### C MP, LIPA #### [facility] [address] [place] [address] Dr. Calin Marshall Clarity (U) CLEAR Normal CLEAR [facility] Comment on above: Performed By: #### C MP, LIPA #### [facility] [address] [place] [address] Dr. Calin Marshall Color (U) YELLOW Normal YELLOW [facility] Comment on above: Performed By: #### C MP, LIPA #### [facility] [address] [place] [address] Dr. Calin HANDY A micrscopic examination will be performed if indicated. Normal [facility] Comment on above: Performed By: #### C MP, LIPA #### [facility] [address] [place] [address] Dr. Calin Marshall Glucose Ql (U) Negative Normal NEGATIVE [facility] Comment on above: Performed By: #### C MP, LIPA #### [facility] [address] [place] [address] Dr. Calin Marshall Hemoglobin Ql (U) SMALL Abnormal NEGATIVE [facility] Comment on above: Performed By: #### C MP, LIPA #### [facility] [address] [place] [address] Dr. Calin Marshall Ketones Ql (U) >=80 Abnormal NEGATIVE [facility] Comment on above: Performed By: #### C MP, LIPA #### [facility] [address] [place] [address] Dr. Calin Marshall LEUKOCYTES Negative Normal NEGATIVE [facility] Comment on above: Performed By: #### C MP, LIPA #### [facility] [address] [place] [address] Dr. Calin Marshall Nitrite Ql (U) Negative Normal NEGATIVE [facility] Comment on above: Performed By: #### C MP, LIPA #### [facility] [address] [place] [address] Dr. Calin Marshall pH (U) 6.0 [pH] Normal 5-9 [facility] Comment on above: Performed By: #### C MP, LIPA #### [facility] [address] [place] [address] Dr. Calin Marshall Protein (U) [Mass/Vol] 30 mg/dL Abnormal NEGATIVE/ TRACE [facility] Comment on above: Performed By: #### C MP, LIPA #### [facility] [address] [place] [address] Dr. Calin Marshall SPEC GRAVITY >=1.030 Abnormal 1.005-<=1.025 [facility] Comment on above: Performed By: #### C MP, LIPA #### [facility] [address] [place] [address] Dr. Calin Marshall UR MICRO IND INDICATED Normal [facility] Comment on above: Performed By: #### C MP, LIPA #### [facility] [address] [place] [address] Dr. Calin Marshall Urobilinogen Qn (U) 0.2 {Bridger'U}/dL Normal 0.2 - 1. 0 [facility] Comment on above: Performed By: #### C MP, LIPA #### [facility] [address] [place] [address] Dr. Calin Marshall LIPASEon 07-12-2022 Lipase [Catalytic activity/Vol] 186.0 U/L Normal 73.0-393.0 [facility] Comment on above: Performed By: #### C MP, LIPA #### [facility] [address] [address] [address] Calin Marshall PROF 14(COMP METB)on 023 Albumin [Mass/Vol] 4.6 g/dL Normal 3.4-5.0 [facility] Comment on above: Performed By: #### C MP, LIPA #### [facility] [address] [address] [address] Calin Marshall Albumin/Globulin [Mass ratio] 1.0 {ratio} Normal [facility] Comment on above: Performed By: #### C MP, LIPA #### [facility] [address] [address] [address] Calin Marshall ALP [Catalytic activity/Vol] 100 U/L Normal 46-116 [facility] Comment on above: Performed By: #### C MP, LIPA #### [facility] [address] [place] [address] Dr. Calin Marshall ALT [Catalytic activity/Vol] 25 U/L Normal 14-59 [facility] Comment on above: Performed By: #### C MP, LIPA #### [facility] [address] [address] [address] Calin Marshall Anion gap [Moles/Vol] 18.6 mmol/L Normal [facility] Comment on above: Performed By: #### C MP, LIPA #### [facility] [address] [address] [address] Calin Marshall AST [Catalytic activity/Vol] 15 U/L Normal 15-37 [facility] Comment on above: Performed By: #### C MP, LIPA #### [facility] [address] [address] [address] Calin Marshall Bilirubin [Mass/Vol] 0.5 mg/dL Normal 0.2-1.0 [facility] Comment on above: Performed By: #### C MP, LIPA #### [facility] [address] [address] [address] Calin Marshall Calcium [Mass/Vol] 10.8 mg/dL Critically high 8.5-10.1 [facility] Comment on above: Performed By: #### C MP, LIPA #### [facility] [address] [address] [address] Calin Marshall Chloride [Moles/Vol] 95 mmol/L Critically low 98-107 [facility] Comment on above: Performed By: #### C MP, LIPA #### [facility] [address] [address] [address] Calin Marshall CO2 [Moles/Vol] 22.8 mmol/L Normal 21.0-32.0 [facility] Comment on above: Performed By: #### C MP, LIPA #### [facility] [address] [address] [address] Calin Marshall Creatinine [Mass/Vol] 0.86 mg/dL Normal 0.55-1.02 [facility] Comment on above: Performed By: #### C MP, LIPA #### [facility] [address] [address] [address] Calin Marshall EGFR-AF MALAWIAN >60 Normal >=60 [facility] Comment on above: Performed By: #### C MP, LIPA #### [facility] [address] [address] [address] Calin Marshall EGFR-NON AF MALAWIAN >60 Normal >=60 [facility] Comment on above: Performed By: #### C MP, LIPA #### [facility] [address] [address] [address] Calin Marshall Globulin (S) [Mass/Vol] 4.6 g/dL Normal [facility] Comment on above: Performed By: #### C MP, LIPA #### [facility] [address] [address] [address] Calin Marshall Glucose [Mass/Vol] 79 mg/dL Normal 74-106 [facility] Comment on above: Performed By: #### C MP, LIPA #### [facility] [address] [address] [address] Calin Marshall Potassium [Moles/Vol] 3.4 mmol/L Critically low 3.5-5.1 [facility] Comment on above: Performed By: #### C MP, LIPA #### [facility] [address] [place] [address] Dr. Calin Marshall Protein [Mass/Vol] 9.2 g/dL Critically high 6.4-8.2 [facility] Comment on above: Performed By: #### C MP, LIPA #### [facility] [address] [place] [address] Dr. Calin Marshall Sodium [Moles/Vol] 133 mmol/L Critically low 136-145 [facility] Comment on above: Performed By: #### C MP, LIPA #### [facility] [address] [place] [address] Dr. Calin Marshall Urea nitrogen [Mass/Vol] 10.0 mg/dL Normal 7.0-18.0 [facility] Comment on above: Performed By: #### C MP, LIPA #### [facility] [address] [place] [address] Dr. Calin Marshall Urea nitrogen/Creatinine [Mass ratio] 11.6 mg/mg Normal [facility] Comment on above: Performed By: #### C MP, LIPA #### [facility] [address] [place] [address] Dr. Calin Marshall URINE MICROSCOPIC ONLYon BACTERIA TRACE Abnormal NONE SEEN [facility] Comment on above: Performed By: #### C MP, LIPA #### [facility] [address] [place] [address] Dr. Calin Marshall Bacteria identified Cx Nom (U) NOT INDICATED Normal [facility] Comment on above: Performed By: #### C MP, LIPA #### [facility] [address] [place] [address] Dr. Calin Marshall CAST NONE SEEN Normal NONE SEEN [facility] Comment on above: Performed By: #### C MP, LIPA #### [facility] [address] [place] [address] Dr. Calni Marshall Crystals LM Nom (Urine sed) NONE SEEN Normal NONE SEEN [facility] Comment on above: Performed By: #### C MP, LIPA #### [facility] [address] [place] [address] Dr. Calin Marshall Epithelial cells LM Ql (Urine sed) RARE Normal NONE SEEN /RARE [facility] Comment on above: Performed By: #### C MP, LIPA #### [facility] [address] [place] [address] Dr. Calin Marshall MUCOUS NONE SEEN Normal NONE SEEN [facility] Comment on above: Performed By: #### C MP, LIPA #### [facility] [address] [place] [address] Dr. Calin Marshall RBC 0-2 Normal 0-2 [facility] Comment on above: Performed By: #### C MP, LIPA #### [facility] [address] [place] [address] Dr. Calin Marshall WBC NONE SEEN Normal NONE SEEN [facility] Comment on above: Performed By: #### C MP, LIPA #### [facility] [address] [place] [address] Dr. Calin Marshall CBC AUTO DIFFon 07-08-2022 BASO # 0.1 103/ul Normal 0.0-0.1 [facility] Comment on above: Performed By: #### C MP, LIPA #### [facility] [address] [place] [address] Dr. Calin Marshall Basophils/100 WBC (Bld) 0.4 % Normal 0.2-2.0 [facility] Comment on above: Performed By: #### C MP, LIPA #### [facility] [address] [place] [address] Dr. Calin Marshall EO # 0.1 103/ul Normal 0.0-0.7 [facility] Comment on above: Performed By: #### C MP, LIPA #### [facility] [address] [place] [address] Dr. Calin Marshall Eosinophils/100 WBC (Bld) 0.3 % Critically low 0.9-7.0 [facility] Comment on above: Performed By: #### C MP, LIPA #### [facility] [address] [place], [place] [id number] Dr. Calin Marshall Erythrocyte distribution width (RBC) [Ratio] 12.0 % Normal 11.0-15.0 [facility] Comment on above: Performed By: #### C MP, LIPA #### [facility] [address] [place] [address] Dr. Calin Marshall Hematocrit (Bld) [Volume fraction] 40.3 % Normal 36.0-48.0 [facility] Comment on above: Performed By: #### C MP, LIPA #### [facility] [address] [place] [address] Dr. Calin Marshall Hemoglobin (Bld) [Mass/Vol] 14.3 g/dL Normal 12.0-16.0 [facility] Comment on above: Performed By: #### C MP, LIPA #### [facility] [address] [place] [address] Dr. Calin Marshall IG # 0.05 10e3/ul Critically high 0.00-0.03 [facility] Comment on above: Performed By: #### C MP, LIPA #### [facility] [address] [place] [address] Dr. Calin Marshall IG % 0.3 % Normal 0.0-0.5 [facility] Comment on above: Performed By: #### C MP, LIPA #### [facility] [address] [place] [address] Dr. Calin Marshall LYMPH # 3.5 103/ul Normal 1.2-3.8 [facility] Comment on above: Performed By: #### C MP, LIPA #### [facility] [address] [place] [address] Dr. Calin Marshall Lymphocytes/100 WBC (Bld) 20.3 % Critically low 20.5-60.0 [facility] Comment on above: Performed By: #### C MP, LIPA #### [facility] [address] [place] [address] Dr. Calin Marshall MANUAL DIFF REQ NO Normal [facility] Comment on above: Performed By: #### C MP, LIPA #### [facility] [address] [address] [address] Calin Marshall MCH (RBC) [Entitic mass] 30.5 pg Normal 26.7-34.0 [facility] Comment on above: Performed By: #### C MP, LIPA #### [facility] [address] [place] [address] Dr. Calin Marshall MCHC (RBC) [Mass/Vol] 35.5 g/dL Critically high 29.9-35.2 [facility] Comment on above: Performed By: #### C MP, LIPA #### [facility] [address] [place] [address] Dr. Calin Marshall MCV (RBC) [Entitic vol] 85.9 fL Normal 81.0-99.0 [facility] Comment on above: Performed By: #### C MP, LIPA #### [facility] [address] [place] [address] Dr. Calin Marshall MONO # 0.8 103/ul Normal 0.3-0.8 [facility] Comment on above: Performed By: #### C MP, LIPA #### [facility] [address] [place] [address] Dr. Calin Marshall Monocytes/100 WBC (Bld) 4.6 % Normal 1.7-12.0 [facility] Comment on above: Performed By: #### C MP, LIPA #### [facility] [address] [place] [address] Dr. Calin Marshall NEUT # 12.8 103/ul Critically high 1.4-6.5 [facility] Comment on above: Performed By: #### C MP, LIPA #### [facility] [address] [place] [address] Dr. Calin Marshall Neutrophils/100 WBC (Bld) 74.1 % Normal 43.0-75.0 [facility] Comment on above: Performed By: #### C MP, LIPA #### [facility] [address] [place] [address] Dr. Calin Marshall Platelet mean volume (Bld) [Entitic vol] 9.6 fL Normal 9.5-13.5 [facility] Comment on above: Performed By: #### C MP, LIPA #### [facility] [address] [place] [address] Dr. Calin Marshall PLT 415 103/ul Normal 150-450 [facility] Comment on above: Performed By: #### C MP, LIPA #### [facility] [address] [place] [address] Dr. Calin Marshall RBC 4.69 106/ul Normal 4.20-5.40 [facility] Comment on above: Performed By: #### C MP, LIPA #### [facility] [address] [place] [address] Dr. Calin Marshall WBC 17.3 103/ul Critically high 4.0-11.0 [facility] Comment on above: Performed By: #### C MP, LIPA #### [facility] [address] [place] [address] Dr. Calin Marshall CULTURE URINEon 07-08-2022 CULTURE URINE Culture Observations : MODERATE GROWTH OF MIXED GENITAL MARIO. NO POTENTIAL PATHOGENS SEEN. Normal [facility] Comment on above: Performed By: #### R UBIGG #### [facility] [address] [place] [address] Dr. Calin Marshall ER URINE PROFILEon 2 Bilirubin Ql (U) Negative Normal NEGATIVE [facility] Comment on above: Performed By: #### Ivan FRAUSTO UMICRO #### [facility] [address] [place] [address] Dr. Calin Marshall Clarity (U) CLEAR Normal CLEAR [facility] Comment on above: Performed By: #### Ivan FRAUSTO UMICRO #### [facility] [address] [place] [address] Dr. Calin Marshall Color (U) LT. YELLOW Normal YELLOW [facility] Comment on above: Performed By: #### E LISBET UMICRO #### [facility] [address] [place] [address] Dr. Calin Marshall ERUAHD A micrscopic examination will be performed if indicated. Normal [facility] Comment on above: Performed By: #### ELDA ZHOURO #### [facility] [address] [address] [address] Calin Marshall Glucose Ql (U) Negative Normal NEGATIVE [facility] Comment on above: Performed By: #### ELDA ZHOURO #### [facility] [address] [place] [address] Dr. Calin Marshall Hemoglobin Ql (U) SMALL Abnormal NEGATIVE [facility] Comment on above: Performed By: #### AZUL ZHOUICRO #### [facility] [address] [place] [address] Dr. Calin Marshall Ketones Ql (U) 15 mg/dl Abnormal NEGATIVE [facility] Comment on above: Performed By: #### ELDA ZHOURO #### [facility] [address] [place] [address] Dr. Calin Marshall LEUKOCYTES Negative Normal NEGATIVE [facility] Comment on above: Performed By: #### ELDA ZHOURO #### [facility] [address] [place] [address] Dr. Calin Marshall Nitrite Ql (U) Negative Normal NEGATIVE [facility] Comment on above: Performed By: #### ELDA ZHOURO #### [facility] [address] [place] [address] Dr. Calin Marshall pH (U) 6.0 [pH] Normal 5-9 [facility] Comment on above: Performed By: #### ELDA ZHOURO #### [facility] [address] [place] [address] Dr. Calin Marshall SPEC GRAVITY <=1.005 Abnormal 1.005-<=1.025 [facility] Comment on above: Performed By: #### ELDA ZHOURO #### [facility] [address] [place] [address] Dr. Calin Marshall UA PROTEIN Negative Normal NEGATIVE/ TRACE [facility] Comment on above: Performed By: #### ELDA ZHOURO #### [facility] [address] [place] [address] Dr. Calin Marshall UR MICRO IND INDICATED Normal [facility] Comment on above: Performed By: #### KENNA ZHOU #### [facility] [address] [place] [address] Dr. Calin Marshall Urobilinogen Qn (U) 0.2 {Bridger'U}/dL Normal 0.2 - 1. 0 [facility] Comment on above: Performed By: #### KENNA ZHOU #### [facility] [address] [place] [address] Dr. Calin Marshall PROF 14(COMP METB)on 022 Albumin [Mass/Vol] 4.4 g/dL Normal 3.4-5.0 [facility] Comment on above: Performed By: #### C YULIANA, LIPA #### [facility] [address] [place] [address] Dr. Calin Marshall Albumin/Globulin [Mass ratio] 1.0 {ratio} Normal [facility] Comment on above: Performed By: #### C MP, LIPA #### [facility] [address] [place] [address] Dr. Calin Marshall ALP [Catalytic activity/Vol] 93 U/L Normal 46-116 [facility] Comment on above: Performed By: #### C MP, LIPA #### [facility] [address] [place] [address] Dr. Calin Marshall ALT [Catalytic activity/Vol] 34 U/L Normal 14-59 [facility] Comment on above: Performed By: #### C MP, LIPA #### [facility] [address] [place] [address] Dr. Calin Marshall Anion gap [Moles/Vol] 17.3 mmol/L Normal [facility] Comment on above: Performed By: #### C MP, LIPA #### [facility] [address] [place] [address] Dr. Calin Marshall AST [Catalytic activity/Vol] 21 U/L Normal 15-37 [facility] Comment on above: Performed By: #### C MP, LIPA #### [facility] [address] [address] [address] Calin Marshall Bilirubin [Mass/Vol] 0.6 mg/dL Normal 0.2-1.0 [facility] Comment on above: Performed By: #### C MP, LIPA #### [facility] [address] [place] [address] Dr. Calin Marshall Calcium [Mass/Vol] 10.7 mg/dL Critically high 8.5-10.1 [facility] Comment on above: Performed By: #### C MP, LIPA #### [facility] [address] [place] [address] Dr. Calin Marshall Chloride [Moles/Vol] 96 mmol/L Critically low 98-107 [facility] Comment on above: Performed By: #### C MP, LIPA #### [facility] [address] [place] [address] Dr. Calin Marshall CO2 [Moles/Vol] 23.1 mmol/L Normal 21.0-32.0 [facility] Comment on above: Performed By: #### C MP, LIPA #### [facility] [address] [place] [address] Dr. Calin Marshall Creatinine [Mass/Vol] 0.83 mg/dL Normal 0.55-1.02 [facility] Comment on above: Performed By: #### C MP, LIPA #### [facility] [address] [place] [address] Dr. Calin Marshall EGFR-AF MALAWIAN >60 Normal >=60 [facility] Comment on above: Performed By: #### C MP, LIPA #### [facility] [address] [place] [address] Dr. Calin Marshall EGFR-NON AF MALAWIAN >60 Normal >=60 [facility] Comment on above: Performed By: #### C MP, LIPA #### [facility] [address] [place] [address] Dr. Calin Marshall Globulin (S) [Mass/Vol] 4.4 g/dL Normal [facility] Comment on above: Performed By: #### C MP, LIPA #### [facility] [address] [address] [address] Calin Marshall Glucose [Mass/Vol] 98 mg/dL Normal 74-106 [facility] Comment on above: Performed By: #### C MP, LIPA #### [facility] [address] [address] [address] Calin Marshall Potassium [Moles/Vol] 3.4 mmol/L Critically low 3.5-5.1 [facility] Comment on above: Performed By: #### C MP, LIPA #### [facility] [address] [place] [address] Dr. Calin Marshall Protein [Mass/Vol] 8.8 g/dL Critically high 6.4-8.2 [facility] Comment on above: Performed By: #### C MP, LIPA #### [facility] [address] [place] [address] Dr. Calin Marshall Sodium [Moles/Vol] 133 mmol/L Critically low 136-145 [facility] Comment on above: Performed By: #### C MP, LIPA #### [facility] [address] [place] [address] Dr. Calin Marshall Urea nitrogen [Mass/Vol] 8.0 mg/dL Normal 7.0-18.0 [facility] Comment on above: Performed By: #### C MP, LIPA #### [facility] [address] [place] [address] Dr. Calin Marshall Urea nitrogen/Creatinine [Mass ratio] 9.6 mg/mg Normal [facility] Comment on above: Performed By: #### C MP, LIPA #### [facility] [address] [place] [address] Dr. Calin Marshall URINE MICROSCOPIC ONLYon BACTERIA SMALL Abnormal NONE SEEN [facility] Comment on above: Performed By: #### E KENNA FRAUSTO #### [facility] [address] [address] [address] Calin Marshall Bacteria identified Cx Nom (U) INDICATED Normal [facility] Comment on above: Performed By: #### Ivan FRAUSTO, UMICRO #### [facility] [address] [place] [address] Dr. Calin Marshall CAST NONE SEEN Normal NONE SEEN [facility] Comment on above: Performed By: #### E LISBET, UMICRO #### [facility] [address] [place] [address] Dr. Calin Marshall Crystals LM Nom (Urine sed) NONE SEEN Normal NONE SEEN [facility] Comment on above: Performed By: #### E LISBET, UMICRO #### [facility] [address] [place] [address] Dr. Calin Marshall Epithelial cells LM Ql (Urine sed) MODERATE Abnormal NONE SEEN /RARE [facility] Comment on above: Performed By: #### Ivan FRAUSTO UMICRO #### [facility] [address] [place] [address] Dr. Calin Marshall MUCOUS NONE SEEN Normal NONE SEEN [facility] Comment on above: Performed By: #### Ivan FRAUSTO UMICRO #### [facility] [address] [place] [address] Dr. Calin Marshall RBC 2-5 Abnormal 0-2 [facility] Comment on above: Performed By: #### Ivan FRAUSTO UMICRO #### [facility] [address] [place] [address] Dr. Calin Marshall WBC 2-5 Abnormal NONE SEEN [facility] Comment on above: Performed By: #### Ivan FRAUSTO UMICRO #### [facility] [address] [place] [address] Dr. Calin Marshall Vitamin D 25-OHon 08-09-2021 VIT D 25 OH 29 ng/ml Low >29 [facility] Director Communications Comment on above: Result Comment: Baylee min D Status Deficiency <20 ng/mL Insufficiency 20-29 ng/mL Optimal 30-100 ng/mL Possible Toxicity >=150 ng/mL Performed By: #### V ITD #### [facility] [address] [place], [place] [id number] [place] 06-15-2020 Consent [id number]# 1.00CD:127 Normal [facility] Registrationon 06-15-2020 Registration [id number]# 1.00CD:127 Normal [facility] Follow Up (Plastic Surgery)o n 07-17-2019 Follow Up (Plastic Surgery) Provider Impressions Status post excision epidermoid cyst right neck and chest, doing well Follow-up when necessary *Chief Complaint Chief Complaint Free Text Note Form: pt here for post op chest and neck History of Present Illness Status post excision epidermoid cysts of right neck and chest. Review of Systems Complete-Female_UH_op timization: Constitutional: no fever, no chills, no recent weight gain, no recent weight loss and not feeling poorly. *Active Problems Chest mass (786.6) (R22.2) Migraine headache (346.90) (G43.909) Neck mass (784.2) (R22.1) Neck pain (723.1) (M54.2) Preop testing (V72.84) (Z01.818) Surgical History History of Appendectomy History of [place] tooth extraction Family History Family history of [...] Capsule *Vitals Vital Signs Recorded: 17Jul2019 09:48AM Pgzsrucxtys69.2 F, Oral Yzlswyks029 Ncazzubnu83 Height5 ft 2.5 in Kiiehr745 lb BMI Lymewauwud12.2 BSA Calculated1.88 Pain Scale0 Physical Exam Examination reveals some erythema in both sites. I have removed the sutures from the chest incision. We have discussed scar maturation and the use of mederma or scar guard 'Scores and Scales' Signatures Electronically signed by : Vikas Garrido MD,; Jul 17 2019 10:00AM EST (Author) [facility] Name NATALEE ALCOCER Pathologist: BRIAN SHAH DO Date of Procedure: 06/25/2019 Date Received: 06/25/2019 Date Reported 06/27/2019 Submitting Physician: VIKAS GARRIDO MD Location: [facility] Copy To/Referring/Attendin g: VIKAS GARRIDO MD Other External # FINAL DIAGNOSIS A. RIGHT NECK MASS: -- EPIDERMOID CYST. B. RIGHT CHEST MASS: -- EPIDERMOID CYST. Electronically Signed Out By BRIAN SHAH DO/JEROME By the signature on this report, the individual or group listed as making the Final Interpretation/Diagno sis certifies that they have reviewed this case. [...] 2 central area of specimen tas/06/26/2019 Normal [facility] History and Physical - Surgi endy Update [...] physician responsible for performing the procedure: yes Signatures/Attestatio n/Certification: Note Completion: Attending Provider Inpatient Certification StatementObservation patient/other outpatient visits Electronic Signatures: Vikas Garrido) (Signed 25-Jun-2019 07:07) Authored: History & Physical Reviewed, Signatures/Attestatio n/Certification Last Updated: 25-Jun-2019 07:07 by Vikas Garrido) [facility] Operative Reports - yriaon 06-25-2019 Operative Reports - [facility] PREOPERATIVE DIAGNOSIS: Mass of right neck and chest. POSTOPERATIVE DIAGNOSIS: Mass of right neck and chest. PROCEDURE: Excision of mass of right neck and chest. [employer] [facility] CONSULTANT: Henok Sanchez. ANESTHESIA: MAC. OPERATIVE INDICATIONS: The [...] Vikas Garrido MD EST EST DICTATION NUMBER: [id number] INTERNAL JOB NUMBER: [id number] CC: MIA HALIE DORSEY Electronic Signatures: Vikas Garrido) (Signed on 25-Jun-2019 09:40) Authored Unsigned, Draft (SYS GENERATED) (Entered on 25-Jun-2019 09:03) Entered Last Updated: 25-Jun-2019 09:40 by Vikas Garrido) [facility] Otheron 06-25-2019 Name NATALEE ALCOCER Pathologist: AYALA BENTONate of Procedure: 06/25/2019Date Received: 06/25/2019Date Reported 06/27/2019Submitting Physician: VIKAS GARRIDO MDLocation: [facility] Copy To/Referring/Attendin g:VIKAS GARRIDO MD Other External # FINAL DIAGNOSISA. RIGHT NECK MASS: -- EPIDERMOID CYST.B. RIGHT CHEST MASS: -- EPIDERMOID CYST. Electronically Signed Out By BRIAN SHAH DO/KXNBy the signature on this report, the individual or group listed as making theFinal Interpretation/Diagno sis certifies that they have reviewed this case. [...] 2 central area of specimen tas/06/26/2019 -[facility] Work Phone: Preop Checkliston 06-25-2019 Preop Checklist Preop Checklist: Preop Checklist: Arrival [id number] Arrival Time05:51 Procedure Typecyst off neck, right and upper right chest NPO [id number] 23:00 ID Band Onyes Allergy Bandyes Consent [...] Updated: 25-Jun-2019 06:11 by Mary Jaimes (HALEY) [facility] Patient Profile - Preop v2on 06-24-2019 Patient Profile - Preop v2 Profile: Initial Info: How to be AddressedHailey Spoken Language PreferredEnglish Source of Informationpatient Are you currently using the Personal Electronic Health Record or [email or web address] Are you interested in learning more about [facility] for the management of your healthnot at this time Instructions Givenbring 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 and belly button piercings were plastic and not metal she can keep them in Stated Reason for Admission cysts removed Primary Contact Name and NumberTrevor [phone] Other Contact Names and Numbersmatt dad [phone] Patient Belongingsclothes only Medications Brought to Hospitalno General Health: Weight in kg83 kilogram(s) Weight in rkv319 pound(s) Weight Methodstated Height in cm158.7 centimeter(s) Height in feet5 feet Height in inches2.5 inch(es) Height Methodstated BMI (kg/m2)32.955 square meter Patient or Family Member Reaction to Anesthesiano previous reaction; no previous family member reaction; no metal appendectomy wisdom teeth extracted control implant in left arm, under arm Blood Avoidance/Restriction snone Previous Transfusion Reactionno Health Mgmt: Symptoms/Conditions Managed at [facility]; obstetric/gynecologic ; skin Are You Currently Breastfeedingno Neurological Symptoms/Conditionsmi graines 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 Symptoms/Conditions Commenthas Nexplanon implant; LMP 4 months ago; 4 months post- Barriers to Managing Healthnone Are You no Relationship/Environ: Resource/Environmenta l Concernsnone Services Anticipated at Transitionnone Lives Withspouse; dependent child(christelle) Living Arrangementshouse [facility]ated [facility] Substance: Current or Former Substance Use never: e-Cigarette/Vaping YES: Cigarette/Tobacco, Alcohol, Street Drugs Tobacco Cessation Education (provide if tobacco use within the last 12 mos)not applicable Other Tobacco Use Commentsquit 4 years ago Alcohol Use Statuscurrent alcohol Alcohol Amount1-2 drinks Alcohol Frequencymonthly or less Problems Related to Alcohol [address] Drug/Inhalant/ Medication Use Statuscurrent street drug/inhalant/medicat ion abuse [address] Drug/Medication/ Inhalant Typemarijuana Street Drug/Medication/ Inhalant Routesmoking Frequency of Street Drug/Medication/Inhal ant Use2-4 times/month Risk Screens: Advance Directive/DNRno Advance [...] or have you been threatened or abused physically,emotionall y or sexually abused by anyoneno Do you feel UNSAFE going back to the place you are livingno Patient is Able to be Assessed for Learningyes Factors Influencing Readiness to Learninterest in learning Factors that Impact Ability to Learnnone Devices/Methods Used to Communicatenone Learning Preferenceswritten material; verbal instruction Cultural Considerationsnone Developmental Considerationsnone Orthodoxy Considerationsnone Other learner availableno [place] RiskPatient location auto qualifies him/her for HIGH RISK. Are there any cultural, spiritual, presybeterian practices/values/need s that are important for us to knowno [...] 25-Jun-2019 06:08 by Mary Jaimes (HALEY) Normal [facility] APTTon 06-21-2019 aPTT Coag (Bld) [Time] 37 s Normal 28 - 38 [facility] Comment on above: Result Comment: THE APTT IS NO LONGER USED FOR MONITORING UNFRACTIONATED HEPARIN THERAPY. FOR MONITORING HEPARIN THERAPY, USE THE HEPARIN ASSAY. Performed By: #### A PTT #### [address] [address] Activated Partial Thrombopla stin Timeon 06-21-2019 aPTT Coag (PPP) [Time] 37 {sec} 28 - 38 -[facility] Work Phone: Comment on above: THE APTT IS NO LONGE R USED FOR MONITORING UNFRACTIONATED HEPARIN THERAPY. FOR MONITORING HEPARIN THERAPY, USE THE HEPARIN ASSAY. CBC AND DIFFERENTIALon 06-21 % AUTOMATED IMMATURE GRAN 0.1 % Normal 0.0 - 0.9 [facility] Comment on above: Result Comment: Perc ent differential counts (%) should be interpreted in the context of the absolute cell counts (cells/L). Performed By: #### C BCDF #### [address] [address] Basophils (Bld) [#/Vol] 0.03 10*3/uL Normal 0.00 - 0.10 [facility] Comment on above: Performed By: #### C BCDF #### [address] [address] Eosinophils (Bld) [#/Vol] 0.04 10*3/uL Normal 0.00 - 0.70 [facility] Comment on above: Performed By: #### C BCDF #### [address] [address] Lymphocytes (Bld) [#/Vol] 3.08 10*3/uL Normal 1.20 - 4.80 [facility] Comment on above: Performed By: #### C BCDF #### [address] [address] Monocytes (Bld) [#/Vol] 0.49 10*3/uL Normal 0.10 - 1.00 [facility] Comment on above: Performed By: #### C BCDF #### [address] [address] Neutrophils (Bld) [#/Vol] 5.85 10*3/uL Normal 1.20 - 7.70 [facility] Comment on above: Performed By: #### C BCDF #### [address] [address] Platelets (Bld) [#/Vol] 363 10*3/uL Normal 150 - 450 [facility] Comment on above: Performed By: #### C BCDF #### [address] [address] RBC (Bld) [#/Vol] 4.68 x10E12/L Normal 4.00 - 5.20 [facility] Comment on above: Performed By: #### C BCDF #### [address] [address] WBC (Bld) [#/Vol] 9.5 10*3/uL Normal 4.4 - 11.3 [facility] Comment on above: Performed By: #### C BCDF #### [address] [address] Basophils/100 WBC (Bld) 0.3 % 0.0 - 2.0 [facility] Work Phone: Comment on above: Performed By: #### C BCDF #### [address] [address] Eosinophils/100 WBC (Bld) 0.4 % 0.0 - 6.0 [facility] Work Phone: Comment on above: Performed By: #### C BCDF #### [address] [address] Erythrocyte distribution width (RBC) [Ratio] 11.9 % See Below [facility] Work Phone: Comment on above: Performed By: #### C BCDF #### [address] [address] Reference Range: 11. 5 - 14.5 Hematocrit (Bld) [Volume fraction] 41.6 % See Below [facility] Work Phone: Comment on above: Performed By: #### C BCDF #### [address] [address] Reference Range: 36. 0 - 46.0 Hemoglobin (Bld) [Mass/Vol] 13.9 g/dL See Below [facility] Work Phone: Comment on above: Performed By: #### C BCDF #### [address] [address] Reference Range: 12. 0 - 16.0 Lymphocytes/100 WBC (Bld) 32.4 % See Below [facility] Work Phone: Comment on above: Performed By: #### C BCDF #### [address] [address] Reference Range: 13. 0 - 44.0 MCHC (RBC) [Mass/Vol] 33.4 g/dL See Below - [facility] Work Phone: Comment on above: Performed By: #### C BCDF #### [address] [address] Reference Range: 32. 0 - 36.0 MCV (RBC) [Entitic vol] 89 fL 80 - 100 [facility] Work Phone: Comment on above: Performed By: #### C BCDF #### [address] [address] Monocytes/100 WBC (Bld) 5.2 % 2.0 - 10.0 [facility] Work Phone: Comment on above: Performed By: #### C BCDF #### [address] [address] Neutrophils/100 WBC (Bld) 61.6 % See Below [facility] Work Phone: Comment on above: Performed By: #### C BCDF #### [address] [address] Reference Range: 40. 0 - 80.0 COMPREHENSIVE PANELon 2018 Albumin [Mass/Vol] 4.8 g/dL Normal 3.4 - 5.0 [facility] Comment on above: Performed By: #### C MP #### [address] [address] ALP [Catalytic activity/Vol] 83 U/L Normal 33 - 110 [facility] Comment on above: Performed By: #### C MP #### [facility] [address] [place] [address] ALT [Catalytic activity/Vol] 15 U/L Normal 7 - 45 [facility] Comment on above: Result Comment: Janet ents treated with Sulfasalazine may generate falsely decreased results for ALT. Performed By: #### C MP #### [facility] [address] [place] [address] Anion gap [Moles/Vol] 11 mmol/L Normal 10 - 20 [facility] Comment on above: Performed By: #### C MP #### [address] [address] AST [Catalytic activity/Vol] 12 U/L Normal 9 - 39 [facility] Comment on above: Performed By: #### C MP #### [facility] [address] [place] [address] Bilirubin [Mass/Vol] 0.3 mg/dL Normal 0.0 - 1.2 [facility] Comment on above: Performed By: #### C MP #### [address] [address] Calcium [Mass/Vol] 10.7 mg/dL High 8.6 - 10.3 [facility] Comment on above: Performed By: #### C MP #### [address] [address] Chloride [Moles/Vol] 102 mmol/L Normal 98 - 107 [facility] Comment on above: Performed By: #### C MP #### [address] [address] Creatinine [Mass/Vol] 0.80 mg/dL Normal 0.50 - 1.05 [facility] Comment on above: Performed By: #### C MP #### [address] [address] GFR- AM. >60 Normal >60 [facility] Comment on above: Result Comment: CALC ULATIONS OF ESTIMATED GFR ARE PERFORMED USING THE MDRD STUDY EQUATION FOR THE IDMS-TRACEABLE CREATININE METHODS. CLIN CHEM 2007;53:766-72 Performed By: #### C MP #### [address] [address] GFR-NON AM. >60 Normal >60 [facility] Comment on above: Performed By: #### C MP #### [address] [address] Glucose [Mass/Vol] 82 mg/dL Normal 74 - 99 [facility] Comment on above: Performed By: #### C MP #### [address] [address] HCO3 (Bld) [Moles/Vol] 26 mmol/L Normal 21 - 32 [facility] Comment on above: Performed By: #### C MP #### [address] [address] Potassium [Moles/Vol] 4.1 mmol/L Normal 3.5 - 5.3 [facility] Comment on above: Performed By: #### C MP #### [address] [address] Protein [Mass/Vol] 8.2 g/dL Normal 6.4 - 8.2 [facility] Comment on above: Performed By: #### C MP #### [address] [address] Sodium [Moles/Vol] 135 mmol/L Low 136 - 145 [facility] Comment on above: Performed By: #### C MP #### [address] [address] Urea nitrogen [Mass/Vol] 16 mg/dL Normal 6 - 23 [facility] Comment on above: Performed By: #### C MP #### [address] [address] Complete Blood Count + Diffe youngon 06-21-2019 Basophils (Bld) [#/Vol] 0.03 {x10E9/L} See Below [facility] Work Phone: Comment on above: Reference Range: 0.0 0 - 0.10 Eosinophils (Bld) [#/Vol] 0.04 {x10E9/L} See Below [facility] Work Phone: Comment on above: Reference Range: 0.0 0 - 0.70 Lymphocytes (Bld) [#/Vol] 3.08 {x10E9/L} See Below [facility] Work Phone: Comment on above: Reference Range: 1.2 0 - 4.80 Monocytes (Bld) [#/Vol] 0.49 {x10E9/L} See Below [facility] Work Phone: Comment on above: Reference Range: 0.1 0 - 1.00 Neutrophils (Bld) [#/Vol] 5.85 {x10E9/L} See Below [facility] Work Phone: Comment on above: Reference Range: 1.2 0 - 7.70 Platelets (Bld) [#/Vol] 363 {x10E9/L} 150 - 450 [facility] Work Phone: RBC (Bld) [#/Vol] 4.68 {x10E12/L} See Below [facility] Work Phone: Comment on above: Reference Range: 4.0 0 - 5.20 WBC (Bld) [#/Vol] 9.5 {x10E9/L} 4.4 - 11.3 [facility] Work Phone: Complete Blood Count + Differential 0.1 % 0.0 - 0.9 [facility] Work Phone: Comment on above: Percent differential counts (%) should be interpreted in the context of the absolute cell counts (cells/L). HCG, Serum - Qualitativeon 08-22-2018 HCG ( test) Ql Negative Negative [facility] Work Phone: HCG,SERUM QUALITATIVEon 12- HCG,SERUM QUALITATIVE Negative Normal Negative [facility] Comment on above: Performed By: #### H CGS #### [address] [address] Hematologyon 06-21-2019 INR Coag (PPP) [Relative time] 1.1 {INR} 0.9 - 1.1 [facility] Work Phone: PT Coag (PPP) [Time] 12.3 {sec} 9.7 - 12.7 [facility] Work Phone: Metabolic Panelon 06-21-2019 ALP [Catalytic activity/Vol] 83 U/L 33 - 110 [facility] Work Phone: Anion gap [Moles/Vol] 11 mmol/L 10 - 20 [facility] Work Phone: Bilirubin [Mass/Vol] 0.3 mg/dL 0.0 - 1.2 [facility] Work Phone: Calcium [Mass/Vol] 10.7 mg/dL above high threshold 8.6 - 10.3 [facility] Work Phone: Chloride [Moles/Vol] 102 mmol/L 98 - 107 [facility] Work Phone: CO2 [Moles/Vol] 26 mmol/L 21 - 32 [facility] Work Phone: Creatinine [Mass/Vol] 0.80 mg/dL See Below [facility] Work Phone: Comment on above: Reference Range: 0.5 0 - 1.05 Glucose [Mass/Vol] 82 mg/dL 74 - 99 [facility] Work Phone: Potassium [Moles/Vol] 4.1 mmol/L 3.5 - 5.3 [facility] Work Phone: Protein [Mass/Vol] 8.2 g/dL 6.4 - 8.2 [facility] Work Phone: Sodium [Moles/Vol] 135 mmol/L below low threshold 136 - 145 [facility] Work Phone: Urea nitrogen [Mass/Vol] 16 mg/dL 6 - 23 [facility] Work Phone: Otheron 06-21-2019 Albumin BCP dye [Mass/Vol] 4.8 g/dL 3.4 - 5.0 [facility] Work Phone: ALT With P-5'-P [Catalytic activity/Vol] 15 U/L 7 - 45 [facility] Work Phone: Comment on above: Patients treated wit h Sulfasalazine may generate falsely decreased results for ALT. AST With P-5'-P [Catalytic activity/Vol] 12 U/L 9 - 39 [facility] Work Phone: >60 >60 [facility] Work Phone: Comment on above: CALCULATIONS OF [place] MATED GFR ARE PERFORMED USING THE MDRD STUDY EQUATION FOR THE IDMS-TRACEABLE CREATININE METHODS. CLIN CHEM 2007;53:766-72 PT/INRon 06-21-2019 INR Coag (PPP) [Relative time] 1.1 {INR} Normal 0.9 - 1.1 [facility] Comment on above: Performed By: #### P TINR #### [facility] [address] [place] [address] PT Coag (PPP) [Time] 12.3 s Normal 9.7 - 12.7 [facility] Comment on above: Performed By: #### P TINR #### [facility] [address] [place] [address] Vital Signs Date Time Vital Sign Value Performing Clinician Facility 01-23-2024 11:15-0400 Body height 154.9 cm Shala Prince MD Work Phone: [facility] 01-23-2024 11:15-0400 Body mass index (BMI) [Ratio] 29.68 kg/m2 Shala Prince MD Work Phone: [facility] 01-23-2024 11:15-0400 Body temperature 97.39 [degF] Shala Prince MD Work Phone: [facility] 01-23-2024 11:15-0400 Body weight 71.22 kg Shala Prince MD Work Phone: [facility] 01-23-2024 11:15-0400 Diastolic blood pressure 86 mm[Hg] Shala Prince MD Work Phone: [facility] 01-23-2024 11:15-0400 Heart rate 70 /min Shala Prince MD Work Phone: [facility] 01-23-2024 11:15-0400 SaO2% (BldA) [Mass fraction] 99 % Shala Prince MD Work Phone: [facility] 01-23-2024 11:15-0400 Systolic blood pressure 133 mm[Hg] Shala Prince MD Work Phone: [facility] 01-15-2024 16:30-0400 Body temperature 97.5 [degF] Braden Hawk MD Work Phone: [facility] [email or web address] 01-15-2024 16:30-0400 Diastolic blood pressure 88 mm[Hg] Braden Hawk MD Work Phone: [facility] [email or web address] 01-15-2024 16:30-0400 Heart rate 86 /min Braden Hawk MD Work Phone: [facility] [email or web address] 01-15-2024 16:30-0400 Respiratory rate 15 /min Braden Hawk MD Work Phone: [facility] [email or web address] 01-15-2024 16:30-0400 SaO2% (BldA) [Mass fraction] 97 % Braden Hawk MD Work Phone: [facility] [email or web address] 01-15-2024 16:30-0400 Systolic blood pressure 135 mm[Hg] Braden Hawk MD Work Phone: [facility] [email or web address] 01-15-2024 12:28-0400 Body height 154.9 cm Braden Hawk MD Work Phone: [facility] [email or web address] 01-15-2024 12:28-0400 Body mass index (BMI) [Ratio] 30.23 kg/m2 Braden Hawk MD Work Phone: [facility] [email or web address] 01-15-2024 12:28-0400 Body weight 72.58 kg Braden Hawk MD Work Phone: [facility] [email or web address] 12-03-2023 15:56-0400 Body temperature 98.6 [degF] Flip Hernandez MD Work Phone: [facility] [email or web address] 12-03-2023 15:56-0400 Diastolic blood pressure 84 mm[Hg] Flip Hernandez MD Work Phone: [facility] [email or web address] 12-03-2023 15:56-0400 Heart rate 87 /min Flip Hernandez MD Work Phone: [facility] [email or web address] 12-03-2023 15:56-0400 Respiratory rate 16 /min Flip Hernandez MD Work Phone: [facility] [email or web address] 12-03-2023 15:56-0400 SaO2% (BldA) [Mass fraction] 98 % Flip Hernandez MD Work Phone: [facility] [email or web address] 12-03-2023 15:56-0400 Systolic blood pressure 129 mm[Hg] Flip Hernandez MD Work Phone: [facility] [email or web address] 12-03-2023 05:10-0400 Body mass index (BMI) [Ratio] 32.03 kg/m2 Flip Hernandez MD Work Phone: [facility] [email or web address] 12-03-2023 05:10-0400 Body weight 76.89 kg Flip Hernandez MD Work Phone: [facility] 12-02-2023 03:27-0400 Body height 154.9 cm Flip Hernandez MD Work Phone: [facility] 02-26-2023 08:42-0400 Body temperature 97.6 [degF] PHYSICIAN NO [facility] 02-26-2023 08:42-0400 Diastolic blood pressure 90 mm[Hg] PHYSICIAN NO [facility] 02-26-2023 08:42-0400 Heart rate 89 /min PHYSICIAN NO [facility] 02-26-2023 08:42-0400 Respiratory rate 16 /min PHYSICIAN NO [facility] 02-26-2023 08:42-0400 SaO2% (BldA) [Mass fraction] 100 % PHYSICIAN NO [facility] 02-26-2023 08:42-0400 Systolic blood pressure 135 mm[Hg] PHYSICIAN NO [facility] 02-23-2023 09:26-0400 Body height 154.94 cm PHYSICIAN NO [facility] 02-23-2023 09:26-0400 Body weight 81.64 kg PHYSICIAN NO [facility] 10-07-2022 03:06-0400 Body weight 80.[address] RACHID GLEZ . [facility] Comment on above: Performed By: #### AFPMAT #### [facility] [address] [place] [address] Dr. Calin Marshall 07-17-2019 11:48-0500 BMI (Body Mass Index) 34.2 kg/m2 Vikas Garrido [facility] Work Phone: 07-17-2019 11:48-0500 Body Temperature 99.2 [degF] Vikas Garrido [facility] Work Phone: Comment on above: Method: Oral 07-17-2019 11:48-0500 Body weight 86.18 kg Vikas Garrido [facility] Work Phone: 07-17-2019 11:48-0500 BP Diastolic 92 mm[Hg] Vikas Jeremiah [facility] Work Phone: 07-17-2019 11:48-0500 BP Systolic 150 mm[Hg] Vikas Jeremiah [facility] Work Phone: 07-17-2019 11:48-0500 BSA (Body Surface Area) 1.88 m2 Vikas Jeremiah [facility] Work Phone: 07-17-2019 11:48-0500 Height 158.75 cm Vikas Jeremiah [facility] Work Phone: 07-17-2019 11:48-0500 0 1 Vikas Jeremiah [facility] Work Phone: Comment on above: Pain Scale 06-21-2019 11:01-0500 BMI (Body Mass Index) 32.94 kg/m2 Vikas Jeremiah [facility] Work Phone: 06-21-2019 11:01-0500 Body weight 83.01 kg Vikas Jeremiah [facility] Work Phone: 06-21-2019 11:01-0500 BP Diastolic 80 mm[Hg] Vikas Jeremiah [facility] Work Phone: Comment on above: Location: RUE; Position: Sitting 06-21-2019 11:01-0500 BP Systolic 138 mm[Hg] Vikas Jeremiah [facility] Work Phone: Comment on above: Location: [facility]; Position: Sitting 06-21-2019 11:01-0500 BSA (Body Surface Area) 1.85 m2 Vikas Jeremiah [facility] Work Phone: 06-21-2019 11:01-0500 Height 158.75 cm Vikas Jeremiah [facility] Work Phone: 06-21-2019 11:01-0500 0 1 Vikas Jeremiah [facility] Work Phone: Comment on above: Pain Scale Encounters Encounter Date Encounter Type Care Provider Facility Start: 02-02-2024 End: 02-02-2024 ambulatory RENTERIA AZIZ [facility] Start: 01-24-2024 Telephone encounter Shala evangelista MD Work Phone: General Surgery Comment on above: 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 Start: 01-15-2024 End: 01-15-2024 Subsequent hospital visit by physician Braden Hawk MD Work Phone: [facility] Comment on above: Calculus of bile aurelia t with acute and chronic cholangitis without obstruction Start: 01-08-2024 Telephone encounter Shala evangelista MD Work Phone: General Surgery Comment on above: Received Outside Med ical Records Start: 12-29-2023 Telephone encounter Shala evangelista MD Work Phone: General Surgery Comment on above: Received Outside Med ical Records New Patient; Care Co ordinator - Other Start: 12-22-2023 End: 12-22-2023 ambulatory [facility] Start: 12-22-2023 End: 12-22-2023 ambulatory [facility] Start: 12-13-2023 End: 12-14-2023 Evaluation and management of inpatient [facility] Start: 12-01-2023 End: 12-03-2023 Evaluation and management of inpatient Flip Hernandez MD Work Phone: [facility] Comment on above: Metabolic acidosis ( Primary Dx); Transaminitis; Hyperbilirubinemia Start: 11-30-2023 End: 11-30-2023 Evaluation and management of inpatient JUDI HUMPHREYS [facility] Start: 11-30-2023 End: 11-30-2023 Evaluation and management of inpatient [facility] Start: 11-29-2023 End: 11-29-[address] [facility] Start: 11-22-2023 End: 11-22-2023 ambulatory [facility] Start: 02-27-2023 End: 02-27-2023 ambulatory Celestina Ely Facility:[facility] Start: 02-27-2023 End: 02-27-2023 ambulatory PHYSICIAN JAMILA [facility] Work Phone: Start: 02-27-2023 End: 02-27-2023 Patient encounter procedure PHYSICIAN NO [facility]- Visit Work Phone: Start: 02-23-2023 End: 02-26-2023 Evaluation and management of inpatient Diana Nataprawira Facility:[facility] Start: 02-23-2023 End: 02-26-2023 Evaluation and management of inpatient PHYSICIAN JAMILA [facility] Work Phone: Start: 01-31-2023 End: 01-31-2023 ambulatory PHYSICIAN JAMILA VIVEROS Facility:[facility] Start: 01-31-2023 End: 01-31-2023 ambulatory DO Diana Nataprawira Work Phone: [facility] Work Phone: Start: 01-31-2023 End: 01-31-2023 Departed Referred DO Diana Nataprawira Work Phone: [facility] [place] Work Phone: Start: 10-19-2022 End: 10-20-[address] RACHID GLEZ . Facility: Start: 10-05-2022 End: 10-06-[address] RACHID GLEZ . Facility:[facility] Start: 09-07-2022 Encounter for gynecological examination (general) (routine) without abnormal findings DR RACHID GLEZ . [facility] Start: 09-05-2022 End: 09-05-[address] [...] Start: 07-17-2019 Patient encounter procedure Vikas Jeremiah [facility] Work Phone: Start: 06-21-2019 Patient encounter procedure Vikas Jeremiah [facility] Work Phone: Patient encounter status Mia Ambrose Elías [facility] Work Phone: Procedures Date Procedure Procedure Detail Performing Clinician Start: 01-15-2024 Fluoroscopy during operation Braden Hawk MD Work Phone: Start: 01-15-2024 Urine test visual color cmprsn meths Braden Hawk MD Work Phone: Start: 12-03-2023 Assay of phosphorus inorganic Gia Deutsch DIRECTOR OF INDUSTRIAL RELATIONS - FINISHING POWDER PRESS OPERATOR Work Phone: Start: 12-03-2023 COMPREHENSIVE METABO LIC W/ BILI PROFILE W/ REFLEX TO MG Braden Hawk MD Work Phone: Start: 05-25-2024 Fluoroscopy during operation Braden Hawk MD Work Phone: Start: 12-02-2023 Urinalysis microscop ic only Gia Deutsch DIRECTOR OF INDUSTRIAL RELATIONS - FINISHING POWDER PRESS OPERATOR Work Phone: Start: 12-02-2023 Urnls dip stick/tabl et rgnt auto w/o microscopy Gia Deutsch DIRECTOR OF INDUSTRIAL RELATIONS - FINISHING POWDER PRESS OPERATOR Work Phone: Start: 12-02-2023 CULTURE, BLOOD 1 Gia Deutsch DIRECTOR OF INDUSTRIAL RELATIONS - FINISHING POWDER PRESS OPERATOR Work Phone: Start: 12-02-2023 Assay of lipase Gia Bobo danni DIRECTOR OF INDUSTRIAL RELATIONS - FINISHING POWDER PRESS OPERATOR Work Phone: Start: 12-01-2023 Blood count complete automated Gia Deutsch DIRECTOR OF INDUSTRIAL RELATIONS - FINISHING POWDER PRESS OPERATOR Work Phone: Start: 12-01-2023 History of cholecystectomy S/P evelina cystectomy Flip Hernandez MD Work Phone: Start: 02-23-2023 Antibody screen PHYSICI AN NO FAMILY Comment on above: Result Comment: PERF ORMED BY: [facility] [address] [place] [address] PATHOLOGIST BOX CAR LOADER FLORY JAIN M.D. Start: 02-23-2023 Urine culture PHYSICIAN NO FAMILY Start: 01-31-2023 Group B Streptococcu s Culture PHYSICIAN NO FAMILY Start: 06-21-2019 Thromboplastin time partial plasma/whole blood Vikas Garrido Start: 06-21-2019 Follow-up visit Appendectomy Vikas Garrido Extraction of wisdom tooth R nic Garrido H/O: section S/P PHYSI LELE NO FAMILY Plan of Treatment Date Care Activity Detail Author Start: 02-24-2033 DTaP/Tdap/Td vaccine (2 - Td or Tdap) DTaP/Tdap/Td vaccine (2 - Td or Tdap) [facility] Start: 02-24-2033 Urine microalbumin profile DTaP,Tdap,Td Vaccine (2 - T d or Tdap) [facility] Start: 03-10-2024 Influenza vaccination [facility] Start: 02-08-2024 Influenza vaccination [facility] Start: 01-23-2024 End: 04-23-2024 CBC W Auto Differential panel - Blood COMPLETE BLOOD COUNT AND DIFFERENTIAL Lab Routine Chronic biliary pancreatitis (HCC) Expected: 01/23/2024, Expires: 04/23/2024 [facility] Work Phone: Comment on above: Expected: 01/23/2024, Expires: Start: 01-23-2024 End: 04-23-2024 Comprehensive metabolic 2000 panel - Serum or Plasma COMPREHENSIVE METABOLIC PANEL Lab Routine Chronic biliary pancreatitis (HCC) Expected: 01/23/2024, Expires: 04/23/2024 [facility] Comment on above: Expected: 01/23/2024, Expires: Start: 01-23-2024 End: 01-23-2024 Patient encounter procedure 01/23/2024 11:00 AM EDT Of paulino Porras General Surgery [id number] [facility] [address] [place] [address] [place] [address] [address] [facility] [address] [place] [address] New Consult Chronic Pancreatitis General Surgery Comment on above: New Consult Chronic Pancreatitis Start: 01-15-2024 End: 01-15-2024 Ercp dx collection specimen brushing/washing ENDOSCOPIC RETROGRADE CHOLANGIOPANCREATOGRAPHY Calculus of bile duct with acute and chronic cholangitis without obstruction 01/15/2024 2:10 PM EDT [facility] Start: 01-15-2024 End: 01-15-2024 Esophagogastroduodenoscopy transoral diagnostic ESOPHAGOGASTRODUODENOSCOPY Calculus of bile duct with acute and chronic cholangitis without obstruction 01/15/2024 2:10 PM EDT [facility] Start: 01-15-2024 End: 01-15-2024 Gi endoscopic us s&i ENDOSCOPIC ULTRASOUND Calcul us of bile duct with acute and chronic cholangitis without obstruction 01/15/2024 2:10 PM EDT [facility] Start: 12-11-2023 End: 03-04-2024 Comprehensive Metabolic Panel with Bilirubin Comprehensive Metabolic Panel with Bilirubin Lab Routine Metabolic acidosis Transaminitis Hyperbilirubinemia Expected: 12/11/2023, Expires: 03/04/2024 [facility] [email or web address] Comment on above: Expected: 12/11/2023, Expires: Start: 07-10-2023 Behavioral Health Screening Behavioral Health Screening [facility] Start: 2023 Screening for malignant neoplasm of cervix [facility] Start: 03-10-2023 Covid-19 Vaccine () Covid-19 Vaccine () [facility] Start: 02-26-2023 [facility] Start: 02-24-2023 Hospital admission [facility] Start: 01-31-2023 Following clinical pathway protocol [facility] Start: 01-31-2023 Group B Streptococcus Culture Group B Streptococcus Culture [facility] Start: 2014 Screening for malignant neoplasm of cervix [facility] Start: 2012 Hepatitis B Vaccine (1 of 3 - 19+ 3-dose series) Hepatitis B Vaccine (1 of 3 - 19+ 3-dose series) [facility] Start: 2011 Hepatitis C [facility] Start: 2011 HIV screening HIV Screening [facility] Start: 2008 HIV screening HIV screen [facility] [employer] Start: 2005 Depression Screen Depression Screen [facility] Start: 1999 Pneumococcal vaccination Pneumococcal Vaccine (1 of 2 - PCV) [facility] Start: 1994 Varicella vaccine (1 of 2 - 2-dose childhood series) Varicella vaccine (1 of 2 - 2-dose childhood series) [facility] Start: 1993 COVID-19 Vaccine (#1) COVID-19 Vaccine (#1) [facility] [email or web address] Start: 1993 Hepatitis B vaccine (1 of 3 - 3-dose series) Hepatitis B vaccine (1 of 3 - 3-dose series) [facility] [email or web address] End: 01-16-2024 Blood glucose - POCT Blood glucose - POCT Point o f Care Testing Routine One Time for 1 Occurrences starting 01/16/2024 until 01/16/2024 [facility] [email or web address] Comment on above: One Time for 1 Occurrences starting 03/2024 until 01/16/2024 End: 12-04-2023 CBC panel - Blood by Automated count CBC Lab Routine Daily for 2 Occurrences starting 12/03/2023 until 12/04/2023, 1 completed [employer] Comment on above: Daily for 2 Occurrences starting 024 until 12/04/2023, 1 completed End: 12-05-2023 Comprehensive Metabolic w/ Bili Profile w/ Reflex to MG Comprehensive Metabolic w/ Bili Profile w/ Reflex to MG Lab Routine Daily for 3 Days starting 12/03/2023 until 12/05/2023, 1 completed [employer] Comment on above: Daily for 3 Days starting 12/03/2023 unt il 12/05/2023, 1 completed Culture, Blood 1 Culture, Blood 1 Microbiology STAT 12/02/2023 8:52 AM EDT [employer] Glucose [Mass/volume ] in Serum or Plasma POCT Glucose Point of Care Testing STAT As Needed until discontinued starting 12/02/2023 [employer] Comment on above: As Needed until discontinued starting End: 01-15-2024 INITIATE PACU OXYGEN THERAPY PROTOCOL Initiate PACU Oxygen Therapy Protocol Respiratory Care Routine Continuous until discontinued starting 01/15/2024 [employer] Work Phone: Comment on above: Continuous until discontinued starting 0 01/15/2024 Intermittent pulse oximetry Puls e Oximetry Spot Check Respiratory Care Routine As Needed until discontinued starting 12/01/2023 [employer] Comment on above: As Needed until discontinued starting Oxygen therapy [Mini mum Data Set] Initiate Oxygen Therapy Protocol Respiratory Care Routine As Needed until discontinued starting 12/01/2023 [employer] Comment on above: As Needed until discontinued starting Oxygen therapy [Mini mum Data Set] Initiate Oxygen Therapy Protocol Respiratory Care Routine As Needed until discontinued starting 01/15/2024 [employer] Work Phone: Comment on above: As Needed until discontinued starting Patient Education Post- Fatimah Clark ([facility]) [facility] Work Phone: Patient referral [facility] Work Phone: End: 01-16-2024 , urine , urine Lab Routine Tomorrow AM for 1 Occurrences starting 01/16/2024 until 01/16/2024 [facility] [email or web address] Comment on above: Tomorrow AM for 1 Occurrences starting 0 01/16/2024 until 01/16/2024 Surgical Pathology Surgical Path ology Lab Routine Calculus of bile duct with acute and chronic cholangitis without obstruction Release Upon Ordering for 1 Occurrences starting 01/15/2024 [facility] Comment on above: Release Upon Ordering for 1 Occurrences starting 01/15/2024 Immunizations Immunization Date Immunization Notes Care Provider Fa cility 02-24-2023 tetanus toxoid, redu ramila diphtheria toxoid, and acellular pertussis vaccine, adsorbed PHYSICIAN NO [facility] 04-23-2019 influenza, injectabl e, quadrivalent, preservative free Shala Prince MD Work Phone: [facility] 04-23-2019 influenza virus vaccine, unspecified formulation Shala Prince MD Work Phone: [facility] Payers Date Payer Category Payer Unknown [employer] PPO [id number] 2023-Present [phone] [id number] [place] [address] PPO [id number] 2023 Unknown [id number] 1993 Unknown [id number] 2.840.1.017677.3.579.2.593 1993 Unknown [id number] 2.840.1.020428.3.579.2.593 1993 Unknown [id number] 2.840.1.926865.3.579.2.593 1993 Unknown [id number] 2.840.1.668470.3.579.2.593 1993 Unknown [id number] 2.16.840.1.360112.3.579.2.593 1993 Unknown [id number] 2.16.840.1.713038.3.579.2.593 1993 Unknown [id number] 2.16.840.1.629085.3.579.2.593 1993 Unknown [id number] 2.16.840.1.570481.3.579.2.593 1993 Unknown [id number] 2.16.840.1.168727.3.579.2.1286 1993 Unknown [id number] 2.16.840.1.314358.3.579.2.1286 1993 Unknown [id number] 2.16.840.1.601968.3.579.2.128 1993 Unknown [id number] 2.16.840.1.383093.3.579.2.128 1993 Unknown [id number] 2.16.840.1.659943.3.579.2.128 1993 Unknown [id number] 2.16.840.1.512111.3.579.2.1285 1993 Unknown [id number] 2.16.840.1.686596.3.579.2.128 1993 Unknown [id number] 2.16.840.1.127210.3.579.2.128 1993 Unknown [id number] 2.16.840.1.295318.3.579.2.128 1993 Unknown [id number] 2.16.840.1.088149.3.579.2.128 1993 Unknown [id number] 2.16.840.1.818118.3.579.2.177 1993 Unknown [id number] 2.16.840.1.717817.3.579.2.177 1993 Unknown [id number] 2.16.840.1.415173.3.579.2.175 1959 Self-pay 1959 Unknown [id number] 1959 Unknown [id number] Unknown [id number] 2..840.1.874123.3.579.2.593 Unknown HCAP/HFA/FAP Active [id number] Unknown [id number] 2.840.1.417504.3.579.2.531 Unknown [id number] 08.25.840.1.137857.3.579.2.531 Unknown [id number] 2.840.1.617862.3.579.2.531 Social History Date Type Detail Facility Start: 1995 Sex Assigned At Female F [facility] Start: 02-23-2023 End: 12-01-2023 Tobacco smoking status NHIS Never smoked tobacco (finding) [facility] Start: 12-01-2023 End: 01-23-2024 Tobacco use and exposure Smokeless tobacco non-user [employer] Start: 12-01-2023 End: 01-15-2024 Alcohol intake Ex-drinker (finding) [employer] Start: 12-01-2023 End: 12-26-2023 History of Social function [employer] Start: 12-01-2023 End: 12-26-2023 Tobacco use panel [facility] [email or web address] Physical abuse Denies [facility] Start: 1993 Sex Assigned At Not on file B [facility] [email or web address] Start: 01-26-2021 End: 01-23-2024 Tobacco smoking status NHIS Smokes tobacco daily [facility] Start: 01-26-2021 End: 01-23-2024 Tobacco Comment Smokes Marijuana* [facility] Has the electric, ga s, oil, or water company threatened to shut off services in your home in past 12Mo No [employer] (I/We) worried whejanuary er (my/our) food would run out before (I/we) got money to buy more. Never true [facility] [email or web address] At any time in the past 12 months, were you homeless or living in fpc [including now]? Yes [facility] NEGATED: Highlighted row - - [facility] Work Phone: Medical Equipment Procedure Code Equipment Code Equipment Origin al Text Equipment Identifier Dates Stent Bili L60mm Dia8mm Cath 8.5fr L194cm Gwire 0.035in Mtl - [id number] , [id number] FDA Start: 12-02-2023 Stent Bili L60mm Dia8mm Cath 8.5fr L194cm Gwire 0.035in Mtl - [id number] ()[id number] , [id number] FDA Start: 12-13-2023 Goals Date Patient Goal Desired Activity /State Functional Status Date Assessment Result Facility 02-26-2023 Functional status Patient at Baseline [facility] Work Phone: NEGATED: Highlighted row Functional performance Functional status health issues are not documented Disease [facility] Work Phone: Mental Status Date Assessment Result Facility 02-26-2023 Cognitive function Cognitive Sta tus Patient at Baseline [facility] Work Phone: NEGATED: Highlighted row Cognitive function [Interpretation] Cognitive status health issues are not documented Disease [facility] Work Phone: Clinical Notes 02-23-2023 to 01-23-2024 Chris Monterroso MA - 01/23/2024 11:15 AM Chris Durand MA - 01/23/2024 11:15 AM Shala Chawla MD - 01/23/2024 11:00 AM EDTDischarge InstructionsDischarge InstructionsAttachments Note Date & Type Note Facility 01-23-2024 Nurse Note What is the reason for your visit today? Consult Second opinion for chronic pancreatitis Who is your referring physician? Self Are you having poor oral intake? NO Have you had unintentional weight loss of 15 lbs/7 Kg in the last 3-6 months? YES Bowels: regular Wound: Temperature: No Drains: No [facility] 01-23-2024 Nurse Note What is the reason for your visit today? Consult Second opinion for chronic pancreatitis Who is your referring physician? Self Are you having poor oral intake? NO Have you had unintentional weight loss of 15 lbs/7 Kg in the last 3-6 months? YES Bowels: regular Wound: Temperature: No Drains: No documented in this encounter [facility] 01-23-2024 History of Presen t illness Narrative Images from the original note were not included. INITIAL PANCREATITIS PATIENT PATIENT NAME: Natalee Alcocer REASON FOR CONSULT: Chronic Biliary Pancreatitis Ascending Cholangitis REQUESTING PHYSICIAN: Self-Referred DATE of SERVICE: 01/22/2024 TIME of SERVICE: 3:11 PM PCP: Zeenat Herndon MD, MANAGER OF COMMUNITY RELATIONS HPI: Ms. Alcocer is a 28 year old healthy female s/p laparoscopic cholecystectomy who presents for a second opinion of her chronic pancreatitis. Natalee presented to the ED on 11/28 for symptoms of cholithiasis/acute cholecystitis which was treated with laparoscopic cholecystectomy on 11/29 and discharged home. On 11/30 she returned to the ED with jaundice, severe RUQ, N/V. ERCP done on 12/01 in which a sphincterotomy and stent placement were done. On 12/12 she presented to the ED again for ascending cholangitis secondary to stent obstruction. Stent was removed and replaced. Patients stent was removed 01/14. She presents today for a second opinion regarding her chronic pancreatitis. She currently is asymptomatic except for mild RUQ and epigastric tenderness. Patient does not complain of jaundice, loss of weight, loss of appetite, pale colored stools, generalized itching, abdominal pain, history of pancreatitis. Any alcohol use? no Previous alcohol use? no Binge alcohol use Current tobacco use? no Prior tobacco use? no Pack year smoking history? N/A Previous cholecystectomy and year? 12/01/2023 Gallstone at cholecystectomy? yes Gallbladder insitu with gallstones/sludge? yes Gallbladder insitu no gallstone/sludge?N/A First diagnoses of pancreatitis? 12/13/2023 Hospital, state? Medication induced pancreatitis? no Hypertriglyceridemia? no Family history of pancreatitis? no Family history of pancreatic cancer or hepatobiliary cancers? no Previous pancreatic stenting: no Previous pancreatic surgery:no Previous pancreatic biopsy: no MEDICATIONS: Morphine equivalents for narcotics: N/A Other pain medication use: N/A CURRENT KP TESTING RESULTS: N/A PAST MEDICAL HISTORY: No past medical history on file. PAST SURGICAL HISTORY: No past surgical history on file. FAMILY HISTORY: No family history on file. SOCIAL HISTORY: Social History Tobacco Use Smoking status: Every Day Smokeless tobacco: Never Tobacco comments: Smokes Marijuana* Substance Use Topics Drug use: Yes Types: Marijuana Review of Systems: PAIN ASSESSMENT: Negative for pain, history of chronic pain, or current treatment for a chronic pain condition. GENERAL: No weight loss, malaise or fevers., Negative for fatigue, malaise, weakness, fevers, chills, night sweats, and weight loss. RESPIRATORY: Negative for cough, hemoptysis, wheezing, COPD, dyspnea or shortness of breath CARDIOVASCULAR: Negative for chest pain, leg swelling, hypertension, CHF or palpitations, Negative for chest pain, leg swelling, CHF or palpitations GI: No nausea, vomiting, or diarrhea and No heartburn or reflux symptoms : No history of dysuria, frequency or incontinence MUSCULOSKELETAL: Negative for joint pain or swelling, back pain or muscle pain The remainder of the review of systems is negative. PHYSICAL EXAMINATION: BP 133/86 Pulse 70 Temp 36.3 C (97.4 F) (Temporal) Ht 154.9 cm (5' 0.98 ) Wt 71.2 kg (157 lb) SpO2 99% BMI 29.68 kg/m @BMI General appearance: Well appearing, alert, in no acute distress, well-hydrated, well nourished. Skin: Skin color, texture, turgor normal, no suspicious rashes or lesions Eyes: Anicteric sclera. Pupils are equally round and reactive to light. Extraocular movements are intact. Oropharynx: Lips, mucosa, and tongue normal, teeth and gums normal, oropharynx normal Lungs: Lungs clear to auscultation. No wheezing, rhonchi, rales. Heart: RRR without murmur, gallop, or rubs. No ectopy Abdomen: Normal abdominal exam, Abdomen soft, non-tender. Bowel sounds normal. No masses, organomegaly Labs IgG4: Genetic testing: Triglyceride: LFTs: Amylase: Lipase: Imaging 12/12/2023 CT A/P 11/08/2023 US RUQ [facility] Operative Report 11/30/2023 Dr. Betts 11/02/2023 CT A/P Procedures: 12/13/2023 ERCP/EUS Pancreatic duct dilation: no Pancreatic duct stones: no Parenchymal stones: no Pancreatic Atrophy: no Focal pancreatitis: no Location of focal pancreatitis: (Head, Body/tail, Groove) No abnormal pancreatic imaging findings on all imaging review: ASSESSMENT: Chronic pancreatitis Etiology Biliary ( Idiopathic, gallstones, alcohol induced, medication induced, genetic, hypertriglyceridemia, others) PLAN Natalee Alcocer is a very pleasant 28 year old female, primary care physician Zeenat Herndon MD, MANAGER OF COMMUNITY RELATIONS, who is self referred, present to clinic for a second opinion. The nature of chronic biliary pancreatitis was discussed with the patient, patient educated about current condition, and management is as discussed. A follow up full laboratory work-up will be ordered for her including: CBC, CMP, Pancreatic enzymes. An MRI liver will be ordered and followed up accordingly. This office note will be sent to the referring provider via electronic medical record and US mail. Shala Prince MD Natalee Alcocer is a very pleasant 28 year old female, primary care physician Zeenat Herndon MD, MANAGER OF COMMUNITY RELATIONS, self-referred to me for an opinion regarding chronic pancreatitis. Patient was recently treated at [facility] in [place] with a cholecystectomy. She presented after the cholecystectomy with a distal CBD stone. She underwent an ERCP and stent placement for it apparently presented with stent obstruction cholangitis. Somewhere along the way she had an endoscopic ultrasound that was performed with biopsies that noted moderate chronic pancreatitis. She subsequently had her stent changed to metal stent and now has been stent free for about 2 to 3 weeks. She does not have any abdominal symptoms and is doing quite well. She is not a diabetic and is not on any pancreatic enzymes. She has never used or abused alcohol in the past and she does not smoke. She is quite healthy at baseline. She is here because she is concerned of her diagnosis of chronic pancreatitis and wants to understand more of it. Rest of her history and exam is as above otherwise noncontributory. I have reviewed her imaging. The last time she got a CT scan, she did have a stent that appeared to be functioning. I reviewed the reports from her endoscopic ultrasound that notes moderate chronic pancreatitis. Patient with a diagnosis of moderate chronic pancreatitis based on endoscopic ultrasound without any obvious etiology. She is here for second opinion. I do not see any acute surgical issues at this point. I will have her last set of scans over read over here. I will refer to her her pancreatologist. I will also repeat her CBC and her CMP as her CMP was abnormal the last time it was checked. CBC and CMP Over read on last imaging Referred to pancreatologist Shala Prince MD Medical Decision Making: Problems: Moderate: New problem with uncertain prognosis Data: Unique test result(s) reviewed: 3+ Risk: High: Decision on elective major surgery w/ risk factors Medical Decision Making Level: 4 - Moderate documented in this encounter [facility] 01-23-2024 Note HNO ID: [id number] Author: SHALA PRINCE MD Service: ? Author Type: Physician Type: Progress Notes Filed: 01/23/2024 16:22 Note Text: INITIAL PANCREATITIS PATIENT PATIENT NAME: Natalee Alcocer REASON FOR CONSULT: Chronic Biliary Pancreatitis Ascending Cholangitis REQUESTING PHYSICIAN: Self-Referred DATE of SERVICE: 01/22/2024 TIME of SERVICE: 3:11 PM PCP: Zeenat Herndon MD, MANAGER OF COMMUNITY RELATIONS HPI: Ms. Alcocer is a 28 year old healthy female s/p laparoscopic cholecystectomy who presents for a second opinion of her chronic pancreatitis. Natalee presented to the ED on 11/28 for symptoms of cholithiasis/acute cholecystitis which was treated with laparoscopic cholecystectomy on 11/29 and discharged home. On 11/30 she returned to the ED with jaundice, severe RUQ, N/V. ERCP done on 12/01 in which a sphincterotomy and stent placement were done. On 12/12 she presented to the ED again for ascending cholangitis secondary to stent obstruction. Stent was removed and replaced. Patients stent was removed 01/14. She presents today for a second opinion regarding her chronic pancreatitis. She currently is asymptomatic except for mild RUQ and epigastric tenderness. Patient does not complain of jaundice, loss of weight, loss of appetite, pale colored stools, generalized itching, abdominal pain, history of pancreatitis. Any alcohol use? no Previous alcohol use? no Binge alcohol use Current tobacco use? no Prior tobacco use? no Pack year smoking history? N/A Previous cholecystectomy and year? 12/01/2023 Gallstone at cholecystectomy? yes Gallbladder insitu with gallstones/sludge? yes Gallbladder insitu no gallstone/sludge?N/A First diagnoses of pancreatitis? 12/13/2023 Hospital, state? Medication induced pancreatitis? no Hypertriglyceridemia? no Family history of pancreatitis? no Family history of pancreatic cancer or hepatobiliary cancers? no Previous pancreatic stenting: no Previous pancreatic surgery:no Previous pancreatic biopsy: no MEDICATIONS: Morphine equivalents for narcotics: N/A Other pain medication use: N/A CURRENT KP TESTING RESULTS: N/A PAST MEDICAL HISTORY: No past medical history on file. PAST SURGICAL HISTORY: No past surgical history on file. FAMILY HISTORY: No family history on file. SOCIAL HISTORY: Social History Tobacco Use Smoking status: Every Day Smokeless tobacco: Never Tobacco comments: Smokes Marijuana* Substance Use Topics Drug use: Yes Types: Marijuana Review of Systems: PAIN ASSESSMENT: Negative for pain, history of chronic pain, or current treatment for a chronic pain condition. GENERAL: No weight loss, malaise or fevers., Negative for fatigue, malaise, weakness, fevers, chills, night sweats, and weight loss. RESPIRATORY: Negative for cough, hemoptysis, wheezing, COPD, dyspnea or shortness of breath CARDIOVASCULAR: Negative for chest pain, leg swelling, hypertension, CHF or palpitations, Negative for chest pain, leg swelling, CHF or palpitations GI: No nausea, vomiting, or diarrhea and No heartburn or reflux symptoms : No history of dysuria, frequency or incontinence MUSCULOSKELETAL: Negative for joint pain or swelling, back pain or muscle pain The remainder of the review of systems is negative. PHYSICAL EXAMINATION: BP 133/86 Pulse 70 Temp 36.3 ?C (97.4 ?F) (Temporal) Ht 154.9 cm (5' 0.98 ) Wt 71.2 kg (157 lb) SpO2 99% BMI 29.68 kg/m? @BMI General appearance: Well appearing, alert, in no acute distress, well-hydrated, well nourished. Skin: Skin color, texture, turgor normal, no suspicious rashes or lesions Eyes: Anicteric sclera. Pupils are equally round and reactive to light. Extraocular movements are intact. Oropharynx: Lips, mucosa, and tongue normal, teeth and gums normal, oropharynx normal Lungs: Lungs clear to auscultation. No wheezing, rhonchi, rales. Heart: RRR without murmur, gallop, or rubs. No ectopy Abdomen: Normal abdominal exam, Abdomen soft, non-tender. Bowel sounds normal. No masses, organomegaly Labs IgG4: Genetic testing: Triglyceride: LFTs: Amylase: Lipase: Imaging 12/12/2023 CT A/P 11/08/2023 US RUQ [facility] Operative Report 11/30/2023 Dr. 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 The nature of chronic biliary pancreatitis was discussed with the patient, patient educated about current con (more content not included)... [facility] 01-15-2024 Hospital Discharg e instructions Braden Hawk MD - 01/15/2024 3:31 PM EDT [facility] POST-ENDOSCOPY INSTRUCTIONS 1. ACTIVITY No driving, operating machinery, or making important decisions for 24 hours. Resume normal activity after 24 hours. You may return to work after 24 hours. 2. DIET Low-fat diet 3. MEDICATIONS Resume your usual medications. Do not consume alcohol, tranquilizers, or sleeping medications for 24 hour unless advised by your physician. 4. PHYSICIAN FOLLOW-UP / INSTRUCTIONS Please call the office/clinic in 10 days for biopsy results: [ ] GI office: Follow up with your family physician as planned. 6. NORMAL CHANGES YOU MAY EXPERIENCE AFTER ENDOSCOPY: EGD/ERCP WITH CHOLANGIOSCOPY/EUS Sore throat after EGD/ERCP/EUS A bloated feeling and belching from air in stomach You may feel fatigued for the next 24-48 hours due to the prep and sedation 7. CALL YOUR PHYSICIAN IF YOU EXPERIENCE ANY OF THE FOLLOWING A. Passing blood rectally or vomiting blood (color may be red or black) B. Severe abdominal pain or tenderness (that is not relieved by passing air) C. Fever, chills, or excessive sweating D. Persistent nausea or vomiting E. Redness or swelling at the IV site If you have additional questions, PLEASE call your doctor or the [facility] GI [facility] ([phone]) documented in this encounter [facility] 01-08-2024 Telephone encounter Note Received Operative report from [facility]/ Dr. Betts dated 11/30/2023, please review. Thank you! [facility] 01-08-2024 Miscellaneous Notes Received Operative report from [facility]/ Dr. Betts dated 11/30/2023, please review. Thank you! documented in this encounter [facility] 12-29-2023 Telephone encounter Note Images from the original note were not included. Attached are Outside Records From [facility]: [facility] 12-29-2023 Miscellaneous Notes Images from the original note were not included. Attached are Outside Records From [facility]: documented in this encounter [facility] 12-29-2023 Telephone encounter Note Images from the original note were not included. Hepatobiliary Surgery Consult - 28 year old female with chronic biliary pancreatitis requesting second opinion - 11/30/2023 s/p lap evelina by Dr. Hui Betts at [facility] - 12/01/2023 Presented to [place] ER with intractable nausea/vomiting and abdominal pain; elevated liver enzymes and jaundice, slightly elevated WBC; transferred to [place] for concern of stone in CBD - 12/02/2023 ERCP for sphincterotomy, balloon sweep, stone and sludge removal, mid CBD stricture and stent placement - 12/13/2023 Presented to [place] ER for worsening RUQ/epigastric pain; elevated bilirubin and leukocytosis 30,000; transferred back to [place]; admitted for ascending cholangitis secondary to stent obstruction. - 12/13/2023 ERCP/EUS revealing distal biliary stricture and upstream CBD dilation. Patient's old biliary stent was removed and new 8 mm x 60 mm stent placed Received Records From: [facility]- [phone] -ER summary 12/01/23 and 12/13/2023 -11/02/23 CT A/p, 11/08/23 US RUQ, 12/12/23 CT A/P [facility] ph [phone] fx [phone] -Lap evelina operative note [facility] ph [phone] fx [phone] -12/12- Discharge Summary -12/02/23 ERCP, 12/13/23 ERCP/EUS Records Review Imagin12/12/2023 CT A/P 11/08/2023 US RUQ 11/02/2023 CT A/P Procedures: 12/13/2023 ERCP/EUS Pathology: Biospy Cytology [facility] 12-29-2023 Miscellaneous Notes Images from the original note were not included. Hepatobiliary Surgery Consult - 28 year old female with chronic biliary pancreatitis requesting second opinion - 11/30/2023 s/p lap evelina by Dr. Hui Betts at [facility] - 12/01/2023 Presented to [place] ER with intractable nausea/vomiting and abdominal pain; elevated liver enzymes and jaundice, slightly elevated WBC; transferred to [place] for concern of stone in CBD - 12/02/2023 ERCP for sphincterotomy, balloon sweep, stone and sludge removal, mid CBD stricture and stent placement - 12/13/2023 Presented to [place] ER for worsening RUQ/epigastric pain; elevated bilirubin and leukocytosis 30,000; transferred back to [place]; admitted for ascending cholangitis secondary to stent obstruction. - 12/13/2023 ERCP/EUS revealing distal biliary stricture and upstream CBD dilation. Patient's old biliary stent was removed and new 8 mm x 60 mm stent placed Received Records From: [facility]- ph [phone] -ER summary 12/01/23 and 12/13/2023 -11/02/23 CT A/p, 11/08/23 US RUQ, 12/12/23 CT A/P [facility] ph [phone] fx [phone] -Lap evelina operative note [facility] ph [phone] fx [phone] -12/12- Discharge Summary -12/02/23 ERCP, 12/13/23 ERCP/EUS Records Review Imagin12/12/2023 CT A/P 11/08/2023 US RUQ 11/02/2023 CT A/P Procedures: 12/13/2023 ERCP/EUS Pathology: Biospy Cytology documented in this encounter [facility] 12-03-2023 Hospital DischGia Hernadez APRN - NP - 12/03/2023 12:04 PM EDT Return to the hospital if increasing abdominal pain, fever > 101, nausea/ vomiting, yellowing of eyes or skin Follow up with gastroenterology in 2 weeks Obtain labs in 1 week Take medications as prescribed Follow up with family doctor within 1 week. The following attachments cannot be sent through Care Everywhere.sodium bicarbonate (Ethiopian)ciprofloxacin (oral) (Ethiopian)documented in this encounter [facility] 12-03-2023 History of Presen t illness Narrative Images from the original note were not included. [facility] Office: [phone] Darek Randall DO, Mike Carter DO, Kadeem Neumann DO, Maik Guaman DO, Flip Hernandez MD, Judy Campbell MD, Joey Rodriguez MD, Alia Head MD, Devyn Colorado MD, Hao Hoskins MD, Alexx Gimenez MD, Jaya Maldonado DO, Rickey Morrison MD, Drew Rosales MD, Hui Randall DO, Bertha Ann MD, Brian Garcia DO, Sandra Osorio MD, Millicent Badillo MD, Heidy Ball MD, Lillian Johnston MD, Matheus Edwards MD, Rashmi Burciaga MD, Mely Bennett MD, Trinity Doss MD, Milo Neal MD, Jacqueline Brenner MD, Rip Bonds DO, Reji Dejesus DO, Walter Jaramillo MD, Trevor Greene MD, Stacey Mckenzie CNP, Radha Prajapati CNP, Georges Nunez CNP, Elvia Johnson DNP, Gia Deutsch CNP, Ivanna Gallegos CNP, Piper Prater CNP, María Elena Guaman CNP, Suzanne Quevedo, EDWIGEC, EDWIGE DudleyC, Geovanna Burch, MANAGER OF COMMUNITY RELATIONS, Sarai Barahona, MANAGER OF COMMUNITY RELATIONS, Kalin Short, MANAGER OF COMMUNITY RELATIONS, Ashley Munoz, MANAGER OF COMMUNITY RELATIONS, Mar Roach, MANAGER OF COMMUNITY RELATIONS, Laya Badillo, CODE OFFICIAL, Kirstin Trinh, MANAGER OF COMMUNITY RELATIONS, Isabel Lopez CNP, Radha Cummins CNP [facility] IN-PATIENT SERVICE [facility] Progress Note 12/03/2023 10:09 AM Name: Natalee Alcocer Acct: [id number] Room: IP Day: 2 Admit Date: 12/01/2023 6:34 PM PCP: No primary care provider on file. Code Status: Full Code Subjective: C/C: right upper abdominal pain Interval History Status: improved. Patient resting in bed. Tolerated full liquid diet- requesting regular diet. She complains of right upper abdominal tenderness and right flank pain. No complaints of nausea/ vomiting, fever, chills, shortness of breath. No issues reported overnight per nursing. Brief History: Natalee Alcocer is a 28 y.o. female who presents with abdominal pain, nausea/ vomiting, icterus and is admitted to the hospital for the management of Transaminitis. She had a cholecystectomy yesterday at an outlying hospital. She went home and had nausea and vomiting along with upper abdominal pain that would not cease. She also noticed this morning that her sclera were turning yellow and her urine was very yellow in color. She says she has not been able to eat or drink anything for the last 5 days. She has a PMH of appy, , daily marijuana use, social ETOH use. She denies DM, no history of lung, liver, or heart disease. No complaints of fever. She was initially evaluated in the ED at [facility]. Her wBC was 19.4 and she was given IV Zosyn. She was afebrile. Her liver enzymes were also elevated- AST 198, ALT 522, alk phos 260. Bilirubin was also elevated at 7.6, direct bilirubin 4.6. since no GI services are available at [place], patient requested to be transferred to [facility]. Dr Dolan the ED provider spoke with [facility] GI director of rehabilitation and discovered ERCP services are not available this weekend, so spoke with Dr Locke from who agreed to see the patient on consult at [facility] for ERCP as the patient's surgeon Dr Betts suspects she has a stone in the CBD. She was transferred to [facility] for further management of transaminitis, hyperbilirubinemia, and GI evaluation. Patient had low-grade temp day of admission. IV Zosyn continued. After IV fluids and improved control of vomiting bilirubin and AST/ALT have improved, however alk phos was worse. Total bilirubin has also improved. Bicarb drip infusing for metabolic acidosis. She underwent ERCP December 01 and a sphincterotomy, balloon sweep, stone and sludge removal, mid CBD stricture and stent placement. Her abdominal pain and nausea/ vomiting improved and she was able to tolerate a PO diet. Plan for discharge today. Review of Systems: Review of Systems Constitutional: Negative. HENT: Negative. Eyes: Negative. Respiratory: Negative. Cardiovascular: Negative. Gastrointestinal: Positive for abdominal pain. Negative for constipation, diarrhea, nausea and vomiting. Genitourinary: Negative. Musculoskeletal: Negative. Skin: Negative. Neurological: Negative. Psychiatric/Behavioral: Negative. Medications: Allergies: Allergies Allergen Reactions Amoxicillin Hives Current Meds: Scheduled Meds: sodium phosphate IVPB (PERIPHERAL line) 20 mmol IntraVENous Once indomethacin 100 mg Rectal Once sodium chloride flush 5-40 mL IntraVENous 2 times per day piperacillin-tazobactam 3,375 mg IntraVENous Q8H famotidine (PEPCID) injection 20 mg IntraVENous BID Continuous Infusions: dextrose sodium bicarbonate 150 mEq in dextrose 5 % 1,000 mL infusion 50 mL/hr at 12/02/23 1147 sodium chloride Stopped (12/03/23 0511) PRN Meds: glucose, dextrose bolus OR dextrose bolus, glucagon (rDNA), dextrose, sodium chloride flush, sodium chloride, potassium chloride OR potassium alternative oral replacement OR potassium chloride, magnesium sulfate, ondansetron OR ondansetron, polyethylene glycol, HYDROmorphone, prochlorperazine, diphenhydrAMINE Data: Past Medical History: has a past medical history of Marijuana use. Social History: reports that she has never smoked. She has never used smokeless tobacco. She reports that she does not currently use alcohol. She reports current drug use. Drug: Marijuana ([place]). Family History: Family History Problem Relation Age of Onset Diabetes Mother Hypertension Mother No Known Problems Father Vitals: BP (!) 143/94 Pulse 78 Temp 98.1 F (36.7 C) (Oral) Resp 16 Ht 1.549 m (5' 1 ) Wt 76.9 kg (169 lb 8 oz) LMP 11/14/2023 SpO2 98% BMI 32.03 kg/m Temp (24hrs), Av.8 F (36.6 C), Min:97.2 F (36.2 C), Max:98.2 F (36.8 C) No results for input(s): POCGLU in the last 72 hours. I/O (24Hr): Intake/Output Summary (Last 24 hours) at 12/03/2023 1009 Last data filed at 12/03/2023 0836 Gross per 24 hour Intake 592.38 ml Output 1850 ml Net -1257.62 ml Labs: Hematology: Recent Labs 12/01/23201912/02/2352412/03/23520 WBC 14.2* 13.4* 11.4* RBC 4.60 4.42 4.37 HGB 13.7 13.1 12.9 HCT 42.9 40.4 40.1 MCV 93.3 91.4 91.8 MCH 29.8 29.6 29.5 MCHC 31.9 32.4 32.2 RDW 13.3 13.5 13.3 PLT 323 352 375 MPV 9.6 9.7 9.7 INR -- 1.1 -- Chemistry: Recent Labs 12/02/2352412/03/23 05 NA 134* 134* K 4.3 4.1 CL 103 103 CO2 12* 17* GLUCOSE 65* 98 BUN 6 7 CREATININE 0.6 0.6 MG 1.9 -- ANIONGAP 19* 14 LABGLOM >90 >90 CALCIUM 9.2 9.5 PHOS 1.5* 2.0* Recent Labs 12/02/2352412/03/23 0521 AST 108* 120* ALT 352* 370* ALKPHOS 269* 296* BILITOT 5.9* 3.0* BILIDIR -- 1.9* LIPASE 49 -- Lab Results Component Value Date/Time SPECIAL LAC 10ML 12/02/2023 08:52 AM SPECIAL LAC 10ML 12/02/2023 08:52 AM Lab Results Component Value Date/Time CULTURE NO GROWTH 12 HOURS 12/02/2023 08:52 AM CULTURE NO GROWTH 12 HOURS 12/02/2023 08:52 AM Radiology: No results found. Physical Examination: Physical Exam Vitals and nursing note reviewed. Constitutional: General: She is not in acute distress. Appearance: She is ill-appearing. She is not toxic-appearing or diaphoretic. HENT: Head: Normocephalic and atraumatic. Right Ear: External ear normal. Left Ear: External ear normal. Nose: Nose normal. No rhinorrhea. Mouth/Throat: Mouth: Mucous membranes are moist. Eyes: General: No scleral icterus. Right eye: No discharge. Left eye: No discharge. Extraocular Movements: Extraocular movements intact. Conjunctiva/sclera: Conjunctivae normal. Pupils: Pupils are equal, round, and reactive to light. Cardiovascular: Rate and Rhythm: Normal rate and regular rhythm. Pulses: Normal pulses. Heart sounds: Normal heart sounds. No murmur heard. No friction rub. No gallop. Pulmonary: Effort: Pulmonary effort is normal. No respiratory distress. Breath sounds: Normal breath sounds. No wheezing, rhonchi or rales. Abdominal: General: Bowel sounds are normal. There is no distension. Palpations: Abdomen is soft. Tenderness: There is abdominal tenderness. There is right CVA tenderness. There is no guarding. Hernia: No hernia is present. Musculoskeletal: General: Normal range of motion. Cervical back: Normal range of motion and neck supple. Right lower leg: No edema. Left lower leg: No edema. Skin: General: Skin is warm and dry. Coloration: Skin is jaundiced. Findings: No bruising, erythema or lesion. Neurological: General: No focal deficit present. Mental Status: She is alert and oriented to person, place, and time. Psychiatric: Mood and Affect: Mood normal. Behavior: Behavior normal. Thought Content: Thought content normal. Judgment: Judgment normal. Assessment: Hospital Problems Last Modified POA * (Principal) Transaminitis 12/01/2023 Yes Intractable nausea 12/01/2023 Yes Hyperbilirubinemia 12/01/2023 Yes Jaundice 12/01/2023 Yes Intractable upper abdominal pain 12/01/2023 Yes S/P cholecystectomy 12/01/2023 Yes Metabolic acidosis 12/02/2023 Yes Hypophosphatemia 12/02/2023 Yes Plan: Transaminitis: PRACTICE BILLING ASSOCIATE completed and CBD stent placed. Advance diet as per GI recommendations. Continue to trend liver enzymes. Avoid hepatotoxic agents. Repeat ERCP in 2 weeks for removal of metal stent and evaluation of the distal biliary stricture. Intractable nausea: Resolved Hyperbilirubinemia: See #1. Labs reviewed. Jaundice: See #1. Improving Intractable abdominal pain: Abdominal pain controlled S/p choley: Pain control, trend wBC, IV Zosyn. Monitor for fever. EPC cuffs for DVT prophylaxis Metabolic acidosis. Labs reviewed. Bicarb drip as ordered. Hypophosphatemia: Sodium Phos IV x 1. Encourage PO intake. Plan for discharge this afternoon if continues to tolerate diet and abdominal discomfort controlled. JOVAN Dos Santos NP 12/03/2023 10:09 AM PATIENT NAME: Natalee Alcocer DATE OF : 1995 ADMISSION DATE: 12/01/2023 6:34 PM TODAY'S DATE: 12/03/2023 RAJAN: Patient with no complaints. Denies any nausea vomiting abdominal pain. Tolerating food. Objective: Vitals: BP (!) 143/94 Pulse 78 Temp 98.1 F (36.7 C) (Oral) Resp 16 Ht 1.549 m (5' 1 ) Wt 76.9 kg (169 lb 8 oz) LMP 11/14/2023 SpO2 98% BMI 32.03 kg/m Temp (24hrs), Av.8 F (36.6 C), Min:97.2 F (36.2 C), Max:98.2 F (36.8 C) EXAM: General: Alert, Appropriate. Not in acute distress. LUNGS: Resp unlabored; Clear to auscultation CV: Normal heart Sounds, No murmurs. ABD: Soft, non tender, Good bowel sounds EXT x 4: without edema Skin:No skin rash/ lesions. Data Review: CBC: Recent Labs 12/01/23201912/02/2352412/03/23520 WBC 14.2* 13.4* 11.4* HGB 13.7 13.1 12.9 PLT 323 352 375 BMP: Recent Labs 12/02/2352412/03/23520 NA 134* 134* K 4.3 4.1 CL 103 103 CO2 12* 17* BUN 6 7 CREATININE 0.6 0.6 GLUCOSE 65* 98 Hepatic: Latest Reference Range & Units Most Recent 12/02/23 05:25 12/03/23 05:21 Albumin 3.5 - 5.2 g/dL 3.9 12/03/23 05:21 4.1 3.9 Alkaline Phosphatase 35 - 104 U/L 296 (H) 12/03/23 05:21 269 (H) 296 (H) ALT 5 - 33 U/L 370 (H) 12/03/23 05:21 352 (H) 370 (H) AST <32 U/L 120 (H) 12/03/23 05:21 108 (H) 120 (H) Total Bilirubin 0.3 - 1.2 mg/dL 3.0 (H) 12/03/23 05:21 5.9 (H) 3.0 (H) Bilirubin, Direct <0.3 mg/dL 1.9 (H) 12/03/23 05:21 1.9 (H) Bilirubin, Indirect 0.0 - 1.0 mg/dL 1.1 (H) 12/03/23 05:21 1.1 (H) Lipase 13 - 60 U/L 49 12/02/23 05:25 49 (H): Data is abnormally high ACTIVE MEDICATIONS indomethacin 100 mg Rectal Once sodium chloride flush 5-40 mL IntraVENous 2 times per day piperacillin-tazobactam 3,375 mg IntraVENous Q8H famotidine (PEPCID) injection 20 mg IntraVENous BID Active Problems: Patient Active Problem List: Transaminitis Intractable nausea Hyperbilirubinemia Jaundice Intractable upper abdominal pain S/P cholecystectomy Metabolic acidosis Hypophosphatemia GI Assessment : Impression: Patient status post ERCP yesterday. ERCP showed distal biliary stricture status post metal biliary stent placement. Sludge and stone also removed. Unclear etiology of the distal biliary stricture. Differential includes inflammation due to recently passed CBD stones/PSC/malignancy less likely Recommendation: LFT trends trending down. Okay to advance diet. Plan is to repeat EUS/ERCP with a stent exchange in 2 weeks. Plan was explained to the patient and the and all questions answered. Okay to discharge from GI standpoint. Braden Hawk MD, MD Gastroenterology The pt was returned back to her room in stable condition. The pt was taken off the unit per cart for a procedure in stable condition Images from the original note were not included. [facility] Office: [phone] Darek Randall DO, Mike Carter DO, Kadeem Neumann DO, Maik Guaman DO, Flip Hernandez MD, Judy Campbell MD, Joey Rodriguez MD, Alia Head MD, Devyn Colorado MD, Hao Hoskins MD, Alexx Gimenez MD, Jaya Maldonado DO, Rickey Morrison MD, Drew Rosales MD, Hui Randall DO, Bertha Ann MD, Brian Garcia DO, Sandra Osorio MD, Millicent Badillo MD, Heidy Ball MD, Lillian Johnston MD, Matheus Edwards MD, Rashmi Burciaga MD, Mely Bennett MD, Trinity Doss MD, Milo Neal MD, Jacqueline Brenner MD, Rip Bonds DO, Reji Dejesus DO, Walter Jaramillo MD, Trevor Greene MD, Stacey Mckenzie CNP, Radha Prajapati CNP, Georges Nunez CNP, lEvia Johnson DNP, Gia Deutsch CNP, Ivanna Gallegos CNP, Piper Prater CNP, María Elena Guaman, JEFF, Suzanne Quevedo, PAAlishaC, Bonny Rogers, PAAlishaC, Geovanna Burch CNP, Sarai Barahona, JEFF, Kalin Short, JEFF, Ashley Munoz CNP, Mar Roach, MANAGER OF COMMUNITY RELATIONS, Laya Badillo, CODE OFFICIAL, Kirstin Trinh, MANAGER OF COMMUNITY RELATIONS, Isabel Lopez, MANAGER OF COMMUNITY RELATIONS, Radha Cummins, MANAGER OF COMMUNITY RELATIONS [facility] IN-PATIENT SERVICE [facility] Progress Note 12/02/2023 8:36 AM Name: Natalee Alcocer Acct: [id number] Room: Day: 1 Admit Date: 12/01/2023 6:34 PM PCP: No primary care provider on file. Code Status: Full Code Subjective: C/C: Abdominal pain, nausea Interval History Status: not changed. Patient resting in bed. She complains of feeling hot, nauseous. No vomiting overnight. Abdominal discomfort continues. She denies chest pain, shortness of breath, fever, headache, dizziness. She remains NPO. She is using ice pack on her abdomen for additional comfort. She had a low-grade temp overnight. IV hydration and IV Zosyn continues. Brief History: Natalee Alcocer is a 28 y.o. female who presents with abdominal pain, nausea/ vomiting, icterus and is admitted to the hospital for the management of Transaminitis. She had a cholecystectomy yesterday at an outlying hospital. She went home and had nausea and vomiting along with upper abdominal pain that would not cease. She also noticed this morning that her sclera were turning yellow and her urine was very yellow in color. She says she has not been able to eat or drink anything for the last 5 days. She has a PMH of appy, , daily marijuana use, social ETOH use. She denies DM, no history of lung, liver, or heart disease. No complaints of fever. She was initially evaluated in the ED at [facility]. Her wBC was 19.4 and she was given IV Zosyn. She was afebrile. Her liver enzymes were also elevated- AST 198, ALT 522, alk phos 260. Bilirubin was also elevated at 7.6, direct bilirubin 4.6. since no GI services are available at [place], patient requested to be transferred to [facility]. Dr Dolan the ED provider spoke with [facility] GI director of rehabilitation and discovered ERCP services are not available this weekend, so spoke with Dr Locke from who agreed to see the patient on consult at [facility] for ERCP as the patient's surgeon Dr Betts suspects she has a stone in the CBD. She was transferred to [facility] for further management of transaminitis, hyperbilirubinemia, and GI evaluation. Patient had low-grade temp day of admission. IV Zosyn continued. After IV fluids and improved control of vomiting bilirubin and AST/ALT have improved, however alk phos is worse. Total bilirubin has also improved. Bicarb drip started for metabolic acidosis. Patient to have ERCP today due to concern for cholangitis. Review of Systems: Review of Systems Constitutional: Positive for diaphoresis. Negative for chills, fatigue and fever. HENT: Negative. Eyes: Negative. Respiratory: Negative. Cardiovascular: Negative. Gastrointestinal: Positive for abdominal pain and nausea. Negative for constipation, diarrhea and vomiting. Genitourinary: Negative. Musculoskeletal: Negative. Skin: Negative. Neurological: Negative. Psychiatric/Behavioral: Negative. Medications: Allergies: Allergies Allergen Reactions Amoxicillin Hives Current Meds: Scheduled Meds: sodium phosphate IVPB (PERIPHERAL line) 20 mmol IntraVENous Once sodium chloride flush 5-40 mL IntraVENous 2 times per day piperacillin-tazobactam 3,375 mg IntraVENous Q8H famotidine (PEPCID) injection 20 mg IntraVENous BID Continuous Infusions: dextrose sodium bicarbonate 150 mEq in dextrose 5 % 1,000 mL infusion sodium chloride sodium chloride 125 mL/hr at 12/02/23 0522 PRN Meds: glucose, dextrose bolus OR dextrose bolus, glucagon (rDNA), dextrose, sodium chloride flush, sodium chloride, potassium chloride OR potassium alternative oral replacement OR potassium chloride, magnesium sulfate, ondansetron OR ondansetron, polyethylene glycol, HYDROmorphone, prochlorperazine, diphenhydrAMINE Data: Past Medical History: has a past medical history of Marijuana use. Social History: reports that she has never smoked. She has never used smokeless tobacco. She reports that she does not currently use alcohol. She reports current drug use. Drug: Marijuana ([place]). Family History: Family History Problem Relation Age of Onset Diabetes Mother Hypertension Mother No Known Problems Father Vitals: BP (!) 141/96 Pulse 87 Temp 98.4 F (36.9 C) (Oral) Resp 16 Ht 1.549 m (5' 1 ) Wt 77.4 kg (170 lb 9.6 oz) LMP 11/14/2023 SpO2 98% BMI 32.23 kg/m Temp (24hrs), Av.9 F (37.2 C), Min:98.1 F (36.7 C), Max:100.8 F (38.2 C) No results for input(s): POCGLU in the last 72 hours. I/O (24Hr): Intake/Output Summary (Last 24 hours) at 12/02/2023 0836 Last data filed at 12/02/2023 0522 Gross per 24 hour Intake 1369.64 ml Output -- Net 1369.64 ml Labs: Hematology: Recent Labs 12/01/23 2020 12/02/23 0525 WBC 14.2* 13.4* RBC 4.60 4.42 HGB 13.7 13.1 HCT 42.9 40.4 MCV 93.3 91.4 MCH 29.8 29.6 MCHC 31.9 32.4 RDW 13.3 13.5 PLT 323 352 MPV 9.6 9.7 INR -- 1.1 Chemistry: Recent Labs 12/02/23 0525 NA 134* K 4.3 CL 103 CO2 12* GLUCOSE 65* BUN 6 CREATININE 0.6 MG 1.9 ANIONGAP 19* LABGLOM >90 CALCIUM 9.2 PHOS 1.5* Recent Labs 12/02/23 0525 AST 108* ALT 352* ALKPHOS 269* BILITOT 5.9* LIPASE 49 Radiology: No results found. Physical Examination: Physical Exam Vitals and nursing note reviewed. Constitutional: General: She is not in acute distress. Appearance: She is ill-appearing and toxic-appearing. She is not diaphoretic. HENT: Head: Normocephalic and atraumatic. Right Ear: External ear normal. Left Ear: External ear normal. Nose: Nose normal. Mouth/Throat: Mouth: Mucous membranes are moist. Eyes: General: No scleral icterus. Right eye: No discharge. Left eye: No discharge. Extraocular Movements: Extraocular movements intact. Conjunctiva/sclera: Conjunctivae normal. Pupils: Pupils are equal, round, and reactive to light. Cardiovascular: Rate and Rhythm: Normal rate and regular rhythm. Pulses: Normal pulses. Heart sounds: Normal heart sounds. No murmur heard. No friction rub. No gallop. Pulmonary: Effort: Pulmonary effort is normal. No respiratory distress. Breath sounds: Normal breath sounds. No wheezing, rhonchi or rales. Abdominal: General: There is no distension. Palpations: Abdomen is soft. Tenderness: There is abdominal tenderness. There is guarding. Hernia: No hernia is present. Comments: Very hypoactive bowel sounds Musculoskeletal: General: Normal range of motion. Cervical back: Normal range of motion and neck supple. Right lower leg: No edema. Left lower leg: No edema. Skin: General: Skin is warm. Coloration: Skin is jaundiced. Findings: No bruising, erythema or lesion. Neurological: General: No focal deficit present. Mental Status: She is alert and oriented to person, place, and time. Psychiatric: Mood and Affect: Mood normal. Behavior: Behavior normal. Thought Content: Thought content normal. Judgment: Judgment normal. Assessment: Hospital Problems Last Modified POA * (Principal) Transaminitis 12/01/2023 Yes Intractable nausea 12/01/2023 Yes Hyperbilirubinemia 12/01/2023 Yes Jaundice 12/01/2023 Yes Intractable upper abdominal pain 12/01/2023 Yes S/P cholecystectomy 12/01/2023 Yes Metabolic acidosis 12/02/2023 Yes Hypophosphatemia 12/02/2023 Yes Plan: Transaminitis: Plan for ERCP today. NPO. Liver enzymes trending down except alk phos is worse. Continue to trend liver enzymes. Avoid hepatotoxic agents. IV hydration Intractable nausea: Zofran as needed. Compazine if zofran ineffective. IV hydration. Labs as ordered. Pepcid IV BID Hyperbilirubinemia: See #1. Improving Jaundice: See #1. Improving Intractable abdominal pain: GI consult. IV hydration. IV dilaudid as needed. S/p choley: Pain control, trend wBC, IV Zosyn. Check procalcitonin, check UA. Monitor for fever. EPC cuffs for DVT prophylaxis Metabolic acidosis. Labs reviewed. Bicarb drip as ordered. Hypophosphatemia: Sodium Phos IV x 1. Check Phos in a.m. JOVAN Dos Santos NP 12/02/2023 8:36 AM Jodi Prater NP notified of patient's temperature of 100.8 F. FINISHING POWDER PRESS OPERATOR stated to continue to monitor temp for now. No new orders received. Patient arrived via EMS transport from [facility]. Patient oriented to room, orders released and reviewed. Patient resting in bed with call light in reach, side rails up x2, bed alarm on. 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 Progress Note Signed Patient: Natalee Alcocer MR#: [id number] : 1995 Acct:[id number] Age/Sex: 27 / F Adm Date: 3 Loc: Room: [address] [place] [address] Type: ADM IN Attending Dr: Diana Sorenson [...] % (Auto) 78.0, Lymph % (Auto) 14.7, Childress % (Auto) 6.6, Eos % (Auto) 0.3, Baso % (Auto) 0.4, Nucleat RBC Rel Count 0.0, Neut# (Auto) 12.2 H, Lymph # (Auto) 2.3, Childress # (Auto) 1.0 H, Eos # (Auto) [...] signed by Mitra Degroot DO> 02/26/23 0901 [facility] Work Phone: [phone]) 702-193108-19-2023 Progress note Author Mitra Degroot [facility] February 25, 2023 9:32am Note Date/Time February 25, 2023 9: 32am [facility] [address] [place] [address] [employer]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 [employer]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 Progress Note Signed Patient: Natalee Alcocer MR#: [id number] : 1995 Acct:[id number] Age/Sex: 27 / F Adm Date: 3 Loc: Room: [address] [place] [address] Type: ADM IN Attending Dr: Diana Sorenson [...] % (Auto) 77.7, Lymph % (Auto) 15.8, Childress % (Auto) 6.3, Eos % (Auto) 0.0, Baso % (Auto) 0.2, Nucleat RBC Rel Count 0.0, Neut# (Auto) 15.1 H, Lymph # (Auto) 3.1, Childress # (Auto) 1.2 H, Eos # (Auto) [...] signed by Mitra Degroot DO> 02/25/23 0932 [facility] Work Phone: 1(287) 288-765508-18-2023 Progress note Author -GURVINDER Kendall [facility] February 24, 2023 11:53am Note Date/Time February 24, 2023 11 :53am [facility] [address] [place] [id number] 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 Progress Note Signed Patient: Natalee Alcocer MR#: [id number] : 1995 Acct:[id number] Age/Sex: 27 / F Adm Date: 3 Loc: 3S Room: [address] [place] [address] Type: ADM IN Attending Dr: Diana Sorenson [...] % (Auto) 70.6, Lymph % (Auto) 23.1, Childress % (Auto) 5.5, Eos % (Auto) 0.4, Baso % (Auto) 0.4, Nucleat RBC Rel Count 0.0, Neut# (Auto) 9.0 H, Lymph # (Auto) 2.9, Childress # (Auto) 0.7, Eos # (Auto) 0.0, Baso # (Auto) 0.0 02/23/23 09:48: RPR w/Rflx to Titer Non reactive 02/23/23 09:34: Urine Opiates Screen Negative, Ur Barbiturates Screen Negative, Ur Phencyclidine Scrn Negative, Ur Amphetamines Screen Negative, U Benzodiazepines Scrn Negative, Urine Cocaine Screen Negative 02/23/23 09:34: Urine Color Yellow, Urine Appearance Cloudy A, Urine pH 7.0, Ur Specific [place] 1.016, Urine Protein 30 H, Urine Glucose [...] <Electronically signed by CHRISTIANO Kendall> 02/24/23 1153 [facility] Work Phone: [phone]) 954-156308-17-2023 [facility] noteNo assessment information available[facility] Work Phone: evaluation note* Diagnosis Onset Date Resolution Status delivery delivered acute [facility] Work Phone: [email or web address] note* Diagnosis Transaminitis- Primary Nonspecific elevation of levels of transaminase or lactic acid dehydrogenase (LDH) Metabolic acidosis Acidosis Transaminitis Nonspecific elevation of levels of transaminase or lactic acid dehydrogenase (LDH) Hyperbilirubinemia Disorders of bilirubin excretion Intractable nausea Hyperbilirubinemia Disorders of bilirubin excretion Jaundice Jaundice, unspecified, not of Intractable upper abdominal pain S/P cholecystectomy Other acquired absence of organ Metabolic acidosis Acidosis Hypophosphatemia Disorders of phosphorus metabolism documented in this encounter [facility] note* Diagnosis Chronic biliary pancreatitis (HCC)- Primary documented in this encounter [facility] note* Diagnosis Calculus of bile duct with acute and chronic cholangitis without obstruction Calculus of bile duct without mention of cholecystitis or obstruction Chronic pancreatitis (HCC) Chronic pancreatitis documented in this encounter [facility] note* Diagnosis Chronic biliary pancreatitis (HCC)- Primary documented in this encounter [facility]* Name Dates Details Instructions not documented [facility] Work Phone: Summary Purpose Family History No [...] Advance Directives No March 08, 2021 8:48am Latest Code Status on File Code Status Date Activated Date Inactivated Comments Full Code 12/01/2023 6:37 PM Latest Code Status on File Code Status Date Activated Date Inactivated Comments Full Code 12/13/2023 2:34 AM 12/14/2023 5:54 PM Code Status History Code Status Date Activated Date Inactivated Comments Full Code 12/01/2023 6:37 PM 12/03/2023 6:57 PM Procedure Findings Note Post Operative Note: PreOp D iagnosis: mass of RIGHT neck and chest Post- Procedure Diagnosis: same Procedure: 1.excision mass of RIGHT neck and chest 2. 3. 4. 5. Surgeon: Vikas Garrido MD Resident/Fellow/Other Brusher Machine: trav Estimated Blood Loss (mL): minimal Specimen: [...] section and content) DATE CREATED AUTHOR 07/02/2019 [facility] DATE CREATED AUTHOR AUTHOR'S ORGANIZ ATION 07/17/2019 [facility] DATE CREATED AUTHOR AUTHOR'S ORGANIZ ATION 06/16/2020 [facility] DATE CREATED AUTHOR AUTHOR'S ORGANIZ ATION 08/10/2021 [facility] Special[facility] DATE CREATED AUTHOR AUTHOR'S ORGANIZ ATION 10/24/2022 [facility] DATE CREATED AUTHOR AUTHOR'S ORGANIZ ATION 03/07/2023 [facility] DATE CREATED AUTHOR AUTHOR'S ORGANIZ ATION 12/09/2023 [facility] DATE CREATED AUTHOR AUTHOR'S ORGANIZ ATION 12/23/2023 [facility] DATE CREATED AUTHOR AUTHOR'S ORGANIZ ATION 12/24/2023 [facility] DATE CREATED AUTHOR AUTHOR'S ORGANIZ ATION 01/22/2024 [facility] DATE CREATED AUTHOR AUTHOR'S ORGANIZ ATION 01/27/2024 [facility] DATE CREATED AUTHOR AUTHOR'S ORGANIZ ATION 02/04/2024 [facility] Care Teams (unrecognized sec tion and content) Team Status: Inactive Member Role Status Dates Diana Sorenson DO Attending Provider Active Team Status: Active Member Role Status Dates Celestina Ely , FINISHING POWDER PRESS OPERATOR-C Primary Care Provider Active Team Status: Inactive Member Role Status Dates Diana Sorenson , Attending Provider Active PHYSICIAN NO FAMILY Primary Care Provider Active Team Status: Inactive Member Role Status Dates Diana Sorenson , Admit Provider, Attending Provid er Active Celestina Ely , FINISHING POWDER PRESS OPERATOR-C Primary Care Provider Active Team Status: Inactive Member Role Status Dates Celestina Ely , FINISHING POWDER PRESS OPERATOR-C Primary Care Provider Active Lilia Huber MD Attending Provider Active Equal Employment Opportunity Officer Relationship Specialty Start Date End Date Zeenat Herndon CNP [address] [place] [address] PCP - General Family Medicine 08/28/19 Annamarie Ochoa APRN [address] [place] [address] Referring Family Medicine 11/24/20 Equal Employment Opportunity Officer Relationship Specialty Start Date End Date Zeenat Herndon CNP [address] [place] [address] PCP - General Family Medicine 08/28/19 Annamarie Ochoa APRN [address] [place] [address] Referring Family Medicine 11/24/20 Equal Employment Opportunity Officer Relationship Specialty Start Date End Date Zeenat Herndon CNP [address] [place] [address] PCP - General Family Medicine 08/28/19 Annamarie Ochoa APRN [address] [place] [address] Referring Family Medicine 11/24/20 Equal Employment Opportunity Officer Relationship Specialty Start Date End Date Anup Bruce APRN - MANAGER OF COMMUNITY RELATIONS [address] [place] [address] PCP - General Family Medicine 12/14/23 Equal Employment Opportunity Officer Relationship Specialty Start Date End Date Zeenat Herndon MANAGER OF COMMUNITY RELATIONS [address] [place] [address] PCP - General Family Medicine 08/28/19 Annamarie Ochoa APRN [address] [place] [address] Referring Family Medicine 11/24/20 Equal Employment Opportunity Officer Relationship Specialty Start Date End Date Zeenat Herndon MANAGER OF COMMUNITY RELATIONS [address] [place] [address] PCP - General Family Medicine 08/28/19 Annamarie Ochoa APRN [address] [place] [address] Referring Family Medicine 11/24/20 Goals (unrecognized section and content) Goals may be documented in a n alternate section Ordered Prescriptions (unrec ognized section and content) Prescription Sig Dispensed Refills Start Date End Da te sodium bicarbonate 650 MG tablet Take 1 tablet by mouth 2 times daily for 7 days 14 tablet 0 12/03/2023 12/10/2023 ciprofloxacin (CIPRO) 500 MG tablet Take 1 tablet by mouth daily for 7 days 7 tablet 0 12/03/2023 12/10/2023 sodium bicarbonate 650 MG tablet Take 1 tablet by mouth 2 times daily for 14 days 28 tablet 0 12/03/2023 12/03/2023 Scheduled Active and Recently Administ ered Medications (unrecognized section and content) Medication Order 12/01/2023 12/02/2023 12/03/2023 famotidine (PEPCID) 20 mg in sodium chloride (PF) 0.9 % 10 mL injection 20 mg, IntraVENous, 2 TIMES DAILY, First dose on Mon12/01/23 at 2115, Until Discontinued, IV Push over minimum of 2 minutes - Dilute with 10 mL NS 214 (Given - Provider: Dalila Patton, HALEY) 1006 (Given - Provider: Pricila Rice RN)1544 (MAR Hold - Provider: Kristyn Autohold - Reason: Unreviewed Transfer Orders)1846 (MAR Unhold - Provider: Vicenta Fulton, HALEY)2027 (Given - Provider: Margie Hamm, HALEY) 0816 (Given - Provider: Jayne Magana, HALEY)2100 (Due) indomethacin (INDOCIN) 100 MG suppository 100 mg 100 mg, Rectal, ONCE, 1 dose, On 12/02/23 at 1630 1848 (Not Given - Provider: Vicenta Fulton, HALEY - Reason: Other) piperacillin-tazobactam (ZOSYN) 3,375 mg in sodium chloride 0.9 % 50 mL IVPB (mini-bag) 3,375 mg, IntraVENous, EVERY 8 HOURS, First dose on Mon12/01/23 at 2030, Until Discontinued, Antimicrobial Indications: Intra-Abdominal Infection, Patient got Zosyn 3375mg at 1236 at [facility] today, appropriate to start first dose here at 2029 2148 (New Bag - Provider: Dalila Patton RN) 0149 (Stopped - Provider: Dalila Patton RN)0414 (New Bag - Provider: Dalila Patton RN)0522 (Rate/Dose Verify - Provider: Dalila Patton RN)0749 (Rate/Dose Verify - Provider: Margie Hamm RN)0756 (Rate/Dose Verify - Provider: Margie Hamm RN)0814 (Stopped - Provider: Vicenta Fulton RN)1418 (New Bag - Provider: Vicenta Fulton RN)1539 (Stopped - Provider: Margie Hamm RN)1544 (MAR Hold - Provider: Kristyn Autohold - Reason: Unreviewed Transfer Orders)1818 (Stopped - Provider: Vicenta Fulton RN)1846 (MAR Unhold - Provider: Vicenta Fulton RN)2034 (New Bag - Provider: Margie Hamm RN) 0034 (Stopped - Provider: Margie Hamm RN)0511 (New Bag - Provider: Margie Hamm RN)0512 (Rate/Dose Verify - Provider: Margie Hamm RN)0911 (Stopped - Provider: Jayne Magana RN)1228 (New Bag - Provider: Jayne Magana, RN)1628 (Stopped - Provider: Jayne Magana RN)2030 (Due) sodium chloride flush 0.9 % injection 5-40 mL 5-40 mL, IntraVENous, EVERY 12 HOURS SCHEDULED (2 times per day), First dose on Mon12/01/23 at 2100, Until Discontinued, For Line Patency: Peripheral IV = 5 mL; Midline or Central Line = 10 mL/lumen. If following IV push medication, administer flush at same rate as the IV push. Flush volume is determined by type of infusion therapy being given. For non-viscous solutions use: Peripheral IV = 5 mL Midline or Central Line = 10 mL/lumen For viscous solutions (i.e. blood components, parenteral nutrition, contrast media, or after obtaining blood sample) use: Peripheral IV = 10 mL Midline or Central Line = 20 mL/lumen 2002 (Not Given - Provider: Whitney Jade RN - Reason: IV Fluid Infusing) 0930 (Not Given - Provider: Vicenta Fulton RN - Reason: IV Fluid Infusing)1544 (MAR Hold - Provider: Mar Autohold - Reason: Unreviewed Transfer Orders)1846 (MAR Unhold - Provider: Vicenta Fulton, RN)2013 (Not Given - Provider: Margie Hamm RN - Reason: IV Fluid Infusing) 0818 (Given - Provider: Jayne Magana, RN)2100 (Due) sodium phosphate 20 mmol in sodium chloride 0.9 % 500 mL IVPB (COMPLETED) 20 mmol, IntraVENous, at 125 mL/hr, Administer over 240 Minutes, ONCE, On 12/02/23 at 0745, For 1 dose 1146 (New Bag - Provider: Vicenta Fulton, RN)1546 (Stopped - Provider: Vicenta Fulton, RN) sodium phosphate 20 mmol in sodium chloride 0.9 % 500 mL IVPB (COMPLETED) 20 mmol, IntraVENous, at 125 mL/hr, Administer over 240 Minutes, ONCE, On Mon12/03/23 at 1030, For 1 dose 1226 (New Bag - Provider: Jayne Magana RN)1626 (Stopped - Provider: Jayne Magana RN) Continuous Medication Order 12/01/2023 12/02/2023 12/03/2023 0.9 % sodium chloride infusion (CANCELED) IntraVENous, at 125 mL/hr, CONTINUOUS, Starting on Mon12/01/23 at 1900 1851 (New Bag - Provider: Anne Shafer RN) 0252 (Rate/Dose Change - Provider: Dalila Patton RN)0256 (Rate/Dose Change - Provider: Dalila Patton, RN)0259 (New Bag - Provider: Dalila Patton RN)0522 (Rate/Dose Verify - Provider: Dalila Patton RN)1544 (SEP Hold - Provider: Mar Autohold - Reason: Unreviewed Transfer Orders)1846 (SEP Unhold - Provider: Vicenta Fulton, HALEY) sodium bicarbonate 150 mEq in dextrose 5 % 1,000 mL infusion IntraVENous, at 50 mL/hr, CONTINUOUS, Starting on 12/02/23 at 0815 1147 (New Bag - Provider: Vicenta Fulton, HALEY)1544 (SEP Hold - Provider: Mar Autohold - Reason: Unreviewed Transfer Orders)1846 (SEP Unhold - Provider: Vicenta Fulton, HALEY) 1639 (Stopped - Provider: Jayne Magana RN) PRN Medication Order 12/01/2023 12/02/2023 12/03/2023 0.9 % sodium chloride infusion IntraVENous, at 5-250 mL/hr, PRN, if patient receiving piggyback infusions and maintenance fluids are not ordered OR KVO fluids to protect IV site / prevent frequent line interruptions/ long duration, Starting on Mon12/01/23 at 1837, For piggyback infusion, administer at same rate as piggyback for a total of 25 mL. Enter 25 mL into dose field and piggyback rate into rate field of order. If piggyback is infusing at a rate less than 100 mL/hr, enter 25 mL into dose field and 100 mL/hr into rate field of order. For KVO fluids, enter rate of 20 mL/hr or less into rate field of order. 1544 (SEP Hold - Provider: Kristyn Autohold - Reason: Unreviewed Transfer Orders)184 (SEP Unhold - Provider: Vicenta Fulton, HALEY)2031 (New Bag - Provider: Margie Hamm RN)203 (Paused - Provider: Margie Hamm RN) 0036 (Restarted - Provider: Margie Hamm RN)0511 (Stopped - Provider: Margie Hamm RN)1222 (New Bag - Provider: Jayne Magana RN)1638 (Stopped - Provider: Jayne Magana RN) dextrose 10 % infusion IntraVENous, at 100 mL/hr, CONTINUOUS PRN, if blood glucose remains LESS THAN 70 mg/dL after 2 dextrose 10% intravenous boluses or administration of glucagon, Starting on 12/02/23 at 0741, If blood glucose fails to stabilize after 2 dextrose 10% intravenous boluses or glucagon administration, start dextrose 10% infusion at 100 mL/hour and repeat blood glucose at 30 and 60 minutes. If blood glucose is GREATER THAN 70 mg/dL after 60 minutes, discontinue dextrose 10% infusion. 1544 (SEP Hold - Provider: Kristyn Autohold - Reason: Unreviewed Transfer Orders)184 (SEP Unhold - Provider: Vicenta Fulton RN) dextrose bolus 10% 125 mL(Linked Group 1) 125 mL, IntraVENous, at 937.5 mL/hr, Administer over 8 Minutes, PRN, Other, Blood glucose 40 - 69 mg/dL and patient NOT ALERT or NPO, Starting on 12/02/23 at 0741, Repeat blood glucose in 15 minutes. If blood glucose remains LESS THAN 70 mg/dL, repeat treatment and recheck blood glucose in 15 minutes x 2. If using glycemic management system, dose as instructed per system. If blood glucose remains LESS THAN 70 mg/dL after 2 intravenous boluses start dextrose 10% at 100 mL/hour and notify provider. 1544 ([facility] Hold - Provider: [facility] Autohold - Reason: Unreviewed Transfer Orders)184 ([facility] Unhold - Provider: Vicenta Fulton, HALEY) dextrose bolus 10% 250 mL(Linked Group 1) 250 mL, IntraVENous, at 937.5 mL/hr, Administer over 16 Minutes, PRN, Other, Blood glucose LESS THAN 40 mg/dL and patient NOT ALERT or NPO, Starting on 12/02/23 at 0741, Repeat blood glucose in 15 minutes. If blood glucose remains LESS THAN 70 mg/dL, repeat treatment and recheck blood glucose in 15 minutes x 2. If using glycemic management system, dose as instructed per system. If blood glucose remains LESS THAN 70 mg/dL after 2 intravenous boluses start dextrose 10% at 100 mL/hour and notify provider. 1544 ([facility] Hold - Provider: [facility] Autohold - Reason: Unreviewed Transfer Orders)184 ([facility] Unhold - Provider: Vicenta Fulton, HALEY) diphenhydrAMINE (BENADRYL) injection 25 mg 25 mg, IntraVENous, EVERY 6 HOURS PRN, Starting on Mon12/01/23 at 2008, Until Discontinued, Itching, Other, allergic reaction, IV Push at rate not to exceed 25 mg/min. 1544 ([facility] Hold - Provider: [facility] Autohold - Reason: Unreviewed Transfer Orders)184 ([facility] Unhold - Provider: Vicenta Fulton, HALEY) glucagon injection 1 mg 1 mg, IntraMUSCular, PRN, Starting on 12/02/23 at 0741, Until Discontinued, Low blood sugar, Blood glucose less than 70 mg/dL and patient NOT ALERT or NPO and does not have IV access., After administration, attempt intravenous access and start D5W at 100 mL/hr. Repeat blood glucose in 15 minutes x2 and notify provider. 1544 ([facility] Hold - Provider: [facility] Autohold - Reason: Unreviewed Transfer Orders)184 ([facility] Unhold - Provider: Vicenta Fulton, RN) glucose chewable tablet 16 g 16 g (4 tablet), Oral, PRN, Starting on 12/02/23 at 0741, Until Discontinued, Low blood sugar, If blood glucose is LESS THAN 70 mg/dL and patient is alert and tolerating oral. Give 4 tablets (16g) Repeat blood glucose in 15 minutes. If blood glucose is LESS THAN 70 mg/dL, repeat treatment and recheck blood glucose in 15 minutes x 2. If blood glucose remains LESS THAN 70 mg/dL, notify provider. 1544 (SEP Hold - Provider: [facility] Autohold - Reason: Unreviewed Transfer Orders)184 (SEP Unhold - Provider: Vicenta Fulton, HALEY) HYDROmorphone (DILAUDID) injection 0.25 mg 0.25 mg, IntraVENous, EVERY 3 HOURS PRN, Starting on Mon12/01/23 at 1949, Until Discontinued, Pain Severe (7-10), If oral and IV narcotics ordered, use oral first and only use IV if oral is ineffective or cannot take oral. Do Not give oral and IV within 1 hour of each other unless specifically ordered. 2008 (Given - Provider: Dalila Patton RN) 0650 (Given - Provider: Dalila Patton RN)1005 (Given - Provider: Pricila Rice RN)1414 (Given - Provider: Vicenta Fulton, HALEY)1544 (SEP Hold - Provider: [facility] Autohold - Reason: Unreviewed Transfer Orders)184 ([facility] Unhold - Provider: Vicenta Fulton, HALEY) indomethacin (INDOCIN) 50 MG suppository (CANCELED) PRN, Starting on 12/02/23 at 1617, Until 12/02/23 at 1720, Intra-op 1617 (Given - Provider: Annamarie Driver RN) iopamidol (ISOVUE-300) 61 % injection (CANCELED) PRN, Starting on 12/02/23 at 1617, Until 12/02/23 at 1720, Intra-op 1617 (Given - Provider: Braden Hawk MD - Comment: POURED TO BACK TABLE) magnesium sulfate 1000 mg in dextrose 5% 100 mL IVPB 1,000 mg, IntraVENous, at 100 mL/hr, Administer over 1 Hours, PRN, Other, Per IV Magnesium Replacement Protocol, Starting on Mon12/01/23 at 1837, Mg Lab Replacement Action 1.4-1.6 1 gram IVPB x 2 doses (2 gram Total) 1.0-1.3 1 gram IVPB x 4 doses (4 gram Total) <1.0 CALL PHYSICIAN and 1 gram IVPB x 4 doses (4 gram Total) Infuse at 1 gram/hr. Repeat Mag level next AM. Protocol not for use in patients with CrCl less than 30 mL/min. 1544 (MAR Hold - Provider: Kristyn Autohold - Reason: Unreviewed Transfer Orders)184 ([facility] Unhold - Provider: Vicenta Fulton, RN) ondansetron (ZOFRAN) injection 4 mg(Linked Group 2) 4 mg, IntraVENous, EVERY 6 HOURS PRN, Starting on Mon12/01/23 at 1837, Until Discontinued, Nausea, Vomiting, Administer if oral route cannot be used. 1852 (Given - Provider: Anne Shafer RN) 0542 (Given - Provider: Dalila Patton, HALEY)1349 (Given - Provider: Vicenta Fulton, RN)1544 (MAR Hold - Provider: Kristyn Autohold - Reason: Unreviewed Transfer Orders)184 ([facility] Unhold - Provider: Vicenta Fulton, HALEY) ondansetron (ZOFRAN-ODT) disintegrating tablet 4 mg(Linked Group 2) 4 mg, Oral, EVERY 8 HOURS PRN, Starting on Mon12/01/23 at 1837, Until Discontinued, Nausea, Vomiting 1852 (See Alternative - Provider: Anne Shafer RN) 0542 (See Alternative - Provider: Dalila Patton, HALEY)1349 (See Alternative - Provider: Vicenta Fulton, RN)1544 (MAR Hold - Provider: Kristyn Autohold - Reason: Unreviewed Transfer Orders)184 ([facility] Unhold - Provider: Vicenta Fulton, HALEY) polyethylene glycol (GLYCOLAX) packet 17 g 17 g, Oral, DAILY PRN, Starting on Mon12/01/23 at 1837, Until Discontinued, Constipation, First line therapy for constipation 1544 (MAR Hold - Provider: Kristyn Autohold - Reason: Unreviewed Transfer Orders)184 (MAR Unhold - Provider: Vicenta Fulton RN)7 (Given - Provider: Margie Hamm, RN) 0816 (Given - Provider: Jayne Magana, HALEY) potassium bicarb-citric acid (EFFER-K) effervescent tablet 40 mEq(Linked Group 3) 40 mEq, Oral, PRN, Starting on Mon12/01/23 at 1837, Until Discontinued, Per Potassium Replacement Protocol, Administer as alternative if patient unable to tolerate oral tablet. K Lab Replacement Action 3.1 to 3.5 40 mEq ORAL x 1 Under 3.1 Refer to IV replacement protocol Recheck K level in AM. Protocol not for use in patients with CrCl less than 30 mL/min. Do not chew or crush. Dissolve flavored tablets completely in 3 to 4 ounces of cold water; unflavored tablets may be dissolved in 3 to 4 ounces of cold juice. Patient to sip slowly over a 5 to 10 minute period. May further dilute if GI adverse effects occur. 1544 ([facility] Hold - Provider: Kristyn Autohold - Reason: Unreviewed Transfer Orders)1845 ([facility] Unhold - Provider: Vicenta Fulton RN) potassium chloride (KLOR-CON M) extended release tablet 40 mEq(Linked Group 3) 40 mEq, Oral, PRN, Starting on Mon12/01/23 at 1837, Until Discontinued, Potassium Replacement, May give alternative linked oral order (ordered as effervescent, packet, or liquid solution) if patient unable to tolerate tablet. K Lab Replacement Action 3.1 to 3.5 40 mEq ORAL x 1 Under 3.1 Refer to IV replacement protocol Recheck K level in AM. Protocol not for use in patients with CrCl less than 30 mL/min. Do not crush, chew, or suck on tablet. Tablet may also be broken in half and each half swallowed separately. 1544 ([facility] Hold - Provider: Kristyn Autohold - Reason: Unreviewed Transfer Orders)184 ([facility] Unhold - Provider: Vicenta Fulton RN) potassium chloride 10 mEq/100 mL IVPB (Peripheral Line)(Linked Group 3) 10 mEq, IntraVENous, PRN, Starting on Mon12/01/23 at 1837, Until Discontinued, at 100 mL/hr, Per Potassium Replacement Protocol, K Lab Replacement Action 2.7-3.0 10 mEeq IVPB x 6 doses (60 mEq Total) <2.7 CALL PHYSICIAN and 10 mEq IVPB x 6 doses (60 mEq Total) Infuse at 10 mEq/hr. Repeat potassium lab 1 hour after final administration. Protocol not for use in patients with CrCl less than 30 mL/min. 1544 ([facility] Hold - Provider: [facility] Autohold - Reason: Unreviewed Transfer Orders)1846 ([facility] Unhold - Provider: Vicenta Fulton, RN) prochlorperazine (COMPAZINE) injection 10 mg 10 mg, IntraVENous, EVERY 6 HOURS PRN, Starting on Mon12/01/23 at 1950, Until Discontinued, Nausea, If administering IV push, administer at a maximum rate of 5 mg/minute. Use if zofran ineffective 2000 (Given - Provider: Whitney Jade RN) 101 (Given - Provider: Vicenta Fulton, HALEY)1544 ([facility] Hold - Provider: [facility] [employer] - Reason: Unreviewed Transfer Orders)184 ([facility] Unhold - Provider: Vicenta Fulton, HALEY) sodium chloride flush 0.9 % injection 10 mL 10 mL, IntraVENous, PRN, Starting on Mon12/01/23 at 1837, Until Discontinued, Line Care, After every IV line use 1544 ([facility] Hold - Provider: [facility] [employer] - Reason: Unreviewed Transfer Orders)184 ([facility] Unhold - Provider: Vicenta Fulton, HALEY) Linked Groups Order Group 1: dextrose bolus 10% 125 mLJump to med 125 mL, IntraVENous, at 937.5 mL/hr, Administer over 8 Minutes, PRN, Other, Blood glucose 40 - 69 mg/dL and patient NOT ALERT or NPO, Starting on 12/02/23 at 0741
Repeat blood glucose in 15 minutes. If blood glucose remains LESS THAN 70 mg/dL, repeat treatment and recheck blood glucose in 15 minutes x 2. If using glycemic management system, dose as instructed per system. If blood glucose remains LESS THAN 70 mg/dL after 2 intravenous boluses start dextrose 10% at 100 mL/hour and notify provider.
Or dextrose bolus 10% 250 mLJump to med 250 mL, IntraVENous, at 937.5 mL/hr, Administer over 16 Minutes, PRN, Other, Blood glucose LESS THAN 40 mg/dL and patient NOT ALERT or NPO, Starting on 12/02/23 at 0741
Repeat blood glucose in 15 minutes. If blood glucose remains LESS THAN 70 mg/dL, repeat treatment and recheck blood glucose in 15 minutes x 2. If using glycemic management system, dose as instructed per system. If blood glucose remains LESS THAN 70 mg/dL after 2 intravenous boluses start dextrose 10% at 100 mL/hour and notify provider.
Group 2: ondansetron (ZOFRAN-ODT) disintegrating tablet 4 mgJump to med 4 mg, Oral, EVERY 8 HOURS PRN, Starting on Mon12/01/23 at 1837, Until Discontinued, Nausea, Vomiting Or ondansetron (ZOFRAN) injection 4 mgJump to med 4 mg, IntraVENous, EVERY 6 HOURS PRN, Starting on Mon12/01/23 at 1837, Until Discontinued, Nausea, Vomiting
Administer if oral route cannot be used.
Group 3: potassium chloride (KLOR-CON M) extended release tablet 40 mEqJump to med 40 mEq, Oral, PRN, Starting on Mon12/01/23 at 1837, Until Discontinued, Potassium Replacement
May give alternative linked oral order (ordered as effervescent, packet, or liquid solution) if patient unable to tolerate tablet. K Lab Repla cemen t Action 3.1 to 3.5 40 mEq ORAL x 1 Under 3.1 Refer to IV replacement protocol Recheck K level in AM. Protocol not for use in patients with CrCl less than 30 mL/min. Do not crush, chew, or suck on tablet. Tablet may also be broken in half and each half swallowed separately.
Or potassium bicarb-citric acid (EFFER-K) effervescent tablet 40 mEqJump to med 40 mEq, Oral, PRN, Starting on Mon12/01/23 at 1837, Until Discontinued, Per Potassium Replacement Protocol
Administer as alternative if patient unable to tolerate oral tablet. K Lab Repla cemen t Action 3.1 to 3.5 40 mEq ORAL x 1 Under 3.1 Refer to IV replacement protocol Recheck K level in AM. Protocol not for use in patients with CrCl less than 30 mL/min. Do not chew or crush. Dissolve flavored tablets completely in 3 to 4 ounces of cold water; unflavored tablets may be dissolved in 3 to 4 ounces of cold juice. Patient to sip slowly over a 5 to 10 minute period. May further dilute if GI adverse effects occur.
Or potassium chloride 10 mEq/100 mL IVPB (Peripheral Line)Jump to med 10 mEq, IntraVENous, PRN, Starting on Mon12/01/23 at 1837, Until Discontinued, at 100 mL/hr, Per Potassium Replacement Protocol
K Lab Replacement Action 2.7-3.0 10 mEeq IVPB x 6 doses &n bsp;& nbsp; (60 mEq Total) <2.7 CALL PHYSICIAN and &n bsp;& nbsp; 10 mEq IVPB x 6 doses &n bsp;& nbsp; (60 mEq Total) Infuse at 10 mEq/hr. Repeat potassium lab 1 hour after final administration. Protocol not for use in patients with CrCl less than 30 mL/min.
Scheduled Medication Order 01/13/2024 01/14/2024 01/15/2024 sodium chloride flush 0.9 % injection 5-40 mL 5-40 mL, IntraVENous, EVERY 12 HOURS SCHEDULED (2 times per day), First dose on Mon01/15/24 at 2100, Until Discontinued, For Line Patency: Peripheral IV = 5 mL; Midline or Central Line = 10 mL/lumen. If following IV push medication, administer flush at same rate as the IV push. Flush volume is determined by type of infusion therapy being given. For non-viscous solutions use: Peripheral IV = 5 mL Midline or Central Line = 10 mL/lumen For viscous solutions (i.e. blood components, parenteral nutrition, contrast media, or after obtaining blood sample) use: Peripheral IV = 10 mL Midline or Central Line = 20 mL/lumen, Pre-op (day of surgery) 2100 (Due) Continuous Medication Order 01/13/2024 01/14/2024 01/15/2024 0.9 % sodium chloride infusion IntraVENous, at 125 mL/hr, CONTINUOUS, Starting on Mon01/15/24 at 1245, Pre-op (day of surgery) 1245 (Due) lactated ringers IV soln infusion IntraVENous, at 125 mL/hr, CONTINUOUS, Starting on Mon01/15/24 at 1245, Pre-op (day of surgery) 1236 (New Bag - Prov ider: Vandana Rodriguez RN)1640 (Stopped - Provider: Tennille Orr RN) PRN Medication Order 01/13/2024 01/14/2024 01/15/2024 0.9 % sodium chloride infusion IntraVENous, at 5-250 mL/hr, PRN, if patient receiving piggyback infusions and maintenance fluids are not ordered OR KVO fluids to protect IV site / prevent frequent line interruptions/ long duration, Starting on Mon01/15/24 at 1224, For piggyback infusion, administer at same rate as piggyback for a total of 25 mL. Enter 25 mL into dose field and piggyback rate into rate field of order. If piggyback is infusing at a rate less than 100 mL/hr, enter 25 mL into dose field and 100 mL/hr into rate field of order. For KVO fluids, enter rate of 20 mL/hr or less into rate field of order., Pre-op (day of surgery) fentaNYL (SUBLIMAZE) injection 25 mcg 25 mcg, IntraVENous, EVERY 5 MIN PRN, 2 doses, Starting on Mon01/15/24 at 1527, Until Discontinued, Pain Moderate (4-6), For Phase I. If Phase II oral narcotics have been administered in the last 60 minutes, do not administer IV narcotics unless specifically approved by provider., PACU only lidocaine PF 1 % injection 1 mL 1 mL, IntraDERmal, ONCE PRN, 1 dose, Starting on Mon01/15/24 at 1230, Until Mon01/16/24 at 1230, IV start, Pre-op (day of surgery) ondansetron (ZOFRAN) injection 4 mg 4 mg, IntraVENous, ONCE PRN, 1 dose, Starting on Mon01/15/24 at 1527, Until Mon01/16/24 at 1527, Nausea, Initial antiemetic therapy., PACU only prochlorperazine (COMPAZINE) injection 5 mg 5 mg, IntraVENous, ONCE PRN, 1 dose, Starting on Mon01/15/24 at 1527, Until Mon01/16/24 at 1527, Nausea, Secondary antiemetic therapy., PACU only sodium chloride flush 0.9 % injection 5-40 mL 5-40 mL, IntraVENous, PRN, Starting on Mon01/15/24 at 1224, Until Discontinued, Line Care, After every IV line use, For Line Patency: Peripheral IV = 5 mL; Midline or Central Line = 10 mL/lumen. If following IV push medication, administer flush at same rate as the IV push. Flush volume is determined by type of infusion therapy being given. For non-viscous solutions use: Peripheral IV = 5 mL Midline or Central Line = 10 mL/lumen For viscous solutions (i.e. blood components, parenteral nutrition, contrast media, or after obtaining blood sample) use: Peripheral IV = 10 mL Midline or Central Line = 20 mL/lumen, Pre-op (day of surgery) Source Comments (unrecognize d section and content) In the event this informatio n is protected by the Federal Confidentiality of Alcohol and Drug Abuse Patient Records regulations: The Federal rules restrict any use of the information to criminally investigate or prosecute any alcohol or drug abuse patient.[facility] Rehabilitation[facility] the event this information is protected by the Federal Confidentiality of Alcohol and Drug Abuse Patient Records regulations: The Federal rules restrict any use of the information to criminally investigate or prosecute any alcohol or drug abuse patient.[facility] RehabilitationIn the event this information is protected by the Federal Confidentiality of Alcohol and Drug Abuse Patient Records regulations: The Federal rules restrict any use of the information to criminally investigate or prosecute any alcohol or drug abuse patient.[facility] RehabilitationIn the event this information is protected by the Federal Confidentiality of Alcohol and Drug Abuse Patient Records regulations: The Federal rules restrict any use of the information to criminally investigate or prosecute any alcohol or drug abuse patient.[facility] RehabilitationIn the event this information is protected by the Federal Confidentiality of Alcohol and Drug Abuse Patient Records regulations: The Federal rules restrict any use of the information to criminally investigate or prosecute any alcohol or drug abuse patient.[facility] Reason for Visit (unrecogniz ed section and content) Reason Comments Received Outside Medical Records Reason Comments New Patient [employer] [facility] - Other Specialty Diagnoses / Procedures Referred By Sally t Referred To Contact Diagnoses Calculus of bile duct with acute and chronic cholangitis without obstruction Calculus of bile duct with acute and chronic cholangitis without obstruction [K80.36] Procedures MI ERCP DX COLLECTION SPECIMEN BRUSHING/WASHING MI ESOPHAGOGASTRODUODENOSCOPY TRANSORAL DIAGNOSTIC CHG GI ENDOSCOPIC US S&I ENDOSCOPIC RETROGRADE CHOLANGIOPANCREATOGRAPHY with STENT EXCHANGE ESOPHAGOGASTRODUODENOSCOPY ENDOSCOPIC ULTRASOUND Braden Hawk MD [address] [place] [address] [facility] [id number] [place] [address] Referral ID Status Reason Start Date Expiration Date Visits Re quested Visits Authorized [id number] 1 1 Reason Comments Consult Second opinion for c hronic pancreatitis Reason Comments [employer] - Other FOR RECORDS PERTAINING TO PATIENTS WHO ARE [...] BE BASED ON THE PRIMARY CLINICAL RECORDS. [employer] provides no warranty or guarantee of the accuracy or completeness of information in this document.
[2024-02-12 14:09] LABS: Pancreatic Elastase, Fecal >800 (>200)
== END 2024-02-08 09:38 | disposition home or self-care (01) ==
LOC: LAB 09:39
PROVIDERS: PCP Nurse Practitioner Family
DX: K86.1 Other chronic pancreatitis (principal)
CPT/HCPCS: 82656

== ENCOUNTER 2024-05-14 08:38 | Outpatient (OUT) | payer BC, SELFPAY ==
--- OUTSIDE RECORDS SUMMARY | 2024-05-14 08:55 | XMS_ITS | CCD ---
Author Organization [facility] Care Team Providers Care Crew Person Name Role Phone Jeremiah, Vikas Unavailable Unavailable [...] Unavailable JENNIFER, DR JOSEPH Attending Unavailable AICHHOLZ, SOLE MOLDING MACHINE OPERATOR MIA Primary Care Unavailable KARASIK ., DR RASHID Admitting Unavailabl e KARASIK ., DR RASHID Attending Unavailabl e REQUEST, NONE LISTED Primary Care Unavaila ble KARASIK ., DR RASHID Consulting Unavailabl e KARASIK ., DR RASHID Admitting Unavailabl e KARCOY ., DR RASHID Attending Unavailabl e [facility] [place]LA[place] Primary Care Unavailable NEWTON ., DR RASHID Consulting Unavailabl e [facility], DR CALDERON Young Consulting Unavailable Nataprawira, DO Diana Attending Provider NO FAMILY, PHYSICIAN Primary Care Provider Unava ilable Nataprawira, DO Diana Admit Provider MUNDO Ely Primary Care Provider [phone] MD Lilia Huber Attending Provider [phone] NO FAMILY, PHYSICIAN Primary Care Unavailable Nataprawira, Diana Admitting Unavailable Nataprawira, Diana Attending Unavailable Warchol, Celestina Primary Care Unavailable Lilia Huber Admitting Unavailable Lilia Huber Attending Unavailable Nataprawira, Diana Admitting Unavailable Nataprawira, Diana Attending Unavailable Warchol, Celestina Primary Care Unavailable Unavailable Primary Care Provider Unavailabl e GRTERRAS, HUI E Referring Unavailable NO PCP, NO PCP Primary Care Unavailable GRILLIS HUI E Referring Unavailable NO PCP, NO PCP Primary Care Unavailable GRILLIS, HUI E Admitting Unavailable GRILLIS, HUI E Attending Unavailable GRILLIS, HUI E Referring Unavailable NO PCP, NO PCP Primary Care Unavailable JUDI HUMPHREYS Attending Unavailable NO PCP, NO PCP Primary Care Unavailable Zeenat Herndon CNP Primary Care Provider Annamarie Ochoa APRN Unavailable Teo ALDANA - Anup AGUILAR Primary Care Provider HAMDANI, BRADEN GENARO T Admitting Unavailabl e HAMDANI, BRADEN GENARO T Attending Unavailabl e ANUP BRUCE Primary Care Unavailable HAMDANI, BRADEN GENARO T Consulting Unavailabl e NI DOLAN Referring Unavailable ANUP BRUCE Primary Care Unavailable AHMAD, SHOWKAT Admitting Unavailable AHMAD, SHOWKAT Attending Unavailable TIMOTEO, FATEH U Consulting Unavailable HUI LOCKE A Consulting Unavailable NI DOLAN Referring Unavailable DAVID, VIRENDER K Admitting Unavailable DAVID, VIRENDER K Attending Unavailable SHALA PRINCE Referring Unavailable SHALA PRINCE Attending Unavailable ZEENAT HERNDON Primary Care Unavailable TEO, ANUP L Primary Care Unavailable DEXTER PALUMBO Referring Unavailable NO PCP, NO PCP Primary Care Unavailable HUI POLLOCK Attending Unavailable NO PCP, NO PCP Primary Care Unavailable TEO, ANUP L Attending Unavailable TEO, ANUP L Primary Care Unavailable TEO, ANUP L Attending Unavailable TEO, ANUP L Referring Unavailable TEO, ANUP L Primary Care Unavailable TEO, ANUP L Referring Unavailable TEO, ANUP L Primary Care Unavailable TEO, ANUP L Referring Unavailable TEO, ANUP L Primary Care Unavailable Allergies Allergy Classification Reported Allergen(s) Allergy Type Date of Onset Reaction(s) Facility Penicillins (antibiotic) (4 sources) Amoxicillin; Translations: [AMOXICILLIN] Drug Allergy 6 Hives, Rash, Other (See Comments) [facility] (17 sources) Amoxicillin; Translations: [Amoxicillin] Drug Allergy 6 Hives, Rash, Other (See Comments) [facility] Repository Medications Current Medications Medication [...] % 10 mL injection (1 source) Start: 4 famotidine (PEPCID) 20 mg in sodium chloride (PF) 0.9 % 10 mL injection 2 ml fentaNYL 0.05 mg/ml injection (1 source) Opioid Agonist Start: 4 fentaNYL (SUBLIMAZE) injection 25 mcg glucagon (rdna) 1 mg injection (1 source) Antihypoglycemic Agent Start: 4 glucagon injection 1 mg 1000 ml glucose 100 mg/ml injection (3 sources) Start: 4 dextrose 10 % infusion Start: 12-02-2023 dextrose [...] 0.9 % 50 mL IVPB (mini-bag) Pnv,Calcium 75-Rspk-Thaaa Acid (M-Liza Plus) 27 mg iron- 1 mg tablet (2 sources) Start: 02-23-2023 Pnv,Calcium 70-Aycz-Zacqc Acid (M- Plus) 27 mg iron- 1 mg tablet Active TAB TABLET February 23, 2023 12:00am polyethylene glycol 3350 47809 mg powder for oral solution (1 source) [...] cholangitis without obstruction] Onset: 12-13-2023 01-15-2024 Chronic Deficiency and other anemia (2 sources) Nutritional anemia, unspecified; Translations: [Nutritional anemia, unspecified] Onset: 02-23-2024 Episodic Fluid and electrolyte disorders (5 sources) Dehydration; Translations: [Metabolic acidosis] Onset: 07-14-2022 12-03-2023 Episodic Headache; including migraine (6 sources) Migraine; Translations: [Migraine, unspecified, without mention of intractable migraine without mention of status migrainosus] Chronic Miscellaneous mental health disorders (1 source) Primary insomnia; Translations: [PRIMARY INSOMNIA] Onset: 11-10-2021 Chronic Other complications of ; puerperium affecting management [...] Episodic Pancreatic disorders (not diabetes) (7 sources) Chronic pancreatitis; Translations: [Other chronic pancreatitis] Onset: 12-22-2023 01-04-2024 Chronic Residual codes; [...] scar from previous surgery] Onset: 02-23-2023 Episodic Septicemia (except in labor) (2 sources) Sepsis; Translations: [Sepsis, unspecified organism] Onset: 12-13-2023 12-13-2023 Episodic Spondylosis; intervertebral disc disorders; other back problems (6 sources) Neck pain; Translations: [Cervicalgia] Episodic Unclassified (1 source) Encounter for care and examination of lactating mother; Translations: [Encounter for care and examination of lactating mother] Onset: 02-27-2023 Unclassified (1 source) Encounter for screening for Streptococcus B; Translations: [Encounter for screening for Streptococcus B] Onset: 01-31-2023 Unclassified (1 source) cholelithiasis, chronic cholecystitis Onset: 11-30-2023 Unclassified (1 source) Acidosis, unspecified; Translations: [Acidosis, unspecified] Onset: 12-02-2023 Unclassified (1 source) Elevation of levels of liver transaminase levels; Translations: [Elevation of levels of liver transaminase levels] Onset: 12-01-2023 Unclassified (1 source) Annual Exam Onset: 02-23-2024 Unclassified (1 source) New Patient Onset: 12-22-2023 Unclassified (1 source) Cholelithiasis Onset: 11-22-2023 Past or Other Problems Problem Classification Problem Date Documented Date Episodic/Chronic Abdominal pain (3 sources) Upper abdominal pain; Translations: [Upper abdominal pain, unspecified] Onset: 12-01-2023 Resolved: 12-03-2023 12-03-2023 Episodic Biliary tract disease (3 sources) Calculus of gallbladder with acute cholecystitis without obstruction; Translations: [Calculus of gallbladder with chronic cholecystitis without obstruction] Onset: 11-22-2023 Episodic Calculus of urinary tract (1 source) Calculus of kidney; Translations: [Calculus of kidney] Onset: 11-22-2023 Episodic Nausea and vomiting (8 sources) Nausea with vomiting, unspecified; Translations: [Nausea] Onset: 07-08-2022 Resolved: 12-03-2023 Episodic Other aftercare (1 source) Other alf (current) drug therapy; Translations: [OTH ASSISTED CURRENT DRUG THERAPY] Onset: 07-12-2022 Episodic Other [...] 8 WEEKS GESTATION ] Onset: 07-12-2022 Episodic Residual codes; unclassified (1 source) Pain, unspecified; Translations: [Pain, unspecified] Onset: 11-22-2023 Episodic Screening and history of mental health and substance abuse codes (1 source) Personal history of nicotine dependence; Translations: [PERSONAL HISTORY OF NICOTINE DEPEND] Onset: 07-14-2022 Episodic Substance-related disorders (1 source) Cannabis use, unspecified, uncomplicated; Translations: [Cannabis use, unspecified, uncomplicated] Onset: 11-22-2023 Episodic Unclassified (5 sources) Patient encounter status; Translations: [Preop testing] Urinary tract infections (1 source) Urinary tract infection, site not specified; Translations: [UTI SITE NOT SPECIFIED] Onset: 07-14-2022 Episodic NEGATED: Highlighted row has not occurred!Residual codes; unclassified (4 sources) Disease Episodic Results Test Name Value Interpretation Reference Range Facil ity CBC AND AUTO DIFFon 02-23-20 24 ABSOLUTE BASOPHIL 0.0 X10E9/L Normal 0.0-0.2 [facility] Comment on above: Performed By: #### Karina MCKEON, 57914-2 #### [facility] ([id number]) [address], [facility] [address] [place] [address] ABSOLUTE NEUTROPHIL 5.0 X10E9/L Normal 1.5-6.6 [facility] Comment on above: Performed By: #### Karina MCKEON, 19573-3 #### [facility] ([id number]) [address] [address] Basophils/100 WBC (Bld) 0.4 % Normal [facility] Comment on above: Performed By: #### Karina MCKEON, 37987-1 #### [facility] ([id number]) [address] [address] Eosinophils (Bld) [#/Vol] 0.1 10*3/uL Normal 0.0-0.4 [facility] Comment on above: Performed By: #### Karina MCKEON, 15985-5 #### [facility] ([id number]) [address] [address] Eosinophils/100 WBC (Bld) 1.5 % Normal [facility] Comment on above: Performed By: #### Karina MCKEON, 37934-5 #### [facility] ([id number]) [address] [address] [place] [address] Erythrocyte distribution width (RBC) [Ratio] 13.8 % Normal 11.5-15.0 [facility] Comment on above: Performed By: #### Karina MCKEON, 47652-9 #### [facility] ([id number]) [address] [address] [place] [address] Hematocrit (Bld) [Volume fraction] 44.0 % Normal 35-47 [facility] Comment on above: Performed By: #### Karina MCKEON, 14074-1 #### [facility] ([id number]) [address], [address] [place] [address] Hemoglobin (Bld) [Mass/Vol] 14.8 g/dL Normal 11.7-15.5 [facility] Comment on above: Performed By: #### Karina MCKEON, 72554-4 #### [facility] ([id number]) [address], [address] [place] [address] Lymphocytes (Bld) [#/Vol] 4.0 10*3/uL High 1.0-3.5 [facility] Comment on above: Performed By: #### Karina MCKEON, 20399-3 #### [facility] ([id number]) [address], [address] [place] [address] Lymphocytes/100 WBC (Bld) 41.5 % Normal [facility] Comment on above: Performed By: #### Karina MCKEON, 85769-4 #### [facility] ([id number]) [address], [address] [place] [address] MCH (RBC) [Entitic mass] 30.6 pg Normal 27-34 [facility] Comment on above: Performed By: #### Karina MCKEON, 58090-5 #### [facility] ([id number]) [address], [address] [place] [address] MCHC (RBC) [Mass/Vol] 33.7 g/dL Normal 32-36 [facility] Comment on above: Performed By: #### Karina MCKEON, 04149-7 #### [facility] ([id number]) [address], [address] [place] [address] MCV (RBC) [Entitic vol] 91 fL Normal 80-100 [facility] Comment on above: Performed By: #### Karina MCKEON, 23116-1 #### [facility] ([id number]) [address], [address] [place] [address] Monocytes (Bld) [#/Vol] 0.4 10*3/uL Normal 0-0.9 [facility] Comment on above: Performed By: #### Karina MCKEON, 67198-4 #### [facility] ([id number]) [address], [address] [place] [address] Monocytes/100 WBC (Bld) 4.6 % Normal [facility] Comment on above: Performed By: #### Karina MCKEON, 76420-2 #### [facility] ([id number]) [address], [address] [place] [address] Neutrophils/100 WBC (Bld) 52.0 % Normal [facility] Comment on above: Performed By: #### Karina MCKEON, 51886-5 #### [facility] ([id number]) [address], [address] [place] [address] Platelet mean volume (Bld) [Entitic vol] 8.6 fL Normal 7-12 [facility] Comment on above: Performed By: #### Karina MCKEON, 53411-3 #### [facility] ([id number]) [address], [address] [place] [address] Platelets (Bld) [#/Vol] 398 10*3/uL Normal 150-450 [facility] Comment on above: Performed By: #### Karina MCKEON, 28094-1 #### [facility] ([id number]) [address], [address] [place] [address] RBC COUNT 4.85 X10E12/L Normal 3.80-5.20 [facility] Comment on above: Performed By: #### Karina MCKEON, 20233-2 #### [facility] ([id number]) [address] [address] WBC (Bld) [#/Vol] 9.7 10*3/uL Normal 4.0-11.0 [facility] Comment on above: Performed By: #### Karina MCKEON, 87122-7 #### [facility] ([id number]) [address], [address] [address] Lipid 1996 panelon 4 Cholesterol [Mass/Vol] 186 mg/dL Normal 150-200 [facility] Comment on above: Performed By: #### Karina MCKEON, 53159-1 #### [facility] ([id number]) [address], [address] [address] Cholesterol in HDL [Mass/Vol] 53 mg/dL Normal >39 [facility] Comment on above: Result Comment: HDL <40 mg/dL - High Risk HDL > or = 40mg/dL- Desirable HDL >60 mg/dL - Negative Risk Performed By: #### Karina MCKEON, 67234-5 #### [facility] ([id number]) [address], [address] [address] Cholesterol in LDL [Mass/Vol] 108 mg/dL Normal <130 [facility] Comment on above: Result Comment: LDL <100 mg/dL - Desirable LDL >160 mg/dL - High Risk Performed By: #### C MIKE, 12922-3 #### [facility] ([id number]) [address], [address] [place] [address] Cholesterol in VLDL [Mass/Vol] 25 mg/dL Normal 0-30 [facility] Comment on above: Performed By: #### C MIKE, 21663-5 #### [facility] ([id number]) [address], [address] [place] [address] CHOLESTEROL:HDL 3.5 Normal 1.0-5.0 [facility] Comment on above: Performed By: #### Karina MIKE, 43599-7 #### [facility] ([id number]) [address], [address] [place] [address] Triglyceride [Mass/Vol] 125 mg/dL Normal 27-150 [facility] Comment on above: Performed By: #### Karina MCKEON, 24594-5 #### [facility] ([id number]) [address], [address] [place] [address] Miscellaneouson 02-15-2024 Send Out Report PERFORMED AT [facility] [employer] Normal [facility] Comment on above: Result Comment: (NOT E) PRSS1 Gene, Full Gene Analysis Received: 06 Feb 2024 09:10 Reported: 14 Feb 2024 18:28 Interpretation MCR See note [1] below. This result decreases the likelihood but does not rule out the presence of a variant in the PRSS1 gene. Individuals may have a pathogenic variant in the PRSS1 gene that is not detectable by the methods utilized. Additionally, pathogenic variants in other genes not interrogated by this assay may cause a similar phenotype. Pancreatitis is a multifactorial condition that may involve environmental and/or genetic factors. This result should be interpreted in the context of clinical findings, family history, and other laboratory testing. A genetic consultation may be of benefit. ADDITIONAL INFORMATION Bi-directional sequence analysis was performed to test for the presence of a mutation in all coding regions and intron/exon boundaries of the PRSS1 gene (GenBank accession number [id number]; build GRCh37 (hg19)). An online research opportunity called [employer] ([employer]), a project of [employer], is available for the recipient of this genetic test. This patient registry collects de-identified genetic and health information to advance the knowledge of genetic variants. [facility] is a collaborator of [employer]. This may not be applicable for all tests. Test results should be interpreted in the context of clinical findings, family history, and other laboratory data. Misinterpretation of results may occur if the information provided is inaccurate or incomplete. Rare polymorphisms exist that could lead to false-negative or false-positive results. If results obtained do not match the clinical findings, additional testing should be considered. Bone Marrow transplants from allogenic donors will interfere with testing. Call [facility] for instructions for testing patients who have received a bone marrow transplant. One or more in silico tools were used to assist in the interpretation of these results. These tools are updated regularly and predictions for a given variant may change. Additionally, the predictability of these tools for the determination of pathogenicity is currently unvalidated. ............................................................ Result Summary MCR Negative ............................................................ Result MCR No reportable variants were detected. ............................................................ Specimen [facility] WB Whole Blood ............................................................ Released By [facility] Eduard Ross M.D. Laboratory Notes: 1. This test was developed and its performance characteristics determined by [facility] in a manner consistent with CLIA requirements. This test has not been cleared or approved by the U.S. Food and Drug Administration. + + : PERFORMING SITE LEGEND : + + : [facility] : [facility] : : : [address] [place] [address] : + + Received and reported dates and times are reported in Central Time. Performed By: #### C MIS1 #### [facility] [address] [place] [address] Assistant Professor In Family Studies: Raul Miller MD Immunoglob G Subclass 4on IgG subclass 4 52 mg/dL Normal 1-123 [facility] Comment on above: Result Comment: (NOT E) REFERENCE INTERVAL: Immunoglobulin G Subclass 4 Access complete set of age- and/or gender-specific reference intervals for this test in the [employer] Test Directory ([employer]). Performed By: [facility] [address] [place] [address] Installation And Repair Technician: Cooper Lundberg MD, PhD CLIA Number: [id number] Performed By: #### A IMG4 #### [facility] [address] [place] [address] Assistant Professor In Family Studies: Felipe Early MD #### TRIG, CPBILC #### [address] [id number] Assistant Professor In Family Studies: Raul Miller MD Comp Metab w/Bili Pron 02-01 Albumin [Mass/Vol] 5.2 g/dL Normal 3.5-5.2 [facility] Comment on above: Performed By: #### A IMG4 #### [facility] [address] [place] [address] Assistant Professor In Family Studies: Felipe Early MD #### TRIG, CPBILC #### [address] [id number] Assistant Professor In Family Studies: Raul Miller MD Albumin/Glob Ratio 2.0 Normal 1.0-2.5 [facility] Comment on above: Performed By: #### A IMG4 #### [facility] [address] [place] [address] Assistant Professor In Family Studies: Felipe Early MD #### ROSIE CPBILC #### [address] [id number] Assistant Professor In Family Studies: Raul Miller MD Alkaline Phos 102 U/L Normal 35-104 [facility] Comment on above: Performed By: #### A IMG4 #### [facility] [address] [place] [address] Assistant Professor In Family Studies: Felipe Early MD #### TRIG, CPBILC #### [address] [id number] Assistant Professor In Family Studies: Raul Miller MD ALT [Catalytic activity/Vol] 20 U/L Normal 10-35 [facility] Comment on above: Performed By: #### A IMG4 #### [facility] [address] [place] [address] Assistant Professor In Family Studies: Felipe Early MD #### TRIG, CPBILC #### [address] [id number] Assistant Professor In Family Studies: Raul Miller MD Anion gap [Moles/Vol] 10 mmol/L Normal 9-16 [facility] Comment on above: Performed By: #### A IMG4 #### [facility] [address] [place] [address] Assistant Professor In Family Studies: Felipe Early MD #### TRIG, CPBILC #### [address] [id number] Assistant Professor In Family Studies: Raul Miller MD AST [Catalytic activity/Vol] 19 U/L Normal 10-35 [facility] Comment on above: Performed By: #### A IMG4 #### [facility] [address] [place] [id number] Assistant Professor In Family Studies: Felipe Early MD #### TRIG, CPBILC #### [address] [address] Assistant Professor In Family Studies: Raul Miller MD Bilirubin [Mass/Vol] 0.3 mg/dL Normal 0.00-1.20 [facility] Comment on above: Performed By: #### A IMG4 #### [facility] [address] [place] [id number] Assistant Professor In Family Studies: Felipe Early MD #### TRIG, CPBILC #### [address] [address] Assistant Professor In Family Studies: Raul Miller MD Bilirubin, Indirect Can not be calculated Normal 0.0-1 .0 [facility] Comment on above: Performed By: #### A IMG4 #### [facility] [address] [place] [address] Assistant Professor In Family Studies: Felipe Early MD #### TRIG, CPBILC #### [address] [id number] Assistant Professor In Family Studies: Raul Miller MD Bilirubin.indirect [Mass/Vol] mg/dL Normal 0.0-0.2 [facility] Comment on above: Performed By: #### A IMG4 #### [facility] [address] [place] [address] Assistant Professor In Family Studies: Felipe Early MD #### ROSIE, CPBILC #### [address] [id number] Assistant Professor In Family Studies: Raul Miller MD Calcium [Mass/Vol] 10.8 mg/dL High 8.6-10.4 [facility] Comment on above: Performed By: #### A IMG4 #### [facility] [address] [place] [address] Assistant Professor In Family Studies: Felipe Early MD #### TRIG, CPBILC #### [address] [id number] Assistant Professor In Family Studies: Raul Miller MD Chloride [Moles/Vol] 103 mmol/L Normal 98-107 [facility] Comment on above: Performed By: #### A IMG4 #### [facility] [address] [place] [address] Assistant Professor In Family Studies: Felipe Early MD #### TRIG, CPBILC #### [address] [phone] Assistant Professor In Family Studies: Raul Miller MD CO2 [Moles/Vol] 25 mmol/L Normal 20-31 [facility] Comment on above: Performed By: #### A IMG4 #### [facility] [address] [place] [address] Assistant Professor In Family Studies: Felipe Early MD #### ROSIE CPBILC #### [address] [phone] Assistant Professor In Family Studies: Raul Miller MD Creatinine [Mass/Vol] 0.8 mg/dL Normal 0.50-0.90 [facility] Comment on above: Performed By: #### A IMG4 #### [facility] [address] [place] [address] Assistant Professor In Family Studies: Felipe Early MD #### ROSIE CPBILC #### [address] [address] Assistant Professor In Family Studies: Raul Miller MD GFR/1.73 sq M.predicted among non-blacks MDRD (S/P/Bld) [Vol rate/Area] mL/min/{1.73_m2} Normal >60 [facility] Comment on above: Result Comment: These [...] #### A IMG4 #### [facility] [address] [place] [address] Assistant Professor In Family Studies: Felipe Early MD #### ROSIE CPBILC #### [address] [address] Assistant Professor In Family Studies: Raul Miller MD Glucose [Mass/Vol] 86 mg/dL Normal 74-99 [facility] Comment on above: Performed By: #### Garrett IMG4 #### [facility] [address] [place] [address] Assistant Professor In Family Studies: Felipe Early MD #### TRIG, CPBILC #### [address] [id number] Assistant Professor In Family Studies: Raul Miller MD Potassium [Moles/Vol] 4.4 mmol/L Normal 3.7-5.3 [facility] Comment on above: Performed By: #### A IMG4 #### [facility] [address] [place] [address] Assistant Professor In Family Studies: Felipe Early MD #### TRIG, CPBILC #### [address] [id number] Assistant Professor In Family Studies: Raul Miller MD Protein [Mass/Vol] 8.5 g/dL Normal 6.6-8.7 [facility] Comment on above: Performed By: #### A IMG4 #### [facility] [address] [place] [phone] Assistant Professor In Family Studies: Felipe Early MD #### TRIG, CPBILC #### [address] [id number] Assistant Professor In Family Studies: Raul Miller MD Sodium [Moles/Vol] 138 mmol/L Normal 136-145 [facility] Comment on above: Performed By: #### A IMG4 #### [facility] [address] [place], [place] [id number] Assistant Professor In Family Studies: Felipe Early MD #### TRIG, CPBILC #### [address] [id number] Assistant Professor In Family Studies: Raul Miller MD Urea nitrogen [Mass/Vol] 13 mg/dL Normal 6-20 [facility] Comment on above: Performed By: #### A IMG4 #### [facility] [address] [place] [address] Assistant Professor In Family Studies: Felipe Early MD #### TRIG, CPBILC #### [address] [place], [place] [id number] Assistant Professor In Family Studies: Raul Miller MD Miscellaneouson 02-02-2024 Test Name [id number] [id number] Normal [facility] Comment on above: Performed By: #### C MIS1 #### [facility] [address] [place], [place] [id number] Assistant Professor In Family Studies: Raul Miller MD Triglycerideson 02-02-2024 Triglyceride [Mass/Vol] 207 mg/dL High <150 [facility] Comment on above: Result Comment: Triglyceride Guidelines: <150 Desirable 150-199 Borderline 200-499 High >499 Very high Based on AHA Guidelines for fasting triglyceride, April 2012. Performed By: #### A IMG4 #### [facility] [address] [place] [address] Assistant Professor In Family Studies: Felipe Early MD #### TRIG, CPBILC #### [facility] [address] [place], [place] [id number] Assistant Professor In Family Studies: Raul Miller MD [facility] 01-24-2024 [facility] Telephone ([id number]) NATALEE ALCOCER ([id number]) 1995 F Date Time Provider Department 01/24/24 SHALA PRINCE [id number] During your visit today, we recorded the following information about you: Allergies As of Date: 01/24/2024 Noted Allergy Reaction AMOXICILLIN 10/12/2015 4 - Hives Date Reviewed: 01/23/2024 Reviewed by: Chris Monterroso MA - Fully Assessed Reason for Visit: Hospital Admissions Officer - Other [3602] Prescriptions as of 01/24/2024 - ibuprofen (MOTRIN) 800 mg tablet Take 800 mg by mouth as needed. - cholecalciferol, vitamin D3, (VITAMIN D3 ORAL) Take 5 mg by mouth once daily. Problem List As Of Date: 01/24/2024 (None) Encounter Status:Closed by BOSTON FELDMAN on 01/24/24 [facility] CNOVon 01-23-2024 CNOV Office Visit ([id number] ) NATALEE ALCOCER ([id number]) 1995 F Date Time Provider Department 01/23/24 11:00 AM SHALA PRINCE [id number] During your visit today, we recorded the following information about you: Temperature Pulse Blood pressure Weight 97.4 degrees 70/minute 133/86 71.2 kg Height 1.549 m Shala Prince MD 01/23/2024 4:22 PM Signed INITIAL PANCREATITIS PATIENT PATIENT NAME: Natalee Alcocer REASON FOR CONSULT: Chronic Biliary Pancreatitis Ascending Cholangitis REQUESTING PHYSICIAN: Self-Referred DATE of SERVICE: 01/22/2024 TIME of SERVICE: 3:11 PM PCP: Zeenat Herndon MD, SOLE MOLDING MACHINE OPERATOR HPI: Ms. Alcocer is a 28 year [...] US RUQ [facility] Operative Report 11/30/2023 Dr. Pollock 11/02/2023 CT A/P Procedures: 12/13/2023 ERCP/EUS Pancreatic duct dilation: no Pancreatic duct stones: no Parenchymal stones: no Pancreatic Atrophy: no Focal pancreatitis: no Location of focal pancreatitis: (Head, Body/tail, Groove) No abnormal pancreatic imaging findings on all imaging review: ASSESSMENT: Chronic pancreatitis Etiology Biliary ( Idiopathic, gallstones, alcohol induced, medication induced, genetic, hypertriglyceridemia, (more content not included)... Normal [facility] FLUORO FOR SURGICAL PROCEDUR ESon 01-15-2024 FLUORO FOR SURGICAL PROCEDURES Radiology exam is complete. No Radiologist dictation. Please follow up with ordering provider. Final result Normal [facility] Guidance-- during surgeryon 01-15-2024 Radiology exam is complete. No Radiologist dictation. Please follow up with ordering provider. MHPN RIS CONSOLIDATED HCG,,Ur(POC)on HCG,,Ur(POC) Negative Normal NEG [facility] Comment on above: Result Comment: Spec imens with hCG levels near the threshold of the test (25 mIU/mL) may give a negative or indeterminate result. In such cases, another test should be performed with a new specimen in 48-72 hours. If early is suspected clinically in this setting, correlation with quantitative serum b-hCG level is suggested. Performed By: #### U MICAO, UAX #### [facility] [address] [place] [address] Assistant Professor In Family Studies: Emiliano Henderson MD POCT urine pregnancyon 01-14 Beta HCG ( test) Ql (U) Negative NEGATIVE [facility] Comment on above: Specimens with hCG l evels near the threshold of the test (25 mIU/mL) may give a negative or indeterminate result. In such cases, another test should be performed with a new specimen in 48-72 hours. If early is suspected clinically in this setting, correlation with quantitative serum b-hCG level is suggested. [facility] Surgical Pathology Reporton 01-15-2024 Surgical Pathology Report (NOTE) Path Number: [id number] -- Diagnosis -- A. BILE DUCT STENT, GROSS EXAMINATION ONLY B. COMMON BILE DUCT, BIOPSY: -BENIGN COLUMNAR MUCOSA WITH CHRONIC INFLAMMATION Ulysses Bustillos D.O. Electronically Signed Out 01/17/2024 Clinical Information Pre-Op Diagnosis: CALCULUS OF BILE [...] DUCT MICRO BIOPSIES Gross Description A. NATALEE ALCOCER, CALCULUS OF BILE DUCT WITH ACUTE AND [...] identified. Gross exam only. tm B. NATALEE ALCOCER, COMMON BILE DUCT MICRO BIOPSIES Received in formalin are three garcía-white fragments from 0.3 to 2.2 cm in length and are 2.2 x 0.4 x 0.1 cm in aggregate. Entirely 1cs. jj susan Damon/kb2:01/16/2024 Microscopic Description B. Microscopic examination performed. Processing Lab: [address] [phone] Interpretation Performed at [address] [phone] SURGICAL PATHOLOGY CONSULTATION Patient Name: NATALEE ALCOCER [facility] Rec: [id number] [employer] ANATOMIC PATHOLOGY [address] [place] [phone] [facility] Surgical Pathology Report (NOTE) Path Number: [id number] INTERPRETATION A. LYMPH NODE, DAVID HEPATIS, EUS [...] fluid. MICROSCOPIC DESCRIPTION Microscopic examination performed. Non Button Decorating Machine Operator Thin Prep x 1, Cell Block w/ MIGUEL x 1 Non Button Decorating Machine Operator Thin Prep x 1, Cell Block w/ MIGUEL x 1 Processing Lab: [address] [address] Interpretation performed at [address] [address] NONGYNECOLOGICAL CYTOPATHOLOGY CONSULTATION Patient Name: NATALEE ALCOCER [facility] Rec: [id number] [employer] ANATOMIC PATHOLOGY [address] [place] [phone] [facility] Miky 01-08-2024 [employer] Telephone ([id number]) NATALEE ALCOCER ([id number]) 1995 F Date Time Provider Department 01/08/24 SHALA PRINCE [id number] During your visit today, we recorded the following information about you: Marie Larios 01/08/2024 8:18 AM Signed Received Operative report from [facility]/ Dr. Pollock dated 11/30/2023, please review. Thank you! Allergies As of Date: 01/08/2024 Noted Allergy Reaction AMOXICILLIN 10/12/2015 4 - Hives Date Reviewed: 01/26/2021 Reviewed by: Jake Middleton (Betito) - Fully Assessed Reason for Visit: Received Outside Medical Records [[id number]] Prescriptions as of 01/12/2024 - ibuprofen (MOTRIN) 800 mg tablet Take 800 mg by mouth as needed. - cholecalciferol, vitamin D3, (VITAMIN D3 ORAL) Take 5 mg by mouth once daily. Problem List As Of Date: 01/08/2024 (None) Encounter Status:Closed by BOSTON FELDMAN on 01/12/24 [facility][id number][facility] NATALEE ALCOCER ([id number]) 1995 F Date Time Provider Department 12/29/23 SHALA PRINCE [id number] During your visit today, we recorded the following information about you: Chris Monterroso MA 12/29/2023 3:50 PM Signed Attached are Outside Records From [facility]: Allergies As of Date: 12/29/2023 Noted Allergy Reaction AMOXICILLIN 10/12/2015 4 - Hives Date Reviewed: 01/26/2021 Reviewed by: Jake Middleton) - Fully Assessed Reason for Visit: Received Outside Medical Records [[id number]] Prescriptions as of 01/04/2024 - ibuprofen (MOTRIN) 800 mg tablet Take 800 mg by mouth as needed. - cholecalciferol, vitamin D3, (VITAMIN D3 ORAL) Take 5 mg by mouth once daily. Problem List As Of Date: 12/29/2023 (None) Encounter Status:Closed by CHRIS MONTERROSO on 01/01/24 Normal [facility] Telephone ([id number]) NATALEE ALCOCER ([id number]) 1995 F Date Time Provider Department 12/29/23 SHALA PRINCE [id number] During your visit today, we recorded the following information about you: Boston Feldman 01/04/2024 10:38 AM Addendum Hepatobiliary Surgery Consult - 28 year old female with chronic biliary pancreatitis requesting second opinion - 11/30/2023 s/p salma evelina by Dr. Hui Pollock at [facility] - 12/01/2023 Presented to [facility] with intractable nausea/vomiting and abdominal pain; elevated liver enzymes and jaundice, slightly elevated WBC; transferred to [place] for concern of stone in CBD - 12/02/2023 ERCP for sphincterotomy, balloon sweep, stone and sludge removal, mid CBD stricture and stent placement - 12/13/2023 Presented to [place] [facility] for worsening RUQ/epigastric pain; elevated bilirubin and leukocytosis 30,000; transferred back to [place]; admitted for ascending cholangitis secondary to stent obstruction. - 12/13/2023 ERCP/EUS revealing distal biliary stricture and upstream CBD dilation. Patient's old biliary stent was removed and new 8 mm x 60 mm stent placed Received Records From: [facility]- [phone] -ER summary 12/01/23 and 12/13/2023 -11/02/23 CT A/p, 11/08/23 US RUQ, 12/12/23 CT A/P [facility] [phone] fx [phone] -Lap evelina operative note [facility] ph [phone] fx [phone] -12/12- Discharge Summary -12/02/23 ERCP, 12/13/23 ERCP/EUS Records Review Imagin12/12/2023 CT A/P 11/08/2023 US RUQ 11/02/2023 CT A/P Procedures: 12/13/2023 ERCP/EUS Pathology: Biospy Cytology Allergies As of Date: 12/29/2023 Noted Allergy Reaction AMOXICILLIN 10/12/2015 4 - Hives Date Reviewed: 01/26/2021 Reviewed by: Jake Middleton (Betito) - Fully Assessed Reason for Visit: New Patient [172] Hospital Admissions Officer - Other [3604] Primary Visit Diagnosis:Chronic biliary pancreatitis (HCC) [K86.1] Order(s):CONSULT FOR RAD 2ND READ [[id number]] Order #: [id number]: 1 Prescriptions as of 01/12/2024 - ibuprofen (MOTRIN) 800 mg tablet Take 800 mg by mouth as needed. - cholecalciferol, vitamin D3, (VITAMIN D3 ORAL) Take 5 mg by mouth once daily. Problem List As Of Date: 12/29/2023 (None) Encounter Status:Closed by BOSTON FELDMAN on 01/12/24 Normal [facility] METABOLIC PANE Jose 12-22-2023 Albumin [Mass/Vol] 4.9 g/dL Normal 3.2-5.3 [facility] Comment on above: Performed By: #### C YULIANA, 3040-3 #### [facility] ([id number]) [address] [place] [address] ALP [Catalytic activity/Vol] 240 U/L High 39-130 [facility] Comment on above: Performed By: #### C YULIANA, 3040-3 #### [facility] ([id number]) [address] [place] [address] ALT [Catalytic activity/Vol] 87 U/L High 0-31 [facility] Comment on above: Performed By: #### C YULIANA, 3039-3 #### [facility] ([id number]) [address] [place] [address] Anion gap [Moles/Vol] 13 mmol/L Normal 5-15 [facility] Comment on above: Performed By: #### C YULIANA, 3039-3 #### [facility] ([id number]) [address] [place] [address] AST [Catalytic activity/Vol] 23 U/L Normal 0-41 [facility] Comment on above: Performed By: #### C YULIANA, 3039-3 #### [facility] ([id number]) [address] [place] [address] Bilirubin [Mass/Vol] 1.3 mg/dL High 0.3-1.2 [facility] Comment on above: Performed By: #### Karina BRIDGES, 3039-3 #### [facility] ([id number]) [address] [place] [address] Calcium [Mass/Vol] 11.5 mg/dL High 8.5-10.5 [facility] Comment on above: Performed By: #### Karina BRIDGES, 3039-3 #### [facility] ([id number]) [address] [place] [address] Chloride [Moles/Vol] 105 mmol/L Normal 98-109 [facility] Comment on above: Performed By: #### Karina BRIDGES, 3039-3 #### [facility] ([id number]) [address] [place] [address] CO2 [Moles/Vol] 23 mmol/L Normal 22-32 [facility] Comment on above: Performed By: #### Karina BRIDGES, 3039-3 #### [facility] ([id number]) [address] [place] [address] Creatinine [Mass/Vol] 0.74 mg/dL Normal 0.40-1.00 [facility] Comment on above: Result Comment: METH OD TRACEABLE TO IDMS STANDARD Performed By: #### Karina BRIDGES, 0-3 #### [facility] ([id number]) [address] [place] [address] eGFR (CKD-EPI) NON-RACE DEPENDENT >90 Normal >59 [facility] Comment on above: Result Comment: Reported eGFR is based on the CKD-EPI 2020 equation that does not use a race coefficient. Performed By: #### C YULIANA, 3039-3 #### [facility] ([id number]) [address] [place] [address] Glucose [Mass/Vol] 68 mg/dL Normal 65-99 [facility] Comment on above: Performed By: #### Karina BRIDGES, 3039-3 #### [facility] ([id number]) [address] [place] [address] Potassium [Moles/Vol] 4.3 mmol/L Normal 3.5-5.0 [facility] Comment on above: Performed By: #### Karina BRIDGES, 3039-3 #### [facility] ([id number]) [address] [place] [address] Protein [Mass/Vol] 8.4 g/dL High 6.0-8.0 [facility] Comment on above: Performed By: #### Karina BRIDGES, 3039-3 #### [facility] ([id number]) [address] [place] [address] Sodium [Moles/Vol] 141 mmol/L Normal 134-146 [facility] Comment on above: Performed By: #### Karina BRIDGES, 3039-3 #### [facility] ([id number]) [address] [place] [address] Urea nitrogen [Mass/Vol] 19 mg/dL Normal 5-23 [facility] Comment on above: Performed By: #### C YULIANA, 3040-3 #### [facility] ([id number]) [address] [place] [address] LIPASEon 12-22-2023 Lipase [Catalytic activity/Vol] 97 U/L High 11-82 [facility] Comment on above: Performed By: #### C YULIANA, 3040-3 #### [facility] ([id number]) [address] [place] [address] CBC with Diffon 12-14-2023 Abs. Basophil <0.03 Normal 0.00-0.20 [facility] Comment on above: Performed By: #### Chelly HEWITT UAX #### [facility] [address] [facility] [place] [address] Assistant Professor In Family Studies: Emiliano Henderson MD Abs.Imm.Granulocyte 0.03 k/uL Normal 0.00-0.30 [facility] Comment on above: Performed By: #### Chelly HEWITT UAX #### [facility] [address] [facility] [place] [address] Assistant Professor In Family Studies: Emiliano Henderson MD Abs.Neutrophil (Seg) 6.31 k/uL Normal 1.50-8.10 [facility] Comment on above: Performed By: #### Chelly HEWITT UAX #### [facility] [address] [place] [address] Assistant Professor In Family Studies: Emiliano Henderson MD Basophils/100 WBC (Bld) 0 % Normal 0-2 [facility] Comment on above: Performed By: #### U MARCELINA, UAX #### [facility] [address] [place] [address] Assistant Professor In Family Studies: Emiliano Henderson MD Eosinophils (Bld) [#/Vol] 0.03 10*3/uL Normal 0.00-0.44 [facility] Comment on above: Performed By: #### U MICAO, UAX #### [facility] [address] [place] [address] Assistant Professor In Family Studies: Emiliano Henderson MD Eosinophils/100 WBC (Bld) 0 % Low 1-4 [facility] Comment on above: Performed By: #### U MICAO, UAX #### [facility] [address] [place] [address] Assistant Professor In Family Studies: Emiliano Henderson MD Erythrocyte distribution width (RBC) [Ratio] 13.7 % Normal 11.8-14.4 [facility] Comment on above: Performed By: #### U MICAO, UAX #### [facility] [address] [place] [address] Assistant Professor In Family Studies: Emiliano Henderson MD Hematocrit (Bld) [Volume fraction] 33.7 % Low 36.3-47.1 [facility] Comment on above: Performed By: #### U LEVYO, UAX #### [facility] [address] [place] [address] Assistant Professor In Family Studies: Emiliano Henderson MD Hemoglobin (Bld) [Mass/Vol] 10.8 g/dL Low 11.9-15.1 [facility] Comment on above: Performed By: #### U MICAO, UAX #### [facility] [address] [place] [address] Assistant Professor In Family Studies: Emiliano Henderson MD Immature granulocytes/100 WBC (Bld) 0 % Normal 0 [facility] Comment on above: Performed By: #### U MICAO, UAX #### [facility] [address] [place] [address] Assistant Professor In Family Studies: Emiliano Henderson MD Lymphocytes (Bld) [#/Vol] 1.03 10*3/uL Low 1.10-3.70 [facility] Comment on above: Performed By: #### Chelly HEWITT, UAX #### [facility] [address] [facility] [place] [address] Assistant Professor In Family Studies: Emiliano Henderson MD Lymphocytes/100 WBC (Bld) 13 % Low 24-43 [facility] Comment on above: Performed By: #### Chelly HEWITT UAX #### [facility] [address] [place] [address]. [place] [address] Assistant Professor In Family Studies: Emiliano Henderson MD MCH (RBC) [Entitic mass] 29.8 pg Normal 25.2-33.5 [facility] Comment on above: Performed By: #### Chelly HEWITT UAX #### [facility] [address] [place] [address]. [place] [address] Assistant Professor In Family Studies: Emiliano Henderson MD MCHC (RBC) [Mass/Vol] 32.0 g/dL Normal 28.4-34.8 [facility] Comment on above: Performed By: #### Chelly HEWITT UAX #### [facility] [address] [place] [address]. [place] [address] Assistant Professor In Family Studies: Emiliano Henderson MD MCV (RBC) [Entitic vol] 93.1 fL Normal 82.6-102.9 [facility] Comment on above: Performed By: #### Chelly HEWITT UAX #### [facility] [address] [place] [address]. [place] [address] Assistant Professor In Family Studies: Emiliano Henderson MD Monocytes (Bld) [#/Vol] 0.78 10*3/uL Normal 0.10-1.20 [facility] Comment on above: Performed By: #### U MICAO, UAX #### [facility] [address] [place] [address] Assistant Professor In Family Studies: Emiliano Henderson MD Monocytes/100 WBC (Bld) 10 % Normal 3-12 [facility] Comment on above: Performed By: #### U MICAO, UAX #### [facility] [address] [place] [address] Assistant Professor In Family Studies: Emiliano Henderson MD Neutrophil (Seg) 77 % High 36-65 [facility] Comment on above: Performed By: #### U MICAO, UAX #### [facility] [place] [address] Assistant Professor In Family Studies: Emiliano Henderson MD NRBC Automated 0.0 per 100 WBC Normal 0.0 [facility] Comment on above: Performed By: #### U MICAO, UAX #### [facility] [address] [place] [address] Assistant Professor In Family Studies: Emiliano Henderson MD Platelet mean volume (Bld) [Entitic vol] 10.3 fL Normal 8.1-13.5 [facility] Comment on above: Performed By: #### U MICAO, UAX #### [facility] [place] [address] Assistant Professor In Family Studies: Emiliano Henderson MD Platelets (Bld) [#/Vol] 282 10*3/uL Normal 138-453 [facility] Comment on above: Performed By: #### U MICAO, UAX #### [facility] [place] [address] Assistant Professor In Family Studies: Emiliano Henderson MD RBC (Bld) [#/Vol] 3.62 10*6/uL Low 3.95-5.11 [facility] Comment on above: Performed By: #### U MICAO, UAX #### [facility] [address] [place] [address] Assistant Professor In Family Studies: Emiliano Henderson MD WBC (Bld) [#/Vol] 8.2 10*3/uL Normal 3.5-11.3 [facility] Comment on above: Performed By: #### U MICAO, UAX #### [facility] [address] [place] [address] Assistant Professor In Family Studies: Emiliano Henderson MD Comp Metabolic Pr/rfx MGon 0 - Albumin [Mass/Vol] 3.4 g/dL Low 3.5-5.2 [facility] Comment on above: Performed By: #### U LEVYO, UAX #### [facility] [address] [place] [address]. [place] [address] Assistant Professor In Family Studies: Emiliano Henderson MD Alkaline Phos 459 U/L High 35-104 [facility] Comment on above: Performed By: #### U LEVYO, UAX #### [facility] [facility] [place] [address] Assistant Professor In Family Studies: Emiliano Henderson MD ALT [Catalytic activity/Vol] 501 U/L High 5-33 [facility] Comment on above: Performed By: #### U MICAO, UAX #### [facility] [address] [place] [address] Assistant Professor In Family Studies: Emiliano Henderson MD Anion gap [Moles/Vol] 11 mmol/L Normal 9-17 [facility] Comment on above: Performed By: #### U MICAO, UAX #### [facility] [address] [place] [address] Assistant Professor In Family Studies: Emiliano Henderson MD AST [Catalytic activity/Vol] 77 U/L High <32 [facility] Comment on above: Performed By: #### U MARCELINA, UAX #### [facility] [address] [place] [address] Assistant Professor In Family Studies: Emiliano Henderson MD Bilirubin [Mass/Vol] 1.1 mg/dL Normal 0.3-1.2 [facility] Comment on above: Performed By: #### U MARCELINA, UAX #### [facility] [address] [place] [address] Assistant Professor In Family Studies: Emiliano Henderson MD BUN/CRE Ratio 20 Normal 9-20 [facility] Comment on above: Performed By: #### U MARCELINA, UAX #### [facility] [address] [place] [address] Assistant Professor In Family Studies: Emiliano Henderson MD Calcium [Mass/Vol] 8.7 mg/dL Normal 8.6-10.4 [facility] Comment on above: Performed By: #### Chelly HEWITT UAX #### [facility] [address] [place] [address] Assistant Professor In Family Studies: Emiliano Henderson MD Chloride [Moles/Vol] 107 mmol/L Normal 98-107 [facility] Comment on above: Performed By: #### U MARCELINA UAX #### [facility] [address] [place] [address] Assistant Professor In Family Studies: Emiliano Henderson MD CO2 [Moles/Vol] 20 mmol/L Normal 20-31 [facility] Comment on above: Performed By: #### U LEVYO, UAX #### [facility] [address] [place] [address] Assistant Professor In Family Studies: Emiliano Henderson MD Creatinine [Mass/Vol] 0.6 mg/dL Normal 0.5-0.9 [facility] Comment on above: Performed By: #### U MARCELINA, UAX #### [facility] [address] [facility] [place] [address] Assistant Professor In Family Studies: Emiliano Henderson MD GFR/1.73 sq M.predicted among non-blacks MDRD (S/P/Bld) [Vol rate/Area] mL/min/{1.73_m2} Normal >60 [facility] Comment on above: Result Comment: These [...] renal tubular secretion. Performed By: #### U MARCELINA UAX #### [facility] [facility] [place] [address] Assistant Professor In Family Studies: Emiliano Henderson MD Glucose [Mass/Vol] 88 mg/dL Normal 70-99 [facility] Comment on above: Performed By: #### U MARCELINA UAX #### [facility] [facility] [place] [address] Assistant Professor In Family Studies: Emiliano Henderson MD Potassium [Moles/Vol] 4.5 mmol/L Normal 3.7-5.3 [facility] Comment on above: Performed By: #### U LEVYO, UAX #### [facility] [facility] [place] [address] Assistant Professor In Family Studies: Emiliano Henderson MD Protein [Mass/Vol] 6.4 g/dL Normal 6.4-8.3 [facility] Comment on above: Performed By: #### U MARCELINA, UAX #### [facility] [address] [place] [address]. [place] [address] Assistant Professor In Family Studies: Emiliano Henderson MD Sodium [Moles/Vol] 138 mmol/L Normal 135-144 [facility] Comment on above: Performed By: #### U LEVYO, UAX #### [facility] [address] [place] [address] Assistant Professor In Family Studies: Emiliano Henderson MD Urea nitrogen [Mass/Vol] 12 mg/dL Normal 6-20 [facility] Comment on above: Performed By: #### U MARCELINA, UAX #### [facility] [address] [place] [address] Assistant Professor In Family Studies: Emiliano Henderson MD Lactic Acidon 12-14-2023 Lactate [Moles/Vol] 1.1 mmol/L Normal 0.5-2.2 [facility] Comment on above: Performed By: #### U MARCELINA, UAX #### [facility] [address] [place] [address] Assistant Professor In Family Studies: Emiliano Henderson MD NA (Sodium)on 12-14-2023 Sodium [Moles/Vol] 138 mmol/L Normal 135-144 [facility] Comment on above: Performed By: #### U MARCELINA, UAX #### [facility] [address] [place] [address] Assistant Professor In Family Studies: Emiliano Henderson MD CBC with Diffon 12-13-2023 Abs. Basophil 0.00 k/uL Normal 0.0-0.2 [facility] Comment on above: Performed By: #### B C #### [facility] [address] [place] [address] Assistant Professor In Family Studies: Emiliano Henderson MD [address] [address] Assistant Professor In Family Studies: Raul Miller MD Abs.Imm.Granulocyte 0.00 k/uL Normal 0.00-0.30 [facility] Comment on above: Performed By: #### B C #### [facility] [place] [address] Assistant Professor In Family Studies: Emiliano Henderson MD [address] [address] Assistant Professor In Family Studies: Raul Miller MD Abs.Neutrophil (Seg) 9.79 k/uL High 1.8-7.7 [facility] Comment on above: Performed By: #### B C #### [facility] [address] [place] [address] Assistant Professor In Family Studies: Emiliano Henderson MD [address] [address] Assistant Professor In Family Studies: Raul Miller MD Basophils/100 WBC (Bld) 0 % Normal [facility] Comment on above: Performed By: #### B C #### [facility] [address] [place] [address] Assistant Professor In Family Studies: Emiliano Henderson MD [address] [address] Assistant Professor In Family Studies: Raul Miller MD Eosinophils (Bld) [#/Vol] 0.00 10*3/uL Normal 0.0-0.4 [facility] Comment on above: Performed By: #### B C #### [facility] [address] [place] [address] Assistant Professor In Family Studies: Emiliano Henderson MD [address] [address] Assistant Professor In Family Studies: Raul Miller MD Eosinophils/100 WBC (Bld) 0 % Low 1-4 [facility] Comment on above: Performed By: #### B C #### [facility] [address] [place] [address] Assistant Professor In Family Studies: Emiliano Henderson MD [facility] [employer] [address] [place] [address] Assistant Professor In Family Studies: Raul Miller MD Immature granulocytes/100 WBC (Bld) 0 % Normal 0 [facility] Comment on above: Performed By: #### B C #### [facility] [address] [place] [address] Assistant Professor In Family Studies: Emiliano Henderson MD [facility] [employer] [address] [place] [address] Assistant Professor In Family Studies: Raul Miller MD Lymphocytes (Bld) [#/Vol] 0.55 10*3/uL Low 1.0-4.8 [facility] Comment on above: Performed By: #### B C #### [facility] [place] [address] Assistant Professor In Family Studies: Emiliano Henderson MD [address] [address] Assistant Professor In Family Studies: Raul Miller MD Lymphocytes/100 WBC (Bld) 5 % Low 24-44 [facility] Comment on above: Performed By: #### B C #### [facility] [address] [place] [address] Assistant Professor In Family Studies: Emiliano Hendreson MD [address] [address] Assistant Professor In Family Studies: Raul Miller MD Monocytes (Bld) [#/Vol] 0.66 10*3/uL Normal 0.2-0.8 [facility] Comment on above: Performed By: #### B C #### [facility] [address] [place] [address] Assistant Professor In Family Studies: Emiliano Henderson MD [address] [address] Assistant Professor In Family Studies: Raul Miller MD Monocytes/100 WBC (Bld) 6 % Normal 1-7 [facility] Comment on above: Performed By: #### B C #### [facility] [address] [place] [address] Assistant Professor In Family Studies: Emiliano Henderson MD [address] [address] Assistant Professor In Family Studies: Raul Miller MD Neutrophil (Seg) 89 % High 36-66 [facility] Comment on above: Performed By: #### B C #### [facility] [address] [place] [address] Assistant Professor In Family Studies: Emiliano Henderson MD [address] [address] Assistant Professor In Family Studies: Raul Miller MD Erythrocyte distribution width (RBC) [Ratio] 14.5 % High 11.8-14.4 [facility] Comment on above: Performed By: #### B C #### [facility] [address] [place] [address] Assistant Professor In Family Studies: Emiliano Henderson MD [address] [address] Assistant Professor In Family Studies: Raul Miller MD Hematocrit (Bld) [Volume fraction] 32.9 % Low 36.3-47.1 [facility] Comment on above: Performed By: #### B C #### [facility] [address] [place] [address] Assistant Professor In Family Studies: Emiliano Henderson MD [address] [address] Assistant Professor In Family Studies: Raul Miller MD Hemoglobin (Bld) [Mass/Vol] 10.6 g/dL Low 11.9-15.1 [facility] Comment on above: Performed By: #### B C #### [facility] [address] [place] [address] Assistant Professor In Family Studies: Emiliano Henderson MD [address] [address] Assistant Professor In Family Studies: Raul Miller MD MCH (RBC) [Entitic mass] 30.4 pg Normal 25.2-33.5 [facility] Comment on above: Performed By: #### B C #### [facility] [address] [place] [address] Assistant Professor In Family Studies: Emiliano Henderson MD [address] [address] Assistant Professor In Family Studies: Raul Miller MD MCHC (RBC) [Mass/Vol] 32.2 g/dL Normal 28.4-34.8 [facility] Comment on above: Performed By: #### B C #### [facility] [address] [place] [address] Assistant Professor In Family Studies: Emiliano Henderson MD [address] [address] Assistant Professor In Family Studies: Raul Miller MD MCV (RBC) [Entitic vol] 94.3 fL Normal 82.6-102.9 [facility] Comment on above: Performed By: #### B C #### [facility] [address] [place] [address] Assistant Professor In Family Studies: Emiliano Henderson MD [address] [address] Assistant Professor In Family Studies: Raul Miller MD NRBC Automated 0.0 per 100 WBC Normal 0.0 [facility] Comment on above: Performed By: #### B C #### [facility] [address] [place] [address] Assistant Professor In Family Studies: Emiliano Henderson MD [address] [address] Assistant Professor In Family Studies: Raul Miller MD Platelet mean volume (Bld) [Entitic vol] 10.2 fL Normal 8.1-13.5 [facility] Comment on above: Performed By: #### B C #### [facility] [place] [address] Assistant Professor In Family Studies: Emiliano Henderson MD [address] [address] Assistant Professor In Family Studies: Raul Miller MD Platelets (Bld) [#/Vol] 256 10*3/uL Normal 138-453 [facility] Comment on above: Performed By: #### B C #### [facility] [address] [place] [address] Assistant Professor In Family Studies: Emiliano Henderson MD [address] [address] Assistant Professor In Family Studies: Raul Miller MD RBC (Bld) [#/Vol] 3.49 10*6/uL Low 3.95-5.11 [facility] Comment on above: Performed By: #### B C #### [facility] [address] [place] [address] Assistant Professor In Family Studies: Emiliano Henderson MD [address] [address] Assistant Professor In Family Studies: Raul Miller MD WBC (Bld) [#/Vol] 11.0 10*3/uL Normal 3.5-11.3 [facility] Comment on above: Performed By: #### B C #### [facility] [address] [place] [address] Assistant Professor In Family Studies: Emiliano Henderson MD [address] [address] Assistant Professor In Family Studies: Raul Miller MD Comp Metabolic Profon 2023 Albumin [Mass/Vol] 3.2 g/dL Low 3.5-5.2 [facility] Comment on above: Performed By: #### B C #### [facility] [address] [place] [address] Assistant Professor In Family Studies: Emiliano Henderson MD [address] [address] Assistant Professor In Family Studies: Raul Miller MD Alkaline Phos 510 U/L High 35-104 [facility] Comment on above: Performed By: #### B C #### [facility] [address] [place] [address] Assistant Professor In Family Studies: Emiliano Henderson MD [address] [address] Assistant Professor In Family Studies: Raul Miller MD ALT [Catalytic activity/Vol] 767 U/L High 5-33 [facility] Comment on above: Performed By: #### B C #### [facility] [address] [place] [address] Assistant Professor In Family Studies: Emiliano Henderson MD [address] [address] Assistant Professor In Family Studies: Raul Miller MD Anion gap [Moles/Vol] 11 mmol/L Normal 9-17 [facility] Comment on above: Performed By: #### B C #### [facility] [address] [place] [address] Assistant Professor In Family Studies: Emiliano Henderson MD [address] [address] Assistant Professor In Family Studies: Raul Miller MD AST [Catalytic activity/Vol] 237 U/L High <32 [facility] Comment on above: Performed By: #### B C #### [facility] [address] [place] [address] Assistant Professor In Family Studies: Emiliano Henderson MD [facility] [employer] [address] [place] [address] Assistant Professor In Family Studies: Raul Miller MD Bilirubin [Mass/Vol] 1.8 mg/dL High 0.3-1.2 [facility] Comment on above: Performed By: #### B C #### [facility] [address] [place] [address] Assistant Professor In Family Studies: Emiliano Henderson MD [facility] [employer] [address] [place] [address] Assistant Professor In Family Studies: Raul Miller MD BUN/CRE Ratio 19 Normal 9-20 [facility] Comment on above: Performed By: #### B C #### [facility] [address] [place] [address] Assistant Professor In Family Studies: Emiliano Henderson MD [address] [address] Assistant Professor In Family Studies: Raul Miller MD Calcium [Mass/Vol] 9.0 mg/dL Normal 8.6-10.4 [facility] Comment on above: Performed By: #### B C #### [facility] [address] [place] [address] Assistant Professor In Family Studies: Emiliano Henderson MD [facility] [employer] [address] [place] [address] Assistant Professor In Family Studies: Raul Miller MD Chloride [Moles/Vol] 101 mmol/L Normal 98-107 [facility] Comment on above: Performed By: #### B C #### [facility] [address] [place] [address] Assistant Professor In Family Studies: Emiliano Henderson MD [address] [address] Assistant Professor In Family Studies: Raul Miller MD CO2 [Moles/Vol] 20 mmol/L Normal 20-31 [facility] Comment on above: Performed By: #### B C #### [facility] [address] [place] [address] Assistant Professor In Family Studies: Emiliano Henderson MD [address] [address] Assistant Professor In Family Studies: Raul Miller MD Creatinine [Mass/Vol] 0.7 mg/dL Normal 0.5-0.9 [facility] Comment on above: Performed By: #### B C #### [facility] [address] [place] [address] Assistant Professor In Family Studies: Emiliano Henderson MD [address] [address] Assistant Professor In Family Studies: Raul Miller MD GFR/1.73 sq M.predicted among non-blacks MDRD (S/P/Bld) [Vol rate/Area] mL/min/{1.73_m2} Normal >60 [facility] Comment on above: Result Comment: These [...] secretion. Performed By: #### B C #### [facility] [address] [place] [address] Assistant Professor In Family Studies: Emiliano Henderson MD [address] [address] Assistant Professor In Family Studies: Raul Miller MD Glucose [Mass/Vol] 75 mg/dL Normal 70-99 [facility] Comment on above: Performed By: #### B C #### [facility] [address] [place] [address] Assistant Professor In Family Studies: Emiliano Henderson MD [address] [address] Assistant Professor In Family Studies: Raul Miller MD Potassium [Moles/Vol] 3.9 mmol/L Normal 3.7-5.3 [facility] Comment on above: Performed By: #### B C #### [facility] [address] [place] [address] Assistant Professor In Family Studies: Emiliano Henderson MD [address] [address] Assistant Professor In Family Studies: Raul Miller MD Protein [Mass/Vol] 6.4 g/dL Normal 6.4-8.3 [facility] Comment on above: Performed By: #### B C #### [facility] [address] [place] [address] Assistant Professor In Family Studies: Emiliano Henderson MD [address] [address] Assistant Professor In Family Studies: Raul Miller MD Sodium [Moles/Vol] 132 mmol/L Low 135-144 [facility] Comment on above: Performed By: #### B C #### [facility] [address] [place] [address] Assistant Professor In Family Studies: Emiliano Henderson MD [address] [address] Assistant Professor In Family Studies: Raul Miller MD Urea nitrogen [Mass/Vol] 13 mg/dL Normal 6-20 [facility] Comment on above: Performed By: #### B C #### [facility] [address] [place] [address] Assistant Professor In Family Studies: Emiliano Henderson MD [facility] [address] [place], [place] [id number] Assistant Professor In Family Studies: Raul Miller MD FLUORO FOR SURGICAL PROCEDUR ESon 12-13-2023 FLUORO FOR SURGICAL PROCEDURES Radiology exam is complete. No Radiologist dictation. Please follow up with ordering provider. Final result Normal [facility] HCG, ,Urineon 12-12 Beta HCG ( test) Ql (U) Negative Normal NEG [facility] Comment on above: Result Comment: Spec imens with hCG levels near the threshold of the test (25 mIU/mL) may give a negative or indeterminate result. In such cases, another test should be performed with a new specimen in 48-72 hours. If early is suspected clinically in this setting, correlation with quantitative serum b-hCG level is suggested. Performed By: #### U MARCELINA UAX #### [facility] [address] [facility] [place] [address] Assistant Professor In Family Studies: Emiliano Henderson MD NA (Sodium)on 12-13-2023 Sodium [Moles/Vol] 137 mmol/L Normal 135-144 [facility] Comment on above: Performed By: #### B C #### [facility] [address] [facility] [place] [address] Assistant Professor In Family Studies: Emiliano Henderson MD [facility] [place], [place] [id number] Assistant Professor In Family Studies: Raul Miller MD Sodium [Moles/Vol] 136 mmol/L Normal 135-144 [facility] Comment on above: Performed By: #### U LEVYO, UAX #### [facility] [address] [facility] [place] [address] Assistant Professor In Family Studies: Emiliano Henderson MD Sodium [Moles/Vol] 132 mmol/L Low 135-144 [facility] Comment on above: Performed By: #### B C #### [facility] [address] [place] [address] Assistant Professor In Family Studies: Emiliano Henderson MD [facility] [employer] [address] [place] [address] Assistant Professor In Family Studies: Raul Miller MD Osmolalityon 3 Osmolality [Osmolality] 282 mosm/kg Normal 275-295 [facility] Comment on above: Performed By: #### B C #### [facility] [address] [place] [address] Assistant Professor In Family Studies: Emiliano Henderosn MD [address] [address] Assistant Professor In Family Studies: Raul Miller MD Osmolality, Urineon 12-13-19 24 Osmolality - Urine 843 mOsm/kg Normal 80-1300 [facility] Comment on above: Performed By: #### U MICASameer UAX #### [facility] [address] [place] [address] Assistant Professor In Family Studies: Emiliano Henderson MD PTon 12-13-2023 INR Coag (PPP) [Relative time] 1.2 {INR} Normal [facility] Comment on above: Result Comment: Therapeutic Range: Moderate Anticoagulant Intensity: INR = 2.0-3.0 High Anticoagulant Intensity: INR = 2.5-3.5 Performed By: #### B C #### [facility] [address] [place] [address] Assistant Professor In Family Studies: Emiliano Henderson MD [address] [address] Assistant Professor In Family Studies: Raul Miller MD PT Coag (PPP) [Time] 14.8 s High 11.5-14.2 [facility] Comment on above: Performed By: #### B C #### [facility] [address] [place] [address] Assistant Professor In Family Studies: Emiliano Henderson MD [facility] [employer] [address] [place], [place] [phone] Assistant Professor In Family Studies: Raul Miller MD Sodium, Random Uron 12-13-19 24 Sodium (U) [Moles/Vol] 36 mmol/L Normal [facility] Comment on above: Result Comment: No n ormal range established. Performed By: #### U MICAO, UAX #### [facility] [address] [place], [place] [id number] Assistant Professor In Family Studies: Emiliano Henderson MD Surgical Pathology Reporton 12-13-2023 Surgical Pathology Report (NOTE) Path Number: [id number] -- Diagnosis -- A. STOMACH, BIOPSY: -MINIMAL TO MILD CHRONIC GASTRITIS -BY MIGUEL STAINING, HELICOBACTER PYLORI MICROORGANISMS ARE NOT IDENTIFIED B. STOMACH, BIOPSY: -FUNDIC GLAND POLYP C. DISTAL BILIARY STRICTURE, BIOPSY: -FRAGMENTS OF BENIGN COLUMNAR EPITHELIUM -FIBROUS CONNECTIVE TISSUE WITH ASSOCIATED INFLAMMATORY EXUDATE AND GRANULATION TISSUE -NEGATIVE FOR MALIGNANCY Ulysses Bustillos D.O. Electronically Signed Out lj/12/14/2023 Clinical Information Pre-Op Diagnosis: SEPSIS, DUE TO [...] Description A-C. Microscopic examination performed. Processing Lab: [address] [id number] Interpretation Performed at [address] [id number] SURGICAL PATHOLOGY CONSULTATION Patient Name: NATALEE ALCOCER [facility] Rec: [id number] [facility] ANATOMIC PATHOLOGY [address] [facility]. [place], [place] [address] Normal [facility] Surgical Pathology Report (NOTE) Path Number: [id number] INTERPRETATION EUS PORTAL HEPATIC LYMPH NODE BIOPSIES: [...] of bacterial colonies. No malignancy identified. Non Button Decorating Machine Operator Thin Prep x 1, Cell Block w/ MIGUEL x 1 Non Button Decorating Machine Operator Thin Prep x 1, Cell Block w/ MIGUEL x 1 Cell Block w/ MIGUEL x 1 Processing Lab: [address] [address] Interpretation performed at [address] [id number] NONGYNECOLOGICAL CYTOPATHOLOGY CONSULTATION Patient Name: NATALEE ALCOCER [facility] Rec: [id number] [facility] ANATOMIC PATHOLOGY [address] [place], [place] [address] Normal [facility] US ABDOMEN LIMITEDon 024 US ABDOMEN [...] Gavino Rosas MD 12/13/23 Final result Normal [facility] XR CHEST PORTABLEon 12-13-19 XR CHEST [...] Gael Bhatia MD 12/13/23 Final result Normal [facility] Cult,Bloodon 12-07-2023 Cult,Blood Specimen Description .BLOOD Special Requests LAC 10ML Culture NO GROWTH 5 DAYS Report Status FINAL 12/07/2023 Normal [facility] Comment on above: Performed By: #### B C #### [facility] [address] [place], [place] [id number] Assistant Professor In Family Studies: Emiliano Henderson MD [facility] [employer] [address] [place] [id number] Assistant Professor In Family Studies: Raul Miller MD Cult,Blood Specimen Description .BLOOD Special Requests LAC 10ML Culture NO GROWTH 5 DAYS Report Status FINAL 12/07/2023 Normal [facility] Comment on above: Performed By: #### B C #### [facility] [address] [place], [place] [id number] Assistant Professor In Family Studies: Emiliano Henderson MD [facility] [employer] [address] [place] [id number] Assistant Professor In Family Studies: Raul Miller MD CBCon 12-03-2023 Erythrocyte distribution width (RBC) [Ratio] 13.3 % 11.8 - 14.4 % [facility] Hematocrit (Bld) [Volume fraction] 40.1 % 36.3 - 47.1 % [facility] Hemoglobin (Bld) [Mass/Vol] 12.9 g/dL 11.9 - 15.1 g/dL [facility] Interpretation and review of laboratory results Abnormal [facility] MCH (RBC) [Entitic mass] 29.5 pg 25.2 - 33.5 pg [facility] MCHC (RBC) [Mass/Vol] 32.2 g/dL 28.4 - 34.8 g/dL [facility] MCV (RBC) [Entitic vol] 91.8 fL 82.6 - 102.9 fL [facility] Platelet mean volume (Bld) [Entitic vol] 9.7 fL 8.1 - 13.5 fL [facility] Platelets (Bld) [#/Vol] 375 10*3/uL [facility] RBC (Bld) [#/Vol] 4.37 10*6/uL 3.95 - 5.1 1 m/uL [facility] WBC other (Bld) [#/Vol] 11.4 High [facility] Erythrocyte distribution width (RBC) [Ratio] 13.3 % Normal 11.8-14.4 [facility] Comment on above: Performed By: #### U MARCELINA, UAX #### [facility] [address] [facility] [place] [address] Assistant Professor In Family Studies: Emiliano Henderson MD Hematocrit (Bld) [Volume fraction] 40.1 % Normal 36.3-47.1 [facility] Comment on above: Performed By: #### Chelly HEWITT UAX #### [facility] [address] [place] [address]. [place] [address] Assistant Professor In Family Studies: Emiliano Henderson MD Hemoglobin (Bld) [Mass/Vol] 12.9 g/dL Normal 11.9-15.1 [facility] Comment on above: Performed By: #### Chelly HEWITT UAX #### [facility] [address] [place] [address]. [place] [address] Assistant Professor In Family Studies: Emiliano Henderson MD MCH (RBC) [Entitic mass] 29.5 pg Normal 25.2-33.5 [facility] Comment on above: Performed By: #### Chelly HEWITT UAX #### [facility] [address] [place] [address]. [place] [address] Assistant Professor In Family Studies: Emiliano Henderson MD MCHC (RBC) [Mass/Vol] 32.2 g/dL Normal 28.4-34.8 [facility] Comment on above: Performed By: #### U MARCELINA UAX #### [facility] [address] [place] [address]. [place] [address] Assistant Professor In Family Studies: Emiliano Henderson MD MCV (RBC) [Entitic vol] 91.8 fL Normal 82.6-102.9 [facility] Comment on above: Performed By: #### Chelly HEWITT, UAX #### [facility] [address] [place] [address] Assistant Professor In Family Studies: Emiliano Henderson MD Platelet mean volume (Bld) [Entitic vol] 9.7 fL Normal 8.1-13.5 [facility] Comment on above: Performed By: #### U MICAO, UAX #### [facility] [address] [place] [address] Assistant Professor In Family Studies: Emiliano Henderson MD Platelets (Bld) [#/Vol] 375 10*3/uL Normal 138-453 [facility] Comment on above: Performed By: #### U MICAO, UAX #### [facility] [address] [place] [address] Assistant Professor In Family Studies: Emiliano Henderson MD RBC (Bld) [#/Vol] 4.37 10*6/uL Normal 3.95-5.11 [facility] Comment on above: Performed By: #### U LEVYO, UAX #### [facility] [address] [place] [address] Assistant Professor In Family Studies: Emiliano Henderson MD WBC (Bld) [#/Vol] 11.4 10*3/uL High 3.5-11.3 [facility] Comment on above: Performed By: #### U MICAO, UAX #### [facility] [address] [place] [address] Assistant Professor In Family Studies: Emiliano Henderson MD Comp Met+Bili/rfx MGon 12-02 Albumin [Mass/Vol] 3.9 g/dL Normal 3.5-5.2 [facility] Comment on above: Performed By: #### U MICAO, UAX #### [facility] [address] [place] [address] Assistant Professor In Family Studies: Emiliano Henderson MD Alkaline Phos 296 U/L High 35-104 [facility] Comment on above: Performed By: #### U MICAO, UAX #### [facility] [address] [place] [address] Assistant Professor In Family Studies: Emiliano Henderson MD ALT [Catalytic activity/Vol] 370 U/L High 5-33 [facility] Comment on above: Performed By: #### U MICAO, UAX #### [facility] [address] [place] [address] Assistant Professor In Family Studies: Emiliano Henderson MD Anion gap [Moles/Vol] 14 mmol/L Normal 9-17 [facility] Comment on above: Performed By: #### U LEVYO, UAX #### [facility] [address] [place] [address] Assistant Professor In Family Studies: Emiliano Henderson MD AST [Catalytic activity/Vol] 120 U/L High <32 [facility] Comment on above: Performed By: #### U MICAO, UAX #### [facility] [address] [place] [address] Assistant Professor In Family Studies: Emiliano Henderson MD Bilirubin [Mass/Vol] 3.0 mg/dL High 0.3-1.2 [facility] Comment on above: Performed By: #### U MICAO, UAX #### [facility] [address] [place] [address] Assistant Professor In Family Studies: Emiliano Henderson MD Bilirubin, Indirect 1.1 mg/dL High 0.0-1.0 [facility] Comment on above: Performed By: #### U MICAO, UAX #### [facility] [address] [place] [address] Assistant Professor In Family Studies: Emiliano Henderson MD Bilirubin.indirect [Mass/Vol] 1.9 mg/dL High <0.3 [facility] Comment on above: Performed By: #### U LEVYO, UAX #### [facility] [address] [place] [address] Assistant Professor In Family Studies: Emiliano Henderson MD Calcium [Mass/Vol] 9.5 mg/dL Normal 8.6-10.4 [facility] Comment on above: Performed By: #### U LEVYO, UAX #### [facility] [address] [place] [address] Assistant Professor In Family Studies: Emiliano Henderson MD Chloride [Moles/Vol] 103 mmol/L Normal 98-107 [facility] Comment on above: Performed By: #### U MARCELINA, UAX #### [facility] [address] [place] [address] Assistant Professor In Family Studies: Emiliano Henderson MD CO2 [Moles/Vol] 17 mmol/L Low 20-31 [facility] Comment on above: Performed By: #### U LEVYO, UAX #### [facility] [address] [place] [address] Assistant Professor In Family Studies: Emiliano Henderson MD Creatinine [Mass/Vol] 0.6 mg/dL Normal 0.5-0.9 [facility] Comment on above: Result Comment: ICTE ROSIE SPECIMEN Performed By: #### U MARCELINA, UAX #### [facility] [facility] [place] [address] Assistant Professor In Family Studies: Emiliano Henderson MD GFR/1.73 sq M.predicted among non-blacks MDRD (S/P/Bld) [Vol rate/Area] mL/min/{1.73_m2} Normal >60 [facility] Comment on above: Result Comment: These [...] Performed By: #### Chelly HEWITT UAX #### [facility] [address] [facility] [place] [address] Assistant Professor In Family Studies: Emiliano Henderson MD Glucose [Mass/Vol] 98 mg/dL Normal 70-99 [facility] Comment on above: Performed By: #### Chelly HEWITT UAX #### [facility] [address] [facility] [place] [address] Assistant Professor In Family Studies: Emiliano Henderson MD Potassium [Moles/Vol] 4.1 mmol/L Normal 3.7-5.3 [facility] Comment on above: Performed By: #### Chelly HEWITT UAX #### [facility] [address] [facility] [place] [address] Assistant Professor In Family Studies: Emiliano Henderson MD Protein [Mass/Vol] 7.3 g/dL Normal 6.4-8.3 [facility] Comment on above: Performed By: #### Chelly HEWITT, UAX #### [facility] [address] [facility] [place] [address] Assistant Professor In Family Studies: Emiliano Henderson MD Sodium [Moles/Vol] 134 mmol/L Low 135-144 [facility] Comment on above: Performed By: #### U MARCELINA, UAX #### [facility] [address] [facility] [place] [address] Assistant Professor In Family Studies: Emiliano Henderson MD Urea nitrogen [Mass/Vol] 7 mg/dL Normal 6-20 [facility] Comment on above: Performed By: #### U MICAO, UAX #### [facility] [address] [place] [address] Assistant Professor In Family Studies: Emiliano Henderson MD Comprehensive Metabolic w/ B ilir Profile w/ Reflex to MGon 12-03-2023 Albumin [Mass/Vol] 3.9 g/dL 3.5 - 5.2 g/dL [facility] ALP [Catalytic activity/Vol] 296 U/L High 35 - 104 U/L [facility] ALT [Catalytic activity/Vol] 370 U/L High 5 - 33 U/L [facility] Anion gap [Moles/Vol] 14 mmol/L 9 - 17 mmol/L [facility] AST [Catalytic activity/Vol] 120 U/L High NINF - 32 U/L [facility] Bilirubin [Mass/Vol] 3.0 mg/dL High 0.3 - 1.2 mg/dL [facility] Bilirubin.direct [Mass/Vol] 1.9 mg/dL High NINF - 0.3 mg/dL [facility] Bilirubin.indirect [Mass/Vol] 1.1 mg/dL High 0.0 - 1.0 mg/dL [facility] Calcium [Mass/Vol] 9.5 mg/dL 8.6 - 10. 4 mg/dL [facility] Chloride [Moles/Vol] 103 mmol/L 98 - 107 mmol/L [facility] CO2 [Moles/Vol] 17 mmol/L Low 20 - 31 mmol/L [facility] Creatinine [Mass/Vol] 0.6 mg/dL 0.5 - 0.9 mg/d L [facility] Comment on above: ICTERIC SPECIMEN Est, Glom Filt Rate - PINF [facility] Comment on above: These results are not [...] [Mass/Vol] 98 mg/dL 70 - 99 mg/dL [facility] Interpretation and review of laboratory results Abnormal [facility] Potassium [Moles/Vol] 4.1 mmol/L 3.7 - 5.3 mmol/L [facility] Protein [Mass/Vol] 7.3 g/dL 6.4 - 8.3 g/dL [facility] Sodium [Moles/Vol] 134 mmol/L Low 135 - 144 mmol/L [facility] Urea nitrogen [Mass/Vol] 7 mg/dL 6 - 20 mg/dL [facility] Phosphoruson 12-03-2023 Interpretation and review of laboratory results Abnormal [facility] Phosphate [Mass/Vol] 2.0 mg/dL Low 2.6 - 4.5 mg/dL [facility] Phosphorus, Inorg.on 024 Phosphorus, Inorg. 2.0 mg/dL Low 2.6-4.5 [facility] Comment on above: Performed By: #### U MICAO, UAX #### [facility] [address] [place] [address] Assistant Professor In Family Studies: Emiliano Henderson MD CBC auto differentialon 11-08 Basophils (Bld) [#/Vol] 0.05 10*3/uL [facility] Basophils/100 WBC (Bld) 0 % 0 - 2 % [facility] Eosinophils (Bld) [#/Vol] 0.03 10*3/uL [facility] Eosinophils/100 WBC (Bld) 0 % Low 1 - 4 % [facility] Erythrocyte distribution width (RBC) [Ratio] 13.5 % 11.8 - 14.4 % [facility] Hematocrit (Bld) [Volume fraction] 40.4 % 36.3 - 47.1 % [facility] Hemoglobin (Bld) [Mass/Vol] 13.1 g/dL 11.9 - 15.1 g/dL [facility] Immature granulocytes (Bld) [#/Vol] 0.10 10*3/uL [facility] Immature granulocytes/100 WBC (Bld) 1 % High 0 [facility] Interpretation and review of laboratory results Abnormal [facility] Lymphocytes/100 WBC (Bld) 14 % Low 24 - 43 % [facility] Lymphocytes/100 WBC (Bld) 1.85 % [facility] MCH (RBC) [Entitic mass] 29.6 pg 25.2 - 33.5 pg [facility] MCHC (RBC) [Mass/Vol] 32.4 g/dL 28.4 - 34.8 g/dL [facility] MCV (RBC) [Entitic vol] 91.4 fL 82.6 - 102.9 fL [facility] Monocytes/100 WBC (Bld) 7 % 3 - 12 % [facility] Monocytes/100 WBC (Bld) 0.98 % [facility] Neutrophils/100 WBC (Bld) 78 % High 36 - 65 % [facility] Nucleated RBC/100 WBC (Bld) [Ratio] 0.0 % 0.0 per 100 WBC [facility] Platelet mean volume (Bld) [Entitic vol] 9.7 fL 8.1 - 13.5 fL [facility] Platelets (Bld) [#/Vol] 352 10*3/uL [facility] RBC (Bld) [#/Vol] 4.42 10*6/uL 3.95 - 5.1 1 m/uL [facility] Segmented neutrophils/100 WBC (Bld) 10.41 % High [facility] WBC other (Bld) [#/Vol] 13.4 High [facility] CBC with Diffon 12-02-2023 Abs. Basophil 0.05 k/uL Normal 0.00-0.20 [facility] Comment on above: Performed By: #### L IP, CMPX, CDP, PT, MG, NOEL #### [facility] [address] [place] [address] Assistant Professor In Family Studies: Emiliano Henderson MD Abs.Imm.Granulocyte 0.10 k/uL Normal 0.00-0.30 [facility] Comment on above: Performed By: #### L IP, CMPX, CDP, PT, MG, NOEL #### [facility] [address] [place] [address] Assistant Professor In Family Studies: Emiliano Henderson MD Abs.Neutrophil (Seg) 10.41 k/uL High 1.50-8.10 [facility] Comment on above: Performed By: #### L IP, CMPX, CDP, PT, MG, NOEL #### [facility] [address] [place] [address] Assistant Professor In Family Studies: Emiliano Henderson MD Basophils/100 WBC (Bld) 0 % Normal 0-2 [facility] Comment on above: Performed By: #### L IP, CMPX, CDP, PT, MG, NOEL #### [facility] [address] [place] [address] Assistant Professor In Family Studies: Emiliano Henderson MD Eosinophils (Bld) [#/Vol] 0.03 10*3/uL Normal 0.00-0.44 [facility] Comment on above: Performed By: #### L IP, CMPX, CDP, PT, MG, NOEL #### [facility] [address] [place] [address] Assistant Professor In Family Studies: Emiliano Henderson MD Eosinophils/100 WBC (Bld) 0 % Low 1-4 [facility] Comment on above: Performed By: #### L IP, CMPX, CDP, PT, MG, NOEL #### [facility] [address] [place] [address] Assistant Professor In Family Studies: Emiliano Henderson MD Erythrocyte distribution width (RBC) [Ratio] 13.5 % Normal 11.8-14.4 [facility] Comment on above: Performed By: #### L IP, CMPX, CDP, PT, MG, NOEL #### [facility] [address] [place] [address] Assistant Professor In Family Studies: Emiliano Henderson MD Hematocrit (Bld) [Volume fraction] 40.4 % Normal 36.3-47.1 [facility] Comment on above: Performed By: #### L IP, CMPX, CDP, PT, MG, NOEL #### [facility] [address] [place] [address] Assistant Professor In Family Studies: Emiliano Henderson MD Hemoglobin (Bld) [Mass/Vol] 13.1 g/dL Normal 11.9-15.1 [facility] Comment on above: Performed By: #### L IP, CMPX, CDP, PT, MG, NOEL #### [facility] [address] [place] [address] Assistant Professor In Family Studies: Emiliano Henderson MD Immature granulocytes/100 WBC (Bld) 1 % High 0 [facility] Comment on above: Performed By: #### L IP, CMPX, CDP, PT, MG, NOEL #### [facility] [address] [place] [address] Assistant Professor In Family Studies: Emiliano Henderson MD Lymphocytes (Bld) [#/Vol] 1.85 10*3/uL Normal 1.10-3.70 [facility] Comment on above: Performed By: #### L IP, CMPX, CDP, PT, MG, NOEL #### [facility] [address] [place] [address] Assistant Professor In Family Studies: Emiliano Henderson MD Lymphocytes/100 WBC (Bld) 14 % Low 24-43 [facility] Comment on above: Performed By: #### L IP, CMPX, CDP, PT, MG, NOEL #### [facility] [address] [place], [place] [address]ia [facility] [place] [address] Assistant Professor In Family Studies: Emiliano Henderson MD MCH (RBC) [Entitic mass] 29.6 pg Normal 25.2-33.5 [facility] Comment on above: Performed By: #### L IP, CMPX, CDP, PT, MG, NOEL #### [facility] [address] [place], [place] [address]ia [facility] [place] [address] Assistant Professor In Family Studies: Emiliano Henderson MD MCHC (RBC) [Mass/Vol] 32.4 g/dL Normal 28.4-34.8 [facility] Comment on above: Performed By: #### L IP, CMPX, CDP, PT, MG, NOEL #### [facility] [address] [place] [address]. [place] [address] Assistant Professor In Family Studies: Emiliano Henderson MD MCV (RBC) [Entitic vol] 91.4 fL Normal 82.6-102.9 [facility] Comment on above: Performed By: #### L IP, CMPX, CDP, PT, MG, NOEL #### [facility] [address] [place] [address]. [place] [address] Assistant Professor In Family Studies: Emiliano Henderson MD Monocytes (Bld) [#/Vol] 0.98 10*3/uL Normal 0.10-1.20 [facility] Comment on above: Performed By: #### L IP, CMPX, CDP, PT, MG, NOEL #### [facility] [address] [place] [address]. [place] [address] Assistant Professor In Family Studies: Emiliano Henderson MD Monocytes/100 WBC (Bld) 7 % Normal 3-12 [facility] Comment on above: Performed By: #### L IP, CMPX, CDP, PT, MG, NOEL #### [facility] [address] [place] [address] Assistant Professor In Family Studies: Emiliano Henderson MD Neutrophil (Seg) 78 % High 36-65 [facility] Comment on above: Performed By: #### L IP, CMPX, CDP, PT, MG, NOEL #### [facility] [facility] [place] [address] Assistant Professor In Family Studies: Emiliano Henderson MD NRBC Automated 0.0 per 100 WBC Normal 0.0 [facility] Comment on above: Performed By: #### L IP, CMPX, CDP, PT, MG, NOEL #### [facility] [address] [place] [address]. [place] [address] Assistant Professor In Family Studies: Emiliano Henderson MD Platelet mean volume (Bld) [Entitic vol] 9.7 fL Normal 8.1-13.5 [facility] Comment on above: Performed By: #### L IP, CMPX, CDP, PT, MG, NOEL #### [facility] [address] [place] [address] Assistant Professor In Family Studies: Emiliano Henderson MD Platelets (Bld) [#/Vol] 352 10*3/uL Normal 138-453 [facility] Comment on above: Performed By: #### L IP, CMPX, CDP, PT, MG, NOEL #### [facility] [address] [place] [address]. [place] [address] Assistant Professor In Family Studies: Emiliano Henderson MD RBC (Bld) [#/Vol] 4.42 10*6/uL Normal 3.95-5.11 [facility] Comment on above: Performed By: #### L IP, CMPX, CDP, PT, MG, NOEL #### [facility] [address] [place] [address] Assistant Professor In Family Studies: Emiliano Henderson MD WBC (Bld) [#/Vol] 13.4 10*3/uL High 3.5-11.3 [facility] Comment on above: Performed By: #### L IP, CMPX, CDP, PT, MG, NOEL #### [facility] [address] [place] [address] Assistant Professor In Family Studies: Emiliano Henderson MD Comp Metabolic Pr/rfx MGon 0 --2023 Albumin [Mass/Vol] 4.1 g/dL Normal 3.5-5.2 [facility] Comment on above: Performed By: #### L IP, CMPX, CDP, PT, MG, NOEL #### [facility] [address] [place] [address] Assistant Professor In Family Studies: Emiliano Henderson MD Alkaline Phos 269 U/L High 35-104 [facility] Comment on above: Performed By: #### L IP, CMPX, CDP, PT, MG, NOEL #### [facility] [address] [place] [address] Assistant Professor In Family Studies: Emiliano Henderson MD ALT [Catalytic activity/Vol] 352 U/L High 5-33 [facility] Comment on above: Performed By: #### L IP, CMPX, CDP, PT, MG, NOEL #### [facility] [address] [place] [address] Assistant Professor In Family Studies: Emiliano Henderson MD Anion gap [Moles/Vol] 19 mmol/L High 9-17 [facility] Comment on above: Performed By: #### L IP, CMPX, CDP, PT, MG, NOEL #### [facility] [address] [place] [address] Assistant Professor In Family Studies: Emiliano Henderson MD AST [Catalytic activity/Vol] 108 U/L High <32 [facility] Comment on above: Performed By: #### L IP, CMPX, CDP, PT, MG, NOEL #### [facility] [address] [place], [place] [address]ia [facility] [place] [address] Assistant Professor In Family Studies: Emiliano Henderson MD Bilirubin [Mass/Vol] 5.9 mg/dL High 0.3-1.2 [facility] Comment on above: Performed By: #### L IP, CMPX, CDP, PT, MG, NEOL #### [facility] [address] [place] [address]. [place] [address] Assistant Professor In Family Studies: Emiliano Henderson MD BUN/CRE Ratio 10 Normal 9-20 [facility] Comment on above: Performed By: #### L IP, CMPX, CDP, PT, MG, NOEL #### [facility] [address] [place] [address] Assistant Professor In Family Studies: Emiliano Henderson MD Calcium [Mass/Vol] 9.2 mg/dL Normal 8.6-10.4 [facility] Comment on above: Performed By: #### L IP, CMPX, CDP, PT, MG, NOEL #### [facility] [address] [place] [address] Assistant Professor In Family Studies: Emiliano Henderson MD Chloride [Moles/Vol] 103 mmol/L Normal 98-107 [facility] Comment on above: Performed By: #### L IP, CMPX, CDP, PT, MG, NOEL #### [facility] [address] [place] [address] Assistant Professor In Family Studies: Emiliano Henderson MD CO2 [Moles/Vol] 12 mmol/L Low 20-31 [facility] Comment on above: Performed By: #### L IP, CMPX, CDP, PT, MG, NOEL #### [facility] [address] [place] [address] Assistant Professor In Family Studies: Emiliano Henderson MD Creatinine [Mass/Vol] 0.6 mg/dL Normal 0.5-0.9 [facility] Comment on above: Result Comment: ICTE ROSIE SPECIMEN Performed By: #### L IP, CMPX, CDP, PT, MG, NOEL #### [facility] [address] [facility] [place] [address] Assistant Professor In Family Studies: Emiliano Henderson MD GFR/1.73 sq M.predicted among non-blacks MDRD (S/P/Bld) [Vol rate/Area] mL/min/{1.73_m2} Normal >60 [facility] Comment on above: Result Comment: These [...] IP, CMPX, CDP, PT, MG, NOEL #### [facility] [address] [facility] [place], [place] [id number] Assistant Professor In Family Studies: Emiliano Henderson MD Glucose [Mass/Vol] 65 mg/dL Low 70-99 [facility] Comment on above: Performed By: #### L IP, CMPX, CDP, PT, MG, NOEL #### [facility] [address] [facility] [place] [address] Assistant Professor In Family Studies: Emiliano Henderson MD Potassium [Moles/Vol] 4.3 mmol/L Normal 3.7-5.3 [facility] Comment on above: Performed By: #### L IP, CMPX, CDP, PT, MG, NOEL #### [facility] [address] [facility] [place], [place] [id number] Assistant Professor In Family Studies: Emiliano Henderson MD Protein [Mass/Vol] 7.4 g/dL Normal 6.4-8.3 [facility] Comment on above: Performed By: #### L IP, CMPX, CDP, PT, MG, NOEL #### [facility] [address] [facility] [place], [place] [id number] Assistant Professor In Family Studies: Emiliano Henderson MD Sodium [Moles/Vol] 134 mmol/L Low 135-144 [facility] Comment on above: Performed By: #### L IP, CMPX, CDP, PT, MG, NOEL #### [facility] [address] [place], [place] [id number] Assistant Professor In Family Studies: Emiliano Henderson MD Urea nitrogen [Mass/Vol] 6 mg/dL Normal 6-20 [facility] Comment on above: Performed By: #### L IP, CMPX, CDP, PT, MG, NOEL #### [facility] [address] [place], [place] [id number] Assistant Professor In Family Studies: Emiliano Henderson MD Comprehensive Metabolic Pane l w/ Reflex to MGon 12-02-2023 Albumin [Mass/Vol] 4.1 g/dL 3.5 - 5.2 g/dL [facility] ALP [Catalytic activity/Vol] 269 U/L High 35 - 104 U/L [facility] ALT [Catalytic activity/Vol] 352 U/L High 5 - 33 U/L [facility] Anion gap [Moles/Vol] 19 mmol/L High 9 - 17 mmol/L [facility] AST [Catalytic activity/Vol] 108 U/L High NINF - 32 U/L [facility] Bilirubin [Mass/Vol] 5.9 mg/dL High 0.3 - 1.2 mg/dL [facility] Calcium [Mass/Vol] 9.2 mg/dL 8.6 - 10. 4 mg/dL [facility] Chloride [Moles/Vol] 103 mmol/L 98 - 107 mmol/L [facility] CO2 [Moles/Vol] 12 mmol/L Low 20 - 31 mmol/L [facility] Creatinine [Mass/Vol] 0.6 mg/dL 0.5 - 0.9 mg/d L [facility] Comment on above: ICTERIC SPECIMEN Est, Glom Filt Rate - PINF [facility] Comment on above: These results are not [...] 65 mg/dL Low 70 - 99 mg/dL [facility] Potassium [Moles/Vol] 4.3 mmol/L 3.7 - 5.3 mmol/L [facility] Protein [Mass/Vol] 7.4 g/dL 6.4 - 8.3 g/dL [facility] Sodium [Moles/Vol] 134 mmol/L Low 135 - 144 mmol/L [facility] Urea nitrogen [Mass/Vol] 6 mg/dL 6 - 20 mg/dL [facility] Urea nitrogen/Creatinine [Mass ratio] 10 mg/mg 9 - 20 [facility] FLUORO FOR SURGICAL PROCEDUR ESon 12-02-2023 FLUORO FOR SURGICAL PROCEDURES Radiology exam is complete. No Radiologist dictation. Please follow up with ordering provider. Final result Normal [facility] Guidance-- during surgeryon 12-02-2023 Radiology exam is complete. No Radiologist dictation. Please follow up with ordering provider. PN RIS CONSOLIDATED Lipaseon 12-02-2023 Lipase [Catalytic activity/Vol] 49 U/L 13 - 60 U/L [facility] Lipase [Catalytic activity/Vol] 49 U/L Normal 13-60 [facility] Comment on above: Performed By: #### L IP, CMPX, CDP, PT, MG, NOEL #### [facility] [address] [place] [address] Assistant Professor In Family Studies: Emiliano Henderson MD Magnesiumon 12-02-2023 Magnesium [Mass/Vol] 1.9 mg/dL 1.6 - 2.6 mg/dL [facility] Magnesium [Mass/Vol] 1.9 mg/dL Normal 1.6-2.6 [facility] Comment on above: Performed By: #### L IP, CMPX, CDP, PT, MG, NOEL #### [facility] [place], [place] [id number] Assistant Professor In Family Studies: Emiliano Henderson MD Microscopic Urinalysison Bacteria LM Ql (Urine sed) RARE Abnormal None [facility] Epithelial cells LM.HPF (Urine sed) [#/Area] 0 TO 2 [facility] Interpretation and review of laboratory results Abnormal [facility] RBC LM.HPF (Urine sed) [#/Area] None [facility] WBC LM.HPF (Urine sed) [#/Area] None [facility] No Panel Informationon 12-01 Interpretation and review of laboratory results Abnormal [facility] PTon 12-02-2023 INR Coag (PPP) [Relative time] 1.1 {INR} Normal [facility] Comment on above: Result Comment: Therapeutic Range: Moderate Anticoagulant Intensity: INR = 2.0-3.0 High Anticoagulant Intensity: INR = 2.5-3.5 Performed By: #### L IP, CMPX, CDP, PT, MG, NOEL #### [facility] [address] [place] [address]. [place] [address] Assistant Professor In Family Studies: Emiliano Henderson MD PT Coag (PPP) [Time] 14.0 s Normal 11.5-14.2 [facility] Comment on above: Performed By: #### L IP, CMPX, CDP, PT, MG, NOEL #### [facility] [address] [place] [id number] Assistant Professor In Family Studies: Emiliano Henderson MD Phosphoruson 12-02-2023 Phosphate [Mass/Vol] 1.5 mg/dL Low 2.6 - 4.5 mg/dL [facility] Phosphorus, Inorg.on 024 Phosphorus, Inorg. 1.5 mg/dL Low 2.6-4.5 [facility] Comment on above: Performed By: #### L IP, CMPX, CDP, PT, MG, NOEL #### [facility] [address] [facility] [place], [place] [id number] Assistant Professor In Family Studies: Emiliano Henderson MD Protime-INRon 12-02-2023 INR Coag (PPP) [Relative time] 1.1 {INR} [facility] Comment on above: Therapeutic Range: Moderate Anticoagulant Intensity: INR = 2.0-3.0 High Anticoagulant Intensity: INR = 2.5-3.5 PT Coag (PPP) [Time] 14.0 s [facility] UA w/Reflex Cultureon 2023 Bilirubin, SemiQt,Ur Presumptive positiv e. Unable to confirm due to unavailability of reagent. Abnormal NEG [facility] Comment on above: Performed By: #### U MICAO, UAX #### [facility] [facility] [place] [address] Assistant Professor In Family Studies: Emiliano Henderson MD Blood, Urine Negative Normal NEG [facility] Comment on above: Performed By: #### U MICAO, UAX #### [facility] [address] [place] [address]. [place], [place] [id number] Assistant Professor In Family Studies: Emiliano Henderson MD Clarity (U) Clear Normal CLEAR [facility] Comment on above: Performed By: #### U MICAO, UAX #### [facility] [address] [place] [address]. [place], [place] [id number] Assistant Professor In Family Studies: Emiliano Henderson MD Color (U) Yellow Normal YEL [facility] Comment on above: Performed By: #### U MICAO, UAX #### [facility] [address] [place] [address] [place] [address] Assistant Professor In Family Studies: Emiliano Henderson MD Glucose Ql (U) Negative Normal NEG [facility] Comment on above: Performed By: #### U MICAO, UAX #### [facility] [place] [address] Assistant Professor In Family Studies: Emiliano Henderson MD Ketones Ql (U) 3+ mg/dL Abnormal NEG [facility] Comment on above: Performed By: #### U MICAO, UAX #### [facility] [address] [place] [address]. [place] [address] Assistant Professor In Family Studies: Emiliano Henderson MD Leukocyte esterase Test strip Ql (U) Negative Normal NEG [facility] Comment on above: Performed By: #### U MICAO, UAX #### [facility] [address] [place] [address]. [place] [address] Assistant Professor In Family Studies: Emiliano Henderson MD Nitrite,Ur Negative Normal NEG [facility] Comment on above: Performed By: #### U MICAO, UAX #### [facility] [address] [place] [address]. [place] [address] Assistant Professor In Family Studies: Emiliano Henderson MD PH,Ur 5.5 Normal 5.0-8.0 [facility] Comment on above: Performed By: #### U MICAO, UAX #### [facility] [place] [address] Assistant Professor In Family Studies: Emiliano Henderson MD Protein Ql (U) TRACE Abnormal NEG [facility] Comment on above: Performed By: #### U MICAO, UAX #### [facility] [address] [place] [address]. [place] [address] Assistant Professor In Family Studies: Emiliano Henderson MD Spec. [place],Ur 1.024 Normal 1.005-1.030 [facility] Comment on above: Performed By: #### U MARCELINA, UAX #### [facility] [address] [facility]. [place], [place] [id number] Assistant Professor In Family Studies: Emiliano Henderson MD Urobilinogen,Ur Normal Normal 0.0-1.0 [facility] Comment on above: Performed By: #### U LEVYO, UAX #### [facility] [address] [facility]. [place], [place] [id number] Assistant Professor In Family Studies: Emiliano Henderson MD Urinalysis with Reflex to Cu ltureon 12-02-2023 Bilirubin Ql (U) Presumptive positive . Unable to confirm due to unavailability of reagent. Abnormal NEGATIVE [facility] Clarity (U) Clear Clear [facility] Color (U) Yellow Yellow [facility] Glucose Test strip (U) [Mass/Vol] Negative NEGATIVE mg/dL [facility] Hemoglobin Auto test strip Ql (U) Negative NEGATIVE [facility] Interpretation and review of laboratory results Abnormal [facility] Ketones (U) [Mass/Vol] 3+ Abnormal NEGATIVE mg/dL [facility] Leukocyte esterase Test strip Ql (U) Negative NEGATIVE [facility] Nitrite Ql (U) Negative NEGATIVE [facility] pH (U) 5.5 [pH] 5.0 - 8.0 [facility] Protein (U) [Mass/Vol] TRACE Abnormal NEGATIVE mg/dL [facility] Specific gravity (U) [Rel density] 1.024 1.005 - 1.030 [facility] Urobilinogen Qn (U) Normal 0.0 - 1.0 EU/dL [facility] Urinalysis,Microon 4 Bacteria RARE Abnormal NONE [facility] Comment on above: Performed By: #### U LEVYO, UAX #### [facility] [address] [facility] [place] [address] Assistant Professor In Family Studies: Emiliano Henderson MD Epithelial cells LM Ql (Urine sed) 0 TO 2 Normal 0-5 [facility] Comment on above: Performed By: #### U MICAO, UAX #### [facility] [address] [facility]. [place], [place] [phone] Assistant Professor In Family Studies: Emiliano Henderson MD Urine RBC's None Normal 0-2 [facility] Comment on above: Performed By: #### U MICAO, UAX #### [facility] [address] [facility]. [place], [place] [phone] Assistant Professor In Family Studies: Emiliano Henderson MD Urine WBC's None Normal 0-5 [facility] Comment on above: Performed By: #### U MICAO, UAX #### [facility] [address] [facility]. [place], [place] [id number] Assistant Professor In Family Studies: Emiliano Henderson MD CBCon 12-01-2023 Erythrocyte distribution width (RBC) [Ratio] 13.3 % 11.8 - 14.4 % [facility] Hematocrit (Bld) [Volume fraction] 42.9 % 36.3 - 47.1 % [facility] Hemoglobin (Bld) [Mass/Vol] 13.7 g/dL 11.9 - 15.1 g/dL [facility] Interpretation and review of laboratory results Abnormal [facility] MCH (RBC) [Entitic mass] 29.8 pg 25.2 - 33.5 pg [facility] MCHC (RBC) [Mass/Vol] 31.9 g/dL 28.4 - 34.8 g/dL [facility] MCV (RBC) [Entitic vol] 93.3 fL 82.6 - 102.9 fL [facility] Nucleated RBC/100 WBC (Bld) [Ratio] 0.0 % 0.0 per 100 WBC [facility] Platelet mean volume (Bld) [Entitic vol] 9.6 fL 8.1 - 13.5 fL [facility] Platelets (Bld) [#/Vol] 323 10*3/uL [facility] RBC (Bld) [#/Vol] 4.60 10*6/uL 3.95 - 5.1 1 m/uL [facility] WBC other (Bld) [#/Vol] 14.2 High [facility] Erythrocyte distribution width (RBC) [Ratio] 13.3 % Normal 11.8-14.4 [facility] Comment on above: Performed By: #### U LEVYO, UAX #### [facility] [facility] [place] [address] Assistant Professor In Family Studies: Emiliano Henderson MD Hematocrit (Bld) [Volume fraction] 42.9 % Normal 36.3-47.1 [facility] Comment on above: Performed By: #### U MARCELINA, UAX #### [facility] [address] [place] [address]. [place] [address] Assistant Professor In Family Studies: Emiliano Henderson MD Hemoglobin (Bld) [Mass/Vol] 13.7 g/dL Normal 11.9-15.1 [facility] Comment on above: Performed By: #### U MARCELINA, UAX #### [facility] [address] [place] [address]. [place] [address] Assistant Professor In Family Studies: Emiliano Henderson MD MCH (RBC) [Entitic mass] 29.8 pg Normal 25.2-33.5 [facility] Comment on above: Performed By: #### U LEVYO, UAX #### [facility] [address] [place], [place] [address]ia [facility] [place] [address] Assistant Professor In Family Studies: Emiliano Henderson MD MCHC (RBC) [Mass/Vol] 31.9 g/dL Normal 28.4-34.8 [facility] Comment on above: Performed By: #### U LEVYO, UAX #### [facility] [address] [place] [address]. [place] [address] Assistant Professor In Family Studies: Emiliano Henderson MD MCV (RBC) [Entitic vol] 93.3 fL Normal 82.6-102.9 [facility] Comment on above: Performed By: #### U LEVYO, UAX #### [facility] [address] [place], [place] [address]ia [facility] [place] [address] Assistant Professor In Family Studies: Emiliano Henderson MD NRBC Automated 0.0 per 100 WBC Normal 0.0 [facility] Comment on above: Performed By: #### U LEVYO, UAX #### [facility] [address] [place] [address]. [place] [address] Assistant Professor In Family Studies: Emiliano Henderson MD Platelet mean volume (Bld) [Entitic vol] 9.6 fL Normal 8.1-13.5 [facility] Comment on above: Performed By: #### U MARCELINA, UAX #### [facility] [address] [place], [place] [address]ia [facility] [place] [address] Assistant Professor In Family Studies: Emiliano Henderson MD Platelets (Bld) [#/Vol] 323 10*3/uL Normal 138-453 [facility] Comment on above: Performed By: #### U MARCELINA, UAX #### [facility] [address] [place], [place] [address]ia [facility] [place] [address] Assistant Professor In Family Studies: Emiliano Henderson MD RBC (Bld) [#/Vol] 4.60 10*6/uL Normal 3.95-5.11 [facility] Comment on above: Performed By: #### U MARCELINA, UAX #### [facility] [address] [place], [place] [address]ia [facility] [place] [address] Assistant Professor In Family Studies: Emiliano Henderson MD WBC (Bld) [#/Vol] 14.2 10*3/uL High 3.5-11.3 [facility] Comment on above: Performed By: #### U HARIKA HEWITT #### [facility] [address] [place] [address] Assistant Professor In Family Studies: MD Michael Burnettitonvalentine 12-01-2023 Interpretation and review of laboratory results Abnormal [facility] Procalcitonin [Mass/Vol] 0.14 ng/mL High 0.00 - 0.09 ng/mL [facility] Comment on above: Suspected Sepsis: <0.50 ng/mL [...] entered into the Change in Procalcitonin Calculator (www.ybgsly-zvf-jacpyiczme.com) to determine the patient's Mortality Risk Prognosis In healthy neonates, plasma Procalcitonin (PCT) concentrations increase gradually after , reaching peak values at about 24 hours of age then decrease to normal values below 0.5 ng/mL by 48-72 hours of age. [facility] Procalcitonin 0.14 ng/mL High 0.00-0.09 [facility] Comment on above: Result Comment: Suspected [...] entered into the Change in Procalcitonin Calculator (www.cbthpd-tuu-kzhwagslgs.com) to determine the patient's Mortality Risk Prognosis In healthy neonates, plasma Procalcitonin (PCT) concentrations increase gradually after , reaching peak values at about 24 hours of age then decrease to normal values below 0.5 ng/mL by 48-72 hours of age. Performed By: #### U MICAO, UAX #### [facility] [address] [facility] [place] [address] Assistant Professor In Family Studies: Emiliano Henderson MD HCG ( test) Ql (U)o n 11-30-2023 Beta HCG ( test) Ql (U) Negative Normal NEG [facility] Comment on above: Performed By: #### 2 106-3 #### [facility] ([id number]) [address] [place] [address], [place] [address] Surgical Pathologyon 024 Surgical Pathology Normal [facility] Comment on above: Result Comment: [facility] [address] [place] [address] Surgical Pathology Consultation Patient Name:NATALEE ALCOCER:1995 (Age: 28)Gender:FTaken:4Reported:12/05/2023hysician(s):Hui Pollock D.O. ([phone])Copy To: Rec. #:[id number]: #[id number] Final Pathologic Diagnosis Gallbladder, cholecystectomy: Cholesterolosis. Cholelithiasis. Benign lymph node. Report Electronically Signed Out nxk/12/05/2023Paolo Dc MD Interpretation performed at [facility] [employer], [address] [place] [address], License number: [id number]. Clinical History Cholelithiasis, chronic cholecystitis. Gross Description [...] from 0.1 to 0.3 cm in thickness. Speech Therapy Teacher sections of the gallbladder are submitted in cassette B. (2, ss, [id number], A???B, m2) [facility]/01/[facility]23SS Specimen(s) Received Gallbladder Fee Codes(s): 1; 63657 COMPLETE BLOOD COUNTon 11-28 Erythrocyte distribution width (RBC) [Ratio] 13.0 % Normal 11.5-15.0 [facility] Comment on above: Performed By: #### C JAYSHREE [facility], 3040-3 #### [facility] ([id number]) [address] [address] [place] [address] Hematocrit (Bld) [Volume fraction] 39.5 % Normal 35-47 [facility] Comment on above: Performed By: #### Karina MARTELL [facility], 3040-3 #### [facility] ([id number]) [address] [address] [place] [address] Hemoglobin (Bld) [Mass/Vol] 13.2 g/dL Normal 11.7-15.5 [facility] Comment on above: Performed By: #### Karina MARTELL [facility], 3040-3 #### [facility] ([id number]) [address] [place] [address] MCH (RBC) [Entitic mass] 29.7 pg Normal 27-34 [facility] Comment on above: Performed By: #### Karina MARTELL CMP, 3040-3 #### [facility] ([id number]) [address], [facility] [address] [place] [address] MCHC (RBC) [Mass/Vol] 33.5 g/dL Normal 32-[address] [facility] Comment on above: Performed By: #### Karina MARTELL CMP, 3039-3 #### [facility] ([id number]) [address] [address] [place] [address] MCV (RBC) [Entitic vol] 89 fL Normal 80-100 [facility] Comment on above: Performed By: #### Karina MARTELL CMP, 0-3 #### [facility] ([id number]) [address], [facility] [address] [place] [address] Platelet mean volume (Bld) [Entitic vol] 8.5 fL Normal 7-12 [facility] Comment on above: Performed By: #### Karina MARTELL CMP, 0-3 #### [facility] ([id number]) [address] [address] [place] [address] Platelets (Bld) [#/Vol] 346 10*3/uL Normal 150-450 [facility] Comment on above: Performed By: #### Karina MARTELL CMP, 0-3 #### [facility] ([id number]) [address] [address] [place] [address] RBC COUNT 4.44 X10E12/L Normal 3.80-5.20 [facility] Comment on above: Performed By: #### Karina MARTELL CMP, 0-3 #### [facility] ([id number]) [address] [address] [place] [address] WBC (Bld) [#/Vol] 11.5 10*3/uL High 4.0-11.0 [facility] Comment on above: Performed By: #### Karina MARTELL CMP, 3040-3 #### [facility] ([id number]) [address], [address] [place] [address] COMPREHENSIVE METABOLIC PANE Jose 11-29-2023 Albumin [Mass/Vol] 4.6 g/dL Normal 3.2-5.3 [facility] Comment on above: Performed By: #### Karina MARTELL CMP, 0-3 #### [facility] ([id number]) [address], [address] [place] [address] ALP [Catalytic activity/Vol] 176 U/L High 39-130 [facility] Comment on above: Performed By: #### Karina MARTELL CMP, 0-3 #### [facility] ([id number]) [address], [address] [place] [address] ALT [Catalytic activity/Vol] 487 U/L High 0-31 [facility] Comment on above: Performed By: #### Karina MARTELL CMP, 3040-3 #### [facility] ([id number]) [address], [address] [place] [address] Anion gap [Moles/Vol] 17 mmol/L High 5-[address] [facility] Comment on above: Performed By: #### Karina MARTELL CMP, 3040-3 #### [facility] ([id number]) [address], [address] [place] [address] AST [Catalytic activity/Vol] 172 U/L High 0-41 [facility] Comment on above: Performed By: #### Karina MARTELL CMP, 3040-3 #### [facility] ([id number]) [address], [address] [place] [address] Bilirubin [Mass/Vol] 3.8 mg/dL High 0.3-1.2 [facility] Comment on above: Performed By: #### Karina MARTELL CMP, 0-3 #### [facility] ([id number]) [address], [address] [place] [address] Calcium [Mass/Vol] 9.6 mg/dL Normal 8.5-10.5 [facility] Comment on above: Performed By: #### Karina MARTELL CMP, 3039-3 #### [facility] ([id number]) [address], [address] [place] [address] Chloride [Moles/Vol] 99 mmol/L Normal 98-109 [facility] Comment on above: Performed By: #### Karina MARTELL CMP, 3039-3 #### [facility] ([id number]) [address], [address] [place] [address] CO2 [Moles/Vol] 18 mmol/L Low 22-32 [facility] Comment on above: Performed By: #### Karina MARTELL CMP, 3039-3 #### [facility] ([id number]) [address] [address] [place] [address] Creatinine [Mass/Vol] 0.80 mg/dL Normal 0.40-1.[address] [facility] Comment on above: Result Comment: METH OD TRACEABLE TO IDMS STANDARD Performed By: #### Karina MARTELL CMP, 0-3 #### [facility] ([id number]) [address] [address] [place] [address] eGFR (CKD-EPI) NON-RACE DEPENDENT >90 Normal >59 [facility] Comment on above: Result Comment: Reported eGFR is based on the CKD-EPI 2020 equation that does not use a race coefficient. Performed By: #### Karina MARTELL CMP, 3039-3 #### [facility] ([id number]) [address], [address] [place] [address] Glucose [Mass/Vol] 70 mg/dL Normal 65-99 [facility] Comment on above: Performed By: #### Karian MARTELL CMP, 3039-3 #### [facility] ([id number]) [address], [address] [place] [address] Potassium [Moles/Vol] 4.1 mmol/L Normal 3.5-5.[address] [facility] Comment on above: Performed By: #### Karina MARTELL CMP, 3040-3 #### [facility] ([id number]) [address], [address] [place] [address] Protein [Mass/Vol] 7.8 g/dL Normal 6.0-8.0 [facility] Comment on above: Performed By: #### Karina MARTELL CMP, 3040-3 #### [facility] ([id number]) [address], [address] [place] [address] Sodium [Moles/Vol] 134 mmol/L Normal 134-146 [facility] Comment on above: Performed By: #### Karina MARTELL CMP, 3040-3 #### [facility] ([id number]) [address], [address] [place] [address] Urea nitrogen [Mass/Vol] 12 mg/dL Normal 5-23 [facility] Comment on above: Performed By: #### Karina MARTELL CMP, 3040-3 #### [facility] ([id number]) [address], [address] [place] [address] LIPASEon 11-29-2023 Lipase [Catalytic activity/Vol] 30 U/L Normal 11-82 [facility] Comment on above: Performed By: #### Karina MARTELL CMP, 3040-3 #### [facility] ([id number]) [address] [place] [address] Alanine aminotransferase [En zymatic activity/volume] in Serum or PlasmaOrdered By: Mitra Degroot on 02-25-2023 ALT [Catalytic activity/Vol] 12 U/L 7-52 [facility] Albumin [Mass/volume] in Ser um or Plasma by Bromocresol green (BCG) dye binding methoOrdered By: Mitra Degroot on 02-25-2023 Albumin BCG dye [Mass/Vol] 3.4 g/dL 3.5-5.7 [facility] Alkaline phosphatase [Enzyma tic activity/volume] in Serum or PlasmaOrdered By: Mitra Degroot on 02-25-2023 ALP [Catalytic activity/Vol] 107 U/L 34-104 [facility] Aspartate aminotransferase [ Enzymatic activity/volume] in Serum or PlasmaOrdered By: Mitra Degroot on 02-25-2023 AST [Catalytic activity/Vol] 11 U/L 13-39 [facility] Basophils Auto (Bld) [#/Vol] Ordered By: Mitra Degroot on 02-25-2023 Basophils (Bld) [#/Vol] 0.1 10*3/uL 0.0-0.2 [facility] Basophils/100 WBC Auto (Bld) Ordered By: Mitra Degroot on 02-25-2023 Basophils/100 WBC (Bld) 0.4 % . [facility] Bilirubin.total [Mass/volume ] in Serum or PlasmaOrdered By: Mitra Degroot on 02-25-2023 Bilirubin [Mass/Vol] 0.3 mg/dL 0.3-1.0 [facility] Calcium [Mass/volume] in Ser um or PlasmaOrdered By: Mitra Degroot on 02-25-2023 Calcium [Mass/Vol] 11.3 mg/dL 8.6-10.3 [facility] Carbon dioxide, total [Moles /volume] in Serum or PlasmaOrdered By: Mitra Degroot on 02-25-2023 CO2 [Moles/Vol] 26.0 mmol/L 21.0-31.0 [facility] Chloride [Moles/volume] in S ophelia or PlasmaOrdered By: Mitra Degroot on 02-25-2023 Chloride [Moles/Vol] 106 mmol/L 98-107 [facility] Complete Blood Count Auto Di ffon 02-25-2023 Basophils (Bld) [#/Vol] 0.1 10*3/uL Normal 0.0-0.2 [facility] Comment on above: Result Comment: PERF ORMED BY: [place] [address] PATHOLOGIST TRANSCRIBING MACHINE MECHANIC FLORY JAIN M.D. Performed By: #### C MP, CBC #### [address] Basophils/100 WBC (Bld) 0.4 % Normal . [facility] Comment on above: Performed By: #### C MP, CBC #### [address] Eosinophils (Bld) [#/Vol] 0.0 10*3/uL Normal 0.0-0.45 [facility] Comment on above: Performed By: #### C MP, CBC #### [address] Eosinophils/100 WBC (Bld) 0.3 % Normal . [facility] Comment on above: Performed By: #### C MP, CBC #### [address] Erythrocyte distribution width (RBC) [Ratio] 14.1 % Normal 11.9-15.3 [facility] Comment on above: Performed By: #### C MP, CBC #### [address] Hematocrit (Bld) [Volume fraction] 34.4 % Normal 34.0-46.4 [facility] Comment on above: Performed By: #### C MP, CBC #### [place] [address] [place] Hemoglobin (Bld) [Mass/Vol] 11.5 g/dL Low 11.8-15.4 [facility] Comment on above: Performed By: #### C MP, CBC #### [place] [address] [place] Lymphocytes (Bld) [#/Vol] 2.3 10*3/uL Normal 1.00-4.8 [facility] Comment on above: Performed By: #### C MP, CBC #### [address] Lymphocytes/100 WBC (Bld) 14.7 % Normal . [facility] Comment on above: Performed By: #### C MP, CBC #### [address] MCH (RBC) [Entitic mass] 29.9 pg Normal 24.7-34.3 [facility] Comment on above: Performed By: #### C MP, CBC #### [address] MCV (RBC) [Entitic vol] 90.1 fL Normal 80-100 [facility] Comment on above: Performed By: #### C MP, CBC #### [address] Mean Corpuscular HGB Conc 33.2 g/dL Normal 32.0-35.0 [facility] Comment on above: Performed By: #### C MP, CBC #### [address] Monocytes (Bld) [#/Vol] 1.0 10*3/uL High 0.0-0.8 [facility] Comment on above: Performed By: #### C MP, CBC #### [address] Monocytes/100 WBC (Bld) 6.6 % Normal . [facility] Comment on above: Performed By: #### C MP, CBC #### [address] Neutrophils (Bld) [#/Vol] 12.2 10*3/uL High 1.8-7.7 [facility] Comment on above: Performed By: #### C MP, CBC #### [address] Neutrophils/100 WBC (Bld) 78.0 % Normal . [facility] Comment on above: Performed By: #### C MP, CBC #### [address] NRBC% 0.0 /100{WBC} Normal 0-0.5 [facility] Comment on above: Performed By: #### C MP, CBC #### [address] Platelet mean volume (Bld) [Entitic vol] 7.8 fL Normal 6.3-10.7 [facility] Comment on above: Performed By: #### C MP, CBC #### [address] Platelets (Bld) [#/Vol] 348 10*3/uL Normal 150-450 [facility] Comment on above: Performed By: #### C MP, CBC #### [address] RBC (Bld) [#/Vol] 3.82 10*6/uL Normal 3.60-5.00 [facility] Comment on above: Performed By: #### C MP, CBC #### [address] WBC (Bld) [#/Vol] 15.7 10*3/uL High 3.8-11.6 [facility] Comment on above: Performed By: #### C MP, CBC #### [address] Comprehensive Metabolic Pane jose 02-25-2023 Albumin [Mass/Vol] 3.4 g/dL Low 3.5-5.7 [facility] Comment on above: Performed By: #### C MP, CBC #### [address] Albumin/Globulin [Mass ratio] 1.0 {ratio} Normal [facility] Comment on above: Performed By: #### C MP, CBC #### [address] ALP [Catalytic activity/Vol] 107 U/L High 34-104 [facility] Comment on above: Performed By: #### C MP, CBC #### [address] ALT [Catalytic activity/Vol] 12 U/L Normal 7-52 [facility] Comment on above: Performed By: #### C MP, CBC #### [facility] [address] Anion gap [Moles/Vol] 9.5 mmol/L Normal 6.0-15.0 [facility] Comment on above: Performed By: #### C MP, CBC #### [facility] [address] AST [Catalytic activity/Vol] 11 U/L Low 13-39 [facility] Comment on above: Performed By: #### C MP, CBC #### [facility] [address] Bilirubin [Mass/Vol] 0.3 mg/dL Normal 0.3-1.0 [facility] Comment on above: Performed By: #### C MP, CBC #### [facility] [address] [place] [address] Calcium [Mass/Vol] 11.3 mg/dL High 8.6-10.3 [facility] Comment on above: Performed By: #### C MP, CBC #### [facility] [address] [place] [address] Chloride [Moles/Vol] 106 mmol/L Normal 98-107 [facility] Comment on above: Performed By: #### C MP, CBC #### [facility] [address] [place] [address] CO2 [Moles/Vol] 26.0 mmol/L Normal 21.0-31.0 [facility] Comment on above: Performed By: #### C MP, CBC #### [facility] [address] Creatinine [Mass/Vol] 0.99 mg/dL Normal 0.60-1.20 [facility] Comment on above: Performed By: #### C MP, CBC #### [facility] [address] [place] [address] [place] Creatinine Clr Calc Pharmacy 81.19 Normal [facility] Comment on above: Result Comment: PERF ORMED BY: [place] [address] PATHOLOGIST TRANSCRIBING MACHINE MECHANIC FLORY JAIN M.D. Performed By: #### C MP, CBC #### [place] [address] [place] GFR/1.73 sq M.predicted MDRD (S/P/Bld) [Vol rate/Area] mL/min/{1.73_m2} [facility] Comment on above: Performed By: #### C MP, CBC #### [place] [address] [place] Globulin (S) [Mass/Vol] 3.3 g/dL [facility] Comment on above: Performed By: #### C MP, CBC #### [address] Glucose [Mass/Vol] 73 mg/dL Normal 70-100 [facility] Comment on above: Result Comment: [facility] Glucose Reference Range is dependent on time and content of last meal. Glucose of more than 200 mg/dL in a nonstressed, ambulatory subject supports the diagnosis of Diabetes Mellitus. ADA recommended reference range Performed By: #### C MP, CBC #### [address] Potassium [Moles/Vol] 4.5 mmol/L Normal 3.5-5.1 [facility] Comment on above: Performed By: #### C MP, CBC #### [place] [address] [place] Protein [Mass/Vol] 6.7 g/dL Normal 6.4-8.9 [facility] Comment on above: Performed By: #### C MP, CBC #### [place] [address] [place] Sodium [Moles/Vol] 137 mmol/L Normal 136-145 [facility] Comment on above: Performed By: #### C MP, CBC #### [place] [address] [place] Urea nitrogen [Mass/Vol] 12 mg/dL Normal 7-25 [facility] Comment on above: Performed By: #### C MP, CBC #### [facility] [address] Creatinine [Mass/volume] in Serum or PlasmaOrdered By: Mitra Degroot on 02-25-2023 Creatinine [Mass/Vol] 0.99 mg/dL 0.60-1.20 [facility] Eosinophils Auto (Bld) [#/Vo l]Ordered By: Mitra Degroot on 02-25-2023 Eosinophils (Bld) [#/Vol] 0.0 10*3/uL 0.0-0.45 [facility] Eosinophils/100 WBC Auto (Bl d)Ordered By: Mitra Degroot on 02-25-2023 Eosinophils/100 WBC (Bld) 0.3 % . [facility] Erythrocyte distribution wid th Auto (RBC) [Ratio]Ordered By: Mitra Degroot on 02-25-2023 Erythrocyte distribution width (RBC) [Ratio] 14.1 % 11.9-15.3 [facility] Globulin Calc (S) [Mass/Vol] Ordered By: Mitra Degroot on 02-25-2023 Globulin (S) [Mass/Vol] 3.3 g/dL [facility] Glucose [Mass/volume] in Ser um or PlasmaOrdered By: Mitra Degroot on 02-25-2023 Glucose [Mass/Vol] 73 mg/dL 70-100 [facility] Comment on above: ADA recommended refe rence rangeRandom Glucose Reference Range is dependent on time and content of last meal. Glucose of more than 200 mg/dL in a nonstressed, ambulatory subject supports the diagnosis of Diabetes Mellitus. Hematocrit Auto (Bld) [Volum e fraction]Ordered By: Mitra Degroot on 02-25-2023 Hematocrit (Bld) [Volume fraction] 34.4 % 34.0-46.4 [facility] Hemoglobin [Mass/volume] in BloodOrdered By: Mitra Degroot 02-25-2023 Hemoglobin (Bld) [Mass/Vol] 11.5 g/dL 11.8-15.4 [facility] Leukocytes [#/volume] correc rojas for nucleated erythrocytes in Blood by Automated counOrdered By: Mitra Degroot on 02-25-2023 WBC corrected for nucl RBC Auto (Bld) [#/Vol] 15.7 10*3/uL 3.8-11.6 [facility] Lymphocytes Auto (Bld) [#/Vo l]Ordered By: Mitra Degroot on 02-25-2023 Lymphocytes (Bld) [#/Vol] 2.3 10*3/uL 1.00-4.8 [facility] Lymphocytes/100 WBC Auto (Bl d)Ordered By: Mitra Degroot on 02-25-2023 Lymphocytes/100 WBC (Bld) 14.7 % . [facility] MCH Auto (RBC) [Entitic mass ]Ordered By: Mitra Degroot on 02-25-2023 MCH (RBC) [Entitic mass] 29.9 pg 24.7-34.3 [facility] MCHC Auto (RBC) [Mass/Vol]Or dered By: Mitra Degroot on 02-25-2023 MCHC (RBC) [Mass/Vol] 33.2 g/dL 32.0-35.0 [facility] MCV Auto (RBC) [Entitic vol] Ordered By: Mitra Degroot on 02-25-2023 MCV (RBC) [Entitic vol] 90.1 fL 80-100 [facility] Monocytes Auto (Bld) [#/Vol] Ordered By: Mitra Degroot on 02-25-2023 Monocytes (Bld) [#/Vol] 1.0 10*3/uL 0.0-0.8 [facility] Monocytes/100 WBC Auto (Bld) Ordered By: Mitra Degroot on 02-25-2023 Monocytes/100 WBC (Bld) 6.6 % . [facility] Neutrophils Auto (Bld) [#/Vo l]Ordered By: Mitra Degroot on 02-25-2023 Neutrophils (Bld) [#/Vol] 12.2 10*3/uL 1.8-7.7 [facility] Neutrophils/100 WBC Auto (Bl d)Ordered By: Mitra Degroot on 02-25-2023 Neutrophils/100 WBC (Bld) 78.0 % . [facility] No Panel InformationOrdered By: Mitra Degroot on 02-25-2023 Estimated GFR (CKD-EPI) > 60.0 mL/Min [facility] Creatinine Clearance (Chem 81.19 [facility] Nucleated erythrocytes [Pres ence] in Blood by Automated countOrdered By: Mitra Degroot on 02-25-2023 Nucleated RBC Auto Ql (Bld) 0.0 /100{WBC} 0-0.5 [facility] Platelet mean volume Auto (B ld) [Entitic vol]Ordered By: Mitra Degroot on 02-25-2023 Platelet mean volume (Bld) [Entitic vol] 7.8 fL 6.3-10.7 [facility] Platelets Auto (Bld) [#/Vol] Ordered By: Mitra Degroot on 02-25-2023 Platelets (Bld) [#/Vol] 348 10*3/uL 150-450 [facility] Potassium [Moles/volume] in Serum or PlasmaOrdered By: Mitra Degroot on 02-25-2023 Potassium [Moles/Vol] 4.5 mmol/L 3.5-5.1 [facility] Protein [Mass/volume] in Ser um or PlasmaOrdered By: Mitra Degroot on 02-25-2023 Protein [Mass/Vol] 6.7 g/dL 6.4-8.9 [facility] RBC Auto (Bld) [#/Vol]Ordere d By: Mitra Degroot on 02-25-2023 RBC (Bld) [#/Vol] 3.82 10*6/uL 3.60-5.00 [facility] Serum or plasma albumin/glob ulin mass ratioOrdered By: Mitra Degroot on 02-25-2023 Albumin/Globulin [Mass ratio] 1.0 {ratio} [facility] Serum or plasma anion gap de terminationOrdered By: Mitra Degroot on 02-25-2023 Anion gap [Moles/Vol] 9.5 mmol/L 6.0-15.0 [facility] Sodium [Moles/volume] in Ser um or PlasmaOrdered By: Mitra Degroot on 02-25-2023 Sodium [Moles/Vol] 137 mmol/L 136-145 [facility] Urea nitrogen [Mass/volume] in Serum or PlasmaOrdered By: Mitra Degroot on 02-25-2023 Urea nitrogen [Mass/Vol] 12 mg/dL 7-25 [facility] WBC Auto (Bld) [#/Vol]Ordere d By: Mitra Degroot on 02-25-2023 WBC (Bld) [#/Vol] 15.7 10*3/uL 3.8-11.6 [facility] Complete Blood Count Auto Di ffon 02-24-2023 Basophils (Bld) [#/Vol] 0.0 10*3/uL Normal 0.0-0.2 [facility] Comment on above: Result Comment: PERF ORMED BY: [facility] [address] [place] [address] PATHOLOGIST TRANSCRIBING MACHINE MECHANIC FLORY JAIN M.D. Performed By: #### R KS W RFX #### [facility] , Basophils/100 WBC (Bld) 0.2 % Normal . [facility] Comment on above: Performed By: #### R KS W RFX #### [facility] , Eosinophils (Bld) [#/Vol] 0.0 10*3/uL Normal 0.0-0.45 [facility] Comment on above: Performed By: #### R KS W RFX #### [facility] , Eosinophils/100 WBC (Bld) 0.0 % Normal . [facility] Comment on above: Performed By: #### R KS W RFX #### [facility] , Erythrocyte distribution width (RBC) [Ratio] 13.8 % Normal 11.9-15.3 [facility] Comment on above: Performed By: #### R KS W RFX #### [facility] , Hematocrit (Bld) [Volume fraction] 28.8 % Low 34.0-46.4 [facility] Comment on above: Performed By: #### R KS W RFX #### [facility] , Hemoglobin (Bld) [Mass/Vol] 9.9 g/dL Low 11.8-15.4 [facility] Comment on above: Performed By: #### R KS W RFX #### [facility] , Lymphocytes (Bld) [#/Vol] 3.1 10*3/uL Normal 1.00-4.8 [facility] Comment on above: Performed By: #### R KS W RFX #### [facility] , Lymphocytes/100 WBC (Bld) 15.8 % Normal . [facility] Comment on above: Performed By: #### R KS W RFX #### [facility] , MCH (RBC) [Entitic mass] 30.5 pg Normal 24.7-34.3 [facility] Comment on above: Performed By: #### R KS W RFX #### [facility] , MCV (RBC) [Entitic vol] 88.7 fL Normal 80-100 [facility] Comment on above: Performed By: #### R KS W RFX #### [facility] , Mean Corpuscular HGB Conc 34.4 g/dL Normal 32.0-35.0 [facility] Comment on above: Performed By: #### R KS W RFX #### [facility] , Monocytes (Bld) [#/Vol] 1.2 10*3/uL High 0.0-0.8 [facility] Comment on above: Performed By: #### R KS W RFX #### [facility] , Monocytes/100 WBC (Bld) 6.3 % Normal . [facility] Comment on above: Performed By: #### R KS W RFX #### [facility] , Neutrophils (Bld) [#/Vol] 15.1 10*3/uL High 1.8-7.7 [facility] Comment on above: Performed By: #### R KS W RFX #### [facility] , Neutrophils/100 WBC (Bld) 77.7 % Normal . [facility] Comment on above: Performed By: #### R KS W RFX #### [facility] , NRBC% 0.0 /100{WBC} Normal 0-0.5 [facility] Comment on above: Performed By: #### R KS W RFX #### [facility] , Platelet mean volume (Bld) [Entitic vol] 8.1 fL Normal 6.3-10.7 [facility] Comment on above: Performed By: #### R KS W RFX #### [facility] , Platelets (Bld) [#/Vol] 286 10*3/uL Normal 150-450 [facility] Comment on above: Performed By: #### R KS W RFX #### [facility] , RBC (Bld) [#/Vol] 3.24 10*6/uL Low 3.60-5.00 [facility] Comment on above: Performed By: #### R KS W RFX #### [facility] , WBC (Bld) [#/Vol] 19.4 10*3/uL High 3.8-11.6 [facility] Comment on above: Performed By: #### R KS W RFX #### [facility] , ABO/RH Typeon 02-23-2023 ABO and Rh group Nom (Bld) Blood group A Rh(D) positive Normal [facility] Comment on above: Result Comment: PERF ORMED BY: [facility] Lisa [place] [address] PATHOLOGIST TRANSCRIBING MACHINE MECHANIC FLORY JAIN M.D. ABO/Rh Retypeon 02-23-2023 ABO/RH Recheck Result Positive Normal [facility] Comment on above: Result Comment: PERF ORMED BY: [facility] [place] [place] [address] PATHOLOGIST TRANSCRIBING MACHINE MECHANIC FLORY JAIN M.D. Amphetamine Screen Ql (U)Ord ered By: DIANA SORENSON on 02-23-2023 Amphetamines Ql (U) Negative Negative [facility] Automated erythrocytes count in urine sediment (number/area)Ordered By: DIANA SORENSON on 02-23-2023 RBC Auto (Urine sed) [#/Area] 3-4 [HPF] 0-4 [facility] Automated leukocytes count i n urine sediment (number/area)Ordered By: DIANA DELEONAPRVERONICA on 02-23-2023 WBC Auto (Urine sed) [#/Area] 10-19 [HPF] 0-4 [facility] Automated urine hyaline cast s count (number/volume)Ordered By: DIANA SORENSON on 02-23-2023 Hyaline casts Auto (U) [#/Vol] None seen [LPF] 0-1 [facility] Barbiturates [Presence] in U rine by Screen methodOrdered By: DIANA SORENSON on 02-23-2023 Barbiturates Screen Ql (U) Negative Negative [facility] Benzodiazepines Screen Ql (U )Ordered By: DIANA SORENSON on 02-23-2023 Benzodiazepines Ql (U) Negative Negative [facility] Benzoylecgonine [Presence] i n Urine by Screen methodOrdered By: DIANA SORENSON on 02-23-2023 Benzoylecgonine Screen Ql (U) Negative Negative [facility] Bilirubin Test strip Ql (U)O rdered By: DIANA SORENSON on 02-23-2023 Bilirubin Ql (U) Negative Negative [facility] Casts typing in urine sedime nt by light microscopyOrdered By: DIANA DELEONAPRVERONICA on 02-23-2023 Casts LM Nom (Urine sed) None seen [LPF] None Seen [facility] Color Auto (U)Ordered By: GILMAR SORENSON on 02-23-2023 Color (U) Yellow Yellow [facility] Complete Blood Count Auto Di ffon 02-23-2023 Basophils (Bld) [#/Vol] 0.0 10*3/uL Normal 0.0-0.2 [facility] Comment on above: Result Comment: PERF ORMED BY: [place] [address] PATHOLOGIST TRANSCRIBING MACHINE MECHANIC FLORY JAIN M.D. Performed By: #### C BC #### [address] Basophils/100 WBC (Bld) 0.4 % Normal . [facility] Comment on above: Performed By: #### C BC #### [address] Eosinophils (Bld) [#/Vol] 0.0 10*3/uL Normal 0.0-0.45 [facility] Comment on above: Performed By: #### C BC #### [address] Eosinophils/100 WBC (Bld) 0.4 % Normal . [facility] Comment on above: Performed By: #### C BC #### [address] Erythrocyte distribution width (RBC) [Ratio] 14.1 % Normal 11.9-15.3 [facility] Comment on above: Performed By: #### C BC #### [address] Hematocrit (Bld) [Volume fraction] 34.7 % Normal 34.0-46.4 [facility] Comment on above: Performed By: #### C BC #### [address] Hemoglobin (Bld) [Mass/Vol] 12.0 g/dL Normal 11.8-15.4 [facility] Comment on above: Performed By: #### C BC #### [address] Lymphocytes (Bld) [#/Vol] 2.9 10*3/uL Normal 1.00-4.8 [facility] Comment on above: Performed By: #### C BC #### [address] Lymphocytes/100 WBC (Bld) 23.1 % Normal . [facility] Comment on above: Performed By: #### C BC #### [address] MCH (RBC) [Entitic mass] 30.2 pg Normal 24.7-34.3 [facility] Comment on above: Performed By: #### C BC #### [address] MCV (RBC) [Entitic vol] 87.6 fL Normal 80-100 [facility] Comment on above: Performed By: #### C BC #### [address] Mean Corpuscular HGB Conc 34.5 g/dL Normal 32.0-35.0 [facility] Comment on above: Performed By: #### C BC #### [address] Monocytes (Bld) [#/Vol] 0.7 10*3/uL Normal 0.0-0.8 [facility] Comment on above: Performed By: #### C BC #### [address] Monocytes/100 WBC (Bld) 5.5 % Normal . [facility] Comment on above: Performed By: #### C BC #### [address] Neutrophils (Bld) [#/Vol] 9.0 10*3/uL High 1.8-7.7 [facility] Comment on above: Performed By: #### C BC #### [address] Neutrophils/100 WBC (Bld) 70.6 % Normal . [facility] Comment on above: Performed By: #### C BC #### [address] NRBC% 0.0 /100{WBC} Normal 0-0.5 [facility] Comment on above: Performed By: #### C BC #### [facility] [address] Platelet mean volume (Bld) [Entitic vol] 8.1 fL Normal 6.3-10.7 [facility] Comment on above: Performed By: #### C BC #### [facility] [address] Platelets (Bld) [#/Vol] 331 10*3/uL Normal 150-450 [facility] Comment on above: Performed By: #### C BC #### [address] RBC (Bld) [#/Vol] 3.96 10*6/uL Normal 3.60-5.00 [facility] Comment on above: Performed By: #### C BC #### [address] WBC (Bld) [#/Vol] 12.7 10*3/uL High 3.8-11.6 [facility] Comment on above: Performed By: #### C BC #### [address] Cord Blood Gason 02-23-2023 Cord Arterial Blood Total CO2 25.1 mmol/L Normal 23.0-27.0 [facility] Comment on above: Performed By: #### C ORDBG #### Point of Care testing , Cord Blood Base Excess -0.3 mmol/L Normal -3.0-3.0 [facility] Comment on above: Performed By: #### C ORDBG #### Point of Care testing , Cord Blood Capillary PO2 20.1 mm[Hg] Off scale low 90.0-100.0 [facility] Comment on above: Performed By: #### C ORDBG #### Point of Care testing , Cord Blood Frac Inspired O2 21 % Normal [facility] Comment on above: Performed By: #### C ORDBG #### Point of Care testing , Cord Blood HCO3 23.9 mmol/L Normal 23.0-29.0 [facility] Comment on above: Performed By: #### C ORDBG #### Point of Care testing , Cord Blood Oxygen Content 5.1 mmol/L Low 6.6-9.7 [facility] Comment on above: Performed By: #### C ORDBG #### Point of Care testing , Cord Blood Oxygen Sat 54.3 % Low 95.0-99.0 [facility] Comment on above: Performed By: #### C ORDBG #### Point of Care testing , Cord Blood PCO2 38.2 mm[Hg] Normal 35.0-45.0 [facility] Comment on above: Performed By: #### C ORDBG #### Point of Care testing , Cord Blood pH 7.42 Normal 7.35-7.45 [facility] Comment on above: Performed By: #### C ORDBG #### Point of Care testing , Respiratory Critical Normal [facility] Comment on above: Result Comment: Crit ical Value called on: 02/23/2023 at 14:53 PERFORMED BY: [place] [address] PATHOLOGIST TRANSCRIBING MACHINE MECHANIC FLORY JAIN M.D. Performed By: #### C ORDBG #### Point of Care testing , VBG Draw Site Umbilical Cord Normal [facility] Comment on above: Performed By: #### C ORDBG #### Point of Care testing , Dipstick and Microscopicon 0 02-23-2023 Appearance (U) Cloudy Critically abnormal Clear [facility] Comment on above: Order Comment: Name Collection Type:: Clean-Voided Midstream Performed By: #### A DDONUAPLUS, CUU, OBUDS #### [facility] [address] [place] [address] [place] Bacteria,Urine 2+ High None Seen [facility] Comment on above: Order Comment: Name Collection Type:: Clean-Voided Midstream Performed By: #### A DDONUAPLUS, CUU, OBUDS #### [facility] [address] [place] [address] [place] Bilirubin,Urine Negative Normal Negative [facility] Comment on above: Order Comment: Name Collection Type:: Clean-Voided Midstream Performed By: #### A DDONUAPLUS, CUU, OBUDS #### [facility] [address] [place] [address] Color (U) Yellow Normal Yellow [facility] Comment on above: Order Comment: Name Collection Type:: Clean-Voided Midstream Performed By: #### A DDONUAPLUS, CUU, OBUDS #### [facility] [address] [place] [address] Glucose Ql (U) Normal Normal Normal [facility] Comment on above: Order Comment: Name Collection Type:: Clean-Voided Midstream Performed By: #### A DDONUAPLUS, CUU, OBUDS #### [facility] [address] [place] [address] Hyaline Casts,Urine None Seen Normal 0-1 [facility] Comment on above: Order Comment: Name Collection Type:: Clean-Voided Midstream Performed By: #### A DDONUAPLUS, CUU, OBUDS #### [facility] [address] [place] [address] [place] Ketones Ql (U) Trace High Negative [facility] Comment on above: Order Comment: Name Collection Type:: Clean-Voided Midstream Performed By: #### A DDONUAPLUS, CUU, OBUDS #### [facility] [address] [place] [address] [place] Leukocyte esterase Test strip Ql (U) 2+ High Negative [facility] Comment on above: Order Comment: Name Collection Type:: Clean-Voided Midstream Performed By: #### A DDONUAPLUS, CUU, OBUDS #### [facility] [address] [place] [address] [place] Nitrite,Urine Negative Normal Negative [facility] Comment on above: Order Comment: Name Collection Type:: Clean-Voided Midstream Performed By: #### A DDONUAPLUS, CUU, OBUDS #### [facility] [address] [place] [address] [place] Occult Blood,Urine Negative Normal Negative [facility] Comment on above: Order Comment: Name Collection Type:: Clean-Voided Midstream Result Comment: PERF ORMED BY: [place] [address] PATHOLOGIST TRANSCRIBING MACHINE MECHANIC FLORY JAIN M.D. Performed By: #### A DDONUAPLUS, CUU, OBUDS #### [address] Other Casts,Urine None Seen Normal None Seen [facility] Comment on above: Order Comment: Name Collection Type:: Clean-Voided Midstream Result Comment: PERF ORMED BY: [place] [address] PATHOLOGIST TRANSCRIBING MACHINE MECHANIC FLORY JAIN M.D. Performed By: #### A DDONUAPLUS, CUU, OBUDS #### [address] pH (U) 7.0 [pH] Normal 5.0-9.0 [facility] Comment on above: Order Comment: Name Collection Type:: Clean-Voided Midstream Performed By: #### A DDONUAPLUS, CUU, OBUDS #### [address] Protein (U) [Mass/Vol] 30 mg/dL High Negative [facility] Comment on above: Order Comment: Name Collection Type:: Clean-Voided Midstream Performed By: #### A DDONUAPLUS, CUU, OBUDS #### [place] [address] [place] RBC,Urine 3-4 Normal 0-4 [facility] Comment on above: Order Comment: Name Collection Type:: Clean-Voided Midstream Performed By: #### A DDONUAPLUS, CUU, OBUDS #### [address] Specificy [place],Urine 1.016 Normal 1.001-1.030 [facility] Comment on above: Order Comment: Name Collection Type:: Clean-Voided Midstream Performed By: #### A DDONUAPLUS, CUU, OBUDS #### [facility] [address] [place] [address] Squamous Epithelial Cell,Urine 10-19 High 0-2 [facility] Comment on above: Order Comment: Name Collection Type:: Clean-Voided Midstream Performed By: #### A DDONUAPLUS, CUU, OBUDS #### [facility] [address] [place] [address] Urobilinogen,Urine Normal Normal Normal [facility] Comment on above: Order Comment: Name Collection Type:: Clean-Voided Midstream Performed By: #### A DDONUAPLUS, CUU, OBUDS #### [address] WBC,Urine 10-19 High 0-4 [facility] Comment on above: Order Comment: Name Collection Type:: Clean-Voided Midstream Performed By: #### A DDONUAPLUS, CUU, OBUDS #### [facility] [address] [place] [address] Ketones Auto test strip (U) [Mass/Vol]Ordered By: DIANA SORENSON on 02-23-2023 Ketones (U) [Mass/Vol] Trace Negative [facility] Nitrite Test strip Ql (U)Ord ered By: DIANA SORENSON on 02-23-2023 Nitrite Ql (U) Negative Negative [facility] No Panel InformationOrdered By: DIANA SORENSON on 02-23-2023 Blood Gas Critical Value See comment [facility] Comment on above: Critical Value louis d on: 02/23/2023 at 14:53 Blood Gas Sample Site Umbilical cord [facility] Cord Arterial Bld Oxygen Saturation 54.3 % 95.0-99.0 [facility] Cord Arterial Blood Base Excess -0.3 mmol/L -3.0-3.0 [facility] Cord Arterial Blood O2 Content 5.1 mmol/L 6.6-9.7 [facility] Cord Blood HCO3 23.9 mmol/L 23.0-29.0 [facility] Cord Blood PCO2 38.2 mm[Hg] 35.0-45.0 [facility] Cord Blood pH 7.42 7.35-7.45 [facility] Cord Blood PO2 20.1 mm[Hg] 90.0-100.0 [facility] Cord Blood Total CO2 25.1 mmol/L 23.0-27.0 [facility] FiO2 21 % [facility] OB Urine Drug Screen (NO THC )on 02-23-2023 Amphetamine Screen,Urine Negative Normal Negative [facility] Comment on above: Performed By: #### A DDONUAPLUS, CUU, OBUDS #### [facility] [address] [place] [address] [place] Barbiturate Screen,Urine Negative Normal Negative [facility] Comment on above: Performed By: #### A DDONUAPLUS, CUU, OBUDS #### [facility] [address] [place] [address] [place] Benzodiazepines Screen,Urine Negative Normal Negative [facility] Comment on above: Performed By: #### A DDONUAPLUS, CUU, OBUDS #### [facility] [address] [place] [address] [place] Cocaine Screen,Urine Negative Normal Negative [facility] Comment on above: Performed By: #### A DDONUAPLUS, CUU, OBUDS #### [facility] [address] [place] [address] [place] Opiate Screen,Urine Negative Normal Negative [facility] Comment on above: Performed By: #### A DDONUAPLUS, CUU, OBUDS #### [facility] [address] [place] [address] [place] Phencyclidine Screen, Urine Negative Normal Negative [facility] Comment on above: Result Comment: Thes e are unconfirmed results and should not be used for legal purposes. Drug Cut-Off Concentration: AMPH 1000 ng/mL KIMMY 200 ng/mL DILMA 200 ng/mL COCM 300 ng/mL OP 300 ng/mL PCP 25 ng/mL PERFORMED BY: [facility] [address] [place] [address] PATHOLOGIST TRANSCRIBING MACHINE MECHANIC FLORY JAIN M.D. Performed By: #### A JM, FRANCISCA KAHNS #### [address] Opiates [Presence] in Urine by Screen methodOrdered By: DIANA SORENSON on 02-23-2023 Opiates Screen Ql (U) Negative Negative [facility] Phencyclidine Screen Ql (U)O rdered By: DIANA SORENSON on 02-23-2023 Phencyclidine Ql (U) Negative Negative [facility] Comment on above: These are unconfirme d results and should not be used for legal purposes. Drug Cut-Off Concentration: AMPH 1000 ng/mL KIMMY 200 ng/mL DILMA 200 ng/mL COCM 300 ng/mL OP 300 ng/mL PCP 25 ng/mL Protein Auto test strip (U) [Mass/Vol]Ordered By: DIANA SORENSON on 02-23-2023 Protein (U) [Mass/Vol] 30 mg/dL Negative [facility] RPR w/rfx to Quant TP Abson 02-23-2023 RPR, Rfx Quant RPR Non-Reactive Normal Non Reactive [facility] Comment on above: Result Comment: Perf ormed at: - [facility] [address] [id number] Assistant Professor In Family Studies: Rashaad Trevino PhD, Phone: [phone] PERFORMED BY: [place] [address] PATHOLOGIST TRANSCRIBING MACHINE MECHANIC FLORY JAIN M.D. Performed By: #### R KS W RFX #### [facility] , Reagin Ab [Presence] in Seru m by RPROrdered By: DIANA SORENSON on 02-23-2023 Reagin Ab RPR Ql (S) Non-Reactive Non Reactive [facility] Comment on above: Performed at: - [facility] [address] [id number] Director: Rashaad Trevino PhD, Phone: [phone] Specific gravity Auto test s trip (U) [Rel density]Ordered By: DIANA SORENSON on 02-23-2023 Specific gravity (U) [Rel density] 1.016 1.001-1.030 [facility] Squamous epithelial cells de tection in urine sediment by light microscopyOrdered By: DIANA SORENSON on 02-23-2023 Epithelial cells.squamous LM Ql (Urine sed) 10-19 [HPF] 0-2 [facility] Urine Cultureon 02-23-2023 Bacteria identified Cx Nom (U) <9,000 colonies/ml mixed bacterial skin contaminants 2 Days PERFORMED BY: [place] [address] PATHOLOGIST TRANSCRIBING MACHINE MECHANIC FLORY JAIN M.D. [facility] Comment on above: Performed By: #### A DDONUAASHLYN, CUU, OBUDS #### [address] Urine bacteria detection by automated methodOrdered By: DIANA SORENSON on 02-23-2023 Bacteria Auto Ql (U) 2+ None Seen [facility] Urine clarity by refractomet ry automatedOrdered By: DIANA SORENSON on 02-23-2023 Clarity Refractometry automated (U) Cloudy Clear [facility] Urine culture routineOrdered By: DIANA SORENSON on 02-23-2023 Bacteria identified Cx Nom (U) 2 Days [facility] Urine glucose measurement by automated test strip (mass/volume)Ordered By: DIANA SORENSON on 02-23-2023 Glucose Auto test strip (U) [Mass/Vol] Normal mg/dL Normal [facility] Urine hemoglobin detection b y automated test stripOrdered By: DIANA SORENSON on 02-23-2023 Hemoglobin Auto test strip Ql (U) Negative Negative [facility] Urine leukocyte esterase det ection by automated test stripOrdered By: DIANA SORENSON on 02-23-2023 Leukocyte esterase Auto test strip Ql (U) 2+ Negative [facility] Urobilinogen Auto test strip (U) [Mass/Vol]Ordered By: DIANA SORENSON on 02-23-2023 Urobilinogen (U) [Mass/Vol] Normal mg/dL Normal [facility] pH Auto test strip (U)Ordere d By: DIANA SORENSON on 02-23-2023 pH (U) 7.0 [pH] 5.0-9.0 [facility] Bacterial susceptibility wooten el EZEQUIEL (Isol)on 01-31-2023 Microorganism identified Cx Nom (Unsp spec) [id number] Abnormal [facility] Comment on above: Order Comment: Speci men Type: MICROBIAL ISOLATE Ordering Facility: [facility] Address: [address] [place] [address] Result Comment: Stre ptococcus agalactiae (group b streptococcus) Identification performed by client. Performed By: #### Hannah CRANE [id number] #### [facility] CLIA [id number] [address] [place] [address] [place] MINIMUM INHIBITORY CONCENTRA TION (VIZION)on 01-31-2023 cefTRIAXone [Susc] 0.25 Susceptible Susceptib le <=0.5 , Nonsusceptible >.5 [facility] Comment on above: Order Comment: Order ing Facility: [facility] Address: [address] [place] [address] Performed By: #### Hannah CRANE [id number] #### [facility] CLIA [id number] [address] [place] [address] [place] Clindamycin [Susc] <=0.12 Susceptible Susceptib le <=0.25 , Intermediate >.25 , Resistant >.5 [facility] Comment on above: Order Comment: Order ing Facility: [facility] Address: [address] [place] [address] Performed By: #### Hannah CRANE [id number] #### [facility] CLIA [id number] [address] [place] [address] [place] Erythromycin [Susc] <=0.25 Susceptible Suscepti ble <=0.25 , Intermediate >.25 , Resistant >=1 [facility] Comment on above: Order Comment: Order ing Facility: [facility] Address: [address] [place] [address] Performed By: #### V ROSA MARIA, 42792-5 #### [facility] CLIA [id number] [address] [place] [address] [place] Penicillin [Susc] 0.06 Susceptible Susceptibl e <=0.125 , Nonsusceptible >.125 [facility] Comment on above: Order Comment: Order ing Facility: [facility] Address: [address] [place] [address] Performed By: #### V ROSA MARIA, 99253-5 #### [facility] [place] [id number] [address] [place] [address] [place] Vancomycin [Susc] <=0.50 Susceptible Susceptibl e <=1 , Nonsusceptible >1 [facility] Comment on above: Order Comment: Order ing Facility: [facility] Address: [address] [place] [address] Performed By: #### V ROSA MARIA, 85814-2 #### [facility] [place] [id number] [address] [place] [address] [place] No Panel InformationOrdered By: DIANA SORENSON on 01-31-2023 Group B Streptococcus Culture Strep. agalactiae Grp B [facility] Strep B Culture (PCN Allergi c)on 01-31-2023 Strep B Culture (PCN Allergic) ORGANISM: Strep. agalactiae Grp B (O:B) Comments Sent to [facility] for Sensitivity Testing Please see scanned report located in the Laboratory/Scanned Reports section of the EMR. PERFORMED BY: [address] [place] [address] PATHOLOGIST TRANSCRIBING MACHINE MECHANIC FLORY JAIN M.D. Normal [facility] Comment on above: Performed By: #### R KS W RFX #### [facility] , [place] PREG [...] by: YOMAIRA SOSA Date: 2022-10-19 15:24 Normal [facility] AFP MATERNAL FOR SPINA BIFID Aon 10-07-2022 AFP MoM 1.00 Normal [facility] Comment on above: Performed By: #### A FPMAT #### [facility] [address] [address] [address] Calin Marshall AFP Value 45.3 ng/mL Normal [facility] Comment on above: Performed By: #### A FPMAT #### [facility] [address] [address] [address] Calin Marshall AFP, Serum for Spina Bifida Report Normal [facility] Comment on above: Performed By: #### A FPMAT #### [facility] [address] [address] [address] Calin Marshall Comment Comment Normal [facility] Comment on above: Result Comment: Les Miller, Ph.D., [facility] Director . References: Available Upon Request. . Multiples Of Median Cutoffs For AFP Elevations Perry 2.5 Black 2.8 IDD 2.0 Twins 4.5 Abbreviation Definitions IDD - Insulin Dep Diabetes OSBR - Open Spina Bifida Risk . For further inquiries contact [email or web address] at [phone]. . This test was developed and its performance characteristics determined by [employer] It has not been cleared or approved by the Food and Drug Administration. Performed By: #### A FPMAT #### [facility] [address] [place] [address] Dr. Calin Marshall Gest Age Collection Date 18.9 weeks Normal [facility] Comment on above: Performed By: #### A FPMAT #### [facility] [address] [address] [address] Calin Marshall Gestat, Age Based on Ultrasound Normal [facility] Comment on above: Result Comment: 8.6 on 07/25/2022 Recalculations are not recommended when gestational dating by LMP and ultrasound are within 10 days. Performed By: #### A FPMAT #### [facility] [address] [place] [address] Dr. Calin Marshall Insulin Dep Diabetes No Normal [facility] Comment on above: Performed By: #### A FPMAT #### [facility] [address] [place] [address] Dr. Calin Marshall Interpretation Comment Normal [facility] Comment on above: Result Comment: Inte [...] Customer Services to discuss available options. The [employer] recommends amniocentesis be offered to women age 35 and older. Performed By: #### A FPMAT #### [facility] [address] [address] [address] Calin Marshall [age] Normal [facility] Comment on above: Performed By: #### A FPMAT #### [facility] [address] [address] [address] Calin Marshall Multiple Gestation No Normal [facility] Comment on above: Performed By: #### A FPMAT #### [facility] [address] [address] [address] Calin Marshall OSBR [place] [address] [place] [id number] [facility] Comment on above: Performed By: #### A FPMAT #### [facility] [address] [place] [address] Dr. Calin Marshall PDF . [facility] Comment on above: Performed By: #### A FPMAT #### [facility] [address] [place] [address] Dr. Calin Marshall Race [facility] Comment on above: Performed By: #### A FPMAT #### [facility] [address] [place] [address] Dr. Calin Marshall Test Results: Negative [facility] Comment on above: Performed By: #### A FPMAT #### [facility] [address] [place] [address] Dr. Calin Marshall PAP ACOG PANEL 2: 21 to 29on 09-12-2022 . . [facility] Comment on above: Performed By: #### R UBIGG #### [facility] [address] [address] [address] Calin Marshall Age Gdln ACOG Testing - [facility] Comment on above: Performed By: #### R UBIGG #### [facility] [address] [place] [address] Dr. Calin Marshall DIAGNOSIS: Comment [facility] Comment on above: Result Comment: NEGA TIVE FOR INTRAEPITHELIAL LESION OR MALIGNANCY. Performed By: #### R UBIGG #### [facility] [address] [place] [address] Dr. Calin Marshall Methodology: Comment Normal [facility] Comment on above: Result Comment: This liquid based ThinPrep(R) pap test was screened with the use of an image guided system. Performed By: #### R UBIGG #### [facility] [address] [place] [address] Dr. Calin Marshall Note: Comment Normal [facility] Comment on above: Result Comment: The Pap smear is a screening test designed to aid in the detection of premalignant and malignant conditions of the uterine cervix. It is not a diagnostic procedure and should not be used as the sole means of detecting cervical cancer. Both false-positive and false-negative reports do occur. . Performed By: #### R UBIGG #### [facility] [address] [place] [address] Dr. Calin Marshall Performed by: Comment Normal [facility] Comment on above: Result Comment: Essence Salazar, Client Solutions Director (ASCP) Performed By: #### R UBIGG #### [facility] [address] [place] [address] Dr. Calin Marshall Reflex Criteria: Comment Normal [facility] Comment on above: Result Comment: The HPV DNA reflex criteria were not met with this specimen result therefore, no HPV testing was performed. . Performed By: #### R UBIGG #### [facility] [address] [place] [address] Dr. Calin Marshall Specimen adequacy: Comment Normal [facility] Comment on above: Result Comment: Sati sfactory for evaluation. No endocervical component is identified. Performed By: #### R UBIGG #### [facility] [address] [place] [address] Dr. Calin Marshall CHLAMYDIA/GONOCOCCUS RAUL (SW AB/URINE/PAPon 09-08-2022 Chlamydia trachomatis, RAUL Negative Normal Negative [facility] Comment on above: Performed By: #### C T/NGNA #### [facility] [address] [address] [address] Calin Marshall Neisseria gonorrhoeae, RAUL Negative Normal Negative [facility] Comment on above: Performed By: #### C T/NGNA #### [facility] [address] [place] [address] Dr. Calin Marshall HEP B SURFACE ANTIGEN SCREEN on 08-11-2022 HBsAg Screen Negative Normal Negative [facility] Comment on above: Performed By: #### C MP, LIPA #### [facility] [address] [place] [address] Dr. Calin Marshall HEPATITIS C VIRUS AB W/ REFL EX QUANTon 08-11-2022 HCV AB <0.1 Normal 0.0-0.9 [facility] Comment on above: Performed By: #### R UBIGG #### [facility] [address] [place] [address] Dr. Calin Marshall Interpretation: Comment Normal [facility] Comment on above: Result Comment: Nega tive Not infected with HCV, unless recent infection is suspected or other evidence exists to indicate HCV infection. Performed By: #### R UBIGG #### [facility] [address] [place] [address] Dr. Calin Marshall HIV 1 AND 2 WITH REFLEXon HIV Screen 4th Generation wRfx Non-Reactive Normal Non Reactive [facility] Comment on above: Result Comment: HIV Negative HIV-1/HIV-2 antibodies and HIV-1 p24 antigen were NOT detected. There is no laboratory evidence of HIV infection. Performed By: #### H IV12 #### [facility] [address] [place] [address] Dr. Calin Marshall RPR QUANTon 08-11-2022 Rapid Plasma Reagin, Quant Non-Reactive Normal NonRea<1:1 [facility] Comment on above: Result Comment: Plea se Note: This test does not meet current guidelines for screening and diagnosis of syphilis. This test is intended for following treatment response in patients being treated for syphilis infection. To screen for syphilis infection, a reflex cascade that includes both RPR and a treponema-specific assay should be utilized, such as Treponema pallidum (Syphilis) Screening [place] (679062) or Rapid Plasma Reagin (RPR) Test With Reflex to Quantitative RPR and Confirmatory Treponema pallidum Antibodies (322252). Performed By: #### R PRQ #### [facility] [address] [place] [address] Dr. Calin Marshall RUBELLA AB IGGon 08-11-2022 Rubella Antibodies, IgG 12.10 index Normal Immune >0.99 [facility] Comment on above: Result Comment: Non- immune <0.90 Equivocal 0.90 - 0.99 Immune >0.99 Performed By: #### R UBIGG #### [facility] [address] [place] [address] Dr. Calin Marshall CBC AUTO DIFFon 08-10-2022 BASO # 0.0 103/ul Normal 0.0-0.1 [facility] Comment on above: Performed By: #### R UBIGG #### [facility] [address] [place] [address] Dr. Calin Marshall Basophils/100 WBC (Bld) 0.4 % Normal 0.2-2.0 [facility] Comment on above: Performed By: #### R UBIGG #### [facility] [address] [place] [address] Dr. Calin Marshall EO # 0.1 103/ul Normal 0.0-0.7 [facility] Comment on above: Performed By: #### R UBIGG #### [facility] [address] [place] [address] Dr. Calin Marshall Eosinophils/100 WBC (Bld) 0.7 % Critically low 0.9-7.0 [facility] Comment on above: Performed By: #### R UBIGG #### [facility] [address] [place] [address] Dr. Calin Marshall Erythrocyte distribution width (RBC) [Ratio] 12.6 % Normal 11.0-15.0 [facility] Comment on above: Performed By: #### R UBIGG #### [facility] [address] [place] [address] Dr. Calin Marshall Hematocrit (Bld) [Volume fraction] 37.6 % Normal 36.0-48.0 [facility] Comment on above: Performed By: #### R UBIGG #### [facility] [address] [place] [address] Dr. Calin Marshall Hemoglobin (Bld) [Mass/Vol] 12.5 g/dL Normal 12.0-16.0 [facility] Comment on above: Performed By: #### R UBIGG #### [facility] [address] [place] [address] Dr. Calin Marshall IG # 0.03 10e3/ul Normal 0.00-0.03 [facility] Comment on above: Performed By: #### R UBIGG #### [facility] [address] [place] [address] Dr. Calin Marshall IG % 0.3 % Normal 0.0-0.5 [facility] Comment on above: Performed By: #### R UBIGG #### [facility] [address] [place] [address] Dr. Calin Marshall LYMPH # 2.5 103/ul Normal 1.2-3.8 [facility] Comment on above: Performed By: #### R UBIGG #### [facility] [address] [place] [address] Dr. Calin Marshall Lymphocytes/100 WBC (Bld) 22.3 % Normal 20.5-60.0 [facility] Comment on above: Performed By: #### R UBIGG #### [facility] [address] [place] [address] Dr. Calin Marshall MANUAL DIFF REQ NO Normal [facility] Comment on above: Performed By: #### R UBIGG #### [facility] [address] [place] [address] Dr. Calin Marshall MCH (RBC) [Entitic mass] 29.8 pg Normal 26.7-34.0 [facility] Comment on above: Performed By: #### R UBIGG #### [facility] [address] [place] [address] Dr. Calin Marshall MCHC (RBC) [Mass/Vol] 33.2 g/dL Normal 29.9-35.2 [facility] Comment on above: Performed By: #### R UBIGG #### [facility] [address] [place] [address] Dr. Calin Marshall MCV (RBC) [Entitic vol] 89.5 fL Normal 81.0-99.0 [facility] Comment on above: Performed By: #### R UBIGG #### [facility] [address] [place] [address] Dr. Calin Marshall MONO # 0.5 103/ul Normal 0.3-0.8 [facility] Comment on above: Performed By: #### R UBIGG #### [facility] [address] [place] [address] Dr. Calin Marshall Monocytes/100 WBC (Bld) 4.3 % Normal 1.7-12.0 [facility] Comment on above: Performed By: #### R UBIGG #### [facility] [address] [place] [address] Dr. Calin Marshall NEUT # 8.0 103/ul Critically high 1.4-6.5 [facility] Comment on above: Performed By: #### R UBIGG #### [facility] [address] [place] [address] Dr. Calin Marshall Neutrophils/100 WBC (Bld) 72.0 % Normal 43.0-75.0 [facility] Comment on above: Performed By: #### R UBIGG #### [facility] [address] [place] [address] Dr. Calin Marshall Platelet mean volume (Bld) [Entitic vol] 10.2 fL Normal 9.5-13.5 [facility] Comment on above: Performed By: #### R UBIGG #### [facility] [address] [place] [address] Dr. Calin Marshall PLT 362 103/ul Normal 150-450 [facility] Comment on above: Performed By: #### R UBIGG #### [facility] [address] [place] [address] Dr. Calin Marshall RBC 4.20 106/ul Normal 4.20-5.40 [facility] Comment on above: Performed By: #### R UBIGG #### [facility] [address] [place] [address] Dr. Calin Marshall WBC 11.0 103/ul Normal 4.0-11.0 [facility] Comment on above: Performed By: #### R UBIGG #### [facility] [address] [place] [address] Dr. Calin Marshall CULTURE URINEon 08-10-2022 CULTURE URINE Culture Observations : LIGHT GROWTH OF MIXED GENITAL MARIO. NO POTENTIAL PATHOGENS SEEN. Normal [facility] Comment on above: Performed By: #### R UBIGG #### [facility] [address] [place] [address] Dr. Calin Marshall DRUG SCREEN RAPID (URINE)on 08-10-2022 AMP Negative Normal NEGATIVE [facility] Comment on above: Performed By: #### D RUGRPD #### [facility] [address] [place] [address] Dr. Calin Marshall BAR Negative Normal NEGATIVE [facility] Comment on above: Performed By: #### D RUGRPD #### [facility] [address] [place] [address] Dr. Calin Marshall BUP Negative Normal NEGATIVE [facility] Comment on above: Performed By: #### D RUGRPD #### [facility] [address] [place] [address] Dr. Calin Marshall BZO Negative Normal NEGATIVE [facility] Comment on above: Performed By: #### D RUGRPD #### [facility] [address] [place] [address] Dr. Calin Marshall ROSARIO Negative Normal NEGATIVE [facility] Comment on above: Performed By: #### D RUGRPD #### [facility] [address] [place] [address] Dr. Calin Marshall CUT-OFFS SEE BELOW Normal [facility] Comment on above: Result Comment: AMP (Amphetamine): 500ng/mL, BAR (Barbituates): 200 ng/mL, BZO (Benzodiazepines): 150 ng/mL, BUP (Buprenorphine): 10 ng/mL, ROSARIO (Cocaine): 150 ng/mL, mAMP (Methamphetamine): 500 ng/mL, MTD (Methadone): 200 ng/mL, OPI (Opiates): 100 ng/mL, OXY (Oxycodone): 100 ng/mL, PCP (Phencyclidine): 25 ng/mL, PPX (Propoxyphene): 300 ng/mL, THC (Cannabinoids): 50 ng/mL, TCA (Trycyclic Antidepressants): 300 ng/mL Performed By: #### D RUGRPD #### [facility] [address] [place] [address] Dr. Calin Marshall DRUG CUT HEADER DRUG CLASS TEST SYSTEM CUT-OFF CONCENTRATIONS ARE FOLLOWS: Normal [facility] Comment on above: Performed By: #### D RUGRPD #### [facility] [address] [place] [address] Dr. Calin Marshall mAMP Negative Normal NEGATIVE [facility] Comment on above: Performed By: #### D RUGRPD #### [facility] [address] [place] [address] Dr. Calin Marshall MTD Negative Normal NEGATIVE [facility] Comment on above: Performed By: #### D RUGRPD #### [facility] [address] [place] [address] Dr. Calin Marshall OPI Negative Normal NEGATIVE [facility] Comment on above: Performed By: #### D RUGRPD #### [facility] [address] [place] [address] Dr. Calin Marshall OXY Negative Normal NEGATIVE [facility] Comment on above: Performed By: #### D RUGRPD #### [facility] [address] [place] [address] Dr. Calin Marshall PCP Negative Normal NEGATIVE [facility] Comment on above: Performed By: #### D RUGRPD #### [facility] [address] [place] [address] Dr. Calin Marshall PPX Negative Normal NEGATIVE [facility] Comment on above: Performed By: #### D RUGRPD #### [facility] [address] [address] [address] Calin Marshall TCA Positive Abnormal NEGATIVE [facility] Comment on above: Performed By: #### D RUGRPD #### [facility] [address] [place] [address] Dr. Calin Marshall THC Positive Abnormal NEGATIVE [facility] Comment on above: Performed By: #### D RUGRPD #### [facility] [address] [place] [address] Dr. Calin Marshall GLYCOHEMOGLOBIN A1Con 2022 ADA RECOMMENDATION SEE BELOW Normal [facility] Comment on above: Result Comment: ADA RECOMMENDED LIMIT 4.0 - 6.0 ADA THERAPEUTIC TARGET < 7.0 ACTION SUGGESTED > 7.0 Performed By: #### C YULIANA, LIPA #### [facility] [address] [place] [address] Dr. Calin Marshall Glucose [Mass/Vol] 97 mg/dL Normal [facility] Comment on above: Performed By: #### C YULIANA, LIPA #### [facility] [address] [place] [address] Dr. Calin Marshall HbA1c (Bld) [Mass fraction] 5.0 % Normal 4.5-6.2 [facility] Comment on above: Performed By: #### C YULIANA, LIPA #### [facility] [address] [place] [address] Dr. Calin Marshall CHON BOX TEST PT SEND OUTo n 08-10-2022 SENT TO REF LAB 08/10/2022 Normal [facility] Comment on above: Performed By: #### R UBIGG #### [facility] [address] [place] [address] Dr. Calin Marshall TYPE AND SCREENon 08-10-2022 TYPE AND SCREEN Negative Normal [facility] Comment on above: Performed By: #### R UBIGG #### [facility] [address] [place] [address] Dr. aClin Marshall US PREG TVon 07-26-2022 US PREG [...] CALDERON OLSON Date: 2022-07-26 07:08 Normal [facility] CBC AUTO DIFFon 07-12-2022 BASO # 0.1 103/ul Normal 0.0-0.1 [facility] Comment on above: Performed By: #### R UBIGG #### [facility] [address] [place] [address] Dr. Calin Marshall Basophils/100 WBC (Bld) 0.3 % Normal 0.2-2.0 [facility] Comment on above: Performed By: #### R UBIGG #### [facility] [address] [place] [address] Dr. Calin Marshall EO # 0.0 103/ul Normal 0.0-0.7 [facility] Comment on above: Performed By: #### R UBIGG #### [facility] [address] [place] [address] Dr. Calin Marshall Eosinophils/100 WBC (Bld) 0.2 % Critically low 0.9-7.0 [facility] Comment on above: Performed By: #### R UBIGG #### [facility] [address] [place] [address] Dr. Calin Marshall Erythrocyte distribution width (RBC) [Ratio] 11.9 % Normal 11.0-15.0 [facility] Comment on above: Performed By: #### R UBIGG #### [facility] [address] [place] [address] Dr. Calin Marshall Hematocrit (Bld) [Volume fraction] 40.8 % Normal 36.0-48.0 [facility] Comment on above: Performed By: #### R UBIGG #### [facility] [address] [address] [address] Calin Marshall Hemoglobin (Bld) [Mass/Vol] 14.4 g/dL Normal 12.0-16.0 [facility] Comment on above: Performed By: #### R UBIGG #### [facility] [address] [address] [address] Calin Marshall IG # 0.06 10e3/ul Critically high 0.00-0.03 [facility] Comment on above: Performed By: #### R UBIGG #### [facility] [address] [place] [address] Dr. Calin Marshall IG % 0.3 % Normal 0.0-0.5 [facility] Comment on above: Performed By: #### R UBIGG #### [facility] [address] [place] [address] Dr. Calin Marshall LYMPH # 3.4 103/ul Normal 1.2-3.8 [facility] Comment on above: Performed By: #### R UBIGG #### [facility] [address] [place] [address] Dr. Calin Marshall Lymphocytes/100 WBC (Bld) 18.6 % Critically low 20.5-60.0 [facility] Comment on above: Performed By: #### R UBIGG #### [facility] [address] [place] [address] Dr. Calin Marshall MANUAL DIFF REQ NO Normal [facility] Comment on above: Performed By: #### R UBIGG #### [facility] [address] [place] [address] Dr. Calin Marshall MCH (RBC) [Entitic mass] 30.3 pg Normal 26.7-34.0 [facility] Comment on above: Performed By: #### R UBIGG #### [facility] [address] [place] [address] Dr. Calin Marshall MCHC (RBC) [Mass/Vol] 35.3 g/dL Critically high 29.9-35.2 [facility] Comment on above: Performed By: #### R UBIGG #### [facility] [address] [address] [address] Calin Marshall MCV (RBC) [Entitic vol] 85.7 fL Normal 81.0-99.0 [facility] Comment on above: Performed By: #### R UBIGG #### [facility] [address] [address] [address] Calin Marshall MONO # 0.9 103/ul Critically high 0.3-0.8 [facility] Comment on above: Performed By: #### R UBIGG #### [facility] [address] [address] [address] Calin Marshall Monocytes/100 WBC (Bld) 4.9 % Normal 1.7-12.0 [facility] Comment on above: Performed By: #### R UBIGG #### [facility] [address] [place] [address] Dr. Calin Marshall NEUT # 13.8 103/ul Critically high 1.4-6.[address] [facility] Comment on above: Performed By: #### R UBIGG #### [facility] [address] [place] [address] Dr. Calin Marshall Neutrophils/100 WBC (Bld) 75.7 % Critically high 43.0-75.0 [facility] Comment on above: Performed By: #### R UBIGG #### [facility] [address] [place] [address] Dr. Calin Marshall Platelet mean volume (Bld) [Entitic vol] 9.5 fL Normal 9.5-13.5 [facility] Comment on above: Performed By: #### R UBIGG #### [facility] [address] [place] [address] Dr. Calin Marshall PLT 427 103/ul Normal 150-450 [facility] Comment on above: Performed By: #### R UBIGG #### [facility] [address] [place] [address] Dr. Calin Marshall RBC 4.76 106/ul Normal 4.20-5.40 [facility] Comment on above: Performed By: #### R UBIGG #### [facility] [address] [place] [address] Dr. Calin Marshall WBC 18.2 103/ul Critically high 4.0-11.[address] [facility] Comment on above: Performed By: #### R UBIGG #### [facility] [address] [place] [address] Dr. Calin SHIPMAN URINE PROFILEon 3 Bilirubin Ql (U) Negative Normal NEGATIVE [facility] Comment on above: Performed By: #### C MP, LIPA #### [facility] [address] [place] [address] Dr. Calin Marshall Clarity (U) CLEAR Normal CLEAR [facility] Comment on above: Performed By: #### C MP, LIPA #### [facility] [address] [place] [address] Dr. Calin Marshall Color (U) YELLOW Normal YELLOW [facility] Comment on above: Performed By: #### C MP, LIPA #### [facility] [address] [place] [address] Dr. Calin HANDY A micrscopic examination will be performed if indicated. Normal [facility] Comment on above: Performed By: #### C MP, LIPA #### [facility] [address] [place] [address] Dr. Calin Marshall Glucose Ql (U) Negative Normal NEGATIVE The [facility] Comment on above: Performed By: #### C MP, LIPA #### [facility] [address] [place] [address] Dr. Calin Marshall Hemoglobin Ql (U) SMALL Abnormal NEGATIVE [facility] Comment on above: Performed By: #### C MP, LIPA #### [facility] [address] [place] [address] Dr. Calin Marshall Ketones Ql (U) >=80 Abnormal NEGATIVE The [facility] Comment on above: Performed By: #### C MP, LIPA #### [facility] [address] [place] [address] Dr. Calin Marshall LEUKOCYTES Negative Normal NEGATIVE [facility] Comment on above: Performed By: #### C MP, LIPA #### [facility] [address] [place] [address] Dr. Calin Marshall Nitrite Ql (U) Negative Normal NEGATIVE [facility] Comment on above: Performed By: #### C MP, LIPA #### [facility] [address] [place] [address] Dr. Calin Marshall pH (U) 6.0 [pH] Normal 5-9 [facility] Comment on above: Performed By: #### C MP, LIPA #### [facility] [address] [place] [address] Dr. Calin Marshall Protein (U) [Mass/Vol] 30 mg/dL Abnormal NEGATIVE/ TRACE [facility] Comment on above: Performed By: #### C MP, LIPA #### [facility] [address] [place] [address] Dr. Calin Marshall SPEC GRAVITY >=1.030 Abnormal 1.005-<=1.025 [facility] Comment on above: Performed By: #### C MP, LIPA #### [facility] [address] [place] [address] Dr. Calin Marshall UR MICRO IND INDICATED Normal [facility] Comment on above: Performed By: #### C MP, LIPA #### [facility] [address] [place] [address] Dr. Calin Marshall Urobilinogen Qn (U) 0.2 {Bridger'U}/dL Normal 0.2 - 1. 0 [facility] Comment on above: Performed By: #### C MP, LIPA #### [facility] [address] [place] [address] Dr. Calin Marshall LIPASEon 07-12-2022 Lipase [Catalytic activity/Vol] 186.0 U/L Normal 73.0-393.0 [facility] Comment on above: Performed By: #### C MP, LIPA #### [facility] [address] [place] [address] Dr. Clain Marshall PROF 14(COMP METB)on 023 Albumin [Mass/Vol] 4.6 g/dL Normal 3.4-5.0 [facility] Comment on above: Performed By: #### C MP, LIPA #### [facility] [address] [place] [address] Dr. Calin Marshall Albumin/Globulin [Mass ratio] 1.0 {ratio} Normal [facility] Comment on above: Performed By: #### C MP, LIPA #### [facility] [address] [address] [address] Calin Marshall ALP [Catalytic activity/Vol] 100 U/L Normal 46-116 [facility] Comment on above: Performed By: #### C MP, LIPA #### [facility] [address] [place] [address] Dr. Calin Marshall ALT [Catalytic activity/Vol] 25 U/L Normal 14-59 [facility] Comment on above: Performed By: #### C MP, LIPA #### [facility] [address] [place] [address] Dr. Calin Marshall Anion gap [Moles/Vol] 18.6 mmol/L Normal [facility] Comment on above: Performed By: #### C MP, LIPA #### [facility] [address] [place] [address] Dr. Calin Marshall AST [Catalytic activity/Vol] 15 U/L Normal 15-37 [facility] Comment on above: Performed By: #### C MP, LIPA #### [facility] [address] [place] [address] Dr. Calin Marshall Bilirubin [Mass/Vol] 0.5 mg/dL Normal 0.2-1.0 [facility] Comment on above: Performed By: #### C MP, LIPA #### [facility] [address] [place] [address] Dr. Calin Marshall Calcium [Mass/Vol] 10.8 mg/dL Critically high 8.5-10.1 [facility] Comment on above: Performed By: #### C MP, LIPA #### [facility] [address] [place] [address] Dr. Calin Marshall Chloride [Moles/Vol] 95 mmol/L Critically low 98-107 [facility] Comment on above: Performed By: #### C MP, LIPA #### [facility] [address] [place] [address] Dr. Calin Marshall CO2 [Moles/Vol] 22.8 mmol/L Normal 21.0-32.[address] [facility] Comment on above: Performed By: #### C MP, LIPA #### [facility] [address] [address] [address] Calin Marshall Creatinine [Mass/Vol] 0.86 mg/dL Normal 0.55-1.02 [facility] Comment on above: Performed By: #### C MP, LIPA #### [facility] [address] [place] [address] Dr. Calin Marshall EGFR-AF IRANIAN >60 Normal >=[address] [facility] Comment on above: Performed By: #### C MP, LIPA #### [facility] [address] [place] [address] Dr. Calin Marshall EGFR-NON AF IRANIAN >60 Normal >=60 [facility] Comment on above: Performed By: #### C MP, LIPA #### [facility] [address] [place] [address] Dr. Calin Marshall Globulin (S) [Mass/Vol] 4.6 g/dL Normal [facility] Comment on above: Performed By: #### C MP, LIPA #### [facility] [address] [place] [address] Dr. Calin Marshall Glucose [Mass/Vol] 79 mg/dL Normal 74-106 [facility] Comment on above: Performed By: #### C MP, LIPA #### [facility] [address] [place] [address] Dr. Calin Marshall Potassium [Moles/Vol] 3.4 mmol/L Critically low 3.5-5.1 [facility] Comment on above: Performed By: #### C MP, LIPA #### [facility] [address] [place] [address] Dr. Calin Marshall Protein [Mass/Vol] 9.2 g/dL Critically high 6.4-8.2 [facility] Comment on above: Performed By: #### C MP, LIPA #### [facility] [address] [place] [address] Dr. Calin Marshall Sodium [Moles/Vol] 133 mmol/L Critically low 136-145 Th e [facility] Comment on above: Performed By: #### C MP, LIPA #### [facility] [address] [place] [address] Dr. Calin Marshall Urea nitrogen [Mass/Vol] 10.0 mg/dL Normal 7.0-18.0 [facility] Comment on above: Performed By: #### C MP, LIPA #### [facility] [address] [place] [address] Dr. Calin Marshall Urea nitrogen/Creatinine [Mass ratio] 11.6 mg/mg Normal [facility] Comment on above: Performed By: #### C MP, LIPA #### [facility] [address] [place] [address] Dr. Calin Marshall URINE MICROSCOPIC ONLYon BACTERIA TRACE Abnormal NONE SEEN [facility] Comment on above: Performed By: #### C YULIANA, LIPA #### [facility] [address] [place] [address] Dr. Calin Marshall Bacteria identified Cx Nom (U) NOT INDICATED Normal [facility] Comment on above: Performed By: #### C MP, LIPA #### [facility] [address] [place] [address] Dr. Calin Marshall CAST NONE SEEN Normal NONE SEEN [facility] Comment on above: Performed By: #### C MP, LIPA #### [facility] [address] [place] [address] Dr. Calin Marshall Crystals LM Nom (Urine sed) NONE SEEN Normal NONE SEEN [facility] Comment on above: Performed By: #### C MP, LIPA #### [facility] [address] [place] [address] Dr. Calin Marshall Epithelial cells LM Ql (Urine sed) RARE Normal NONE SEEN /RARE [facility] Comment on above: Performed By: #### C MP, LIPA #### [facility] [address] [place] [address] Dr. Calin Marshall MUCOUS NONE SEEN Normal NONE SEEN [facility] Comment on above: Performed By: #### C MP, LIPA #### [facility] [address] [place] [address] Dr. Calin Marshall RBC 0-2 Normal 0-2 [facility] Comment on above: Performed By: #### C MP, LIPA #### [facility] [address] [place] [address] Dr. Calin Marshall WBC NONE SEEN Normal NONE SEEN [facility] Comment on above: Performed By: #### C MP, LIPA #### [facility] [address] [place] [address] Dr. Calin Marshall CBC AUTO DIFFon 07-08-2022 BASO # 0.1 103/ul Normal 0.0-0.1 [facility] Comment on above: Performed By: #### C MP, LIPA #### [facility] [address] [place] [address] Dr. Calin Marshall Basophils/100 WBC (Bld) 0.4 % Normal 0.2-2.0 [facility] Comment on above: Performed By: #### C MP, LIPA #### [facility] [address] [place] [address] Dr. Calin Marshall EO # 0.1 103/ul Normal 0.0-0.7 [facility] Comment on above: Performed By: #### C MP, LIPA #### [facility] [address] [place] [address] Dr. Calin Marshall Eosinophils/100 WBC (Bld) 0.3 % Critically low 0.9-7.0 [facility] Comment on above: Performed By: #### C MP, LIPA #### [facility] [address] [place] [address] Dr. Calin Marshall Erythrocyte distribution width (RBC) [Ratio] 12.0 % Normal 11.0-15.0 [facility] Comment on above: Performed By: #### C MP, LIPA #### [facility] [address] [place] [address] Dr. Calin Marshall Hematocrit (Bld) [Volume fraction] 40.3 % Normal 36.0-48.0 [facility] Comment on above: Performed By: #### C MP, LIPA #### [facility] [address] [place] [address] Dr. Calin Marshall Hemoglobin (Bld) [Mass/Vol] 14.3 g/dL Normal 12.0-16.0 [facility] Comment on above: Performed By: #### C MP, LIPA #### [facility] [facility] [address] [place] [address] Dr. Calin Marshall IG # 0.05 10e3/ul Critically high 0.00-0.03 [facility] Comment on above: Performed By: #### C MP, LIPA #### [facility] [address] [place] [address] Dr. Calin Marshall IG % 0.3 % Normal 0.0-0.5 [facility] Comment on above: Performed By: #### C MP, LIPA #### [facility] [address] [place] [address] Dr. Calin Marshall LYMPH # 3.5 103/ul Normal 1.2-3.8 [facility] Comment on above: Performed By: #### C MP, LIPA #### [facility] [address] [place] [address] Dr. Calin Marshall Lymphocytes/100 WBC (Bld) 20.3 % Critically low 20.5-60.0 [facility] Comment on above: Performed By: #### C MP, LIPA #### [facility] [address] [place] [address] Dr. Calin Marshall MANUAL DIFF REQ NO Normal [facility] Comment on above: Performed By: #### C MP, LIPA #### [facility] [address] [place] [address] Dr. Calin Marshall MCH (RBC) [Entitic mass] 30.5 pg Normal 26.7-34.0 [facility] Comment on above: Performed By: #### C MP, LIPA #### [facility] [address] [place] [address] Dr. Calin Marshall MCHC (RBC) [Mass/Vol] 35.5 g/dL Critically high 29.9-35.2 [facility] Comment on above: Performed By: #### C MP, LIPA #### [facility] [address] [place] [address] Dr. Calin Marshall MCV (RBC) [Entitic vol] 85.9 fL Normal 81.0-99.0 [facility] Comment on above: Performed By: #### C MP, LIPA #### [facility] [address] [place] [address] Dr. Calin Marshall MONO # 0.8 103/ul Normal 0.3-0.8 [facility] Comment on above: Performed By: #### C MP, LIPA #### [facility] [address] [place] [address] Dr. Calin Marshall Monocytes/100 WBC (Bld) 4.6 % Normal 1.7-12.0 [facility] Comment on above: Performed By: #### C MP, LIPA #### [facility] [address] [place] [address] Dr. Calin Marshall NEUT # 12.8 103/ul Critically high 1.4-6.[address] [facility] Comment on above: Performed By: #### C MP, LIPA #### [facility] [address] [place] [address] Dr. Calin Marshall Neutrophils/100 WBC (Bld) 74.1 % Normal 43.0-75.0 [facility] Comment on above: Performed By: #### C MP, LIPA #### [facility] [address] [place] [address] Dr. Calin Marshall Platelet mean volume (Bld) [Entitic vol] 9.6 fL Normal 9.5-13.5 [facility] Comment on above: Performed By: #### C MP, LIPA #### [facility] [address] [place] [address] Dr. Calin Marshall PLT 415 103/ul Normal 150-450 [facility] Comment on above: Performed By: #### C YULIANA, LIPA #### [facility] [address] [place] [address] Dr. Calin Marshall RBC 4.69 106/ul Normal 4.20-5.40 [facility] Comment on above: Performed By: #### C YULIANA, LIPA #### [facility] [address] [place] [address] Dr. Calin Marshall WBC 17.3 103/ul Critically high 4.0-11.[address] [facility] Comment on above: Performed By: #### C YULIANA, LIPA #### [facility] [address] [place] [address] Dr. Calin Marshall CULTURE URINEon 07-08-2022 CULTURE URINE Culture Observations : MODERATE GROWTH OF MIXED GENITAL MARIO. NO POTENTIAL PATHOGENS SEEN. Normal [facility] Comment on above: Performed By: #### R UBIGG #### [facility] [address] [place] [address] Dr. Calin Marshall ER URINE PROFILEon Bilirubin Ql (U) Negative Normal NEGATIVE [facility] Comment on above: Performed By: #### ELDA ZHOURO #### [facility] [address] [place] [address] Dr. Calin Marshall Clarity (U) CLEAR Normal CLEAR [facility] Comment on above: Performed By: #### ELDA ZHOURO #### [facility] [address] [place] [address] Dr. Calin Marshall Color (U) LT. YELLOW Normal YELLOW [facility] Comment on above: Performed By: #### ELDA ZHOURO #### [facility] [address] [place] [address] Dr. Calin HANDY A micrscopic examination will be performed if indicated. Normal [facility] Comment on above: Performed By: #### ELDA ZHOURO #### [facility] [address] [place] [address] Dr. Calin Marshall Glucose Ql (U) Negative Normal NEGATIVE [facility] Comment on above: Performed By: #### Ivan FRAUSTO UMICRO #### [facility] [address] [place] [address] Dr. Calin Marshall Hemoglobin Ql (U) SMALL Abnormal NEGATIVE [facility] Comment on above: Performed By: #### Ivan RULiza UMICRO #### [facility] [address] [address] [address] Calin Marshall Ketones Ql (U) 15 mg/dl Abnormal NEGATIVE [facility] Comment on above: Performed By: #### Ivan FRAUSTO UMICRO #### [facility] [address] [place] [address] Dr. Calin Marshall LEUKOCYTES Negative Normal NEGATIVE [facility] Comment on above: Performed By: #### Ivan FRAUSTO UMICRO #### [facility] [address] [place] [address] Dr. Calin Marshall Nitrite Ql (U) Negative Normal NEGATIVE [facility] Comment on above: Performed By: #### Ivan FRAUSTO UMICRO #### [facility] [address] [place] [address] Dr. Calin Marshall pH (U) 6.0 [pH] Normal 5-9 [facility] Comment on above: Performed By: #### Ivan FRAUSTO UMICRO #### [facility] [address] [place] [address] Dr. Calin Marshall SPEC GRAVITY <=1.005 Abnormal 1.005-<=1.025 [facility] Comment on above: Performed By: #### Ivan FRAUSTO UMICRO #### [facility] [address] [place] [address] Dr. Calin Marshall UA PROTEIN Negative Normal NEGATIVE/ TRACE [facility] Comment on above: Performed By: #### Ivan FRAUSTO UMICRO #### [facility] [address] [place] [address] Dr. Calin Marshall UR MICRO IND INDICATED Normal [facility] Comment on above: Performed By: #### E RUR, UMICRO #### [facility] [address] [place] [address] Dr. Calin Marshall Urobilinogen Qn (U) 0.2 {Bridger'U}/dL Normal 0.2 - 1. 0 [facility] Comment on above: Performed By: #### E KENNA FRAUSTO #### [facility] [address] [place] [address] Dr. Calin Marshall PROF 14(COMP METB)on 022 Albumin [Mass/Vol] 4.4 g/dL Normal 3.4-5.0 [facility] Comment on above: Performed By: #### C MP, LIPA #### [facility] [address] [place] [address] Dr. Calin Marshall Albumin/Globulin [Mass ratio] 1.0 {ratio} Normal [facility] Comment on above: Performed By: #### C MP, LIPA #### [facility] [address] [place] [address] Dr. Calin Marshall ALP [Catalytic activity/Vol] 93 U/L Normal 46-116 [facility] Comment on above: Performed By: #### C MP, LIPA #### [facility] [address] [place] [address] Dr. Calin Marshall ALT [Catalytic activity/Vol] 34 U/L Normal 14-59 [facility] Comment on above: Performed By: #### C MP, LIPA #### [facility] [address] [place] [address] Dr. Calin Marshall Anion gap [Moles/Vol] 17.3 mmol/L Normal [facility] Comment on above: Performed By: #### C MP, LIPA #### [facility] [address] [place] [address] Dr. Calin Marshall AST [Catalytic activity/Vol] 21 U/L Normal 15-37 [facility] Comment on above: Performed By: #### C MP, LIPA #### [facility] [address] [place] [address] Dr. Calin Marshall Bilirubin [Mass/Vol] 0.6 mg/dL Normal 0.2-1.0 [facility] Comment on above: Performed By: #### C MP, LIPA #### [facility] [address] [place] [address] Dr. Calin Marshall Calcium [Mass/Vol] 10.7 mg/dL Critically high 8.5-10.1 [facility] Comment on above: Performed By: #### C MP, LIPA #### [facility] [address] [place] [address] Dr. Calin Marshall Chloride [Moles/Vol] 96 mmol/L Critically low 98-107 [facility] Comment on above: Performed By: #### C MP, LIPA #### [facility] [address] [place] [address] Dr. Calin Marshall CO2 [Moles/Vol] 23.1 mmol/L Normal 21.0-32.[address] [facility] Comment on above: Performed By: #### C MP, LIPA #### [facility] [address] [place] [address] Dr. Calin Marshall Creatinine [Mass/Vol] 0.83 mg/dL Normal 0.55-1.02 [facility] Comment on above: Performed By: #### C MP, LIPA #### [facility] [address] [place] [address] Dr. Calin Marshall EGFR-AF IRANIAN >60 Normal >=[address] [facility] Comment on above: Performed By: #### C MP, LIPA #### [facility] [address] [place] [address] Dr. Calin Marshall EGFR-NON AF IRANIAN >60 Normal >=60 [facility] Comment on above: Performed By: #### C MP, LIPA #### [facility] [address] [place] [address] Dr. Calin Marshall Globulin (S) [Mass/Vol] 4.4 g/dL Normal [facility] Comment on above: Performed By: #### C MP, LIPA #### [facility] [address] [place] [address] Dr. Calin Marshall Glucose [Mass/Vol] 98 mg/dL Normal 74-106 [facility] Comment on above: Performed By: #### C YULIANA, LIPA #### [facility] [address] [place] [address] Dr. Calin Marshall Potassium [Moles/Vol] 3.4 mmol/L Critically low 3.5-5.1 [facility] Comment on above: Performed By: #### C YULIANA, LIPA #### [facility] [address] [place] [address] Dr. Calin Marshall Protein [Mass/Vol] 8.8 g/dL Critically high 6.4-8.2 [facility] Comment on above: Performed By: #### C YULIANA, LIPA #### [facility] [address] [place] [address] Dr. Calin Marshall Sodium [Moles/Vol] 133 mmol/L Critically low 136-145 [facility] Comment on above: Performed By: #### C YULIANA, LIPA #### [facility] [address] [place] [address] Dr. Calin Marshall Urea nitrogen [Mass/Vol] 8.0 mg/dL Normal 7.0-18.0 [facility] Comment on above: Performed By: #### C YULIANA, LIPA #### [facility] [address] [place] [address] Dr. Calin Marshall Urea nitrogen/Creatinine [Mass ratio] 9.6 mg/mg Normal [facility] Comment on above: Performed By: #### C YULIANA, LIPA #### [facility] [address] [place] [address] Dr. Calin Marshall URINE MICROSCOPIC ONLYon BACTERIA SMALL Abnormal NONE SEEN [facility] Comment on above: Performed By: #### KENNA ZHOU #### [facility] [address] [place] [address] Dr. Calin Marshall Bacteria identified Cx Nom (U) INDICATED Normal [facility] Comment on above: Performed By: #### ELDA ZHOURO #### [facility] [address] [place] [address] Dr. Calin Marshall CAST NONE SEEN Normal NONE SEEN [facility] Comment on above: Performed By: #### E RUR, UMICRO #### [facility] [address] [address] [address] Calin Marshall Crystals LM Nom (Urine sed) NONE SEEN Normal NONE SEEN [facility] Comment on above: Performed By: #### E RUR, UMICRO #### [facility] [address] [address] [address] Calin Marshall Epithelial cells LM Ql (Urine sed) MODERATE Abnormal NONE SEEN /RARE [facility] Comment on above: Performed By: #### E RUR, UMICRO #### [facility] [address] [place] [address] Dr. Calin Marshall MUCOUS NONE SEEN Normal NONE SEEN [facility] Comment on above: Performed By: #### E RUR, UMICRO #### [facility] [address] [place] [address] Dr. Calin Marshall RBC 2-5 Abnormal 0-2 [facility] Comment on above: Performed By: #### E RUR, UMICRO #### [facility] [address] [place] [address] Dr. Calin Marshall WBC 2-5 Abnormal NONE SEEN [facility] Comment on above: Performed By: #### E RUR, UMICRO #### [facility] [address] [place] [address] Dr. Calin Marshall Vitamin D 25-OHon 08-09-2021 VIT D 25 OH 29 ng/ml Low >29 [facility] [employer] Comment on above: Result Comment: Baylee min D Status Deficiency <20 ng/mL Insufficiency 20-29 ng/mL Optimal 30-100 ng/mL Possible Toxicity >=150 ng/mL Performed By: #### V ITD #### [facility] [address] [place], [place] [id number] [place] 06-15-2020 Consent [id number]# 1.00CD:127 Normal [facility] Registrationon 06-15-2020 Registration [id number]# 1.00CD:127 Normal [facility] Follow Up (Plastic Surgery)o n [...] Surgical History History of Appendectomy History of [place] tooth extraction Family History Family history of [...] Capsule *Vitals Vital Signs Recorded: 17Jul2019 09:48AM Mzwgrhwnajd81.2 F, Oral Wdeieoev093 Abmugfgsv09 Height5 ft 2.5 in Tmbqql672 lb BMI Xviwaugenh62.2 BSA Calculated1.88 Pain Scale0 Physical Exam Examination reveals some erythema in both sites. I have removed the sutures from the chest incision. We have discussed scar maturation and the use of mederma or scar guard 'Scores and Scales' Signatures Electronically signed by : Vikas Garrido MD,; Jul 17 2019 10:00AM EST (Author) Normal [facility]2019 [facility] Name NATALEE ALCOCER Pathologist: BRIAN SHAH DO Date of Procedure: 06/25/2019 Date Received: 06/25/2019 Date Reported 06/27/2019 Submitting Physician: VIKAS GARRIDO MD Location: [facility] Copy To/Referring/Attendin g: VIKAS GARRIDO MD Other [...] of specimen tas/06/26/2019 Normal [facility] History and Physical - Surgi endy Update [...] Last Updated: 25-Jun-2019 07:07 by Vikas Garrido) [facility] PREOPERATIVE DIAGNOSIS: Mass of right neck and chest. POSTOPERATIVE DIAGNOSIS: Mass of right neck and chest. PROCEDURE: Excision of mass of right neck and chest. DEVELOPER PROGRAMMER ANALYST: Henok Sanchez. ANESTHESIA: MAC. OPERATIVE INDICATIONS: The [...] Vikas Garrido MD EST EST DICTATION NUMBER: [id number] INTERNAL JOB NUMBER: [id number] CC: MIA DORSEY Electronic Signatures: Vikas Garrido) (Signed on 25-Jun-2019 09:40) Authored Unsigned, Draft (SYS GENERATED) (Entered on 25-Jun-2019 09:03) Entered Last Updated: 25-Jun-2019 09:40 by Vikas Garrido) Normal [facility] Otheron 06-25-2019 Name LEODAN NATALEE Tucker April Pathologist: AYALA BENTONate of Procedure: 06/25/2019Date Received: 06/25/2019Date Reported 06/27/2019Submitting Physician: VIKAS GARRIDO MDLocation: [facility] Copy To/Referring/Attendin g:VIKAS GARRIDO MD Other External [...] 2 central area of specimen tas/06/26/2019 [facility] Work Phone: Preop Checkliston 06-25-2019 Preop Checklist Preop Checklist: Preop Checklist: Arrival [id number] Arrival Time05:51 Procedure Typecyst off neck, right and upper right chest NPO [id number] 23:00 ID Band Onyes Allergy Bandyes Consent [...] to abelino Respiratory Assessment: Breath Soundsdefer to anthesia Neurological Assessment: Level of Consciousnessalert, oriented Mobilitymoves all extremities Able to Express Selfyes Age Appropriateyes Emotional Statuscalm Preop Education: Surgical Site Infection Preventionyes Pain Scales and Managementyes Language / Communication: Language / CommunicationEnglish Electronic Signatures: Mary Jaimes (HALEY) (Signed 25-Jun-2019 06:11) Authored: Preop Checklist Last Updated: 25-Jun-2019 06:11 by Mary Jaimes (HALEY) Normal [facility] Patient Profile - Preop v2on 06-24-2019 Patient [...] cysts removed Primary Contact Name and NumberTrevor [phone] Other Contact Names and Numbersmatt dad [phone] Patient Belongingsclothes only Medications Brought to Hospitalno General Health: Weight in kg83 kilogram(s) Weight in sap954 pound(s) Weight Methodstated Height in cm158.7 centimeter(s) [...] Are You Currently Breastfeedingno Neurological Symptoms/Conditionsmi graines 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 Are there any cultural, spiritual, lutheran practices/values/need s that are important for us [...] 25-Jun-2019 06:08 by Mary Jaimes (RN) Normal [facility] APTTon 06-21-2019 aPTT Coag (Bld) [Time] 37 s Normal 28 - 38 [facility] Comment on above: Result Comment: THE APTT IS NO LONGER USED FOR MONITORING UNFRACTIONATED HEPARIN THERAPY. FOR MONITORING HEPARIN THERAPY, USE THE HEPARIN ASSAY. Performed By: #### A PTT #### [address] [address] Activated Partial Thrombopla stin Timeon 06-21-2019 aPTT Coag (PPP) [Time] 37 {sec} 28 - 38 [facility] Work Phone: Comment on above: THE APTT IS NO LONGE R USED FOR MONITORING UNFRACTIONATED HEPARIN THERAPY. FOR MONITORING HEPARIN THERAPY, USE THE HEPARIN ASSAY. CBC AND DIFFERENTIALon 06-21 % AUTOMATED IMMATURE GRAN 0.1 % Normal 0.0 - 0.9 [facility] Comment on above: Result Comment: Perc ent differential counts (%) should be interpreted in the context of the absolute cell counts (cells/L). Performed By: #### C BCDF #### [address] [address] Basophils (Bld) [#/Vol] 0.03 10*3/uL Normal 0.00 - 0.10 [facility] Comment on above: Performed By: #### C BCDF #### [address] [address] Eosinophils (Bld) [#/Vol] 0.04 10*3/uL Normal 0.00 - 0.70 [facility] Comment on above: Performed By: #### C BCDF #### [address] [address] Lymphocytes (Bld) [#/Vol] 3.08 10*3/uL Normal 1.20 - 4.80 [facility] Comment on above: Performed By: #### C BCDF #### [address] [address] Monocytes (Bld) [#/Vol] 0.49 10*3/uL Normal 0.10 - 1.00 [facility] Comment on above: Performed By: #### C BCDF #### [address] [address] Neutrophils (Bld) [#/Vol] 5.85 10*3/uL Normal 1.20 - 7.70 [facility] Comment on above: Performed By: #### C BCDF #### [address] [address] Platelets (Bld) [#/Vol] 363 10*3/uL Normal 150 - 450 [facility] Comment on above: Performed By: #### C BCDF #### [address] [address] RBC (Bld) [#/Vol] 4.68 x10E12/L Normal 4.00 - 5.20 [facility] Comment on above: Performed By: #### C BCDF #### [address] [address] WBC (Bld) [#/Vol] 9.5 10*3/uL Normal 4.4 - 11.3 [facility] Comment on above: Performed By: #### C BCDF #### [address] [address] Basophils/100 WBC (Bld) 0.3 % 0.0 - 2.0 [facility] Work Phone: Comment on above: Performed By: #### C BCDF #### [address] [address] Eosinophils/100 WBC (Bld) 0.4 % 0.0 - 6.0 [facility] Work Phone: Comment on above: Performed By: #### C BCDF #### [address] [address] Erythrocyte distribution width (RBC) [Ratio] 11.9 % See Below [facility] Work Phone: Comment on above: Performed By: #### C BCDF #### [address] [address] Reference Range: 11. 5 - 14.5 Hematocrit (Bld) [Volume fraction] 41.6 % See Below [facility] Work Phone: Comment on above: Performed By: #### C BCDF #### [address] [address] Reference Range: 36. 0 - 46.0 Hemoglobin (Bld) [Mass/Vol] 13.9 g/dL See Below [facility] Work Phone: Comment on above: Performed By: #### C BCDF #### [address] [address] Reference Range: 12. 0 - 16.0 Lymphocytes/100 WBC (Bld) 32.4 % See Below [facility] Work Phone: Comment on above: Performed By: #### C BCDF #### [address] [address] Reference Range: 13. 0 - 44.0 MCHC (RBC) [Mass/Vol] 33.4 g/dL See Below - [facility] Work Phone: Comment on above: Performed By: #### C BCDF #### [address] [address] Reference Range: 32. 0 - 36.0 MCV (RBC) [Entitic vol] 89 fL 80 - 100 [facility] Work Phone: Comment on above: Performed By: #### C BCDF #### [address] [address] Monocytes/100 WBC (Bld) 5.2 % 2.0 - 10.0 [facility] Work Phone: Comment on above: Performed By: #### C BCDF #### [address] [address] Neutrophils/100 WBC (Bld) 61.6 % See Below [facility] Work Phone: Comment on above: Performed By: #### C BCDF #### [address] [address] Reference Range: 40. 0 - 80.0 [facility] 2018 Albumin [Mass/Vol] 4.8 g/dL Normal 3.4 - 5.0 [facility] Comment on above: Performed By: #### C MP #### [address] [address] ALP [Catalytic activity/Vol] 83 U/L Normal 33 - 110 [facility] Comment on above: Performed By: #### C MP #### [address] [address] ALT [Catalytic activity/Vol] 15 U/L Normal 7 - 45 [facility] Comment on above: Result Comment: Janet ents treated with Sulfasalazine may generate falsely decreased results for ALT. Performed By: #### C MP #### [facility] [address] [place] [address] Anion gap [Moles/Vol] 11 mmol/L Normal 10 - 20 [facility] Comment on above: Performed By: #### C MP #### [facility] [address] [place] [address] AST [Catalytic activity/Vol] 12 U/L Normal 9 - 39 [facility] Comment on above: Performed By: #### C MP #### [address] [address] Bilirubin [Mass/Vol] 0.3 mg/dL Normal 0.0 - 1.2 [facility] Comment on above: Performed By: #### C MP #### [address] [address] Calcium [Mass/Vol] 10.7 mg/dL High 8.6 - 10.3 [facility] Comment on above: Performed By: #### C MP #### [address] [address] Chloride [Moles/Vol] 102 mmol/L Normal 98 - 107 [facility] Comment on above: Performed By: #### C MP #### [address] [address] Creatinine [Mass/Vol] 0.80 mg/dL Normal 0.50 - 1.05 [facility] Comment on above: Performed By: #### C MP #### [address] [address] GFR- AM. >60 Normal >60 [facility] Comment on above: Result Comment: CALC ULATIONS OF ESTIMATED GFR ARE PERFORMED USING THE MDRD STUDY EQUATION FOR THE IDMS-TRACEABLE CREATININE METHODS. CLIN CHEM 2007;53:766-72 Performed By: #### C MP #### [facility] [address] [place] [address] GFR-NON AM. >60 Normal >60 [facility] Comment on above: Performed By: #### C MP #### [address] [address] Glucose [Mass/Vol] 82 mg/dL Normal 74 - 99 [facility] Comment on above: Performed By: #### C MP #### [address] [address] HCO3 (Bld) [Moles/Vol] 26 mmol/L Normal 21 - 32 [facility] Comment on above: Performed By: #### C MP #### [address] [address] Potassium [Moles/Vol] 4.1 mmol/L Normal 3.5 - 5.3 [facility] Comment on above: Performed By: #### C MP #### [address] [address] Protein [Mass/Vol] 8.2 g/dL Normal 6.4 - 8.2 [facility] Comment on above: Performed By: #### C MP #### [address] [address] Sodium [Moles/Vol] 135 mmol/L Low 136 - 145 [facility] Comment on above: Performed By: #### C MP #### [address] [address] Urea nitrogen [Mass/Vol] 16 mg/dL Normal 6 - 23 [facility] Comment on above: Performed By: #### C MP #### [address] [address] Complete Blood Count + Diffe rentialon 06-21-2019 Basophils (Bld) [#/Vol] 0.03 {x10E9/L} See Below [facility] Work Phone: Comment on above: Reference Range: 0.0 0 - 0.10 Eosinophils (Bld) [#/Vol] 0.04 {x10E9/L} See Below [facility] Work Phone: Comment on above: Reference Range: 0.0 0 - 0.70 Lymphocytes (Bld) [#/Vol] 3.08 {x10E9/L} See Below [facility] Work Phone: Comment on above: Reference Range: 1.2 0 - 4.80 Monocytes (Bld) [#/Vol] 0.49 {x10E9/L} See Below [facility] Work Phone: Comment on above: Reference Range: 0.1 0 - 1.00 Neutrophils (Bld) [#/Vol] 5.85 {x10E9/L} See Below [facility] Work Phone: Comment on above: Reference Range: 1.2 0 - 7.70 Platelets (Bld) [#/Vol] 363 {x10E9/L} 150 - 450 [facility] Work Phone: RBC (Bld) [#/Vol] 4.68 {x10E12/L} See Below [facility] Work Phone: Comment on above: Reference Range: 4.0 0 - 5.20 WBC (Bld) [#/Vol] 9.5 {x10E9/L} 4.4 - 11.3 [facility] Work Phone: Complete Blood Count + Differential 0.1 % 0.0 - 0.9 [facility] Work Phone: Comment on above: Percent differential counts (%) should be interpreted in the context of the absolute cell counts (cells/L). HCG, Serum - Qualitativeon 08-22-2018 HCG ( test) Ql Negative Negative [facility] Work Phone: HCG,SERUM QUALITATIVEon 06-09 HCG,SERUM QUALITATIVE Negative Normal Negative [facility] Comment on above: Performed By: #### H CGS #### [address] [address] Hematologyon 06-21-2019 INR Coag (PPP) [Relative time] 1.1 {INR} 0.9 - 1.1 [facility] Work Phone: PT Coag (PPP) [Time] 12.3 {sec} 9.7 - 12.7 [facility] Work Phone: Metabolic Panelon 06-21-2019 ALP [Catalytic activity/Vol] 83 U/L 33 - 110 [facility] Work Phone: Anion gap [Moles/Vol] 11 mmol/L 10 - 20 [facility] Work Phone: Bilirubin [Mass/Vol] 0.3 mg/dL 0.0 - 1.2 [facility] Work Phone: Calcium [Mass/Vol] 10.7 mg/dL above high threshold 8.6 - 10.3 [facility] Work Phone: Chloride [Moles/Vol] 102 mmol/L 98 - 107 [facility] Work Phone: CO2 [Moles/Vol] 26 mmol/L 21 - 32 [facility] Work Phone: Creatinine [Mass/Vol] 0.80 mg/dL See Below [facility] Work Phone: Comment on above: Reference Range: 0.5 0 - 1.05 Glucose [Mass/Vol] 82 mg/dL 74 - 99 [facility] Work Phone: Potassium [Moles/Vol] 4.1 mmol/L 3.5 - 5.3 [facility] Work Phone: Protein [Mass/Vol] 8.2 g/dL 6.4 - 8.2 [facility] Work Phone: Sodium [Moles/Vol] 135 mmol/L below low threshold 136 - 145 [facility] Work Phone: Urea nitrogen [Mass/Vol] 16 mg/dL 6 - 23 [facility] Work Phone: Otheron 06-21-2019 Albumin BCP dye [Mass/Vol] 4.8 g/dL 3.4 - 5.0 [facility] Work Phone: ALT With P-5'-P [Catalytic activity/Vol] 15 U/L 7 - 45 [facility] Work Phone: Comment on above: Patients treated wit h Sulfasalazine may generate falsely decreased results for ALT. AST With P-5'-P [Catalytic activity/Vol] 12 U/L 9 - 39 [facility] Work Phone: >60 >60 [facility] Work Phone: Comment on above: CALCULATIONS OF [place] MATED GFR ARE PERFORMED USING THE MDRD STUDY EQUATION FOR THE IDMS-TRACEABLE CREATININE METHODS. CLIN CHEM 2007;53:766-72 PT/INRon 06-21-2019 INR Coag (PPP) [Relative time] 1.1 {INR} Normal 0.9 - 1.1 [facility] Comment on above: Performed By: #### P TINR #### [facility] [address] [place] [address] PT Coag (PPP) [Time] 12.3 s Normal 9.7 - 12.7 [facility] Comment on above: Performed By: #### P TINR #### [facility] [address] [place] [address] Vital Signs Date Time Vital Sign Value Performing Clinician Facility 01-23-2024 11:15-0400 Body height 154.9 cm Shala Prince MD Work Phone: [facility] 01-23-2024 11:15-0400 Body mass index (BMI) [Ratio] 29.68 kg/m2 Shala Prince MD Work Phone: [facility] 01-23-2024 11:15-0400 Body temperature 97.39 [degF] Shala Prince MD Work Phone: [facility] 01-23-2024 11:15-0400 Body weight 71.22 kg Shala Prince MD Work Phone: [facility] 01-23-2024 11:15-0400 Diastolic blood pressure 86 mm[Hg] Shala Prince MD Work Phone: [facility] 01-23-2024 11:15-0400 Heart rate 70 /min Shala Prince MD Work Phone: [facility] 01-23-2024 11:15-0400 SaO2% (BldA) [Mass fraction] 99 % Shala Prince MD Work Phone: [facility] 01-23-2024 11:15-0400 Systolic blood pressure 133 mm[Hg] Shala Prince MD Work Phone: [facility] 01-15-2024 16:30-0400 Body temperature 97.5 [degF] Braden Hawk MD Work Phone: [facility] [employer] 01-15-2024 16:30-0400 Diastolic blood pressure 88 mm[Hg] Braden Hawk MD Work Phone: [facility] [employer] 01-15-2024 16:30-0400 Heart rate 86 /min Braden Hawk MD Work Phone: [facility] [employer] 01-15-2024 16:30-0400 Respiratory rate 15 /min Braden Hawk MD Work Phone: [facility] [employer] 01-15-2024 16:30-0400 SaO2% (BldA) [Mass fraction] 97 % Braden Hawk MD Work Phone: [facility] [employer] 01-15-2024 16:30-0400 Systolic blood pressure 135 mm[Hg] Braden Hawk MD Work Phone: [facility] [employer] 01-15-2024 12:28-0400 Body height 154.9 cm Braden Hawk MD Work Phone: [facility] [employer] [facility] 01-15-2024 12:28-0400 Body mass index (BMI) [Ratio] 30.23 kg/m2 Braden Hawk MD Work Phone: [facility] [employer] [facility] 01-15-2024 12:28-0400 Body weight 72.58 kg Braden Hawk MD Work Phone: [facility] [employer] [facility] 12-03-2023 15:56-0400 Body temperature 98.6 [degF] Jonathon Tobin MD Work Phone: [facility] [employer] [facility] 12-03-2023 15:56-0400 Diastolic blood pressure 84 mm[Hg] Jonathon Tobin MD Work Phone: [facility] [employer] [facility] 12-03-2023 15:56-0400 Heart rate 87 /min Jonathon Tobin MD Work Phone: [facility] [employer] [facility] 12-03-2023 15:56-0400 Respiratory rate 16 /min Jonathon Tobin MD Work Phone: [facility] [employer] [facility] 12-03-2023 15:56-0400 SaO2% (BldA) [Mass fraction] 98 % Jonathon Tobin MD Work Phone: [facility] [employer] [facility] 12-03-2023 15:56-0400 Systolic blood pressure 129 mm[Hg] Jonathon Tobin MD Work Phone: [facility] [employer] [facility] 12-03-2023 05:10-0400 Body mass index (BMI) [Ratio] 32.03 kg/m2 Jonathon Tobin MD Work Phone: [facility] [employer] [facility] 12-03-2023 05:10-0400 Body weight 76.89 kg Jonathon Tobin MD Work Phone: [facility] [employer] [facility] 12-02-2023 03:27-0400 Body height 154.9 cm Jonathon Tobin MD Work Phone: [facility] 02-26-2023 08:42-0400 Body temperature 97.6 [degF] PHYSICIAN NO [facility] 02-26-2023 08:42-0400 Diastolic blood pressure 90 mm[Hg] PHYSICIAN NO [facility] 02-26-2023 08:42-0400 Heart rate 89 /min PHYSICIAN NO [facility] 02-26-2023 08:42-0400 Respiratory rate 16 /min PHYSICIAN NO [facility] 02-26-2023 08:42-0400 SaO2% (BldA) [Mass fraction] 100 % PHYSICIAN NO [facility] 02-26-2023 08:42-0400 Systolic blood pressure 135 mm[Hg] PHYSICIAN NO [facility] 02-23-2023 09:26-0400 Body height 154.94 cm PHYSICIAN NO [facility] 02-23-2023 09:26-0400 Body weight 81.64 kg PHYSICIAN NO [facility] 10-07-2022 03:06-0400 Body weight 80.[address] RACHID GLEZ . [facility] Comment on above: Performed By: #### AFPMAT #### [facility] [address] [place] [address] Dr. Calin Marshall 07-17-2019 11:48-0500 BMI (Body Mass Index) 34.2 kg/m2 Vikas Garrido [facility] Work Phone: 07-17-2019 11:48-0500 Body Temperature 99.2 [degF] Vikas Garrido [facility] Work Phone: Comment on above: Method: Oral 07-17-2019 11:48-0500 Body weight 86.18 kg Vikas Garrido [facility] Work Phone: 07-17-2019 11:48-0500 BP Diastolic 92 mm[Hg] Vikas Garrido [facility] Work Phone: 07-17-2019 11:48-0500 BP Systolic 150 mm[Hg] Vikas Jeremiah [facility] Work Phone: 07-17-2019 11:48-0500 BSA (Body Surface Area) 1.88 m2 Vikas Jeremiah [facility] Work Phone: 07-17-2019 11:48-0500 Height 158.75 cm Vikas Jeremiah [facility] Work Phone: 07-17-2019 11:48-0500 0 1 Vikas Jeremiah [facility] Work Phone: Comment on above: Pain Scale 06-21-2019 11:01-0500 BMI (Body Mass Index) 32.94 kg/m2 Vikas Jeremiah [facility] Work Phone: 06-21-2019 11:01-0500 Body weight 83.01 kg Vikas Jeremiah [facility] Work Phone: 06-21-2019 11:01-0500 BP Diastolic 80 mm[Hg] Vikas Jeremiah [facility] Work Phone: Comment on above: Location: [facility]; Position: Sitting 06-21-2019 11:01-0500 BP Systolic 138 mm[Hg] Vikas Jeremiah [facility] Work Phone: Comment on above: Location: [facility]; Position: Sitting 06-21-2019 11:01-0500 BSA (Body Surface Area) 1.85 m2 Vikas Jeremiah [facility] Work Phone: 06-21-2019 11:01-0500 Height 158.75 cm Vikas Jeremiah [facility] Work Phone: 06-21-2019 11:01-0500 0 1 Vikas Jeremiah [facility] Work Phone: Comment on above: Pain Scale Encounters Encounter Date Encounter Type Care Provider Facility Start: 02-23-2024 End: 02-23-2024 ambulatory [facility] Start: 02-23-2024 Encounter for genera l adult medical examination without abnormal findings [facility] Start: 02-23-2024 End: 02-23-2024 ambulatory [facility] Start: 02-23-2024 Encounter for genera l adult medical examination without abnormal findings [facility] Start: 02-02-2024 End: 02-02-2024 ambulatory [facility] Start: 01-24-2024 Telephone encounter Shala evangelista MD Work Phone: General Surgery Comment on above: Hospital Admissions Officer - [facility] Start: 01-23-2024 End: 01-23-2024 ambulatory SHALA PRINCE Facility:[facility] Start: 01-23-2024 End: 01-23-2024 Patient encounter procedure Shala Prince MD Work Phone: General Surgery Comment on above: Chronic biliary panc reatitis (HCC) (Primary Dx) Start: 01-15-2024 End: 01-15-2024 ambulatory [facility] Start: 01-15-2024 End: 01-15-2024 Subsequent hospital visit by physician Braden Hawk MD Work Phone: [facility] Comment on above: Calculus of bile [...] - Other Start: 12-22-2023 End: 12-22-2023 ambulatory [facility] Start: 12-22-2023 End: 12-22-2023 ambulatory [facility] Start: 12-13-2023 End: 12-14-2023 Evaluation and management of inpatient BRADEN GEN[facility] Start: 12-01-2023 End: 12-03-2023 Evaluation and management of inpatient Jonathon Tobin MD Work Phone: [facility] Med Surg Comment on above: Metabolic acidosis ( Primary Dx); Transaminitis; Hyperbilirubinemia Start: 11-30-2023 End: 11-30-2023 Evaluation and management of inpatient JUDI Moreno [facility] Start: 11-30-2023 End: 11-30-2023 Evaluation and management of inpatient [facility] Start: 11-29-2023 End: 11-29-2023 ambulatory [facility] Start: 11-22-2023 End: 11-22-2023 ambulatory [facility] Start: 02-27-2023 End: 02-27-2023 ambulatory Celestina Solis Facility:[facility] Start: 02-27-2023 End: 02-27-2023 ambulatory PHYSICIAN NO [facility] Work Phone: Start: 02-27-2023 End: 02-27-2023 Patient encounter procedure PHYSICIAN NO [facility]- Visit Work Phone: Start: 02-23-2023 End: 02-26-2023 Evaluation and management of inpatient Diana Nataprawira Facility:[facility] Start: 02-23-2023 End: 02-26-2023 Evaluation and management of inpatient PHYSICIAN NO [facility] [address] Work Phone: Start: 01-31-2023 End: 01-31-2023 ambulatory PHYSICIAN NO FAMILY Facility:[facility] Start: 01-31-2023 End: 01-31-2023 ambulatory DO Diana Nataprawira Work Phone: [facility] Work Phone: Start: 01-31-2023 End: 01-31-2023 Departed Referred DO Diana Nataprawira Work Phone: [facility] [place] Work Phone: Start: 10-19-2022 End: 10-20-[address] RACHID GLEZ . Facility:[facility] Start: 10-05-2022 End: 10-06-[address] RACHID GLEZ . Facility:[facility] Start: 09-07-2022 Encounter for gynecological examination (general) (routine) without abnormal findings DR RACHID GLEZ . [facility] Start: 09-05-2022 End: 09-05-[address] [...] 06-21-2019 Patient encounter procedure Vikas Garrido [facility] Work Phone: Patient encounter status Mia Ambrose Elías [facility] Work Phone: Procedures Date Procedure Procedure Detail Performing Clinician Start: 01-15-2024 Fluoroscopy during operation Braden Hawk MD Work Phone: Start: 01-15-2024 Urine test visual color cmprsn meths Braden Hawk MD Work Phone: Start: 12-03-2023 Assay of phosphorus inorganic Gia Deutsch [employer]VERSION [employer]EL[employer] Work Phone: Start: 12-03-2023 COMPREHENSIVE METABO LIC W/ BILI PROFILE W/ REFLEX TO MG Braden Hawk MD Work Phone: Start: 12-02-2023 Fluoroscopy during operation Braden Hawk MD Work Phone: Start: 12-02-2023 Urinalysis microscop ic only Gia Deutsch [employer]VERSION DEVEL[employer] Work Phone: Start: 12-02-2023 Urnls dip stick/tabl et rgnt auto w/o microscopy Gia Deutsch CONVERSION DEVEL[employer] Work Phone: Start: 12-02-2023 CULTURE, BLOOD 1 Gia Deutsch CONVERSION DEVEL[employer] Work Phone: Start: 12-02-2023 Assay of lipase Gia W inters CONVERSION DEVELOPER [employer] Work Phone: Start: 12-01-2023 Blood count complete automated Gia Deutsch CONVERSION DEVELOPER [employer] Work Phone: Start: 12-01-2023 History of cholecystectomy S/P evelina cystectomy Jonathon Tobin MD Work Phone: Start: 02-23-2023 Antibody screen PHYSICI AN NO FAMILY Comment on above: Result Comment: PERF ORMED BY: [address] [place] [address] PATHOLOGIST TRANSCRIBING MACHINE MECHANIC FLORY JAIN M.D. Start: 02-23-2023 Urine culture [...] DTaP/Tdap/Td vaccine (2 - Td or Tdap) [facility] Start: 02-24-2033 Urine microalbumin profile DTaP,Tdap,Td Vaccine (2 - T d or Tdap) [facility] Start: 03-10-2024 Influenza vaccination [facility] Start: 02-08-2024 Influenza vaccination [facility] Start: 01-23-2024 End: 04-23-2024 CBC W Auto Differential panel - Blood COMPLETE BLOOD COUNT AND DIFFERENTIAL Lab Routine Chronic biliary pancreatitis (HCC) Expected: 01/23/2024, Expires: 04/23/2024 [facility] Work Phone: Comment on above: Expected: 01/23/2024, Expires: Start: 01-23-2024 End: 04-23-2024 Comprehensive metabolic 2000 panel - Serum or Plasma COMPREHENSIVE METABOLIC PANEL Lab Routine Chronic biliary pancreatitis (HCC) Expected: 01/23/2024, Expires: 04/23/2024 [facility] Comment on above: Expected: 01/23/2024, Expires: Start: 01-23-2024 End: 01-23-2024 Patient encounter procedure 01/23/2024 11:00 AM EDT [facility] [address] [place] [address] [place] [address] [address] [address] New Consult Chronic Pancreatitis General Surgery Comment on above: New Consult Chronic Pancreatitis Start: 01-15-2024 End: 01-15-2024 Ercp dx collection specimen brushing/washing ENDOSCOPIC RETROGRADE CHOLANGIOPANCREATOGRAPHY Calculus of bile duct with acute and chronic cholangitis without obstruction 01/15/2024 2:10 PM EDT [facility] Start: 01-15-2024 End: 01-15-2024 Esophagogastroduodenoscopy transoral diagnostic ESOPHAGOGASTRODUODENOSCOPY Calculus of bile duct with acute and chronic cholangitis without obstruction 01/15/2024 2:10 PM EDT [facility] Start: 01-15-2024 End: 01-15-2024 Gi endoscopic us s&i ENDOSCOPIC ULTRASOUND Calcul us of bile duct with acute and chronic cholangitis without obstruction 01/15/2024 2:10 PM EDT [facility] Start: 12-11-2023 End: 03-04-2024 Comprehensive Metabolic Panel with Bilirubin Comprehensive Metabolic Panel with Bilirubin Lab Routine Metabolic acidosis Transaminitis Hyperbilirubinemia Expected: 12/11/2023, Expires: 03/04/2024 [facility] Comment on above: Expected: 12/11/2023, Expires: Start: 07-10-2023 Behavioral Health Screening Behavioral Health Screening [facility] Start: 2023 Screening for malignant neoplasm of cervix [facility] Start: 03-10-2023 Covid-19 Vaccine ( season) Covid-19 Vaccine () [facility] Start: 02-26-2023 [facility] Start: 02-24-2023 Hospital admission [facility] Start: 01-31-2023 Following clinical pathway protocol [facility] Start: 01-31-2023 Group B Streptococcus Culture Group B Streptococcus Culture [facility] Start: 2014 Screening for malignant neoplasm of cervix [facility] Start: 2012 Hepatitis B Vaccine (1 of 3 - 19+ 3-dose series) Hepatitis B Vaccine (1 of 3 - 19+ 3-dose series) [facility] Start: 2011 Hepatitis C screening [facility] Start: 2011 HIV screening HIV Screening [facility] Start: 2008 HIV screening HIV screen [facility] Start: 2005 Depression Screen Depression Screen [facility] Start: 1999 Pneumococcal vaccination Pneumococcal Vaccine (1 of 2 - PCV) [facility] Start: 1994 Varicella vaccine (1 of 2 - 2-dose childhood series) Varicella vaccine (1 of 2 - 2-dose childhood series) [facility] Start: 1993 COVID-19 Vaccine (#1) COVID-19 Vaccine (#1) [facility] Start: 1993 Hepatitis B vaccine (1 of 3 - 3-dose series) Hepatitis B vaccine (1 of 3 - 3-dose series) [facility] End: 01-16-2024 Blood glucose - POCT Blood glucose - POCT Point o f Care Testing Routine One Time for 1 Occurrences starting 01/16/2024 until 01/16/2024 [facility] Comment on above: One Time for 1 Occurrences starting 03/2024 until 01/16/2024 End: 12-04-2023 CBC panel - Blood by Automated count CBC Lab Routine Daily for 2 Occurrences starting 12/03/2023 until 12/04/2023, 1 completed [facility] Comment on above: Daily for 2 Occurrences starting 024 until 12/04/2023, 1 completed End: 12-05-2023 Comprehensive Metabolic w/ Bili Profile w/ Reflex to MG Comprehensive Metabolic w/ Bili Profile w/ Reflex to MG Lab Routine Daily for 3 Days starting 12/03/2023 until 12/05/2023, 1 completed [facility] Comment on above: Daily for 3 Days starting 12/03/2023 unt il 12/05/2023, 1 completed Culture, Blood 1 Culture, Blood 1 Microbiology STAT 12/02/2023 8:52 AM EDT [facility] Glucose [Mass/volume ] in Serum or Plasma POCT Glucose Point of Care Testing STAT As Needed until discontinued starting 12/02/2023 [facility] Comment on above: As Needed until discontinued starting End: 01-15-2024 INITIATE PACU OXYGEN THERAPY PROTOCOL Initiate PACU Oxygen Therapy Protocol Respiratory Care Routine Continuous until discontinued starting 01/15/2024 [facility] Work Phone: Comment on above: Continuous until discontinued starting 0 01/15/2024 Intermittent pulse oximetry Puls e Oximetry Spot Check Respiratory Care Routine As Needed until discontinued starting 12/01/2023 [facility] Comment on above: As Needed until discontinued starting Oxygen therapy [Mini mum Data Set] Initiate Oxygen Therapy Protocol Respiratory Care Routine As Needed until discontinued starting 12/01/2023 [facility] Comment on above: As Needed until discontinued starting Oxygen therapy [Mini mum Data Set] Initiate Oxygen Therapy Protocol Respiratory Care Routine As Needed until discontinued starting 01/15/2024 [facility] Work Phone: Comment on above: As Needed until discontinued starting Patient Education Post- Di reynaldo Instructions ([facility]) [facility] Work Phone: Patient referral [facility] Work Phone: End: 01-16-2024 , urine , urine Lab Routine Tomorrow AM for 1 Occurrences starting 01/16/2024 until 01/16/2024 [facility] Comment on above: Tomorrow AM for 1 Occurrences starting 0 01/16/2024 until 01/16/2024 Surgical Pathology Surgical Path ology Lab Routine Calculus of bile duct with acute and chronic cholangitis without obstruction Release Upon Ordering for 1 Occurrences starting 01/15/2024 [facility] Comment on above: Release Upon Ordering for 1 Occurrences starting 01/15/2024 Immunizations Immunization Date Immunization Notes [facility]-2023 tetanus toxoid, redu ramila diphtheria toxoid, and acellular pertussis vaccine, adsorbed PHYSICIAN NO [facility] 04-23-2019 influenza, injectabl e, quadrivalent, preservative free Shala Prince MD Work Phone: [facility] 04-23-2019 influenza virus vaccine, unspecified formulation Shala Prince MD Work Phone: [facility] Payers Date Payer Category Payer Unknown ISAURO CABRERA PPO [id number] 2023-Present [phone] [address] [place] [address] PPO [id number] 2023 Unknown [id number] 1993 Unknown [id number] 2.16.840.1.787082.3.579.2.593 1993 Unknown [id number] 2.16.840.1.624750.3.579.2.593 1993 Unknown [id number] 2.16.840.1.707524.3.579.2.593 1993 Unknown [id number] 2.16.840.1.291449.3.579.2.593 1993 Unknown [id number] 2.16.840.1.675131.3.579.2.593 1993 Unknown [id number] 2.16.840.1.039180.3.579.2.593 1993 Unknown [id number] 2.16.840.1.795140.3.579.2.593 1993 Unknown [id number] 2.16.840.1.831978.3.579.2.593 1993 Unknown [id number] 2.16.840.1.007999.3.579.2.1286 1993 Unknown [id number] 2.16.840.1.428933.3.579.2.128 1993 Unknown [id number] 2.16.840.1.228285.3.579.2.128 1993 Unknown [id number] 2.16.840.1.589909.3.579.2.1286 1993 Unknown [id number] 2.16.840.1.204892.3.579.2.1286 1993 Unknown [id number] 2.16.840.1.659457.3.579.2.177 1993 Unknown [id number] 2.16.840.1.014234.3.579.2.177 1993 Unknown [id number] 2.16.840.1.756409.3.579.2.175 1993 Unknown [id number] 2.16.840.1.972138.3.579.2.1286 1993 Unknown [id number] 2.16.840.1.363352.3.579.2.1286 1993 Unknown [id number] 2.840.1.715922.3.579.2.128 1993 Unknown [id number] 2.840.1.062922.3.579.2.1285 1993 Unknown [id number] 2.840.1.402254.3.579.2.1285 1993 Unknown [id number] 2.840.1.124452.3.579.2.1285 1993 Unknown [id number] 2.840.1.205451.3.579.2.1286 1959 Self-pay 1959 Unknown [id number] 1959 Unknown [id number] Unknown [id number] 2..840.1.876832.3.579.2.593 Unknown HCAP/HFA/FAP Active [id number] Unknown [id number] 2..840.1.547028.3.579.2.531 Unknown [id number] 2840.1.473854.3.579.2.531 Unknown [id number] 2..840.1.086880.3.579.2.531 Social History Date Type Detail Facility Start: 1995 Sex Assigned At Female F [facility] Start: 02-23-2023 End: 12-01-2023 Tobacco smoking status NHIS Never smoked tobacco (finding) [facility] Start: 12-01-2023 End: 01-23-2024 Tobacco use and exposure [facility] Start: 12-01-2023 End: 01-15-2024 Alcohol intake Ex-drinker (finding) [facility] Start: 12-01-2023 End: 12-26-2023 History of Social function [facility] Start: 12-01-2023 End: 12-26-2023 Tobacco use panel [facility] Physical abuse Denies [facility] Start: 1995 Sex Assigned At Not on file [facility] [employer] [facility] Start: 01-26-2021 End: 01-23-2024 Tobacco smoking status NHIS Smokes tobacco daily [facility] Start: 01-26-2021 End: 01-23-2024 Tobacco Comment Smokes Marijuana* [facility] Has the electric, Rupture s, [employer], or water company threatened to shut off services in your home in past 12Mo No [facility] (I/We) worried [facility] er (my/our) food would run out before (I/we) got money to buy more. Never true [facility] At any time in the past 12 months, were you homeless or living in long-term [including now]? Yes [facility] NEGATED: Highlighted row - - [facility] Work Phone: Medical Equipment Procedure Code Equipment Code Equipment Origin al Text Equipment Identifier Dates Stent Bili L60mm Dia8mm Cath 8.5fr L194cm Gwire 0.035in Mtl - [id number] , [id number] FDA Start: 12-02-2023 Stent Bili L60mm Dia8mm Cath 8.5fr L194cm Gwire 0.035in Mtl - [id number] , [id number] FDA Start: 12-13-2023 Goals Date Patient Goal Desired Activity /State Functional Status Date Assessment Result Facility 02-26-2023 Functional status Patient at Baseline [facility] Work Phone: NEGATED: Highlighted row Functional performance Functional status health issues are not documented Disease [facility] Work Phone: Mental Status Date Assessment Result Facility 02-26-2023 Cognitive function Cognitive Sta tus Patient at Baseline [facility] Work Phone: NEGATED: Highlighted row Cognitive function [Interpretation] Cognitive status health issues are not documented Disease [facility] Work Phone: Clinical Notes 02-23-2023 to 01-23-2024 Chris Monterroso MA - 01/23/2024 11:15 AM EDTChris Monterroso MA - 01/23/2024 11:15 AM Shala Chawla [...] Bowels: regular Wound: Temperature: No Drains: No [facility] 01-23-2024 Nurse Note What is the reason for your visit today? Consult Second opinion for chronic pancreatitis Who is your referring physician? Self Are you having poor oral intake? NO Have you had unintentional weight loss of 15 lbs/7 Kg in the last 3-6 months? YES Bowels: regular Wound: Temperature: No Drains: No documented in this encounter [facility] 01-23-2024 History of Presen t illness Narrative Images from the original note were not included. INITIAL PANCREATITIS PATIENT PATIENT NAME: Natalee Alcocer REASON FOR CONSULT: Chronic Biliary Pancreatitis Ascending Cholangitis REQUESTING PHYSICIAN: Self-Referred DATE of SERVICE: 01/22/2024 TIME of SERVICE: 3:11 PM PCP: Zeenat Herndon MD, SOLE MOLDING MACHINE OPERATOR HPI: Ms. Alcocer is a 28 year [...] Amylase: Lipase: Imaging 12/12/2023 CT A/P 11/08/2023 RUQ [facility] Operative Report 11/30/2023 Dr. Pollock 11/02/2023 CT A/P Procedures: 12/13/2023 ERCP/EUS Pancreatic [...] female, primary care physician Zeenat Herndon MD, SOLE MOLDING MACHINE OPERATOR, who is self referred, present to clinic [...] female, primary care physician Zeenat Herndon MD, SOLE MOLDING MACHINE OPERATOR, self-referred to me for an opinion regarding chronic pancreatitis. Patient was recently treated at [facility] in [place] with a cholecystectomy. She presented after the [...] 4 - Moderate documented in this encounter [facility] 01-23-2024 Note HNO ID: [id number] Author: SHALA PRINCE MD Service: ? Author Type: Physician Type: Progress Notes Filed: 01/23/2024 16:22 Note Text: INITIAL PANCREATITIS PATIENT PATIENT NAME: Natalee Alcocer REASON FOR CONSULT: Chronic Biliary Pancreatitis Ascending Cholangitis REQUESTING PHYSICIAN: Self-Referred DATE of SERVICE: 01/22/2024 TIME of SERVICE: 3:11 PM PCP: Zeenat Herndon MD, SOLE MOLDING MACHINE OPERATOR HPI: Ms. Alcocer is a 28 year [...] gallstone/sludge?N/A First diagnoses of pancreatitis? 12/13/2023 Hospital, [facility]? Medication induced pancreatitis? no Hypertriglyceridemia? no Family [...] Amylase: Lipase: Imaging 12/12/2023 CT A/P 11/08/2023 RUQ [facility] Operative Report 11/30/2023 Dr. Pollock 11/02/2023 CT A/P Procedures: 12/13/2023 ERCP/EUS Pancreatic [...] female, primary care physician Zeenat Herndon MD, SOLE MOLDING MACHINE OPERATOR, who is self referred, present to clinic for a second opinion. The nature of chronic biliary pancreatitis was discussed with the patient, patient educated about current con (more content not included)... [facility] 01-15-2024 Hospital Discharg e instructions Braden Hawk MD - 01/15/2024 3:31 PM EDT [facility] POST-ENDOSCOPY INSTRUCTIONS 1. ACTIVITY No driving, operating [...] questions, PLEASE call your doctor or the [facility] GI Unit ([phone]) documented in this encounter [facility] 01-08-2024 Telephone encounter Note Received Operative report from [facility]/ Dr. Pollock dated 11/30/2023, please review. Thank you! [facility] 01-08-2024 Miscellaneous Notes Received Operative report from [facility]/ Dr. Pollock dated 11/30/2023, please review. Thank you! documented in this encounter [facility] 12-29-2023 Telephone encounter Note Images from the original note were not included. Attached are Outside Records From [facility]: [facility] 12-29-2023 Miscellaneous Notes Images from the original note were not included. Attached are Outside Records From [facility]: documented in this encounter [facility] 12-29-2023 Telephone encounter Note Images from the original note were not included. Hepatobiliary Surgery Consult - 28 year old female with chronic biliary pancreatitis requesting second opinion - 11/30/2023 s/p lap evelina by Dr. Hui Pollock at [facility] - 12/01/2023 Presented to [facility] ER with intractable nausea/vomiting and abdominal pain; elevated liver enzymes and jaundice, slightly elevated WBC; transferred to [place] for concern of stone in CBD - 12/02/2023 ERCP for sphincterotomy, balloon sweep, stone and sludge removal, mid CBD stricture and stent placement - 12/13/2023 Presented to [place] ER for worsening RUQ/epigastric pain; elevated bilirubin and leukocytosis 30,000; transferred back to [place]; admitted for ascending cholangitis secondary to stent obstruction. - 12/13/2023 ERCP/EUS revealing distal biliary stricture and upstream CBD dilation. Patient's old biliary stent was removed and new 8 mm x 60 mm stent placed Received Records From: [facility]- [phone] -ER summary 12/01/23 and 12/13/2023 -11/02/23 CT A/p, 11/08/23 US RUQ, 12/12/23 CT A/P [facility] ph [phone] fx [phone] -Lap evelina operative note [facility] ph [phone] fx [phone] -12/12- Discharge Summary -12/02/23 ERCP, 12/13/23 ERCP/EUS Records Review Imagin12/12/2023 CT A/P 11/08/2023 US RUQ 11/02/2023 CT A/P Procedures: 12/13/2023 ERCP/EUS Pathology: Biospy Cytology [facility] 12-29-2023 Miscellaneous Notes Images from the original note were not included. Hepatobiliary Surgery Consult - 28 year old female with chronic biliary pancreatitis requesting second opinion - 11/30/2023 s/p lap evelina by Dr. Hui Pollock at [facility] - 12/01/2023 Presented to [facility] ER with intractable nausea/vomiting and abdominal pain; elevated liver enzymes and jaundice, slightly elevated WBC; transferred to [place] for concern of stone in CBD - 12/02/2023 ERCP for sphincterotomy, balloon sweep, stone and sludge removal, mid CBD stricture and stent placement - 12/13/2023 Presented to [place] ER for worsening RUQ/epigastric pain; elevated bilirubin and leukocytosis 30,000; transferred back to [place]; admitted for ascending cholangitis secondary to stent obstruction. - 12/13/2023 ERCP/EUS revealing distal biliary stricture and upstream CBD dilation. Patient's old biliary stent was removed and new 8 mm x 60 mm stent placed Received Records From: [facility]- ph [phone] -ER summary 12/01/23 and 12/13/2023 -11/02/23 CT A/p, 11/08/23 US RUQ, 12/12/23 CT A/P [facility] ph [phone] fx [phone] -Lap evelina operative note [facility] ph [phone] fx [phone] -12/12- Discharge Summary -12/02/23 ERCP, 12/13/23 ERCP/EUS Records Review Imagin12/12/2023 CT A/P 11/08/2023 US RUQ 11/02/2023 CT A/P Procedures: 12/13/2023 ERCP/EUS Pathology: Biospy Cytology documented in this encounter [facility] 12-03-2023 Hospital Discharg e instructions Gia Deutsch APRN - NP - 12/03/2023 12:04 PM EDT Return to the hospital if increasing abdominal pain, fever > 101, nausea/ vomiting, yellowing of eyes or skin Follow up with gastroenterology in 2 weeks Obtain labs in 1 week Take medications as prescribed Follow up with family doctor within 1 week. The following attachments cannot be sent through Care Everywhere.sodium bicarbonate (Yemeni)ciprofloxacin (oral) (Yemeni)documented in this encounter [facility] 12-03-2023 History of Presen t illness Narrative Images from the original note were not included. [facility] Office: [phone] Darek Randall DO, Mike Carter DO, Kadeem Neumann DO, Maik Guaman DO, Jonathon Tobin MD, Judy Campbell MD, Joey Rodriguez MD, [...] Walter Jaramillo MD, Trevor Greene MD, Stacey Mckenzie, SOLE MOLDING MACHINE OPERATOR, Radha Prajapati, SOLE MOLDING MACHINE OPERATOR, Georges Nunez, SOLE MOLDING MACHINE OPERATOR, Elvia Johnson, ELLYN, Gia Deutsch, SOLE MOLDING MACHINE OPERATOR, Ivanna Gallegos, SOLE MOLDING MACHINE OPERATOR, Piper Prater, SOLE MOLDING MACHINE OPERATOR, María Elena Guaman, SOLE MOLDING MACHINE OPERATOR, Suzanne Quevedo, PAAlishaC, Bonny Rogers, PA-C, Geovanna Burch, SOLE MOLDING MACHINE OPERATOR, Sarai Barahona, SOLE MOLDING MACHINE OPERATOR, Kalin Short, SOLE MOLDING MACHINE OPERATOR, Ashley Munoz, SOLE MOLDING MACHINE OPERATOR, Mar Roach, SOLE MOLDING MACHINE OPERATOR, Laya Badillo, [facility], Kirstin Trinh, SOLE MOLDING MACHINE OPERATOR, Isabel Lopez, SOLE MOLDING MACHINE OPERATOR, Radha Cummins, SOLE MOLDING MACHINE OPERATOR [facility] IN-PATIENT SERVICE [facility] Progress Note 12/03/2023 10:09 AM Name: Natalee Alcocer Acct: [id number] Room: IP Day: 2 Admit Date: 12/01/2023 [...] was initially evaluated in the ED at [facility]. Her wBC was 19.4 and she was given IV Zosyn. She was afebrile. Her liver enzymes were also elevated- AST 198, ALT 522, alk phos 260. Bilirubin was also elevated at 7.6, direct bilirubin 4.6. since no GI services are available at [facility], patient requested to be transferred to [facility]. Dr Dolan the ED provider spoke with [facility] GI sewing machine operator floorperson and discovered ERCP services are not available this weekend, so spoke with Dr Locke from who agreed to see the patient on consult at [facility] for ERCP as the patient's surgeon Dr Pollock suspects she has a stone in the CBD. She was transferred to [facility] for further management of transaminitis, [...] She reports current drug use. Drug: Marijuana ([place]). Family History: Family History Problem Relation Age [...] Net -1257.62 ml Labs: Hematology: Recent Labs 12/01/23201912/02/2352412/03/23 0521 WBC 14.2* 13.4* 11.4* RBC 4.60 4.42 4.37 HGB 13.7 13.1 12.9 HCT 42.9 40.4 40.1 MCV 93.3 91.4 91.8 MCH 29.8 29.6 29.5 MCHC 31.9 32.4 32.2 RDW 13.3 13.5 13.3 PLT 323 352 375 MPV 9.6 9.7 9.7 INR -- 1.1 -- Chemistry: Recent Labs 12/02/2352412/03/23 0521 NA 134* 134* K 4.3 4.1 CL 103 103 CO2 12* 17* GLUCOSE 65* 98 BUN 6 7 CREATININE 0.6 0.6 MG 1.9 -- ANIONGAP 19* 14 LABGLOM >90 >90 CALCIUM 9.2 9.5 PHOS 1.5* 2.0* Recent Labs 12/02/23 0525 12/03/23 0521 AST 108* 120* ALT 352* 370* [...] 12/02/2023 Yes Hypophosphatemia 12/02/2023 Yes Plan: Transaminitis: MANAGING SUPERVISOR completed and CBD stent placed. Advance diet [...] from the original note were not included. [facility] Office: [phone] Darek Randall DO, Mike Carter DO, Kadeem Neumann DO, Maik Guaman DO, Jonathon Tobin MD, Judy Campbell MD, Joey Rodriguez MD, [...] Walter Jaramillo MD, Trevor Greene MD, Stacey Mckenzie, SOLE MOLDING MACHINE OPERATOR, Radha Prajapati, SOLE MOLDING MACHINE OPERATOR, Georges Nunez, SOLE MOLDING MACHINE OPERATOR, Elvia Johnson, [facility], Gia Deutsch, SOLE MOLDING MACHINE OPERATOR, Ivanna Gallegos, SOLE MOLDING MACHINE OPERATOR, Piper Prater, SOLE MOLDING MACHINE OPERATOR, María Elena Guaman, SOLE MOLDING MACHINE OPERATOR, EDWIGE RichmondC, EDWIGE DudleyC, Geovanna Burch, SOLE MOLDING MACHINE OPERATOR, Sarai Barahona, SOLE MOLDING MACHINE OPERATOR, Kalin Short, SOLE MOLDING MACHINE OPERATOR, Ashley Munoz, SOLE MOLDING MACHINE OPERATOR, Mar Roach, SOLE MOLDING MACHINE OPERATOR, Laya Badillo, [facility], Kirstin Trinh, SOLE MOLDING MACHINE OPERATOR, Isabel Lopez, SOLE MOLDING MACHINE OPERATOR, Radha Cummins, SOLE MOLDING MACHINE OPERATOR [facility] IN-PATIENT SERVICE [facility] Progress Note 12/02/2023 8:36 AM Name: Natalee Alcocer Acct: [id number] Room: Day: 1 Admit Date: 12/01/2023 6:34 [...] was initially evaluated in the ED at [facility]. Her wBC was 19.4 and she was given IV Zosyn. She was afebrile. Her liver enzymes were also elevated- AST 198, ALT 522, alk phos 260. Bilirubin was also elevated at 7.6, direct bilirubin 4.6. since no GI services are available at [facility], patient requested to be transferred to [facility]. Dr Dolan the ED provider spoke with [facility] GI sewing machine operator floorperson and discovered ERCP services are not available this weekend, so spoke with Dr Locke from who agreed to see the patient on consult at [facility] for ERCP as the patient's surgeon Dr Pollock suspects she has a stone in the CBD. She was transferred to [facility] for further management of transaminitis, [...] She reports current drug use. Drug: Marijuana ([place]). Family History: Family History Problem Relation Age [...] notified of patient's temperature of 100.8 F. PROTOTYPE SPECIAL BUILD stated to continue to monitor temp for now. No new orders received. Patient arrived via EMS transport from [facility]. Patient oriented to room, orders released and reviewed. Patient resting in bed with call light in reach, side rails up x2, bed alarm on. documented in this encounter [facility] 02-26-2023 Progress note Note Date/Time February 26, 2023 9:01am [facility] [address] [place] [address] RECORD CHANGER TESTER Progress Note Signed Patient: Natalee Alcocer MR#: [id number] : 1995 Acct:[id number] Age/Sex: 27 / F Adm Date: 3 Loc: Room: [address] [place] [address] Type: ADM IN Attending Dr: Diana Sorenson DO Copies to: ~ Date of Service: 02/26/2023 OB - PN: Subj Subjective Post Delivery Day #: Day 3 Interval history: Patient doing well, no concerns. Feels much better today, no gas pains. Tolerating PO well, passing flatus Patient comments: pain well controlled, tolerating diet, flatus present (flatus present, no BM) and other; no incisional pain [place] baby status: doing well feeding status: exclusively [...] % (Auto) 78.0, Lymph % (Auto) 14.7, [place] % (Auto) 6.6, Eos % (Auto) 0.3, Baso % (Auto) 0.4, Nucleat RBC Rel Count 0.0, Neut# (Auto) 12.2 H, Lymph # (Auto) 2.3, [place] # (Auto) 1.0 H, Eos # (Auto) [...] signed by Mitra Degroot DO> 02/26/23 0901 [facility] Work Phone: 1(582) 419-689808-19-2023 Progress note Author Mitra Degroot [facility] February 25, 2023 9:32am Note Date/Time February 25, 2023 9: 32am [facility] [address] [place] [address] RECORD CHANGER TESTER Progress Note Signed Patient: Natalee Alcocer MR#: [id number] : 1995 Acct:[id number] Age/Sex: 27 / F Adm Date: 3 Loc: Room: [address] [place] [address] Type: ADM IN Attending Dr: Diana Sorenson [...] night) and flatus present; no incisional pain [place] baby status: doing well [place] feeding status: [...] % (Auto) 77.7, Lymph % (Auto) 15.8, [place] % (Auto) 6.3, Eos % (Auto) 0.0, Baso % (Auto) 0.2, Nucleat RBC Rel Count 0.0, Neut# (Auto) 15.1 H, Lymph # (Auto) 3.1, [place] # (Auto) 1.2 H, Eos # (Auto) [...] signed by Mitra Degroot DO> 02/25/23 0932 [facility] Work Phone: 1(588) 525-984408-18-2023 Progress note Author -GURVINDER Kendall [facility] February 24, 2023 11:53am Note Date/Time February 24, 2023 11 :53am [facility] [address] [place], [place] [id number] RECORD CHANGER TESTER Progress Note Signed Patient: Natalee Alcocer MR#: [id number] : 1995 Acct:[id number] Age/Sex: 27 / F Adm Date: 3 Loc: Room: [address] [place] [address] Type: ADM IN Attending Dr: Diana Sorenson [...] % (Auto) 70.6, Lymph % (Auto) 23.1, [place] % (Auto) 5.5, Eos % (Auto) 0.4, Baso % (Auto) 0.4, Nucleat RBC Rel Count 0.0, Neut# (Auto) 9.0 H, Lymph # (Auto) 2.9, [place] # (Auto) 0.7, Eos # (Auto) 0.0, Baso # (Auto) 0.0 02/23/23 09:48: RPR w/Rflx to Titer Non reactive 02/23/23 09:34: Urine Opiates Screen Negative, Ur Barbiturates Screen Negative, Ur Phencyclidine Scrn Negative, Ur Amphetamines Screen Negative, U Benzodiazepines Scrn Negative, Urine Cocaine Screen Negative 02/23/23 09:34: Urine Color Yellow, Urine Appearance Cloudy A, Urine pH 7.0, Ur Specific [place] 1.016, Urine Protein 30 H, Urine Glucose [...] by CHRISTIANO Kendall> 02/24/23 1153 [facility] Work Phone: 1(128) 255-297108-17-2023 Procedure noteAden[facility] CenterEvaluation noteNo assessment information availableC[facility] Work Phone: Evaluation note* Diagnosis Onset Date Resolution Status delivery delivered acute [facility] Work Phone: Evaluation note* Diagnosis Transaminitis- Primary Nonspecific elevation of [...] of phosphorus metabolism documented in this encounter [facility] note* Diagnosis Chronic biliary pancreatitis (HCC)- Primary documented in this encounter [facility] note* Diagnosis Calculus of bile duct with acute and chronic cholangitis without obstruction Calculus of bile duct without mention of cholecystitis or obstruction Chronic pancreatitis (HCC) Chronic pancreatitis documented in this encounter [facility] note* Diagnosis Chronic biliary pancreatitis (HCC)- Primary documented in this encounter [facility]* Name Dates Details Instructions not documented [facility] Work Phone: Summary Purpose Family History No [...] 4. 5. 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 [...] section and content) DATE CREATED AUTHOR 07/02/2019 [facility] DATE CREATED AUTHOR AUTHOR'S ORGANIZ ATION 07/17/2019 [facility] DATE CREATED AUTHOR AUTHOR'S ORGANIZ ATION 06/16/2020 [facility] DATE CREATED AUTHOR AUTHOR'S ORGANIZ ATION 08/10/2021 [facility] dical Specialist DATE CREATED AUTHOR AUTHOR'S ORGANIZ ATION 10/24/2022 [facility] DATE CREATED AUTHOR AUTHOR'S ORGANIZ ATION 03/07/2023 [place] DATE CREATED AUTHOR AUTHOR'S ORGANIZ ATION 12/09/2023 [facility] DATE CREATED AUTHOR AUTHOR'S ORGANIZ ATION 01/22/2024 [facility] DATE CREATED AUTHOR AUTHOR'S ORGANIZ ATION 01/27/2024 [facility] DATE CREATED AUTHOR AUTHOR'S ORGANIZ ATION 02/18/2024 [facility] DATE CREATED AUTHOR AUTHOR'S ORGANIZ ATION 02/24/2024 [facility] DATE CREATED AUTHOR AUTHOR'S ORGANIZ ATION 02/25/2024 [facility] Teams (unrecognized sec tion and content) Team Status: Inactive Member Role Status Dates Diana Sorenson DO Attending Provider Active Team Status: Active Member Role Status Dates Celestina Ely NP-Karina Primary Care Provider Active Team Status: Inactive Member Role Status Dates Diana Sorenson DO Attending Provider Active PHYSICIAN NO FAMILY Primary Care Provider Active Team Status: Inactive Member Role Status Dates Diana Sorenson DO Admit Provider, Attending Provid er Active Celestina Ely NP-C Primary Care Provider Active Team Status: Inactive Member Role Status Dates Celestina Ely NP-Karina Primary Care Provider Active Lilia Huber MD Attending Provider Active Crew Person Relationship Specialty Start Date End Date Zeenat Herndon, SOLE MOLDING MACHINE OPERATOR [address] [place] [address] PCP - General Family Medicine 08/28/19 Annamarie Ochoa APRN [address] [place] [address] Referring Family Medicine 11/24/20 Crew Person Relationship Specialty Start Date End Date Zeenat Herndon CNP [address] [place] [address] PCP - General Family Medicine 08/28/19 Annamarie Ochoa APRN [address] [place] [address] Referring Family Medicine 11/24/20 Crew Person Relationship Specialty Start Date End Date Zeenat Herndon SOLE MOLDING MACHINE OPERATOR [address] [place] [address] PCP - General Family Medicine 08/28/19 Annamarie Ochoa APRN [address] [place] [address] Referring Family Medicine 11/24/20 Crew Person Relationship Specialty Start Date End Date Anup Bruce APRN - SOLE MOLDING MACHINE OPERATOR [address] [place] [address] PCP - General Family Medicine 12/14/23 Crew Person Relationship Specialty Start Date End Date Zeenat Herndon SOLE MOLDING MACHINE OPERATOR [address] [place] [address] PCP - General Family Medicine 08/28/19 Annamarie Ochoa APRN [address] [place] [address] Referring Family Medicine 11/24/20 Crew Person Relationship Specialty Start Date End Date Zeenat Herndon CNP [address] [place] [address] PCP - General Family Medicine 08/28/19 Annamarie Ochoa APRN [address] [place] [address] Referring Family Medicine 11/24/20 Goals (unrecognized section [...] minutes - Dilute with 10 mL NS 2142 (Given - Provider: Dalila Patton, HALEY) 1006 (Given - Provider: Pricila Rice, HALEY)1544 (MAR Hold - Provider: Kristyn Autohold - Reason: Unreviewed Transfer Orders)1846 (MAR Unhold - Provider: Vicenta Fulton, HALEY)202 (Given - Provider: Margie Hamm, HALEY) 0816 (Given - Provider: Jayne Magana RN)2100 (Due) indomethacin (INDOCIN) 100 MG suppository 100 mg 100 mg, Rectal, ONCE, 1 dose, On 5/25/24 at 1630 1848 (Not Given - Provider: Vicenta Fulton RN - Reason: Other) piperacillin-tazobactam (ZOSYN) 3,375 mg in sodium chloride 0.9 % 50 mL IVPB (mini-bag) 3,375 mg, IntraVENous, EVERY 8 HOURS, First dose on Mon12/01/23 at 2030, Until Discontinued, Antimicrobial Indications: Intra-Abdominal Infection, Patient got Zosyn 3375mg at 1236 at [facility] today, appropriate to start first dose here at 2030 2149 (New Bag - Provider: Dalila Patton RN) 0149 (Stopped - Provider: Dalila Patton RN)0414 (New Bag - Provider: Dalila Patton RN)0522 (Rate/Dose Verify - Provider: Dalila Patton RN)0749 (Rate/Dose Verify - Provider: Margie Hamm RN)0756 (Rate/Dose Verify - Provider: Margie Hamm RN)0814 (Stopped - Provider: Vicenta Fulton RN)1418 (New Bag - Provider: Vicenta Fulton RN)1539 (Stopped - Provider: Margie Hamm, HALEY)1544 (MAR Hold - Provider: Mar Autohold - Reason: Unreviewed Transfer Orders)1818 (Stopped - Provider: Vicenta Fulton RN)1846 (MAR Unhold - Provider: Vicenta Fulton, HALEY)2034 (New Bag - Provider: Margie Hamm RN) 0034 (Stopped - Provider: Margie Hamm RN)0511 (New Bag - Provider: Margie Hamm RN)0512 (Rate/Dose Verify - Provider: Margie Hamm RN)0911 (Stopped - Provider: Jayne Magana, RN)1228 (New Bag - Provider: Jayne Magana, RN)1628 (Stopped - Provider: Jayne Magana, RN)2030 (Due) sodium chloride flush 0.9 % [...] Fulton RN - Reason: IV Fluid Infusing)1544 (SEP Hold - Provider: Mar Autohold - Reason: Unreviewed Transfer Orders)1846 (SEP Unhold - Provider: Vicenta Fulton RN)2013 (Not Given - Provider: Margie Hamm RN - Reason: IV Fluid Infusing) 0818 (Given - Provider: Jayne Magana RN)2100 (Due) sodium phosphate 20 mmol in sodium chloride 0.9 % 500 mL IVPB (COMPLETED) 20 mmol, IntraVENous, at 125 mL/hr, Administer over 240 Minutes, ONCE, On Mon12/02/23 at 0745, For 1 dose 1146 (New Bag - Provider: Vicenta Fulton, RN)1546 (Stopped - Provider: Vicenta Fulton RN) sodium phosphate 20 mmol in sodium chloride 0.9 % 500 mL IVPB (COMPLETED) 20 mmol, IntraVENous, at 125 mL/hr, Administer over 240 Minutes, ONCE, On Mon12/03/23 at 1030, For 1 dose 1226 (New Bag - Provider: Jayne Magana, RN)1626 (Stopped - Provider: Jayne Magana RN) Continuous Medication Order 12/01/2023 12/02/2023 12/03/2023 0.9 % sodium chloride infusion (CANCELED) IntraVENous, at 125 mL/hr, CONTINUOUS, Starting on Mon12/01/23 at 1900 1851 (New Bag - Provider: Anne Shafer RN) 0252 (Rate/Dose Change - Provider: Dalila Patton RN)0256 (Rate/Dose Change - Provider: Dalila Patton, RN)0259 (New Bag - Provider: Dalila Patton, HALEY)0522 (Rate/Dose Verify - Provider: Dalila Patton RN)1544 (SEP Hold - Provider: [facility] Autohold - Reason: Unreviewed Transfer Orders)1846 (SEP Unhold - Provider: Vicenta Fulton RN) sodium bicarbonate 150 mEq in dextrose 5 % 1,000 mL infusion IntraVENous, at 50 mL/hr, CONTINUOUS, Starting on 12/02/23 at 0815 1147 (New Bag - Provider: Vicenta Fulton RN)1544 (SEP Hold - Provider: [facility] Autohold - Reason: Unreviewed Transfer Orders)1846 (SEP Unhold - Provider: Vicenta Fulton RN) 1639 (Stopped - Provider: Jayne Magana RN) PRN Medication Order 12/01/2023 12/02/2023 12/03/2023 0.9 % sodium chloride infusion IntraVENous, at 5-250 mL/hr, PRN, if patient receiving piggyback infusions and maintenance fluids are not ordered OR KVO fluids to protect IV site / prevent frequent line interruptions/ long duration, Starting on 12/01/23 at 1837, For piggyback infusion, administer at [...] of order. 1544 (SEP Hold - Provider: [facility] Autohold - Reason: Unreviewed Transfer Orders)1846 (SEP Unhold - Provider: Vicenta Fulton RN)203 (New Bag - Provider: Margie Hamm RN)203 [...] 60 minutes, discontinue dextrose 10% infusion. 1544 ([facility] Hold - Provider: [facility] Autohold - Reason: Unreviewed Transfer Orders)184 ([facility] Unhold - Provider: Vicenta Fulton RN) dextrose [...] 10% at 100 mL/hour and notify provider. 154 ([facility] Hold - Provider: [facility] Autohold - Reason: Unreviewed Transfer Orders)184 ([facility] Unhold - Provider: Vicenta Fulton RN) dextrose bolus 10% 250 mL(Linked Group 1) [...] at 100 mL/hour and notify provider. 1544 ([facility] Hold - Provider: [facility] Autohold - Reason: Unreviewed Transfer Orders)184 ([facility] Unhold - Provider: Vicenat Fulton RN) diphenhydrAMINE (BENADRYL) injection 25 mg 25 mg, IntraVENous, EVERY 6 HOURS PRN, Starting on Mon12/01/23 at 2008, Until Discontinued, Itching, Other, allergic reaction, IV Push at rate not to exceed 25 mg/min. 1544 ([facility] Hold - Provider: [facility] Autohold - Reason: Unreviewed Transfer Orders)1845 ([facility] Unhold - Provider: Vicenta Fulton, RN) glucagon injection 1 mg 1 mg, IntraMUSCular, PRN, Starting on 12/02/23 at 0741, Until Discontinued, Low blood sugar, Blood glucose less than 70 mg/dL and patient NOT ALERT or NPO and does not have IV access., After administration, attempt intravenous access and start D5W at 100 mL/hr. Repeat blood glucose in 15 minutes x2 and notify provider. 154 ([facility] Hold - Provider: [facility] Autohold - Reason: Unreviewed Transfer Orders)1845 ([facility] Unhold - Provider: Vicenta Fulton, [...] remains LESS THAN 70 mg/dL, notify provider. 1543 ([facility] Hold - Provider: [facility] Autohold - Reason: Unreviewed Transfer Orders)1845 ([facility] Unhold - Provider: Vicenta Fulton, HALEY) HYDROmorphone (DILAUDID) injection 0.25 mg 0.25 mg, IntraVENous, EVERY 3 HOURS PRN, Starting on 12/01/23 at 1949, Until Discontinued, Pain Severe (7-10), [...] Rice RN)1414 (Given - Provider: Vicenta Fulton, HALEY)154 ([facility] Hold - Provider: [facility] Autohold - Reason: Unreviewed Transfer Orders)1845 ([facility] Unhold - Provider: Vicenta Fulton, [...] Orders)1846 (MAR Unhold - Provider: Vicenta Fulton, HALEY) ondansetron (ZOFRAN) injection 4 mg(Linked Group 2) 4 mg, IntraVENous, EVERY 6 HOURS PRN, Starting on Mon12/01/23 at 1837, Until Discontinued, Nausea, Vomiting, Administer if oral route cannot be used. 1852 (Given - Provider: Anne Shafer RN) 0542 (Given - Provider: Dalila Patton RN)1349 (Given - Provider: Vicenta Fulton, HALEY)1544 (MAR Hold - Provider: Kristyn Autohold - Reason: Unreviewed Transfer Orders)1846 (MAR Unhold - Provider: Vicenta Fulton, HALEY) ondansetron (ZOFRAN-ODT) disintegrating tablet 4 mg(Linked Group 2) 4 mg, Oral, EVERY 8 HOURS PRN, Starting on Mon12/01/23 at 1837, Until Discontinued, Nausea, Vomiting 185 (See Alternative - Provider: Anne Shafer RN) 0542 (See Alternative - Provider: Dalila Patton, HALEY)1349 (See Alternative - Provider: Vicenta Fulton, RN)1544 ([facility] Hold - Provider: [facility] Autohold - Reason: Unreviewed Transfer Orders)1846 ([facility] Unhold - Provider: Vicenta Fulton RN) polyethylene glycol (GLYCOLAX) packet 17 g 17 g, Oral, DAILY PRN, Starting on Mon12/01/23 at 1837, Until Discontinued, Constipation, First line therapy for constipation 1544 ([facility] Hold - Provider: [facility] Autohold - Reason: Unreviewed Transfer Orders)1846 ([facility] Unhold - Provider: Vicenta Fulton, RN)2137 (Given - Provider: Margie Hamm, HALEY) 0816 (Given - Provider: Jayne Magana RN) potassium bicarb-citric acid (EFFER-K) effervescent tablet 40 [...] dilute if GI adverse effects occur. 1544 ([facility] Hold - Provider: [facility] Autohold - Reason: Unreviewed Transfer Orders)1846 ([facility] Unhold - Provider: Vicenta Fulton, HALEY) potassium chloride (KLOR-CON M) extended release tablet [...] half and each half swallowed separately. 1544 ([facility] Hold - Provider: [facility] Autohold - Reason: Unreviewed Transfer Orders)184 ([facility] Unhold - Provider: Vicenta Fulton, HALEY) potassium chloride 10 mEq/100 mL IVPB (Peripheral [...] with CrCl less than 30 mL/min. 1544 ([facility] Hold - Provider: [facility] Autohold - Reason: Unreviewed Transfer Orders)1845 ([facility] Unhold - Provider: Vicenta Fulton, HALEY) prochlorperazine (COMPAZINE) injection 10 mg 10 mg, IntraVENous, EVERY 6 HOURS PRN, Starting on Mon12/01/23 at 1950, Until Discontinued, Nausea, If administering IV push, administer at a maximum rate of 5 mg/minute. Use if zofran ineffective 2000 (Given - Provider: Whitney Jade RN) 101 (Given - Provider: Vicenta Fulton, RN)1544 ([facility] Hold - Provider: [facility] Autohold - Reason: Unreviewed Transfer Orders)1845 ([facility] Unhold - Provider: Vicenta Fulton, HALEY) sodium chloride flush 0.9 % injection 10 mL 10 mL, IntraVENous, PRN, Starting on Mon12/01/23 at 1837, Until Discontinued, Line Care, After every IV line use 154 ([facility] Hold - Provider: [facility] Autohold - Reason: Unreviewed Transfer Orders)1845 ([facility] Unhold - Provider: Vicenta Fulton, [...] 1236 (New Bag - Prov ider: Vandana Rodriguez, HALEY)1640 (Stopped - Provider: Tennille Orr RN) PRN [...] or prosecute any alcohol or drug abuse patient.[facility] the event this information is protected by the Federal Confidentiality of Alcohol and Drug Abuse Patient Records regulations: The Federal rules restrict any use of the information to criminally investigate or prosecute any alcohol or drug abuse patient.[facility] the event this information is protected by the Federal Confidentiality of Alcohol and Drug Abuse Patient Records regulations: The Federal rules restrict any use of the information to criminally investigate or prosecute any alcohol or drug abuse patient.[facility] the event this information is protected by the Federal Confidentiality of Alcohol and Drug Abuse Patient Records regulations: The Federal rules restrict any use of the information to criminally investigate or prosecute any alcohol or drug abuse patient.[facility] Hospital[facility] the event this information is protected by the Federal Confidentiality of Alcohol and Drug Abuse Patient Records regulations: The Federal rules restrict any use of the information to criminally investigate or prosecute any alcohol or drug abuse patient.[facility] Reason for Visit (unrecogniz ed section and content) Reason Comments Received Outside Medical Records Reason Comments New Patient Hospital Admissions Officer - Other Specialty Diagnoses / Procedures Referred By Sally vigil Referred To Contact Diagnoses Calculus of bile duct with acute and chronic cholangitis without obstruction Calculus of bile duct with acute and chronic cholangitis without obstruction [K80.36] Procedures [place] ERCP DX COLLECTION SPECIMEN BRUSHING/WASHING [place] ESOPHAGOGASTRODUODENOSCOPY TRANSORAL DIAGNOSTIC CHG GI ENDOSCOPIC US S&I ENDOSCOPIC RETROGRADE CHOLANGIOPANCREATOGRAPHY with STENT EXCHANGE ESOPHAGOGASTRODUODENOSCOPY ENDOSCOPIC ULTRASOUND Braden Hawk MD [address] [place] [address] [facility] [address] [place] [address] Referral ID Status Reason Start Date Expiration Date Visits Re quested Visits Authorized [id number] 1 Reason Comments Consult Second opinion for c hronic pancreatitis Reason Comments Hospital Admissions Officer - Other FOR RECORDS PERTAINING TO PATIENTS [...] BE BASED ON THE PRIMARY CLINICAL RECORDS. [facility]. provides no warranty or guarantee of the accuracy or completeness of information in this document.
[2024-05-15 15:10] LABS: Cryptosporidium EIA Negative (Negative); Giardia lamblia Ag, EIA Negative (Negative)
[2024-05-15 15:25] LABS: C. Difficile PCR NEGATIVE
[2024-05-17 17:07] LABS: Calprotectin, Fecal 5 ug/g (0-120)
== END 2024-05-14 08:39 | disposition home or self-care (01) ==
LOC: LAB 08:41
PROVIDERS: PCP Nurse Practitioner Family
DX: K52.9 Noninfective gastroenteritis and colitis, unspecified (principal)
CPT/HCPCS: 83993; 87493